=== PATIENT | female | born 1960 | race Caucasian/White ===

== ENCOUNTER → 2018-02-28 10:26 | Outpatient (CLI) | payer BC, SELFPAY ==
[2018-02-28 14:27] LABS: Microscopic, Urine URINE MICROSCOPIC (MICROSCOPIC)
[2018-02-28 15:33] LABS: Appearance,Urine CLEAR (Clear); Bilirubin,Urine Negative (Negative); Blood, Urine Negative (Negative); Color,Urine YELLOW (Yellow); Glucose,Urine (UA) Negative (Negative); Ketones,Urine Negative (Negative); Leukocyte Esterase,Urine Negative (Negative); Nitrate,Urine Negative (Negative); Protein,Urine Negative (Negative); Urobilinogen,Urine 0.2 EU/dl (0.2)
[2018-02-28 15:46] LABS: Basophils % 0.3 % (0.1-2.0); Eosinophils # 0.2 K/mm3 (0.0-0.4); Eosinophils % 1.6 % (0.1-12.0); Hematocrit 39.8 % (37.0-47.0); Hemoglobin 12.4 g/dL (12.2-16.2); Lymphocytes # 1.9 K/mm3 (0.7-4.5); Lymphocytes % 18.8 K/mm3 (10-50); Mean Corpuscular HGB Conc 31.2 g/dL (31.8-35.4); Mean Corpuscular Hemoglobin 25.7 pg (27.0-31.2); Mean Corpuscular Volume 82.4 fl (81-99); Mean Platelet Volume 9.5 fl (7.4-10.4); Monocytes # 0.4 K/mm3 (0.1-1.0); Monocytes % 4.2 % (1.7-9.3); Neutrophils # 7.6 K/mm3 (1.8-7.8); Neutrophils % 75.2 % (37.0-80.0); Platelet Count 263 K/mm3 (142-424); Red Blood Count 4.83 M/mm3 (4.20-5.40); Red Cell Distribution Width 15.2 % (11.5-17.5); White Blood Count 10.1 K/mm3 (4.8-10.8)
[2018-02-28 15:53] LABS: Bacteria,Urine 2+ /lpf; Squamous Epithelial Cell,Urine TNTC #/hpf (0-5); Yeast,Urine 1+ /lpf
[2018-02-28 15:56] LABS: Hemoglobin A1C 6.4 % (0.0-7.0)
[2018-02-28 16:05] LABS: Alanine Aminotransferase 25 U/L (12-78); Albumin Level 3.9 gm/dL (3.4-5.0); Albumin/Globulin Ratio 1.1 (1.1-1.8); Alkaline Phosphatase 193 U/L (46-116); Anion Gap 14.9 mEq/L (5-15); Aspartate Amino Transferase 12 U/L (15-37); Bilirubin,Total 0.2 mg/dL (0.2-1.0); Blood Urea Nitrogen 10 mg/dL (7-18); Calcium 9.1 mg/dL (8.5-10.1); Carbon Dioxide 28 mmol/L (21.0-32.0); Chloride 98 mmol/L (98-107); Chol/HDL Ratio 2.8 (1-3.5); Cholesterol 138 mg/dL (140-200); Estimated Glomerular Filt Rate 87 ml/min (>60); GFR (African American) 105 ML/MIN (>60); Globulin 3.4 gm/dl (1.3-3.2); Glucose 99 mg/dL (74-106); HDL Cholesterol 49 mg/dL (29-89); LDL Cholesterol 52 mg/dL (0-130); Potassium 3.9 mmoL/L (3.5-5.1); Sodium 137 mmol/L (136-145); Thyroid Stimulating Hormone 1.57 uIU/ml (0.358-3.740); Total Protein,Serum 7.3 gm/dL (6.4-8.2); Triglycerides 186 mg/dL (30-200); VLDL Cholesterol 37 mg/dL (0-40)
[2018-02-28 17:32] LABS: Erythrocyte Sedimentation Rate 30 mm/hr (0-30)
[2018-03-02 08:17] LABS: Creatinine, Urine 56.1 mg/dL (Not Estab.); Microalbumin, Urine <3.0 ug/mL (Not Estab.)
[2018-03-02 18:11] LABS: Hep A Ab, IgM Negative (Negative); Hepatitis B Core Antibody IgM Negative (Negative); Hepatitis B Surface Antigen Negative (Negative)
[2018-03-03 05:26] LABS: Hepatitis C Antibody <0.1 s/co ratio (0.0-0.9); Vitamin B12 607 pg/mL (232-1245)
[2018-03-05 07:46] LABS: Vitamin D 25 Hydroxy 32.2 ng/mL (30.0-100.0)
== END ==
PROVIDERS: Visit Provider Emergency Medicine
DX: I25.10 Atherosclerotic heart disease of native coronary artery without angina pectoris (principal); E11.9 Type 2 diabetes mellitus without complications
CPT/HCPCS: 80053; 80061; 80074; 81001; 82043; 82570; 82607; 82652; 83036; 84436; 84443; 85025; 85651; 87086

== ENCOUNTER → 2018-03-17 08:05 | Outpatient (CLI) | payer BC, SELFPAY ==
--- NOTE | 2018-03-17 08:10 | XR_ITS ---
XR DEXA axial skeleton HISTORY: ITS.REASON: Osteopenia ORDERING PHYSICIAN: Bipin Stahl MD PATIENT AGE: 57 years COMPARISON: None FINDINGS: The BMD measured at the left femoral neck is 0.865 g/cm squared with a T score of -1.2. This is considered Osteopenic according to the World Health Organization criteria. Fracture risk is Moderate. Treatment is advised. The L1 L4 density has a T score of 0.4 IMPRESSION: Osteopenia with moderate fracture risk. Treatment suggested. Suggest follow-up exam March 2020
== END ==
PROVIDERS: Family Provider Family Medicine; PCP Emergency Medicine; Visit Provider Emergency Medicine
DX: M85.80 Other specified disorders of bone density and structure, unspecified site (principal)
CPT/HCPCS: 77080

== ENCOUNTER → 2018-03-17 13:51 | Outpatient (REF) | payer BC, SELFPAY ==
[2018-03-17 18:28] LABS: Basophils % 0.6 % (0.1-2.0); Eosinophils # 0.2 K/mm3 (0.0-0.4); Hematocrit 36.2 % (37.0-47.0); Hemoglobin 11.2 g/dL (12.2-16.2); Lymphocytes # 1.6 K/mm3 (0.7-4.5); Lymphocytes % 20.3 K/mm3 (10-50); Mean Corpuscular HGB Conc 30.8 g/dL (31.8-35.4); Mean Corpuscular Hemoglobin 25.2 pg (27.0-31.2); Mean Corpuscular Volume 81.8 fl (81-99); Mean Platelet Volume 8.8 fl (7.4-10.4); Monocytes # 0.4 K/mm3 (0.1-1.0); Neutrophils # 5.6 K/mm3 (1.8-7.8); Neutrophils % 72.1 % (37.0-80.0); Platelet Count 234 K/mm3 (142-424); Red Blood Count 4.43 M/mm3 (4.20-5.40); Red Cell Distribution Width 15.2 % (11.5-17.5); White Blood Count 7.7 K/mm3 (4.8-10.8)
[2018-03-17 18:38] LABS: Alanine Aminotransferase 26 U/L (12-78); Albumin Level 3.6 gm/dL (3.4-5.0); Albumin/Globulin Ratio 1.1 (1.1-1.8); Alkaline Phosphatase 163 U/L (46-116); Anion Gap 13.9 mEq/L (5-15); Aspartate Amino Transferase 13 U/L (15-37); Bilirubin,Total 0.2 mg/dL (0.2-1.0); Blood Urea Nitrogen 11 mg/dL (7-18); C-Reactive Protein < 0.2 mg/L (0.0-0.9); Carbon Dioxide 30 mmol/L (21.0-32.0); Chloride 102 mmol/L (98-107); Creatinine,Serum 0.74 mg/dL (0.55-1.02); Estimated Glomerular Filt Rate 81 ml/min (>60); GFR (African American) 98 ML/MIN (>60); Globulin 3.2 gm/dl (1.3-3.2); Glucose 103 mg/dL (74-106); Potassium 3.9 mmoL/L (3.5-5.1); Sodium 142 mmol/L (136-145); Total Protein,Serum 6.8 gm/dL (6.4-8.2)
[2018-03-17 19:12] LABS: Erythrocyte Sedimentation Rate 34 mm/hr (0-30)
[2018-03-19 13:14] LABS: Anti-Centromere B Antibodies <0.2 AI (0.0-0.9); Anti-Jo-1 <0.2 AI (0.0-0.9); Anti-Smith Antibody <0.2 AI (0.0-0.9); Antichromatin Antibodies <0.2 AI (0.0-0.9); Antiscleroderma-70 Antibodies <0.2 AI (0.0-0.9); RNP Antibodies <0.2 AI (0.0-0.9); Sjogren's Anti-SS-A <0.2 AI (0.0-0.9); Sjogren's Anti-SS-B <0.2 AI (0.0-0.9)
[2018-03-19 17:08] LABS: Anti-DNA (DS) Ab Qn <1 IU/mL (0-9); RA Latex Turbid. <10.0 IU/mL (0.0-13.9)
[2018-03-21 17:25] LABS: Anti-Cyclic Citrullinated Pept 3 units (0-19)
== END ==
LOC: LAB 13:51
PROVIDERS: Visit Provider Emergency Medicine
DX: M19.90 Unspecified osteoarthritis, unspecified site (principal); M25.50 Pain in unspecified joint
CPT/HCPCS: 80053; 85025; 85651; 86140; 86200; 86225; 86235; 86431

== ENCOUNTER → 2018-03-21 10:58 | Outpatient (CLI) | payer BC, SELFPAY ==
--- NOTE | 2018-03-21 10:59 | CI_ITS ---
Cerebrovascular Exam Indications: 785.9 Bruit. IMPRESSIONS 1. The bilateral vertebral arteries are patent with normal antegrade flow. 2. Study suggests less than 20% stenosis involving the right internal carotid artery and the left internal carotid artery. 3. Tortuous carotid arteries seen bilaterally. History: Coronary artery disease. Carotid duplex study. Complete study and Doppler flow study including spectral analysis, color and mena scale imaging. Height: Height: 160cm. Height: 63in. Weight: Weight: 85.7kg. Weight: 188.6lb. Body mass index: BMI: 33.5kg/m^2. Body surface area: BSA: 1.99m^2. Location: Vascular laboratory. Patient status: Outpatient. Tables: Arterial flow: + +--------+--------+ Location V sys V ed + +--------+--------+ Right CCA - proximal 73.1cm/s 22cm/s + +--------+--------+ Right CCA - distal 60.5cm/s 18.9cm/s + +--------+--------+ Right ECA 58.9cm/s -------- + +--------+--------+ Right ICA - proximal 77cm/s 32.2cm/s + +--------+--------+ Right ICA - mid 74cm/s 30.6cm/s + +--------+--------+ Right ICA - distal 61.3cm/s 20.4cm/s + +--------+--------+ Right vertebral 29.1cm/s -------- + +--------+--------+ Left CCA - proximal 60.5cm/s 17.3cm/s + +--------+--------+ Left CCA - distal 60.5cm/s 20.4cm/s + +--------+--------+ Left ECA 54.2cm/s -------- + +--------+--------+ Left ICA - proximal 60.5cm/s 22.3cm/s + +--------+--------+ Left ICA - mid 69.9cm/s 28.8cm/s + +--------+--------+ Left ICA - distal 65.7cm/s 30.6cm/s + +--------+--------+ Left vertebral 35.4cm/s -------- + +--------+--------+ Velocity ratios: + + + + + + Right, V sys Right, V ed Left, V sys Left, V ed + + + + + + Max ICA/dist CCA 1.27 1.7 1.16 1.5 + + + + + + (Report amended ) Electronically signed by: Nate Sharma [id number]
== END ==
PROVIDERS: Family Provider Family Medicine; PCP Emergency Medicine; Visit Provider Emergency Medicine
DX: R09.89 Other specified symptoms and signs involving the circulatory and respiratory systems (principal)
CPT/HCPCS: 93880

== ENCOUNTER → 2018-03-26 06:43 | Outpatient (CLI) | payer BC, SELFPAY ==
--- NOTE | 2018-03-26 06:45 | NM_ITS ---
History and Indications: Coronary artery disease, hypertension, diabetes, hyperlipidemia, family history, chest pain, shortness of breath and palpitations Procedure: Patient received a 0.4 mg of intravenous Lexiscan, resting heart rate was 53 bpm resting blood pressure 107/61, with Lexiscan maximum heart achieved was 79 bpm which is less than 85% of the maximum predicted heart rate and a blood pressure was 88/52. With Lexiscan patient complained of shortness of breath. Electrocardiogram: Resting electrocardiogram showed sinus bradycardia nonspecific ST-T changes, with Lexiscan less than 1.[address] segment depression noted from the baseline EKG. The EKG portion of the Lexiscan Myoview is nondiagnostic. Cardiac stress and resting SPECT images: Cardiac stress and resting SPECT images were obtained using technetium 99 Myoview 30.5 mCi stress and 9.9 mCi at rest, gated SPECT further analysis of segmental wall motion and calculation of the ejection fraction also done. Cardiac stress and the suspect images show uniform myocardial activity without segmental perfusion abnormality, computer derived ejection fraction is over 65% with no regional wall motion abnormality, right ventricle is normal size and contractility. Conclusion: 1. The EKG portion of the Lexiscan Myoview is nondiagnostic. 2. No scintigraphic evidence of reversible ischemia seen, computer derived ejection fraction is over 65% with no regional wall motion abnormality, right ventricle is normal size and contractility.
--- NOTE | 2018-03-26 06:45 | CA_ITS ---
PROCEDURE: 2-D M-mode and color Doppler study INDICATIONS FOR THE TEST: Chest pain + COPD Heart Murmur Tobacco Smoking Palpitations+ Fatigue+ Syncope Edema Hypertension+Diabetes Mellitus+ Rheumatic Fever SOB+BALLARD+Obesity+Hyperlipidemia+ Family History HD Additional History CAD, STENT, ABN EKG, ASTHMA PATIENT INFORMATION HEIGHT: 63 WEIGHT:189 GENDER: Female B/P:102/62 2-D/M-MODE INTERPRETATION: 2-D MEASUREMENTS OBSERVED VALUES IN CMS Right Ventricular Dimension (RVDd) 1.6 Interventricular Septum (Thickness)(IVsd) 1.0 Left Ventricular Internal Dimensions(LVIDd) 5.0 Left Ventricular Posterior Wall (Thickness)(LVPWd) 0.8 Aortic Root 2.6 Aortic Cusp Separation 1.9 Left Atrial Dimensions (LAD) 3.6 2D 1. Left atrium is qualitatively mildly enlarged, left ventricle is normal size, left ventricle wall thickness is normal, there is preserved left ventricular systolic function, visually estimated ejection fraction of 55% with no regional wall motion abnormality. 2. The right atrium and the ventricular normal size and contractility. 3. The aortic valve is minimally thickened and fibrosed. 4. The mitral and tricuspid valvular grossly normal. 5. The pulmonic valve is poorly visualized. 6. No significant pericardial effusion noted. DOPPLER INTERROGATION: Doppler interrogation of the aortic, mitral and tricuspid valvular presence of mild mitral and tricuspid regurgitation, tricuspid regurgitation jet velocity is adequate for calculation of the right ventricular systolic pressure, grade 1 diastolic dysfunction seen without tissue Doppler evidence of raised left atrial pressure. CONCLUSION: 1. Mildly left atrium, normal left ventricular size, visually estimated ejection fraction 55% with no regional wall motion abnormality, grade 1 diastolic dysfunction seen without tissue Doppler evidence of raised left atrial pressure. 2. Mild mitral and tricuspid regurgitation 3. No significant pericardial effusion noted.
== END ==
PROVIDERS: Family Provider Family Medicine; PCP Emergency Medicine; Visit Provider Internal Medicine
DX: I25.10 Atherosclerotic heart disease of native coronary artery without angina pectoris (principal); R06.09 Other forms of dyspnea; I20.9 Angina pectoris, unspecified; R00.1 Bradycardia, unspecified; R94.31 Abnormal electrocardiogram [ECG] [EKG]; I10 Essential (primary) hypertension; K21.9 Gastro-esophageal reflux disease without esophagitis; E78.49 Other hyperlipidemia
CPT/HCPCS: 78452; 93017; 93306; A9502; J2785

== ENCOUNTER → 2018-03-28 15:13 | Outpatient (CLI) | payer BC, SELFPAY ==
--- NOTE | 2018-03-28 15:14 | MM_ITS ---
MM Dig screening mamm BI w/CAD ORDERING PHYSICIAN : Bipin Stahl MD PATIENT AGE: 57 years GENDER: Female COMPARISON: Baseline study no previous INDICATION: ITS.REASON: screening TECHNIQUE: Standard CC and MLO images were obtained. R2 CAD reviewed. FINDINGS: Low-density breast bilaterally with scattered benign calcifications. RIGHT BREAST:No areas of concern follow-up in one year LEFT BREAST: Scattered areas of density minimal asymmetric densities but these are unimpressive and most likely benign. But most notable is the area labeled X at the medial superior breast fairly low-density but it measures 11 mm x 7 mm on I believe follow-up in 6 months would be the most reasonable approach & course of action. However would suggest a left mammogram 6 months to better establish baseline, & better confirm stability of scattered minimal areas of most likely Benign-appearing nodularity IMPRESSION: Baseline mammogram-------- 1. LEFT BREAST suggest follow-up left mammogram 6 months to confirm stability of Scattered small benign-appearing fairly low density nodular densities seen at left breast.. (Most notable is of these is the low-density area labeled X at medial superior aspect retroareolar left breast.) 2. Right breast. No areas of concern Follow-up in one year the adequate on the right BI-RADS Category: 3 Probably Benign Finding Short Term Follow-up RECOMMENDED FOLLOW-UP: 6M 6 MONTH FOLLOW-UP (A letter has been sent to the patient regarding results of the study.)
== END ==
PROVIDERS: Family Provider Family Medicine; PCP Emergency Medicine; Visit Provider Emergency Medicine
DX: Z12.31 Encounter for screening mammogram for malignant neoplasm of breast (principal)
CPT/HCPCS: 77067

== ENCOUNTER → 2018-04-04 14:30 | Outpatient (CLI) | payer BC, SELFPAY ==
--- NOTE | 2018-04-04 14:31 | MR_ITS ---
MR lumbar spine wo con, MR 3-d myelogram/MRCP HISTORY: PT states low back pain . Bilateral knee and leg pain. After sitting or standing for long period PT will have numbness in legs. LT leg worse. ITS.REASON: chronic pain ORDERING PHYSICIAN: Bipin Stahl MD PATIENT AGE: 57 years Comparison: None TECHNIQUE: Standard multiplanar multiecho sequences are performed without contrast. 3-D MIP and myelographic images are also rendered and reviewed FINDINGS: There is normal alignment. The spinal cord ends at the L1-L2 level. T11-T12 and T12-L1 show slight disc desiccation. L1-L2: Unremarkable. L2-L3: Unremarkable disc space. There is slight decreased T1 and increased T2 signal involving the anterior inferior aspect of the L2 vertebral body which may reflect some endplate changes. L3-L4: Mild concentric bulging disc. L4-L5: Mild facet and ligamentum flavum hypertrophy. There is a small amount fluid within the facet joints. There is mild bilateral foraminal narrowing. L5-S1: Unremarkable. No disc herniation or canal stenosis is evident. IMPRESSION: 1. Mild facet arthritic change L4-L5 with mild bilateral foraminal narrowing. 2. Other mild degenerative changes of the disc spaces. 3. No canal stenosis or disc herniation
== END ==
PROVIDERS: Family Provider Family Medicine; PCP Emergency Medicine; Visit Provider Emergency Medicine
DX: M54.9 Dorsalgia, unspecified (principal); G89.29 Other chronic pain
CPT/HCPCS: 72148; 76376

== ENCOUNTER → 2018-04-14 14:49 | Outpatient (POV) | payer BC, SELFPAY ==
[2018-04-14 15:08] VITALS: BP 111/59; PULSE 61; RESP 18; O2SAT 97
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
== END ==
PROVIDERS: PCP Emergency Medicine; Visit Provider Clinical Nurse Specialist Family Health
DX: M51.16 Intervertebral disc disorders with radiculopathy, lumbar region (principal); M50.30 Other cervical disc degeneration, unspecified cervical region
CPT/HCPCS: 99202

== ENCOUNTER → 2018-04-16 13:55 | Outpatient (CLI) | payer BC, SELFPAY | PROVIDERS: PCP Emergency Medicine; Visit Provider Internal Medicine Cardiovascular Disease | DX: G47.9 Sleep disorder, unspecified (principal); R06.09 Other forms of dyspnea; R06.83 Snoring; R40.0 Somnolence; E78.4 Other hyperlipidemia; I10 Essential (primary) hypertension; I20.9 Angina pectoris, unspecified; I25.10 Atherosclerotic heart disease of native coronary artery without angina pectoris; K21.9 Gastro-esophageal reflux disease without esophagitis; R00.1 Bradycardia, unspecified; R94.31 Abnormal electrocardiogram [ECG] [EKG] | CPT/HCPCS: 95806 ==

== ENCOUNTER → 2018-07-30 13:35 | Outpatient (CLI) | payer BC, SELFPAY ==
[2018-07-30 14:36] LABS: Blood Urea Nitrogen 11 mg/dL (7-18); Calcium 8.9 mg/dL (8.5-10.1); Carbon Dioxide 30 mmol/L (21.0-32.0); Chloride 99 mmol/L (98-107); Creatinine,Serum 0.77 mg/dL (0.55-1.02); Estimated Glomerular Filt Rate 78 ml/min (>60); GFR (African American) 94 ML/MIN (>60); Glucose 97 mg/dL (74-106); Sodium 138 mmol/L (136-145)
== END ==
PROVIDERS: Visit Provider Emergency Medicine
DX: M54.10 Radiculopathy, site unspecified (principal)
CPT/HCPCS: 80048

== ENCOUNTER → 2018-08-18 13:44 | Outpatient (POV) | payer BC, SELFPAY ==
[2018-08-18 14:07] VITALS: BP 128/89; PULSE 63; RESP 18; O2SAT 99; BMI 33.6
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
== END ==
PROVIDERS: PCP Emergency Medicine; Visit Provider Clinical Nurse Specialist Family Health
DX: M50.30 Other cervical disc degeneration, unspecified cervical region (principal); M51.36 Other intervertebral disc degeneration, lumbar region
CPT/HCPCS: 99213

== ENCOUNTER → 2018-09-10 17:47 | Outpatient (CLI) | payer BC, SELFPAY ==
[2018-09-10 18:45] LABS: Alanine Aminotransferase 52 U/L (12-78); Albumin Level 3.8 gm/dL (3.4-5.0); Albumin/Globulin Ratio 1.1 (1.1-1.8); Alkaline Phosphatase 134 U/L (46-116); Anion Gap 11.7 mEq/L (5-15); Aspartate Amino Transferase 31 U/L (15-37); Bilirubin,Total 0.2 mg/dL (0.2-1.0); Blood Urea Nitrogen 14 mg/dL (7-18); Calcium 9.7 mg/dL (8.5-10.1); Carbon Dioxide 32 mmol/L (21.0-32.0); Chloride 100 mmol/L (98-107); Chol/HDL Ratio 2.8 (1-3.5); Cholesterol 187 mg/dL (140-200); Creatinine,Serum 0.78 mg/dL (0.55-1.02); Estimated Glomerular Filt Rate 76 ml/min (>60); Free T4 (Free Thyroxine) 0.85 ng/dl (0.76-1.46); GFR (African American) 92 ML/MIN (>60); Globulin 3.6 gm/dl (1.3-3.2); Glucose 95 mg/dL (74-106); HDL Cholesterol 66 mg/dL (29-89); LDL Cholesterol 89 mg/dL (0-130); Potassium 3.7 mmoL/L (3.5-5.1); Sodium 140 mmol/L (136-145); Thyroid Stimulating Hormone 3.24 uIU/ml (0.358-3.740); Total Protein,Serum 7.4 gm/dL (6.4-8.2); Triglycerides 160 mg/dL (30-200); VLDL Cholesterol 32 mg/dL (0-40)
[2018-09-10 18:59] LABS: Basophils % 0.5 % (0.1-2.0); Eosinophils # 0.2 K/mm3 (0.0-0.4); Eosinophils % 1.7 % (0.1-12.0); Hemoglobin 11.1 g/dL (12.2-16.2); Lymphocytes # 2.3 K/mm3 (0.7-4.5); Lymphocytes % 24.2 % (10-50); Mean Corpuscular Hemoglobin 23.7 pg (27.0-31.2); Mean Corpuscular Volume 79.2 fl (81-99); Mean Platelet Volume 7.8 fl (7.4-10.4); Monocytes # 0.4 K/mm3 (0.1-1.0); Monocytes % 4.3 % (1.7-9.3); Neutrophils # 6.5 K/mm3 (1.8-7.8); Neutrophils % 69.4 % (37.0-80.0); Platelet Count 255 K/mm3 (142-424); Red Blood Count 4.68 M/mm3 (4.20-5.40); Red Cell Distribution Width 17.4 % (11.5-17.5); White Blood Count 9.3 K/mm3 (4.8-10.8)
[2018-09-10 20:36] LABS: Hemoglobin A1C 6.4 % (0.0-7.0)
[2018-09-12 07:27] LABS: Vitamin D 25 Hydroxy 31.8 ng/mL (30.0-100.0)
[2018-09-12 09:29] LABS: Creatinine, Urine 136.4 mg/dL (Not Estab.); Microalbumin, Urine 3.1 ug/mL (Not Estab.)
== END ==
PROVIDERS: Visit Provider Emergency Medicine
DX: E11.9 Type 2 diabetes mellitus without complications (principal); Z79.84 Long term (current) use of oral hypoglycemic drugs
CPT/HCPCS: 80053; 80061; 82043; 82570; 82652; 83036; 84439; 84443; 85025

== ENCOUNTER → 2018-09-30 12:48 | Outpatient (CLI) | payer BC, SELFPAY ==
--- NOTE | 2018-09-30 12:52 | MM_ITS ---
MM Dig mamm DX unilat LT CAD INDICATION: Follow-up abnormal mammogram ORDERING PHYSICIAN: Bipin Stahl MD PATIENT AGE: 57 years COMPARISON: 03/28/2018 TECHNIQUE: Standard images performed of the left breast FINDINGS: Fatty replaced fibroglandular tissue. Previously noted density in the superior aspect of the left breast is not redemonstrated on today's exam and is felt to have been due to overlapping fibroglandular tissue. This could have also been due to a cyst which has resolved. A benign-appearing nodular densities present in the upper aspect of the left breast unchanged measuring 5 mm IMPRESSION: Negative left mammogram, no evidence of malignancy Recommend continue screening mammogram in April 05, 2019 BI-RADS Category: 2 Benign Finding(s) RECOMMENDED FOLLOW-UP: 6M - 6 MONTH FOLLOW-UP (A letter has been sent to the patient regarding results of the study.)
== END ==
PROVIDERS: PCP Emergency Medicine; Visit Provider Emergency Medicine
DX: R92.8 Other abnormal and inconclusive findings on diagnostic imaging of breast (principal)
CPT/HCPCS: 77065

== ENCOUNTER → 2018-10-13 08:45 | Outpatient (CLI) | payer BC, SELFPAY ==
--- NOTE | 2018-10-13 08:47 | XR_ITS ---
XR DEXA axial skeleton HISTORY: ITS.REASON: osteopenia ORDERING PHYSICIAN: Bipin Stahl MD PATIENT AGE: 57 years COMPARISON: 03/17/2018 FINDINGS: The BMD measured at the Left femoral neck is 0.934 g/cm squared with a T score of -0.7. This is considered Normal according to the World Health Organization criteria. Fracture risk is Low. L1 L4 density has T score of 0.4. The L-spine density has decreased by 0.6% and the hip density has decreased by 0.1%. IMPRESSION: Normal bone density. Recommend follow-up exam in September 2020
== END ==
PROVIDERS: PCP Emergency Medicine; Visit Provider Emergency Medicine
DX: M85.89 Other specified disorders of bone density and structure, multiple sites (principal)
CPT/HCPCS: 77080

== ENCOUNTER → 2019-04-14 08:15 | Outpatient (CLI) | payer OTHER, SELFPAY ==
--- NOTE | 2019-04-14 09:00 | MM_ITS ---
PROCEDURE: MM DIG SCREENING MAMM BI W/CAD CLINICAL INDICATION: screening There is a history of breast cancer in the patient's maternal grandmother and paternal aunt. COMPARISON: [facility] MM Dig screening mamm BI w/CAD from 03/28/2018 DXLT MM Dig mamm DX unilat LT CAD from 09/30/2018 TECHNIQUE: Standard CC and MLO images were obtained. R2 CAD reviewed. FINDINGS: The breasts are composed primarily of fat with mild diffuse scattered fibroglandular densities throughout each breast. There are few scattered benign-appearing microcalcifications in each breast. There is a stable benign-appearing nodular density upper-outer quadrant left breast. There is no suspicious lesion and no suspicious microcalcifications. IMPRESSION: Fatty type breast parenchyma with no suspicious lesions seen BI-RAD Category: 2 Benign Finding(s) FOLLOW-UP: 1YR 1 Year Follow-up (A letter has been sent to the patient regarding results of the study.) Dictated by: Dr. Junaid Marcelo MD 04/15/2019 19:[address] Junaid Marcelo MD in [place] 04/15/2019 19:39
== END ==
PROVIDERS: PCP Emergency Medicine; Visit Provider Emergency Medicine
DX: Z12.31 Encounter for screening mammogram for malignant neoplasm of breast (principal)
CPT/HCPCS: 77067

== ENCOUNTER → 2019-06-18 06:22 | Outpatient (CLI) | payer MEDICARE, SELFPAY ==
--- NOTE | 2019-06-18 06:25 | CA_ITS ---
APPROVED REPORT EXAM: Comprehensive 2D, Doppler, and color-flow Echocardiogram Grinder Machine Setter: Kerry Patel RDCS Ht: 5 ft 3 in Wt: 205lbs BSA: 1.95 BP: 99/40 mmHg Indications: CAD,SOA,PRE-OP CLEARANCE,HTN,HLP,DM,OBESITY 2D Dimensions LVOT 1.83 cm (M/F) 1.5-2.5 M-Mode Dimensions RVDd 2.77 cm (0.9-2.6) LVDd 5.44 cm (3.5-5.7) LVDs 3.23 cm (3.5-5.7) IVSd 0.80 cm (0.6-1.1) PWd 0.95 cm (0.6-1.1) EF (Teich) 70.80% FS 40.60% EDV (Teich) 143.70 mL ESV (Teich) 41.90 mL LV Diastology E/A Ratio 1.32 Mitral Valve MV A Velocity 73.00 (40-130 cm/s) Left Ventricle Left atrium is mildly enlarged, left ventricle is normal size, mild concentric left ventricular hypertrophy, visually estimated ejection fraction 55% with no regional wall motion abnormality, grade 2 diastolic dysfunction seen without tissue Doppler evidence of raise left atrial pressure. Right Ventricle Right atrium and right ventricle mildly enlarged with normal contractility. Aortic Valve Aortic valve is minimally thickened and fibrosed, there is no aortic stenosis. Mitral Valve Mitral valve is grossly normal, there is mild mitral regurgitation. Tricuspid Valve Tricuspid valve is grossly normal, there is mild tricuspid regurgitation, calculated right ventricular systolic pressure is 46 mmHg which is moderately elevated. Pulmonic Valve Pulmonic valve is poorly visualized. Great Vessels Aortic root is normal size. Pericardium No significant pericardial effusion noted. Conclusion 1. Biatrial alignment, normal left ventricular size, mild concentric left ventricular hypertrophy, visually estimated ejection fraction 55% with no regional wall motion abnormality, grade 2 diastolic dysfunction seen without tissue Doppler evidence of raise left atrial pressure. 2. Mildly enlarged right atrium and right ventricle with normal contractility. 3. Mild mitral and tricuspid regurgitation. 4. No significant pericardial effusion noted. Electronically signed by : Alfred Raman, 06/19/2019 13:41:26
--- NOTE | 2019-06-18 06:32 | CA_ITS ---
APPROVED REPORT Exam: Pharmacologic Technologist: shalonda aguirre, Ht: 5 ft 3 in Wt: 200 lbs BSA: 1.93 m2 HR: 55 bpm BP: 132/64 mmHg Indications: CAD Medical History Medications: Metformin,,,,, Trazadone,,,,, Lasix,,,,, SyMBICORT,,,,, Tramadol,,,,, Montelukast,,,,, Fluoxetin,,,,, DicyCLOMINE,,,,, PriMIDONE,,,,, Sumatriptan,,,,, KETOROLAC,,,,, Ranolazine,,,,, Allergies: No known drug allergies Cardiac Risk Factors: HTN, Diabetes (non-insulin) Stress Test Details Test: LEXISCAN HR Resting HR: 56 bpm Max Heart Rate (APMHR): 163 bpm Max HR Achieved: 78 bpm Target HR (85% APMHR): 138 bpm % of APMHR: 47 Recovery HR: 67 bpm BP Resting BP: 132/64 mmHg Max BP: 132/64 mmHg Recovery BP: 117.0/59.0 mmHg ECG Resting ECG: Sinus Rhythm Medications Administered Cardizem Injection ( mg at ) Clinical Exercise duration: 04:00 min Highest Stage Achieved: Exercise capacity: 1.0 METs Stress ECG Conclusion Lexiscan stress completed. No coomplaints during infusion. Occasional PVC. Less than 1.5mm ST depression. Images reported seperately. Test Summary REST 06:55 . . 56 . 132/ 64 . . Stage 1 01:00 . . 75 . . . . Stage 2 01:00 . . 75 . 113/ 61 . . Stage 3 01:00 . . 74 . 120/ 65 . . Stage 4 01:00 . . 71 . 114/ 66 . Stop exercise at 04:00 RECOVERY 01:00 . . 72 . 116/ 66 . . RECOVERY 02:00 . . 70 . 117/ 59 . . RECOVERY 03:00 . . 67 . 122/ 64 . . RECOVERY 04:00 . . 64 . 122/ 64 . . RECOVERY 04:03 . . 64 . 122/ 64 . . Electronically signed by : Alfred Raman, 06/19/2019 12:24:17
--- NOTE | 2019-06-18 06:32 | NM_ITS ---
APPROVED REPORT Exam: Nuclear Stress Test Indication: short of breath, pre-op Stress Tech: Xin Chavarria AR Tech:Myra Sherwood YENYHerber RT(R)(N) Ht: 5 ft 3 in Wt: 200 lbs Bra Size: 44ddd HR: 56 bpm BP: 132/64 mmHg BSA: 1.93 m2 BMI: 35.4 History: short of breath, pre-op Procedure: Patient received a 0.4 mg of intravenous Lexiscan, resting heart rate 56 bpm, resting blood pressure 132/64 mmHg, with Lexiscan maximum heart rate achived was 78 bpm which is Less than 85 % of the maximum predicted heart rate and blood pressure was 132/64 mmHg. With Lexiscan, patient denied any complaint of chest pain. Electrocardiogram Resting electrocardiogram showed sinus rhythm nonspecific ST-T changes, with Lexiscan there is less than 1.[address] segment depression noted from the baseline EKG. The EKG portion of the Lexiscan Myoview is nondiagnostic. Cardiac Stress and Resting SPECT Images: Cardiac Stress and Resting SPECT images were obtained using technetium 99m Myoview 32.5 mCi stress and 10.66 mCi at rest. Gated SPECT with analysis of segmental wall motion and calculation of the ejection fraction also done. Cardiac stress and resting SPECT images show decreases activity in the anterior and apical wall which improves on the resting images suggestive of reversible ischemia, computer derived ejection fraction is over 65% with no regional wall motion abnormality, right ventricle is normal size and contractility. Conclusion: 1. The EKG portion of the Lexiscan Myoview is nondiagnostic. 2. Scintigraphic evidence of reversible ischemia involving the anterior, apical and anteroseptal wall, computer derived ejection fraction is over 65% with no regional wall motion abnormality, right ventricle is normal size and contractility. 3. Abnormal Lexiscan Myoview study. Electronically signed by : Alfred Raman, 06/19/2019 12:29:59
--- NOTE | 2019-06-18 09:27 | HMH.ITSHM ---
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 [] metoprolol gabapentin clodogrel tramadol atrovastain
== END ==
PROVIDERS: PCP Emergency Medicine; Visit Provider Internal Medicine Cardiovascular Disease
DX: R06.09 Other forms of dyspnea (principal); E11.9 Type 2 diabetes mellitus without complications; E66.9 Obesity, unspecified; E78.5 Hyperlipidemia, unspecified; I11.9 Hypertensive heart disease without heart failure; I25.118 Atherosclerotic heart disease of native coronary artery with other forms of angina pectoris; R07.9 Chest pain, unspecified; Z01.818 Encounter for other preprocedural examination; Z79.84 Long term (current) use of oral hypoglycemic drugs
CPT/HCPCS: 78452; 93017; 93306; A9502; J2785

== ENCOUNTER → 2019-06-26 13:30 | Outpatient (CLI) | payer MEDICARE, SELFPAY ==
[2019-06-26 14:04] LABS: Alanine Aminotransferase 19 U/L (12-78); Albumin Level 3.6 gm/dL (3.4-5.0); Albumin/Globulin Ratio 1.2 (1.1-1.8); Alkaline Phosphatase 148 U/L (46-116); Aspartate Amino Transferase 6 U/L (15-37); Bilirubin,Total 0.2 mg/dL (0.2-1.0); Blood Urea Nitrogen 7 mg/dL (7-18); Calcium 8.5 mg/dL (8.5-10.1); Carbon Dioxide 30 mmol/L (21.0-32.0); Chloride 92 mmol/L (98-107); Chol/HDL Ratio 2.4 (1-3.5); Cholesterol 146 mg/dL (140-200); Estimated Glomerular Filt Rate 103 ml/min (>60); GFR (African American) 125 ML/MIN (>60); Globulin 3.1 gm/dl (1.3-3.2); Glucose 94 mg/dL (74-106); HDL Cholesterol 60 mg/dL (29-89); LDL Cholesterol 69 mg/dL (0-130); Sodium 132 mmol/L (136-145); T4 (Thyroxine) 9.2 ug/dl (4.7-13.3); Total Protein,Serum 6.7 gm/dL (6.4-8.2); Triglycerides 86 mg/dL (30-200); VLDL Cholesterol 17 mg/dL (0-40)
[2019-06-26 14:09] LABS: Basophils # 0.1 K/mm3 (0-0.2); Basophils % 0.6 % (0.1-2.0); Eosinophils # 0.2 K/mm3 (0.0-0.4); Eosinophils % 1.7 % (0.1-12.0); Hematocrit 31.5 % (37.0-47.0); Hemoglobin 9.6 g/dL (12.2-16.2); Lymphocytes # 1.6 K/mm3 (0.7-4.5); Lymphocytes % 18.5 % (10-50); Mean Corpuscular HGB Conc 30.6 g/dL (31.8-35.4); Mean Corpuscular Hemoglobin 22.1 pg (27.0-31.2); Mean Corpuscular Volume 72.4 fl (81-99); Mean Platelet Volume 7.8 fl (7.4-10.4); Monocytes # 0.4 K/mm3 (0.1-1.0); Monocytes % 4.5 % (1.7-9.3); Neutrophils # 6.6 K/mm3 (1.8-7.8); Neutrophils % 74.6 % (37.0-80.0); Platelet Count 317 K/mm3 (142-424); Red Blood Count 4.35 M/mm3 (4.20-5.40); Red Cell Distribution Width 16.8 % (11.5-17.5); White Blood Count 8.8 K/mm3 (4.8-10.8)
[2019-06-26 16:34] LABS: Hemoglobin A1C 6.5 % (0.0-7.0)
[2019-06-26 17:09] LABS: Ferritin 8 ng/mL (8-388)
[2019-06-27 10:39] LABS: Creatinine, Urine 38.2 mg/dL (Not Estab.); Microalbumin, Urine 3.3 ug/mL (Not Estab.)
[2019-06-28 08:46] LABS: Iron 23 ug/dL (27-159); UIBC 487 ug/dL (131-425)
[2019-06-28 10:35] LABS: Iron Saturation 5 % (15-55)
[2019-06-28 18:00] LABS: Vitamin D 25 Hydroxy 23.4 ng/mL (30.0-100.0)
== END ==
PROVIDERS: Physician Assistant; Visit Provider Emergency Medicine
DX: R07.9 Chest pain, unspecified (principal); R06.00 Dyspnea, unspecified; L03.90 Cellulitis, unspecified; D64.9 Anemia, unspecified; E11.9 Type 2 diabetes mellitus without complications; Z79.84 Long term (current) use of oral hypoglycemic drugs
CPT/HCPCS: 80053; 80061; 82043; 82570; 82652; 82728; 83036; 83540; 83550; 84436; 84443; 85025

== ENCOUNTER → 2019-07-27 11:17 | Outpatient (CLI) | payer MEDICARE, SELFPAY ==
[2019-07-27 12:17] LABS: Basophils % 0.5 % (0.1-2.0); Eosinophils # 0.2 K/mm3 (0.0-0.4); Eosinophils % 1.6 % (0.1-12.0); Hematocrit 30.8 % (37.0-47.0); Hemoglobin 9.3 g/dL (12.2-16.2); Lymphocytes # 1.4 K/mm3 (0.7-4.5); Mean Corpuscular HGB Conc 30.2 g/dL (31.8-35.4); Mean Corpuscular Hemoglobin 22.2 pg (27.0-31.2); Mean Corpuscular Volume 73.6 fl (81-99); Mean Platelet Volume 7.7 fl (7.4-10.4); Monocytes # 0.3 K/mm3 (0.1-1.0); Monocytes % 3.7 % (1.7-9.3); Neutrophils # 7.2 K/mm3 (1.8-7.8); Neutrophils % 79.1 % (37.0-80.0); Platelet Count 296 K/mm3 (142-424); Red Blood Count 4.18 M/mm3 (4.20-5.40); White Blood Count 9.1 K/mm3 (4.8-10.8)
[2019-07-27 12:44] LABS: Anion Gap 14.2 mEq/L (5-15); Blood Urea Nitrogen 9 mg/dL (7-18); Calcium 8.4 mg/dL (8.5-10.1); Carbon Dioxide 28 mmol/L (21.0-32.0); Chloride 96 mmol/L (98-107); Creatinine,Serum 0.79 mg/dL (0.55-1.02); Estimated Glomerular Filt Rate 75 ml/min (>60); GFR (African American) 91 ML/MIN (>60); Glucose 98 mg/dL (74-106); Potassium 4.2 mmoL/L (3.5-5.1); Sodium 134 mmol/L (136-145)
== END ==
PROVIDERS: Visit Provider Nurse Practitioner Family
DX: I51.89 Other ill-defined heart diseases; E78.5 Hyperlipidemia, unspecified; I25.10 Atherosclerotic heart disease of native coronary artery without angina pectoris; R06.00 Dyspnea, unspecified; R07.9 Chest pain, unspecified
CPT/HCPCS: 36415; 80048; 85025

== ENCOUNTER → 2019-08-04 11:35 | Outpatient (CLI) | payer MEDICARE, SELFPAY | PROVIDERS: PCP Emergency Medicine; Visit Provider Urology | DX: D64.9 Anemia, unspecified (principal); E78.5 Hyperlipidemia, unspecified; I11.9 Hypertensive heart disease without heart failure; I25.10 Atherosclerotic heart disease of native coronary artery without angina pectoris; R00.2 Palpitations | CPT/HCPCS: 93270 ==

== ENCOUNTER → 2019-08-07 06:00 | Outpatient (CLI) | payer MEDICARE, SELFPAY ==
[2019-08-10 12:13] LABS: Occult Blood,Stool Negative (Negative)
[2019-08-10 12:13] LABS: Occult Blood,Stool Negative (Negative)
[2019-08-10 12:13] LABS: Occult Blood,Stool Positive (Negative)
== END ==
PROVIDERS: Visit Provider Nurse Practitioner Family
DX: D64.9 Anemia, unspecified (principal)
CPT/HCPCS: 82272; G0328

== ENCOUNTER 2019-08-21 09:00 | Outpatient (RCR) | payer MEDICARE, SELFPAY | END 2019-08-21 09:05 | disposition home or self-care (01) | LOC: PT 09:00 | PROVIDERS: PCP Emergency Medicine; Visit Provider Nurse Practitioner Family | DX: M25.512 Pain in left shoulder (principal) | CPT/HCPCS: 97010; 97012; 97014; 97035; 97110; 97140; 97163; G0283 ==

== ENCOUNTER → 2019-10-09 11:43 | Outpatient (CLI) | payer MEDICARE, SELFPAY | PROVIDERS: PCP Emergency Medicine; Visit Provider Emergency Medicine | DX: G47.33 Obstructive sleep apnea (adult) (pediatric) (principal) | CPT/HCPCS: G0399 ==

== ENCOUNTER → 2020-01-12 10:12 | Outpatient (CLI) | payer MEDICARE, SELFPAY ==
--- NOTE | 2020-01-12 10:14 | CA_ITS ---
APPROVED REPORT Right Lower Extremity Venous Study for DVT. Jawbone Breaker: MARIKA HammondT Indications Lower Extremity Pain: Right Lower Extremity Edema: Right edema rt foot, rt knee surgery 10/2019 Risk Factors Obesity Medications Plavix Vein Imaging CFV (R): compressive, spontaneous, phasic, augmentation FEM (R): compressive, spontaneous, phasic, augmentation POP (R): compressive, spontaneous, phasic, augmentation PTV (R): Compressible GSV (R): Compressible Peroneals (R):Compressible GAS (R): Compressible Findings Study suggests no evidence of DVT of the right lower extremity. Study suggests no evidence of SVT of the right lower extremity. Conclusion Study suggests no evidence of DVT of the right lower extremity. Study suggests no evidence of SVT of the right lower extremity. Critical Notification Physician Notified Date: 01/12/2020 Time: 10:37 Physician Name: Jose R Atkinson office Electronically signed by : Bay Hernandez, 01/14/2020 08:50:59
[2020-01-12 11:30] LABS: Basophils % 0.8 % (0.1-2.0); Eosinophils # 0.2 K/mm3 (0.0-0.4); Eosinophils % 3.1 % (0.1-12.0); Hematocrit 33.5 % (37.0-47.0); Hemoglobin 10.5 g/dL (12.2-16.2); Lymphocytes # 1.3 K/mm3 (0.7-4.5); Lymphocytes % 26.6 % (10-50); Mean Corpuscular HGB Conc 31.3 g/dL (31.8-35.4); Mean Corpuscular Hemoglobin 25.3 pg (27.0-31.2); Mean Platelet Volume 8.6 fl (7.4-10.4); Monocytes # 0.3 K/mm3 (0.1-1.0); Monocytes % 6.5 % (1.7-9.3); Platelet Count 191 K/mm3 (142-424); Red Blood Count 4.14 M/mm3 (4.20-5.40); Red Cell Distribution Width 16.6 % (11.5-17.5); White Blood Count 4.8 K/mm3 (4.8-10.8)
[2020-01-12 11:32] LABS: Chloride 103 mmol/L (98-107); Potassium 4.9 mmoL/L (3.5-5.1); Sodium 138 mmol/L (136-145)
[2020-01-12 11:34] LABS: Blood Urea Nitrogen 9 mg/dl (7-17); Estimated Glomerular Filt Rate 103 ml/min (>60); GFR (African American) 124 ML/MIN (>60)
[2020-01-12 11:35] LABS: Alanine Aminotransferase 16 U/L (12-78); Albumin Level 3.4 g/dl (3.5-5.0); Albumin/Globulin Ratio 1.4 (1.1-1.8); Alkaline Phosphatase 78 U/L (38-126); Anion Gap 11.9 mEq/L (5-15); Aspartate Amino Transferase 17 U/L (14-36); Calcium 8.8 mg/dl (8.4-10.2); Carbon Dioxide 28 mmol/L (22.0-30.0); Cholesterol 118 mg/dl (140-200); Globulin 2.4 g/dL (1.3-3.2); Glucose 83 mg/dl (74-100); Total Protein,Serum 5.8 g/dl (6.3-8.2); Triglycerides 138 mg/dl (30-150); VLDL Cholesterol 28 mg/dL (0-40)
[2020-01-12 11:36] LABS: Bilirubin,Total 0.1 mg/dl (0.2-1.3); Chol/HDL Ratio 2.2 (1-3.5); HDL Cholesterol 53 mg/dl (40-60)
[2020-01-12 11:47] LABS: Direct LDL Cholesterol 51.52 mg/dL (100-129)
[2020-01-12 11:49] LABS: Hemoglobin A1C 6.1 % (4.0-6.0)
== END ==
PROVIDERS: PCP Emergency Medicine; Visit Provider Family Medicine
DX: M79.604 Pain in right leg (principal); R60.9 Edema, unspecified; E11.9 Type 2 diabetes mellitus without complications; I11.9 Hypertensive heart disease without heart failure
CPT/HCPCS: 36415; 80053; 80061; 83036; 85025; 93971

== ENCOUNTER 2020-03-09 13:23 | Emergency (ER) | payer MEDICARE, MEDICAID, SELFPAY ==
[2020-03-09 13:23] VITALS: BP 139/79; PULSE 73; RESP 19; TEMP 36.6; O2SAT 96; BMI 38.9
--- NOTE | 2020-03-09 13:38 | XR_ITS ---
PROCEDURE: XR FINGER RT MIN 2V CLINICAL INDICATION: wound Dog bite, pain COMPARISON: No exams were available for comparison FINDINGS: There has been amputation at the proximal aspect of the distal phalanx of the 5th finger. Overlying bandage artifact obscures fine detail. There is a small bony fragment noted at the amputation site anteriorly on the lateral view. IMPRESSION: Status post amputation at the proximal aspect of the distal phalanx of the 5th finger Dictated by: Nate Sharma MD 03/09/2020 16:09 Nate Sharma MD in [place] 03/09/2020 16:09
--- NOTE | 2020-03-09 13:39 | HMH.EDGENADL ---
ED Disposition Clinical Impression: Dog bite, hand Qualifiers: Encounter type: initial encounter Laterality: right Qualified Code(s): S61.451A - Open bite of right hand, initial encounter Partial traumatic amputation of finger through phalanx Qualifiers: Encounter type: initial encounter Qualified Code(s): S68.629A - Partial traumatic transphalangeal amputation of unspecified finger, initial encounter Disposition: Home, Self-Care Condition on Discharge: Good Additional Instructions: Augmentin as prescribed. Do not eat or drink anything after midnight tonight. See Dr. Howell in her office tomorrow at 9 AM. Keep bandage on until then. Keep hand elevated. Mcallister as needed for pain. Do not take tramadol while taking Mcallister. Additional instructions for CONTROLLED SUBSTANCES: You have been prescribed a medication that is a controlled substance. Controlled substances include pain medications known as opiates and sedative nerve medications known as benzodiazepines. Tramadol, fioricet, and gabapentin are also controlled substances. Some common opiates include: Codeine (such as Tylenol #3) Hydrocodone (Vicodin, Lortab, Lorcet, Mcallister) Oxycodone (Percocet, Percodan, Oxycodone, Oxy IR) Some common benzodiazepines include: Diazepam (Valium) Lorazepam (Ativan) Alprazolam (Xanax) Clonazepam (Klonopin) Oxazepam (Serax) All of these controlled substances are highly addictive and frequently abused. Misuse can and frequently does lead to addiction as well as overdose and . Medication should be stored in a locked cabinet or other secure storage unit. Do not store the medication in a motor vehicle. Short term supplies, 3 days or less, are prescribed because of the highly addictive nature of the medication. Any of the controlled substance medication NOT taken should be disposed of properly and NOT SAVED. The recommended method of disposing of unused medications is: Place the medicines in a sealable plastic bag. If the medicine is a solid, crush it or add water to dissolve it. Add something undesirable (cat litter, coffee grounds, etc.) Dispose of sealed bag in household trash Do not flush or pour unused medicines down a sink or drain. Controlled substances should not be shared, given away or sold. Because of the addictive nature and frequent abuse, these medications are sometimes stolen. These medications should be kept in a safe place where they cannot be stolen. Do not keep them in your car or purse. Lost or stolen prescriptions for controlled substances WILL NOT BE REFILLED in this emergency department, regardless of whether a police report was filed. Prescriptions: Hydrocod/Acet 5/325 mg [Mcallister 5/325mg tablet] 1 tab PO Q6HP PRN #10 tab PRN Reason: Pain Transmission Status: Sent to [facility] Amoxicillin/Potassium Clav [Augmentin 875-125 Tablet] 1 tab PO Q12H #20 tab Transmission Status: Pending to [facility] Referrals: Bipin Stahl MD [Primary Care Provider] - - Critical Care Critical Care Time: No Attestation: On 03/09/20, the high probability of a clinically significant, sudden or life threatening deterioration of the following system(s) required my full and direct attention, intervention and personal management. The time I documented below is in addition to time spent performing reported procedures but includes the following listed in this critical care notation. Medical Decision Making - Amador Inquiry Pt receiving controlled substance: Yes Amador was queried for this patient: Yes Reference #:: [id number] Risks and benefits of using a controlled substance: were discussed with pt by me Comment: 30 rxs. last rxs tramadol and gabapentin 02/26/20 Vital Signs: 03/09/20 13:23 03/09/20 13:58 Temperature 97.9 F Temperature Source Oral Pulse Rate [Left Radial] 73 93 H Respiratory Rate 19 14 Blood Pressure [Right Arm] 139/79 116/65 Blood Pressure Mean [Right Ar
[2020-03-09 13:58] VITALS: BP 116/65; PULSE 93; RESP 14; O2SAT 97
--- NOTE | 2020-03-09 14:41 | PC.NURSE ---
Addendum entered by Manda Vazquez RN 03/09/20 14:41: correction speaking to dr poole Original Note: speaking to dr haro
[2020-03-09 15:14] VITALS: BP 116/65; PULSE 77; RESP 16; TEMP 36.6; O2SAT 99
== END 2020-03-09 15:16 | disposition home or self-care (01) ==
PROVIDERS: Emergency Provider Emergency Medicine; PCP Emergency Medicine
DX: S68.616A Complete traumatic transphalangeal amputation of right little finger, initial encounter (principal); W54.0XXA Bitten by dog, initial encounter; Y92.017 Garden or yard in single-family (private) house as the place of occurrence of the external cause; E11.40 Type 2 diabetes mellitus with diabetic neuropathy, unspecified; Z79.84 Long term (current) use of oral hypoglycemic drugs; I25.10 Atherosclerotic heart disease of native coronary artery without angina pectoris; E78.5 Hyperlipidemia, unspecified; I10 Essential (primary) hypertension; K21.9 Gastro-esophageal reflux disease without esophagitis; Z23 Encounter for immunization; Z79.899 Other long term (current) drug therapy; G43.709 Chronic migraine without aura, not intractable, without status migrainosus
CPT/HCPCS: 73140; 90471; 90715; 99282

== ENCOUNTER 2020-03-09 20:45 | Emergency (ER) | payer MEDICARE, MEDICAID, SELFPAY ==
[2020-03-09 20:53] VITALS: BP 99/48; PULSE 70; RESP 16; TEMP 36.5; O2SAT 96; BMI 45.4
--- NOTE | 2020-03-09 21:29 | PC.NURSE ---
speaking with DR. Howell
--- NOTE | 2020-03-09 21:30 | PC.NURSE ---
speaking to dr bernard
--- NOTE | 2020-03-09 21:35 | HMH.EDRECH ---
ED Disposition Clinical Impression: Bite by animal Partial traumatic amputation of finger through phalanx Qualifiers: Encounter type: initial encounter Qualified Code(s): S68.629A - Partial traumatic transphalangeal amputation of unspecified finger, initial encounter Disposition: Home, Self-Care Condition on Discharge: Good Instructions: Animal Bites Additional Instructions: will redress and keep appt with ortho in am Referrals: Bipin Stahl MD [Primary Care Provider] - - Critical Care Critical Care Time: No Attestation: On 03/09/20, the high probability of a clinically significant, sudden or life threatening deterioration of the following system(s) required my full and direct attention, intervention and personal management. The time I documented below is in addition to time spent performing reported procedures but includes the following listed in this critical care notation. Medical Decision Making - Medical Records Medical records reviewed: Yes: I reviewed the patient's medical records. - Amador Inquiry Pt receiving controlled substance: No Vital Signs: 03/09/20 20:53 Temperature 97.7 F Temperature Source Oral Pulse Rate [Right Brachial] 70 Respiratory Rate 16 Blood Pressure [Right Arm] 99/48 L Blood Pressure Mean [Right Arm] 65 02 Sat by Pulse Oximetry 96 Oxygen Delivery Method Room Air - Physician Consults Physician Consulted: joana Reason -: Pt condition Recheck HPI - General Chief Complaint: Animal Bite Stated Complaint: AO 922 1300 bleeding Time Seen by Provider: 03/09/20 21:15 Mode of Arrival: Family Vehicle Source of Information: Patient, Medical Record Limitations: No Limitations Description of Symptoms (Recalled from ER Triage Doc. by RN): return for continued bleeding in right hand,5th digit; presented earlier for a dog bite, noted end of finger to be missing, copious amounts of bleeding noted in time with heartbeat. vss. emv 15. noted the digit to have cyanosis present. - History of Present Illness HPI narrative: persistent bleeding from injury site complaint: wound re-check Initial visit (ago): hour(s) Initial visit for: animal bite Returns today for: wound recheck Context: other (bleeding ) Associated symptoms: none - Related Data Home Medications Medication Instructions Recorded Confirmed Blood Sugar Diagnostic [Accu-Chek 0 1000units .ROUTE .MEDSUPPLY 07/14/18 02/25/20 Billie Plus test strp] Blood-Glucose Meter [Blood Glucose 0 1000units .ROUTE .MEDSUPPLY 07/14/18 02/25/20 Meter] Lancets 0 1000units .ROUTE .MEDSUPPLY 07/14/18 02/25/20 fexofenadine 180 mg tablet 180 mg PO DAILY tab 01/27/20 02/25/20 Previous Rx's Medication Instructions Recorded beclomethasone dipropionate 40 1 inh INHALATION BID #10.6 g 04/29/19 mcg/actuation HFA breath activated aerosol lisinopril 2.5 mg tablet 2.5 mg PO DAILY #90 tab 06/29/19 ferrous sulfate 142 mg (45 mg 142 mg PO DAILY #90 tab 06/30/19 iron) tablet,extended release cholecalciferol (vitamin D3) 25 1,000 unit PO DAILY 90 Days #90 cap 07/01/19 mcg (1,000 unit) capsule ketorolac 0.4 % eye drops 1 drp OPHTHALMIC BID #5 ml 07/29/19 fluoxetine 20 mg capsule See Rx Instructions .ROUTE 08/21/19 .COMPLEX #90 unspecified montelukast 10 mg tablet See Rx Instructions .ROUTE 08/24/19 .COMPLEX #90 unspecified fluoxetine 40 mg capsule 40 mg PO DAILY #90 cap 08/27/19 albuterol sulfate 90 mcg/actuation See Rx Instructions .ROUTE 09/17/19 aerosol inhaler .COMPLEX #8.5 unspecified fluticasone propionate 50 See Rx Instructions .ROUTE 11/11/19 mcg/actuation nasal .COMPLEX #9.9 unspecified spray,suspension ranolazine 500 mg tablet,extended 500 mg PO BID #180 tab 11/25/19 release,12 hr alendronate 70 mg tablet See Rx Instructions .ROUTE 12/04/19 .COMPLEX #12 unspecified sumatriptan succinate 100 mg tablet 100 mg PO Q2H PRN #9 tab 12/04/19 isosorbide mononitrate 30 mg See Rx Instructions .ROUTE
[2020-03-09 21:40] VITALS: BP 104/54; PULSE 74; RESP 18; TEMP 36.6; O2SAT 97
== END 2020-03-09 21:46 | disposition home or self-care (01) ==
PROVIDERS: Emergency Provider Emergency Medicine; PCP Emergency Medicine
DX: S61.451A Open bite of right hand, initial encounter (principal)
CPT/HCPCS: 73140; 90471; 90715; 99281; 99282

== ENCOUNTER → 2020-03-10 08:40 | Outpatient (CLI) | payer MEDICARE, MEDICAID, SELFPAY ==
[2020-03-10 08:43] LABS: MANUAL DIFFERENTIAL MANUAL DIFFERENTIAL (MANUAL DIFF)
[2020-03-10 08:56] LABS: Basophils # 0.1 K/mm3 (0-0.2); Basophils % 0.7 % (0.1-2.0); Eosinophils # 0.2 K/mm3 (0.0-0.4); Eosinophils % 2.5 % (0.1-12.0); Hematocrit 33.2 % (37.0-47.0); Hemoglobin 10.5 g/dL (12.2-16.2); Lymphocytes # 1.2 K/mm3 (0.7-4.5); Lymphocytes % 15.8 % (10-50); Mean Corpuscular HGB Conc 31.7 g/dL (31.8-35.4); Mean Corpuscular Hemoglobin 26.5 pg (27.0-31.2); Mean Corpuscular Volume 83.5 fl (81-99); Monocytes # 0.3 K/mm3 (0.1-1.0); Monocytes % 4.1 % (1.7-9.3); Neutrophils # 5.9 K/mm3 (1.8-7.8); Platelet Count 178 K/mm3 (142-424); Red Blood Count 3.98 M/mm3 (4.20-5.40); Red Cell Distribution Width 16.6 % (11.5-17.5); White Blood Count 7.6 K/mm3 (4.8-10.8)
[2020-03-10 09:04] LABS: Chloride 102 mmol/L (98-107); Potassium 4.6 mmoL/L (3.5-5.1); Sodium 138 mmol/L (136-145)
[2020-03-10 09:07] LABS: Alanine Aminotransferase 20 U/L (12-78); Albumin Level 3.4 g/dl (3.5-5.0); Albumin/Globulin Ratio 1.5 (1.1-1.8); Alkaline Phosphatase 111 U/L (38-126); Anion Gap 11.6 mEq/L (5-15); Aspartate Amino Transferase 20 U/L (14-36); Blood Urea Nitrogen 13 mg/dl (7-17); Carbon Dioxide 29 mmol/L (22.0-30.0); Estimated Glomerular Filt Rate 103 ml/min (>60); GFR (African American) 124 ML/MIN (>60); Globulin 2.3 g/dL (1.3-3.2); Glucose 131 mg/dl (74-100); Total Protein,Serum 5.7 g/dl (6.3-8.2)
[2020-03-10 09:08] LABS: Bilirubin,Total 0.1 mg/dl (0.2-1.3)
[2020-03-10 09:25] LABS: Coronavirus 19 IgG Antibody Negative (Negative); Coronavirus 19 IgM Antibody Negative (Negative); Eosinophils % 1 % (0-3); Lymphocytes % 17 % (10-50); Monocytes % 3 % (2-9); Neutrophils % 78 % (42-76); Platelet Estimate Normal; RBC Morphology Normal; Total Cells Counted 100
== END ==
PROVIDERS: Visit Provider Orthopaedic Surgery
DX: Z01.89 Encounter for other specified special examinations; S68.629A Partial traumatic transphalangeal amputation of unspecified finger, initial encounter; W54.0XXA Bitten by dog, initial encounter
CPT/HCPCS: 36415; 80053; 85007; 85014; 85018; 85048; 85049; 86328

== ENCOUNTER 2020-03-10 09:23 | Day surgery (SDC) | payer MEDICARE, MEDICAID, SELFPAY ==
[2020-03-10 11:21] VITALS: BP 105/59; PULSE 65; RESP 18; TEMP 36.2; O2SAT 96; BMI 38.9
[2020-03-10 11:43] LABS: POC Glucose,Bedside 101 (70-110)
--- NOTE | 2020-03-10 12:45 | XR_ITS ---
PROCEDURE: XR FINGER RT MIN 2V CLINICAL INDICATION: 5TH DIGIT AMPUTATION REVISION COMPARISON: No exams were available for comparison FINDINGS: Fluoroscopy time: 4 seconds. Images submitted during the revision of the distal phalangeal amputation available for review. IMPRESSION: Fluoro guided procedure Dictated by: Nate Sharma MD 03/10/2020 17:27 Nate Sharma MD in [place] 03/10/2020 17:27
--- NOTE | 2020-03-10 12:52 | P.PN_ITS ---
[facility] Anesthesia Checklist - Patient Identification Patient Identification: Arm Band, Verbal (Name & ) - Structural Data Admitted From: Direct Admit Planned Operative Procedure/s: Right 5th metacarpal revision of amputation Consent for Planned Operative Procedure(s) Verified: No Verified Documents: Surgical Consent, History and Physical - NPO Status Verified Time NPO: 00:00 - Chart Verification Results Verified: CBC, BMP, PT, PTT, INR - Additional verifications Fingerstick Blood Glucose: 101 Anesthesia Reactions: No Hx Blood Transfusions: No Blood Transfusion Reaction: No - Airway Assessment C-Spine Mobility Assessed: Yes (supple neck, TMD 3, MP 3) TMJ Mobility Assessed: Yes Dentition: Poor Dentition (chipped teeth) - Neurological Assessment Level of Consciousness: Awake, Alert, Appropriate, Follows Commands Hx Seizures: No Numbness or tingling in extremities: No - Anesthesia Plan Anesthesia Risk discussed: Yes Anesthesia Plan: Verified ASA Class: III Anesthesia Type: MAC [facility] History I have reviewed the patient's past medical history: Yes Medical History: Reports:: Anxiety, Asthma, Coronary Artery Disease, Depression, Diabetes Mellitus Type 2, Gastroesophageal Reflux Disease(GERD), Hyperlipidemia, Hypertension, Migraine Denies:: Cancer, Diabetes Mellitus Type 1, Internal Pacemaker, MRSA, Seizures *Have you ever received a pneumonia vaccine?: No *Have you received a flu vaccine this season?: No Other Medical History: Reports: Arthritis, Other. Denies: Blood Transfusion Reaction, Acquired Immunodeficiency Syndrome (AIDS) Comment:: Morbid obesity Anesthesia experience/problems:: No prior complications. Consented, plan discussed and verified. Laterality Cases: Bilateral: Arthroscopy Knee, Other Other Surgeries: Yes: Cardiac Catheterization, Cholecystectomy, Colonoscopy, Coronary Stent, Dilation and Curettage, EGD, Hysterectomy-Total, Hysterectomy-Partial, Tubal Ligation, Other. No: Pacemaker Amputation: No Fractures: Yes - *Social History Last grade of school completed: Advanced degree Smoking Status: Never smoker # Packs/Day (cigarettes): 1 Alcohol Intake: never Substance Use Type: denies use *Occupational Status:: disabled Housing: house Household Members: spouse *Travel in the last 8 weeks: None - Psychiatric History Pschychiatric History:: Reports:: Anxiety, Depression Family Hx:: Cancer, Diabetes, Heart Attack
[2020-03-10 13:01] VITALS: BP 124/69; PULSE 67; RESP 18; TEMP 36.2; O2SAT 93
[2020-03-10 13:11] VITALS: BP 95/55; PULSE 65; RESP 18; O2SAT 97
[2020-03-10 13:21] VITALS: BP 98/67; PULSE 86; RESP 18; O2SAT 94
[2020-03-10 13:33] VITALS: BP 104/50; PULSE 73; RESP 18; O2SAT 96
--- NOTE | 2020-03-10 13:40 | HMH.OPNOTE ---
Date of procedure: 03/10/20 Pre-op Diagnosis:: 1) dog bite 2) traumatic amputation, R small fingertip Post-op Diagnosis:: 1) dog bite 2) traumatic amputation, R small fingertip Procedure performed:: revision amputation R small finger Surgeon:: Jeannette Howell MD Catering Server(s):: Pippa Avery BONE GRINDER:: Rui Hannahferty Anesthesia: MAC, regional (digital nerve block) Estimated blood loss (mL): 5 Clinical Note:: 59yo F presents for initial orthopaedic evaluation of an injury to the R small finger sustained yesterday. She was trying to break up a fight between her dogs and one of them bit off the tip of her R small finger. The tip was not recovered and she does not know what happened to it. She presented to the ED, where exam/XR revealed a distal phalanx fracture and partial fingertip amputation with exposed bone. The finger was irrigated and clean dressings applied. She was discharged on oral Augmentin. Last tetanus immunization unknown; booster given in ED. She reports a history of diabetes, HTN, CAD, HL and asthma. She take aspirin and plavix at baseline but stopped them yesterday after the injuyr. She says she has chronic numbness of her right ring and small fingers, has a history of neuropathy, and therefore she is not currently in much pain. She is left hand dominant. She has been NPO after midnight last night. With exposed bone, I recommend surgical I&D with revision amputation. I suspect with little distal phalanx bone remaining, the DIP may need to be disarticulated. I discussed the procedure with the patient, and explained that I will try to keep as much bone as possible, but the goal is to close the fingertip so there is not exposed bone. Being diabetic, I would prefer not to let this heal secondarily with exposed bone. I discussed the risks of surgery with the patient, including bleeding, infection, wound healing complications, need for further revision amputation, and post-operative phantom pain and cold intolerance. The patient vocalized understanding and informed consent was obtained. Operative findings:: R small fingertip amputation with exposed soft tissue and bone; distal fingertip wound 1.5cm without gross contamination Operative note:: The patient was identified in preoperative holding and right small finger signed by myself. Surgical consent reviewed with the patient. She was then taken to the OR where she was placed supine on the operative table with the right upper extremity on a hand table. MAC was administered by anesthesia, and IV ancef started. After thoroughly cleansing the right hand and swabbing the base of the small finger with chlorhexidine swabs, a digital nerve block was performed using 10 cc of a 50:50 mix of 0.5% Marcaine and 1% lidocaine, both without epinephrine. While the digital block set up, the right hand was scrubbed with a gentle Hibiclens prep and the right upper extremity prepped and draped in the usual sterile fashion. Timeout was performed, identifying the correct patient, correct procedure, and correct site. I began the procedure by first applying a small finger tourniquet with a mars drain. Once the finger tourniquet was up, I tested the patient's sensation at the tip of her finger and determined that the digital nerve block was successful; the finger was completely anesthetized. The tip of the finger was dried with Ray-Sergio and wound inspection performed. The traumatic amputation was very clean but oblique and ragged in nature. The tissue was slightly crushed with a purple discoloration at the tip. It measured around 1.5cm in width. Distal phalanx bone was exposed; only a small proximal stump of the bone remained. I was unable to close the finger in its present state, so the DIP joint was disarticulated and the distal phalanx removed entirely. The distal wound margins were oblique, ragged and dusky and I did not feel like it would heal well, nor would the fingertip entirely close yet. Using a 15 blade, I debrided
--- NOTE | 2020-03-10 13:45 | SUR.PHASEII ---
PT WAS BEING TAKEN OUT TO CAR FOR DISCHARGE, PT NOTICED HER BANDAGE WAS COMPLETELY OFF OF HER SURGICAL FINGER. REURNED TO POST OP, REMOVED OLD DRESSING THAT WAS HANGING THERE. APPLIED STERILE 2X2'S AND WRAPPED WITH STERILE GAUZE THEN REWRAPPED WITH SMALL ОЛЕГ WRAP. PT TOLERATED WELL, WITH NO C/O PAIN.
[2020-03-10 14:12] VITALS: TEMP 43
== END 2020-03-10 13:37 | disposition home or self-care (01) ==
LOC: OR 09:26
PROVIDERS: PCP Emergency Medicine; Visit Provider Orthopaedic Surgery
DX: S68.126A Partial traumatic metacarpophalangeal amputation of right little finger, initial encounter (principal); W54.0XXA Bitten by dog, initial encounter; Y92.017 Garden or yard in single-family (private) house as the place of occurrence of the external cause; E11.9 Type 2 diabetes mellitus without complications; I10 Essential (primary) hypertension; I25.10 Atherosclerotic heart disease of native coronary artery without angina pectoris
CPT/HCPCS: 26235; 36415; 73140; 76000; 80053; 82962; 85007; 85014; 85018; 85048; 85049; 86328; 96374

== ENCOUNTER → 2020-03-28 09:39 | Outpatient (CLI) | payer MEDICARE, MEDICAID, SELFPAY ==
[2020-03-28 12:03] LABS: Coronavirus 19 IgG Antibody Negative (Negative); Coronavirus 19 IgM Antibody Negative (Negative)
== END ==
PROVIDERS: Visit Provider Specialist
DX: Z01.89 Encounter for other specified special examinations (principal); G47.36 Sleep related hypoventilation in conditions classified elsewhere; R40.0 Somnolence; R06.83 Snoring; E66.9 Obesity, unspecified
CPT/HCPCS: 36415; 86328

== ENCOUNTER → 2020-03-28 20:00 | Outpatient (CLI) | payer MEDICARE, MEDICAID, SELFPAY | PROVIDERS: PCP Emergency Medicine; Visit Provider Specialist | DX: G47.36 Sleep related hypoventilation in conditions classified elsewhere (principal); R06.83 Snoring; G47.10 Hypersomnia, unspecified; E66.9 Obesity, unspecified | CPT/HCPCS: 95810 ==

== ENCOUNTER → 2020-03-31 08:49 | Outpatient (CLI) | payer MEDICARE, MEDICAID, SELFPAY ==
--- NOTE | 2020-03-31 08:53 | MM_ITS ---
PROCEDURE: MM DIG SCREENING MAMM BI W/CAD Referring Doctor: Bipin Stahl Patient Age:59Y CLINICAL INDICATION: SCREENING no hormones no new complaints. Family history: Maternal grandmother and maternal aunt and paternal cousin with breast cancer COMPARISON: MG SCBI MM Dig screening mamm BI w/CAD from 03/28/2018 MG DXLT MM Dig mamm DX unilat LT CAD from 09/30/2018 MG MM DIG SCREENING MAMM BI W/CAD from 04/14/2019 TECHNIQUE: Standard CC and MLO images were obtained. R2 CAD reviewed. Bilateral digital breast tomosynthesis included. Additional CC and MLO nipple profile views included for the anterior breast FINDINGS: Large volume low-density breast with diffuse fatty replacement.. No no new dominant nor suspicious mass. No suspicious calcifications in either breast Right breast: No significant findings. A few tiny low-density oil cyst at the anterior right breast developing and can be followed Left breast: No new findings of significance Stable intramammary lymph node lateral left breast IMPRESSION: Basically stable bilateral mammogram; with no new areas of significant concern Generous volume low-density breast with diffuse fatty replacement/fatty change. Bilateral follow-up 1 year recommended BI-RAD Category: 2 Benign Finding(s) FOLLOW-UP: 1YR 1 Year Follow-up (A letter has been sent to the patient regarding results of the study.) Dictated by: Ancelmo Terrell MD 04/01/2020 12:48 Ancelmo Terrell MD in [place] 04/01/2020 12:48
== END ==
PROVIDERS: PCP Emergency Medicine; Visit Provider Emergency Medicine
DX: Z12.31 Encounter for screening mammogram for malignant neoplasm of breast (principal)
CPT/HCPCS: 77063; 77067

== ENCOUNTER 2020-04-06 08:58 | Outpatient (RCR) | payer MEDICARE, MEDICAID, SELFPAY ==
--- NOTE | 2020-04-06 10:38 | HMH.PTOPWND ---
Rehab Outpt Wound Evaluation Rehab OP Wound Evaluation Start: 04/06/20 10:31 Freq: Status: Active Protocol: Document 04/06/20 10:31 GREGG (Rec: 04/06/20 10:37 PHOBENTLEY [id number]) Electronically Signed By Jono Banuelos, PT 04/06/20 10:31 Subjective/History History History Pt is 59 yowf who presents with R 5th distal finger wound after dog bite ~ 3 wks ago. She reports, My dogs were fighting and when I broke them up I realized one of them had bitten the tip of my finger off. She is currently undergoing OT treatment for ROM and strengthening, but requires further wound care. She reports PMH of HTN, DM-II, Asthma, CAD with stents, and OA. Subjective Subjective Currently she reports no c/o pain, more numbness. She does report intermittent phantom limp pains. Wound Eval Wound Right Distal Finger - 5th Digit Wound Type Amputation Is This a Chronic Wound No Wound Length (cm) 0.5 Wound Width (cm) 0.7 Wound Bed Appearance Beefy Red,Yellow Percentage Granulated (%) 50 Percentage of Slough (%) 50 Wound Margins Description Well Defined Surrounding Tissue Appearance [place] Edema Type Non-Pitting Edema Degree 1+ Query Text:1+ Trace, Barely Detectable, Rebound 15-30 seconds 2+ Moderate, Slight Indentation, Rebound 10-20 seconds 3+ Deep, Deeper Indentation, Rebound > 30 seconds 4+ Very Deep, Rebound > 60 seconds Drainage Description Serous Drainage Amount Small Drainage Odor No Odor Primary Dressing Composite Comment optifoam gentle border lite Wound Secondary Dressing Type Adhering Gauze Roll Wound Debridement Method Sharps,Forceps,Gauze Wound Debridement Amount of Tissue Moderate Removed Wound Debridement Result Healthy Tissue Revealed Dressing Change Patient Tolerance Tolerated Well Wound Problems/Impairments Impairments Problems/Impairmments Increased Edema,Wound Care Needs,Subjective C/O Pain, Impaired Self Care/Self Management Prognosis Rehab Potential Go
== END 2020-04-06 08:59 | disposition home or self-care (01) ==
LOC: PT 08:58
PROVIDERS: PCP Emergency Medicine; Visit Provider Orthopaedic Surgery
DX: Z89.021 Acquired absence of right finger(s) (principal)
CPT/HCPCS: 97162

== ENCOUNTER → 2020-04-08 11:38 | Outpatient (CLI) | payer MEDICARE, MEDICAID, SELFPAY | PROVIDERS: PCP Emergency Medicine; Visit Provider Specialist | DX: G47.33 Obstructive sleep apnea (adult) (pediatric) (principal); G47.34 Idiopathic sleep related nonobstructive alveolar hypoventilation; G47.00 Insomnia, unspecified | CPT/HCPCS: 94060; 94618; 94726; 94729 ==

== ENCOUNTER 2020-04-11 09:00 | Outpatient (RCR) | payer MEDICARE, MEDICAID, SELFPAY ==
--- NOTE | 2020-03-22 08:51 | HMH.OTOPEV ---
OT Inpatient Evaluation Rehab OT Outpatient Eval Start: 03/22/20 08:29 Freq: Status: Active Protocol: Document 03/22/20 08:30 RMARSHALL (Rec: 03/22/20 08:50 RMARSHALL [id number]) Electronically Signed By Lamont Murillo OT 03/22/20 08:30 Outpatient Therapy Subjective History Subjective History Pt is a 59 year old female who presents to therapy for initial evaluation to right small finger. On 03/09/20 pt tried to break up her two dogs while they were fighting resulting in a bit to the right small finger. On pt had a revision amputation below DIP joint to right small finger. Pt demonstrates with slight decreased AROM at PIP joint as well as decreased strength ( finger) and apparel cutter strength. Pt had her stitches removed yesterday and her incision appears to be slightly red and crusty with yellow slough. Wound therapist observed finger and reports he feels she needs a wound therapy evaluation. OT notified doctor. Chief Complaint Pain,Weakness,Decreased Sales Consultant Strength Symptom Type Ache,Throb,Sharp,Dull Symptoms Relieved By Rest/Positioning Symptoms Aggravated By Physical Activity,Lifting Prior Functional Limitations None Current Functional Limitations Reaching,Lifting,Housework, Dressing Symptom Description Intermittent Level of pain today (0-10) 4 Pain scale - at its best (0-10) 0 Pain scale - at its worst (0-10) 10 Wrist/Hand Eval Finger Range of Motion Right Little Finger Finger Metacarpophalangeal Flexion 85 degrees Active Range of Motion (degrees) Finger Metacarpophalangeal Extension 0 degrees Active Range of Motion (degrees) Finger Proximal Interphalangeal Flexion 30 degrees Active Range (degrees) Finger Proximal Interphalangeal 0 degrees Extension Active Range (degrees) Hand/Finger Manual Muscle testing Finger Flexion Strength Grade 3- Fair- Finger Extension Strength Grade 3- Fair- Finger Abduction Strength Grade 3- Fair- Finger Adduction Strength Grade 3- Fair- Sales Consultant/Pinch Strength Right Sales Consultant Strength Measurement (lbs) 35 Left
== END 2020-04-11 09:05 | disposition home or self-care (01) ==
LOC: OT 09:00
PROVIDERS: PCP Emergency Medicine; Visit Provider Orthopaedic Surgery
DX: S68.626D Partial traumatic transphalangeal amputation of right little finger, subsequent encounter (principal)
CPT/HCPCS: 97010; 97110; 97140; 97165

== ENCOUNTER → 2020-05-20 10:34 | Outpatient (CLI) | payer MEDICARE, MEDICAID, SELFPAY ==
[2020-05-20 11:31] LABS: Chloride 96 mmol/L (98-107); Sodium 133 mmol/L (136-145)
[2020-05-20 11:32] LABS: Potassium 4.1 mmoL/L (3.5-5.1)
[2020-05-20 11:34] LABS: Blood Urea Nitrogen 11 mg/dl (7-17); Estimated Glomerular Filt Rate 86 ml/min (>60); GFR (African American) 104 ML/MIN (>60)
[2020-05-20 11:35] LABS: Anion Gap 11.1 mEq/L (5-15); Carbon Dioxide 30 mmol/L (22.0-30.0); Glucose 100 mg/dl (74-100)
[2020-05-20 11:44] LABS: NT Pro Brain Natriuretic Pep. 23.6 pg/mL (0-125)
== END ==
PROVIDERS: Visit Provider Urology
DX: E66.9 Obesity, unspecified (principal); E78.5 Hyperlipidemia, unspecified; I11.9 Hypertensive heart disease without heart failure; I25.10 Atherosclerotic heart disease of native coronary artery without angina pectoris; R06.00 Dyspnea, unspecified; R60.9 Edema, unspecified
CPT/HCPCS: 36415; 80048; 83880

== ENCOUNTER → 2020-06-01 11:40 | Outpatient (CLI) | payer MEDICARE, MEDICAID, SELFPAY ==
[2020-06-01 11:52] LABS: ABG Base Excess 0.7 mmol/L (-2.4-2.3); ABG HCO3 24.9 mmhg (22.0-26.0); ABG Oxygen Saturation 95 % (90-100); ABG PCO2 37.8 mmhg (35.0-45.0); ABG PH 7.44 mmol/L (7.35-7.45); ABG PO2 81.3 mmhg (80-100)
--- NOTE | 2020-06-01 11:54 | XR_ITS ---
PROCEDURE: XR CHEST 2V CLINICAL HISTORY: hypoxemia COMPARISON: No exams were available for comparison FINDINGS: The cardiomediastinal silhouette and pulmonary vascularity are within normal limits. The lungs are clear without infiltrates, suspicious nodules, or pleural effusions. There is minimal discoid atelectasis or postinflammatory scarring in both perihilar regions. There are calcified hilar nodes. There are old healed fractures of the left 4th, 5th, 6th and 7th ribs posteriorly No acute bony abnormalities. IMPRESSION: Minimal atelectasis versus scarring in both perihilar regions otherwise negative chest. Dictated by: Dr. Junaid Marcelo MD 06/01/2020 13:08 Dr. Junaid Marcelo MD in [place] 06/01/2020 13:08
[2020-06-01 21:39] LABS: Allen's Test Non Applicable; Oxygen room air %
== END ==
PROVIDERS: Visit Provider Internal Medicine Pulmonary Disease
DX: G47.34 Idiopathic sleep related nonobstructive alveolar hypoventilation (principal)
CPT/HCPCS: 71046; 82803

== ENCOUNTER → 2020-08-04 15:12 | Outpatient (CLI) | payer MEDICARE, OTHER, SELFPAY ==
[2020-08-09 01:30] LABS: D001-IgE D pteronyssinus <0.10 kU/L (Class 0); D002-IgE D farinae <0.10 kU/L (Class 0); E001-IgE Cat Dander <0.10 kU/L (Class 0); E005-IgE Dog Dander <0.10 kU/L (Class 0); G002-IgE Bermuda Grass <0.10 kU/L (Class 0); G006-IgE Timothy Grass <0.10 kU/L (Class 0); I006-IgE Cockroach, German <0.10 kU/L (Class 0); Immunoglobulin E, Total 17 IU/mL (6-495); M001-IgE Penicillium chrysogen <0.10 kU/L (Class 0); M002-IgE Cladosporium herbarum <0.10 kU/L (Class 0); M003-IgE Aspergillus fumigatus <0.10 kU/L (Class 0); M006-IgE Alternaria alternata <0.10 kU/L (Class 0); T001-IgE Maple/Box Elder <0.10 kU/L (Class 0); T006-IgE Cedar, Mountain <0.10 kU/L (Class 0); T007-IgE Oak, White <0.10 kU/L (Class 0); T008-IgE Elm, American <0.10 kU/L (Class 0); T010-IgE Walnut <0.10 kU/L (Class 0); T011-IgE Maple Leaf Sycamore <0.10 kU/L (Class 0); T014-IgE Cottonwood <0.10 kU/L (Class 0); T015-IgE Ash, White <0.10 kU/L (Class 0); T022-IgE Pecan, Hickory <0.10 kU/L (Class 0); T070-IgE White Mulberry <0.10 kU/L (Class 0); W001-IgE Ragweed, Short <0.10 kU/L (Class 0); W011-IgE Thistle, Russian <0.10 kU/L (Class 0); W014-IgE Pigweed, Common <0.10 kU/L (Class 0); W016-IgE Rough Marshelder <0.10 kU/L (Class 0)
[2020-08-09 13:33] LABS: E072-IgE Mouse Urine <0.10 kU/L (Class 0)
== END ==
PROVIDERS: Visit Provider Internal Medicine Pulmonary Disease
DX: J45.909 Unspecified asthma, uncomplicated (principal)
CPT/HCPCS: 36415; 82785; 86003

== ENCOUNTER → 2020-08-10 08:56 | Outpatient (CLI) | payer MEDICARE, OTHER, SELFPAY ==
--- NOTE | 2020-08-10 08:57 | MR_ITS ---
PROCEDURE: MR LUMBAR SPINE WO CON CLINICAL INDICATION: back pain Pt c/o with left numbness, tingling, and pain. COMPARISON: MR SPLUMBWO MR lumbar spine wo con from 04/04/2018 TECHNIQUE: Standard multiplanar multiecho sequences are performed without contrast. 3-D MIP and myelographic images are also rendered and reviewed FINDINGS: The spinal cord ends at the L1 level. L1-L2: Unremarkable. L2-L3: Unremarkable. L3-L4: Unremarkable. L4-5: There is mild facet and ligamentum hypertrophy with mild bilateral foraminal narrowing with a small amount fluid in the facet joints on both sides. This had a similar appearance on the previous exam. L5-S1: Unremarkable. No extruded herniated disc or canal stenosis. IMPRESSION: 1. No disc herniation or canal stenosis. 2. Mild facet ligamentum hypertrophy with minimal bilateral foraminal narrowing and a small amount of fluid in the facet joints at L4-5 similar to the previous exam Dictated by: Nate Sharma MD 08/11/2020 10:21 Nate Sahrma MD in [place] 08/11/2020 10:21
--- NOTE | 2020-08-10 09:50 | US_ITS ---
PROCEDURE: US SPINAL CANAL CONTENT CLINICAL INDICATION: lipoma on back palpable abnormality along the back COMPARISON: MR MR LUMBAR SPINE WO CON from 08/10/2020 FINDINGS: Ultrasound is performed of the palpable abnormality in the mid back region. There is a 4 x 1.7 by 3 cm area of homogeneous echogenicity isoechoic in nature consistent with a lipoma. No abnormal fluid collections or other significant anomalies. IMPRESSION: Palpable abnormality in the mid back region corresponds to a lipoma. Dictated by: Nate Sharma MD 08/10/2020 18:13 Nate Sharma MD in [place] 08/10/2020 18:13
== END ==
PROVIDERS: PCP Emergency Medicine; Visit Provider Emergency Medicine
DX: M54.9 Dorsalgia, unspecified (principal); D17.1 Benign lipomatous neoplasm of skin and subcutaneous tissue of trunk; M54.5 Low back pain
CPT/HCPCS: 72148; 76376; 76800

== ENCOUNTER → 2020-08-16 14:27 | Outpatient (CLI) | payer MEDICARE, OTHER, SELFPAY ==
--- NOTE | 2020-08-16 14:29 | MR_ITS ---
PROCEDURE: MR HEAD/BRAIN WO CON CLINICAL INDICATION: eval for ELECTROLESS PLATER abnormality Migraine headache xyrs, but has gotten worse x3ntnari. No injury. Dizziness and blurred vision during headaches. COMPARISON: No exams were available for comparison TECHNIQUE: Routine multiplanar multi echo sequences are performed without gadolinium enhancement. FINDINGS: No midline shift, mass effect, intracranial hemorrhage, or hydrocephalus. No evidence of acute infarction. The cerebellopontine angles, cerebellum and brainstem have an unremarkable appearance. The pituitary, optic chiasm, corpus callosum, and craniocervical junction have an unremarkable appearance. No mastoid effusion or sinus air-fluid level. There are scattered periventricular and subcortical T2 white matter hyperintensities nonspecific and may be due to ischemic gliotic foci from microvascular disease versus migraine headache. There is mild generalized atrophy. Craniocervical junction has an unremarkable appearance. IMPRESSION: 1. No acute intracranial findings. 2. Scattered periventricular and subcortical small T2 white matter hyperintensities. This may reflect changes from ischemic gliotic microvascular disease or migraine headache. Demyelinating process is felt to be less likely. Dictated by: Nate Sharma MD 08/17/2020 13:21 Nate Sharma MD in [place] 08/17/2020 13:21
== END ==
PROVIDERS: PCP Emergency Medicine; Visit Provider Specialist
DX: E11.9 Type 2 diabetes mellitus without complications (principal); G43.019 Migraine without aura, intractable, without status migrainosus; G47.19 Other hypersomnia; G47.34 Idiopathic sleep related nonobstructive alveolar hypoventilation; I25.118 Atherosclerotic heart disease of native coronary artery with other forms of angina pectoris; R20.0 Anesthesia of skin; R20.2 Paresthesia of skin; R25.1 Tremor, unspecified; Z68.41 Body mass index [BMI] 40.0-44.9, adult; Z95.5 Presence of coronary angioplasty implant and graft; Z79.84 Long term (current) use of oral hypoglycemic drugs
CPT/HCPCS: 70551

== ENCOUNTER → 2020-08-23 12:58 | Outpatient (CLI) | payer MEDICARE, OTHER, SELFPAY | PROVIDERS: PCP Emergency Medicine; Visit Provider Internal Medicine Pulmonary Disease | DX: R09.02 Hypoxemia (principal) | CPT/HCPCS: 94762 ==

== ENCOUNTER → 2020-08-27 10:37 | Outpatient (CLI) | payer MEDICARE, OTHER, SELFPAY ==
[2020-08-27 12:54] LABS: Alanine Aminotransferase 38 U/L (12-78); Albumin Level 4.5 g/dl (3.5-5.0); Albumin/Globulin Ratio 1.7 (1.1-1.8); Alkaline Phosphatase 145 U/L (38-126); Anion Gap 15.2 mEq/L (5-15); Aspartate Amino Transferase 34 U/L (14-36); Bilirubin,Total 0.3 mg/dl (0.2-1.3); Blood Urea Nitrogen 13 mg/dl (7-17); Calcium 9.5 mg/dl (8.4-10.2); Carbon Dioxide 24 mmol/L (22.0-30.0); Chloride 103 mmol/L (98-107); Estimated Glomerular Filt Rate 86 ml/min (>60); GFR (African American) 104 ML/MIN (>60); Globulin 2.7 g/dL (1.3-3.2); Glucose 96 mg/dl (74-100); Potassium 4.2 mmoL/L (3.5-5.1); Sodium 138 mmol/L (136-145); Total Protein,Serum 7.2 g/dl (6.3-8.2)
[2020-08-27 12:56] LABS: Basophils % 0.4 % (0.1-2.0); Eosinophils # 0.1 K/mm3 (0.0-0.4); Eosinophils % 1.2 % (0.1-12.0); Hematocrit 39.9 % (37.0-47.0); Hemoglobin 12.4 g/dL (12.2-16.2); Lymphocytes # 1.5 K/mm3 (0.7-4.5); Lymphocytes % 17.4 % (10-50); Mean Corpuscular Hemoglobin 25.9 pg (27.0-31.2); Mean Corpuscular Volume 83.6 fl (81-99); Mean Platelet Volume 8.8 fl (7.4-10.4); Monocytes # 0.5 K/mm3 (0.1-1.0); Monocytes % 5.7 % (1.7-9.3); Neutrophils # 6.3 K/mm3 (1.8-7.8); Neutrophils % 75.3 % (37.0-80.0); Platelet Count 209 K/mm3 (142-424); Red Blood Count 4.77 M/mm3 (4.20-5.40); White Blood Count 8.3 K/mm3 (4.8-10.8)
[2020-08-27 13:24] LABS: Thyroid Stimulating Hormone 0.18 uIU/mL (0.465-4.68)
[2020-08-27 13:37] LABS: Hemoglobin A1C 6.6 % (4.0-6.0)
[2020-08-27 14:01] LABS: Folate > 20.00 ng/mL
[2020-08-28 10:31] LABS: Ceruloplasmin 32.3 mg/dL (19.0-39.0)
== END ==
PROVIDERS: Visit Provider Specialist
DX: E11.9 Type 2 diabetes mellitus without complications (principal); G43.019 Migraine without aura, intractable, without status migrainosus; G47.19 Other hypersomnia; G47.34 Idiopathic sleep related nonobstructive alveolar hypoventilation; I25.118 Atherosclerotic heart disease of native coronary artery with other forms of angina pectoris; R20.0 Anesthesia of skin; R20.2 Paresthesia of skin; R25.1 Tremor, unspecified; R60.9 Edema, unspecified; Z68.41 Body mass index [BMI] 40.0-44.9, adult; Z95.5 Presence of coronary angioplasty implant and graft; Z96.659 Presence of unspecified artificial knee joint
CPT/HCPCS: 36415; 80053; 82390; 82746; 83036; 84443; 85025

== ENCOUNTER → 2020-08-31 17:05 | Outpatient (CLI) | payer MEDICARE, OTHER, SELFPAY ==
[2020-08-31 18:25] LABS: Phencyclidine Screen,Urine Negative ng/ml (<25)
[2020-08-31 18:26] LABS: Amphetamine/Metha Screen,Urine Negative ng/ml (<1000)
[2020-08-31 18:27] LABS: Barbiturates Screen,Urine Positive ng/ml (<200); Opiate Screen,Urine Positive ng/ml (<300)
[2020-08-31 18:28] LABS: Benzodiazepines Screen,Urine Negative ng/ml (<200)
[2020-08-31 18:29] LABS: Cannabinoid Screen,Urine Negative ng/ml (<50)
[2020-08-31 18:35] LABS: Cocaine Screen,Urine Negative ng/ml (<300)
[2020-08-31 18:36] LABS: Methadone Screen,Urine Negative ng/ml (<300)
[2020-08-31 18:37] LABS: Creatinine,Urine Random 67 mg/dL (Not Estab.); Microalbumin < 6.000 mg/L (0-16.7)
== END ==
PROVIDERS: Visit Provider Emergency Medicine
DX: E11.9 Type 2 diabetes mellitus without complications (principal); G89.4 Chronic pain syndrome; Z79.84 Long term (current) use of oral hypoglycemic drugs
CPT/HCPCS: 80305; 82043; 82570

== ENCOUNTER 2020-09-03 15:19 | Emergency (ER) | payer MEDICARE, OTHER, SELFPAY ==
[2020-09-03 15:30] VITALS: BP 130/73; PULSE 78; RESP 18; TEMP 36.6; O2SAT 96; BMI 41.6
--- NOTE | 2020-09-03 15:50 | HMH.EDUTC ---
[facility] [place] Disposition Clinical Impression: Sinusitis Qualifiers: Sinusitis location: unspecified location Chronicity: unspecified Qualified Code(s): J32.9 - Chronic sinusitis, unspecified Asthma Qualifiers: Asthma severity: unspecified severity Asthma persistence: unspecified Asthma complication type: unspecified Qualified Code(s): J45.909 - Unspecified asthma, uncomplicated Disposition: Home, Self-Care Condition on Discharge: Good Instructions: Sinusitis, Acute Bronchitis, Asthma -- Adult, DI for Sinusitis Additional Instructions: ? Start antibiotic today. Be sure to complete entire prescription even if feeling better ? Monitor temp. Tylenol every 4 hours as needed and / or ibuprofen every 6 hours as needed ( As long as your primary care physician has told you that it ok to take both. For fever/aches/pains ER if no less than 101 despite Tylenol or Motrin ? Humidifier/vaporizer or hot steamy shower ? Inhaler every 4-6 hours as needed like we discussed. If unsure how to use it, ask pharmacist to demonstrate how. Should help open airways and improve cough, wheezing, and shortness of breath ? Mucinex during the day for your cough and cough suppressant only at night. Be sure to drink lots of water. Insurance may not cover a prescriptions for mucinex. Might be cheaper to get 400mg tablets and take 2 tablet in the morning, mid-day and evening with lots of water. Follow up IMMEDIATELY for new or worsening of symptoms OR no noticeable improvement over the next 48-72 hours. 911 immediately for any life threatening symptoms such as chest pain or difficulty breathing Prescriptions: Azithromycin [Z-Parag 250mg Tab] 250 mg PO DIRECTED #6 tab Prescription Printed Referrals: Bipin Stahl MD [Primary Care Provider] - As needed Time of Disposition: 16:31 Medical Decision Making - [place] Inquiry Pt receiving controlled substance: No [place] was queried for this patient: No Vital Signs: 09/03/20 15:30 09/03/20 16:18 Temperature 97.8 F 97.8 F Temperature Source Oral Pulse Rate 78 Pulse Rate [Right Brachial] 78 Respiratory Rate 18 18 Blood Pressure 130/73 Blood Pressure [Right Arm] 130/73 Blood Pressure Mean [Right Arm] 92 Blood Pressure Source [Right Arm] Automatic Cuff Blood Pressure Position [Right Arm] Sitting 02 Sat by Pulse Oximetry 96 Oxygen Delivery Method Room Air Orders (Tests/Meds): ED MEDICATIONS Discontinued Medications Generic Name Dose Route Start Last Admin Trade Name Chris PRN Reason Stop Dose Admin Albuterol/Ipratropium 3 ml 09/03/20 15:59 09/03/20 16:15 Albuterol/Ipratropium 3 Ml Neb IH 09/03/20 16:00 3 ml ONCE ONE Administration Methylprednisolone Sodium Succinate 125 mg 09/03/20 16:00 09/03/20 16:15 Methylprednisolone Sod Succ 125mg Vial IM 09/03/20 16:01 125 mg ONCE ONE Administration Medical Decision Narrative: Medication discussed with pharmacy, patient reports that she has taken a DuoNeb, SoluMedrol and azithromycin in the past without complications or reactions After Duo Neb no wheezing noted [facility] [place] HPI - General Stated complaint: cough Time Seen by Provider: 09/03/20 15:50 Mode of Arrival: Ambulatory Source of Information: Patient Limitations: No Limitations Description of Symptoms (Recalled from Triage Doc. by RN): PATIENT C/O COUGH AND WHEEZING SINCE YESTERDAY HEENT Symptoms (Recalled from RN notes): No Resp Symptoms (Recalled from RN notes): Yes Skin Symptoms (Recalled from RN notes): No MS Symptoms (Recalled from RN notes): No Functional Status (Recalled from RN notes): WNL - History of Present Illness Provider Complaint: Patient state that she has a history of asthma States that she has been having some sinus pain and pressure along with cough for over a week and yesterday she started having some wheezing State that she feels like she has a sinus infection and it is making her asthma act up Denies SOA - Related Data Home Medications M
[2020-09-03 16:18] VITALS: BP 130/73; PULSE 78; RESP 18; TEMP 36.6; O2SAT 96
== END 2020-09-03 16:36 | disposition home or self-care (01) ==
PROVIDERS: Emergency Provider Nurse Practitioner; PCP Emergency Medicine
DX: J32.9 Chronic sinusitis, unspecified (principal); J45.909 Unspecified asthma, uncomplicated; I10 Essential (primary) hypertension; E78.5 Hyperlipidemia, unspecified; E11.9 Type 2 diabetes mellitus without complications; F41.8 Other specified anxiety disorders; I25.10 Atherosclerotic heart disease of native coronary artery without angina pectoris; K21.9 Gastro-esophageal reflux disease without esophagitis; Z79.899 Other long term (current) drug therapy
CPT/HCPCS: G0463; 96372; 99202

== ENCOUNTER → 2020-09-15 10:16 | Outpatient (CLI) | payer MEDICARE, OTHER, SELFPAY ==
--- NOTE | 2020-09-15 10:21 | XR_ITS ---
PROCEDURE: XR CHEST 2V CLINICAL HISTORY: PNM COMPARISON: CR XR CHEST 2V from 06/01/2020 FINDINGS: The cardiomediastinal silhouette and pulmonary vascularity are within normal limits. Minor bilateral mid zone atelectasis. No lobar consolidation, pleural effusions or pneumothorax. Old rib fractures on the left. IMPRESSION: No acute findings. Dictated by: Marla Pereyra 09/15/2020 16:02 Marla Pereyra in [place] 09/15/2020 16:02
== END ==
PROVIDERS: PCP Emergency Medicine; Visit Provider Internal Medicine Pulmonary Disease
DX: J44.9 Chronic obstructive pulmonary disease, unspecified (principal)
CPT/HCPCS: 71046

== ENCOUNTER → 2020-09-26 09:19 | Outpatient (POV) | payer MEDICARE, OTHER, SELFPAY ==
--- NOTE | 2020-09-26 10:03 | P.CONS_ITS ---
[facility] Pain Management SOAP Note Subjective:: Patient is a pleasant 59-year-old white female who presents today for follow-up. Patient was seen back in 2019 and worked up for a neurostimulator. Patient decided to hold off on the neurostimulator. She returns today to discuss injection therapy. She had epidural injections in the past with good relief. She would like to repeat these. Patient's pain is in her low back down her legs. She is on Plavix. We discussed having to have permission for her to come off prior to injective therapy she is agreeable. She is failed over 6 weeks of physical therapy, massage therapy, chiropractic therapy, medications. She is currently on Finger from her primary care physician. ROS General: no recent weight change, no fever, no sleep disturbances Respiratory: no cough, no shortness of air, no recurring pulmonary infections Cardiovascular/Peripheral Vascular: No chest pain, No palpitations, no edema, no shortness of breath. Gastrointestinal: no new onset incontinence, normal bowel movements reported Genitourinary: no new onset incontinence Musculoskeletal: Back pain, leg pain Psychiatric: normal mood/ affect Neurological: [denies new onset weakness in extremities], [denies new onset balance issues] Objective:: Physical Exam General: Alert and oriented x3, no acute distress, pleasant and cooperative, [on room air] Lungs: Resps E/U, Symmetrical chest expansion, Eyes: PERRL Musculoskeletal: Flexion and extension of lumbar spine somewhat guarded se condary to pain, deep tendon reflexes normal, strength in upper and lower extremities [5/5], [abnormal gait noted] Neurological: speech clear, medical records director equal, no gross sensory deficits Assessment:: Degenerative disc disease lumbar spine lumbar radiculopathy Plan:: we will Schedule the patient for an L4-L5 lumbar epidural steroid injection given the symptomology of the patient in the efficacy of this in the past I do believe it would benefit her. I will follow-up with her afterwards reassess her symptoms at that time. She is on Plavix will ensure that she has permission to be off of this prior to injection. Patient is agreeable. Dr. Schmitt has reviewed this note and agrees with this plan of care. This note was dictated using voice recognition software and may contain errors or omissions [facility] History I have reviewed the patient's past medical history: Yes Medical History: Reports:: Anxiety, Asthma, Coronary Artery Disease, Depression, Diabetes Mellitus Type 1, Diabetes Mellitus Type 2, Gastroesophageal Reflux Disease(GERD), Hyperlipidemia, Hypertension, Migraine, Seizures Denies:: Cancer, Internal Pacemaker, MRSA *Have you ever received a pneumonia vaccine?: Yes *Have you received a flu vaccine this season?: No Other Medical History: Reports: Arthritis, Acquired Immunodeficiency Syndrome (AIDS), Other. Denies: Blood Transfusion Reaction Laterality Cases: Bilateral: Arthroscopy Knee, Other Other Surgeries: Yes: Cardiac Catheterization, Cholecystectomy, Colonoscopy, Coronary Stent, Dilation and Curettage, EGD, Hysterectomy-Total, Hysterectomy- Partial, Tubal Ligation, Other. No: Pacemaker Amputation: No Fractures: Yes - *Social History Smoking Status: Never smoker # Packs/Day (cigarettes): 1 Alcohol Intake: never Substance Use Type: denies use *Occupational Status:: other Housing: house Household Members: family *Travel in the last 8 weeks: None - Psychiatric History Pschychiatric History:: Reports:: Anxiety, Depression Family Hx:: Cancer, Diabetes, Heart Attack
[2020-09-26 10:07] VITALS: BP 135/85; PULSE 71; RESP 18; O2SAT 98; BMI 39.8
--- NOTE | 2020-09-26 16:34 | PC.NURSE ---
PT NOTIFIED THAT APPROVAL WAS OBTAINED FROM DR FELDMAN TO DISCONTINUE PLAVIX 7 DAYS PRIOR TO HER SCHEDULED INJECTION. PT VERBALIZED UNDERSTANDING.
== END ==
PROVIDERS: PCP Emergency Medicine; Visit Provider Clinical Nurse Specialist Family Health
DX: M51.16 Intervertebral disc disorders with radiculopathy, lumbar region (principal)
CPT/HCPCS: 99212; G0463

== ENCOUNTER 2020-10-14 10:42 | Day surgery (SDC) | payer MEDICARE, OTHER, SELFPAY ==
[2020-10-14 10:52] VITALS: BP 115/54; PULSE 74; RESP 18; TEMP 36.6; O2SAT 98; BMI 38.7
[2020-10-14 11:20] VITALS: BP 130/78; PULSE 85; RESP 18; O2SAT 98
[2020-10-14 11:23] VITALS: BP 132/78; PULSE 85; RESP 18; O2SAT 98
--- NOTE | 2020-10-14 11:27 | HMH.PMPROC ---
- Procedure Date: 10/14/20 Time: 11:27 Anesthesiologist:: Gerson Schmitt MD Complications:: None Pre-procedure Diagnosis:: Interim disc disease of lumbar spine with lumbar radiculopathy symptoms Post-procedure Diagnosis:: Same Indications for Procedure:: This patient is a pleasant 59-year-old white female who we are treating for low back pain with lumbar radiculopathy symptoms. She has been off her Plavix for 1 week. She has increasing pain in her back rating down her legs. We will do a lumbar epidural steroid injection today to see if this helps with her pain symptoms. Procedure Details:: Informed consent was obtained and the risk and benefits of the procedure was explained to the patient. The patient was taken to the procedure room. The patient was placed prone on the procedure table. The patient was prepped and draped in sterile fashion. C-arm fluoroscopy was used to view the lumbar spine. Skin and subcutaneous tissues were anesthetized using lidocaine. I placed an 18-gauge epidural needle and advanced into the L4-L5 interspace using fluoroscopic guidance and [id number] to air. After confirmation of needle placement in the epidural space with dye I injected 2 mL of lidocaine 1.5% with Depo-Medrol 80 mg. Patient tolerated the procedure well with no complications. Plan and Disposition:: We will follow-up with her in 2 weeks. Will reevaluate her symptoms at that time.
[2020-10-14 11:33] VITALS: BP 105/69; PULSE 73; RESP 20; O2SAT 97
== END 2020-10-14 11:34 | disposition home or self-care (01) ==
LOC: SC.PAINP 10:44
PROVIDERS: PCP Emergency Medicine; Visit Provider Anesthesiology
DX: M51.16 Intervertebral disc disorders with radiculopathy, lumbar region (principal); K21.9 Gastro-esophageal reflux disease without esophagitis; E78.5 Hyperlipidemia, unspecified; I10 Essential (primary) hypertension; I25.10 Atherosclerotic heart disease of native coronary artery without angina pectoris; E11.9 Type 2 diabetes mellitus without complications; R56.9 Unspecified convulsions; J45.909 Unspecified asthma, uncomplicated; F41.9 Anxiety disorder, unspecified; F32.9 Major depressive disorder, single episode, unspecified; E03.9 Hypothyroidism, unspecified; M19.90 Unspecified osteoarthritis, unspecified site
CPT/HCPCS: 62323; J1040; Q9966

== ENCOUNTER → 2020-11-07 10:42 | Outpatient (POV) | payer MEDICARE, OTHER, SELFPAY ==
[2020-11-07 11:02] VITALS: BP 102/63; PULSE 75; RESP 18; O2SAT 97; BMI 51.3
--- NOTE | 2020-11-07 12:19 | P.CONS_ITS ---
[facility] Pain Management SOAP Note Subjective:: The pleasant 59-year-old white female who we are treating for low back pain with lumbar radiculopathy. Patient is done extremely well after her lumbar epidurals steroid injection. Patient currently rates her pain a 3 out of 10. Patient would like to repeat this in several weeks. Overall patient is doing quite well. She also wanted to discuss her cervical pain. Patient is having quite a bit of neck pain radiating down into her bilateral lower extremities. Patient denied also discussed cervical epidural steroid injections. She like to pursue this. She is on Plavix however she does have permission to come off prior to injective therapy. ROS General: no recent weight change, no fever, no sleep disturbances Respiratory: no cough, no shortness of air, no recurring pulmonary infections Cardiovascular/Peripheral Vascular: No chest pain, No palpitations, no edema, no shortness of breath. Gastrointestinal: no new onset incontinence, normal bowel movements reported Genitourinary: no new onset incontinence Musculoskeletal: Back pain, leg pain, neck pain, arm pain Psychiatric: normal mood/ affect Neurological: [denies new onset weakness in extremities], [denies new onset balance issues] Objective:: Physical Exam General: Alert and oriented x3, no acute distress, pleasant and cooperative, Lungs: Resps E/U, Symmetrical chest expansion Eyes: PERRL Musculoskeletal: Flexion and extension of cervical spine somewhat guarded secondary to pain, deep tendon reflexes normal, strength in upper and lower extremities [5/5], slightly antalgic gait noted Neurological: speech clear, sap business intelligence consultant equal, no gross sensory deficits Assessment:: Degenerative disc disease cervical spine cervical radiculopathy, Plan:: We will set the patient for C5-C6 cervical epidural steroid injection. I will follow-up with her after this reassess her symptoms at that time she is been instructed to call the office if she has any issues prior to her next appointment. She has permission to come off of her Plavix prior to this. The end Dr. Schmitt has reviewed this note and agrees with this plan of care. This note was dictated using voice recognition software and may contain errors or omissions [facility] History I have reviewed the patient's past medical history: Yes Medical History: Reports:: Anxiety, Asthma, Coronary Artery Disease, Depression, Diabetes Mellitus Type 2, Gastroesophageal Reflux Disease(GERD), Hyperlipidemia, Hypertension, Migraine Denies:: Cancer, Diabetes Mellitus Type 1, Internal Pacemaker, MRSA, Seizures *Have you ever received a pneumonia vaccine?: Yes *Have you received a flu vaccine this season?: Yes Other Medical History: Reports: Arthritis, Acquired Immunodeficiency Syndrome (AIDS), Hypothyroidism, Other. Denies: Blood Transfusion Reaction Laterality Cases: Bilateral: Arthroscopy Knee, Other Other Surgeries: Yes: Cardiac Catheterization, Cholecystectomy, Colonoscopy, Coronary Stent, Dilation and Curettage, EGD, Hysterectomy-Total, Hysterectomy- Partial, Tubal Ligation, Other (chest wall biopsy). No: Pacemaker Amputation: No Fractures: Yes - *Social History Smoking Status: Never smoker # Packs/Day (cigarettes): 1 Alcohol Intake: never Substance Use Type: denies use *Occupational Status:: retired Housing: house Household Members: other *Travel in the last 8 weeks: None - Psychiatric History Pschychiatric History:: Reports:: Anxiety, Depression Family Hx:: Cancer, Diabetes, Heart Attack
== END ==
PROVIDERS: PCP Emergency Medicine; Visit Provider Clinical Nurse Specialist Family Health
DX: M50.10 Cervical disc disorder with radiculopathy, unspecified cervical region (principal)
CPT/HCPCS: 99212; G0463

== ENCOUNTER → 2020-11-11 12:23 | Outpatient (CLI) | payer MEDICARE, OTHER, SELFPAY ==
[2020-11-11 13:14] LABS: Basophils # 0.1 K/mm3 (0-0.2); Basophils % 0.7 % (0.1-2.0); Eosinophils # 0.3 K/mm3 (0.0-0.4); Eosinophils % 3.4 % (0.1-12.0); Hematocrit 38.5 % (37.0-47.0); Hemoglobin 11.8 g/dL (12.2-16.2); Lymphocytes # 1.6 K/mm3 (0.7-4.5); Lymphocytes % 22.3 % (10-50); Mean Corpuscular HGB Conc 30.6 g/dL (31.8-35.4); Mean Corpuscular Hemoglobin 27.2 pg (27.0-31.2); Mean Platelet Volume 8.2 fl (7.4-10.4); Monocytes # 0.3 K/mm3 (0.1-1.0); Monocytes % 4.4 % (1.7-9.3); Neutrophils # 4.9 K/mm3 (1.8-7.8); Neutrophils % 69.2 % (37.0-80.0); Platelet Count 208 K/mm3 (142-424); Red Blood Count 4.33 M/mm3 (4.20-5.40); White Blood Count 7.1 K/mm3 (4.8-10.8)
[2020-11-11 14:11] LABS: Chloride 103 mmol/L (98-107); Sodium 137 mmol/L (136-145)
[2020-11-11 14:12] LABS: Potassium 3.9 mmoL/L (3.5-5.1)
[2020-11-11 14:14] LABS: Blood Urea Nitrogen 15 mg/dl (7-17); Estimated Glomerular Filt Rate 103 ml/min (>60); GFR (African American) 124 ML/MIN (>60)
[2020-11-11 14:15] LABS: Anion Gap 12.9 mEq/L (5-15); Calcium 8.5 mg/dl (8.4-10.2); Carbon Dioxide 25 mmol/L (22.0-30.0); Glucose 104 mg/dl (74-100)
[2020-11-11 14:32] LABS: Free T4 (Free Thyroxine) 0.98 ng/dl (0.78-2.19)
[2020-11-11 14:45] LABS: Thyroid Stimulating Hormone 2.31 uIU/mL (0.465-4.68)
[2020-11-13 09:54] LABS: Thyroid Peroxidase Antibodies <9 IU/mL (0-34)
== END ==
PROVIDERS: Emergency Medicine; Visit Provider Nurse Practitioner Family
DX: I10 Essential (primary) hypertension (principal); R60.9 Edema, unspecified
CPT/HCPCS: 36415; 80048; 84439; 84443; 85025; 86376

== ENCOUNTER → 2020-11-16 11:26 | Outpatient (CLI) | payer MEDICARE, OTHER, SELFPAY ==
--- NOTE | 2020-11-16 11:29 | CA_ITS ---
APPROVED REPORT Left Lower Extremity Venous Study for DVT. Corporate Statistical Financial Analyst: TAYLER Indications swelling in LLE s/p injury Risk Factors Obesity Vein Imaging CFV (L): compressive, spontaneous, phasic, augmentation FEM (L): compressive, spontaneous, phasic, augmentation POP (L): compressive, spontaneous, phasic, augmentation DFV (L): compressive, spontaneous, phasic, augmentation PTV (L): compressive, spontaneous, phasic, augmentation GSV (L): compressive, spontaneous, phasic, augmentation SSV (L): compressive, spontaneous, phasic, augmentation Peroneals (L):compressive, spontaneous, phasic, augmentation GAS (L): compressive, spontaneous, phasic, augmentation Findings Color flow duplex demonstrates no evidence of DVT of the following left lower extremity Veins:Common Femoral Vein, Femoral Vein, Popliteal Vein, Posterior Tibial Veins, Peroneal Veins, Deep Femoral Vein. Negative for DVT. Conclusion Color flow duplex demonstrates no evidence of DVT of the following left lower extremity Veins:Common Femoral Vein, Femoral Vein, Popliteal Vein, Posterior Tibial Veins, Peroneal Veins, Deep Femoral Vein. Negative for DVT. Electronically signed by : Nate Sharma MD 11/16/2020 16:43:17
== END ==
PROVIDERS: PCP Emergency Medicine; Visit Provider Physician Assistant
DX: M79.89 Other specified soft tissue disorders (principal); M79.662 Pain in left lower leg; R60.0 Localized edema
CPT/HCPCS: 93971

== ENCOUNTER → 2020-11-17 15:25 | Outpatient (CLI) | payer MEDICARE, OTHER, SELFPAY | PROVIDERS: Visit Provider Nurse Practitioner Family | DX: N39.0 Urinary tract infection, site not specified (principal) | CPT/HCPCS: 87086 ==

== ENCOUNTER → 2020-11-30 13:41 | Outpatient (CLI) | payer MEDICARE, OTHER, SELFPAY ==
[2020-12-02 15:26] LABS: Creatinine,Urine Random 9 mg/dL (Not Estab.); Microalbumin < 3.000 mg/L (0-16.7)
== END ==
PROVIDERS: Visit Provider Emergency Medicine
DX: E11.9 Type 2 diabetes mellitus without complications (principal); Z79.84 Long term (current) use of oral hypoglycemic drugs
CPT/HCPCS: 82043; 82570

== ENCOUNTER → 2020-12-12 12:58 | Outpatient (CLI) | payer MEDICARE, OTHER, SELFPAY ==
[2020-12-12 13:45] VITALS: PULSE 75; PULSE 76
== END ==
PROVIDERS: PCP Emergency Medicine; Visit Provider Internal Medicine Pulmonary Disease
DX: R06.00 Dyspnea, unspecified (principal)
CPT/HCPCS: 94060; 94618; 94640; 94726; 94729

== ENCOUNTER 2020-12-30 14:27 | Observation (INO) | payer MEDICARE, SELFPAY ==
[2020-12-30] VITALS (11 sets, daily range): BP systolic 77–104; BP diastolic 40–72; PULSE 65–72; RESP 16–20; TEMP 36.6–36.8; O2SAT 93–98; BMI 38.7; BMI 36.3
--- NOTE | 2020-12-30 15:43 | HMH.EDGENADL ---
ED Disposition Clinical Impression: Hypotension Qualifiers: Hypotension type: unspecified hypotension type Qualified Code(s): I95.9 - Hypotension, unspecified Disposition: Admitted as Observation Condition on Discharge: Good - Critical Care Critical Care Time: No Attestation: On 12/30/20, the high probability of a clinically significant, sudden or life threatening deterioration of the following system(s) required my full and direct attention, intervention and personal management. The time I documented below is in addition to time spent performing reported procedures but includes the following listed in this critical care notation. Medical Decision Making - Medical Records Medical records reviewed: Yes: I reviewed the patient's medical records. MR Comment: Diagnosis of hypotension noted on problem list. Entered on 07/27/2019 by Bobbi Salamanca. Office note from that date reviewed. Hypotension was felt to be due to medication. Blood pressure was 80 systolic in the office. - [place] Inquiry Pt receiving controlled substance: No Vital Signs: 12/30/20 14:28 12/30/20 16:05 Temperature 98.2 F Temperature Source Oral Pulse Rate 65 Pulse Rate [Right] 72 Respiratory Rate 16 19 Blood Pressure 104/56 L Blood Pressure [Right Arm] 82/45 L Blood Pressure Mean [Right Arm] 57 Blood Pressure Source [Right Arm] Automatic Cuff 02 Sat by Pulse Oximetry 96 93 L Oxygen Delivery Method Room Air - Lab Data Lab Results 12/30/20 14:58: WBC 8.7, RBC 4.36, Hgb 12.7, Hct 38.3, MCV 87.7, MCH 29.0, MCHC 33.1, RDW 14.1, Plt Count 184, MPV 8.4, Neut % (Auto) 73.0, Lymph % (Auto) 18.2, [place] % (Auto) 4.9, Eos % (Auto) 3.1, Baso % (Auto) 0.7, Neut # (Auto) 6.4, Lymph # (Auto) 1.6, [place] # (Auto) 0.4, Eos # (Auto) 0.3, Baso # (Auto) 0.1 12/30/20 14:58: Sodium 134 L, Potassium 5.3 H, Chloride 102, Carbon Dioxide 23, Anion Gap 14.3, BUN 22 H, Creatinine 1.00, Estimated Creat Clear 95, Estimated GFR 57 L, Est GFR ( Amer) 69, Glucose 95, Calcium 8.4, Total Bilirubin 0.2, AST 22, ALT 14, Alkaline Phosphatase 76, Total Protein 6.9, Albumin 4.4, Globulin 2.5, Albumin/Globulin Ratio 1.8 12/30/20 14:58: Troponin I < 0.01, C-Reactive Protein 2.1 12/30/20 14:58: ESR 46 H 12/30/20 15:50: Urine Color Yellow, Urine Appearance Cloudy, Urine pH 6.0, Ur Specific Turner 1.015, Urine Protein Negative, Urine Glucose (UA) Negative, Urine Ketones Negative, Urine Blood Negative, Urine Nitrate Negative, Urine Bilirubin Negative, Urine Urobilinogen 0.2, Ur Leukocyte Esterase 2+ A, Urine RBC None, Urine WBC 3-5, Ur Squamous Epith Cells 5-10, Urine Bacteria None 12/30/20 16:19: Lactate 1.4 Result diagrams: 12/30/20 14:58 12/30/20 14:58 Orders (Tests/Meds): ED MEDICATIONS Discontinued Medications Generic Name Dose Route Start Last Admin Trade Name Chris PRN Reason Stop Dose Admin Sodium Chloride 1,000 mls @ 999 mls/hr 12/30/20 16:00 12/30/20 17:00 Sod Chlor 0.9% 1000ml Bag IV 12/30/20 17:00 999 mls/hr .Q1H1M OLENA Administration Iopamidol 70 ml 12/30/20 16:27 12/30/20 16:28 Iopamidol-370 (76%);100ml Bottle IV 12/30/20 16:28 70 ml ONCE ONE Administration Sodium Chloride 40 ml 12/30/20 16:27 12/30/20 16:28 0.9 % Sodium Chloride 50 Ml Vial IV 12/30/20 16:28 40 ml ONCE ONE Administration Sodium Chloride 10 ml 12/30/20 16:27 12/30/20 16:28 Sodium Chloride 0.9% 10ml Syr (Rad Only) IV 12/30/20 16:28 10 ml ONCE ONE Administration ORDERS Category Date Time Status Rapid PCR Covid and Flu A/B Stat Lab 12/30/20 18:08 Received Troponin I Q3H Lab 12/30/20 19:00 Ordered Troponin I Q3H Lab 12/30/20 22:00 Ordered Blood Culture Stat Micro 12/30/20 16:19 Received Urine Culture Stat Micro 12/30/20 15:50 Received - Radiology Data #1 Image(s): Chest Image Reviewed: Yes I have reviewed radiologist's interpretation PROCEDURE: XR CHEST PORTABLE CLINICAL HISTORY: pain right side Congestion and
--- NOTE | 2020-12-30 15:56 | XR_ITS ---
PROCEDURE: XR CHEST PORTABLE CLINICAL HISTORY: pain right side Congestion and pain COMPARISON: CR XR CHEST 2V from 06/01/2020 CR XR CHEST 2V from 09/15/[address] ANGIO CHEST PE PROTOCOL from 12/30/2020 FINDINGS: The cardiomediastinal silhouette and pulmonary vascularity are within normal limits. The lungs are clear without infiltrates, suspicious nodules, or pleural effusions. There are multiple old left-sided rib fractures. Degenerative changes are present in the shoulders. IMPRESSION: No acute findings. Dictated by: Nate Sharma MD 12/30/2020 16:41 Nate Sharma MD in [place] 12/30/2020 16:41
--- NOTE | 2020-12-30 15:58 | CT_ITS ---
PROCEDURE: CT HEAD/BRAIN WO CON CLINICAL INDICATION: AMS Dizziness, hallucinations COMPARISON: MR MR HEAD/BRAIN WO CON from 08/16/2020 TECHNIQUE: Axial images obtained. All CT scans at the facility use one or more dose reduction, viz: automated exposure control, ma/kV adjustment per patient size (including targeted exams where dose is matched to indication, i.e. head), or iterative reconstruction technique. FINDINGS: No midline shift, mass effect, intracranial hemorrhage, hydrocephalus, or extra-axial fluid collection is evident. The calvarium has an unremarkable appearance. No mastoid effusion. No sinus air-fluid level. IMPRESSION: No acute intracranial finding Dictated by: Nate Sharma MD 12/30/2020 16:43 Nate Sharma MD in [facility] 12/30/2020 16:43
--- NOTE | 2020-12-30 15:59 | CT_ITS ---
PROCEDURE: CT ANGIO CHEST PE PROTOCOL CLINCIAL INDICATION: R chest pain COMPARISON: No exams were available for comparison TECHNIQUE: IV Contrast: 70ML Isovue 370 Axial images obtained with sagittal and coronal reformats. All CT scans at the facility use one or more dose reduction, viz: automated exposure control, ma/kV adjustment per patient size (including targeted exams where dose is matched to indication, i.e. head), or iterative reconstruction technique. FINDINGS: HEART AND MEDIASTINAL STRUCTURES: No evidence of pulmonary embolus, aortic aneurysm, or aortic dissection. LUNGS AND PLEURAL SPACES: There is minimal thickening of the right minor fissure anteriorly nonspecific. Mild atelectatic change right lower lobe. Minimal atelectasis left upper lobe BONY STRUCTURES: There are old fractures of the left 3rd, 4th, 5th, 6th, 7th ribs UPPER ABDOMEN: See abdomen CT report ADDITIONAL FINDINGS: No other significant abnormalities. IMPRESSION: No acute finding. No evidence of pulmonary embolus. Minor atelectatic changes in the right lower and left upper lobes Dictated by: Nate Sharma MD 12/30/2020 16:48 Nate Sharma MD in [place] 12/30/2020 16:48
[2020-12-30 16:00] LABS: Chloride 102 mmol/L (98-107); Sodium 134 mmol/L (136-145)
--- NOTE | 2020-12-30 16:00 | CT_ITS ---
PROCEDURE: CT ABDOMEN PELVIS WO CON CLINICAL INDICATION: R flank pain COMPARISON: No exams were available for comparison TECHNIQUE: Axial images obtained with sagittal and coronal reformats. All CT scans at the facility use one or more dose reduction, viz: automated exposure control, ma/kV adjustment per patient size (including targeted exams where dose is matched to indication, i.e. head), or iterative reconstruction technique. FINDINGS: Liver: Unremarkable. . Spleen: Unremarkable. Adrenal glands: Unremarkable. Gallbladder and bile ducts: Prior cholecystectomy. Mild biliary dilatation. May be due to reservoir effect from prior cholecystectomy Pancreas: Unremarkable. Kidneys: Unremarkable no renal or ureteral calculi. Appendix: Unremarkable Stomach and bowel: Status post gastric bypass. No intestinal obstruction or free air. There is a mild amount of retained colonic feces. No evidence of diverticulitis. 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 Mildly distended Peritoneum: Unremarkable. Abdominal wall: Small umbilical hernia containing fat Bony structures: No acute finding IMPRESSION: No acute finding Dictated by: Nate Sharma MD 12/30/2020 17:14 Nate Sharma MD in [place] 12/30/2020 17:14
[2020-12-30 16:01] LABS: Potassium 5.3 mmoL/L (3.5-5.1)
[2020-12-30 16:03] LABS: Alanine Aminotransferase 14 U/L (12-78); Albumin Level 4.4 g/dl (3.5-5.0); Albumin/Globulin Ratio 1.8 (1.1-1.8); Alkaline Phosphatase 76 U/L (38-126); Anion Gap 14.3 mEq/L (5-15); Aspartate Amino Transferase 22 U/L (14-36); Bilirubin,Total 0.2 mg/dl (0.2-1.3); Blood Urea Nitrogen 22 mg/dl (7-17); Carbon Dioxide 23 mmol/L (22.0-30.0); Creatinine Clearance Estimated 95 mL/min (50-200); Estimated Glomerular Filt Rate 57 ml/min (>60); GFR (African American) 69 ML/MIN (>60); Globulin 2.5 g/dL (1.3-3.2); Total Protein,Serum 6.9 g/dl (6.3-8.2)
[2020-12-30 16:04] LABS: Calcium 8.4 mg/dl (8.4-10.2); Glucose 95 mg/dl (74-100)
[2020-12-30 16:07] LABS: Basophils # 0.1 K/mm3 (0-0.2); Basophils % 0.7 % (0.1-2.0); Eosinophils # 0.3 K/mm3 (0.0-0.4); Eosinophils % 3.1 % (0.1-12.0); Hematocrit 38.3 % (37.0-47.0); Hemoglobin 12.7 g/dL (12.2-16.2); Lymphocytes # 1.6 K/mm3 (0.7-4.5); Lymphocytes % 18.2 % (10-50); Mean Corpuscular HGB Conc 33.1 g/dL (31.8-35.4); Mean Corpuscular Volume 87.7 fl (81-99); Mean Platelet Volume 8.4 fl (7.4-10.4); Monocytes # 0.4 K/mm3 (0.1-1.0); Monocytes % 4.9 % (1.7-9.3); Neutrophils # 6.4 K/mm3 (1.8-7.8); Platelet Count 184 K/mm3 (142-424); Red Blood Count 4.36 M/mm3 (4.20-5.40); Red Cell Distribution Width 14.1 % (11.5-17.5); White Blood Count 8.7 K/mm3 (4.8-10.8)
[2020-12-30 16:14] LABS: C-Reactive Protein 2.1 mg/L (0-4)
[2020-12-30 16:25] LABS: Troponin I < 0.01 ng/ml (0.00-0.034)
[2020-12-30 16:28] LABS: Microscopic, Urine URINE MICROSCOPIC (MICROSCOPIC)
[2020-12-30 16:31] LABS: Appearance,Urine CLOUDY (Clear); Bilirubin,Urine Negative (Negative); Blood, Urine Negative (Negative); Color,Urine YELLOW (Yellow); Glucose,Urine (UA) Negative (Negative); Ketones,Urine Negative (Negative); Leukocyte Esterase,Urine 2+ (Negative); Nitrate,Urine Negative (Negative); Protein,Urine Negative (Negative); Specific Gravity, Urine 1.015 (1.005-1.030); Urobilinogen,Urine 0.2 EU/dl (0.2)
[2020-12-30 16:36] LABS: Erythrocyte Sedimentation Rate 46 mm/hr (0-30)
[2020-12-30 16:39] LABS: Lactic Acid 1.4 mmol/L (0.7-2.1)
--- NOTE | 2020-12-30 16:47 | ECG_ITS ---
APPROVED REPORT Exam: Resting ECG HR:68 bpm ECG Measurements Heart Rate 68 AXES SC 144 P 50 QRSd 90 QRS 46 QT 438 T 55 QTc 465 Conclusion Normal sinus rhythm Normal ECG Electronically signed by : Rui Ortiz, 12/31/2020 17:28:27
[2020-12-30 18:13] LABS: Coronavirus 19, PCR Not Detected (NotDetected); Influenza A, PCR Not Detected (NotDetected); Influenza B, PCR Not Detected (NotDetected)
--- NOTE | 2020-12-30 18:30 | PC.NURSE ---
bed assignment requested, room 215. all staff notified
--- NOTE | 2020-12-30 19:22 | PC.NURSE ---
report called to MAGDALENO Justin
--- NOTE | 2020-12-30 20:04 | PC.NURSE ---
received notification from lab that blood has to be sent off due to an atb. for crossmatch in [place]. notified chen zhao rn
--- NOTE | 2020-12-30 20:07 | PC.NURSE ---
PT ARRIVED TO FLOOR VIA STRETCHER FROM ED W/STAFF AT 2006
[2020-12-31] VITALS: BP 93/50; PULSE 69; RESP 16; TEMP 36.3; O2SAT 95
[2020-12-31 01:34] LABS: POC Glucose,Bedside 102 (70-110)
--- NOTE | 2020-12-31 03:38 | PC.NURSE ---
Patient was a new admission from the ED. She has been pleasant since arriving to the floor. She is alert and oriented x4. Bowel sounds are all active. Lung sounds are clear. She is wearing TEDS on both lower extremities. Ambulates independently to the bathroom. She has had no complaints thus far. Vital signs are stable. Will continue to monitor. Call light within reach.
[2020-12-31 04:00] VITALS: BP 85/56; PULSE 70; RESP 21; TEMP 36.9; O2SAT 96
[2020-12-31 05:00] VITALS: BMI 36.3
[2020-12-31 05:40] LABS: POC Glucose,Bedside 151 (70-110)
[2020-12-31 07:55] VITALS: BP 100/46; PULSE 78; RESP 18; TEMP 37; O2SAT 95
--- NOTE | 2020-12-31 08:16 | P.CONPHA_ITS ---
[facility] Pharmacy VTE Monitoring - Patient Demographics Admission date: 12/30/20 Report Date: 12/31/20 Time: 08:16 Allergies/Adverse Reactions: Patient Allergies milk Adverse Reaction (Mild, Verified 12/30/20 21:44) Nausea Height: 1.6 m Weight: 93.157 kg Patient Problems: Current Active Problems (Last Updated 08/04/19 @ 11:19 by Yaa Bergman RN) Hypotension (Acute) - VTE Risk Labs: VTE Related Lab Results Hgb 12.7 g/dL (12.2-16.2) 12/30/20 14:58 Hct 38.3 % (37.0-47.0) 12/30/20 14:58 Plt Count 184 K/mm3 (142-424) 12/30/20 14:58 BUN 22 mg/dl (7-17) H 12/30/20 14:58 Creatinine 1.00 mg/dl (0.52-1.04) 12/30/20 14:58 Estimated Creat Clear 95 mL/min (50-200) 12/30/20 14:58 Was VTE Risk Assessment Performed: Yes VTE Score: 4 VTE Risk Level: Low Risk - Prophylaxis VTE Prophylaxis Ordered?: Yes Types of VTE Prophylaxis: TEDS Knee High Location of Applied Device: Bilateral Lower Extremeties
--- NOTE | 2020-12-31 09:04 | HMH.HP ---
*Admission Date: 12/30/20 *Chief complaint: dizzyness *History of present illness: this patient presented to the ed with issues of dizzyness-omplains of feeling dizzy. Says she has both a sensation of spinning as well as lightheadedness/presyncope. Symptoms have been resident for a month, worse over the past couple of weeks. Also complains of pain in her right posterior thorax in the region of the lower chest and upper lumbar area. Pain comes and goes over the past week to 2. No exacerbating or alleviating factors except seems to be worse when she gets up and gets around. pt was admitted with ivf and abx at this time [facility] History I have reviewed the patient's past medical history: Yes Medical History: Reports:: Anxiety, Arrhythmia, Asthma, Coronary Artery Disease, Depression, Diabetes Mellitus Type 1, Diabetes Mellitus Type 2, Gastroesophageal Reflux Disease(GERD), Heart Murmur, Hyperlipidemia, Hypertension, Migraine, Seizures Denies:: Cancer, Internal Pacemaker, MRSA *Have you ever received a pneumonia vaccine?: Yes *Have you received a flu vaccine this season?: No Other Medical History: Reports: Anemia, Arthritis, Fibromyalgia, Acquired Immunodeficiency Syndrome (AIDS), Hypothyroidism, Other. Denies: Blood Transfusion Reaction Laterality Cases: Bilateral: Arthroscopy Knee, Other Other Surgeries: Yes: Cardiac Catheterization, Cholecystectomy, Colonoscopy, Coronary Stent, Dilation and Curettage, EGD, Hysterectomy-Total, Hysterectomy-Partial, Tubal Ligation, Other (chest wall biopsy). No: Pacemaker Amputation: No Fractures: Yes - *Social History Smoking Status: Never smoker # Packs/Day (cigarettes): 1 Alcohol Intake: never Substance Use Type: denies use *Occupational Status:: disabled Housing: house Household Members: other *Travel in the last 8 weeks: None - Psychiatric History Pschychiatric History:: Reports:: Anxiety, Depression Family Hx:: Bleeding Disorder, Cancer, Coronary Artery Disease, Diabetes, Heart Attack, Hyperlipidemia, Hypertension Review of Systems - Review of Systems Review of systems:: pertinent systems reviewed and negative unless documented below - Constitutional Reports weakness, Denies fever(s) - Eyes Denies change in vision - ENT Denies sore throat - *Cardiovascular Denies chest pain at rest, Denies shortness of breath - *Respiratory Denies cough - *Gastrointestinal Denies abdominal pain - *Genitourinary Denies blood in urine - *Musculoskeletal Denies joint pain - Integumentary/Breasts Denies rash - *Neurologic Denies headache(s), Denies tingling/numbness/burning sensations, Denies seizure-like activity - Psychiatric Denies anxiety Meds Home Medications Medication Instructions Recorded Confirmed Type aspirin 81 mg tablet,delayed 81 mg PO DAILY 04/12/20 12/30/20 History release fluoxetine 40 mg capsule 80 mg PO DAILY #90 cap 08/03/20 12/30/20 Rx ketotifen fumarate 0.025 % (0.035 1 drp OPHTHALMIC BID PRN #5 ml 08/03/20 12/30/20 Rx %) eye drops ipratropium 0.5 mg-albuterol 3 mg 3 ml INHALATION QID PRN #90 ml 09/06/20 12/30/20 Rx (2.5 mg base)/3 mL nebulization soln potassium chloride 20 mEq 20 meq PO DAILY #90 tab 09/12/20 12/30/20 Rx tablet,extended release(part/cryst) hydroxyzine pamoate 25 mg capsule 25 mg PO HS #90 cap 10/09/20 12/30/20 Rx Albuterol Sulfate [Albuterol 2 puffs IH Q6HP PRN 10/14/20 12/31/20 History Sulfate Hfa] Alendronate Sodium [Fosamax 70mg 70 mg PO WEEKLY 10/14/20 12/30/20 History Tablet] Azelastine HCl [Azelastine Nasal 1 spray INTRANASAL BID 10/14/20 12/30/20 History [place] 30mL Bottle] Cetirizine HCl 10 mg PO DAILY 10/14/20 12/30/20 History Dicyclomine HCl [Bentyl 10mg 20 mg PO QID 10/14/20 12/31/20 History capsule] Fluticasone/Salmeterol [Advair 1 puff IH BID 10/14/20 12/31/20 History 100/50mcg diskus] Montelukast Sodium [Singulair] 10 mg PO HS 10/14/20 12/31/20 History Omeprazole 20 mg PO DAILY 10/14/20
[2020-12-31 10:45] LABS: Basophils % 0.4 % (0.1-2.0); Eosinophils # 0.2 K/mm3 (0.0-0.4); Eosinophils % 3.3 % (0.1-12.0); Hematocrit 37.8 % (37.0-47.0); Hemoglobin 12.4 g/dL (12.2-16.2); Lymphocytes # 1.1 K/mm3 (0.7-4.5); Lymphocytes % 17.9 % (10-50); Mean Corpuscular HGB Conc 32.8 g/dL (31.8-35.4); Mean Corpuscular Hemoglobin 28.7 pg (27.0-31.2); Mean Corpuscular Volume 87.3 fl (81-99); Mean Platelet Volume 8.4 fl (7.4-10.4); Monocytes # 0.2 K/mm3 (0.1-1.0); Monocytes % 3.7 % (1.7-9.3); Neutrophils # 4.8 K/mm3 (1.8-7.8); Neutrophils % 74.7 % (37.0-80.0); Platelet Count 176 K/mm3 (142-424); Red Blood Count 4.32 M/mm3 (4.20-5.40); White Blood Count 6.4 K/mm3 (4.8-10.8)
[2020-12-31 10:51] LABS: Anion Gap 10.6 mEq/L (5-15); Blood Urea Nitrogen 9 mg/dl (7-17); Carbon Dioxide 20 mmol/L (22.0-30.0); Chloride 112 mmol/L (98-107); Creatinine Clearance Estimated 148 mL/min (50-200); Estimated Glomerular Filt Rate 102 ml/min (>60); GFR (African American) 124 ML/MIN (>60); Glucose 139 mg/dl (74-100); Potassium 4.6 mmoL/L (3.5-5.1); Sodium 138 mmol/L (136-145)
[2020-12-31 11:47] LABS: POC Glucose,Bedside 146 (70-110)
--- NOTE | 2020-12-31 15:35 | PC.NURSE ---
received call from Cynhtia in lab stating that aerobic blood cx is growing Staphylococcus. Name and verified.
[2020-12-31 15:37] VITALS: BP 110/67; PULSE 73; RESP 19; TEMP 36.7; O2SAT 97
--- NOTE | 2020-12-31 15:59 | PC.NURSE ---
notified Dr. Marc of positive aerobic blood cultures growing Staphylococcus. Dr. Marc ordered Vanc dosing per pharmacy. Paged oncall pharmacist.
--- NOTE | 2020-12-31 16:06 | PC.NURSE ---
received call back from nightndtch pharmacist (Akin) with new order for Vancomycin 1g Q12hrs. He states that he will enter order.
[2020-12-31 17:30] LABS: POC Glucose,Bedside 136 (70-110)
--- NOTE | 2020-12-31 19:10 | PC.NURSE ---
received call from Raúl in the lab reporting that Aerobic blood cx is growing Staphylococcus and gram positive rods. Name and verified. Dr. Marc is aware.
[2020-12-31 20:00] VITALS: BP 102/67; PULSE 69; RESP 17; TEMP 36.6; O2SAT 98
[2020-12-31 20:13] VITALS: PULSE 70
[2020-12-31 20:59] LABS: POC Glucose,Bedside 140 (70-110)
[2021-01-01] VITALS: BP 109/69; PULSE 60; PULSE 67; RESP 18; TEMP 36.8; O2SAT 99
[2021-01-01 04:00] VITALS: BP 108/62; PULSE 60; PULSE 61; RESP 17; TEMP 36.5; O2SAT 99
--- NOTE | 2021-01-01 04:26 | PC.NURSE ---
Vancomycin dose verified with pharmacy, had to mix
[2021-01-01 05:00] VITALS: BMI 37.5
--- NOTE | 2021-01-01 05:00 | PC.NURSE ---
Patient has been pleasant this shift. She is alert and oriented x4. Lung sounds did have some expiratory wheezing in the upper lobes but other otero clear. She has not had any complaints this shift and has rested comfortably through the night. Vital signs are stable, will continue to monitor. Call light within reach.
[2021-01-01 06:04] LABS: POC Glucose,Bedside 117 (70-110)
[2021-01-01 07:52] VITALS: BP 114/68; PULSE 73; RESP 18; TEMP 36.5; O2SAT 100
--- NOTE | 2021-01-01 08:58 | HMH.DCSUM ---
General - General Admission date:: 12/30/20 Discharge date: 01/01/21 HPI HPI: this patient presented to the ed with issues of dizzyness-omplains of feeling dizzy. Says she has both a sensation of spinning as well as lightheadedness/presyncope. Symptoms have been resident for a month, worse over the past couple of weeks. Also complains of pain in her right posterior thorax in the region of the lower chest and upper lumbar area. Pain comes and goes over the past week to 2. No exacerbating or alleviating factors except seems to be worse when she gets up and gets around. pt was admitted with ivf and abx at this time Hospital Course Hospital Course: pt has slowly improved with ivf and has stable bp and tolerating diet and activity - urine culture not diagnostic and feel blood culture requires no treatment -will have pt monitor bp at home and will follow closely and review meds - Objective Vital signs: Temp Pulse Resp BP Pulse Ox 97.7 F 73 18 114/68 100 01/01/21 07:52 01/01/21 07:52 01/01/21 07:52 01/01/21 07:52 01/01/21 07:52 no acute distress, obese - *Routine HEENT Exam Head: Present: normocephalic Eye: Present: EOMI, PERRL. Absent: nystagmus ENT: Present: mucous membranes moist - *Routine Neck Exam Present: supple - *Routine Respiratory Exam Present: CTA bilaterally - *Routine Cardiovascular Exam Present: RRR - *Routine Abdominal Exam Present: soft - *Routine Extremities Exam Absent: Adam's sign - *Routine Skin Exam Present: intact - *Routine Neurological Exam Present: alert, oriented X3, CN II-XII intact. Absent: motor deficit - Routine Psychiatric Exam Present: normal affect Results Labs on day of discharge: Labs from last 24 hours 01/01/21 12/31/20 12/31/20 05:39 19:49 16:51 WBC RBC Hgb Hct MCV MCH MCHC RDW Plt Count MPV Neut % (Auto) Lymph % (Auto) [place] % (Auto) Eos % (Auto) Baso % (Auto) Neut # (Auto) Lymph # (Auto) [place] # (Auto) Eos # (Auto) Baso # (Auto) Sodium Potassium Chloride Carbon Dioxide Anion Gap BUN Creatinine Estimated Creat Clear Estimated GFR Est GFR ( Amer) Glucose POC Glucose 117 H 140 H 136 H Calcium 12/31/20 12/31/20 12/31/20 11:40 10:30 10:30 WBC 6.4 D RBC 4.32 Hgb 12.4 Hct 37.8 MCV 87.3 MCH 28.7 MCHC 32.8 RDW 14.0 Plt Count 176 MPV 8.4 Neut % (Auto) 74.7 Lymph % (Auto) 17.9 [place] % (Auto) 3.7 Eos % (Auto) 3.3 Baso % (Auto) 0.4 Neut # (Auto) 4.8 Lymph # (Auto) 1.1 [place] # (Auto) 0.2 Eos # (Auto) 0.2 Baso # (Auto) 0.0 Sodium 138 Potassium 4.6 Chloride 112 H Carbon Dioxide 20 L Anion Gap 10.6 BUN 9 D Creatinine 0.60 D Estimated Creat Clear 148 Estimated GFR 102 Est GFR ( Amer) 124 D Glucose 139 H D POC Glucose 146 H Calcium 8.0 L Preliminary micro results at discharge 12/30/20 16:19 Blood Culture - Preliminary Blood Gram Positive Cocci 12/30/20 16:19 Blood Culture - Preliminary Blood Gram Positive Cocci DS: Diagnosis - Discharge Diagnosis (1) Hypotension Status: Acute (2) Pyuria Status: Acute (3) Obesity (BMI 30-39.9) Status: Acute (4) CAD (coronary artery disease) Status: Chronic (5) Diabetes Status: Chronic Discharge Plan - Patient Discharge Instructions ACTIVITY: Continue current activity DIET: continue same diet Patient Instructions: DI for Hypotension - Follow up Plan Follow up with: Bipin Stahl MD [Primary Care Provider] - Disposition: Home, Self-Care Condition at discharge:: Improved Home Medications: Home Medications Medication Instructions Recorded Confirmed Type aspirin 81 mg tablet,delayed 81 mg PO DAILY 04/12/20 12/30/20 History release fluoxetine 40 mg capsule 80 mg PO DAILY
== END 2021-01-01 10:30 | disposition home or self-care (01) ==
LOC: ER 18:33 → 2ND 18:52
PROVIDERS: Admitting Provider Family Medicine; Emergency Provider Emergency Medicine; PCP Emergency Medicine; Visit Provider Emergency Medicine
DX: I95.9 Hypotension, unspecified (principal); I25.10 Atherosclerotic heart disease of native coronary artery without angina pectoris; E11.9 Type 2 diabetes mellitus without complications; I10 Essential (primary) hypertension; G43.909 Migraine, unspecified, not intractable, without status migrainosus; E78.5 Hyperlipidemia, unspecified; Z79.02 Long term (current) use of antithrombotics/antiplatelets; Z79.84 Long term (current) use of oral hypoglycemic drugs; Z20.822 Contact with and (suspected) exposure to COVID-19
CPT/HCPCS: 36415; 70450; 71045; 71275; 74176; 80048; 80053; 81001; 82962; 83605; 84484; 85025; 85651; 86140; 87040; 87077; 87086; 87186; 93005; 96365; 96367; 99285; G0378; J3370; Q9967; U0003

== ENCOUNTER → 2021-01-02 13:52 | Outpatient (CLI) | payer MEDICARE, SELFPAY ==
--- NOTE | 2021-01-02 13:53 | MR_ITS ---
PROCEDURE: MR CERVICAL SPINE WO CON CLINICAL INDICATION: NECK PAIN COMPARISON: No exams were available for comparison TECHNIQUE: Multiplanar, multisequence MRI cervical spine without contrast. FINDINGS: Images are degraded due to motion artifact. Alignment is normal.Multilevel disc desiccation with disc osteophyte complexes noted.Bone marrow is normal in signal without evidence of fracture or marrow replacing lesion.The imaged portion of the posterior fossa is unremarkable.There is minor T2 hyperintensity noted in the cervical spinal cord at C4-5, C5-6 and C6-7 levels, raises the concern for mild edema. There is no significant edema within the cervical spinal cord.No paraspinal soft tissue abnormalities are noted. C2-3: No canal stenosis or neural foraminal narrowing. C3-4: Small disc osteophyte complex without significant canal or foraminal narrowing. C4-5: Broad-based disc on 2 0 fight complex and minor uncovertebral hypertrophic change causes no significant canal or foraminal narrowing. C5-6: Broad-based disc osteophyte complex angle uncovertebral hypertrophic changes causes moderate canal narrowing. There is moderate left and mild right foraminal narrowing. There is minor thecal sac indentation noted. C6-7: Broad-based disc osteophyte complex and uncovertebral hypertrophic change, worse on the left causes moderate to severe left and mild right foraminal narrowing. Thecal sac and spinal cord indentation is noted at this level. C7-T1: No canal stenosis or neural foraminal narrowing. IMPRESSION: Multilevel degenerative changes of the cervical spine, worse at C4-5, and C6-7 levels. Possible mild cord edema, incompletely evaluated due to motion limited study. Dictated by: Marla Pereyra 01/02/2021 16:09 Marla Pereyra in [place] 01/02/2021 16:09
== END ==
PROVIDERS: PCP Emergency Medicine; Visit Provider Clinical Nurse Specialist Family Health
DX: M54.2 Cervicalgia (principal)
CPT/HCPCS: 72141; 76376

== ENCOUNTER 2021-01-06 08:50 | Day surgery (SDC) | payer MEDICARE, SELFPAY ==
[2021-01-06 09:36] VITALS: BP 103/52; PULSE 69; RESP 18; TEMP 36.7; O2SAT 97; BMI 37.5
[2021-01-06 10:54] VITALS: BP 105/66; PULSE 61; RESP 18; O2SAT 97
[2021-01-06 10:55] VITALS: BP 95/55; PULSE 59; RESP 18; O2SAT 97
[2021-01-06 11:10] VITALS: BP 104/50; PULSE 57; RESP 20; O2SAT 97
--- NOTE | 2021-01-06 11:16 | HMH.PMPROC ---
- Procedure Date: 01/06/21 Time: 11:16 Anesthesiologist:: Sunitha Alvarez MD Complications:: None Pre-procedure Diagnosis:: Degenerative disc disease of cervical spine, cervical radiculopathy Post-procedure Diagnosis:: Same Indications for Procedure:: Patient is a very pleasant 60-year-old white female who presents today with chronic neck pain radiating into bilateral lower extremities especially worse on the left side related to the above diagnosis. She has previously trialed and failed conservative treatment including oral pain medication and home stretching program. She has previously undergone lumbar epidural steroid injection past with significant pain relief. She states she has not undergone any cervical epidural steroid injections in the past but she is interested in pursuing this injection if it will help with her pain. Of note, she is on Plavix but has held it for the appropriate time. Plan for today is for the patient to undergo a cervical epidural steroid injection at C7-T1 #1 fluoroscopy today. Procedure Details:: Cervical epidural steroid injection under fluoroscopy Informed consent was obtained and the risks and benefits of the procedure was explained to the patient. The patient was taken to the procedure room placed prone on the procedure table. The neck was prepped using ChloraPrep. The skin and subcutaneous tissues were anesthetized using lidocaine. I placed a 18-gauge epidural needle into the C5-C6 interspace and advanced using [id number] to air and fluoroscopic guidance. After confirmation of needle placement in the epidural space with dye, I injected 1ml of PF normal saline and Depo-Medrol 80 mg. The patient tolerated the procedure well with no complications. Plan and Disposition:: We will follow-up with this patient in 2 weeks. Will reevaluate pain symptoms at that time.
== END 2021-01-06 11:10 | disposition home or self-care (01) ==
LOC: SC.PAINP 08:52
PROVIDERS: PCP Emergency Medicine; Visit Provider Anesthesiology Pain Medicine
DX: M50.10 Cervical disc disorder with radiculopathy, unspecified cervical region (principal); R82.90 Unspecified abnormal findings in urine
CPT/HCPCS: 62321; 76000; 87086; 87088; 87186; J1040; Q9966

== ENCOUNTER → 2021-01-06 17:50 | Outpatient (CLI) | payer MEDICARE, SELFPAY | PROVIDERS: Visit Provider Emergency Medicine | DX: R82.90 Unspecified abnormal findings in urine (principal) | CPT/HCPCS: 87086; 87088; 87186 ==

== ENCOUNTER 2021-01-10 10:00 | Outpatient (CLI) | payer MEDICARE, SELFPAY ==
[2021-01-10 10:43] VITALS: BMI 37.5
--- NOTE | 2021-01-10 10:44 | XR_ITS ---
PROCEDURE: XR CHEST PORTABLE PICC PLAC CLINICAL HISTORY: PICC line placement COMPARISON: CR XR CHEST 2V from 06/01/2020 CR XR CHEST 2V from 09/15/[address] ANGIO CHEST PE PROTOCOL from 12/30/2020 CR XR CHEST PORTABLE from 12/30/2020 FINDINGS: Right upper extremity PICC line has been placed. The tip is in good position in the region of the superior vena cava. The lungs are clear without infiltrates, suspicious nodules, or pleural effusions. There are old left-sided rib fractures. Subchondral lucency and sclerosis noted in the left humeral head and may be due to avascular necrosis. A subchondral rounded lucency noted on the right femoral head and may be due to a subchondral cyst. IMPRESSION: PICC line tip in the region of the superior vena cava Dictated by: Nate Sharma MD 01/10/2021 11:08 Nate Sharma MD in [place] 01/10/2021 11:08
[2021-01-10 11:50] VITALS: BP 90/44; PULSE 68; RESP 20; TEMP 36.9; O2SAT 95
[2021-01-10 12:20] VITALS: BP 86/49; PULSE 68; RESP 20; TEMP 36.9; O2SAT 95
== END 2021-01-10 12:30 | disposition home or self-care (01) ==
LOC: INF 10:43
PROVIDERS: Visit Provider Physician Assistant
DX: N39.0 Urinary tract infection, site not specified (principal); Z16.12 Extended spectrum beta lactamase (ESBL) resistance; B96.20 Unspecified Escherichia coli [E. coli] as the cause of diseases classified elsewhere
CPT/HCPCS: 36569; 71045; 96365; J1335

== ENCOUNTER 2021-01-11 08:53 | Outpatient (CLI) | payer MEDICARE, SELFPAY ==
[2021-01-11 09:18] VITALS: BP 96/56; PULSE 63; RESP 18; TEMP 36.6; O2SAT 96
[2021-01-11 10:05] VITALS: BP 96/56; PULSE 63; RESP 18; TEMP 36.6; O2SAT 96
== END 2021-01-11 10:05 | disposition home or self-care (01) ==
LOC: INF 08:53
PROVIDERS: Visit Provider Physician Assistant
DX: N39.0 Urinary tract infection, site not specified (principal); Z16.12 Extended spectrum beta lactamase (ESBL) resistance; B96.20 Unspecified Escherichia coli [E. coli] as the cause of diseases classified elsewhere
CPT/HCPCS: 96365; J1335

== ENCOUNTER → 2021-01-11 13:20 | Outpatient (POV) | payer MEDICARE, SELFPAY | DX: Z00.00 Encounter for general adult medical examination without abnormal findings (principal) ==

== ENCOUNTER 2021-01-12 08:53 | Outpatient (CLI) | payer MEDICARE, SELFPAY ==
[2021-01-12 09:04] VITALS: BP 98/48; PULSE 74; RESP 18; TEMP 36.7; O2SAT 95
[2021-01-12 09:34] VITALS: BP 97/51; PULSE 78; RESP 18; O2SAT 96
[2021-01-12 09:50] VITALS: BP 100/46; PULSE 78; RESP 18; O2SAT 96
== END 2021-01-12 09:50 | disposition home or self-care (01) ==
LOC: INF 08:53
PROVIDERS: Visit Provider Physician Assistant
DX: N39.0 Urinary tract infection, site not specified (principal); Z16.12 Extended spectrum beta lactamase (ESBL) resistance; B96.20 Unspecified Escherichia coli [E. coli] as the cause of diseases classified elsewhere
CPT/HCPCS: 96365; J1335

== ENCOUNTER 2021-01-13 08:50 | Outpatient (CLI) | payer MEDICARE, SELFPAY ==
[2021-01-13 08:55] VITALS: BMI 37.5
[2021-01-13 09:10] VITALS: BP 87/57; PULSE 77; RESP 18; O2SAT 95
[2021-01-13 09:29] LABS: Chloride 110 mmol/L (98-107); Sodium 141 mmol/L (136-145)
[2021-01-13 09:30] LABS: Potassium 4.2 mmoL/L (3.5-5.1)
[2021-01-13 09:32] LABS: Blood Urea Nitrogen 13 mg/dl (7-17); Creatinine Clearance Estimated 153 mL/min (50-200); Estimated Glomerular Filt Rate 102 ml/min (>60); GFR (African American) 124 ML/MIN (>60)
[2021-01-13 09:33] LABS: Anion Gap 13.2 mEq/L (5-15); Calcium 8.6 mg/dl (8.4-10.2); Carbon Dioxide 22 mmol/L (22.0-30.0); Glucose 74 mg/dl (74-100)
[2021-01-13 09:50] VITALS: BP 94/57; PULSE 78; RESP 16
== END 2021-01-13 10:05 | disposition home or self-care (01) ==
LOC: INF 08:53
PROVIDERS: Visit Provider Physician Assistant
DX: N39.0 Urinary tract infection, site not specified (principal); Z16.12 Extended spectrum beta lactamase (ESBL) resistance; B96.20 Unspecified Escherichia coli [E. coli] as the cause of diseases classified elsewhere
CPT/HCPCS: 80048; 96365; J1335

== ENCOUNTER 2021-01-14 08:59 | Outpatient (CLI) | payer MEDICARE, SELFPAY ==
[2021-01-14 09:42] VITALS: BP 92/55; PULSE 80; RESP 16; O2SAT 93
== END 2021-01-14 09:59 | disposition home or self-care (01) ==
LOC: INF 08:59
PROVIDERS: PCP Physician Assistant; Visit Provider Physician Assistant
DX: N39.0 Urinary tract infection, site not specified (principal); Z16.12 Extended spectrum beta lactamase (ESBL) resistance; B96.20 Unspecified Escherichia coli [E. coli] as the cause of diseases classified elsewhere
CPT/HCPCS: 96365; J1335

== ENCOUNTER 2021-01-15 09:01 | Outpatient (CLI) | payer MEDICARE, SELFPAY ==
[2021-01-15 09:30] VITALS: BP 79/48; PULSE 73; RESP 16; O2SAT 95; BMI 37.5
--- NOTE | 2021-01-15 10:05 | PC.NURSE ---
Pt's BP noted to be low. She is asymptomatic. Denies dizziness/lightheadedness and denies being tired. Skin is warm, dry and pink. She states her BP always runs that low and it is normal for her.
== END 2021-01-15 10:10 | disposition home or self-care (01) ==
LOC: INF 09:01
PROVIDERS: PCP Physician Assistant; Visit Provider Physician Assistant
DX: N39.0 Urinary tract infection, site not specified (principal); Z16.12 Extended spectrum beta lactamase (ESBL) resistance; B96.20 Unspecified Escherichia coli [E. coli] as the cause of diseases classified elsewhere
CPT/HCPCS: 96365; J1335

== ENCOUNTER 2021-01-16 09:10 | Outpatient (CLI) | payer MEDICARE, SELFPAY ==
[2021-01-16 09:16] VITALS: BP 92/48; PULSE 74; RESP 18; TEMP 36.6; O2SAT 98
[2021-01-16 10:05] VITALS: BP 95/50; PULSE 69; RESP 16; TEMP 36.6; O2SAT 98
== END 2021-01-16 10:10 | disposition home or self-care (01) ==
LOC: INF 09:10
PROVIDERS: Visit Provider Physician Assistant
DX: N39.0 Urinary tract infection, site not specified (principal); Z16.12 Extended spectrum beta lactamase (ESBL) resistance; B96.20 Unspecified Escherichia coli [E. coli] as the cause of diseases classified elsewhere
CPT/HCPCS: 96365; J1335

== ENCOUNTER 2021-01-17 09:32 | Outpatient (CLI) | payer MEDICARE, SELFPAY ==
[2021-01-17 09:55] VITALS: BP 83/51; PULSE 68; RESP 20; TEMP 35.7; O2SAT 95
[2021-01-17 10:25] VITALS: BP 82/49; PULSE 74; RESP 20; TEMP 36.9; O2SAT 95
== END 2021-01-17 10:25 | disposition home or self-care (01) ==
LOC: INF 09:32
PROVIDERS: Visit Provider Physician Assistant
DX: N39.0 Urinary tract infection, site not specified (principal); Z16.12 Extended spectrum beta lactamase (ESBL) resistance; B96.20 Unspecified Escherichia coli [E. coli] as the cause of diseases classified elsewhere
CPT/HCPCS: 96365; J1335

== ENCOUNTER 2021-01-18 09:05 | Outpatient (CLI) | payer MEDICARE, SELFPAY ==
[2021-01-18 09:19] VITALS: BP 90/46; PULSE 72; RESP 18; TEMP 36.4; O2SAT 96
[2021-01-18 10:00] VITALS: BP 88/50; PULSE 70; RESP 18; O2SAT 96
== END 2021-01-18 10:00 | disposition home or self-care (01) ==
LOC: INF 09:05
PROVIDERS: Visit Provider Physician Assistant
DX: N39.0 Urinary tract infection, site not specified (principal); Z16.12 Extended spectrum beta lactamase (ESBL) resistance; B96.20 Unspecified Escherichia coli [E. coli] as the cause of diseases classified elsewhere
CPT/HCPCS: 96365; J1335

== ENCOUNTER 2021-01-19 08:53 | Outpatient (CLI) | payer MEDICARE, SELFPAY ==
[2021-01-19 09:10] VITALS: BP 100/45; PULSE 75; RESP 18; TEMP 36.4; O2SAT 96
[2021-01-19 09:52] VITALS: BP 98/51; PULSE 72; RESP 16; TEMP 36.4; O2SAT 96
== END 2021-01-19 09:55 | disposition home or self-care (01) ==
LOC: INF 08:53
PROVIDERS: Visit Provider Physician Assistant
DX: N39.0 Urinary tract infection, site not specified (principal); Z16.12 Extended spectrum beta lactamase (ESBL) resistance; B96.20 Unspecified Escherichia coli [E. coli] as the cause of diseases classified elsewhere
CPT/HCPCS: 96365; J1335

== ENCOUNTER → 2021-01-20 10:47 | Outpatient (CLI) | payer MEDICARE, SELFPAY | PROVIDERS: Visit Provider Physician Assistant | DX: N39.0 Urinary tract infection, site not specified (principal) ==

== ENCOUNTER → 2021-01-21 09:35 | Outpatient (CLI) | payer MEDICARE, SELFPAY ==
[2021-01-21 09:39] LABS: Microscopic, Urine URINE MICROSCOPIC (MICROSCOPIC)
[2021-01-21 10:10] LABS: Appearance,Urine SL CLOUDY (Clear); Bilirubin,Urine Negative (Negative); Blood, Urine Negative (Negative); Color,Urine YELLOW (Yellow); Glucose,Urine (UA) Negative (Negative); Ketones,Urine Negative (Negative); Leukocyte Esterase,Urine TRACE (Negative); Nitrate,Urine Negative (Negative); PH,Urine 5.5 (5.0-8.5); Protein,Urine Negative (Negative); Urobilinogen,Urine 0.2 EU/dl (0.2)
[2021-01-21 11:20] LABS: Bacteria,Urine Trace /lpf; RBC,Urine Occasional #/hpf (0-3)
== END ==
PROVIDERS: Visit Provider Physician Assistant
DX: A49.8 Other bacterial infections of unspecified site (principal); Z16.12 Extended spectrum beta lactamase (ESBL) resistance; R82.81 Pyuria
CPT/HCPCS: 81001; 87086

== ENCOUNTER 2021-01-23 15:30 | Outpatient (CLI) | payer MEDICARE, SELFPAY | END 2021-01-23 15:53 | disposition home or self-care (01) | LOC: INF 15:49 | PROVIDERS: Visit Provider Physician Assistant | DX: A49.8 Other bacterial infections of unspecified site (principal); R82.81 Pyuria; Z16.12 Extended spectrum beta lactamase (ESBL) resistance; Z45.2 Encounter for adjustment and management of vascular access device | CPT/HCPCS: 87086; G0463 ==

== ENCOUNTER → 2021-01-27 09:48 | Outpatient (CLI) | payer MEDICARE, OTHER, SELFPAY | PROVIDERS: Visit Provider Internal Medicine Gastroenterology | DX: Z01.812 Encounter for preprocedural laboratory examination (principal); Z11.52 Encounter for screening for COVID-19; Z13.810 Encounter for screening for upper gastrointestinal disorder | CPT/HCPCS: U0003 ==

== ENCOUNTER 2021-01-30 07:34 | Day surgery (SDC) | payer MEDICARE, SELFPAY ==
[2021-01-26 14:02] VITALS: BMI 37.5
[2021-01-30 07:55] VITALS: BP 95/60; PULSE 81; RESP 20; TEMP 36.6; O2SAT 96
[2021-01-30 08:10] LABS: POC Glucose,Bedside 133 (70-110)
[2021-01-30 08:34] VITALS: O2SAT 98
--- NOTE | 2021-01-30 08:35 | P.PN_ITS ---
[facility] Anesthesia Checklist - Patient Identification Patient Identification: Arm Band - Structural Data Admitted From: Home Planned Operative Procedure/s: egd Consent for Planned Operative Procedure(s) Verified: Yes Verified Documents: Surgical Consent, History and Physical - NPO Status Verified Time NPO: 00:00 - Additional verifications Anesthesia Reactions: No Hx Blood Transfusions: No Blood Transfusion Reaction: No - Airway Assessment C-Spine Mobility Assessed: Yes (mp2) TMJ Mobility Assessed: Yes Dentition: Poor Dentition - Neurological Assessment Level of Consciousness: Awake, Alert - Anesthesia Plan Anesthesia Risk discussed: Yes Anesthesia Plan: Verified ASA Class: III Anesthesia Type: MAC [facility] History I have reviewed the patient's past medical history: Yes Medical History: Reports:: Anxiety, Arrhythmia, Asthma, Atherosclerotic Heart Disease, Coronary Artery Disease, Depression, Diabetes Mellitus Type 2, Gastroesophageal Reflux Disease(GERD), Heart Murmur, Hyperlipidemia, Hypertension, Migraine Denies:: Cancer, Diabetes Mellitus Type 1, Internal Pacemaker, MRSA, Seizures *Have you ever received a pneumonia vaccine?: Yes *Have you received a flu vaccine this season?: No Other Medical History: Reports: Anemia, Arthritis, Fibromyalgia, Acquired Immunodeficiency Syndrome (AIDS), Hypothyroidism, Other. Denies: Blood Transfusion Reaction Anesthesia experience/problems:: nac Laterality Cases: Bilateral: Arthroscopy Knee, Other Other Surgeries: Yes: Cardiac Catheterization, Cholecystectomy, Colonoscopy, Coronary Stent, Dilation and Curettage, EGD, Hysterectomy-Total, Hysterectomy- Partial, Tubal Ligation, Other (chest wall biopsy). No: Pacemaker Amputation: No Fractures: Yes - *Social History Last grade of school completed: Advanced degree Smoking Status: Never smoker # Packs/Day (cigarettes): 1 Alcohol Intake: never Substance Use Type: denies use *Occupational Status:: disabled Housing: house Household Members: spouse *Travel in the last 8 weeks: None - Psychiatric History Pschychiatric History:: Reports:: Anxiety, Depression Family Hx:: Cancer, Diabetes, Heart Attack
--- NOTE | 2021-01-30 08:39 | P.PCN_ITS ---
[facility] Procedure Note Procedure Note:: Upper Endoscopy Procedure Report: Esophagogastroduodenoscopy with cold biopsies and TTS balloon dilation Endoscopost: Rakesh Wade II, MD Referring Physician: KEVIN Lu Date of Procedure: January 30, 2021 Equipment: Olympus GIF 190 standard upper endoscope Sedation: MAC sedation Indications: Mrs. Leone is a 60-year-old female who has noted dental/tooth enamel erosion and decay which she feels is related to chronic GERD. The patient does have significant long-term reflux, indigestion and dyspepsia. She reports heartburn, belching and some retrosternal chest pain and pressure. She has had cardiac evaluation and reports normal cardiac stress test and echocardiogram. She does report epigastric abdominal pain with some nausea, early satiety and bloating. She reports some intermittent dysphagia and globus sensation. The patient has had chronic IBS with diarrhea predominant symptoms (sometimes alternating with constipation). Her last upper endoscopy was more than a decade ago. The patient has had former Bertha-en-Y gastric bypass. She does take omeprazole. The patient also has a history of iron deficiency anemia. She has been on Zofran. She also has had chronic pain and takes tramadol and hydrocodone (as needed). Procedure: Prior to the procedure, a history and physical exam was performed, and patient's medications and allergies were reviewed. The risks, benefits and alternatives of the sedation and procedure were discussed with the patient. All questions were answered and informed consent was obtained. The patient was brought to the procedure room. Patient identification and proposed procedure were verified by the physician and the nurse. The patient was placed in a left lateral decubitus position and the scope was passed under direct vision. Throughout the procedure, the patient's blood pressure, pulse, and oxygen saturations were monitored continuously. The upper GI endoscopy was accomplished without difficulty. The patient tolerated the procedure well. Findings: The scope was passed directly into the upper esophagus and advanced to the afferent and efferent limbs of jejunum. The afferent stump limb was normal. The remainder of the efferent jejunum was normal and biopsies were obtained to rule out celiac disease. The scope was withdrawn through a normal stomal anastomosis that was widely patent into the gastric pouch. There was gastritis (reactive gastropathy) of the gastric pouch with retained solid food content suggestive of some dysmotility. There was no hiatal hernia. Biopsies were obtained from the pouch. The scope was then withdrawn into the esophagus. There was a serrated Z-line but no evidence of Zacarias's esophagus, Schatzki's ring or reflux esophagitis. Biopsies were taken at the GE junction. The entire esophagus was dilated to 60 Vietnamese/20 mm with a TTS hydrostatic balloon. There were tertiary contractions consistent with esophageal dysmotility. There was some resistance at the cricopharyngeus. The remainder of the esophageal mucosa was normal. Impression: 1. Cricopharyngeal spasm 2. Nonerosive GERD with moderate esophageal dysmotility 3. Bertha-en-Y gastric bypass anatomy with normal gastrojejunal anastomosis (widely patent) 4. Reactive gastropathy of gastric pouch Plan: I will follow-up the biopsies. The patient does have functional GERD. We will discuss dietary measures and treatment options.
[2021-01-30 08:55] VITALS: BP 91/50; PULSE 79; RESP 18; TEMP 36.2; O2SAT 95
[2021-01-30 09:05] VITALS: BP 89/66; PULSE 76; RESP 18; O2SAT 96
[2021-01-30 09:10] VITALS: BP 93/50; PULSE 76; RESP 18; O2SAT 98
[2021-01-30 09:32] VITALS: BP 99/64; PULSE 77; RESP 18; O2SAT 96
== END 2021-01-30 09:40 | disposition home or self-care (01) ==
LOC: OUTP 07:37
PROVIDERS: PCP Emergency Medicine; Visit Provider Internal Medicine Gastroenterology
PROC: 0DJ08ZZ Inspection of Upper Intestinal Tract, Via Natural or Artificial Opening Endoscopic (ICD-10-PCS; CPT 43235; principal; 2021-01-30 08:30)
DX: J39.2 Other diseases of pharynx (principal); K21.9 Gastro-esophageal reflux disease without esophagitis; K22.4 Dyskinesia of esophagus; K31.9 Disease of stomach and duodenum, unspecified; Z98.84 Bariatric surgery status; D50.9 Iron deficiency anemia, unspecified; Z79.899 Other long term (current) drug therapy; F41.9 Anxiety disorder, unspecified; J45.909 Unspecified asthma, uncomplicated; I25.10 Atherosclerotic heart disease of native coronary artery without angina pectoris; I10 Essential (primary) hypertension; E11.9 Type 2 diabetes mellitus without complications; F32.9 Major depressive disorder, single episode, unspecified; E78.5 Hyperlipidemia, unspecified
CPT/HCPCS: 43239; 43249; 82962; 88305; C1726

== ENCOUNTER → 2021-02-02 10:14 | Outpatient (CLI) | payer MEDICARE, SELFPAY ==
--- NOTE | 2021-02-02 10:18 | CA_ITS ---
APPROVED REPORT Bilateral Lower Extremity Venous Study for DVT. Occupational Health Manager: TAYLER Indications swelling in LLE x 3 days, smoker Vein Imaging CFV (L): compressive, spontaneous, phasic, augmentation SFJ (L): compressive, spontaneous, phasic, augmentation FEM (L): compressive, spontaneous, phasic, augmentation POP (L): compressive, spontaneous, phasic, augmentation DFV (L): compressive, spontaneous, phasic, augmentation PTV (L): compressive, spontaneous, phasic, augmentation GSV (L): compressive, spontaneous, phasic, augmentation SSV (L): compressive, spontaneous, phasic, augmentation Peroneals (L):compressive, spontaneous, phasic, augmentation GAS (L): compressive, spontaneous, phasic, augmentation Findings Color flow duplex demonstrates no evidence of DVT of the following left lower extremity Veins:Common Femoral Vein, Femoral Vein, Popliteal Vein, Posterior Tibial Veins, Peroneal Veins, Deep Femoral Vein. Negative for DVT. Conclusion Negative for DVT. Electronically signed by : Nate Sharma MD 02/02/2021 15:05:55
[2021-02-02 10:29] LABS: Microscopic, Urine URINE MICROSCOPIC (MICROSCOPIC)
[2021-02-02 11:06] LABS: Appearance,Urine CLEAR (Clear); Bilirubin,Urine Negative (Negative); Blood, Urine Negative (Negative); Color,Urine YELLOW (Yellow); Glucose,Urine (UA) Negative (Negative); Ketones,Urine Negative (Negative); Leukocyte Esterase,Urine TRACE (Negative); Nitrate,Urine Negative (Negative); PH,Urine 6.5 (5.0-8.5); Protein,Urine Negative (Negative); Urobilinogen,Urine 0.2 EU/dl (0.2)
[2021-02-02 11:17] LABS: Anion Gap 15.5 mEq/L (5-15); Blood Urea Nitrogen 14 mg/dl (7-17); Calcium 8.9 mg/dl (8.4-10.2); Carbon Dioxide 25 mmol/L (22.0-30.0); Chloride 104 mmol/L (98-107); Estimated Glomerular Filt Rate 86 ml/min (>60); GFR (African American) 104 ML/MIN (>60); Glucose 110 mg/dl (74-100); Potassium 4.5 mmoL/L (3.5-5.1); Sodium 140 mmol/L (136-145)
[2021-02-02 19:26] LABS: Mucus,Urine Trace /lpf; Squamous Epithelial Cell,Urine Occasional #/hpf (0-5)
== END ==
PROVIDERS: PCP Emergency Medicine; Visit Provider Internal Medicine Cardiovascular Disease
DX: M79.89 Other specified soft tissue disorders (principal); R06.00 Dyspnea, unspecified; R07.89 Other chest pain
CPT/HCPCS: 36415; 80048; 81001; 93971

== ENCOUNTER → 2021-02-03 17:04 | Outpatient (CLI) | payer MEDICARE, SELFPAY | PROVIDERS: Visit Provider Nurse Practitioner Family | DX: E11.9 Type 2 diabetes mellitus without complications (principal); R44.3 Hallucinations, unspecified; R82.81 Pyuria; Z79.84 Long term (current) use of oral hypoglycemic drugs | CPT/HCPCS: 87086; 87088; 87186 ==

== ENCOUNTER 2021-02-04 09:56 | Emergency (ER) | payer MEDICARE, SELFPAY ==
[2021-02-04 10:00] VITALS: BP 93/57; PULSE 73; RESP 18; TEMP 36.8; O2SAT 95; BMI 37.5
[2021-02-04 10:05] VITALS: BP 93/57; PULSE 73; RESP 18; O2SAT 95; BMI 37.5
--- NOTE | 2021-02-04 10:52 | XR_ITS ---
PROCEDURE INFORMATION: Exam: XR Lumbosacral Spine Exam date and time: 02/04/2021 10:52 AM Age: 60 years old Clinical indication: Low back pain; Patient HX: Pain in lower spine , PT states that she frequently has back pain when she has had utis, no previous surgery, no recent injury TECHNIQUE: Imaging protocol: XR of the lumbosacral spine. Views: 2 or 3 views. COMPARISON: MR LUMBAR SPINE WO CON 08/10/2020 9:14 AM FINDINGS: Bones/joints: Normal. No acute fracture. Normal alignment. Soft tissues: Unremarkable. IMPRESSION: No acute findings.
--- NOTE | 2021-02-04 11:44 | HMH.EDUTC ---
[facility] Disposition Clinical Impression: Low back pain Qualifiers: Chronicity: unspecified Back pain laterality: right Sciatica presence: without sciatica Qualified Code(s): M54.5 - Low back pain Disposition: Home, Self-Care Condition on Discharge: Good Instructions: Low Back Pain, DI for Low Back Pain Additional Instructions: Continue taking antibiotics as prescribed Take your Muscle relaxers and pain medication as prescribe May try OTC patches to help with pain like [place] or Biofreeze Heating pad may help FOllow up with your Family Doctor on Saturday if no improvement or any any worsening of symptoms Straight to ER if any life threatening symptoms Referrals: Bipin Stahl MD [Primary Care Provider] - As needed Time of Disposition: 12:02 Medical Decision Making - [place] Inquiry Pt receiving controlled substance: No [place] was queried for this patient: No Vital Signs: 02/04/21 10:00 02/04/21 10:05 02/04/21 11:57 Temperature 98.3 F 98.3 F Temperature Source Oral Pulse Rate 73 Pulse Rate [Left Radial] 73 73 Respiratory Rate 18 18 18 Blood Pressure 93/57 L Blood Pressure [Right Arm] 93/57 L 93/57 L Blood Pressure Mean [Right Arm] 69 69 Blood Pressure Source [Right Arm] Automatic Cuff Automatic Cuff Blood Pressure Position [Right Arm] Sitting Sitting 02 Sat by Pulse Oximetry 95 95 Oxygen Delivery Method Room Air Room Air - Radiology Data #1 Image(s): L-Spine Image Reviewed: Yes I have reviewed radiologist's interpretation IMPRESSION: No acute findings. [facility] HPI - General Stated complaint: back pain Time Seen by Provider: 02/04/21 11:44 Mode of Arrival: Ambulatory Source of Information: Patient Limitations: No Limitations Description of Symptoms (Recalled from Triage Doc. by RN): c/o right back pain that hurts more when she stands for a while and when sitting - History of Present Illness Provider Complaint: Patient state that she has history of back pain and currently being treated for UTI State that for the last couple of days she has been having pain in her right lower back area that is worse when she sits or stands States that she didnt feel like it was coming from her UTI so she came in to get checked - Related Data Home Medications Medication Instructions Recorded Confirmed aspirin 81 mg tablet,delayed 81 mg PO DAILY 04/12/20 02/03/21 release Albuterol Sulfate [Albuterol 2 puffs IH Q6HP PRN 10/14/20 02/03/21 Sulfate Hfa] Azelastine HCl [Azelastine Nasal 1 spray INTRANASAL BID 10/14/20 02/03/21 [place] 30mL Bottle] Cetirizine HCl 10 mg PO DAILY 10/14/20 02/03/21 Fluticasone/Salmeterol [Advair 1 puff IH BID 10/14/20 02/03/21 100/50mcg diskus] Montelukast Sodium [Singulair] 10 mg PO HS 10/14/20 02/03/21 ARIPiprazole [Aripiprazole] 5 mg PO DAILY 12/30/20 02/03/21 Cholecalciferol (Vitamin D3) 25 mcg PO DAILY 12/30/20 02/03/21 [Vitamin D3 1,000 Unit Tab] Clopidogrel Bisulfate [Plavix] 75 mg PO DAILY 12/30/20 02/03/21 Ergocalciferol (Vitamin D2) 50,000 units PO WEEKLY 12/30/20 02/03/21 [Drisdol] Isosorbide Mononitrate [Isosorbide 30 mg PO DAILY 12/30/20 02/03/21 Mononitrate ER] Primidone 50 mg PO BID 12/30/20 02/03/21 Ranolazine [Ranolazine ER] 500 mg PO BID 12/30/20 02/03/21 Rimegepant Sulfate [Nurtec Odt] 75 mg PO NEEDED PRN 12/30/20 02/03/21 Spironolactone 50 mg PO DAILY 12/30/20 02/03/21 Topiramate 200 mg PO HS 12/30/20 02/03/21 Trazodone HCl 100 mg PO HS 12/30/20 02/03/21 lisinopriL [Lisinopril 2.5mg Tab] 2.5 mg PO DAILY 12/30/20 02/03/21 Alendronate Sodium [Fosamax 70mg 70 mg PO WEEKLY 01/11/21 02/03/21 Tablet] Fluticasone Propionate 1 spray .ROUTE DAILY 01/12/21 02/03/21 Cyclobenzaprine HCl 5 mg PO NEEDED PRN 01/18/21 02/03/21 [Cyclobenzaprine 5mg Tab*] Fluconazole [Diflucan 100mg tablet] 100 mg PO DAILY 01/18/21 02/03/21 Dicyclomine HCl [Bentyl 10mg 10 mg PO QID 01/26/21 02/03/21 capsule] Mirabegron [Myrbetriq] 50 mg PO DAILY
[2021-02-04 11:57] VITALS: BP 93/57; PULSE 73; RESP 18; TEMP 36.8; O2SAT 95
== END 2021-02-04 12:06 | disposition home or self-care (01) ==
PROVIDERS: Emergency Provider Nurse Practitioner; PCP Emergency Medicine
DX: M54.5 Low back pain (principal); F41.8 Other specified anxiety disorders; I25.10 Atherosclerotic heart disease of native coronary artery without angina pectoris; E11.9 Type 2 diabetes mellitus without complications; K21.9 Gastro-esophageal reflux disease without esophagitis; I10 Essential (primary) hypertension; E78.5 Hyperlipidemia, unspecified
CPT/HCPCS: G0463; 72100; 99202

== ENCOUNTER → 2021-02-08 08:55 | Outpatient (CLI) | payer MEDICARE, SELFPAY ==
[2021-02-08 08:58] LABS: Microscopic, Urine URINE MICROSCOPIC (MICROSCOPIC)
--- NOTE | 2021-02-08 09:11 | XR_ITS ---
PROCEDURE: XR KUB CLINICAL INDICATION: back pain COMPARISON: CT CT ABDOMEN PELVIS WO CON from 12/30/2020 FINDINGS: There is mild amount of retained colonic feces. Suture line is present in the left upper quadrant medially and there are surgical clips in the right upper quadrant. No evidence of bowel obstruction abnormal calcifications or acute bony anomalies. IMPRESSION: As above, no acute finding Dictated by: Nate Sharma MD 02/08/2021 12:20 Nate Sharma MD in OV 02/08/2021 12:20
[2021-02-08 09:44] LABS: Appearance,Urine SL CLOUDY (Clear); Bilirubin,Urine Negative (Negative); Blood, Urine Negative (Negative); Color,Urine YELLOW (Yellow); Glucose,Urine (UA) Negative (Negative); Ketones,Urine Negative (Negative); Leukocyte Esterase,Urine 2+ (Negative); Nitrate,Urine Negative (Negative); PH,Urine 7.5 (5.0-8.5); Protein,Urine Negative (Negative); Specific Gravity, Urine 1.015 (1.005-1.030); Urobilinogen,Urine 0.2 EU/dl (0.2)
[2021-02-08 09:55] LABS: Bacteria,Urine 1+ /lpf; RBC,Urine Occasional #/hpf (0-3); Squamous Epithelial Cell,Urine Occasional #/hpf (0-5)
== END ==
PROVIDERS: Visit Provider Specialist
DX: M54.5 Low back pain (principal); R82.90 Unspecified abnormal findings in urine
CPT/HCPCS: 74018; 81001; 87086; 87088; 87186

== ENCOUNTER → 2021-02-09 08:24 | Outpatient (POV) | payer MEDICARE, SELFPAY ==
[2021-02-09 09:08] VITALS: BP 109/61; PULSE 80; RESP 18; O2SAT 97; BMI 36.6
--- NOTE | 2021-02-09 09:42 | HMH.PAINSOAP ---
[facility] Pain Management SOAP Note Subjective:: Patient is a 60-year-old white female who presents today for follow-up. The patient is being treated for degenerative disc disease cervical spine with cervical radiculopathy symptoms. Patient recently had a cervical epidural steroid injection at C7-T1 number 1 injection. She got excellent relief. Her pain was primarily on the right side. Her pain is now on the left side. She says it is the left side of the neck and the left shoulder. The patient does say, however, her worst pain is mid back at this time. The pain is worse with any type of movement. The patient does have large breasts which may be contributing to her mid back pain. We did discuss this. The patient is on Plavix therapy. She has been applying heat to the area which gives her about 20 to 30% relief. She is also tried home stretching and physical therapy prescribed 6 weeks in the past. She cannot take anti-inflammatories due to Plavix. Her pain is a 7 out of 10 today. Review of Systems General: No recent weight changes, no fever, no sleep disturbances Respiratory: No cough, no shortness of air, no recurring pulmonary infections Cardiovascular/peripheral vascular: No chest pain, no palpitations, no edema, no shortness of breath Gastrointestinal: No new onset incontinence, normal bowel movements reported Genitourinary: No new onset incontinence Musculoskeletal: Left side neck pain, left shoulder pain, mid back pain Psychiatric: [Normal mood/affect] Neurological: [Denies weakness in extremities], [denies balance issues] Objective:: Physical exam General: Alert and oriented x3, no acute distress, pleasant and cooperative, [on room air] Lungs: Respirations even and unlabored, symmetrical chest expansion Eyes: PERRL Musculoskeletal: Flexion and extension of cervical and thoracic [spine] somewhat guarded secondary to pain, strength in upper and lower extremities [5/5], normal gait noted Neurological: Speech clear, [medical assistant internal 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 She is on Plavix and will need to hold the medication prior to the injection. Following this injection she may need to be scheduled for repeat cervical epidural steroid injection at C7-T1 area which would be her number 2 injection. She did get great relief on the right side, however, her pain has started to return on the left side. She will continue with home stretching and heat therapy to the area. Risks and benefits of the procedure have been explained to the patient. Patient would like to proceed with the procedure. Possible side effects of corticosteroids have been discussed with the patient. Patient has been instructed to contact the clinic with any concerns before the next appointment. Dr. Schmitt has reviewed this note and agrees with this plan of care. This note was dictated using voice recognition software and make contain errors or omissions. [facility] History I have reviewed the patient's past medical history: Yes Medical History: Reports:: Anxiety, Arrhythmia, Asthma, Atherosclerotic Heart Disease, Cancer, Coronary Artery Disease, Depression, Diabetes Mellitus Type 2, Gastroesophageal Reflux Disease(GERD), Heart Murmur, Hyperlipidemia, Hypertension, Migraine Denies:: Diabetes Mellitus Type 1, Internal Pacemaker, MRSA, Seizures *Have you ever received a pneumonia vaccine?: Yes *Have you received a flu vaccine this season?: No Other Medical History: Reports: Anemia, Arthritis, Fibromyalgia, Acquired Immunodeficiency Syndrome (AIDS), Hypothyroidism, Other. Denies: Blood Transfusion Reaction Laterality Cases: Bilateral: Arthroscopy Knee, Other Other Surgeries: Yes: Cardiac Catheterization, Cholecystectomy, Colonoscopy, Coronary Stent, Dilation and Curettage, EGD, Hysterectomy-Total, Hysterect
== END ==
PROVIDERS: PCP Emergency Medicine; Visit Provider Clinical Nurse Specialist Family Health
DX: M50.10 Cervical disc disorder with radiculopathy, unspecified cervical region (principal); M51.14 Intervertebral disc disorders with radiculopathy, thoracic region
CPT/HCPCS: 99212; G0463

== ENCOUNTER → 2021-02-13 19:14 | Outpatient (CLI) | payer MEDICARE, SELFPAY | PROVIDERS: PCP Emergency Medicine; Visit Provider Emergency Medicine | DX: R82.90 Unspecified abnormal findings in urine (principal) | CPT/HCPCS: 87086 ==

== ENCOUNTER → 2021-02-27 18:03 | Outpatient (CLI) | payer MEDICARE, SELFPAY | PROVIDERS: Visit Provider Emergency Medicine | DX: R82.90 Unspecified abnormal findings in urine (principal) | CPT/HCPCS: 87086; 87088; 87186 ==

== ENCOUNTER → 2021-03-04 10:08 | Outpatient (CLI) | payer MEDICARE, SELFPAY ==
[2021-03-04 11:01] LABS: Basophils # 0.1 K/mm3 (0-0.2); Basophils % 0.6 % (0.1-2.0); Eosinophils # 0.3 K/mm3 (0.0-0.4); Hematocrit 41.8 % (37.0-47.0); Lymphocytes # 2.1 K/mm3 (0.7-4.5); Lymphocytes % 24.6 % (10-50); Mean Corpuscular Hemoglobin 29.9 pg (27.0-31.2); Mean Corpuscular Volume 96.2 fl (81-99); Monocytes # 0.4 K/mm3 (0.1-1.0); Monocytes % 4.9 % (1.7-9.3); Neutrophils # 5.7 K/mm3 (1.8-7.8); Neutrophils % 66.9 % (37.0-80.0); Platelet Count 267 K/mm3 (142-424); Red Blood Count 4.35 M/mm3 (4.20-5.40); Red Cell Distribution Width 13.1 % (11.5-17.5); White Blood Count 8.6 K/mm3 (4.8-10.8)
[2021-03-04 12:10] LABS: Chloride 109 mmol/L (98-107); Potassium 4.5 mmoL/L (3.5-5.1)
[2021-03-04 12:11] LABS: Sodium 140 mmol/L (136-145)
[2021-03-04 12:13] LABS: Blood Urea Nitrogen 10 mg/dl (7-17); Estimated Glomerular Filt Rate 102 ml/min (>60); GFR (African American) 124 ML/MIN (>60)
[2021-03-04 12:14] LABS: Anion Gap 11.5 mEq/L (5-15); Calcium 8.8 mg/dl (8.4-10.2); Carbon Dioxide 24 mmol/L (22.0-30.0); Glucose 101 mg/dl (74-100)
== END ==
PROVIDERS: Visit Provider Surgery
DX: D17.1 Benign lipomatous neoplasm of skin and subcutaneous tissue of trunk (principal); J32.9 Chronic sinusitis, unspecified; Z01.812 Encounter for preprocedural laboratory examination; Z20.822 Contact with and (suspected) exposure to COVID-19
CPT/HCPCS: 36415; 80048; 85025; C9803; U0003; U0005

== ENCOUNTER 2021-03-07 06:00 | Day surgery (SDC) | payer MEDICARE, SELFPAY ==
[2021-03-03 13:39] VITALS: BMI 36.3
[2021-03-07] VITALS (9 sets, daily range): BP systolic 85–118; BP diastolic 47–79; PULSE 71–81; RESP 15–20; TEMP 36.4–36.6; O2SAT 92–97
[2021-03-07 06:32] LABS: POC Glucose,Bedside 118 (70-110)
--- NOTE | 2021-03-07 07:57 | P.OP_ITS ---
Date of procedure: 03/07/21 Pre-op Diagnosis:: Lipoma on back Post-op Diagnosis:: Same Procedure performed:: Excision of lipoma, superficial, from the mid back (excisional length approximately 4 cm) with intermediate complexity closure Surgeon:: Randy Rodgers MD SYSTEMATIC THEOLOGY PROFESSOR:: Other Anesthesia: LMA Estimated blood loss (mL): 5 Clinical Note:: Patient is a 60-year-old female who presents for excision of lipoma on her mid back. She states that this may have been present for up to about a year at this point. I had seen her initially and this appeared to be consistent with a benign lipoma. It seemed to be asymptomatic at that time. I had her undergo ultrasound which revealed findings consistent with lipoma. Plan was for 6-month follow-up. At this point she does state that she has some mid thoracic back pain in the general region of this lesion. Patient was with the understanding that excision of this may not help her back pain but she desired excision nonetheless. She was scheduled for surgical excision Operative findings:: Consistent with benign lobulated subcutaneous lipoma. Operative note:: Consent was obtained. Patient was taken to the operating room. General anesthesia was induced. She was positioned in lateral decubitus position. The area was prepped and draped in the standard surgical fashion. Skin was marked with a skin marker for planned transverse incision overlying palpable lipoma. Skin incision was made. Dissection was carried down through superficial subcutaneous tissues. Well-circumscribed fatty tissue was encountered consistent with lipoma. This was dissected free from surrounding tissues using some blunt dissection with limited use of electrocautery. It was excised in its entirety and sent off as a specimen. Hemostasis was achieved with electrocautery. Local anesthetic was infiltrated. Deep dermal tissues were closed with running 3-0 Vicryl. Skin was closed with 4-0 Monocryl in a running subcuticular fashion. Steri-Strips and dressing was applied. Condition: stable Disposition: PACU Specimens:: Lipoma Complications:: None immediately apparent
--- NOTE | 2021-03-07 08:09 | P.PN_ITS ---
[facility] Anesthesia Checklist - Patient Identification Patient Identification: Arm Band, Verbal (Name & ) - Structural Data Admitted From: Home Planned Operative Procedure/s: ex. lipoma Consent for Planned Operative Procedure(s) Verified: Yes Verified Documents: History and Physical - NPO Status Verified Time NPO: 00:00 - Additional verifications Patient : No Anesthesia Reactions: No Hx Blood Transfusions: No Blood Transfusion Reaction: No Cephalosporin Allergy: No Previous Colonoscopy: No - Cardiovascular Assessment Heart Sounds: S1 & S2 Pulse Strength: Baseline Pulse Rhythm: Regular Peripheral Edema: No - Airway Assessment C-Spine Mobility Assessed: Yes TMJ Mobility Assessed: Yes Dentition: Good Dentition - Neurological Assessment Level of Consciousness: Awake, Alert, Appropriate Hx Seizures: No Numbness or tingling in extremities: No - Anesthesia Plan Anesthesia Risk discussed: Yes Anesthesia Plan: Verified ASA Class: III Anesthesia Type: General [facility] History I have reviewed the patient's past medical history: Yes Medical History: Reports:: Anxiety, Arrhythmia, Asthma, Atherosclerotic Heart Disease, Cancer, Coronary Artery Disease, Depression, Diabetes Mellitus Type 2, Gastroesophageal Reflux Disease(GERD), Heart Murmur, Hyperlipidemia, Hypertension, Migraine, Urinary Tract Infection Denies:: Diabetes Mellitus Type 1, Internal Pacemaker, MRSA, Seizures *Have you ever received a pneumonia vaccine?: Yes *Have you received a flu vaccine this season?: No Other Medical History: Reports: Anemia, Arthritis, Fibromyalgia, Acquired Immunodeficiency Syndrome (AIDS), Hypothyroidism, Other. Denies: Blood Transfusion Reaction Anesthesia experience/problems:: none Laterality Cases: Bilateral: Arthroscopy Knee, Other Other Surgeries: Yes: No Previous Surgery, Cardiac Catheterization, Cholecystectomy, Colonoscopy, Coronary Stent, Dilation and Curettage, EGD, Hysterectomy-Total, Hysterectomy-Partial, Tubal Ligation, Other (chest wall biopsy). No: Pacemaker Amputation: No Fractures: Yes - *Social History Last grade of school completed: Advanced degree Smoking Status: Never smoker # Packs/Day (cigarettes): 1 Alcohol Intake: former Substance Use Type: denies use *Occupational Status:: disabled Housing: house Household Members: family *Travel in the last 8 weeks: None - Psychiatric History Pschychiatric History:: Reports:: Anxiety, Depression Family Hx:: Cancer, Coronary Artery Disease, Heart Attack, Hyperlipidemia, Hypertension
--- NOTE | 2021-03-07 08:10 | P.PN_ITS ---
[facility] Anesthesia Record Part I Intake, IV Amount: 450 Estimated blood loss (mL): 0 Urine output (mL): 0 Blood Products used (#): none Blood Pressure: 112/69 SaO2: 92 Pulse Rate: 71 Respiratory Rate: 16 Temperature: 97.8 F Patient is:: Drowsy, Stable Stable to PACU at:: 08:02
[2021-03-07 08:40] LABS: POC Glucose,Bedside 95 (70-110)
--- NOTE | 2021-03-07 09:27 | HMH.ANESII ---
[facility] Anesthesia Record Part II Discharge Time: 08:32 Destination: Surgical Day Care (OP Surgery) PACU nurse assessment reviewed?: Yes Patient Condition:: Good Anesthesia Complications:: None Swallowing reflex intact?: Yes Cyanosis?: No Blood Pressure: 94/61 Pulse Rate: 76 Temperature: 97.9 F Mental Status: Alert & Oriented Pain level:: 0 Nausea and/or vomitting:: None Intake, IV Amount: 50
== END 2021-03-07 09:03 | disposition home or self-care (01) ==
LOC: OR 06:02
PROVIDERS: PCP Emergency Medicine; Visit Provider Surgery
DX: D17.1 Benign lipomatous neoplasm of skin and subcutaneous tissue of trunk (principal); R52 Pain, unspecified; E11.9 Type 2 diabetes mellitus without complications; I25.10 Atherosclerotic heart disease of native coronary artery without angina pectoris; E78.5 Hyperlipidemia, unspecified; I10 Essential (primary) hypertension; K21.9 Gastro-esophageal reflux disease without esophagitis; J45.909 Unspecified asthma, uncomplicated; F41.9 Anxiety disorder, unspecified; F32.9 Major depressive disorder, single episode, unspecified; G43.909 Migraine, unspecified, not intractable, without status migrainosus; Z85.9 Personal history of malignant neoplasm, unspecified
CPT/HCPCS: 11404; 12031; 82962; 88304; 96374; J2405

== ENCOUNTER → 2021-04-03 13:08 | Outpatient (CLI) | payer MEDICARE, SELFPAY ==
--- NOTE | 2021-04-03 13:08 | MM_ITS ---
PROCEDURE INFORMATION: Exam: MG Bilateral Screening 3D Mammography Exam date and time: 04/03/2021 1:08 PM Age: 60 years old Clinical indication: Encounter for screening mammogram for malignant neoplasm of breast .Positive family history of breast cancer: Grandmother and aunt TECHNIQUE: Imaging protocol: Bilateral screening tomosynthesis and 2D mammography including computer-aided detection (CAD) when performed. COMPARISON: 1. MG MM DIG SCREENING MAMM BI W/CAD 03/31/2020 9:16 AM 2. MG MM DIG SCREENING MAMM BI W/CAD 04/14/2019 9:16 AM FINDINGS: MAMMOGRAPHY: Breast composition: The breast tissue is composed of scattered areas of fibroglandular density. Mass: Nonspecific somewhat nodular asymmetry measuring 3.3 cm in greatest dimension is identified in the posterior third of the left upper inner quadrant. Architectural distortion: None. Calcifications: Clustered calcifications are identified in the right immediate retroareolar region possibly reflecting benign fat necrosis Asymmetric density: None. Skin thickening: None. Axillary adenopathy: None. IMPRESSION: 1. Patient to be recalled for spot compression views of the left breast in the CC and MLO projections and left breast ultrasound for further evaluation of left breast asymmetry. 2. Patient to be recalled for spot magnification views of the right breast in the CC and MLO projections for further evaluation of right breast calcifications. ASSESSMENT: BI-RADS Category 0: Incomplete- Need Additional Imaging Evaluation and/or Prior Mammograms for Comparison
== END ==
PROVIDERS: PCP Emergency Medicine; Visit Provider Emergency Medicine
DX: Z12.31 Encounter for screening mammogram for malignant neoplasm of breast (principal)
CPT/HCPCS: 77063; 77067

== ENCOUNTER → 2021-04-17 11:03 | Outpatient (POV) | payer MEDICARE, SELFPAY ==
[2021-04-17 11:19] VITALS: BP 121/70; PULSE 86; RESP 18; O2SAT 97; BMI 33.3
--- NOTE | 2021-04-17 13:47 | HMH.PAINSOAP ---
[facility] Pain Management SOAP Note Subjective:: Patient is a 60-year-old white female who presents today for follow-up. The patient was scheduled to undergo an injection at T11-T12 area but was denied by her insurance. Patient says that she is having pain at this time in her neck which is much worse than her mid back pain. She does report her pain to be a 7 out of 10. She has had a cervical epidural steroid injection in the past at the C7-T1 area. She got excellent relief with that injection. She did have this injection early January 2021. The patient's pain has returned. The patient is having pain in the left side of her neck with radiation into the left shoulder. The patient does take Plavix therapy. She is also having left anterior chest soreness. She did contact her primary care provider who has advised her to call her excel expert. She does plan to call her excel expert today to rule out cardiac involvement of her pain. The patient does have a history of a cardiac stent and is on Plavix. She is having pain in her left arm with numbness and tingling. She also reports to be having some left side facial pain. The patient is diabetic. She does report with her last injection that her pain went from an 8 out of 10 to a 4 or 5 out of 10. She has tried and failed conservative therapies of physical therapy in the past along with continued home stretching. She currently takes Mckinnon, tramadol, and gabapentin prescribed by Dr. Stahl. This does give her significant relief as well. She is unable to take anti-inflammatories due to anticoagulation use. She has also tried ice and heat therapies with minimal relief. Review of Systems General: No recent weight changes, no fever, no sleep disturbances Respiratory: No cough, no shortness of air, no recurring pulmonary infections Cardiovascular/peripheral vascular: No chest pain, no palpitations, no edema, no shortness of breath Gastrointestinal: No new onset incontinence, normal bowel movements reported Genitourinary: No new onset incontinence Musculoskeletal: Neck pain left side with radiation into left shoulder and left arm, intermittent left side facial pain Psychiatric: [Normal mood/affect] Neurological: [Denies weakness in extremities], [denies balance issues] Objective:: Physical exam General: Alert and oriented x3, no acute distress, pleasant and cooperative Lungs: Respirations even and unlabored, symmetrical chest expansion Eyes: PERRL Musculoskeletal: Flexion and extension of cervical [spine] somewhat guarded secondary to pain, slightly antalgic gait noted Neurological: Speech clear, no gross sensory deficit Assessment:: Degenerative disc disease cervical spine with cervical radiculopathy symptoms Plan:: The patient is complaining of worsening pain into her left side neck left shoulder and left arm today. She has had injection in her cervical spine in January 2021 and got significant relief with that injection, up to 80% relief until recently. The pain has returned to the left side of her neck. Patient does have a history of a cardiac stent. The left side facial pain is new onset for the patient. I have advised the patient along with her primary care provider that a cardiac work-up is warranted, as she is having left-sided facial pain along with left anterior chest pain. We will schedule the patient for a cervical epidural steroid injection at the C6-C7 area. She has tried physical therapy for more than 6 weeks and continues with home stretching. She is unable to take anti-inflammatories due to anticoagulation use. We will not do the injection until she has had a thorough work-up, however with cardiology. We will tentatively schedule the patient for the injection and await cardiac clearance before proceeding with the injection. The patient does take Plavix. She understands she will need to hold her anticoagulation therapy if she does proceed with the injection. She i
== END ==
PROVIDERS: Visit Provider Clinical Nurse Specialist Family Health
DX: M50.10 Cervical disc disorder with radiculopathy, unspecified cervical region (principal)
CPT/HCPCS: 99212; G0463

== ENCOUNTER → 2021-05-01 06:26 | Outpatient (CLI) | payer MEDICARE, SELFPAY ==
--- NOTE | 2021-05-01 06:27 | NM_ITS ---
APPROVED REPORT Exam: Nuclear Stress Test Indication: Chest pain, SOB, HTN, CAD, DM, High cholesterol, Family history Patient Location: Outpatient Stress Tech: Hillary Cabral MD Tech:Bell Stanley, ARRT, RT (R)(N) Ht: 5 ft 3 in Wt: 203 lbs Bra Size: 42DDD HR: 103 bpm BP: 105/63 mmHg BSA: 1.95 m2 BMI: 35.9 History: Chest pain, SOB, HTN, CAD, DM, High cholesterol, Family history Procedure: Patient received a 0.4 mg of intravenous Lexiscan, resting heart rate 103 bpm, resting blood pressure 105/63 mmHg, with Lexiscan maximum heart rate achived was 138 bpm which is Less than 85 % of the maximum predicted heart rate and blood pressure was 121/58 mmHg. With Lexiscan, patient denied any complaint of chest pain. Electrocardiogram Resting electrocardiogram shows sinus rhythm, with Lexiscan there is less than 1.[address] segment depression noted from the baseline EKG. The EKG portion of the Lexiscan is nondiagnostic. Cardiac Stress and Resting SPECT Images: Cardiac Stress and Resting SPECT images were obtained using technetium 99m Myoview 29.0 mCi stress and 10.18 mCi at rest. Gated SPECT for analysis of segmental wall motion and calculation of the ejection fraction also done. Prone images were also obtained. Cardiac stress and resting SPECT images show reversible ischemia involving the anteroseptal wall, there is transient ischemic dilatation of the left ventricle seen, raising the concerns of presence of multivessel coronary artery disease. Compared right ejection fraction is 61% with no regional wall motion abnormality, right ventricle is normal size and contractility. Conclusion: 1. The EKG portion of the Lexiscan is nondiagnostic. 2. Scintigraphic evidence of reversible ischemia involving the anteroseptal wall, computer derived ejection fraction 61% with no regional wall motion abnormality, right ventricle is normal size and contractility. Transient ischemic dilatation of the left ventricle seen, raising the concerns for presence of multivessel coronary artery disease. 3. Abnormal Lexiscan Myoview study. Electronically signed by : Alfred Raman MD 05/01/2021 19:18:17
--- NOTE | 2021-05-01 06:27 | CA_ITS ---
APPROVED REPORT EXAM: Comprehensive 2D, Doppler, and color-flow Echocardiogram Project Management Analyst: Deb Corey CRT Ht: 5 ft 3 in Wt: 197lbs BSA: 1.92 BP: 110/72 mmHg Indications: CP, CAD, Abn EKG, murmur, BALLARD, DM, htn, Hld 2D Dimensions LVOT 1.90 cm (M/F) 1.5-2.5 LA Volume 25.00 mL LA Volume Index 500.00 mL/m2 (M/F) 16-34 M-Mode Dimensions RVDd 2.10 cm (0.9-2.6) LA Diam 3.10 cm (1.9-4.0) LVDd 5.10 cm (3.5-5.7) Ao Diam 3.40 cm (2.0-3.7) LVDs 3.80 cm (3.5-5.7) AV Cusp 1.80 cm (1.5-2.6) IVSd 1.10 cm (0.6-1.1) PWd 0.50 cm (0.6-1.1) EF (Teich) 50.00% FS 25.50% EDV (Teich) 124.00 mL ESV (Teich) 62.00 mL LV Diastology E/A Ratio 0.60 MED E' 5.85 (< 7 cm/sec) MED A' 7.21 cm/s E'/MED E' Ratio 10.20 (>14) LAT E' 8.02 (<10 cm/sec) LAT A' 6.92 cm/s E/LAT E' Ratio 7.40 (>14) Aortic Valve AoV Peak German. 158.00 (50-130 cm/s) AO Peak GR. 10.00 mmHg Mitral Valve MV E Max German. 59.70 (40-130 cm/s) MV A Velocity 92.80 (40-130 cm/s) E/A Ratio 0.60 Pulmonary Valve GA End VMAX 187.00 cm/s PA Accel Time 102.00 (>120 msec) Tricuspid Valve TR P. Velocity 257.00 cm/s RAP Estimate 10.00 mmHg RVSP 36.00 mmHg Left Ventricle Technically difficult study because of the patient factors and poor acoustic windows. Left atrium is mildly enlarged, left ventricle is normal size, mild concentric left ventricular hypertrophy, visually estimated ejection fraction 55% with no regional wall motion abnormality, grade 1 diastolic dysfunction seen without tissue Doppler evidence of raise left atrial pressure. Right Ventricle Right atrium and right ventricle are normal size and contractility. Aortic Valve Aortic valve is minimally thickened and fibrosed, there is no aortic stenosis or aortic insufficiency. Mitral Valve Mitral valve is grossly normal, there is trace mitral regurgitation. Tricuspid Valve Tricuspid grossly normal, there is trace tricuspid regurgitation, tricuspid regurgitation jet velocity is inadequate for calculation of the right ventricular systolic pressure. Pulmonic Valve Pulmonic valve is poorly visualized. Great Vessels Aortic root is normal size. Inferior vena cava is mildly dilated without significant inspiratory collapse. Pericardium No significant pericardial effusion noted. Conclusion 1. Technically difficult study because of the patient factors and poor acoustic windows. Left atrium is mildly enlarged, left ventricle is normal size, mild concentric left ventricular hypertrophy, visually estimated ejection fraction 55% with no regional wall motion abnormality, grade 1 diastolic dysfunction seen without tissue Doppler evidence of raise left atrial pressure. 2. Trace mitral and tricuspid regurgitation. 3. No significant pericardial effusion noted. 4. Inferior vena cava is mildly dilated without significant inspiratory collapse. Electronically signed by : Alfred Raman MD 05/01/2021 20:39:13
--- NOTE | 2021-05-01 06:27 | CA_ITS ---
APPROVED REPORT Exam: Pharmacologic Technologist: Hillary Cabral Ht: 5 ft 3 in Wt: 197 lbs BSA: 1.92 m2 HR: 104 bpm BP: 105/63 mmHg Medical History Medications: Lisinopril,,,,, Omeprazole,,,,, Aspirin,,,,, Metformin,,,,, Ferrous sulfate,,,,, Gabapentin,,,,, Atorvastatin,,,,, Duoneb,,,,, TopIRAMATE,,,,, Albuterol,,,,, Tramadol,,,,, Montelukast,,,,, Stress Test Details Test: LEXISCAN HR Resting HR: 103 bpm Max Heart Rate (APMHR): 161.620999 bpm Max HR Achieved: 138 bpm Target HR (85% APMHR): 136.393649 bpm % of APMHR: 85.71 Recovery HR: 110 bpm BP Resting BP: 105.0/63.0 mmHg Max BP: 121.0/58.0 mmHg Recovery BP: 112.0/58.0 mmHg ECG Resting ECG: Normal sinus rhythm Clinical Reason for Termination: Completed Protocol Exercise duration: 04:00 min Highest Stage Achieved: Exercise capacity: 1.0 METs Stress ECG Conclusion Non-diagnostic lexiscan stress test. Patient received the infusion per protocol without chest pain, ST segment changes or arrhythmias. See the nuclear report for further information. Electronically signed by : Alfred Raman MD 05/01/2021 18:53:13
--- NOTE | 2021-05-01 08:55 | HMH.ITSHM ---
Current Home Medications as stated by this patient Parul Leone or accounts payable representative. []ALENDRONATE ALBUTEROL MONTELUKAST MIRABEGRON ISOSORBIDE TRAZODONE TRAMADOL TOPIRAMATE CLOPIDOGREL VITAMIN D3 CETIRIZINE ATORVASTATIN ASA ARIPIPRAZOLE SPIRONOLACTONE RIMEGEPANT RANOLAZINE POTASSIUM OMEPRAZOLE NYSTATIN METOPROLOL METFORMIN LISINOPRIL HYDROXYZINE GABAPENTIN IRON VITAMIN D2 DICYCLOMINE CYCLOBEZAPRINE ADVAIR CIPROFLOXACIN
== END ==
PROVIDERS: PCP Emergency Medicine; Visit Provider Nurse Practitioner Family
DX: R07.9 Chest pain, unspecified; R06.00 Dyspnea, unspecified; I25.10 Atherosclerotic heart disease of native coronary artery without angina pectoris; I51.89 Other ill-defined heart diseases; I95.9 Hypotension, unspecified; E11.9 Type 2 diabetes mellitus without complications; E78.5 Hyperlipidemia, unspecified; E66.9 Obesity, unspecified; Z68.34 Body mass index [BMI] 34.0-34.9, adult; Z79.84 Long term (current) use of oral hypoglycemic drugs
CPT/HCPCS: 78452; 93017; 93306; A9502; J2785

== ENCOUNTER → 2021-05-03 09:58 | Outpatient (CLI) | payer MEDICARE, SELFPAY ==
[2021-05-03 10:46] LABS: Basophils # 0.1 K/mm3 (0-0.2); Basophils % 0.8 % (0.1-2.0); Eosinophils # 0.3 K/mm3 (0.0-0.4); Eosinophils % 3.7 % (0.1-12.0); Hematocrit 42.1 % (37.0-47.0); Hemoglobin 13.4 g/dL (12.2-16.2); Lymphocytes # 1.9 K/mm3 (0.7-4.5); Lymphocytes % 24.9 % (10-50); Mean Corpuscular HGB Conc 31.9 g/dL (31.8-35.4); Mean Corpuscular Hemoglobin 29.5 pg (27.0-31.2); Mean Corpuscular Volume 92.5 fl (81-99); Mean Platelet Volume 8.5 fl (7.4-10.4); Monocytes # 0.3 K/mm3 (0.1-1.0); Monocytes % 3.7 % (1.7-9.3); Platelet Count 255 K/mm3 (142-424); Red Blood Count 4.56 M/mm3 (4.20-5.40); Red Cell Distribution Width 13.3 % (11.5-17.5); White Blood Count 7.5 K/mm3 (4.8-10.8)
[2021-05-03 12:28] LABS: Chloride 105 mmol/L (98-107); Sodium 137 mmol/L (136-145)
[2021-05-03 12:29] LABS: Potassium 4.7 mmoL/L (3.5-5.1)
[2021-05-03 12:31] LABS: Blood Urea Nitrogen 16 mg/dl (7-17); Estimated Glomerular Filt Rate 86 ml/min (>60); GFR (African American) 104 ML/MIN (>60)
[2021-05-03 12:32] LABS: Anion Gap 12.7 mEq/L (5-15); Calcium 8.9 mg/dl (8.4-10.2); Carbon Dioxide 24 mmol/L (22.0-30.0); Glucose 90 mg/dl (74-100)
== END ==
PROVIDERS: Visit Provider Urology
DX: E11.9 Type 2 diabetes mellitus without complications (principal); E66.9 Obesity, unspecified; E78.5 Hyperlipidemia, unspecified; I11.9 Hypertensive heart disease without heart failure; I20.9 Angina pectoris, unspecified; R00.0 Tachycardia, unspecified; R06.00 Dyspnea, unspecified; R07.9 Chest pain, unspecified; R94.31 Abnormal electrocardiogram [ECG] [EKG]; Z01.810 Encounter for preprocedural cardiovascular examination; Z20.822 Contact with and (suspected) exposure to COVID-19; Z79.84 Long term (current) use of oral hypoglycemic drugs; Z68.34 Body mass index [BMI] 34.0-34.9, adult
CPT/HCPCS: 36415; 80048; 85025; C9803; U0003; U0005

== ENCOUNTER 2021-05-05 08:28 | Day surgery (SDC) | payer MEDICARE, SELFPAY ==
[2021-05-05] VITALS (13 sets, daily range): BP systolic 75–99; BP diastolic 46–78; PULSE 64–83; RESP 16–18; TEMP 36.7; O2SAT 91–96; BMI 33.6
--- NOTE | 2021-05-05 | IR_ITS ---
APPROVED REPORT Patient Location: Outpatient Heat Transfer Technician: AMITA Garcia RT (R) PROCEDURES Left heart catheterization Selective coronary angiogram Left ventriculogram INDICATION Known coronary artery disease, Angina pectoris class IV Informed consent was obtained prior to the procedure. COMPLICATIONS NONE Estimated Blood Loss: LESS THAN 10 ML TECHNIQUE One percent lidocaine used to anesthetize the right anterior aspect of the wrist. The right radial artery was accessed via the Seldinger technique. A 6 Maori sheath was placed in the right radial artery. 2.5 mg of verapamil, 800 mcg of nitroglycerin, 1mg Lidocaine and 5000 U Heparin were given through the arterial sheath. The Poppa 1 catheter was also used to perform left heart catheterization, left ventriculogram and selective coronary angiogram. At the end of the procedure the sheath was removed good hemostasis was achieved using Traclet band, patient was transferred to the postop holding area in stable condition. ANGIOGRAPHIC RESULTS The left main artery Normal The left anterior descending artery Has a stent in the proximal segment which is widely patent free of in-stent restenosis with excellent proximal distal transitioning. There is an additional mid vessel 20% stenosis The circumflex artery Nondominant and normal The right coronary artery Large dominant normal The L[place] ventriculogram reveals Normal 65% The left ventricular end-diastolic pressure Severely elevated at 30 mmHg IMPRESSION Widely patent proximal LAD stent as described above Normal ejection fraction with severely elevated LVEDP Angina pectoris related to diastolic dysfunction elevated LVEDP PLAN 1. Treatment of diastolic dysfunction 2. Avoidance of excessive carbonated drinks 3. Weight loss 4. Continue risk factor modification Electronically signed by : James Gonzales MD 05/05/2021 11:34:14
== END 2021-05-05 13:40 | disposition home or self-care (01) ==
LOC: CATHLAB 08:30
PROVIDERS: PCP Emergency Medicine; Visit Provider Internal Medicine
DX: R94.39 Abnormal result of other cardiovascular function study (principal); Z79.899 Other long term (current) drug therapy; I25.118 Atherosclerotic heart disease of native coronary artery with other forms of angina pectoris; Z95.5 Presence of coronary angioplasty implant and graft; E11.9 Type 2 diabetes mellitus without complications; I11.9 Hypertensive heart disease without heart failure; G43.909 Migraine, unspecified, not intractable, without status migrainosus
CPT/HCPCS: 93458; 99152; C1725; C1769; J1644; Q9967

== ENCOUNTER → 2021-05-17 10:36 | Outpatient (CLI) | payer MEDICARE, SELFPAY ==
--- NOTE | 2021-05-17 10:50 | XR_ITS ---
PROCEDURE: XR CERVICAL SPINE W FLEX/EXT CLINICAL INDICATION: neck pain COMPARISON: No exams were available for comparison FINDINGS: There is normal alignment. There is degenerative disc disease at C4-C5 C5-C6 and C6-C7. No fracture or dislocation. No lytic or blastic change. There is 3 mm anterolisthesis of C7 on T1. Mild facet hypertrophic change C4-C7 Flexion and extension views show no abnormal subluxation in flexion or extension. IMPRESSION: Degenerative disc disease C4-C7 with 3 mm anterolisthesis of C7 on T1. No abnormal subluxation in flexion or extension. Dictated by: Nate Sharma MD 05/17/2021 13:06 Nate Sharma MD in [place] 05/17/2021 13:06
[2021-05-17 12:21] LABS: Chloride 106 mmol/L (98-107)
[2021-05-17 12:22] LABS: Potassium 4.6 mmoL/L (3.5-5.1); Sodium 139 mmol/L (136-145)
[2021-05-17 12:24] LABS: Blood Urea Nitrogen 7 mg/dl (7-17); Estimated Glomerular Filt Rate 73 ml/min (>60); GFR (African American) 89 ML/MIN (>60)
[2021-05-17 12:25] LABS: Anion Gap 12.6 mEq/L (5-15); Calcium 9.4 mg/dl (8.4-10.2); Carbon Dioxide 25 mmol/L (22.0-30.0); Glucose 101 mg/dl (74-100); Magnesium 1.4 mg/dl (1.6-2.3)
== END ==
PROVIDERS: PCP Emergency Medicine; Visit Provider Physician Assistant
DX: E78.5 Hyperlipidemia, unspecified (principal); I11.9 Hypertensive heart disease without heart failure; R06.00 Dyspnea, unspecified; R25.2 Cramp and spasm; R60.0 Localized edema; I20.9 Angina pectoris, unspecified; R94.30 Abnormal result of cardiovascular function study, unspecified; G43.711 Chronic migraine without aura, intractable, with status migrainosus; M47.22 Other spondylosis with radiculopathy, cervical region; R93.7 Abnormal findings on diagnostic imaging of other parts of musculoskeletal system
CPT/HCPCS: 36415; 72052; 80048; 83735

== ENCOUNTER 2021-05-26 13:54 | Day surgery (SDC) | payer MEDICARE, SELFPAY ==
[2021-05-26 14:00] VITALS: BP 105/60; PULSE 96; RESP 18; TEMP 36.5; O2SAT 98; BMI 35.0
--- NOTE | 2021-05-26 14:12 | HMH.PMPROC ---
- Procedure Date: 05/26/21 Time: 14:12 Anesthesiologist:: Gerson Schmitt MD Complications:: None Pre-procedure Diagnosis:: Degenerative disc disease of the cervical spine with cervical radiculopathy symptoms Post-procedure Diagnosis:: Same Indications for Procedure:: Patient is a pleasant 60-year-old white female who we are treating for neck pain with cervical radicular symptoms. She did well with her previous cervical epidural steroid injection. She has been off her Plavix. She presents for repeat cervical epidural steroid injection today to help with her neck pain and cervical radicular symptoms. Most of her pain is in the neck and on the left side. Procedure Details:: Cervical epidural steroid injection under fluoroscopy Informed consent was obtained and the risks and benefits of the procedure was explained to the patient. The patient was taken to the procedure room placed prone on the procedure table. The neck was prepped using ChloraPrep. The skin and subcutaneous tissues were anesthetized using lidocaine. I placed a 18-gauge epidural needle into the C5-C6 interspace and advanced using [id number] to air and fluoroscopic guidance. After confirmation of needle placement in the epidural space with dye, I injected 3 mL's lidocaine 1.5% and Depo-Medrol 80 mg. The patient tolerated the procedure well with no complications. Plan and Disposition:: Follow-up with her in 2 weeks. Will reevaluate symptoms at that time.
[2021-05-26 14:14] VITALS: BP 105/62; PULSE 92; RESP 18; O2SAT 95
[2021-05-26 14:15] VITALS: BP 101/65; PULSE 91; RESP 18; O2SAT 95
[2021-05-26 14:33] VITALS: BP 110/59; PULSE 89; RESP 20; O2SAT 94
== END 2021-05-26 14:34 | disposition home or self-care (01) ==
LOC: SC.PAINP 13:54
PROVIDERS: PCP Emergency Medicine; Visit Provider Anesthesiology
DX: M50.10 Cervical disc disorder with radiculopathy, unspecified cervical region (principal); G43.909 Migraine, unspecified, not intractable, without status migrainosus; I25.10 Atherosclerotic heart disease of native coronary artery without angina pectoris; E78.5 Hyperlipidemia, unspecified; I10 Essential (primary) hypertension; J45.909 Unspecified asthma, uncomplicated; K21.9 Gastro-esophageal reflux disease without esophagitis; M79.18 Myalgia, other site; M19.90 Unspecified osteoarthritis, unspecified site; Z79.899 Other long term (current) drug therapy
CPT/HCPCS: 62321; J1040; Q9966

== ENCOUNTER → 2021-06-01 13:04 | Outpatient (CLI) | payer MEDICARE, SELFPAY ==
--- NOTE | 2021-06-01 13:04 | MM_ITS ---
PROCEDURE INFORMATION: Exam: MG Bilateral Diagnostic Breast Tomosynthesis Complete left breast ultrasound Exam date and time: 06/01/2021 1:04 PM Age: 60 years old Clinical indication: Patient recalled for further evaluation of tissue asymmetry in the left breast and right breast calcifications TECHNIQUE: Imaging protocol: Bilateral Diagnostic tomosynthesis and 2D mammography including computer-aided detection (CAD) when performed. Unilateral or bilateral exam. COMPARISON: 1. MG MM DIG SCREENING MAMM BI W/CAD 04/03/2021 1:26 PM 2. MG MM DIG SCREENING MAMM BI W/CAD 03/31/2020 9:16 AM FINDINGS: MAMMOGRAPHY: Digital diagnostic spot compression views of the posterior left 12 o'clock axis demonstrates slight persistent asymmetry without definitive discrete mass lesion seen. Digital diagnostic magnification views of anterior right breast demonstrates probably benign coarse calcifications some of which contain lucent centers consistent with benign fat necrosis. Sonographic images of the left breast including the retroareolar region, all 4 quadrants, and the axilla demonstrates subcutaneous mixed echotexture somewhat border forming mass. There is both increased echogenicity peripherally with accompanying subcentimeter hypoechoic regions internally in the posterior 12 o'clock axis . The area of interest measures approximately 2.1 x 0.6 cm in greatest dimension. It is adjacent to a subcentimeter fat containing benign-appearing intramammary lymph node. The area of interest correlates with the nonspecific asymmetry on mammography. The finding likely reflects benign fat necrosis. IMPRESSION: Probably benign fat necrosis in the posterior left 12 o'clock axis . Additional probably benign calcific fat necrosis is noted in the anterior right breast. A six-month follow-up diagnostic bilateral mammogram is recommended to ensure stability over time unless otherwise clinically indicated. ASSESSMENT: BI-RADS Category 3: Probably benign
--- NOTE | 2021-06-01 13:04 | US_ITS ---
Please see mammogram report 06/01/2021
== END ==
PROVIDERS: PCP Emergency Medicine; Visit Provider Emergency Medicine
DX: R92.8 Other abnormal and inconclusive findings on diagnostic imaging of breast (principal)
CPT/HCPCS: 76641; 77062; 77066; G0279

== ENCOUNTER → 2021-06-08 11:54 | Outpatient (POV) | payer MEDICARE, SELFPAY ==
[2021-06-08 12:08] VITALS: BP 122/67; PULSE 86; RESP 18; O2SAT 97; BMI 35.4
--- NOTE | 2021-06-08 12:13 | HMH.PAINSOAP ---
[facility] Pain Management SOAP Note Subjective:: Patient is a 60-year-old white female who presents today for follow-up after cervical epidural steroid injection. She got significant relief with 0 pain in her neck at this time. She is complaining, however, of left shoulder pain. She recently got a new dryer and says that the continuous pulling on the door has caused significant pain in her left shoulder. She is having difficulty lifting her left arm and is having limited range of motion. Today, she does rate her pain a 3 out of 10. She would like to proceed with a left intra-articular shoulder injection. The patient has tried home stretching with minimal relief and anti-inflammatories. Review of Systems General: No recent weight changes, no fever, no sleep disturbances Respiratory: No cough, no shortness of air, no recurring pulmonary infections Cardiovascular/peripheral vascular: No chest pain, no palpitations, no edema, no shortness of breath Gastrointestinal: No new onset incontinence, normal bowel movements reported Genitourinary: No new onset incontinence Musculoskeletal: Left shoulder pain Psychiatric: [Normal mood/affect] Neurological: [Denies weakness in extremities], [denies balance issues] Objective:: Physical exam General: Alert and oriented x3, no acute distress, pleasant and cooperative Lungs: Respirations even and unlabored, symmetrical chest expansion Eyes: PERRL Musculoskeletal: Range of motion left upper extremity somewhat guarded secondary to pain, normal gait noted Neurological: Speech clear, no gross sensory deficit Assessment:: Arthritis left shoulder, left shoulder pain Plan:: We will schedule the patient for left intra-articular shoulder injection. She is now on any anticoagulation therapy. We will see her back in the clinic after the injection for further evaluation of symptoms. She is deferred on imaging of the shoulder at this time. Possible side effects of corticosteroids have been discussed with the patient. Risks and benefits of the procedure have been explained to the patient. Patient would like to proceed with the procedure. Patient has been instructed to contact the clinic with any concerns before the next appointment. Dr. Schmitt has reviewed this note and agrees with this plan of care. This note was dictated using voice recognition software and make contain errors or omissions. [facility] History I have reviewed the patient's past medical history: Yes Medical History: Reports:: Anxiety, Arrhythmia, Asthma, Atherosclerotic Heart Disease, Coronary Artery Disease, Depression, Diabetes Mellitus Type 2, Gastroesophageal Reflux Disease(GERD), Heart Murmur, Hyperlipidemia, Hypertension, Migraine, Urinary Tract Infection Denies:: Cancer, Diabetes Mellitus Type 1, Internal Pacemaker, MRSA, Seizures *Have you ever received a pneumonia vaccine?: No *Have you received a flu vaccine this season?: No Other Medical History: Reports: Anemia, Arthritis, Fibromyalgia, Acquired Immunodeficiency Syndrome (AIDS), Hypothyroidism, Other. Denies: Blood Transfusion Reaction Laterality Cases: Bilateral: Arthroscopy Knee, Other Other Surgeries: Yes: No Previous Surgery, Cardiac Catheterization, Cholecystectomy, Colonoscopy, Coronary Stent, Dilation and Curettage, EGD, Hysterectomy-Total, Hysterectomy-Partial, Tubal Ligation, Other (chest wall biopsy). No: Pacemaker Amputation: No Fractures: Yes - *Social History Smoking Status: Never smoker # Packs/Day (cigarettes): 1 Alcohol Intake: never Substance Use Type: denies use *Occupational Status:: disabled Housing: house Household Members: family *Travel in the last 8 weeks: None - Psychiatric History Pschychiatric History:: Reports:: Anxiety, Depression Family Hx:: Cancer, Coronary Artery Disease, Heart Attack, Hyperlipidemia, Hypertension
== END ==
PROVIDERS: Visit Provider Clinical Nurse Specialist Family Health
DX: M19.012 Primary osteoarthritis, left shoulder (principal)
CPT/HCPCS: 99212; G0463

== ENCOUNTER → 2021-07-06 08:16 | Outpatient (CLI) | payer MEDICARE, SELFPAY ==
--- NOTE | 2021-07-06 08:16 | MR_ITS ---
FINAL REPORT CLINICAL HISTORY: Cervical spondylosis with radiculopathy, neck pain COMPARISON: January 02, 2021 FINDINGS: Multiplanar MR imaging of the cervical spine was performed without contrast. On the sagittal T2-weighted images, disc degeneration is seen throughout. There is no evidence of fracture. The vertebral alignment is normal. The cervical spinal cord has an unremarkable appearance without evidence of mass, edema or syrinx. No significant canal stenosis is identified. The cervicomedullary junction is normal. C2-3: There is no significant canal stenosis or neural foraminal narrowing. C3-4: An annular bulge is present. There is no significant canal stenosis or neural foraminal narrowing. C4-5: There is a disc osteophyte complex with mild bilateral neural foraminal narrowing. C5-6: There is a disc osteophyte complex with mild right neural foraminal narrowing. C6-7: There is a disc osteophyte complex with mild left neural foraminal narrowing. C7-T1: There is no significant canal stenosis or neural foraminal narrowing. IMPRESSION: Multilevel degenerative disc disease with areas of neural foraminal narrowing as described. No focal disc protrusion or significant central canal stenosis. Reviewed, Interpreted and Dictated by Randy Leach III, MD Transcribed by Ezequiel Friedman Authenticated by Randy Leach III, MD on 07/06/2021 09:33:42 AM [facility]
== END ==
PROVIDERS: PCP Emergency Medicine; Visit Provider Specialist
DX: M47.22 Other spondylosis with radiculopathy, cervical region (principal); R93.7 Abnormal findings on diagnostic imaging of other parts of musculoskeletal system
CPT/HCPCS: 72141; 76376

== ENCOUNTER → 2021-07-26 16:00 | Outpatient (CLI) | payer MEDICARE, SELFPAY | PROVIDERS: Visit Provider Emergency Medicine | DX: R05.9 Cough, unspecified (principal); U07.1 COVID-19 | CPT/HCPCS: C9803; U0003; U0005 ==

== ENCOUNTER 2021-08-11 09:48 | Day surgery (SDC) | payer MEDICARE, SELFPAY ==
[2021-08-11 09:59] VITALS: BP 108/52; PULSE 66; RESP 18; TEMP 36.7; O2SAT 93; BMI 34.5
[2021-08-11 10:59] VITALS: BP 97/65; PULSE 63; RESP 20; O2SAT 95
[2021-08-11 11:00] VITALS: BP 98/65; PULSE 63; RESP 20; O2SAT 98
--- NOTE | 2021-08-11 11:00 | P.PCN_ITS ---
- Procedure Date: 08/11/21 Time: 11:00 Anesthesiologist:: Sunitha Alvarez MD Complications:: None Pre-procedure Diagnosis:: Left shoulder pain secondary to primary osteoarthritis in the glenohumeral joint and subacromial bursitis Post-procedure Diagnosis:: Same Indications for Procedure:: This patient is a very pleasant 60-year-old white female who presents today with chronic left-sided shoulder pain related to the above diagnosis. She has tried and failed conservative treatment including oral pain medications and home stretching program for greater than 6 weeks. Of note, she has previously undergone cervical epidural steroid injections for her chronic neck and arm pain and notes resolution of the symptoms after undergoing the previous injection. Plan for today is for the patient to undergo left-sided shoulder injection to the glenohumeral joint and subacromial bursa. Procedure Details:: Informed consent was obtained. Risks and benefits of the procedure were explained to the patient. Patient was taken back to the procedure. The left shoulder was prepped using ChloraPrep. A 25-gauge needle was used first posteriorly in the medial to lateral trajectory the needle is advanced into the glenohumeral joint of the left shoulder was approached, at which point 3 mL of injectate solution of 5 mL of 1% lidocaine, 5 mL bupivacaine 0.25% and Depo- Medrol 40 mg was injected. Next the trajectory was adjusted so that the needle was advanced anteriorly and superiorly into the subacromial bursa of the shoulder, at which point 5 mL of the same injectate solution was injected. The needle was subsequently removed. Patient tolerated the procedure well without any complications. Plan and Disposition:: We will follow-up with this patient in 2 weeks. Will reevaluate pain symptoms at that time.
[2021-08-11 11:10] VITALS: BP 107/43; PULSE 65; RESP 20; O2SAT 97
== END 2021-08-11 11:11 | disposition home or self-care (01) ==
LOC: SC.PAINP 09:50
PROVIDERS: PCP Emergency Medicine; Visit Provider Anesthesiology Pain Medicine
DX: M19.012 Primary osteoarthritis, left shoulder (principal); M75.50 Bursitis of unspecified shoulder; G43.909 Migraine, unspecified, not intractable, without status migrainosus; I25.10 Atherosclerotic heart disease of native coronary artery without angina pectoris; E78.5 Hyperlipidemia, unspecified; I10 Essential (primary) hypertension; K21.9 Gastro-esophageal reflux disease without esophagitis; E11.9 Type 2 diabetes mellitus without complications; E03.9 Hypothyroidism, unspecified; M79.10 Myalgia, unspecified site
CPT/HCPCS: 20610; J1040

== ENCOUNTER → 2021-08-16 10:04 | Outpatient (CLI) | payer MEDICARE, SELFPAY ==
[2021-08-16 10:40] LABS: Basophils # 0.1 K/mm3 (0-0.2); Basophils % 1.2 % (0.1-2.0); Eosinophils # 0.2 K/mm3 (0.0-0.4); Eosinophils % 2.1 % (0.1-12.0); Hematocrit 43.2 % (37.0-47.0); Hemoglobin 13.5 g/dL (12.2-16.2); Lymphocytes # 1.6 K/mm3 (0.7-4.5); Lymphocytes % 19.3 % (10-50); Mean Corpuscular HGB Conc 31.3 g/dL (31.8-35.4); Mean Corpuscular Hemoglobin 29.2 pg (27.0-31.2); Mean Corpuscular Volume 93.5 fl (81-99); Mean Platelet Volume 7.8 fl (7.4-10.4); Monocytes # 0.5 K/mm3 (0.1-1.0); Monocytes % 5.6 % (1.7-9.3); Neutrophils # 5.9 K/mm3 (1.8-7.8); Platelet Count 278 K/mm3 (142-424); Red Blood Count 4.62 M/mm3 (4.20-5.40); Red Cell Distribution Width 13.3 % (11.5-17.5); White Blood Count 8.1 K/mm3 (4.8-10.8)
[2021-08-16 11:25] LABS: Chloride 101 mmol/L (98-107)
[2021-08-16 11:26] LABS: Potassium 3.9 mmoL/L (3.5-5.1); Sodium 133 mmol/L (136-145)
[2021-08-16 11:28] LABS: Alanine Aminotransferase 31 U/L (12-78); Alkaline Phosphatase 118 U/L (38-126); Anion Gap 10.9 mEq/L (5-15); Aspartate Amino Transferase 25 U/L (14-36); Bilirubin,Direct 0.3 mg/dl (0.0-0.4); Bilirubin,Total 0.3 mg/dl (0.2-1.3); Blood Urea Nitrogen 11 mg/dl (7-17); Carbon Dioxide 25 mmol/L (22.0-30.0); Cholesterol 176 mg/dl (140-200); Estimated Glomerular Filt Rate 86 ml/min (>60); GFR (African American) 104 ML/MIN (>60); Triglycerides 131 mg/dl (30-150); VLDL Cholesterol 26 mg/dL (0-40)
[2021-08-16 11:29] LABS: Albumin Level 4.3 g/dl (3.5-5.0); Calcium 8.5 mg/dl (8.4-10.2); Chol/HDL Ratio 3.1 (1-3.5); Glucose 83 mg/dl (74-100); HDL Cholesterol 57 mg/dl (40-60); Total Protein,Serum 6.6 g/dl (6.3-8.2)
[2021-08-16 11:40] LABS: Direct LDL Cholesterol 94.87 mg/dL (100-129)
[2021-08-16 11:59] LABS: Thyroid Stimulating Hormone 1.82 uIU/mL (0.465-4.68)
[2021-08-16 12:24] LABS: Hemoglobin A1C 6.1 % (4.0-6.0)
== END ==
PROVIDERS: Visit Provider Physician Assistant
DX: E11.9 Type 2 diabetes mellitus without complications (principal); E66.9 Obesity, unspecified; E78.2 Mixed hyperlipidemia; I11.9 Hypertensive heart disease without heart failure; I25.118 Atherosclerotic heart disease of native coronary artery with other forms of angina pectoris; R06.00 Dyspnea, unspecified; R07.89 Other chest pain; R94.31 Abnormal electrocardiogram [ECG] [EKG]; I63.9 Cerebral infarction, unspecified; Z79.84 Long term (current) use of oral hypoglycemic drugs; Z68.34 Body mass index [BMI] 34.0-34.9, adult
CPT/HCPCS: 36415; 80048; 80061; 80076; 83036; 84439; 84443; 85025

== ENCOUNTER → 2021-08-31 10:26 | Outpatient (POV) | payer MEDICARE, SELFPAY ==
[2021-08-31 10:36] VITALS: BP 95/55; PULSE 71; RESP 20; TEMP 36.7; O2SAT 98; BMI 33.6
--- NOTE | 2021-08-31 12:06 | HMH.PAINSOAP ---
[facility] Pain Management SOAP Note Subjective:: Patient is a pleasant 60-year-old female who presents today for follow-up after a left shoulder intra-articular injection to the glenohumeral joint and subacromial bursa on August 11, 2021. There are currently managing this patient for osteoarthritis of the left shoulder. After the procedure, patient had significant relief of about 90 to 100%. She rates her pain today as 6 out of 10. For pain management, she is taking tramadol 50 mg 3 times a day, gabapentin 600 mg 6 times a day and [place] 5mg that are not prescribed by this clinic. [facility] #[id number] with an active morphine equivalent of 15. ORT score is low risk Today, patient is complaining of bilateral rhomboid pain that is worse with any range of motion of her shoulders. The oral medications that she is taking is not helping with this pain. She says that she does raise her shoulders up frequently at work. General: No recent weight changes, no fever, no sleep disturbances Respiratory: No cough, no shortness of air, no recurring pulmonary infections Cardiovascular/peripheral vascular: No chest pain, no palpitations, no edema, no shortness of breath Gastrointestinal: No new onset incontinence, normal bowel movements reported Genitourinary: No new onset incontinence Musculoskeletal: Shoulder pain, bilateral rhomboid pain Psychiatric: [Normal mood/affect] Neurological: [Denies weakness in extremities], [denies balance issues] Objective:: General: Alert and oriented x3, no acute distress, pleasant and cooperative, [on room air] Lungs: Respirations even and unlabored, symmetrical chest expansion Eyes: PERRL Musculoskeletal: Limited range of motion of left shoulder secondary to pain. Bilateral rhomboids are tender to palpation Neurological: Speech clear, no gross sensory deficit Assessment:: Osteoarthritis of the left shoulder. Myofascial pain of bilateral rhomboids Plan:: Patient is still having significant relief after her left shoulder intra-articular injection in the glenohumeral joint and subacromial bursa. Today, patient is complaining of pain around her bilateral rhomboids. These are tender to palpation. These are consistent with myofascial pain. I will schedule the patient for trigger point injections into her bilateral rhomboids. Risks and benefits of the procedure have been explained to the patient. Patient would like to proceed with the procedure. Patient has been instructed to contact the clinic with any concerns before the next appointment. Dr. Schmitt has reviewed this note and agrees with this plan of care. This note was dictated using voice recognition software and make contain errors or omissions. [facility] History Medical History: Reports:: Anxiety, Arrhythmia, Asthma, Atherosclerotic Heart Disease, Coronary Artery Disease, Depression, Diabetes Mellitus Type 2, Gastroesophageal Reflux Disease(GERD), Heart Murmur, Hyperlipidemia, Hypertension, Migraine, Urinary Tract Infection Denies:: Cancer, Diabetes Mellitus Type 1, Internal Pacemaker, MRSA, Seizures *Have you ever received a pneumonia vaccine?: Yes *Have you received a flu vaccine this season?: Yes Other Medical History: Reports: Anemia, Arthritis, Fibromyalgia, Acquired Immunodeficiency Syndrome (AIDS), Hypothyroidism, Other. Denies: Blood Transfusion Reaction Laterality Cases: Bilateral: Arthroscopy Knee, Other Other Surgeries: Yes: No Previous Surgery, Cardiac Catheterization, Cholecystectomy, Colonoscopy, Coronary Stent, Dilation and Curettage, EGD, Hysterectomy-Total, Hysterectomy-Partial, Tubal Ligation, Other (chest wall biopsy). No: Pacemaker Amputation: No Fractures: Yes - *Social History Smoking Status: Never smoker # Packs/Day (cigarettes): 1 #Yrs smoked (if former smoker): 30 Alcohol Intake: never Substance Use Type: denies use *Occupational Status:: other Housing: house Household Members: family *Travel in the last 8 weeks: None
== END ==
PROVIDERS: Visit Provider Student in an Organized Health Care Education/Training Program
DX: M19.012 Primary osteoarthritis, left shoulder; M79.12 Myalgia of auxiliary muscles, head and neck
CPT/HCPCS: 99212; G0463

== ENCOUNTER 2021-09-15 10:16 | Day surgery (SDC) | payer MEDICARE, SELFPAY ==
[2021-09-15 10:53] VITALS: BP 102/61; BP 99/55; PULSE 58; PULSE 68; RESP 16; RESP 20; TEMP 36.3; O2SAT 92; O2SAT 95; BMI 32.8
[2021-09-15 11:38] VITALS: BP 106/64; PULSE 61; RESP 18; O2SAT 93
[2021-09-15 11:41] VITALS: BP 106/64; PULSE 60; RESP 18; O2SAT 93
--- NOTE | 2021-09-15 13:05 | HMH.PMPROC ---
- Procedure Date: 09/15/21 Time: 13:05 Anesthesiologist:: Gerson Schmitt MD Complications:: None Pre-procedure Diagnosis:: Myofascial pain over the scapular area and bilateral rhomboids Post-procedure Diagnosis:: Same Indications for Procedure:: Patient is a pleasant 60-year-old white female who we have been treating for left shoulder pain. She is doing well with her shoulder however now she has increasing pain over her scapular areas in particular over bilateral rhomboids. Trigger points are identified. She presents for trigger point injections today. Procedure Details:: Trigger point injections x8 to bilateral rhomboid muscles Informed consent was obtained risk and benefits of the procedure were explained to the patient. Patient was taken the procedure room. The mid back and scapular area were prepped using ChloraPrep. A 25-gauge needle was used and we injected each trigger point with bupivacaine 0.25% 3 mL and Depo-Medrol 10 mg. Total of 4 trigger points on each side were injected into the rhomboid muscles. We used a total of 80 mg Depo-Medrol for both sides. Patient tolerated procedure well with no complications. Plan and Disposition:: We will follow-up with her in 2 weeks. Will reevaluate symptoms at that time.
== END 2021-09-15 11:51 | disposition home or self-care (01) ==
LOC: SC.PAINP 10:17
PROVIDERS: PCP Emergency Medicine; Visit Provider Anesthesiology
DX: M79.18 Myalgia, other site (principal); F41.9 Anxiety disorder, unspecified; J45.909 Unspecified asthma, uncomplicated; I25.10 Atherosclerotic heart disease of native coronary artery without angina pectoris; F32.A Depression, unspecified; E11.9 Type 2 diabetes mellitus without complications; K21.9 Gastro-esophageal reflux disease without esophagitis; E78.5 Hyperlipidemia, unspecified; I10 Essential (primary) hypertension; G43.909 Migraine, unspecified, not intractable, without status migrainosus; M19.90 Unspecified osteoarthritis, unspecified site; D64.9 Anemia, unspecified
CPT/HCPCS: 20552; J1040

== ENCOUNTER → 2021-10-12 11:14 | Outpatient (POV) | payer MEDICARE, SELFPAY ==
[2021-10-12 11:26] VITALS: BP 105/63; PULSE 78; RESP 18; TEMP 36.7; O2SAT 95; BMI 35.0
--- NOTE | 2021-10-12 13:05 | HMH.PAINSOAP ---
[facility] Pain Management SOAP Note Subjective:: Patient is a pleasant 60-year-old female who presents today for follow-up after a bilateral trigger point injections of her rhomboids/lateral trapezius muscles on September 15, 2021. After procedure, patient states that she had significant relief of about 80 to 90%. Denies any issues after the procedure. She rates her pain today as 8 out of 10. Currently managing this patient for osteoarthritis of left shoulder, myofascial pain, mid back pain. She recently had a left glenohumeral joint injection and subacromial bursa injections on August 11, 2021 that provided 90 to 100% relief. Patient is also being managed with gabapentin 600 mg 6 times a day, [place] 5 mg 3 times a day, tramadol 50 mg 3 times a day by an outside provider. Denies any side effects from these medications. Today, patient states that she is still having pain around her mid back that is worse whenever she stands for long periods of time specially when she is washing dishes. She has never had any imaging in this area. Denies any recent falls or traumas. Review of Systems: General: No recent weight changes, no fever, no sleep disturbances Respiratory: No cough, no shortness of air, no recurring pulmonary infections Cardiovascular/peripheral vascular: No chest pain, no palpitations, no edema, no shortness of breath Gastrointestinal: No new onset incontinence, normal bowel movements reported Genitourinary: No new onset incontinence Musculoskeletal: Mid back pain Psychiatric: [Normal mood/affect] Neurological: [Denies weakness in extremities], [denies balance issues] Objective:: Physical Exam: General: Alert and oriented x3, no acute distress, pleasant and cooperative, [on room air] Lungs: Respirations even and unlabored, symmetrical chest expansion Eyes: PERRL Musculoskeletal: Flexion and extension of thoracic [spine] somewhat guarded secondary to pain, [antalgic gait noted]; limited range of motion of the left shoulder secondary to pain Neurological: Speech clear, no gross sensory deficit Assessment:: Osteoarthritis of the left shoulder, myofascial pain of bilateral rhomboid/lateral trapezius, mid back pain Plan:: Patient had significant relief after trigger point injections of bilateral rhomboid/lateral trapezius muscles. Is any issues with this procedure. She is still complaining of mid back pain that radiates north and south of her spine. She is tender to palpation around this mid back. She has never had any imaging of her mid back. We will order an MRI of her thoracic spine. I will start the patient on a compounding cream that she can apply in these tender areas. Follow-up after the MRI Patient is due for another left shoulder intra-articular injection in late October or early November 2021. Patient has been instructed to contact the clinic with any concerns before the next appointment. Dr. Schmitt has reviewed this note and agrees with this plan of care. This note was dictated using voice recognition software and make contain errors or omissions. [facility] History Medical History: Reports:: Anxiety, Arrhythmia, Asthma, Atherosclerotic Heart Disease, Coronary Artery Disease, Depression, Diabetes Mellitus Type 2, Gastroesophageal Reflux Disease(GERD), Heart Murmur, Hyperlipidemia, Hypertension, Migraine, Urinary Tract Infection Denies:: Cancer, Diabetes Mellitus Type 1, Internal Pacemaker, MRSA, Seizures *Have you ever received a pneumonia vaccine?: Yes *Have you received a flu vaccine this season?: Yes Other Medical History: Reports: Anemia, Arthritis, Fibromyalgia, Acquired Immunodeficiency Syndrome (AIDS), Hypothyroidism, Other. Denies: Blood Transfusion Reaction Laterality Cases: Bilateral: Arthroscopy Knee, Other Other Surgeries: Yes: No Previous Surgery, Cardiac Catheterization, Cholecystectomy, Colonoscopy, Coronary Stent, Dilation and Curettage, EGD, Hysterectomy-Total, Hysterectomy-Partial, Tubal Ligation, Other (chest wall bi
== END ==
PROVIDERS: Visit Provider Student in an Organized Health Care Education/Training Program
DX: M54.6 Pain in thoracic spine (principal); M19.012 Primary osteoarthritis, left shoulder; M79.18 Myalgia, other site
CPT/HCPCS: 99212; G0463

== ENCOUNTER → 2021-10-19 15:54 | Outpatient (CLI) | payer MEDICARE, SELFPAY ==
--- NOTE | 2021-10-19 15:58 | MR_ITS ---
PROCEDURE INFORMATION: Exam: MR Thoracic Spine Without Contrast Exam date and time: 10/19/2021 4:04 PM Age: 60 years old Clinical indication: Pain in thoracic spine; With radiculopathy; Left; Additional info: Thoracic pain. Thoracic pain x years. Left arm pain with numbness TECHNIQUE: Imaging protocol: Multiplanar magnetic resonance images of the thoracic spine without contrast. COMPARISON: US SPINAL CANAL CONTENT 08/10/2020 10:03 AM FINDINGS: Vertebrae: An incidental 11 mm hemangioma is present in the T6 vertebral body. Additional small hemangiomas are present in the T4 and L1 vertebral bodies. There are small high T2 signal lesions in the T8, T9, and T12 vertebral bodies. These are difficult to visualize on the T1 weighted sequence but most likely represent lipid poor hemangiomas. There is no acute fracture. Alignment is anatomic. Spinal cord: Normal signal. No cord compression. Discs/Spinal canal/Neural foramina: Minor degenerative changes of the thoracic spine are present. There is no significant spinal canal stenosis. Other bones/joints: Multiple chronic left-sided rib fractures are noted. Soft tissues: Unremarkable. IMPRESSION: 1. No acute abnormality. 2. Chronic findings as discussed above.
== END ==
PROVIDERS: PCP Emergency Medicine; Visit Provider Student in an Organized Health Care Education/Training Program
DX: M54.6 Pain in thoracic spine (principal)
CPT/HCPCS: 72146

== ENCOUNTER → 2021-11-02 10:52 | Outpatient (POV) | payer MEDICARE, SELFPAY ==
[2021-11-02 10:59] VITALS: BP 122/76; PULSE 83; RESP 18; TEMP 36.5; O2SAT 97; BMI 32.2
--- NOTE | 2021-11-02 13:49 | HMH.PAINSOAP ---
[facility] Pain Management SOAP Note Subjective:: Patient is a pleasant 60-year-old female who presents today for follow-up. Patient is currently being treated for myofascial pain, osteoarthritis of the left shoulder, mid back pain. We have been managing this patient's pain with injective therapy. We recently did a trigger point injections of the bilateral rhomboids and trapezius muscles. Each injection provides about 80 to 90% relief. She also had a left glenohumeral joint injection and subacromial bursa injections on August 11, 2021 that provided 9200% relief. When I last saw this patient, she was still complaining of mid back pain so I ordered a thoracic MRI to evaluate pathology. Her thoracic MRI shows no acute abnormalities. There is an incidental 11 mm hemangioma present in the T6 vertebral body. There are some minor degenerative changes of the thoracic spine. No significant spinal canal stenosis. No acute fracture. Today patient is still complaining of pain around the mid back and around the bilateral shoulder blades. This is not radiating anywhere. This is worse whenever she stands for long periods of time specially when she is washing dishes. She is also prescribed gabapentin, [place], tramadol by an outside provider. Rates pain today as 5 out of 10. Review of Systems: General: No recent weight changes, no fever, no sleep disturbances Respiratory: No cough, no shortness of air, no recurring pulmonary infections Cardiovascular/peripheral vascular: No chest pain, no palpitations, no edema, no shortness of breath Gastrointestinal: No new onset incontinence, normal bowel movements reported Genitourinary: No new onset incontinence Musculoskeletal: Mid back pain Psychiatric: [Normal mood/affect] Neurological: [Denies weakness in extremities], [denies balance issues] Objective:: Physical Exam: General: Alert and oriented x3, no acute distress, pleasant and cooperative Lungs: Respirations even and unlabored, symmetrical chest expansion Eyes: PERRL Musculoskeletal: Flexion and extension of thoracic [spine] somewhat guarded secondary to pain, [antalgic gait noted]; tender to palpation around the bilateral shoulder blades. Neurological: Speech clear, no gross sensory deficit Assessment:: Myofascial pain, osteoarthritis of the left shoulder, mid back pain Plan:: Ordering Physician: Amado Saleem Date of Service: 10/19/21 Procedure(s): MR thoracic spine wo [facility] Accession Number(s): [id number] cc: Bipin Stahl MD; Emerson Vera MD~ PROCEDURE INFORMATION: Exam: MR Thoracic Spine Without Contrast Exam date and time: 10/19/2021 4:04 PM Age: 60 years old Clinical indication: Pain in thoracic spine; With radiculopathy; Left; Additional info: Thoracic pain. Thoracic pain x years. Left arm pain with numbness TECHNIQUE: Imaging protocol: Multiplanar magnetic resonance images of the thoracic spine without contrast. COMPARISON: US SPINAL CANAL CONTENT 08/10/2020 10:03 AM FINDINGS: Vertebrae: An incidental 11 mm hemangioma is present in the T6 vertebral body. Additional small hemangiomas are present in the T4 and L1 vertebral bodies. There are small high T2 signal lesions in the T8, T9, and T12 vertebral bodies. These are difficult to visualize on the T1 weighted sequence but most likely represent lipid poor hemangiomas. There is no acute fracture. Alignment is anatomic. Spinal cord: Normal signal. No cord compression. Discs/Spinal canal/Neural foramina: Minor degenerative changes of the thoracic spine are present. There is no significant spinal canal stenosis. Other bones/joints: Multiple chronic left-sided rib fractures are noted. Soft tissues: Unremarkable. IMPRESSION: 1. No acute abnormality. 2. Chronic findings as discussed above. : There are no acute abnormalities per the thoracic MRI. Patient is tende
== END ==
PROVIDERS: Visit Provider Student in an Organized Health Care Education/Training Program
DX: M54.6 Pain in thoracic spine (principal); M79.18 Myalgia, other site; M19.012 Primary osteoarthritis, left shoulder
CPT/HCPCS: 99212; G0463

== ENCOUNTER → 2021-12-01 13:48 | Outpatient (CLI) | payer MEDICARE, SELFPAY ==
--- NOTE | 2021-12-01 13:48 | MM_ITS ---
PROCEDURE INFORMATION: Exam: MG Bilateral Diagnostic Breast Tomosynthesis Exam date and time: 12/01/2021 1:52 PM Age: 60 years old Clinical indication: Six-month follow-up for probably benign fat necrosis in the left breast at 12 o'clock and in the anterior right breast, from 04/03/2021 and 06/01/2021. TECHNIQUE: Imaging protocol: Bilateral Diagnostic tomosynthesis and 2D mammography including computer-aided detection (CAD) when performed. Unilateral or bilateral exam. COMPARISON: 1. MG MM DIG MAMM BI DX W/CAD 06/01/2021 1:01 PM 2. MG MM DIG SCREENING MAMM BI W/CAD 04/03/2021 1:26 PM 3. MG MM DIG SCREENING MAMM BI W/CAD 03/31/2020 9:16 AM 4. MG MM DIG SCREENING MAMM BI W/CAD 04/14/2019 9:16 AM FINDINGS: MAMMOGRAPHY: Breast composition: There are scattered areas of fibroglandular density. Mass: None. Architectural distortion: None. Calcifications: New broad areas of punctate densities, more likely artifacts, in the left central and inner lower breast, over approximately 6.0 and 8.5 cm respectively. The findings in the inner lower breast are seen related to the skin in the MLO view. The findings in the central breast are not well seen in the oblique view. Stable right retroareolar punctate calcifications as well as adjacent calcifications with lucent centers. Asymmetric density: Resolved nodular asymmetry in the left upper inner quadrant, posterior 3rd. Skin thickening: None. Axillary adenopathy: None. IMPRESSION: New densities in the left breast, mostly related to the skin (which can be correlated clinically) - in the lower breast, less well seen in the central breast - suggest six-month follow-up left mammogram (for central densities), unless otherwise clinically indicated. Stable right retroareolar calcifications and resolved left upper inner asymmetry. ASSESSMENT: BI-RADS Category 3: Probably benign
== END ==
PROVIDERS: PCP Emergency Medicine; Visit Provider Emergency Medicine
DX: R92.8 Other abnormal and inconclusive findings on diagnostic imaging of breast (principal)
CPT/HCPCS: 77062; 77066; G0279

== ENCOUNTER → 2022-02-20 07:21 | Outpatient (CLI) | payer MEDICARE, SELFPAY ==
--- NOTE | 2022-02-20 07:21 | NM_ITS ---
APPROVED REPORT Exam: Nuclear Stress Test Indication: Chest pain, SOB, CAD, HTN, DM, High cholesterol, Family history Patient Location: Outpatient Stress Tech: Hillary Cabral [place] Tech:[employer], ARRT, RT (R)(N) Ht: 5 ft 3 in Wt: 200 lbs Bra Size: 44DDD HR: 76 bpm BP: 91/53 mmHg BSA: 1.93 m2 TID: 1.48 BMI: 35.4 History: Chest pain, SOB, CAD, HTN, DM, High cholesterol, Family history Procedure: Patient received a 0.4 mg of intravenous Lexiscan, resting heart rate 76 bpm, resting blood pressure 91/53 mmHg, with Lexiscan maximum heart rate achived was 88 bpm which is Less than 85 % of the maximum predicted heart rate and blood pressure was 100/58 mmHg. With Lexiscan, patient denied any complaint of chest pain. Electrocardiogram No significant vertigo shows sinus rhythm, with Lexiscan there is less than 1.[address] segment depression noted from the baseline EKG. The EKG portion of the Lexiscan is nondiagnostic. Cardiac Stress and Resting SPECT Images: Cardiac Stress and Resting SPECT images were obtained using technetium 99m Myoview 30.9 mCi stress and 10.43 mCi at rest. Gated SPECT analysis of segmental wall motion and calculation of the ejection fraction was present. Prone images were also obtained. This study is technically very limited due to patient's body habitus, there appears to be reversible defect involving the anterior apical wall, raising the concern for presence of reversible ischemia, computer derived ejection fraction is over 65% with no regional wall motion abnormality, there is transient ischemic dilatation of the left ventricle seen. Conclusion: 1. The EKG portion of the Lexiscan is nondiagnostic. 2. Technically difficult and limited perfusion imaging due to patient's body habitus, likely due to his anterior wall reversible ischemia with transient ischemic dilatation of the left ventricle, computer derived ejection fraction is over 65% with no regional wall motion abnormality, right ventricle is normal size and contractility. 3. Likely abnormal Lexiscan Myoview study. Electronically signed by : Alfred Raman MD 02/20/2022 20:03:17
--- NOTE | 2022-02-20 08:53 | HMH.ITSHM ---
Current Home Medications as stated by this patient Parul Leone or outside sales representative insurance. []ATOGEPANT ARIOPIPRAZOLE ALENDRONATE ALBUTEROL VITAMIN D3 CETIRIZINE BENZONATATE AZELASTINE ATORVASTATIN FUROSEMIDE FLUTICASONE IRON FLUOXETINE VITAMIN D2 DICYCLOMINE CYCLOBENZAPRINE TRAZODONE TRAMADOL SPIRONOLACTONE RIMEGEPANT POTASSIUM PHENTERAMINE LISINOPRIL OMEPRAZOLE NYSTATIN MONTELUKAST METOPROLOL METFORMIN MAGNESIUM KETOTIFEN IPRATROPIUM HYDROXYZINE HYDROCODONE GABEPENTIN
--- NOTE | 2022-02-20 09:33 | CA_ITS ---
APPROVED REPORT Exam: Pharmacologic Technologist: Hillary Mcgee, Ht: 5 ft 3 in Wt: 204 lbs BSA: 1.95 m2 HR: 75 bpm BP: 91/53 mmHg Medical History Medications: Lisinopril,,,,, Omeprazole,,,,, Metoprolol,,,,, Metformin,,,,, Gabapentin,,,,, Iron,,,,, Lasix,,,,, Lipitor,,,,, Albuterol,,,,, Tramadol,,,,, ZYRTEC,,,,, ADVAIR,,,,, Stress Test Details Test: LEXISCAN Reason for pharmacologic stress test: physical limitation. HR Resting HR: 76 bpm Max Heart Rate (APMHR): 160.507112 bpm Max HR Achieved: 88 bpm Target HR (85% APMHR): 136.381997 bpm % of APMHR: 55.00 Recovery HR: 82 bpm BP Resting BP: 91/53 mmHg Max BP: 100/58 mmHg Recovery BP: 100.0/58.0 mmHg ECG Resting ECG: NSR, cannot R/O old inferior NH Clinical Exercise duration: 04:00 min Highest Stage Achieved: Stress ECG Conclusion Symptoms: SOA, very brief chest tightness, mild head discomfort. Arrhythmias/Ectopy: None ST-T Changes: No significant changes. Conclusion: Unremarkable Lexiscan stress. Myoview images reported separately. Electronically signed by : Alfred Raman MD 02/20/2022 19:59:23
== END ==
PROVIDERS: PCP Emergency Medicine; Visit Provider Nurse Practitioner Family
DX: I20.9 Angina pectoris, unspecified (principal); I51.89 Other ill-defined heart diseases; R06.00 Dyspnea, unspecified
CPT/HCPCS: 78452; 93017; A9502; J2785

== ENCOUNTER → 2022-02-23 21:33 | Outpatient (CLI) | payer MEDICARE, SELFPAY ==
[2022-02-23 15:32] LABS: Amphetamine/Metha Screen,Urine Negative ng/ml (<1000); Barbiturates Screen,Urine Negative ng/ml (<200)
[2022-02-23 15:34] LABS: Benzodiazepines Screen,Urine Negative ng/ml (<200)
[2022-02-23 15:35] LABS: Cannabinoid Screen,Urine Negative ng/ml (<50); Cocaine Screen,Urine Negative ng/ml (<300)
[2022-02-23 15:37] LABS: Methadone Screen,Urine Negative ng/ml (<300)
[2022-02-23 15:38] LABS: Opiate Screen,Urine Negative ng/ml (<300); Phencyclidine Screen,Urine Negative ng/ml (<25)
== END ==
PROVIDERS: PCP Emergency Medicine; Visit Provider Emergency Medicine
DX: M51.36 Other intervertebral disc degeneration, lumbar region (principal)
CPT/HCPCS: 80305

== ENCOUNTER → 2022-03-03 12:20 | Outpatient (CLI) | payer MEDICARE, SELFPAY ==
[2022-03-03 12:39] LABS: Basophils % 0.7 % (0.1-2.0); Eosinophils # 0.1 K/mm3 (0.0-0.4); Eosinophils % 2.1 % (0.1-12.0); Hematocrit 37.5 % (37.0-47.0); Hemoglobin 12.2 g/dL (12.2-16.2); Lymphocytes # 1.4 K/mm3 (0.7-4.5); Mean Corpuscular HGB Conc 32.4 g/dL (31.8-35.4); Mean Corpuscular Volume 89.5 fl (81-99); Mean Platelet Volume 8.8 fl (7.4-10.4); Monocytes # 0.3 K/mm3 (0.1-1.0); Monocytes % 4.9 % (1.7-9.3); Neutrophils # 4.6 K/mm3 (1.8-7.8); Neutrophils % 71.2 % (37.0-80.0); Platelet Count 438 K/mm3 (142-424); Red Blood Count 4.19 M/mm3 (4.20-5.40); Red Cell Distribution Width 13.2 % (11.5-17.5); White Blood Count 6.5 K/mm3 (4.8-10.8)
[2022-03-03 13:12] LABS: Chloride 106 mmol/L (98-107); Sodium 140 mmol/L (136-145)
[2022-03-03 13:15] LABS: Anion Gap 15.5 mEq/L (5-15); Blood Urea Nitrogen 14 mg/dl (7-17); Calcium 8.3 mg/dl (8.4-10.2); Carbon Dioxide 25 mmol/L (22.0-30.0); Estimated Glomerular Filt Rate 85 ml/min (>60); GFR (African American) 103 ML/MIN (>60); Glucose 112 mg/dl (74-100)
[2022-03-03 13:25] LABS: Potassium 6.5 mmoL/L (3.5-5.1)
== END ==
PROVIDERS: PCP Emergency Medicine; Visit Provider Nurse Practitioner
DX: E78.2 Mixed hyperlipidemia (principal); I11.9 Hypertensive heart disease without heart failure; I25.118 Atherosclerotic heart disease of native coronary artery with other forms of angina pectoris; R07.89 Other chest pain; R94.30 Abnormal result of cardiovascular function study, unspecified
CPT/HCPCS: 36415; 80048; 85025; C9803; U0003; U0005

== ENCOUNTER 2022-03-03 13:48 | Inpatient (IN) | payer MEDICARE, SELFPAY ==
[2022-03-03] VITALS (9 sets, daily range): BP systolic 94–110; BP diastolic 42–70; PULSE 65–75; RESP 16–18; TEMP 36.6–36.7; O2SAT 93–98; BMI 35.4; BMI 35.6
--- NOTE | 2022-03-03 14:02 | ECG_ITS ---
APPROVED REPORT Exam: Resting ECG HR:81 bpm ECG Measurements Heart Rate 81 AXES HI 155 P 36 QRSd 106 QRS 13 QT 376 T 20 QTc 414 Conclusion SINUS RHYTHM WITH OCCASIONAL SUPRAVENTRICULAR PREMATURE COMPLEXES Isolated Q in III - old finding ABNORMAL ECG UNCONFIRMED REPORT Electronically signed by : Rui Ortiz MD 03/05/2022 15:15:10
--- NOTE | 2022-03-03 14:44 | HMH.EDGENADL ---
Discharge Plan Disposition Patient Disposition: Admitted As Inpatient Condition: Fair Prescriptions Prescriptions: No Action lisinopril 2.5 mg tablet 2.5 mg PO DAILY Qty: 90 3RF atorvastatin 80 mg tablet 40 mg PO DAILY fluticasone propion-salmeterol [Advair Diskus] 500-50 mcg/dose blister with device 1 inh IH BID Qty: 180 3RF azelastine 137 mcg (0.1 %) aerosol,spray 1 spray NS BID 90 Days Qty: 30 3RF Rx Instructions: administer into each nostril ipratropium-albuterol 0.5 mg-3 mg(2.5 mg base)/3 mL solution for nebulization 3 ml IH QID PRN (Reason: shortness of breath or wheezing) Qty: 90 6RF fluticasone propion-salmeterol [Wixela Inhub] 250-50 mcg/dose blister with device 1 inh inhalation BID furosemide 40 mg tablet 40 mg PO BID Qty: 180 3RF spironolactone 50 mg tablet 50 mg PO BID Qty: 180 3RF tramadol 50 mg tablet 50 mg PO TID Qty: 90 1RF gabapentin 600 mg tablet 1,200 mg PO TID 30 Days Qty: 180 1RF hydrocodone-acetaminophen 5-325 mg tablet 1 tab PO TID PRN (Reason: pain) Qty: 90 0RF cetirizine 10 mg tablet 10 mg PO DAILY Qty: 60 0RF ferrous sulfate 142 mg (45 mg iron) tablet extended release 142 mg PO DAILY Qty: 90 0RF cholecalciferol (vitamin D3) 25 mcg (1,000 unit) tablet 25 mcg PO DAILY Qty: 90 3RF colestipol 1 gram tablet 1 g PO DAILY Qty: 90 3RF Qulipta 60 mg tablet 60 mg PO DAILY Qty: 30 5RF metformin 1,000 mg tablet See Rx Instructions .Route .COMPLEX Qty: 180 2RF Rx Instructions: TAKE ONE TABLET BY MOUTH TWICE A DAY trazodone 50 mg tablet See Rx Instructions .Route .COMPLEX Qty: 180 2RF Rx Instructions: TAKE 2 TABLETS BY MOUTH EVERY NIGHT AT BEDTIME FOR SLEEP (DME) blood-glucose meter Kit See Rx Instructions .ROUTE .MEDSUPPLY Qty: 1 0RF Rx Instructions: As directed hydroxyzine pamoate 25 mg capsule See Rx Instructions .Route .COMPLEX Qty: 90 3RF Rx Instructions: TAKE 1 CAPSULE EVERY DAY FOR SLEEP ergocalciferol (vitamin D2) 1,250 mcg (50,000 unit) capsule See Rx Instructions .Route .COMPLEX Qty: 12 3RF Rx Instructions: TAKE 1 CAPSULE ONCE WEEKLY FOR SUPPLEMENT albuterol sulfate 90 mcg/actuation HFA aerosol inhaler 2 inh IH Q6HP PRN (Reason: Shortness Of Breath) Qty: 8.5 6RF Rx Instructions: --SHAKE WELL-- AND INHALE 2 PUFFS EVERY 6 HOURS WITH SPACER magnesium oxide 400 mg (241.3 mg magnesium) tablet See Rx Instructions .ROUTE .COMPLEX Qty: 90 3RF Dose Instruction: TAKE 1 TABLET EVERY DAY FOR SUPPLEMENT Rx Instructions: TAKE 1 TABLET EVERY DAY FOR SUPPLEMENT alendronate 70 mg tablet See Rx Instructions .ROUTE .COMPLEX Qty: 12 0RF Dose Instruction: TAKE 1 TABLET EVERY WEEK FOR OSTEOPOROSIS Rx Instructions: TAKE 1 TABLET EVERY WEEK FOR OSTEOPOROSIS dicyclomine 10 mg capsule See Rx Instructions .ROUTE .COMPLEX Qty: 480 0RF Dose Instruction: TAKE 2 CAPSULES FOUR TIMES DAILY FOR STOMACH (MAY CAUSE DROWSINESS) Rx Instructions: TAKE 2 CAPSULES FOUR TIMES DAILY FOR STOMACH (MAY CAUSE DROWSINESS) nystatin 100,000 unit/gram powder See Rx Instructions .ROUTE .COMPLEX Qty: 60 0RF Dose Instruction: APPLY TO AFFECTED AREA TWICE A DAY NEEDED FOR YEAST Rx Instructions: APPLY TO AFFECTED AREA TWICE A DAY NEEDED FOR YEAST fluoxetine 40 mg capsule See Rx Instructions .ROUTE .COMPLEX Qty: 180 0RF Dose Instruction: TAKE 2 CAPSULES EVERY DAY FOR MOOD Rx Instructions: TAKE 2 CAPSULES EVERY DAY FOR MOOD clopidogrel 75 mg tablet See Rx Instructions .ROUTE .COMPLEX Qty: 90 0RF Dose Instruction: TAKE 1 TABLET EVERY DAY Rx Instructions: TAKE 1 TABLET EVERY DAY phentermine [Adipex-P] 37.5 mg tablet 37.5 mg PO DAILY Qty: 30 0RF Rx Instructions: must administer 30 minutes before or 1-2 hours after breakfast ketotifen fumarate 0.02
[2022-03-03 14:48] LABS: Alanine Aminotransferase 27 U/L (12-78); Albumin Level 3.7 g/dl (3.5-5.0); Albumin/Globulin Ratio 1.4 (1.1-1.8); Alkaline Phosphatase 149 U/L (38-126); Anion Gap 13.7 mEq/L (5-15); Aspartate Amino Transferase 30 U/L (14-36); Blood Urea Nitrogen 14 mg/dl (7-17); Calcium 8.5 mg/dl (8.4-10.2); Carbon Dioxide 29 mmol/L (22.0-30.0); Chloride 105 mmol/L (98-107); Creatinine Clearance Estimated 122 mL/min (50-200); Estimated Glomerular Filt Rate 85 ml/min (>60); GFR (African American) 103 ML/MIN (>60); Globulin 2.6 g/dL (1.3-3.2); Glucose 64 mg/dl (74-100); Sodium 140 mmol/L (136-145); Total Protein,Serum 6.3 g/dl (6.3-8.2)
[2022-03-03 14:56] LABS: Bilirubin,Total < 0.1 mg/dl (0.2-1.3)
[2022-03-03 14:57] LABS: Potassium 7.7 mmoL/L (3.5-5.1)
--- NOTE | 2022-03-03 15:31 | PC.NURSE ---
Paged Dr. Stahl for Dr. Coe.
--- NOTE | 2022-03-03 15:31 | PC.NURSE ---
Dr. Coe is speaking with Dr. Stahl at this time about pt.
--- NOTE | 2022-03-03 15:32 | PC.NURSE ---
pt up to bathroom
--- NOTE | 2022-03-03 15:35 | PC.NURSE ---
Dr Coe spoke with Dr Stahl pt to be admitted with hyperkalemia
--- NOTE | 2022-03-03 16:08 | PC.NURSE ---
med list verified with pt and family. plan of care discussed. questions encouraged and answered. pt v/u
[2022-03-03 16:22] LABS: Influenza A, PCR Not Detected (NotDetected); Influenza B, PCR Not Detected (NotDetected)
--- NOTE | 2022-03-03 16:36 | PC.NURSE ---
ROUNDED ON PT. UPDATED ON POC. NO NEEDS AT THIS TIME. FAMILY AT BEDSIDE
[2022-03-03 16:49] LABS: Coronavirus 19, PCR Detected (NotDetected)
--- NOTE | 2022-03-03 17:30 | PC.NURSE ---
1730 REPORT TO César AGRAWAL RN
[2022-03-03 17:44] LABS: Basophils # 0.1 K/mm3 (0-0.2); Eosinophils # 0.1 K/mm3 (0.0-0.4); Eosinophils % 2.1 % (0.1-12.0); Hematocrit 39.2 % (37.0-47.0); Hemoglobin 12.9 g/dL (12.2-16.2); Lymphocytes # 1.5 K/mm3 (0.7-4.5); Lymphocytes % 23.3 % (10-50); Mean Corpuscular Hemoglobin 30.1 pg (27.0-31.2); Mean Corpuscular Volume 91.2 fl (81-99); Monocytes # 0.4 K/mm3 (0.1-1.0); Monocytes % 5.8 % (1.7-9.3); Neutrophils # 4.4 K/mm3 (1.8-7.8); Neutrophils % 67.8 % (37.0-80.0); Platelet Count 435 K/mm3 (142-424); Red Blood Count 4.29 M/mm3 (4.20-5.40); Red Cell Distribution Width 13.2 % (11.5-17.5); White Blood Count 6.5 K/mm3 (4.8-10.8)
[2022-03-03 17:48] LABS: Anion Gap 14.8 mEq/L (5-15); Blood Urea Nitrogen 14 mg/dl (7-17); Calcium 8.6 mg/dl (8.4-10.2); Carbon Dioxide 27 mmol/L (22.0-30.0); Chloride 105 mmol/L (98-107); Creatinine Clearance Estimated 122 mL/min (50-200); Estimated Glomerular Filt Rate 85 ml/min (>60); GFR (African American) 103 ML/MIN (>60); Glucose 61 mg/dl (74-100); Sodium 139 mmol/L (136-145)
[2022-03-03 17:51] LABS: Potassium 7.8 mmoL/L (3.5-5.1)
--- NOTE | 2022-03-03 17:52 | PC.NURSE ---
patient arrived by wheelchair to floor from ED
--- NOTE | 2022-03-03 18:49 | PC.NURSE ---
Patient arrived to floor VSS. Patient is asymptomatic with critical level K+ 7.8 - provider aware. No s/s of acute distress noted, call light within reach, bed at lowest level; will continue to monitor.
--- NOTE | 2022-03-03 19:26 | PC.NURSE ---
cardiac diet put in at this time from report given from OIL HEATER INSTALLERMyra to [facility]
[2022-03-03 22:22] LABS: POC Glucose,Bedside 194 (70-110)
[2022-03-04] VITALS (10 sets, daily range): BP systolic 102–141; BP diastolic 56–91; PULSE 60–95; RESP 16–20; TEMP 36.6–37.1; O2SAT 90–98; BMI 35.6; BMI 78.7
[2022-03-04 01:32] LABS: POC Glucose,Bedside 147 (70-110)
[2022-03-04 05:20] LABS: POC Glucose,Bedside 146 (70-110)
--- NOTE | 2022-03-04 05:20 | PC.NURSE ---
pt has been awake t/o shift, remains on room air, no complaints of SOA or pain, FSBS Q4, 194, 147, and 146 so far this shift, has ambulated to BR with SB assist, 1900 mL out so far this shift
[2022-03-04 07:27] LABS: Anion Gap 14.6 mEq/L (5-15); Blood Urea Nitrogen 11 mg/dl (7-17); Calcium 8.9 mg/dl (8.4-10.2); Carbon Dioxide 30 mmol/L (22.0-30.0); Chloride 88 mmol/L (98-107); Creatinine Clearance Estimated 68 mL/min (50-200); Estimated Glomerular Filt Rate 85 ml/min (>60); GFR (African American) 103 ML/MIN (>60); Glucose 131 mg/dl (74-100); Potassium 4.6 mmoL/L (3.5-5.1); Sodium 128 mmol/L (136-145)
--- NOTE | 2022-03-04 09:54 | EXP.HP ---
History of Present Illness *Admission Date: 03/03/22 *Reason for visit:: abn labs - cad *History of present illness: this patient presented to the ed - a 61-year-old female with history of CAD status post stenting not currently on anticoagulation presenting with lab abnormality.? Patient states that she is supposed to have heart catheterization and was having routine labs drawn today.? Potassium was elevated, so sent to ED for further evaluation.? Patient denies chest pain, shortness of breath, nausea, vomiting, weakness, confusion, neurologic deficits, palpitations, or any other concerning symptoms.pt was admitted for eval and treatment [facility] Medical History Abnormal electrocardiography Chest pain Chest pain Dyspnea Dyspnea Encounter for pre-operative cardiovascular clearance HHD (hypertensive heart disease) Preoperative clearance Sinus tachycardia Swelling of left lower extremity Social History Smoking Status: Never smoker second hand exposure: No alcohol intake: never substance use type: denies use current occupational status: unemployed Travel in the last 8 weeks: None household members: family housing: house current occupational exposures/hazards: No caffeine: Yes Review of Systems Review of Systems Review of systems:: pertinent systems reviewed and negative unless documented below Constitutional Constitutional: Reports fatigue, Denies fever(s) and Denies headache(s) Eyes Eyes: Denies diplopia ENT Ears, Nose, Mouth, and Throat: Denies headache(s) *Cardiovascular Cardiovascular: Denies dyspnea and Denies edema *Respiratory Respiratory: Denies dyspnea *Gastrointestinal Gastrointestinal: Denies change in bowel habits *Genitourinary Genitourinary: Denies pelvic pain *Musculoskeletal Musculoskeletal: Denies back pain Integumentary/Breasts Skin/Breast: Denies rash *Neurologic Neurologic: Denies behavioral changes, Denies convulsions and Denies headache(s) Psychiatric Psychiatric: Denies behavioral changes Endocrine Endocrine: Reports fatigue Meds Home Medications and Allergies Home Medications Medication Instructions Recorded Confirmed Type cetirizine 10 mg tablet 10 mg PO DAILY Allergy symptoms 04/14/21 03/03/22 Rx #60 tabs ferrous sulfate 142 mg (45 mg 142 mg PO DAILY Supplement #90 tabs 05/26/21 03/03/22 Rx iron) tablet,extended release cholecalciferol (vitamin D3) 25 25 mcg PO DAILY SUPPLIMENT #90 tabs 07/03/21 03/03/22 Rx mcg (1,000 unit) tablet potassium chloride 20 mEq 20 meq PO DAILY Supplement 08/11/21 03/03/22 History tablet,extended release(part/cryst) vits no.126-ferrous fum 1 tab PO DAILY pain 08/11/21 03/03/22 History 28 mg iron-folic acid 800 mcg tablet rimegepant 75 mg disintegrating 75 mg PO DAILYP PRN Migraine 08/11/21 03/04/22 History tablet Headache lisinopril 2.5 mg tablet 2.5 mg PO DAILY BLOOD PRESSURE #90 08/16/21 03/03/22 Rx tabs colestipol 1 gram tablet 1 g PO DAILY Cholesterol #90 tabs 08/21/21 03/03/22 Rx atorvastatin 80 mg tablet 40 mg PO DAILY Cholesterol 09/11/21 03/03/22 History atogepant 60 mg tablet (Qulipta) 60 mg PO DAILY chronic intractable 09/21/21 03/03/22 Rx migraine #30 tabs blood-glucose meter #1 ea 09/27/21 03/03/22 Rx aripiprazole 5 mg tablet 5 mg PO DAILY MOOD 11/02/21 03/04/22 History fluticasone propionate 50 2 spray intranasal DAILY ALLERGIES 11/02/21 03/04/22 History mcg/actuation nasal spray,suspension metoprolol succinate 50 mg 50 mg PO DAILY BLOOD PRESSURE 11/02/21 03/04/22 History tablet,extended release 24 hr montelukast 10 mg tablet 10 mg PO HS ALLERGIES 11/02/21 03/04/22 History omeprazole 20 mg capsule,delayed 20 mg PO DAILY STOMACH 11/02/21 03/03/22 History release albuterol sulfate 90 mcg/actuation 2 inh inhalation Q6HP PRN 11/24/21 03/03/22 Rx aerosol inhaler Shortness O
[2022-03-04 10:15] LABS: POC Glucose,Bedside 178 (70-110)
[2022-03-04 10:42] LABS: Thyroid Stimulating Hormone 3.36 uIU/mL (0.465-4.68)
--- NOTE | 2022-03-04 10:52 | P.CONPHA_ITS ---
[facility] Pharmacy VTE Monitoring Patient Demographics Admission date: 03/04/22 Report Date: 03/04/22 Time: 10:52 Patient Allergies milk Adverse Reaction (Mild, Verified 02/28/22 09:26) Nausea Height: 1.6 m Weight: 201.4 kg Current Active Problems (Updated 03/04/22 @ 10:14 by Bipin Stahl MD) Hyponatremia (Acute) Obesity (Acute) Acute hyperkalemia (Acute) CAD (coronary artery disease) (Chronic) VTE Risk Labs: VTE Related Lab Results Hgb 12.9 g/dL (12.2-16.2) 03/03/22 14:00 Hct 39.2 % (37.0-47.0) 03/03/22 14:00 Plt Count 435 K/mm3 (142-424) H 03/03/22 14:00 BUN 11 mg/dl (7-17) 03/04/22 07:16 Creatinine 0.70 mg/dl (0.52-1.04) 03/04/22 07:16 Estimated Creat Clear 68 mL/min (50-200) 03/04/22 07:16 VTE Risk Level: Very Low Risk Prophylaxis VTE Prophylaxis Ordered?: Yes Types of VTE Prophylaxis: TEDS Knee High Location of Applied Device: Bilateral Lower Extremeties
[2022-03-04 12:30] LABS: POC Glucose,Bedside 168 (70-110)
[2022-03-04 16:45] LABS: POC Glucose,Bedside 135 (70-110)
--- NOTE | 2022-03-04 17:58 | PC.NURSE ---
pt has done well this shift.alert x4, lungs clear/diminished, 02 has been 92-98% on RA, tolerating well. no c/o n/v/p or cough. NPO after midnight for cathlab in the AM, pt aware. morning labs showed K is now 4.6.
[2022-03-04 21:30] LABS: POC Glucose,Bedside 125 (70-110)
[2022-03-05] VITALS (20 sets, daily range): BP systolic 87–148; BP diastolic 52–79; PULSE 57–82; RESP 16–19; TEMP 36.6–37.3; O2SAT 91–96; BMI 34.9
--- NOTE | 2022-03-05 | IR_ITS ---
APPROVED REPORT Patient Location: Inpatient PROCEDURES Left heart catheterization Left ventriculogram Selective coronary angiogram INDICATION Known coronary artery disease with unstable angina Informed consent was obtained prior to the procedure. COMPLICATIONS none Estimated Blood Loss: less than 10 ml TECHNIQUE One percent lidocaine used to anesthetize the right anterior aspect of the wrist. The right radial artery was accessed via the Seldinger technique. A 6 Malagasy sheath was placed in the right radial artery. 2.5 mg of verapamil, 800 mcg of nitroglycerin, 1mg Lidocaine and 5000 U Heparin were given through the arterial sheath. The papa catheter was also used to perform left heart catheterization, left ventriculogram and selective coronary angiogram. At the end of the procedure the sheath was removed good hemostasis was achieved using Traclet band, patient was transferred to the postop holding area in stable condition. ANGIOGRAPHIC RESULTS The left main artery Normal The left anterior descending artery Has a stent in the proximal segment which is widely patent free of in-stent restenosis. Just proximal to the stent is an eccentric 10 to 20% nonflow limiting stenosis. The mid LAD then has 10 to 20% luminal irregularities The circumflex artery Nondominant normal The right coronary artery Large dominant with diffuse 10% luminal irregularities The LANDERS ventriculogram reveals Normal 65% The left ventricular end-diastolic pressure 15 mmHg IMPRESSION Widely patent proximal LAD stent Normal ejection fraction Borderline elevated LVEDP PLAN 1. Continue medical management 2. Consider noncardiac evaluation Electronically signed by : James Gonzales MD 03/05/2022 14:51:56
--- NOTE | 2022-03-05 03:59 | PC.NURSE ---
Addendum entered by Margaret Mendoza, RNA 03/05/22 04:03: Tele shows NSR. HR 70-73. Original Note: Pt is alert and oriented x4, pt has had no complaints this shift. Pt has been up to the bathroom with standby assist. Lung sounds are clear, bowel sounds active, abdomen soft and nontender. O2 sat >90% on room air. Call light in reach and working.
--- NOTE | 2022-03-05 05:12 | PC.NURSE ---
pt weight from yesterday was accidentally entered as kg instead lbs.
[2022-03-05 05:47] LABS: POC Glucose,Bedside 142 (70-110)
--- NOTE | 2022-03-05 10:00 | EXP.CARD.CON ---
History of Present Illness History of Present Illness Consult date: 03/05/22 Requesting physician: Bipin Stahl Chief complaint: abnormal lab Additional Medical History:: Past medical hx CAD Diastolic dysfunction HTN HLD History of present illness: 61 year old white female presented to ED on 03/03 with complaint of abnormal labs. Patient was getting outpatient labs completed for scheduled LHC today. Potassium was elevated so patient was sent to ER. Inital potassium in ER was 7.7. Of note, patient does take aldactone 50mg QD. Patient scheduled for LHC today due to abnormal stress test and unstable angina. potassium yesterday was 4.6, patient did test positive for screening covid but is asymptomatic. Patient denies any complaint this morning. PFSH PFS Medical History Abnormal electrocardiography Chest pain Chest pain Dyspnea Dyspnea Encounter for pre-operative cardiovascular clearance HHD (hypertensive heart disease) Preoperative clearance Sinus tachycardia Swelling of left lower extremity Social History Smoking Status: Never smoker second hand exposure: No alcohol intake: never substance use type: denies use current occupational status: unemployed Travel in the last 8 weeks: None household members: family housing: house current occupational exposures/hazards: No caffeine: Yes Review of Systems Review of Systems Review of systems:: pertinent systems reviewed and negative unless documented below Constitutional Constitutional: Denies headache(s) ENT Ears, Nose, Mouth, and Throat: Denies headache(s) *Cardiovascular Cardiovascular: Reports chest pain *Respiratory Respiratory: Reports system reviewed and no additional complaints, except as documented *Gastrointestinal Gastrointestinal: Reports system reviewed and no additional complaints, except as documented *Neurologic Neurologic: Denies behavioral changes, Denies convulsions and Denies headache(s) Psychiatric Psychiatric: Denies behavioral changes Exam Data for Last 24 hours Vital signs and Labs for Last 24 Hours: Temp Pulse Resp BP Pulse Ox 98.5 F 75 18 118/70 95 03/05/22 08:00 03/05/22 08:00 03/05/22 08:00 03/05/22 08:00 03/05/22 08:00 Laboratory Results - last 24 hr 03/04/22 07:16: TSH 3.36, Thyroxine (T4) 10.0 03/04/22 10:07: POC Glucose 178 H 03/04/22 12:23: POC Glucose 168 H 03/04/22 16:32: POC Glucose 135 H 03/04/22 21:21: POC Glucose 125 H 03/05/22 05:36: POC Glucose 142 H I & O for Last 24 hours: Intake & Output 03/02/22 03/03/22 03/04/22 03/05/22 23:59 23:59 23:59 23:59 Intake Total 2678 / 2678 924 / 924 Output Total 400 / 1900 6300 / 6300 900 / 900 Balance -400 / -1900 -3622 / -3622 Weight 201 lb 4 oz 444 lb 0.176 oz 197 lb 4 oz Constitutional Constitutional: no acute distress *Routine Respiratory Exam Respiratory: Present CTA bilaterally and symmetric chest movement *Routine Cardiovascular Exam Cardiovascular: Present RRR, Normal S1 and Normal S2 *Routine Abdominal Exam Abdominal: Present soft and normoactive bowel sounds; Absent tenderness *Routine Extremities Exam Extremities: Present full ROM and normal capillary refill; Absent edema *Routine Skin Exam Skin: Present intact, dry and warm Detailed Neck Exam: Thyroids Thyroid: Absent bruit Meds Home Medications and Allergies Home Medications Medication Instructions Recorded Confirmed Type cetirizine 10 mg tablet 10 mg PO DAILY Allergy symptoms 04/14/21 03/03/22 Rx #60 tabs ferrous sulfate 142 mg (45 mg 142 mg PO DAILY Supplement #90 tabs 05/26/21 03/03/22 Rx iron) tablet,extended release cholecalciferol (vitamin D3) 25 25 mcg PO DAILY SUPPLIMENT #90 tabs 07/03/21 03/03/22 Rx mcg (1,000 unit) tablet potassium chloride 20 mEq 20 meq PO DAILY Supplement 08/11/21 03/03/22 History tablet,extended release(part/c
[2022-03-05 12:25] LABS: Basophils % 0.4 % (0.1-2.0); Eosinophils # 0.1 K/mm3 (0.0-0.4); Eosinophils % 1.4 % (0.1-12.0); Hemoglobin 12.9 g/dL (12.2-16.2); Lymphocytes # 1.3 K/mm3 (0.7-4.5); Lymphocytes % 17.1 % (10-50); Mean Corpuscular HGB Conc 33.9 g/dL (31.8-35.4); Mean Corpuscular Hemoglobin 29.5 pg (27.0-31.2); Mean Platelet Volume 7.1 fl (7.4-10.4); Monocytes # 0.3 K/mm3 (0.1-1.0); Monocytes % 4.2 % (1.7-9.3); Neutrophils # 5.9 K/mm3 (1.8-7.8); Platelet Count 443 K/mm3 (142-424); Red Blood Count 4.37 M/mm3 (4.20-5.40); Red Cell Distribution Width 13.3 % (11.5-17.5); White Blood Count 7.6 K/mm3 (4.8-10.8)
[2022-03-05 12:39] LABS: Anion Gap 12.1 mEq/L (5-15); Blood Urea Nitrogen 9 mg/dl (7-17); Calcium 8.5 mg/dl (8.4-10.2); Carbon Dioxide 26 mmol/L (22.0-30.0); Chloride 96 mmol/L (98-107); Creatinine Clearance Estimated 141 mL/min (50-200); Estimated Glomerular Filt Rate 102 ml/min (>60); GFR (African American) 123 ML/MIN (>60); Glucose 135 mg/dl (74-100); Potassium 4.1 mmoL/L (3.5-5.1); Sodium 130 mmol/L (136-145)
[2022-03-05 17:14] LABS: POC Glucose,Bedside 143 (70-110)
[2022-03-05 17:14] LABS: POC Glucose,Bedside 193 (70-110)
--- NOTE | 2022-03-05 17:46 | PC.NURSE ---
Pt is alert and oriented x4. Lungs are clear, she remains on RA and tolerating well. She is s/p heart cath with no stents placed. Radialband is in place at this time. She's been NSR on telemetry. She has ambulated to the restroom with assist x1. She has denied any complaints thus far. Bed is locked and in the lowest position, call light is within reach.
--- NOTE | 2022-03-05 18:49 | PC.NURSE ---
RADIALBAND REMOVED FOLLOWS: 1700 - 2MLS OUT 1715 - 2 MLS OUT 1730 - 2MLS OUT 1745 - 2MLS OUT 1800 - 2MLS OUT 1815 - 2MLS OUT 1830 - 2MLS OUT 1840 - RADIAL BAND REMOVED; TELFA AND TEGADERM IN PLACE; NO S/S OF HEMATOMA
--- NOTE | 2022-03-05 20:18 | EXP.DC.SUM ---
General Admission date:: 03/03/22 Discharge date: 03/05/22 HPI HPI HPI: this patient presented to the ed - a 61-year-old female with history of CAD status post stenting not currently on anticoagulation presenting with lab abnormality.? Patient states that she is supposed to have heart catheterization and was having routine labs drawn today.? Potassium was elevated, so sent to ED for further evaluation.? Patient denies chest pain, shortness of breath, nausea, vomiting, weakness, confusion, neurologic deficits, palpitations, or any other concerning symptoms.pt was admitted for eval and treatment Hospital Course Hospital Course Hospital Course: pt responded well to treatment for hyperkalemia -pt was seen by card-Assessment and plan (1) Unstable angina: ?Status:?Acute ?Category:?Medical ?Code(s): I20.0 - Unstable angina (2) Acute hyperkalemia: ?Status:?Acute ?Category:?Medical ?Code(s): E87.5 - Hyperkalemia (3) Abnormal stress test: ?Status:?Acute ?Category:?Medical ?Code(s): R94.39 - Abnormal result of other cardiovascular function study (4) HLD (hyperlipidemia): ?Status:?Acute ?Category:?Medical ?Code(s): E78.5 - Hyperlipidemia, unspecified (5) HTN (hypertension): ?Status:?Acute ?Category:?Medical ?Code(s): I10 - Essential (primary) hypertension (6) COVID-19: ?Status:?Acute ?Category:?Medical ?Code(s): U07.1 - COVID-19 Assessment and plan all Dx Assessment and Plan All Dx:: Unstable angina CCS 3 with abnormal outpatient stress test -Proceed with scheduled LHC today. Discussed risks vs. benefits, patient is agreeable. ? Hyperkelemia -Resolved -Can continue to hold aldactone for now. Diastolic dysfunction -Echo lVEDP @ 30 -Holding aldactone due to acute hyperkalemia -Continue lasix 40mg BID HLD -Goal is less then 55, continue atorvastatin 40mg QD HTN -Well controlled -Continue lisinopril 2.5mg QD -Continue Metoprolol ER 50mg QD pt had heart cath aNGIOGRAPHIC RESULTS The left main artery Normal The left anterior descending artery Has a stent in the proximal segment which is widely patent free of in-stent restenosis.? Just proximal to the stent is an eccentric 10 to 20% nonflow limiting stenosis.? The mid LAD then has 10 to 20% luminal irregularities The circumflex artery Nondominant normal The right coronary artery Large dominant with diffuse 10% luminal irregularities The LANDERS ventriculogram reveals Normal 65% The left ventricular end-diastolic pressure 15 mmHg IMPRESSION Widely patent proximal LAD stent Normal ejection fraction Borderline elevated LVEDP PLAN 1. Continue medical management 2. Consider noncardiac evaluation pt was d/c to see pcp and card as op-pt was stable with activity and diet ? Exam Data for Last 24 hours Vital signs and Labs for Last 24 Hours: Temp Pulse Resp BP Pulse Ox 98 F 79 18 94/57 L 91 L 03/05/22 12:00 03/05/22 18:35 03/05/22 18:35 03/05/22 18:35 03/05/22 18:35 Laboratory Results - last 24 hr 03/04/22 21:21: POC Glucose 125 H 03/05/22 05:36: POC Glucose 142 H 03/05/22 11:28: POC Glucose 143 H 03/05/22 12:20: WBC 7.6, RBC 4.37, Hgb 12.9, Hct 38.0, MCV 87.0, MCH 29.5, MCHC 33.9, RDW 13.3, Plt Count 443 H, MPV 7.1 L, Neut % (Auto) 77.0, Lymph % (Auto) 17.1, Wayne % (Auto) 4.2, Eos % (Auto) 1.4, Baso % (Auto) 0.4, Neut # (Auto) 5.9, Lymph # (Auto) 1.3, Wayne # (Auto) 0.3, Eos # (Auto) 0.1, Baso # (Auto) 0.0 03/05/22 12:20: Sodium 130 L, Potassium 4.1, Chloride 96 L, Carbon Dioxide 26, Anion Gap 12.1, BUN 9, Creatinine 0.60, Estimated Creat Clear 141, Estimated GFR 102, Est GFR ( Amer) 123, Glucose 135 H, Calcium 8.5 03/05/22 17:05: POC Glucose 193 H I & O for Last 24 hours: Intake & Output 03/03/22 03/04/22 03/05/22 03/06/22 11:59 11:59 11:59 11:59 Intake Total 1206 / 1206 2396 / 2396 580 / 580 Output Total 3
--- NOTE | 2022-03-05 21:16 | PC.NURSE ---
Addendum entered by Shonda Deleon RN 03/06/22 02:18: prior to discharge, dr castillo made aware of pt temp 99.2 orally, no acute distress Original Note: 2115 pt left via wheelchair with personal belongings to private car in satisfactory condition accompanied by staff, all home medications returned to patient, discharge instructions given with return verbalized understanding, pt alert and oriented x4 and in satisfactory condition upon discharge.
--- NOTE | 2022-03-05 21:16 | PC.NURSE ---
PT LEFT FLOOR VIA WHEELCHAIR AT THIS TIME
[2022-03-06 00:50] LABS: POC Glucose,Bedside 117 (70-110)
--- NOTE | 2022-03-06 13:21 | CARE MANAGER ---
Left message for post-discharge phone interview.
== END 2022-03-05 21:16 | disposition home or self-care (01) | DRG 640 ==
LOC: ER 15:48 → 2ND 16:34
PROVIDERS: Internal Medicine; Admitting Provider Emergency Medicine; Emergency Provider Emergency Medicine; PCP Emergency Medicine; Visit Provider Emergency Medicine
PROC: 4A023N7 Measurement of Cardiac Sampling and Pressure, Left Heart, Percutaneous Approach (ICD-10-PCS; principal; 2022-03-05 12:00)
DX: E87.5 Hyperkalemia (principal); U07.1 COVID-19; I25.110 Atherosclerotic heart disease of native coronary artery with unstable angina pectoris; Z95.5 Presence of coronary angioplasty implant and graft; E66.9 Obesity, unspecified; E87.1 Hypo-osmolality and hyponatremia; Z68.34 Body mass index [BMI] 34.0-34.9, adult
CPT/HCPCS: 36415; 80048; 80053; 82962; 84436; 84443; 85025; 93005; 93458; 94640; 99152; 99285; C1725; C1769; C9803; J1644; Q9967; U0003; U0005

== ENCOUNTER → 2022-03-14 14:20 | Outpatient (CLI) | payer MEDICARE, SELFPAY ==
[2022-03-14 17:19] LABS: Blood Urea Nitrogen 12 mg/dl (7-17); Calcium 8.6 mg/dl (8.4-10.2); Carbon Dioxide 33 mmol/L (22.0-30.0); Chloride 96 mmol/L (98-107); Estimated Glomerular Filt Rate 85 ml/min (>60); GFR (African American) 103 ML/MIN (>60); Glucose 93 mg/dl (74-100); Sodium 136 mmol/L (136-145)
== END ==
PROVIDERS: PCP Nurse Practitioner Family; Visit Provider Nurse Practitioner Family
DX: E87.5 Hyperkalemia (principal)
CPT/HCPCS: 36415; 80048

== ENCOUNTER → 2022-06-04 13:56 | Outpatient (CLI) | payer MEDICARE, SELFPAY ==
--- NOTE | 2022-06-04 13:56 | MM_ITS ---
PROCEDURE INFORMATION: Exam: MG Left Diagnostic Breast Tomosynthesis Exam date and time: 06/04/2022 2:03 PM Age: 61 years old Clinical indication: Six-month follow-up for probably benign densities in the left breast likely related to the skin, from December 01, 2021. TECHNIQUE: Imaging protocol: Left Diagnostic tomosynthesis and 2D mammography including computer-aided detection (CAD) when performed. Unilateral or bilateral exam. COMPARISON: 1. MG MM DIG MAMM BI DX W/CAD 12/01/2021 1:52 PM 2. MG MM DIG MAMM BI DX W/CAD 06/01/2021 1:01 PM 3. MG MM DIG SCREENING MAMM BI W/CAD 04/03/2021 1:26 PM 4. MG MM DIG SCREENING MAMM BI W/CAD 03/31/2020 9:16 AM FINDINGS: MAMMOGRAPHY: Breast composition: There are scattered areas of fibroglandular density. Mass: No suspicious mass. Architectural distortion: None. Calcifications: No suspicious calcifications. Asymmetric density: None. Skin thickening: None. Axillary adenopathy: None. Other: Interval resolved densities which were probably related to powder or cream on the skin for example. IMPRESSION: No mammographic evidence of malignancy. Patient due for bilateral screening mammogram in November 2022, unless otherwise clinically. ASSESSMENT: BI-RADS Category 1: Negative
== END ==
LOC: RAD 13:56
PROVIDERS: PCP Emergency Medicine; Visit Provider Emergency Medicine
DX: R92.8 Other abnormal and inconclusive findings on diagnostic imaging of breast (principal); M79.89 Other specified soft tissue disorders
CPT/HCPCS: 77061; 77065; G0279

== ENCOUNTER 2022-06-30 10:30 | Emergency (ER) | payer MEDICARE, SELFPAY ==
[2022-06-30 10:44] VITALS: BP 111/56; PULSE 78; RESP 15; TEMP 36.9; O2SAT 96; BMI 38.9
--- NOTE | 2022-06-30 11:46 | HMH.EDGENADL ---
Discharge Plan Disposition Patient Disposition: Home, Self-Care Condition: Good Prescriptions Prescriptions: New sulfamethoxazole-trimethoprim [Bactrim DS] 800-160 mg tablet 1 tab PO BID Qty: 20 0RF No Action lisinopril 2.5 mg tablet 2.5 mg PO DAILY Qty: 90 3RF albuterol sulfate 90 mcg/actuation HFA aerosol inhaler 2 inh IH Q6HP PRN (Reason: Shortness Of Breath) Qty: 8.5 6RF Rx Instructions: --SHAKE WELL-- AND INHALE 2 PUFFS EVERY 6 HOURS WITH SPACER ipratropium-albuterol 0.5 mg-3 mg(2.5 mg base)/3 mL solution for nebulization 3 ml IH QID PRN (Reason: shortness of breath or wheezing) Qty: 90 6RF fluticasone propion-salmeterol [Wixela Inhub] 250-50 mcg/dose blister with device 1 inh inhalation BID metoprolol succinate 50 mg tablet extended release 24 hr 50 mg PO DAILY sulfamethoxazole-trimethoprim [Bactrim DS] 800-160 mg tablet 1 tab PO BID Qty: 20 0RF cephalexin 500 mg capsule 500 mg PO QID 10 Days Qty: 40 0RF fluconazole [Diflucan] 150 mg tablet See Rx Instructions PO Q3D Qty: 2 0RF Rx Instructions: one today, then one at end of antibiotic course Emgality Pen 120 mg/mL pen injector 120 mg SQ QMONTH Qty: 1 4RF Rx Instructions: first injection in office, discontinue Qulipta with started Emgality gabapentin 600 mg tablet 1,200 mg PO TID 30 Days Qty: 180 1RF tramadol 50 mg tablet 50 mg PO Q8H PRN (Reason: MILD TO MODERATE PAIN) Qty: 90 1RF hydrocodone-acetaminophen 5-325 mg tablet 1 tab PO TID PRN (Reason: pain) Qty: 90 0RF cetirizine 10 mg tablet 10 mg PO DAILY Qty: 60 0RF ferrous sulfate 142 mg (45 mg iron) tablet extended release 142 mg PO DAILY Qty: 90 0RF cholecalciferol (vitamin D3) 25 mcg (1,000 unit) tablet 25 mcg PO DAILY Qty: 90 3RF colestipol 1 gram tablet 1 g PO DAILY Qty: 90 3RF Qulipta 60 mg tablet 60 mg PO DAILY Qty: 30 5RF fluticasone propionate 50 mcg/actuation spray,suspension See Rx Instructions .ROUTE .COMPLEX Qty: 48 0RF Dose Instruction: USE 2 SPRAYS IN EACH NOSTRIL EVERY DAY DIRECTED FOR ALLERGIES. SHAKE GENTLY Rx Instructions: USE 2 SPRAYS IN EACH NOSTRIL EVERY DAY DIRECTED FOR ALLERGIES. SHAKE GENTLY dicyclomine 10 mg capsule See Rx Instructions .ROUTE .COMPLEX Qty: 720 0RF Dose Instruction: TAKE 2 CAPSULES FOUR TIMES DAILY FOR STOMACH (MAY CAUSE DROWSINESS) Rx Instructions: TAKE 2 CAPSULES FOUR TIMES DAILY FOR STOMACH (MAY CAUSE DROWSINESS) trazodone 50 mg tablet See Rx Instructions .ROUTE .COMPLEX Qty: 180 0RF Dose Instruction: TAKE 2 TABLETS BY MOUTH EVERY NIGHT AT BEDTIME FOR SLEEP / PAIN Rx Instructions: TAKE 2 TABLETS BY MOUTH EVERY NIGHT AT BEDTIME FOR SLEEP / PAIN alendronate 70 mg tablet See Rx Instructions .ROUTE .COMPLEX Qty: 12 0RF Dose Instruction: TAKE 1 TABLET EVERY WEEK FOR OSTEOPOROSIS Rx Instructions: TAKE 1 TABLET EVERY WEEK FOR OSTEOPOROSIS aripiprazole 5 mg tablet See Rx Instructions .ROUTE .COMPLEX Qty: 90 0RF Dose Instruction: TAKE 1 TABLET EVERY DAY Rx Instructions: TAKE 1 TABLET EVERY DAY montelukast 10 mg tablet See Rx Instructions .ROUTE .COMPLEX Qty: 90 0RF Dose Instruction: TAKE 1 TABLET BY MOUTH AT BEDTIME FOR ALLERGY SYMPTOMS Rx Instructions: TAKE 1 TABLET BY MOUTH AT BEDTIME FOR ALLERGY SYMPTOMS dextromethorphan HBr 15 mg capsule 30 mg PO Q8H PRN (Reason: cough) Qty: 30 1RF metformin 1,000 mg tablet See Rx Instructions .ROUTE .COMPLEX Qty: 180 0RF Dose Instruction: TAKE ONE TABLET BY MOUTH TWICE A DAY FOR DIABETES Rx Instructions: TAKE ONE TABLET BY MOUTH TWICE A DAY FOR DIABETES omeprazole 20 mg capsule,delayed release(DR/EC) See Rx Instructions .ROUTE .COMPLEX Qty: 90 0RF Dose Instruction: TAKE 1 CAPSULE EVERY DAY FOR GERD Rx Instructions: TAKE 1 CAPSULE EVERY DAY FOR GERD (D
[2022-06-30 11:52] LABS: Basophils # 0.1 K/mm3 (0-0.2); Basophils % 0.7 % (0.1-2.0); Eosinophils # 0.1 K/mm3 (0.0-0.4); Eosinophils % 1.2 % (0.1-12.0); Hematocrit 33.5 % (37.0-47.0); Hemoglobin 10.7 g/dL (12.2-16.2); Lymphocytes % 24.2 % (10-50); Mean Corpuscular HGB Conc 31.9 g/dL (31.8-35.4); Mean Corpuscular Hemoglobin 26.5 pg (27.0-31.2); Mean Corpuscular Volume 83.1 fl (81-99); Mean Platelet Volume 7.8 fl (7.4-10.4); Monocytes # 0.4 K/mm3 (0.1-1.0); Monocytes % 5.2 % (1.7-9.3); Neutrophils # 5.8 K/mm3 (1.8-7.8); Neutrophils % 68.6 % (37.0-80.0); Platelet Count 501 K/mm3 (142-424); Red Blood Count 4.04 M/mm3 (4.20-5.40); Red Cell Distribution Width 15.5 % (11.5-17.5); White Blood Count 8.4 K/mm3 (4.8-10.8)
[2022-06-30 11:59] LABS: Chloride 99 mmol/L (98-107); Potassium 3.6 mmoL/L (3.5-5.1); Sodium 139 mmol/L (136-145)
[2022-06-30 12:02] LABS: Alanine Aminotransferase 32 U/L (12-78); Albumin Level 4.1 g/dl (3.5-5.0); Albumin/Globulin Ratio 1.4 (1.1-1.8); Alkaline Phosphatase 139 U/L (38-126); Anion Gap 10.6 mEq/L (5-15); Aspartate Amino Transferase 24 U/L (14-36); Bilirubin,Total 0.3 mg/dl (0.2-1.3); Blood Urea Nitrogen 11 mg/dl (7-17); Carbon Dioxide 33 mmol/L (22.0-30.0); Creatinine Clearance Estimated 135 mL/min (50-200); Estimated Glomerular Filt Rate 85 ml/min (>60); GFR (African American) 103 ML/MIN (>60); Total Protein,Serum 7.1 g/dl (6.3-8.2)
[2022-06-30 12:03] LABS: Calcium 8.6 mg/dl (8.4-10.2); Glucose 229 mg/dl (74-100); Lactic Acid 0.9 mmol/L (0.7-2.1)
[2022-06-30 12:08] LABS: C-Reactive Protein 1.4 mg/L (0-4)
[2022-06-30 12:16] LABS: NT Pro Brain Natriuretic Pep. < 11.1 pg/mL (0-125)
[2022-06-30 12:41] LABS: Erythrocyte Sedimentation Rate 55 mm/hr (0-30)
[2022-06-30 13:03] VITALS: BP 101/68; PULSE 72; RESP 14; TEMP 36.6; O2SAT 96
== END 2022-06-30 13:11 | disposition home or self-care (01) ==
PROVIDERS: Emergency Provider Emergency Medicine; PCP Emergency Medicine
DX: L03.116 Cellulitis of left lower limb (principal); L03.115 Cellulitis of right lower limb; S80.812A Abrasion, left lower leg, initial encounter; W55.03XA Scratched by cat, initial encounter; L03.114 Cellulitis of left upper limb; E11.9 Type 2 diabetes mellitus without complications; I11.9 Hypertensive heart disease without heart failure; J45.909 Unspecified asthma, uncomplicated; Z87.891 Personal history of nicotine dependence
CPT/HCPCS: 80053; 83605; 83880; 85025; 85651; 86140; 87040; 99285

== ENCOUNTER → 2022-07-18 14:49 | Outpatient (CLI) | payer MEDICARE, SELFPAY ==
--- NOTE | 2022-07-18 14:51 | CA_ITS ---
FINAL REPORT TECHNIQUE: Color Doppler, duplex Doppler and compression sonography of the left lower extremity deep venous systems was performed. CLINICAL HISTORY: swelling, PT states 50lb weight gain in 2 wks, edema in lower extremities L>R, redness, 3 wks ago pt had cat scratch LLE, cellulitis received antibiotics FINDINGS: There is no evidence of deep venous thrombosis from the level of the groin to the calf. The veins are patent and compressible. IMPRESSION: No evidence of deep venous thrombosis left lower extremity. Reviewed, Interpreted and Dictated by Randy Leach III, MD Transcribed by Addie Jules Authenticated and [facility]
== END ==
PROVIDERS: PCP Emergency Medicine; Visit Provider Nurse Practitioner
DX: L03.116 Cellulitis of left lower limb (principal)
CPT/HCPCS: 93971

== ENCOUNTER → 2022-07-23 09:40 | Outpatient (CLI) | payer MEDICARE, SELFPAY ==
[2022-07-23 15:49] LABS: Cocaine Screen,Urine Negative ng/ml (<300); Methadone Screen,Urine Negative ng/ml (<300)
[2022-07-23 15:50] LABS: Opiate Screen,Urine Negative ng/ml (<300)
[2022-07-23 15:51] LABS: Phencyclidine Screen,Urine Negative ng/ml (<25)
[2022-07-23 15:59] LABS: Barbiturates Screen,Urine Negative ng/ml (<200)
[2022-07-23 16:02] LABS: Benzodiazepines Screen,Urine Negative ng/ml (<200)
[2022-07-23 16:03] LABS: Cannabinoid Screen,Urine Negative ng/ml (<50)
[2022-07-25 18:46] LABS: Amphetamine/Metha Screen,Urine Negative ng/ml (<1000)
== END ==
PROVIDERS: PCP Emergency Medicine; Visit Provider Emergency Medicine
DX: M51.36 Other intervertebral disc degeneration, lumbar region (principal)
CPT/HCPCS: 80305

== ENCOUNTER → 2022-07-31 10:03 | Outpatient (CLI) | payer MEDICARE, SELFPAY ==
--- NOTE | 2022-07-31 10:08 | CA_ITS ---
APPROVED REPORT EXAM: Comprehensive 2D, Doppler, and color-flow Echocardiogram Torch Solderer: Sophy Jasmine, RCS, RVS Ht: 5 ft 3 in Wt: 348lbs BSA: 2.45 BP: 127/72 mmHg Indications: Edema, SOA, OBESITY 2D Dimensions Aortic Root 2.58 cm F: 2.7 - 3.3 LA Volume 83.40 mL Left Atrium 3.99 cm F: 2.7 - 3.8 LA Volume Index 34.04 mL/m2 (M/F) 16-34 LVOT 1.94 cm (M/F) 1.5-2.5 M-Mode Dimensions RVDd 1.75 cm (0.9-2.6) LA Diam 4.05 cm (1.9-4.0) LVDd 5.22 cm (3.5-5.7) Ao Diam 2.82 cm (2.0-3.7) LVDs 3.47 cm (3.5-5.7) IVSd 1.07 cm (0.6-1.1) PWd 0.97 cm (0.6-1.1) EF (Teich) 61.90% EPSs 0.50 cm FS 33.50% EDV (Teich) 130.70 mL TAPSE 2.78 (<1.7) ESV (Teich) 49.80 mL LV Diastology E Decel Time 163.00 (160-240 msec) E/A Ratio 1.11 MED E' 9.00 (< 7 cm/sec) MED A' 11.60 cm/s E'/MED E' Ratio 12.32 (>14) LAT E' 10.90 (<10 cm/sec) LAT A' 12.20 cm/s E/LAT E' Ratio 10.17 (>14) Aortic Valve LVOT Max 111.00 (70-110 cm/s) LVOT VTI 24.06 cm AoV Peak German. 177.00 (50-130 cm/s) AO Peak GR. 12.50 mmHg AO Mean GR. 6.40 (<5 mmHg) AO VTI 35.61 (18-25 cm) JUDE (VTI) 2.00 (2.5-4.5 cm2) Mitral Valve MV A Velocity 100.00 (40-130 cm/s) E/A Ratio 1.11 MV Decel. Time 163.00 (160-240 ms) MV PHT 50.00 ms Pulmonary Valve PV Peak Velocity 92.00 (50-150 cm/s) NJ End VMAX 221.00 cm/s Tricuspid Valve TR P. Velocity 273.00 cm/s RAP Estimate 10.00 mmHg RVSP 39.80 mmHg Left Ventricle Left atrium is normal size left ventricle is normal size, estimated ejection fraction 55% with no regional wall motion abnormality, diastolic parameters are within normal range. Right Ventricle Right atrium and right ventricle are mildly enlarged with normal contractility. Aortic Valve Aortic valve is grossly normal there is no aortic stenosis or aortic insufficiency. Mitral Valve Mitral valve is grossly normal, there is trace mitral regurgitation. Tricuspid Valve Tricuspid valve grossly normal, there is mild tricuspid regurgitation, calculated right ventricular systolic pressure is 40 mmHg. Pulmonic Valve Pulmonic valve is poorly visualized. Great Vessels Aortic root is normal size. Inferior vena cava is poorly visualized. Pericardium No significant pericardial effusion noted. Conclusion 1. Normal left ventricular size, estimated ejection fraction of 55% with no regional wall motion abnormality, diastolic parameters are within normal range. 2. Trace mitral and mild tricuspid regurgitation, calculated right ventricular systolic pressure is 40 mmHg. 3. No significant pericardial effusion noted. 4. Inferior vena cava is poorly visualized. Electronically signed by : Alfred Raman MD 08/01/2022 05:55:43
== END ==
LOC: RT 10:03
PROVIDERS: PCP Emergency Medicine; Visit Provider Nurse Practitioner
DX: I35.0 Nonrheumatic aortic (valve) stenosis (principal)
CPT/HCPCS: 93306

== ENCOUNTER → 2022-08-15 08:14 | Outpatient (CLI) | payer MEDICARE, SELFPAY ==
--- NOTE | 2022-08-15 08:18 | CT_ITS ---
FINAL REPORT TECHNIQUE: Axial imaging of the chest is obtained after the administration of contrast. 3-D MIP reformatted images were also obtained and reviewed per PE protocol. CLINICAL HISTORY: Shortness of breath COMPARISON: 12/30/2020 FINDINGS: The pulmonary arteries are well filled. There is no evidence of pulmonary embolus. There is no aortic dissection or intimal flap. There is no mediastinal, hilar, or axillary lymphadenopathy. Stable bilateral areas of atelectasis or scar. The lungs are otherwise clear. There is no pleural or pericardial effusion. Limited evaluation of the upper abdomen is without acute abnormality. There is no acute osseous abnormality. There are old posterior left rib fractures. IMPRESSION: No evidence of pulmonary embolism or aortic dissection. Reviewed, Interpreted and Dictated by Sheree Ramirez MD Transcribed by Margoth Reyes Authenticated and [facility]
[2022-08-15 09:03] LABS: Anion Gap 12.3 mEq/L (5-15); Blood Urea Nitrogen 12 mg/dl (7-17); Calcium 8.5 mg/dl (8.4-10.2); Carbon Dioxide 33 mmol/L (22.0-30.0); Chloride 96 mmol/L (98-107); Estimated Glomerular Filt Rate 85 ml/min (>60); GFR (African American) 103 ML/MIN (>60); Glucose 145 mg/dl (74-100); Potassium 3.3 mmoL/L (3.5-5.1); Sodium 138 mmol/L (136-145)
[2022-08-15 10:23] LABS: Magnesium 1.4 mg/dl (1.6-2.3)
== END ==
LOC: RAD 08:15
PROVIDERS: PCP Emergency Medicine; Visit Provider Physician Assistant
DX: R06.00 Dyspnea, unspecified; I25.118 Atherosclerotic heart disease of native coronary artery with other forms of angina pectoris; E78.2 Mixed hyperlipidemia; I11.9 Hypertensive heart disease without heart failure; R60.0 Localized edema; E78.5 Hyperlipidemia, unspecified; I10 Essential (primary) hypertension; E87.6 Hypokalemia; E66.9 Obesity, unspecified; Z68.41 Body mass index [BMI] 40.0-44.9, adult; Z79.84 Long term (current) use of oral hypoglycemic drugs
CPT/HCPCS: 36415; 71275; 80048; 82565; 83735; Q9967

== ENCOUNTER → 2022-09-17 11:20 | Outpatient (CLI) | payer MEDICARE, SELFPAY ==
[2022-09-17 19:21] LABS: Amphetamine/Metha Screen,Urine Negative ng/ml (<1000)
[2022-09-17 19:23] LABS: Benzodiazepines Screen,Urine Negative ng/ml (<200); Cannabinoid Screen,Urine Negative ng/ml (<50)
[2022-09-17 19:24] LABS: Barbiturates Screen,Urine Negative ng/ml (<200); Cocaine Screen,Urine Negative ng/ml (<300)
[2022-09-17 19:25] LABS: Methadone Screen,Urine Negative ng/ml (<300)
[2022-09-17 19:26] LABS: Opiate Screen,Urine Positive ng/ml (<300); Phencyclidine Screen,Urine Negative ng/ml (<25)
== END ==
PROVIDERS: PCP Emergency Medicine; Visit Provider Emergency Medicine
DX: M51.36 Other intervertebral disc degeneration, lumbar region (principal)
CPT/HCPCS: 80305

== ENCOUNTER → 2022-10-29 11:29 | Outpatient (CLI) | payer MEDICARE, SELFPAY | PROVIDERS: PCP Emergency Medicine; Visit Provider Specialist | DX: R06.09 Other forms of dyspnea (principal) | CPT/HCPCS: 94762 ==

== ENCOUNTER → 2022-11-23 13:45 | Outpatient (CLI) | payer MEDICARE, SELFPAY ==
[2022-11-23 13:51] LABS: Microalbumin < 6.000 mg/L (0-16.7)
[2022-11-23 13:54] LABS: Amphetamine/Metha Screen,Urine Negative ng/ml (<1000)
[2022-11-23 13:55] LABS: Barbiturates Screen,Urine Negative ng/ml (<200)
[2022-11-23 13:56] LABS: Benzodiazepines Screen,Urine Negative ng/ml (<200)
[2022-11-23 13:57] LABS: Cocaine Screen,Urine Negative ng/ml (<300)
[2022-11-23 13:58] LABS: Methadone Screen,Urine Negative ng/ml (<300); Opiate Screen,Urine Negative ng/ml (<300)
[2022-11-23 14:01] LABS: Phencyclidine Screen,Urine Negative ng/ml (<25)
[2022-11-23 14:22] LABS: Cannabinoid Screen,Urine Negative ng/ml (<50)
[2022-11-23 14:44] LABS: Creatinine,Urine Random 19 mg/dL (Not Estab.)
== END ==
PROVIDERS: PCP Emergency Medicine; Visit Provider Emergency Medicine
DX: M51.36 Other intervertebral disc degeneration, lumbar region (principal)
CPT/HCPCS: 80305; 82043; 82570

== ENCOUNTER → 2022-12-04 14:41 | Outpatient (CLI) | payer MEDICARE, SELFPAY | PROVIDERS: PCP Emergency Medicine; Visit Provider Specialist | DX: R06.09 Other forms of dyspnea (principal) | CPT/HCPCS: 94762 ==

== ENCOUNTER → 2022-12-07 13:44 | Outpatient (CLI) | payer MEDICARE, SELFPAY ==
--- NOTE | 2022-12-07 13:44 | MM_ITS ---
PROCEDURE INFORMATION: Exam: MG Bilateral Screening 3D Mammography Exam date and time: 12/07/2022 1:33 PM Age: 62 years old Clinical indication: Screening. Her maternal grandmother, maternal aunt, and paternal cousin had breast cancer. TECHNIQUE: Imaging protocol: Bilateral Screening tomosynthesis and 2D mammography including computer-aided detection (CAD) when performed. COMPARISON: 1. MG MM DIG MAMM DX UNILAT LT CAD 06/04/2022 2:03 PM 2. MG MM DIG MAMM BI DX W/CAD 12/01/2021 1:52 PM 3. MG MM DIG MAMM BI DX W/CAD 06/01/2021 1:01 PM 4. MG MM DIG SCREENING MAMM BI W/CAD 04/03/2021 1:26 PM FINDINGS: MAMMOGRAPHY: Breast composition: There are scattered areas of fibroglandular density. Mass: No suspicious mass. Architectural distortion: None. Calcifications: No suspicious calcifications. Asymmetric density: None. Skin thickening: None. Axillary adenopathy: None. IMPRESSION: No mammographic evidence of malignancy. Annual screening is recommended unless otherwise clinically indicated. ASSESSMENT: BI-RADS Category 1: Negative
== END ==
PROVIDERS: PCP Emergency Medicine; Visit Provider Emergency Medicine
DX: Z12.31 Encounter for screening mammogram for malignant neoplasm of breast (principal)
CPT/HCPCS: 77063; 77067

== ENCOUNTER → 2023-01-02 16:39 | Outpatient (CLI) | payer MEDICARE, SELFPAY ==
[2023-01-02 13:51] LABS: Amphetamine/Metha Screen,Urine Negative ng/ml (<1000)
[2023-01-02 13:52] LABS: Barbiturates Screen,Urine Negative ng/ml (<200); Benzodiazepines Screen,Urine Negative ng/ml (<200)
[2023-01-02 13:53] LABS: Cannabinoid Screen,Urine Negative ng/ml (<50)
[2023-01-02 13:54] LABS: Cocaine Screen,Urine Negative ng/ml (<300); Methadone Screen,Urine Negative ng/ml (<300)
[2023-01-02 13:55] LABS: Opiate Screen,Urine Positive ng/ml (<300)
[2023-01-02 13:56] LABS: Phencyclidine Screen,Urine Negative ng/ml (<25)
== END ==
PROVIDERS: PCP Emergency Medicine; Visit Provider Emergency Medicine
DX: M51.36 Other intervertebral disc degeneration, lumbar region (principal)
CPT/HCPCS: 80305

== ENCOUNTER → 2023-01-16 09:11 | Outpatient (CLI) | payer MEDICARE, SELFPAY ==
--- NOTE | 2023-01-16 09:17 | XR_ITS ---
FINAL REPORT TECHNIQUE: Bone mineral density was calculated of the lumbar spine and hip. CLINICAL HISTORY: post menopausal FINDINGS: Using L1-4, the bone mineral density of the spine is 0.986 g/cm2, corresponding to T-score of -0.6 this is likely falsely elevated secondary to hypertrophic changes. Using the left hip, the bone mineral density of the femoral neck is 0.654 g/cm2, corresponding to a T-score of -1.8. Using the right hip, the bone mineral density of the femoral neck is 0.733 g/cm2, corresponding to a T-score of -1.0. NOTE: T-score: Standard deviation compared with peak bone mass of young adult mean. *Following the recommendations of the International Society of Bone densitometry, classification of hip BMD is based on the lower of two T-scores; total hip or femoral neck. IMPRESSION: Diminished bone mineral density consistent with low bone density. Reviewed, Interpreted and Dictated by Randy Leach III, MD Transcribed by Addie Jules Authenticated and [facility]
== END ==
PROVIDERS: PCP Emergency Medicine; Visit Provider Emergency Medicine
DX: Z78.0 Asymptomatic menopausal state (principal)
CPT/HCPCS: 77080

== ENCOUNTER → 2023-02-07 15:47 | Outpatient (CLI) | payer MEDICARE, SELFPAY ==
[2023-02-07 14:27] LABS: Barbiturates Screen,Urine Negative ng/ml (<200)
[2023-02-07 14:28] LABS: Amphetamine/Metha Screen,Urine Negative ng/ml (<1000); Cannabinoid Screen,Urine Negative ng/ml (<50)
[2023-02-07 14:29] LABS: Benzodiazepines Screen,Urine Negative ng/ml (<200)
[2023-02-07 14:30] LABS: Cocaine Screen,Urine Negative ng/ml (<300); Methadone Screen,Urine Negative ng/ml (<300)
[2023-02-07 14:31] LABS: Opiate Screen,Urine Positive ng/ml (<300); Phencyclidine Screen,Urine Negative ng/ml (<25)
== END ==
PROVIDERS: PCP Emergency Medicine; Visit Provider Emergency Medicine
DX: M51.36 Other intervertebral disc degeneration, lumbar region (principal); Z79.899 Other long term (current) drug therapy
CPT/HCPCS: 80305

== ENCOUNTER 2023-03-16 13:10 | Emergency (ER) | payer MEDICARE, SELFPAY ==
[2023-03-16 13:20] VITALS: BP 97/52; PULSE 87; RESP 20; TEMP 36.4; O2SAT 93; BMI 31.5
[2023-03-16 13:27] VITALS: BP 97/52; PULSE 87; RESP 20; TEMP 36.4; O2SAT 93
--- NOTE | 2023-03-16 13:29 | EXP.UTC ---
Discharge Plan Disposition Patient Disposition: Home, Self-Care Condition: Good Prescriptions Prescriptions: New cephalexin [cephalexin] 500 mg tablet 500 mg PO BID 7 Days Qty: 14 0RF cephalexin [cephalexin] 500 mg tablet 500 mg PO BID 10 Days Qty: 20 0RF No Action ipratropium-albuterol 0.5 mg-3 mg(2.5 mg base)/3 mL solution for nebulization 3 ml IH QID PRN (Reason: shortness of breath or wheezing) Qty: 90 6RF gabapentin 600 mg tablet 1,200 mg PO TID 30 Days Qty: 180 1RF tramadol 50 mg tablet 50 mg PO Q8H PRN (Reason: MILD TO MODERATE PAIN) Qty: 90 1RF hydrocodone-acetaminophen 5-325 mg tablet 1 tab PO TID PRN (Reason: pain) Qty: 90 0RF hydroxyzine pamoate 25 mg capsule 25 mg PO HS rimegepant 75 mg tablet,disintegrating 75 mg PO DAILYP MDD 75 mg PRN (Reason: Migraine Headache) Qty: 10 5RF Rx Instructions: TAKE ONE TABLET BY MOUTH NEEDED FOR MIGRAINE cetirizine 10 mg tablet 10 mg PO DAILY Qty: 60 0RF ferrous sulfate 142 mg (45 mg iron) tablet extended release 142 mg PO DAILY Qty: 90 0RF ranolazine [Ranexa] 500 mg tablet extended release 12 hr 500 mg PO BID Qty: 180 3RF potassium chloride 20 mEq tablet,ER particles/crystals See Rx Instructions .ROUTE .COMPLEX Qty: 90 0RF Dose Instruction: TAKE 1 TABLET BY MOUTH ONCE DAILY Rx Instructions: TAKE 1 TABLET BY MOUTH ONCE DAILY magnesium oxide 400 mg magnesium tablet 400 mg PO BID Qty: 60 3RF (DME) True Metrix Glucose Test Strip Strip See Rx Instructions .ROUTE .COMPLEX Qty: 200 0RF Dose Instruction: TEST BLOOD SUGAR TWO TIMES DAILY Rx Instructions: TEST BLOOD SUGAR TWO TIMES DAILY nystatin [Nyamyc] 100,000 unit/gram powder See Rx Instructions .ROUTE .COMPLEX Qty: 60 0RF Dose Instruction: APPLY TO AFFECTED AREA TWICE A DAY NEEDED FOR YEAST Rx Instructions: APPLY TO AFFECTED AREA TWICE A DAY NEEDED FOR YEAST albuterol sulfate 90 mcg/actuation HFA aerosol inhaler 2 inh IH Q6HP PRN (Reason: Shortness Of Breath) Qty: 8.5 6RF Rx Instructions: --SHAKE WELL-- AND INHALE 2 PUFFS EVERY 6 HOURS WITH SPACER cholecalciferol (vitamin D3) 25 mcg (1,000 unit) tablet See Rx Instructions .ROUTE .COMPLEX Qty: 90 2RF Dose Instruction: TAKE 1 TABLET BY MOUTH ONCE DAILY Rx Instructions: TAKE 1 TABLET BY MOUTH ONCE DAILY alcohol swabs [DropSafe Alcohol Prep Pads] Pads, Medicated See Rx Instructions .ROUTE .COMPLEX Qty: 200 0RF Dose Instruction: USE DIRECTED Rx Instructions: USE DIRECTED fluticasone propion-salmeterol [Wixela Inhub] 250-50 mcg/dose blister with device 1 inh inhalation BID Qty: 60 3RF ketotifen fumarate 0.025 % (0.035 %) drops See Rx Instructions .ROUTE .COMPLEX Qty: 5 2RF Dose Instruction: USE 1 DROP IN EACH EYE TWICE A DAY NEEDED FOR ALLERGY SYMPTOMS Rx Instructions: USE 1 DROP IN EACH EYE TWICE A DAY NEEDED FOR ALLERGY SYMPTOMS fluticasone propionate 50 mcg/actuation spray,suspension See Rx Instructions .ROUTE .COMPLEX Qty: 16 4RF Dose Instruction: USE 1 SPRAY IN EACH NOSTRIL ONCE A DAY Rx Instructions: USE 1 SPRAY IN EACH NOSTRIL ONCE A DAY colestipol 1 gram tablet 1 g PO DAILY Qty: 90 3RF metoprolol succinate 50 mg tablet extended release 24 hr See Rx Instructions .ROUTE .COMPLEX Qty: 45 1RF Dose Instruction: TAKE 1/2 TABLET EVERY DAY FOR BLOOD PRESSURE Rx Instructions: TAKE 1/2 TABLET EVERY DAY FOR BLOOD PRESSURE metformin 1,000 mg tablet See Rx Instructions .ROUTE .COMPLEX Qty: 180 0RF Dose Instruction: TAKE 1 TABLET TWICE DAILY FOR DIABETES Rx Instructions: TAKE 1 TABLET TWICE DAILY FOR DIABETES ergocalciferol (vitamin D2) 1,250 mcg (50,000 unit) capsule 1,250 mcg PO WEEKLY Qty: 14 0RF cyclobenzaprine 5 mg tablet See Rx Instructions .ROUTE .COMPLEX Qty: 90 0RF Dose Instru
== END 2023-03-16 13:42 | disposition home or self-care (01) ==
PROVIDERS: Emergency Provider Nurse Practitioner Family; PCP Emergency Medicine
DX: L03.113 Cellulitis of right upper limb (principal); I11.9 Hypertensive heart disease without heart failure; J45.909 Unspecified asthma, uncomplicated; Z87.891 Personal history of nicotine dependence
CPT/HCPCS: 99212; 99214; G0463

== ENCOUNTER → 2023-03-22 21:23 | Outpatient (CLI) | payer MEDICARE, SELFPAY ==
[2023-03-22 16:36] LABS: Amphetamine/Metha Screen,Urine Negative ng/ml (<1000)
[2023-03-22 16:37] LABS: Barbiturates Screen,Urine Negative ng/ml (<200)
[2023-03-22 16:38] LABS: Benzodiazepines Screen,Urine Negative ng/ml (<200)
[2023-03-22 16:39] LABS: Cannabinoid Screen,Urine Negative ng/ml (<50); Cocaine Screen,Urine Negative ng/ml (<300)
[2023-03-22 16:40] LABS: Methadone Screen,Urine Negative ng/ml (<300)
[2023-03-22 16:41] LABS: Opiate Screen,Urine Positive ng/ml (<300); Phencyclidine Screen,Urine Negative ng/ml (<25)
== END ==
PROVIDERS: PCP Emergency Medicine; Visit Provider Emergency Medicine
DX: M51.36 Other intervertebral disc degeneration, lumbar region (principal)
CPT/HCPCS: 80305

== ENCOUNTER → 2023-03-26 10:58 | Outpatient (CLI) | payer MEDICARE, SELFPAY ==
--- NOTE | 2023-03-26 11:05 | MM_ITS ---
PROCEDURE INFORMATION: Exam: MG Bilateral Screening 3D Mammography Exam date and time: 03/26/2023 11:00 AM Age: 62 years old Clinical indication: Screening examination; Family history of breast cancer in grandmother and in aunt and other: Cousin TECHNIQUE: Imaging protocol: Bilateral Screening tomosynthesis and 2D mammography including computer-aided detection (CAD) when performed. COMPARISON: 1. MG MM DIG SCREENING MAMM BI W/CAD 12/07/2022 1:33 PM 2. MG MM DIG MAMM DX UNILAT LT CAD 06/04/2022 2:03 PM FINDINGS: MAMMOGRAPHY: Breast composition: The breasts are almost entirely fatty. Mass: None. Architectural distortion: None. Calcifications: No suspicious calcifications. Asymmetric density: None. Skin thickening: None. Axillary adenopathy: None. IMPRESSION: No mammographic evidence of malignancy. Annual screening is recommended unless otherwise clinically indicated. ASSESSMENT: BI-RADS Category 1: Negative
== END ==
PROVIDERS: PCP Emergency Medicine; Visit Provider Emergency Medicine
DX: Z12.31 Encounter for screening mammogram for malignant neoplasm of breast (principal)
CPT/HCPCS: 77063; 77067

== ENCOUNTER → 2023-04-05 10:00 | Outpatient (CLI) | payer MEDICARE, SELFPAY ==
[2023-04-05 13:30] LABS: Barbiturates Screen,Urine Negative ng/ml (<200)
[2023-04-05 13:32] LABS: Amphetamine/Metha Screen,Urine Negative ng/ml (<1000); Benzodiazepines Screen,Urine Negative ng/ml (<200)
[2023-04-05 13:33] LABS: Cocaine Screen,Urine Negative ng/ml (<300)
[2023-04-05 13:34] LABS: Cannabinoid Screen,Urine Negative ng/ml (<50); Opiate Screen,Urine Negative ng/ml (<300)
[2023-04-05 13:35] LABS: Methadone Screen,Urine Negative ng/ml (<300)
[2023-04-05 13:36] LABS: Phencyclidine Screen,Urine Negative ng/ml (<25)
== END ==
PROVIDERS: PCP Emergency Medicine; Visit Provider Emergency Medicine
DX: Z79.899 Other long term (current) drug therapy (principal)
CPT/HCPCS: 80305

== ENCOUNTER → 2023-04-10 12:21 | Outpatient (CLI) | payer MEDICARE, SELFPAY ==
[2023-04-10 13:11] LABS: Blood Urea Nitrogen 16 mg/dl (7-17); Estimated Glomerular Filt Rate 85 ml/min (>60); GFR (African American) 103 ML/MIN (>60)
== END ==
PROVIDERS: PCP Emergency Medicine; Visit Provider Emergency Medicine
DX: I10 Essential (primary) hypertension (principal); Z87.891 Personal history of nicotine dependence
CPT/HCPCS: 36415; 82565; 84520

== ENCOUNTER → 2023-04-18 14:57 | Outpatient (CLI) | payer MEDICARE, SELFPAY ==
--- NOTE | 2023-04-18 14:58 | CT_ITS ---
PROCEDURE INFORMATION: Exam: CT Right Upper Extremity With Contrast, Forearm Exam date and time: 04/18/2023 3:40 PM Age: 62 years old Clinical indication: Mass or lump; Arm, lower; Patient HX: Area of swelling over proximal posterior right forearm after having cellulitis per patient. ; Additional info: Abcess TECHNIQUE: Imaging protocol: Computed tomography of the right upper extremity with contrast. Exam focused on the forearm. 3D rendering (Not supervised by radiologist): MIP and/or 3D reconstructed images were created by the technologist. Radiation optimization: All CT scans at this facility use at least one of these dose optimization techniques: automated exposure control; mA and/or kV adjustment per patient size (includes targeted exams where dose is matched to clinical indication); or iterative reconstruction. Contrast material: ISOVUE; Contrast volume: 75 ml; Contrast route: IV; REPORTING DATA: Count of CT and Cardiac NM exams in prior 12 months: This patient has received [address] and 0 known cardiac nuclear medicine studies in the 12 months prior to the current study. COMPARISON: No relevant prior studies available. FINDINGS: Bones/joints: Normal. No acute fracture or dislocation. Soft tissues: Mild regions of subcutaneous edema superficial to the ulna. Other findings: Subtle approximate 6 mm hypodense region with peripheral enhancement. Findings suspicious for small abscess. This is demonstrated on series 2, image number 87, series 602, image number 7. IMPRESSION: 1. Subtle approximate 6 mm hypodense region with peripheral enhancement superficial to the ulna. Findings suspicious for small abscess. 2. Consider follow-up if appropriate with magnetic resonance imaging for further evaluation.
== END ==
LOC: RAD 14:58
PROVIDERS: PCP Emergency Medicine; Visit Provider Emergency Medicine
DX: L02.91 Cutaneous abscess, unspecified (principal)
CPT/HCPCS: 73201; Q9967

== ENCOUNTER → 2023-06-05 12:34 | Outpatient (CLI) | payer MEDICARE, SELFPAY ==
[2023-06-05 13:27] LABS: Chloride 98 mmol/L (98-107)
[2023-06-05 13:28] LABS: Potassium 3.5 mmoL/L (3.5-5.1); Sodium 139 mmol/L (136-145)
[2023-06-05 13:31] LABS: Anion Gap 14.5 mEq/L (5-15); Blood Urea Nitrogen 13 mg/dl (7-17); Calcium 9.1 mg/dl (8.4-10.2); Carbon Dioxide 30 mmol/L (22.0-30.0); Estimated Glomerular Filt Rate 85 ml/min (>60); GFR (African American) 103 ML/MIN (>60); Glucose 88 mg/dl (74-100); Magnesium 1.1 mg/dl (1.6-2.3)
== END ==
PROVIDERS: PCP Nurse Practitioner Family; Visit Provider Physician Assistant
DX: E83.42 Hypomagnesemia (principal); E11.9 Type 2 diabetes mellitus without complications; E78.2 Mixed hyperlipidemia; I25.118 Atherosclerotic heart disease of native coronary artery with other forms of angina pectoris; E66.9 Obesity, unspecified; Z68.27 Body mass index [BMI] 27.0-27.9, adult; Z79.84 Long term (current) use of oral hypoglycemic drugs; Z79.85 Long-term (current) use of injectable non-insulin antidiabetic drugs; Z87.891 Personal history of nicotine dependence
CPT/HCPCS: 36415; 80048; 83735

== ENCOUNTER → 2023-06-06 07:39 | Outpatient (CLI) | payer MEDICARE, SELFPAY ==
[2023-06-06 18:44] LABS: Basophils % 0.4 % (0.1-2.0); Eosinophils # 0.1 K/mm3 (0.0-0.4); Eosinophils % 0.9 % (0.1-12.0); Hematocrit 38.7 % (37.0-47.0); Hemoglobin 12.7 g/dL (12.2-16.2); Lymphocytes # 1.4 K/mm3 (0.7-4.5); Mean Corpuscular HGB Conc 32.7 g/dL (31.8-35.4); Mean Corpuscular Hemoglobin 29.4 pg (27.0-31.2); Mean Corpuscular Volume 89.9 fl (81-99); Mean Platelet Volume 9.5 fl (7.4-10.4); Monocytes # 0.4 K/mm3 (0.1-1.0); Monocytes % 4.8 % (1.7-9.3); Neutrophils # 5.7 K/mm3 (1.8-7.8); Platelet Count 252 K/mm3 (142-424); Red Blood Count 4.31 M/mm3 (4.20-5.40); Red Cell Distribution Width 14.7 % (11.5-17.5); White Blood Count 7.6 K/mm3 (4.8-10.8)
[2023-06-06 19:43] LABS: Hemoglobin A1C 4.9 % (4.0-6.0)
[2023-06-06 20:20] LABS: Alanine Aminotransferase 23 U/L (12-78); Alkaline Phosphatase 78 U/L (38-126); Aspartate Amino Transferase 24 U/L (14-36); Bilirubin,Total 0.3 mg/dl (0.2-1.3); Blood Urea Nitrogen 11 mg/dl (7-17); Calcium 8.9 mg/dl (8.4-10.2); Carbon Dioxide 29 mmol/L (22.0-30.0); Chloride 101 mmol/L (98-107); Cholesterol 102 mg/dl (140-200); Estimated Glomerular Filt Rate 102 ml/min (>60); GFR (African American) 123 ML/MIN (>60); Glucose 99 mg/dl (74-100); Magnesium 1.1 mg/dl (1.6-2.3); Triglycerides 67 mg/dl (30-150); VLDL Cholesterol 13 mg/dL (0-40)
[2023-06-06 20:31] LABS: Direct LDL Cholesterol 41.02 mg/dL (100-129)
[2023-06-06 20:36] LABS: 25-OH Vitamin D, Total 45.9 ng/mL (30-100); Amphetamine/Metha Screen,Urine Negative ng/ml (<1000)
[2023-06-06 20:37] LABS: Barbiturates Screen,Urine Negative ng/ml (<200)
[2023-06-06 20:38] LABS: Benzodiazepines Screen,Urine Negative ng/ml (<200); Cannabinoid Screen,Urine Negative ng/ml (<50)
[2023-06-06 20:39] LABS: Cocaine Screen,Urine Negative ng/ml (<300)
[2023-06-06 20:40] LABS: Methadone Screen,Urine Negative ng/ml (<300); Opiate Screen,Urine Negative ng/ml (<300)
[2023-06-06 20:43] LABS: Phencyclidine Screen,Urine Negative ng/ml (<25)
[2023-06-06 20:52] LABS: Thyroid Stimulating Hormone 1.52 uIU/mL (0.465-4.68)
[2023-06-06 21:13] LABS: Albumin Level 4.1 g/dl (3.5-5.0); Albumin/Globulin Ratio 1.9 (1.1-1.8); Anion Gap 8.7 mEq/L (5-15); Chol/HDL Ratio 1.8 (1-3.5); Globulin 2.2 g/dL (1.3-3.2); HDL Cholesterol 56 mg/dl (40-60); Potassium 3.7 mmoL/L (3.5-5.1); Sodium 135 mmol/L (136-145); Total Protein,Serum 6.3 g/dl (6.3-8.2)
[2023-06-16 16:14] LABS: Opiates Negative ng/mL (Cutoff=100)
== END ==
LOC: LAB.DROPOF 06-07 07:40
PROVIDERS: Nurse Practitioner Family; PCP Nurse Practitioner Family; Visit Provider Nurse Practitioner Family
DX: Z79.899 Other long term (current) drug therapy; E55.9 Vitamin D deficiency, unspecified; E87.5 Hyperkalemia; M51.36 Other intervertebral disc degeneration, lumbar region; Z68.27 Body mass index [BMI] 27.0-27.9, adult; E66.3 Overweight
CPT/HCPCS: 80053; 80061; 80307; 80361; 82306; 83036; 83735; 84443; 85025; G0480

== ENCOUNTER → 2023-06-11 13:13 | Outpatient (CLI) | payer MEDICARE, SELFPAY | LOC: RT 13:13 | PROVIDERS: PCP Nurse Practitioner Family; Visit Provider Internal Medicine Pulmonary Disease | DX: R06.09 Other forms of dyspnea | CPT/HCPCS: 94060; 94618 ==

== ENCOUNTER 2023-07-01 13:34 | Outpatient (POV) | payer MEDICARE, SELFPAY | END 2023-07-01 23:59 | disposition home or self-care (01) | LOC: SC 13:34 | PROVIDERS: Visit Provider Specialist/Technologist | DX: Z00.00 Encounter for general adult medical examination without abnormal findings (principal) ==

== ENCOUNTER 2023-07-09 09:15 | Outpatient (CLI) | payer MEDICARE, SELFPAY ==
--- NOTE | 2023-07-09 09:16 | MR_ITS ---
FINAL REPORT CLINICAL HISTORY: DDD. low back pain. left leg pain, numbness and tingling FINDINGS: Multiplanar MR imaging of the lumbar spine was performed without contrast. On the sagittal T2-weighted images, there is abnormal decreased signal throughout the lumbar discs. The vertebrae are of normal height. The vertebral alignment is normal. L1-2: There is no significant canal stenosis or neural foraminal narrowing. L2-3: There is a mild diffuse disc bulge with mild bilateral neural foraminal narrowing. L3-4: There is a mild diffuse disc bulge with mild bilateral neural foraminal narrowing. L4-5: There is a mild diffuse disc bulge with mild bilateral neural foraminal narrowing. L5-S1: There is no significant canal stenosis or neural foraminal narrowing. IMPRESSION: Mild diffuse disc bulges at L2-L3, L3-L4 and L4-L5 with associated mild neuroforaminal narrowing Reviewed, Interpreted and Dictated by Tyrone Russell MD Transcribed by Ezequiel Friedman Authenticated and [facility]
== END 2023-07-09 23:59 ==
LOC: RAD 09:16
PROVIDERS: PCP Nurse Practitioner Family; Visit Provider Nurse Practitioner Family
DX: M19.90 Unspecified osteoarthritis, unspecified site (principal); M54.50 Low back pain, unspecified; M46.96 Unspecified inflammatory spondylopathy, lumbar region; M99.83 Other biomechanical lesions of lumbar region
CPT/HCPCS: 72148; 76376

== ENCOUNTER 2023-07-23 09:00 | Outpatient (RCR) | payer MEDICARE, SELFPAY ==
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
== END 2023-07-23 10:00 | disposition home or self-care (01) ==
LOC: PT 09:00
PROVIDERS: PCP Nurse Practitioner Family; Visit Provider Nurse Practitioner Family
DX: M54.50 Low back pain, unspecified (principal); M19.90 Unspecified osteoarthritis, unspecified site; M46.96 Unspecified inflammatory spondylopathy, lumbar region
CPT/HCPCS: 97163

== ENCOUNTER → 2023-08-02 08:58 | Outpatient (POV) | payer MEDICARE, SELFPAY ==
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
[2023-08-02 10:33] VITALS: BP 109/56; PULSE 82; RESP 18; O2SAT 97; BMI 27.1
== END ==
LOC: SC.PAIN 08:59
PROVIDERS: PCP Nurse Practitioner Family; Visit Provider Nurse Practitioner Family
DX: M51.36 Other intervertebral disc degeneration, lumbar region (principal); M54.2 Cervicalgia; M47.816 Spondylosis without myelopathy or radiculopathy, lumbar region
CPT/HCPCS: 99202; G0463

== ENCOUNTER 2023-08-28 09:23 | Outpatient (POV) | payer MEDICARE, SELFPAY ==
--- NOTE | 2023-08-28 10:17 | A.OFFVIS_ITS ---
[facility] Pain Management SOAP Note Subjective:: Patient is a pleasant 62-year-old female who presents today for insurance denial. Today she rates her pain an 8 out of 10. Patient denies any new trauma injury. She states she continues to have chronic pain in her low back that does not radiate to her legs. Patient had said at our last visit that she would have a random left leg pain from time to time however she states this is very random and is not an issue currently. Patient was just merely going through her overall health history. She states the pain does start in the right thyroid her back and is a chronic aching, throbbing sensation with some numbness and tingling. She states that the pain is worse with certain movements such as bending or twisting. Patient states when she does do these motions she feels it all at her low back and does interfere with her ability perform activities of daily living such as cooking and cleaning. Patient is still interested in scheduling for the lumbar medial branch block. Patient is on Plavix. Her Amador has been reviewed and is appropriate. Review of Systems: General: No recent weight changes, no fever, no sleep disturbances Respiratory: No cough, no shortness of air, no recurring pulmonary infections Cardiovascular/peripheral vascular: No chest pain, no palpitations, no edema, no shortness of breath Gastrointestinal: No new onset incontinence, normal bowel movements reported Genitourinary: No new onset incontinence Musculoskeletal: Low back pain Psychiatric: [Normal mood/affect] Neurological: [Denies weakness in extremities], [denies balance issues] Objective:: Physical Exam: General: Alert and oriented x3, no acute distress, pleasant and cooperative Lungs: Respirations even and unlabored, symmetrical chest expansion Eyes: PERRL Musculoskeletal: Flexion and extension of lumbar [spine] somewhat guarded secondary to pain, [antalgic gait noted] positive Kemps test Neurological: Speech clear, no gross sensory deficit Assessment:: Degenerative disc disease of lumbar spine with lumbar facet arthropathy, neck pain Plan:: Patient continues to have chronic pain in her low back with a positive Kemps test and limited range of motion of her lumbar spine. I have discussed again the risk and benefits of the lumbar medial branch block and that she may be a beneficial candidate. Patient would like to proceed forward with this plan of care. Patient has tried and failed conservative therapy such as oral medication, heat and ice, topicals, physical therapy and chiropractor therapy with minimal improvement and continued at home stretching exercise program within 6 weeks. We will resubmit for the lumbar medial branch block L3-L4 and L4-L5 under fluoroscopy. We will reach out to Dr. Gonzales's office regarding stopping her blood thinner prior to her injection. Patient has been instructed to contact the clinic with any concerns before the next appointment. Dr. Schmitt has reviewed this note and agrees with this plan of care. This note was dictated using voice recognition software and make contain errors or omissions. [facility] Disclaimer: The information contained in this section may have been updated after the patient was seen, as this information can be updated by other users. Medical History Abnormal electrocardiography Abnormal stress test Allergic rhinitis Asthma Asthma exacerbation Bilateral hearing loss Bilateral tinnitus Chest pain Chest pain Chronic cough Chronic pain Dyspnea Dyspnea Dyspnea Encounter for pre-operative cardiovascular clearance Hearing loss HHD (hypertensive heart disease) Migraine headache Mild persistent asthma Noise-induced hearing loss of both ears Obesity 29 pound weight loss since October, taking Ozempic Preoperative clearance Seasonal allergies Sinus tachycardia Sleep disorder breathing Swelling of left lower extremity Tinnitus of left ear Tinnitus of right ear Surgical History History of arthroscopic knee surgery History of cardiac cath History of heart artery stent Family History Other Coronary artery disease Diabetes Hyperlipidemia Hypertension No significant family history Thyroid disorder Social History (Updated 08/02/23 @ 10:35 by Alyssa Murrell RN) Smoking Status: Former smoker second hand exposure: No alcohol intake: never substance use type: denies use current occupational status: unemployed Travel in the last 8 weeks: None household members: family housing: house current occupational exposures/hazards: No caffeine: Yes
[2023-08-28 12:30] VITALS: BP 113/79; PULSE 83; RESP 18; O2SAT 98; BMI 27.1
== END 2023-08-28 23:59 ==
LOC: SC.PAIN 09:23
PROVIDERS: PCP Nurse Practitioner Family; Visit Provider Nurse Practitioner Family
DX: M51.36 Other intervertebral disc degeneration, lumbar region (principal); M47.896 Other spondylosis, lumbar region; M54.2 Cervicalgia
CPT/HCPCS: 99212; G0463

== ENCOUNTER 2023-11-19 08:51 | Day surgery (SDC) | payer MEDICARE, SELFPAY ==
[2023-11-19 09:15] VITALS: BP 103/56; PULSE 85; RESP 18; O2SAT 96; BMI 26.5
[2023-11-19] MEDS: BUPIVACAINE 0.25% 10ML INJ 25 MG IJ (09:25)
[2023-11-19] MEDS: LIDOCAINE 1% 5ML PF VIAL 5 ML (09:26)
[2023-11-19] MEDS: methylPREDNISolone ACETATE 80MG/ML VIAL 80 MG (09:26)
[2023-11-19 09:27] VITALS: BP 95/53; PULSE 79; RESP 18; O2SAT 97
[2023-11-19 09:28] VITALS: BP 95/53; PULSE 78; RESP 18; O2SAT 97
--- NOTE | 2023-11-19 09:37 | P.PCN_ITS ---
Procedure Date: 11/19/23 Time: 09:35 Anesthesiologist:: Cecil Montemayor CRNA Complications:: None Pre-procedure Diagnosis:: Generative disc lumbar spine multilevels. Lumbar radiculopathy. Lumbar spondylosis. Multilevel lumbar facet arthropathy. Post-procedure Diagnosis:: Same. Indications for Procedure:: Patient is a very pleasant 62-year-old female comes to clinic today for her initial round of medial branch blocks/facet injections at the L3-4, L4-5 level bilaterally. Patient describes low back pain as constant, dull, aching. Patient reports having difficulty with flexion, extension, left and right rotation. Standing intensifies lumbar back pain significantly. She rates her pain today 7/10. Procedure Details:: Informed consent was obtained and the risk and benefits of the procedure was explained to the patient. Patient was taken to the procedure room where noninvasive monitors were placed, including noninvasive blood pressure cuff as well as pulse oximeter. The area over the lumbar spine was cleansed using chlorhexidine as a cleansing solution. I anesthetized the skin and subcutaneous tissues with 1% Lidocaine. I placed 22-gauge spinal needles into the facet joint/ medial branches of [L3-L4, L4-L5 bilaterally. Needle placement was confirmed with fluoroscopy. After confirmation of needle placement, each site was injected with 1 mL of 1% lidocaine and 0.25 % Marcaine and 10 mg of Depo- Medrol. A total of 80 mg of depo medrol was used for bilateral medial branch blocks of [L3-L4, L4-L5 bilaterally. Patient tolerated the procedure without difficulty. There were no complications. Plan and Disposition:: Patient was discharged without incident.
[2023-11-19 10:15] VITALS: BP 105/60; PULSE 76; RESP 18; O2SAT 96
== END 2023-11-19 09:28 | disposition home or self-care (01) ==
PROVIDERS: PCP Nurse Practitioner Family; Visit Provider Nurse Anesthetist, Certified Registered
DX: M47.896 Other spondylosis, lumbar region (principal); M51.16 Intervertebral disc disorders with radiculopathy, lumbar region
CPT/HCPCS: 64493; 64494; J1010

== ENCOUNTER 2023-12-04 10:34 | Outpatient (POV) | payer MEDICARE, SELFPAY ==
[2023-12-04 11:18] VITALS: BP 111/60; PULSE 72; RESP 18; O2SAT 98; BMI 26.2
--- NOTE | 2023-12-04 11:18 | EXP.PAIN.SOA ---
[facility] Pain Management SOAP Note Subjective:: Patient is a pleasant 63-year-old female who presents today for follow-up of her first lumbar medial branch block bilaterally L4-L5 and L5-S1 on 11/19/2023. Today she rates her pain a 7 out of 10. Patient states that she did have approximately 85% relief following this injection and feels like overall that it is still providing some improvement however she is going back towards her baseline. Patient states that while this injection was working the best she had improved function and was able to move around easier with overall decreased pain. Patient is starting to have more increased pain in her low back and still denies any radiating symptoms to her legs. Patient states the pain is worse with certain movements such as bending, twisting or lifting. She states the pain does interfere with her ability to perform activities of daily living such as cooking and cleaning. Patient has tried and failed conservative therapies including continued at home exercising and stretching between injections. Patient has also started water aerobics and feels like this is helping some however she does also states she also is experiencing more neck pain with limited range of motion. her Amador has been reviewed and is appropriate. Review of Systems: General: No recent weight changes, no fever, no sleep disturbances Respiratory: No cough, no shortness of air, no recurring pulmonary infections Cardiovascular/peripheral vascular: No chest pain, no palpitations, no edema, no shortness of breath Gastrointestinal: No new onset incontinence, normal bowel movements reported Genitourinary: No new onset incontinence Musculoskeletal: Low back pain Psychiatric: [Normal mood/affect] Neurological: [Denies weakness in extremities], [denies balance issues] Objective:: physical Exam: General: Alert and oriented x3, no acute distress, pleasant and cooperative Lungs: Respirations even and unlabored, symmetrical chest expansion Eyes: PERRL Musculoskeletal: Flexion and extension of lumbar [spine] somewhat guarded secondary to pain, [antalgic gait noted] positive Kemps test Neurological: Speech clear, no gross sensory deficit Assessment:: Degenerative disc disease of lumbar spine with lumbar radiculopathy symptoms, lumbar facet arthropathy, lumbar spondylosis Plan:: Patient did have denial approximately 85% relief with her last lumbar medial branch block. Patient is starting to experience worsening pain throughout her low back with a positive Kemps test. I did discuss that she may benefit from a repeat medial branch block. Patient had significant improved function with decreased pain with her last 1. Patient was reviewed with the risk and benefits and she would like to proceed forward with this plan of care. Patient has tried and failed conservative therapy including continued exercise and stretching at home between injections. We will schedule her for her second lumbar medial branch block bilaterally L4-L5 and L5-S1 under fluoroscopy. I did discuss with the patient if she gets significant relief with this block that we will plan on doing a lumbar RFA at a future date. Patient has been instructed to contact the clinic with any concerns before the next appointment. Dr. Schmitt has reviewed this note and agrees with this plan of care. This note was dictated using voice recognition software and make contain errors or omissions. [facility] Disclaimer: The information contained in this section may have been updated after the patient was seen, as this information can be updated by other users. Medical History Major depressive disorder Migraine headache Chronic pain Dyspnea Bilateral hearing loss Bilateral tinnitus Hearing loss Asthma Allergic rhinitis Sleep disorder breathing Seasonal allergies Chronic cough Asthma exacerbation Mild persistent asthma Noise-induced hearing loss of both ears Tinnitus of right ear Tinnitus of left ear Abnormal stress test Obesity 29 pound weight loss since October, taking Ozempic Encounter for pre-operative cardiovascular clearance Chest pain Dyspnea Sinus tachycardia Abnormal electrocardiography Swelling of left lower extremity Preoperative clearance Dyspnea Chest pain HHD (hypertensive heart disease) Surgical History History of tubal ligation X2 -had this done; and 3 years later got -and had this done again History of cholecystectomy History of hysterectomy History of heart artery stent History of cardiac cath History of arthroscopic knee surgery Family History Other Coronary artery disease Diabetes Hyperlipidemia Hypertension No significant family history Thyroid disorder Social History Smoking Status: Former smoker second hand exposure: No alcohol intake: current alcohol intake frequency: holidays/special occasions only counseling given: No substance use type: denies use counseling given: No current occupational status: disabled Travel in the last 8 weeks: None adopted: No caregiver/support person: No foster care: No household members: family housing: house lives independently: No marital status: number of children: 2 number of grandchildren: 4 education level: college current occupational exposures/hazards: No Hx Recent Travel: No sexually active: No caffeine: Yes physical activity: none abelardo/roman catholic: None special abelardo needs: No working smoke detector in home: Yes fire extinguisher in home: No carbon monox detector in home: No firearms in home: No do you feel safe at home: Yes victim of physical abuse: No victim of emotional abuse: No victim of sexual abuse: No would you like helpful sources: No
== END 2023-12-04 23:59 | disposition home or self-care (01) ==
LOC: SC.PAIN 10:36
PROVIDERS: PCP Nurse Practitioner Family; Visit Provider Nurse Practitioner Family
DX: M47.896 Other spondylosis, lumbar region (principal); M51.16 Intervertebral disc disorders with radiculopathy, lumbar region
CPT/HCPCS: 99212; G0463

== ENCOUNTER 2023-12-05 13:46 | Outpatient (CLI) | payer MEDICARE, SELFPAY ==
[2023-12-05 14:07] LABS: Basophils # 0.1 K/mm3 (0-0.2); Basophils % 0.7 % (0.1-2.0); Eosinophils # 0.1 K/mm3 (0.0-0.4); Eosinophils % 1.3 % (0.1-12.0); Hematocrit 37.4 % (37.0-47.0); Hemoglobin 12.2 g/dL (12.2-16.2); Lymphocytes # 2.1 K/mm3 (0.7-4.5); Lymphocytes % 21.9 % (10-50); Mean Corpuscular HGB Conc 32.6 g/dL (31.8-35.4); Mean Corpuscular Hemoglobin 29.7 pg (27.0-31.2); Mean Corpuscular Volume 91.1 fl (81-99); Mean Platelet Volume 8.6 fl (7.4-10.4); Monocytes # 0.4 K/mm3 (0.1-1.0); Monocytes % 4.2 % (1.7-9.3); Neutrophils # 6.8 K/mm3 (1.8-7.8); Neutrophils % 71.8 % (37.0-80.0); Platelet Count 264 K/mm3 (142-424); White Blood Count 9.5 K/mm3 (4.8-10.8)
[2023-12-05 14:43] LABS: Alanine Aminotransferase 38 U/L (12-78); Alkaline Phosphatase 108 U/L (38-126); Anion Gap 11.7 mEq/L (5-15); Aspartate Amino Transferase 33 U/L (14-36); Bilirubin,Indirect 0.2 mg/dL (0.0-0.9); Bilirubin,Total 0.2 mg/dl (0.2-1.3); Bilirubin,Unconjugated 0.4 mg/dL (0.0-1.1); Blood Urea Nitrogen 19 mg/dl (7-17); Calcium 8.7 mg/dl (8.4-10.2); Carbon Dioxide 32 mmol/L (22.0-30.0); Chloride 100 mmol/L (98-107); Chol/HDL Ratio 2.1 (1-3.5); Cholesterol 169 mg/dl (140-200); Estimated Glomerular Filt Rate 63 ml/min (>60); GFR (African American) 77 ML/MIN (>60); Glucose 115 mg/dl (74-100); HDL Cholesterol 80 mg/dl (40-60); Potassium 3.7 mmoL/L (3.5-5.1); Sodium 140 mmol/L (136-145); Total Protein,Serum 6.3 g/dl (6.3-8.2); Triglycerides 79 mg/dl (30-150); VLDL Cholesterol 16 mg/dL (0-40)
[2023-12-05 14:54] LABS: Direct LDL Cholesterol 59.03 mg/dL (100-129)
[2023-12-05 15:00] LABS: Free T4 (Free Thyroxine) 1.12 ng/dl (0.78-2.19)
[2023-12-05 15:14] LABS: Thyroid Stimulating Hormone 1.04 uIU/mL (0.465-4.68)
== END 2023-12-05 23:59 | disposition home or self-care (01) ==
LOC: LAB 13:47
PROVIDERS: PCP Nurse Practitioner Family; Visit Provider Internal Medicine
DX: E78.2 Mixed hyperlipidemia (principal); I11.9 Hypertensive heart disease without heart failure; E11.9 Type 2 diabetes mellitus without complications; Z79.84 Long term (current) use of oral hypoglycemic drugs; Z87.891 Personal history of nicotine dependence
CPT/HCPCS: 36415; 80048; 80061; 80076; 84439; 84443; 85025

== ENCOUNTER 2023-12-24 09:14 | Day surgery (SDC) | payer MEDICARE, SELFPAY ==
[2023-12-24 09:21] VITALS: BP 116/68; PULSE 89; RESP 18; TEMP 36.7; O2SAT 97; BMI 26.5
[2023-12-24] MEDS: LIDOCAINE 1% 5ML PF VIAL 5 ML (09:36)
[2023-12-24] MEDS: BUPIVACAINE 0.25% 10ML INJ 25 MG IJ (09:36)
[2023-12-24 09:37] VITALS: BP 102/63; PULSE 83; RESP 18; O2SAT 96
[2023-12-24] MEDS: methylPREDNISolone ACETATE 80MG/ML VIAL 80 MG (09:37)
[2023-12-24 09:38] VITALS: BP 102/63; PULSE 83; RESP 18; O2SAT 96
[2023-12-24 09:40] VITALS: BP 109/69; PULSE 87; RESP 18; O2SAT 95
--- NOTE | 2023-12-24 09:49 | P.PCN_ITS ---
Procedure Date: 12/24/23 Time: 09:40 Anesthesiologist:: Cecil Montemayor CRNA Complications:: None Pre-procedure Diagnosis:: Degenerative disc lumbar spine multilevels. Lumbar radiculopathy. Lumbar spondylosis. Multilevel lumbar facet arthropathy. Post-procedure Diagnosis:: Same. Indications for Procedure:: Patient is a pleasant 63-year-old female comes our clinic today for round 2 of lumbar medial branch block/facet injections at the L4-5 and L5-S1 level. Patient describes low lumbar back pain as constant, dull, aching. She reports pain intensifies with flexion, extension, left or right rotation of the lumbar spine. Patient reports having difficulty standing for any length of time. She sitting for any length of time. She rates her pain 7/10. She reports 85% improvement terms of her overall low back pain symptoms lasting 2 to 3 weeks with prior injections at the same level. Procedure Details:: Informed consent was obtained and the risk and benefits of the procedure was explained to the patient. Patient was taken to the procedure room where noninvasive monitors were placed, including noninvasive blood pressure cuff as well as pulse oximeter. The area over the lumbar spine was cleansed using chlorhexidine as a cleansing solution. I anesthetized the skin and subcutaneous tissues with 1% Lidocaine. I placed 22-gauge spinal needles into the facet joint/ medial branches of L4-L5, and L5-S1] bilaterally. Needle placement was confirmed with fluoroscopy. After confirmation of needle placement, each site was injected with 1 mL of 1% lidocaine and 0.25 % Marcaine and 10 mg of Depo- Medrol. A total of 80 mg of depo medrol was used for bilateral medial branch blocks of L4-L5, and L5-S1] bilaterally. Patient tolerated the procedure without difficulty. There were no complications. Plan and Disposition:: Patient was discharged without incident.
== END 2023-12-24 09:40 | disposition home or self-care (01) ==
LOC: SC.PAINP 09:16
PROVIDERS: PCP Nurse Practitioner Family; Visit Provider Nurse Anesthetist, Certified Registered
DX: M47.816 Spondylosis without myelopathy or radiculopathy, lumbar region (principal)
CPT/HCPCS: 64493; 64494; J1010

== ENCOUNTER 2024-01-08 18:55 | Outpatient (CLI) | payer MEDICARE, SELFPAY | END 2024-01-08 23:59 | disposition home or self-care (01) | LOC: LAB.DROPOF 18:56 | PROVIDERS: PCP Nurse Practitioner Family; Visit Provider Nurse Practitioner Family | DX: N39.0 Urinary tract infection, site not specified (principal) | CPT/HCPCS: 87086; 87088; 87186 ==

== ENCOUNTER 2024-01-13 11:17 | Outpatient (POV) | payer MEDICARE, SELFPAY ==
[2024-01-13 11:43] VITALS: BP 107/70; PULSE 87; RESP 18; O2SAT 96; BMI 26.5
--- NOTE | 2024-01-13 14:50 | EXP.PAIN.SOA ---
[facility] Disclaimer: The information contained in this section may have been updated after the patient was seen, as this information can be updated by other users. Medical History Major depressive disorder Migraine headache Chronic pain Dyspnea Bilateral hearing loss Bilateral tinnitus Hearing loss Asthma Allergic rhinitis Sleep disorder breathing Seasonal allergies Chronic cough Asthma exacerbation Mild persistent asthma Noise-induced hearing loss of both ears Tinnitus of right ear Tinnitus of left ear Abnormal stress test Obesity 29 pound weight loss since October, taking Ozempic Encounter for pre-operative cardiovascular clearance Chest pain Dyspnea Sinus tachycardia Abnormal electrocardiography Swelling of left lower extremity Preoperative clearance Dyspnea Chest pain HHD (hypertensive heart disease) Surgical History History of tubal ligation X2 -had this done; and 3 years later got -and had this done again History of cholecystectomy History of hysterectomy History of heart artery stent History of cardiac cath History of arthroscopic knee surgery Family History Other Coronary artery disease Diabetes Hyperlipidemia Hypertension No significant family history Thyroid disorder Social History Smoking Status: Former smoker second hand exposure: No alcohol intake: current alcohol intake frequency: holidays/special occasions only counseling given: No substance use type: denies use counseling given: No current occupational status: disabled Travel in the last 8 weeks: None adopted: No caregiver/support person: No foster care: No household members: family housing: house lives independently: No marital status: number of children: 2 number of grandchildren: 4 education level: college current occupational exposures/hazards: No Hx Recent Travel: No sexually active: No caffeine: Yes physical activity: none abelardo/scientologist: None special abelardo needs: No working smoke detector in home: Yes fire extinguisher in home: No carbon monox detector in home: No firearms in home: No do you feel safe at home: Yes victim of physical abuse: No victim of emotional abuse: No victim of sexual abuse: No would you like helpful sources: No PM Subjective & Objective Subjective Subjective:: Patient is a pleasant 63-year-old female who presents today for follow-up of her second lumbar medial branch block bilaterally L4-L5 and L5-S1 on 12/24/2023. Patient does rate her pain today a 5 out of 10. Patient states that she did have approximately 75 to 80% improvement over the last 2 weeks however the first week is when it worked really well. She does state that the pain is not as severe and that she is still doing water aerobics with some improvement. She does state however with activities of daily living such as cooking and cleaning the pain does jump back up in severity. She states it is a chronic aching, throbbing all across her low back and denies any radiating symptoms down. Patient did have approximately 85% relief with her first 1 and does state that she would like to proceed forward with a lumbar ablation. Patient has tried and failed conservative therapy including oral medications, heat and ice, topicals, continued at home stretching and exercise for longer than 12 weeks. She is prescribed compounded cream. Her Amador has been reviewed and is appropriate. Review of Systems: General: No recent weight changes, no fever, no sleep disturbances Respiratory: No cough, no shortness of air, no recurring pulmonary infections Cardiovascular/peripheral vascular: No chest pain, no palpitations, no edema, no shortness of breath Gastrointestinal: No new onset incontinence, normal bowel movements reported Genitourinary: No new onset incontinence Musculoskeletal: Low back pain Psychiatric: [Normal mood/affect] Neurological: [Denies weakness in extremities], [denies balance issues] Pain at rest (0-10 scale): 5 Objective Objective:: Physical Exam: General: Alert and oriented x3, no acute distress, pleasant and cooperative Lungs: Respirations even and unlabored, symmetrical chest expansion Eyes: PERRL Musculoskeletal: Flexion and extension of lumbar [spine] somewhat guarded secondary to pain, [antalgic gait noted] positive Kemps test Neurological: Speech clear, no gross sensory deficit Has patient had previous pain injection?: Yes Percent improvement in pain since last injection: 75 to 80% Conservative treatment options previously tried: Home exercise plan Length of treatment: Longer than 12 weeks Meds Home Medications and Allergies Home Medications ?Medication ?Instructions ?Recorded ?Confirmed ?Type cetirizine 10 mg tablet 10 mg PO DAILY Allergy symptoms 04/14/21 01/13/24 Rx #60 tabs blood sugar diagnostic (True #200 strips 10/03/22 01/13/24 Rx Metrix Glucose Test Strip) alcohol swabs (DropSafe Alcohol See Rx Instructions .Route 11/09/22 01/13/24 Rx Prep Pads) .COMPLEX #200 swabs ketotifen fumarate 0.025 % (0.035 See Rx Instructions .Route 01/14/23 01/13/24 Rx %) eye drops .COMPLEX #5 mL colestipol 1 gram tablet 1 g PO DAILY Cholesterol #90 tabs 02/11/23 01/13/24 Rx dicyclomine 10 mg capsule See Rx Instructions .Route 05/28/23 01/13/24 Rx .COMPLEX #720 caps ferrous sulfate 142 mg (45 mg 142 mg PO DAILY Supplement #90 tabs 05/28/23 01/13/24 Rx iron) tablet,extended release ipratropium 0.5 mg-albuterol 3 mg 3 ml inhalation QID PRN shortness 05/28/23 01/13/24 Rx (2.5 mg base)/3 mL nebulization of breath or wheezing #90 mL soln rimegepant 75 mg disintegrating 75 mg PO DAILYP PRN Migraine 05/28/23 01/13/24 Rx tablet Headache #10 tabs ranolazine 500 mg tablet,extended 500 mg PO BID #180 tabs 06/05/23 01/13/24 Rx release,12 hr (Ranexa) multivitamin (Daily Multi-Vitamin 1 tab PO DAILY #30 tabs 06/14/23 01/13/24 Rx tablet) atorvastatin 40 mg tablet See Rx Instructions .Route 09/16/23 01/13/24 Rx .COMPLEX #90 tabs blood sugar diagnostic (True #100 ea 09/19/23 01/13/24 Rx Metrix Glucose Test Strip) blood-glucose meter (True Metrix #1 ea 09/19/23 01/13/24 Rx Air Glucose Meter kit) lancets 33 gauge (TRUEplus Lancets) #100 ea 09/19/23 01/13/24 Rx albuterol sulfate 90 mcg/actuation 2 inh inhalation Q6HP PRN 10/01/23 01/13/24 Rx aerosol inhaler Shortness Of Breath #8.5 grams alendronate 70 mg tablet See Rx Instructions .Route 10/07/23 01/13/24 Rx .COMPLEX #14 tabs aripiprazole 5 mg tablet 5 mg PO DIRECTED MOOD 10/15/23 01/13/24 History metformin 1,000 mg tablet 1,000 mg PO DAILY 10/15/23 01/13/24 History furosemide 80 mg tablet See Rx Instructions .Route 10/20/23 01/13/24 Rx .COMPLEX #60 tabs ergocalciferol (vitamin D2) 1,250 See Rx Instructions .Route 10/25/23 01/13/24 Rx mcg (50,000 unit) capsule (Vitamin .COMPLEX #14 caps D2) fluoxetine 40 mg capsule See Rx Instructions .Route 10/30/23 01/13/24 Rx .COMPLEX #180 caps magnesium oxide 400 mg PO BID #60 tabs 11/01/23 01/13/24 Rx metoprolol succinate 50 mg See Rx Instructions .Route 11/18/23 01/13/24 Rx tablet,extended release 24 hr .COMPLEX #45 tabs trazodone 150 mg tablet 150 mg PO DAILY #90 tabs 11/18/23 01/13/24 Rx lisinopril 2.5 mg tablet See Rx Instructions .Route 11/26/23 01/13/24 Rx .COMPLEX #90 tabs cariprazine 1.5 mg capsule 1.5 mg PO DAILY #30 caps 12/02/23 01/13/24 Rx (Vraylar) hydroxyzine pamoate 25 mg capsule 25 mg PO HS SLEEP #90 caps 12/09/23 01/13/24 Rx montelukast 10 mg tablet See Rx Instructions .Route 12/09/23 01/13/24 Rx .COMPLEX #90 tabs clopidogrel 75 mg tablet 75 mg PO DAILY Blood thinner #90 12/12/23 01/13/24 Rx tabs cholecalciferol (vitamin D3) 25 See Rx Instructions .Route 12/16/23 01/13/24 Rx mcg (1,000 unit) tablet (Vitamin .COMPLEX #90 tabs D3) omeprazole 20 mg capsule,delayed See Rx Instructions .Route 12/16/23 01/13/24 Rx release .COMPLEX #90 caps potassium chloride 20 mEq See Rx Instructions .Route 12/30/23 01/13/24 Rx tablet,extended release(part/cryst) .COMPLEX #90 tabs galcanezumab-gnlm 120 mg/mL 120 mg SQ QMONTH Migraine #1 mL 01/02/24 01/13/24 Rx subcutaneous pen injector (Emgality Pen) nystatin 100,000 unit/gram topical See Rx Instructions .Route 01/02/24 01/13/24 Rx powder ([facility]) .COMPLEX #60 grams semaglutide 2 mg/dose (8 mg/3 mL) 2 mg (0.75 mL) SQ WEEKLY #3 mL 01/02/24 01/13/24 Rx subcutaneous pen injector (Ozempic) cyclobenzaprine 10 mg tablet See Rx Instructions .Route 01/03/24 01/13/24 Rx .COMPLEX #90 tabs azelastine 137 mcg (0.1 %) nasal See Rx Instructions .Route 01/07/24 01/13/24 Rx spray .COMPLEX #60 mL fluticasone 250 mcg-salmeterol 50 1 inh inhalation BID #60 ea 01/07/24 01/13/24 Rx mcg/dose blistr powdr for inhalation ([employer] Inhub) fluticasone propionate 50 See Rx Instructions .Route 01/07/24 01/13/24 Rx mcg/actuation nasal .COMPLEX #16 caps spray,suspension nitrofurantoin 100 mg PO Q12H 10 days #20 caps 01/08/24 01/13/24 Rx monohydrate/macrocrystals 100 mg capsule (Macrobid) New Prescriptions to Start Prescriptions: Allergies Allergy/AdvReac Type Severity Reaction Status Date / Time milk AdvReac Mild Nausea Verified 01/08/24 13:41 Assessment and Plan *Assessment and plan (1) Degenerative disc disease, lumbar: Status: Acute Category: Medical Code(s): M51.36 - Other intervertebral disc degeneration, lumbar region (2) Lumbar facet arthropathy: Status: Acute Category: Medical Code(s): M47.816 - Spondylosis without myelopathy or radiculopathy, lumbar region Plan Patient has had 2 successful lumbar medial branch blocks with her first 1 providing 85% relief for longer than 2 weeks in her second block providing 75 to 80% relief over the last 2 weeks. Patient does have limited range of motion of her lumbar spine and a positive Kemps test. I did discuss with the patient the risk and benefits of the lumbar RFA. Patient would like to proceed forward with this plan of care. Patient has tried and failed conservative therapy including continued at home stretching exercise for longer than 12 weeks between injections. Patient is currently on Flexeril however feels like this does nothing for her pain and did discuss if we could order her something different. I will send in a 2-week supply of baclofen 5 mg 3 times daily as needed. Patient will be submitted for lumbar RFA bilaterally L4-L5 and L5-S1 under fluoroscopy. Patient has been instructed to contact the clinic with any concerns before the next appointment. Dr. Schmitt has reviewed this note and agrees with this plan of care. This note was dictated using voice recognition software and make contain errors or omissions. All injections are used with Lidocaine or Bupivacaine and Depo Medrol.
== END 2024-01-13 23:59 | disposition home or self-care (01) ==
PROVIDERS: PCP Nurse Practitioner Family; Visit Provider Nurse Practitioner Family
DX: M51.36 Other intervertebral disc degeneration, lumbar region (principal); M47.816 Spondylosis without myelopathy or radiculopathy, lumbar region
CPT/HCPCS: 99212; G0463

== ENCOUNTER 2024-01-23 08:00 | Outpatient (RCR) | payer MEDICARE, SELFPAY ==
--- NOTE | 2024-01-15 10:03 | HMH.PTOPEV ---
PT Outpatient Evaluation Rehab PT Outpatient Evaluation Start: 01/15/24 08:06 Freq: Status: Active Protocol: Document 01/15/24 08:54 AFUA (Rec: 01/15/24 10:03 AFUA [id number]) E-signed By Clay Howell, PT Outpatient Therapy Subjective History Subjective History Patient is a 63 year old female presenting to outpatient PT with reports of chronic mid/lower thoracic spine pain starting approx 3 years ago of insidious onset. No recent thoracic spine imaging to report. Patient reports intermittent NT to LUE C7-8. Comorbidities include hx of CAD, HTN, HL, T TKA ( both approx 4-5 years ago). New diagnosis of cancer in past 12 No months? Chief Complaint Pain,Stiff Symptom Type Ache,Throb Symptoms Relieved By Heat,OTC Meds Symptoms Aggravated By Lifting Prior Functional Limitations None Current Functional Limitations Reaching,Lifting,Housework, Driving Symptom Description Constant but Variable Level of pain today (0-10) 5 Pain scale - at its best (0-10) 4 Pain scale - at its worst (0-10) 8 Lumbopelvic Eval Posture Thoracic Spine Posture Standing Position Increased Kyphosis Lumbar Spine Posture Standing Position Increased Lordosis Assistive device Assistive Devices None / NA Palapation tenderness bilateral thoracic spinal tenderness Yes: T8-12 3/4 Accessory Movement T-spine Vertebrae Accessory Movements Central P/A Howard that Elicit Symptoms T10 bilateral T11 bilateral T12 bilateral Range of Motion Lumbar Spine ROM Reason Not Measured Within Functional Limits Manual Muscle Test Bilateral Knee Extension Strength Grade 5 Normal Knee Flexion Strength Grade 5 Normal Hip Flexion Strength Grade 5 Normal Extensor Hallucis Longus Strength Grade 5 Normal Ankle Dorsiflexion Strength Grade 5 Normal Gastronemius/Soleus Strength Grade 5 Normal Altered Sensation Left Comment Intermittent NT to C 7/8 dermatomes LUE Special Tests Hip Cecil (MUSA) Test Positive Left,Positive Right Hip Cheo Test Positive Left,Positive Right Hip Piriformis Test Positive Left,Positive Right Sciatic Nerve Tension Test Negative Left,Negative Right Sacroiliac Joint Compression Test Negative Left,Negative Right Sacroiliac Joint Distraction Test Negative Left,Negative Right Oswestry Index Section 1 Pain Intensity The pain is moderate and does not vary much Section 2 Personal Care (Washing,Dresing) change my way of washing or dressing in order to avoid pain Section 3 Lifting Pain prevents me from lifting weights off the floor Section 4 Walking I have no pain when walking Section 5 Sitting Pain prevents me from sitting for more than one hour Section 6 Standing I cannot stand more than 1 hour without increasing pain Section 7 Sleeping I get no pain in bed Section 8 Social Life Pain has no significant effect on my social life apart from limiting Section 9 Traveling I get no pain when traveling Section 10 Changing Degreee of Pain My pain is gradually getting worse Score and Risk Level Oswestry Sc 15 Oswestry Risk Level Moderate Disability Outpatient Therapy Assessment Impairments Problems/Impairmments Palpation Tenderness,Impaired Driving,Impaired Lifting, Impaired Household Care, Impaired Recreational Activities,Impaired Work Activities,Subjective C/O Pain Prognosis Rehab Potential Good Clinical Impression Consistent with Diagnosis Yes Short Term Goals Number of Weeks 2 Decrease Subjective C/O Pain Yes: 10/24 at worst Patient to be Ind w/ HEP Yes Jail Goals Number of Weeks 4-6 Decreased Palpation Tenderness Yes: 1/4 Increase Ability to Walk Yes: 30 min witout difficulty Restore Ability to Lift Objects to Yes: 10 lb without difficulty Shoulder Level Restore Ability to Lift Objects Overhead Yes: Improve Oswestry Score Yes: mild disability Decrease Subjective C/O Pain Yes: 2/10 at worst Outpatient Therapy Plan of Care Treatment Plan May Include Therapeutic Exercise Including Home Yes Exercise Program Manual Therapy Techniques Yes Neuromuscular Re-education Yes Therapeutic Activities to Return to Yes Previous Functional/Work Level Mechanical Traction Yes Dry Needling Yes Thermal Modalities Yes Electrical Stimulation Yes Ultrasound/Phonophoresis Yes Iontophoresis Yes Orthotics/Bracing/Splinting Yes Vasopneumatic Compression Pump Yes Massage Yes Eval/Re-Eval Yes Frequency Times per week 2 Duration Number of Weeks 4-6 Addendums This patient is a candidate for social No or vocational rehab? Patient/Guardian verbally acknowledges Yes understanding of treatment program and consents to further treatment? Patient/Guardian verbally acknowledges Yes understanding of diagnosis, prognosis and goals for treatment? Shoulder/Elbow Eval Shoulder Objective Measurements Elbow Objective Measurements PHYSICIAN CERTIFICATION: I certify the specified therapy services for Parul Leone are required, authorized, and reviewed every 30 days.
== END 2024-01-23 08:05 | disposition home or self-care (01) ==
LOC: PT 08:00
PROVIDERS: Visit Provider Nurse Practitioner Family
DX: M54.9 Dorsalgia, unspecified (principal); G89.29 Other chronic pain
CPT/HCPCS: 97014; 97035; 97110; 97163; 97530; G0283

== ENCOUNTER 2024-01-28 09:17 | Day surgery (SDC) | payer MEDICARE, SELFPAY ==
[2024-01-28 09:50] VITALS: BP 98/55; PULSE 70; RESP 16; TEMP 36.2; O2SAT 93; BMI 26.5
[2024-01-28] MEDS: methylPREDNISolone ACETATE 80MG/ML VIAL 80 MG (09:55)
[2024-01-28] MEDS: BUPIVACAINE 0.25% 10ML INJ 25 MG IJ (09:56)
[2024-01-28] MEDS: LIDOCAINE 1% 5ML PF VIAL 15 ML (09:56)
[2024-01-28 09:59] VITALS: BP 92/55; PULSE 75; RESP 18; O2SAT 97
[2024-01-28 10:01] VITALS: BP 92/55; PULSE 75; RESP 18; O2SAT 97
[2024-01-28 10:07] VITALS: BP 91/62; PULSE 74; RESP 18; O2SAT 94
--- NOTE | 2024-01-28 10:07 | P.PCN_ITS ---
Procedure Date: 01/28/24 Time: 09:50 Anesthesiologist:: Cecil Montemayor CRNA Complications:: None Pre-procedure Diagnosis:: Degenerative disc lumbar spine multilevels. Lumbar radiculopathy. Lumbar spondylosis. Multilevel lumbar facet arthropathy. Post-procedure Diagnosis:: Same. Indications for Procedure:: Patient is a very pleasant 63-year-old female comes our clinic today for bilateral lumbar radiofrequency ablation at the L4-5 and L5-S1 level. Patient describes low back pain increases with flexion, extension, left and right rotation. She rates her pain 7/10. Patient had significant improvement terms of her overall low back pain as well as bilateral hip pain with 2 rounds of m edial branch block at same level. Procedure Details:: Procedure Details: Bilateral lumbar RFA L4-5, L5-S1 Informed consent was obtained and the risk and benefits of the procedure was explained to the patient. Patient was placed prone on the procedure table. The patient was prepped and draped in sterile fashion. C-arm fluoroscopy was used to view the lumbar spine. The skin and subcutaneous tissues were anesthetized using lidocaine. I placed 20-gauge RF needles into the facet joints of L3-L4, L4-L5 and L5-S1 on the left side. We underwent sensory stimulation. There is good sensory stimulation at 0.8 V. We underwent motor stimulation. There is no motor stimulation at 2 V. We then anesthetized these levels with lidocaine and Depo- Medrol. I used a total of 40 mg Depo-Medrol for all 3 levels. I then burned all 3 levels of L3-L4, L4-5 and L5-S1 on the left side for 4 minutes at 80 ?C. The right side was done in a similar fashion at the L4-5 and L5-S1 level. Patient tolerated the procedure well with no complication. Plan and Disposition:: We will follow-up with this patient in 2 weeks. We will reevaluate her symptoms at that time. Plan and Disposition:: Patient was discharged without incident.
== END 2024-01-28 10:07 | disposition home or self-care (01) ==
PROVIDERS: PCP Nurse Practitioner Family; Visit Provider Nurse Anesthetist, Certified Registered
DX: M51.16 Intervertebral disc disorders with radiculopathy, lumbar region (principal); M47.816 Spondylosis without myelopathy or radiculopathy, lumbar region
CPT/HCPCS: 64635; 64636; J1010

== ENCOUNTER 2024-01-30 07:50 | Outpatient (CLI) | payer MEDICARE, SELFPAY ==
--- NOTE | 2024-01-30 07:51 | MR_ITS ---
FINAL REPORT CLINICAL HISTORY: Mid-Back pain COMPARISON: 10/19/2021 FINDINGS: Multiplanar MR imaging of the thoracic spine was performed without contrast. On the sagittal T2-weighted images, disc degeneration is seen throughout. Again identified are masses at multiple levels consistent with hemangiomas. There is no evidence of fracture. The vertebral alignment is normal. The thoracic spinal cord has an unremarkable appearance without evidence of mass, edema or syrinx. There is no evidence of significant canal stenosis or cord compression. On the axial images, mild disc bulges and small osteophytes are seen at multiple levels. There is a small right paracentral T9-10 disc protrusion which is stable. There is no evidence of significant canal stenosis or cord compression. No paraspinous soft tissue abnormality is identified. IMPRESSION: Multilevel mild degenerative disc disease and spondylosis. Stable right paracentral T9-10 disc protrusion. Reviewed, Interpreted and Dictated by Randy Leach III, MD Transcribed by Addie Jules Authenticated and [facility] [place] [place]
== END 2024-01-30 23:59 | disposition home or self-care (01) ==
LOC: RAD 07:51
PROVIDERS: PCP Nurse Practitioner Family; Visit Provider Nurse Practitioner Family
DX: G89.29 Other chronic pain; M51.34 Other intervertebral disc degeneration, thoracic region
CPT/HCPCS: 72146

== ENCOUNTER 2024-02-03 15:59 | Outpatient (CLI) | payer MEDICARE, SELFPAY ==
[2024-02-03 15:40] LABS: Microscopic, Urine URINE MICROSCOPIC (MICROSCOPIC)
[2024-02-03 16:52] LABS: Appearance,Urine CLEAR (Clear); Bilirubin,Urine Negative (Negative); Blood, Urine Negative (Negative); Color,Urine YELLOW (Yellow); Glucose,Urine (UA) Negative (Negative); Ketones,Urine Negative (Negative); Leukocyte Esterase,Urine 1+ (Negative); Nitrate,Urine POSITIVE (Negative); Protein,Urine Negative (Negative); Urobilinogen,Urine 0.2 EU/dl (0.2)
[2024-02-03 17:18] LABS: Bacteria,Urine 3+ /lpf
[2024-02-07 21:08] LABS: Atopobium vaginae Low - 0 Score (.); BVAB2 Low - 0 Score (.); Candida albicans NAA Negative (Negative); Candida glabrata Negative (Negative); Chlamydia Trachomatis NAA Negative (Negative); HSV 1 NAA Negative (Negative); HSV 2 NAA Negative (Negative); Megasphaera 1 Low - 0 Score (.); Neisseria gonorrhoeae NAA Negative (Negative); Trich vag NAA Negative (Negative)
== END 2024-02-03 23:59 | disposition home or self-care (01) ==
LOC: LAB.DROPOF 15:59
PROVIDERS: PCP Urology; Visit Provider Urology
DX: N95.2 Postmenopausal atrophic vaginitis (principal); N39.41 Urge incontinence; N39.0 Urinary tract infection, site not specified; B96.89 Other specified bacterial agents as the cause of diseases classified elsewhere
CPT/HCPCS: 81001; 87086; 87088; 87186; 87491; 87529; 87591; 87661; 87798; 87801

== ENCOUNTER 2024-02-05 10:31 | Outpatient (CLI) | payer MEDICARE, SELFPAY ==
--- NOTE | 2024-02-05 10:32 | US_ITS ---
FINAL REPORT CLINICAL HISTORY: PVR -- UTI COMPARISON: None FINDINGS: ULTRASOUND BLADDER WITH POST VOID RESIDUAL Bladder volumes were estimated based on 3 dimensional measurements, pre- and postvoid. Prevoid bladder volume: 300 mls Postvoid bladder volume: 14 mls IMPRESSION: Estimated bladder volumes as above with minimal postvoid residual . Reviewed, Interpreted and Dictated by Tyrone Russell MD Transcribed by Margoth Reyes Authenticated and [facility]
--- NOTE | 2024-02-05 10:32 | US_ITS ---
FINAL REPORT CLINICAL HISTORY: PVR COMPARISON: None FINDINGS: RENAL ULTRASOUND Ultrasound images of the kidneys were obtained. The right kidney measures 10.7 cm in length. It is normal echogenicity. There is no hydronephrosis. The left kidney measures 9.8 cm in length. It is normal echogenicity. There is no hydronephrosis. IMPRESSION: Normal renal ultrasound. Reviewed, Interpreted and Dictated by Tyrone Russell MD Transcribed by Margoth Reyes Authenticated and [facility]
== END 2024-02-05 23:59 | disposition home or self-care (01) ==
LOC: RAD 10:32
PROVIDERS: PCP Nurse Practitioner Family; Visit Provider Urology
DX: N39.0 Urinary tract infection, site not specified (principal)
CPT/HCPCS: 76770; 76857

== ENCOUNTER 2024-02-28 11:45 | Day surgery (SDC) | payer MEDICARE, SELFPAY ==
[2024-02-28 12:08] VITALS: BMI 26.9
[2024-02-28 12:09] VITALS: BP 96/53; PULSE 72; RESP 18; TEMP 36.7; O2SAT 94
[2024-02-28 12:22] LABS: POC Glucose,Bedside 122 (70-110)
[2024-02-28] MEDS: 0.9 % SODIUM CHLORIDE 1000ML 1,000 ML 25 ML IV (12:23)
[2024-02-28 12:28] VITALS: BP 86/46; PULSE 71; RESP 18; TEMP 36.2; O2SAT 96
[2024-02-28 15:14] LABS: Microscopic,Cath URINE MICROSCOPIC (MICROSCOPIC)
[2024-02-28 15:22] LABS: Appearance,Urine/Cath CLEAR (Clear); Bilirubin,Cath Negative (Negative); Blood, Urine/Cath Negative (Negative); Color,Urine/Cath YELLOW (Yellow); Glucose,Urine/Cath (UA) Negative (Negative); Ketones,Urine/Cath Negative (Negative); Leukocyte Esterase,Cath Negative (Negative); Nitrate,Cath Negative (Negative); Protein,Urine/Cath Negative (Negative); Urobilinogen,Cath 0.2 EU/dl (0.2)
[2024-02-28 16:13] LABS: Bacteria,Urine/Cath TRACE /lpf; Squamous Epithelial Ur./Cath Occasional #/hpf (0-5)
--- NOTE | 2024-03-30 09:15 | HMH.PROCNOTE ---
[facility] Procedure Note Date: 02/28/24 Time: 09:15 Procedure Note:: Preop diagnosis: UTI Postop diagnosis: UTI/atrophic vaginitis Operative note. Patient was brought to the cystoscopy suite she was prepped and draped in the usual fashion she underwent cystoscopy. She has mild urethritis noted. She has some atrophic vaginitis being postmenopausal. The patient's bladder itself is free of stone tumor hemorrhage or infection. The ureteral orifice ease are normal bilaterally with clear E flux of urine. The patient tolerated the procedure well.
== END 2024-02-28 12:38 | disposition home or self-care (01) ==
PROVIDERS: PCP Nurse Practitioner Family; Visit Provider Urology
PROC: 0TJB8ZZ Inspection of Bladder, Via Natural or Artificial Opening Endoscopic (ICD-10-PCS; CPT 52000; principal; 2024-02-28 12:45)
DX: N39.0 Urinary tract infection, site not specified (principal); N95.2 Postmenopausal atrophic vaginitis; E11.8 Type 2 diabetes mellitus with unspecified complications; Z79.84 Long term (current) use of oral hypoglycemic drugs
CPT/HCPCS: 52000; 81001; 82962; J7030

== ENCOUNTER 2024-03-03 21:46 | Outpatient (CLI) | payer MEDICARE, SELFPAY | END 2024-03-03 23:59 | disposition home or self-care (01) | LOC: LAB.DROPOF 21:48 | PROVIDERS: PCP Nurse Practitioner Family; Visit Provider Nurse Practitioner Family | DX: E11.9 Type 2 diabetes mellitus without complications (principal) | CPT/HCPCS: 82043; 82570 ==

== ENCOUNTER 2024-03-03 21:50 | Outpatient (CLI) | payer MEDICARE, SELFPAY ==
[2024-03-03 22:26] LABS: Basophils % 0.4 % (0.1-2.0); Eosinophils # 0.1 K/mm3 (0.0-0.4); Eosinophils % 1.5 % (0.1-12.0); Hemoglobin 11.9 g/dL (12.2-16.2); Lymphocytes % 22.8 % (10-50); Mean Corpuscular HGB Conc 30.5 g/dL (31.8-35.4); Mean Corpuscular Hemoglobin 29.5 pg (27.0-31.2); Mean Corpuscular Volume 96.8 fl (81-99); Mean Platelet Volume 7.6 fl (7.4-10.4); Monocytes # 0.4 K/mm3 (0.1-1.0); Monocytes % 4.5 % (1.7-9.3); Neutrophils # 6.1 K/mm3 (1.8-7.8); Neutrophils % 70.6 % (37.0-80.0); Platelet Count 360 K/mm3 (142-424); Red Blood Count 4.02 M/mm3 (4.20-5.40); Red Cell Distribution Width 14.6 % (11.5-17.5); White Blood Count 8.7 K/mm3 (4.8-10.8)
[2024-03-03 22:42] LABS: Creatinine,Urine Random 58 mg/dL (Not Estab.)
[2024-03-03 22:52] LABS: Microalbumin < 6.000 mg/L (0-16.7)
== END 2024-03-03 23:59 | disposition home or self-care (01) ==
LOC: LAB.DROPOF 21:51
PROVIDERS: PCP Nurse Practitioner Family; Visit Provider Nurse Practitioner Family
DX: K74.60 Unspecified cirrhosis of liver (principal); E11.9 Type 2 diabetes mellitus without complications
CPT/HCPCS: 82043; 82570; 85025

== ENCOUNTER 2024-03-31 07:50 | Outpatient (CLI) | payer MEDICARE, SELFPAY ==
--- NOTE | 2024-03-31 07:50 | MM_ITS ---
PROCEDURE INFORMATION: Exam: MG Bilateral Screening 3D Mammography Exam date and time: 03/31/2024 7:52 AM Age: 63 years old Clinical indication: Screening examination. TECHNIQUE: Imaging protocol: Bilateral Screening tomosynthesis and 2D mammography including computer-aided detection (CAD) when performed. COMPARISON: 1. MG MM DIG SCREENING MAMM BI W/CAD 03/26/2023 11:00 AM 2. MG MM DIG SCREENING MAMM BI W/CAD 12/07/2022 1:33 PM FINDINGS: MAMMOGRAPHY: Breast composition: There are scattered areas of fibroglandular density. Mass: None. Architectural distortion: None. Calcifications: No suspicious calcifications. Asymmetric density: None. Skin thickening: None. Axillary adenopathy: None. IMPRESSION: No mammographic evidence of malignancy. Annual screening is recommended unless otherwise clinically indicated. ASSESSMENT: BI-RADS Category 1: Negative.
== END 2024-03-31 23:59 | disposition home or self-care (01) ==
LOC: RAD 07:50
PROVIDERS: PCP Nurse Practitioner Family; Visit Provider Nurse Practitioner Family
DX: Z12.31 Encounter for screening mammogram for malignant neoplasm of breast (principal)
CPT/HCPCS: 77063; 77067

== ENCOUNTER 2024-05-06 10:04 | Outpatient (CLI) | payer MEDICARE, SELFPAY ==
[2024-05-07 10:01] LABS: Albumin Level 3.9 g/dl (3.5-5.0); Chloride 104 mmol/L (98-107); Potassium 3.4 mmoL/L (3.5-5.1); Sodium 139 mmol/L (136-145)
[2024-05-07 10:04] LABS: Alanine Aminotransferase 22 U/L (12-78); Alkaline Phosphatase 104 U/L (38-126); Anion Gap 11.4 mEq/L (5-15); Aspartate Amino Transferase 35 U/L (14-36); Bilirubin,Total 0.5 mg/dl (0.2-1.3); Blood Urea Nitrogen 13 mg/dl (7-17); Carbon Dioxide 27 mmol/L (22.0-30.0); Estimated Glomerular Filt Rate 73 ml/min (>60); GFR (African American) 88 ML/MIN (>60); Total Protein,Serum 5.9 g/dl (6.3-8.2)
[2024-05-07 10:05] LABS: Calcium 8.5 mg/dl (8.4-10.2); Glucose 85 mg/dl (74-100)
[2024-05-07 10:28] LABS: Creatinine,Urine Random 97 mg/dL (Not Estab.)
[2024-05-07 10:32] LABS: Microalbumin < 6.000 mg/L (0-16.7)
== END 2024-05-06 23:59 | disposition home or self-care (01) ==
LOC: LAB.DROPOF 05-07 10:04
PROVIDERS: PCP Nurse Practitioner Family; Visit Provider Nurse Practitioner Family
DX: M51.34 Other intervertebral disc degeneration, thoracic region (principal); Z79.899 Other long term (current) drug therapy
CPT/HCPCS: 80053; 82043; 82570

== ENCOUNTER 2024-05-08 09:15 | Outpatient (POV) | payer MEDICARE, SELFPAY ==
[2024-05-08 09:27] VITALS: BP 110/61; PULSE 84; RESP 16; O2SAT 93; BMI 25.7
--- NOTE | 2024-05-08 09:30 | EXP.PAIN.SOA ---
[facility] Disclaimer: The information contained in this section may have been updated after the patient was seen, as this information can be updated by other users. Medical History Major depressive disorder Migraine headache Chronic pain Dyspnea Bilateral hearing loss Bilateral tinnitus Hearing loss Asthma Allergic rhinitis Sleep disorder breathing Seasonal allergies Chronic cough Asthma exacerbation Mild persistent asthma Noise-induced hearing loss of both ears Tinnitus of right ear Tinnitus of left ear Abnormal stress test Obesity 29 pound weight loss since October, taking Ozempic Encounter for pre-operative cardiovascular clearance Chest pain Dyspnea Sinus tachycardia Abnormal electrocardiography Swelling of left lower extremity Preoperative clearance Dyspnea Chest pain HHD (hypertensive heart disease) Surgical History History of tubal ligation X2 -had this done; and 3 years later got -and had this done again History of cholecystectomy History of hysterectomy History of heart artery stent History of cardiac cath History of arthroscopic knee surgery Family History Other Coronary artery disease Diabetes Hyperlipidemia Hypertension No significant family history Thyroid disorder Social History Smoking Status: Former smoker second hand exposure: No alcohol intake: current alcohol intake frequency: holidays/special occasions only counseling given: No substance use type: denies use counseling given: No current occupational status: disabled adopted: No caregiver/support person: No foster care: No household members: family housing: house lives independently: No marital status: number of children: 2 number of grandchildren: 4 education level: college current occupational exposures/hazards: No Hx Recent Travel: No sexually active: No caffeine: Yes physical activity: none abelardo/yazidism: None special abelardo needs: No working smoke detector in home: Yes fire extinguisher in home: No carbon monox detector in home: No firearms in home: No do you feel safe at home: Yes victim of physical abuse: No victim of emotional abuse: No victim of sexual abuse: No would you like helpful sources: No PM Subjective & Objective Subjective Subjective:: Patient is a pleasant 63-year-old female who presents today for worsening pain. Today she rates her pain a 7 out of 10. Patient denies any new trauma or injury from our last visit. She does state that the lumbar ablation did provide at least 80% and feels like that still helping her low back. Today her complaint is all in her mid back around her ribs. She describes this as an aching, throbbing sensation with numbness and tingling that radiates downward and does interfere with her ability to perform activities of daily living such as cooking and cleaning. She states that mornings are not as bad however by the end of the day she is in. I have continued due to the worsening mid back pain. Patient has continued to use a heating pad along with oral medications, topicals and at home stretching exercise for longer than 12 weeks. At her last visit we did prescribe her baclofen 5 mg 3 times daily however she states that she really did not notice significant relief with this. Her Amador has been reviewed and is appropriate. Review of Systems: General: No recent weight changes, no fever, no sleep disturbances Respiratory: No cough, no shortness of air, no recurring pulmonary infections Cardiovascular/peripheral vascular: No chest pain, no palpitations, no edema, no shortness of breath Gastrointestinal: No new onset incontinence, normal bowel movements reported Genitourinary: No new onset incontinence Musculoskeletal: Mid back pain, rib pain/numbness Psychiatric: [Normal mood/affect] Neurological: [Denies weakness in extremities], [denies balance issues] Pain at rest (0-10 scale): 7 Objective Objective:: Physical Exam: General: Alert and oriented x3, no acute distress, pleasant and cooperative Lungs: Respirations even and unlabored, symmetrical chest expansion Eyes: PERRL Musculoskeletal: Flexion and extension of thoracic [spine] somewhat guarded secondary to pain, extreme point tenderness along lower thoracic Neurological: Speech clear, no gross sensory deficit Has patient had previous pain injection?: Yes Percent improvement in pain since last injection: 80% lumbar RFA Conservative treatment options previously tried: Home exercise plan Length of treatment: Longer than 12 weeks Meds Home Medications and Allergies Home Medications ?Medication ?Instructions ?Recorded ?Confirmed ?Type cetirizine 10 mg tablet 10 mg PO DAILY Allergy symptoms 04/14/21 05/06/24 Rx #60 tabs alcohol swabs (DropSafe Alcohol See Rx Instructions .Route 11/09/22 05/06/24 Rx Prep Pads) .COMPLEX #200 swabs ketotifen fumarate 0.025 % (0.035 See Rx Instructions .Route 01/14/23 05/06/24 Rx %) eye drops .COMPLEX #5 mL ipratropium 0.5 mg-albuterol 3 mg 3 ml inhalation QID PRN shortness 05/28/23 05/06/24 Rx (2.5 mg base)/3 mL nebulization of breath or wheezing #90 mL soln multivitamin (Daily Multi-Vitamin 1 tab PO DAILY #30 tabs 06/14/23 05/06/24 Rx tablet) blood sugar diagnostic (True #100 ea 09/19/23 05/06/24 Rx Metrix Glucose Test Strip) blood-glucose meter (True Metrix #1 ea 09/19/23 05/06/24 Rx Air Glucose Meter kit) albuterol sulfate 90 mcg/actuation 2 inh inhalation Q6HP PRN 10/01/23 05/06/24 Rx aerosol inhaler Shortness Of Breath #8.5 grams trazodone 150 mg tablet 150 mg PO DAILY #90 tabs 11/18/23 05/06/24 Rx ergocalciferol (vitamin D2) 1,250 See Rx Instructions .Route 02/07/24 05/06/24 Rx mcg (50,000 unit) capsule (Vitamin .COMPLEX #14 caps D2) colestipol 1 gram tablet See Rx Instructions .Route 02/10/24 05/06/24 Rx .COMPLEX #90 tabs lisinopril 2.5 mg tablet See Rx Instructions .Route 02/14/24 05/06/24 Rx .COMPLEX #90 tabs metoprolol succinate 50 mg See Rx Instructions .Route 02/18/24 05/06/24 Rx tablet,extended release 24 hr .COMPLEX #45 tabs nystatin 100,000 unit/gram topical See Rx Instructions .Route 02/21/24 05/06/24 Rx powder ([facility]) .COMPLEX #60 grams semaglutide 2 mg/dose (8 mg/3 mL) 2 mg (0.75 mL) SQ WEEKLY #3 mL 02/21/24 05/06/24 Rx subcutaneous pen injector (Ozempic) furosemide 80 mg tablet See Rx Instructions .Route 02/23/24 05/06/24 Rx .COMPLEX #180 tabs estradiol 0.01% (0.1 mg/gram) See Rx Instructions vaginal 02/24/24 05/06/24 Rx vaginal cream .COMPLEX #42.5 grams oxybutynin chloride 10 mg 10 mg PO DAILY #90 tabs 02/24/24 05/06/24 Rx tablet,extended release 24 hr trimethoprim 100 mg tablet 100 mg PO HS #30 tabs 02/24/24 05/06/24 Rx clopidogrel 75 mg tablet 75 mg PO DAILY Blood thinner #90 03/12/24 05/06/24 Rx tabs magnesium oxide 400 mg PO BID #60 tabs 03/12/24 05/06/24 Rx hydroxyzine pamoate 25 mg capsule 25 mg PO HS SLEEP #90 caps 03/15/24 05/06/24 Rx montelukast 10 mg tablet See Rx Instructions .Route 03/18/24 05/06/24 Rx .COMPLEX #90 tabs cholecalciferol (vitamin D3) 25 See Rx Instructions .Route 03/19/24 05/06/24 Rx mcg (1,000 unit) tablet (Vitamin .COMPLEX #90 tabs D3) metformin 1,000 mg tablet See Rx Instructions .Route 03/19/24 05/06/24 Rx .COMPLEX #180 tabs omeprazole 20 mg capsule,delayed See Rx Instructions .Route 03/19/24 05/06/24 Rx release .COMPLEX #90 caps potassium chloride 20 mEq See Rx Instructions .Route 03/19/24 05/06/24 Rx tablet,extended release(part/cryst) .COMPLEX #90 tabs alendronate 70 mg tablet See Rx Instructions .Route 03/27/24 05/06/24 Rx .COMPLEX #14 tabs cariprazine 1.5 mg capsule See Rx Instructions .Route 04/06/24 05/06/24 Rx (Vraylar) .COMPLEX #30 caps azithromycin 250 mg tablet See Rx Instructions PO .COMPLEX #6 04/08/24 05/06/24 Rx (Zithromax Z-Parag) tabs rimegepant 75 mg disintegrating 75 mg PO DAILYP PRN Migraine 04/08/24 05/06/24 Rx tablet Headache #10 tabs atorvastatin 80 mg tablet (Lipitor) 80 mg PO DAILY #30 tabs 04/30/24 05/06/24 Rx fluoxetine 40 mg capsule See Rx Instructions .Route 04/30/24 05/06/24 Rx .COMPLEX #180 caps fluticasone 250 mcg-salmeterol 50 1 inh inhalation BID #60 ea 04/30/24 05/06/24 Rx mcg/dose blistr powdr for inhalation (Wixela Inhub) fluticasone propionate 50 See Rx Instructions .Route 04/30/24 05/06/24 Rx mcg/actuation nasal .COMPLEX #16 caps spray,suspension galcanezumab-gnlm 120 mg/mL 120 mg SQ QMONTH Migraine #1 mL 04/30/24 05/06/24 Rx subcutaneous pen injector (Emgality Pen) hydrocodone 5 mg-acetaminophen 325 1 tab PO BID PRN pain #60 tabs 05/06/24 05/06/24 Rx mg tablet New Prescriptions to Start Prescriptions: Allergies Allergy/AdvReac Type Severity Reaction Status Date / Time milk AdvReac Mild Nausea Verified 05/06/24 10:51 Assessment and Plan *Assessment and plan (1) DDD (degenerative disc disease), thoracic: Status: Acute Category: Medical Code(s): M51.34 - Other intervertebral disc degeneration, thoracic region (2) Thoracic radiculopathy: Status: Acute Category: Medical Code(s): M54.14 - Radiculopathy, thoracic region (3) Thoracic spondylitis: Status: Acute Category: Medical Code(s): M46.94 - Unspecified inflammatory spondylopathy, thoracic region Plan Patient is experiencing worsening pain in her mid back that does radiate outward to her ribs with numbness and tingling and going down towards her low back. Patient did have limited range of motion of her thoracic spine with extreme point tenderness along her lower thoracic. I did discuss with the patient that she may benefit from thoracic epidural steroid injection. Risk and benefits were discussed with the patient and she would like to proceed forward with this plan of care. Patient has tried and failed conservative therapy including continued at home stretching exercise for longer than 12 weeks. Patient has been experiencing mid back pain for longer than 3 months and it has remained unchanged. We will schedule the patient for a tentative T11-T12 thoracic epidural. Patient is currently on blood thinners written by Dr. Gonzales's office and we will reach out to this provider to confirm she can stop this medication prior to this injection. This injection will be done under guidance. I will also send in a prescription of baclofen 10 mg 3 times daily and provide a 1 month supply of this medication. Patient has been instructed to contact the clinic with any concerns before the next appointment. Dr. Schmitt has reviewed this note and agrees with this plan of care. This note was dictated using voice recognition software and make contain errors or omissions. All injections are used with Lidocaine or Bupivacaine and Depo Medrol.
== END 2024-05-08 23:59 | disposition home or self-care (01) ==
PROVIDERS: PCP Nurse Practitioner Family; Visit Provider Nurse Practitioner Family
DX: M51.14 Intervertebral disc disorders with radiculopathy, thoracic region (principal); M46.94 Unspecified inflammatory spondylopathy, thoracic region; Z73.89 Other problems related to life management difficulty; Z79.899 Other long term (current) drug therapy
CPT/HCPCS: 99212; G0463

== ENCOUNTER 2024-06-02 09:25 | Day surgery (SDC) | payer MEDICARE, SELFPAY ==
[2024-06-02 09:34] VITALS: BP 114/52; PULSE 73; RESP 16; TEMP 36.6; O2SAT 96; BMI 25.3
[2024-06-02] MEDS: methylPREDNISolone ACETATE 80MG/ML VIAL 80 MG (10:03)
[2024-06-02 10:04] VITALS: BP 104/50; PULSE 68; PULSE 69; RESP 18; O2SAT 95
[2024-06-02 10:12] VITALS: BP 111/54; PULSE 73; RESP 16; O2SAT 97
--- NOTE | 2024-06-02 12:34 | EXP.PAIN.PRO ---
Procedure Date: 06/02/24 Time: 11:00 Anesthesiologist:: Cecil Montemayor CRNA Complications:: None Pre-procedure Diagnosis:: Degenerative disc lumbar spine multilevels. Lumbar radiculopathy. Degenerative disc thoracic spine multilevels. Thoracic radiculopathy. Disc bulge T11-12. Post-procedure Diagnosis:: Same. Indications for Procedure:: Patient is a very pleasant 63-year-old female who comes our clinic today for thoracic epidural steroid injection at the T11-12 level. She describes high lumbar back pain as constant, dull, aching. She rates the pain 7/10. Patient describes some radicular symptoms around the either side. Procedure Details:: Procedure:Thoracic epidural steroid injection under fluoroscopy Informed consent was obtained and the risks and benefits of the procedure were explained to the patient. The patient was taken to the procedure room and noninvasive monitors placed, including noninvasive blood pressure cuff and pulse oximeter. The back was viewed using C-Arm fluoroscopy and prepped using Betadine as a cleansing solution and the T11-12 interspace was palpated. Skin and subcutaneous tissues were anesthetized using lidocaine 1.5% and a 25-gauge needle. After this, an 18-gauge Touhy epidural needle was placed into the T11-12 interspace and advanced using fluoroscopic guidance and loss of resistance to air until the epidural space was encountered. After confirmation of needle placement in the epidural space, with dye, a solution containing lidocaine 1.5%, 4 mL and Depo-Medrol 80 mg were incrementally injected into the thoracic epidural space. The patient tolerated the procedure well with no complications. The patient was observed in the Pain Clinic and then discharged home neurologically intact. Plan and Disposition:: Patient was discharged without incident.
== END 2024-06-02 10:12 | disposition home or self-care (01) ==
LOC: SC.PAINP 09:26
PROVIDERS: PCP Nurse Practitioner Family; Visit Provider Nurse Anesthetist, Certified Registered
DX: M51.14 Intervertebral disc disorders with radiculopathy, thoracic region (principal); M51.16 Intervertebral disc disorders with radiculopathy, lumbar region
CPT/HCPCS: 62321; J1010

== ENCOUNTER 2024-06-24 09:23 | Outpatient (POV) | payer MEDICARE, SELFPAY ==
[2024-06-24 09:38] VITALS: BP 112/54; PULSE 79; RESP 18; O2SAT 96; BMI 25.1
--- NOTE | 2024-06-24 09:48 | EXP.PAIN.SOA ---
[facility] Disclaimer: The information contained in this section may have been updated after the patient was seen, as this information can be updated by other users. Medical History Major depressive disorder Migraine headache Chronic pain Dyspnea Bilateral hearing loss Bilateral tinnitus Hearing loss Asthma Allergic rhinitis Sleep disorder breathing Seasonal allergies Chronic cough Asthma exacerbation Mild persistent asthma Noise-induced hearing loss of both ears Tinnitus of right ear Tinnitus of left ear Abnormal stress test Obesity 29 pound weight loss since October, taking Ozempic Encounter for pre-operative cardiovascular clearance Chest pain Dyspnea Sinus tachycardia Abnormal electrocardiography Swelling of left lower extremity Preoperative clearance Dyspnea Chest pain HHD (hypertensive heart disease) Surgical History History of tubal ligation X2 -had this done; and 3 years later got -and had this done again History of cholecystectomy History of hysterectomy History of heart artery stent History of cardiac cath History of arthroscopic knee surgery Family History Other Coronary artery disease Diabetes Hyperlipidemia Hypertension No significant family history Thyroid disorder Social History Smoking Status: Former smoker second hand exposure: No alcohol intake: current alcohol intake frequency: holidays/special occasions only counseling given: No substance use type: denies use counseling given: No current occupational status: other Travel in the last 8 weeks: None adopted: No caregiver/support person: No foster care: No household members: family housing: house lives independently: No marital status: number of children: 2 number of grandchildren: 4 education level: college current occupational exposures/hazards: No Hx Recent Travel: No sexually active: No caffeine: Yes physical activity: none abelardo/judaism: None special abelardo needs: No working smoke detector in home: Yes fire extinguisher in home: No carbon monox detector in home: No firearms in home: No do you feel safe at home: Yes victim of physical abuse: No victim of emotional abuse: No victim of sexual abuse: No would you like helpful sources: No PM Subjective & Objective Subjective Subjective:: Patient is a pleasant 63-year-old female who presents today for follow-up of thoracic epidural steroid injection T11-T12 on 06/02/2024. Today she rates her pain a 7 out of 10. She denies any new trauma or injury. She does state that she has had at least 75% improvement following this procedure and feels like it is still helping. Patient was able to move around easier with overall decreased pain and improved function. Patient does state that the baclofen 10 mg 3 times a day from our office did seem much more effective than the 5 mg and is requesting refills. She denies any side effects. Her Amador has been reviewed and is appropriate. Review of Systems: General: No recent weight changes, no fever, no sleep disturbances Respiratory: No cough, no shortness of air, no recurring pulmonary infections Cardiovascular/peripheral vascular: No chest pain, no palpitations, no edema, no shortness of breath Gastrointestinal: No new onset incontinence, normal bowel movements reported Genitourinary: No new onset incontinence Musculoskeletal: Mid back pain Psychiatric: [Normal mood/affect] Neurological: [Denies weakness in extremities], [denies balance issues] Pain at rest (0-10 scale): 7 Objective Objective:: Physical Exam: General: Alert and oriented x3, no acute distress, pleasant and cooperative Lungs: Respirations even and unlabored, symmetrical chest expansion Eyes: PERRL Musculoskeletal: Flexion and extension of thoracic [spine] somewhat guarded secondary to pain, [antalgic gait noted] Neurological: Speech clear, no gross sensory deficit Has patient had previous pain injection?: Yes Percent improvement in pain since last injection: 75% Conservative treatment options previously tried: Home exercise plan Length of treatment: Longer than 12 weeks Meds Home Medications and Allergies Home Medications ?Medication ?Instructions ?Recorded ?Confirmed ?Type cetirizine 10 mg tablet 10 mg PO DAILY Allergy symptoms 04/14/21 06/24/24 Rx #60 tabs alcohol swabs (DropSafe Alcohol See Rx Instructions .Route 11/09/22 06/24/24 Rx Prep Pads) .COMPLEX #200 swabs ketotifen fumarate 0.025 % (0.035 See Rx Instructions .Route 01/14/23 06/24/24 Rx %) eye drops .COMPLEX #5 mL ipratropium 0.5 mg-albuterol 3 mg 3 ml inhalation QID PRN shortness 05/28/23 06/24/24 Rx (2.5 mg base)/3 mL nebulization of breath or wheezing #90 mL soln multivitamin (Daily Multi-Vitamin 1 tab PO DAILY #30 tabs 06/14/23 06/24/24 Rx tablet) blood sugar diagnostic (True #100 ea 09/19/23 06/24/24 Rx Metrix Glucose Test Strip) blood-glucose meter (True Metrix #1 ea 09/19/23 06/24/24 Rx Air Glucose Meter kit) albuterol sulfate 90 mcg/actuation 2 inh inhalation Q6HP PRN 10/01/23 06/24/24 Rx aerosol inhaler Shortness Of Breath #8.5 grams semaglutide 2 mg/dose (8 mg/3 mL) 2 mg (0.75 mL) SQ WEEKLY #3 mL 02/21/24 06/24/24 Rx subcutaneous pen injector (Ozempic) estradiol 0.01% (0.1 mg/gram) See Rx Instructions vaginal 02/24/24 06/24/24 Rx vaginal cream .COMPLEX #42.5 grams oxybutynin chloride 10 mg 10 mg PO DAILY #90 tabs 02/24/24 06/24/24 Rx tablet,extended release 24 hr trimethoprim 100 mg tablet 100 mg PO HS #30 tabs 02/24/24 06/24/24 Rx magnesium oxide 400 mg PO BID #60 tabs 03/12/24 06/24/24 Rx metformin 1,000 mg tablet See Rx Instructions .Route 03/19/24 06/24/24 Rx .COMPLEX #180 tabs azithromycin 250 mg tablet See Rx Instructions PO .COMPLEX #6 04/08/24 06/24/24 Rx (Zithromax Z-Parag) tabs rimegepant 75 mg disintegrating 75 mg PO DAILYP PRN Migraine 04/08/24 06/24/24 Rx tablet Headache #10 tabs atorvastatin 80 mg tablet (Lipitor) 80 mg PO DAILY #30 tabs 04/30/24 06/24/24 Rx fluoxetine 40 mg capsule See Rx Instructions .Route 04/30/24 06/24/24 Rx .COMPLEX #180 caps colestipol 1 gram tablet See Rx Instructions .Route 05/11/24 06/24/24 Rx .COMPLEX #90 tabs metoprolol succinate 50 mg See Rx Instructions .Route 05/11/24 06/24/24 Rx tablet,extended release 24 hr .COMPLEX #45 tabs fluticasone propionate 50 See Rx Instructions .Route 05/18/24 06/24/24 Rx mcg/actuation nasal .COMPLEX #16 caps spray,suspension lisinopril 2.5 mg tablet See Rx Instructions .Route 05/18/24 06/24/24 Rx .COMPLEX #90 tabs ergocalciferol (vitamin D2) 1,250 See Rx Instructions .Route 05/19/24 06/24/24 Rx mcg (50,000 unit) capsule (Vitamin .COMPLEX #14 caps D2) trazodone 150 mg tablet 150 mg PO DAILY #90 tabs 05/25/24 06/24/24 Rx furosemide 80 mg tablet See Rx Instructions .Route 05/26/24 06/24/24 Rx .COMPLEX #180 tabs omeprazole 20 mg capsule,delayed See Rx Instructions .Route 06/03/24 06/24/24 Rx release .COMPLEX #90 caps potassium chloride 20 mEq See Rx Instructions .Route 06/04/24 06/24/24 Rx tablet,extended release(part/cryst) .COMPLEX #90 tabs baclofen 10 mg tablet 10 mg PO TID #90 tabs 06/05/24 06/24/24 Rx hydrocodone 5 mg-acetaminophen 325 1 tab PO BID PRN pain #60 tabs 06/07/24 06/24/24 Rx mg tablet fluticasone 250 mcg-salmeterol 50 1 inh inhalation BID #60 ea 06/08/24 06/24/24 Rx mcg/dose blistr powdr for inhalation (Wixela Inhub) galcanezumab-gnlm 120 mg/mL 120 mg SQ QMONTH Migraine #1 mL 06/08/24 06/24/24 Rx subcutaneous pen injector (Emgality Pen) nystatin 100,000 unit/gram topical See Rx Instructions .Route 06/08/24 06/24/24 Rx powder (Nyamyc) .COMPLEX #60 grams cariprazine 1.5 mg capsule See Rx Instructions .Route 06/11/24 06/24/24 Rx (Vraylar) .COMPLEX #30 caps cholecalciferol (vitamin D3) 25 See Rx Instructions .Route 06/11/24 06/24/24 Rx mcg (1,000 unit) tablet (Vitamin .COMPLEX #90 tabs D3) alendronate 70 mg tablet See Rx Instructions .Route 06/13/24 06/24/24 Rx .COMPLEX #14 tabs clopidogrel 75 mg tablet 75 mg PO DAILY Blood thinner #90 06/16/24 06/24/24 Rx tabs hydroxyzine pamoate 25 mg capsule 25 mg PO HS SLEEP #90 caps 06/23/24 06/24/24 Rx montelukast 10 mg tablet See Rx Instructions .Route 06/23/24 06/24/24 Rx .COMPLEX #90 tabs New Prescriptions to Start Prescriptions: Allergies Allergy/AdvReac Type Severity Reaction Status Date / Time milk AdvReac Mild Nausea Verified 05/06/24 10:51 Assessment and Plan *Assessment and plan (1) Thoracic radiculopathy: Status: Acute Category: Medical Code(s): M54.14 - Radiculopathy, thoracic region Plan Patient has had significant improvement following her thoracic epidural and does not require any additional interventions at this time. Patient will be followed up in clinic in 6 weeks for reevaluation of symptoms and plan of care. I will send in a 90-day supply of the baclofen. Patient has been instructed to contact the clinic with any concerns before the next appointment. Dr. Schmitt has reviewed this note and agrees with this plan of care. This note was dictated using voice recognition software and make contain errors or omissions. All injections are used with Lidocaine, Bupivacaine and Depo Medrol. Occasionally urine drug screen is needed to verify patient's compliance with our office pain contract. This is ordered based off specific treatments related to chronic pain with the potential to abuse certain medications.
== END 2024-06-24 23:59 | disposition home or self-care (01) ==
PROVIDERS: PCP Nurse Practitioner Family; Visit Provider Nurse Practitioner Family
DX: M54.14 Radiculopathy, thoracic region (principal); Z87.891 Personal history of nicotine dependence; Z79.899 Other long term (current) drug therapy
CPT/HCPCS: 99212; G0463

== ENCOUNTER 2024-07-01 13:57 | Outpatient (CLI) | payer MEDICARE, SELFPAY ==
[2024-07-01 15:05] LABS: White Blood Count 6.9 K/mm3 (4.8-10.8)
[2024-07-01 15:06] LABS: Hematocrit 34.6 % (37.0-47.0); Hemoglobin 11.2 g/dL (12.2-16.2); Mean Corpuscular HGB Conc 32.4 g/dL (31.8-35.4); Mean Corpuscular Hemoglobin 28.9 pg (27.0-31.2); Mean Corpuscular Volume 89.4 fl (81-99); Mean Platelet Volume 9.5 fl (7.4-10.4); Platelet Count 300 K/mm3 (142-424); Red Blood Count 3.87 M/mm3 (4.20-5.40); Red Cell Distribution Width 13.7 % (11.5-17.5)
[2024-07-01 15:07] LABS: Basophils % 0.6 % (0.1-2.0); Eosinophils # 0.2 K/mm3 (0.0-0.4); Eosinophils % 2.6 % (0.1-12.0); Lymphocytes # 1.9 K/mm3 (0.7-4.5); Lymphocytes % 27.4 % (10-50); Monocytes # 0.5 K/mm3 (0.1-1.0); Monocytes % 7.5 % (1.7-9.3); Neutrophils # 4.2 K/mm3 (1.8-7.8); Neutrophils % 61.3 % (37.0-80.0)
[2024-07-01 15:18] LABS: Alanine Aminotransferase 34 U/L (12-78); Albumin Level 3.8 g/dl (3.5-5.0); Alkaline Phosphatase 108 U/L (38-126); Anion Gap 8.8 mEq/L (5-15); Aspartate Amino Transferase 38 U/L (14-36); Bilirubin,Direct 0.1 mg/dl (0.0-0.4); Bilirubin,Unconjugated 0.1 mg/dL (0.0-1.1); Blood Urea Nitrogen 17 mg/dl (7-17); Calcium 8.9 mg/dl (8.4-10.2); Carbon Dioxide 32 mmol/L (22.0-30.0); Chloride 102 mmol/L (98-107); Cholesterol 106 mg/dl (140-200); Estimated Glomerular Filt Rate 73 ml/min (>60); GFR (African American) 88 ML/MIN (>60); Glucose 68 mg/dl (74-100); HDL Cholesterol 52 mg/dl (40-60); Magnesium 1.5 mg/dl (1.6-2.3); Potassium 3.8 mmoL/L (3.5-5.1); Sodium 139 mmol/L (136-145); Total Protein,Serum 5.8 g/dl (6.3-8.2); Triglycerides 80 mg/dl (30-150); VLDL Cholesterol 16 mg/dL (0-40)
[2024-07-01 15:23] LABS: Bilirubin,Total 0.1 mg/dl (0.2-1.3)
[2024-07-01 15:28] LABS: Direct LDL Cholesterol 35.88 mg/dL (100-129)
[2024-07-01 15:35] LABS: Free T4 (Free Thyroxine) 1.15 ng/dl (0.78-2.19)
[2024-07-01 15:50] LABS: Thyroid Stimulating Hormone 2.22 uIU/mL (0.465-4.68)
== END 2024-07-01 23:59 | disposition home or self-care (01) ==
LOC: LAB 13:57
PROVIDERS: PCP Nurse Practitioner Family; Visit Provider Physician Assistant
DX: I51.89 Other ill-defined heart diseases (principal); I25.118 Atherosclerotic heart disease of native coronary artery with other forms of angina pectoris; R07.89 Other chest pain; E78.5 Hyperlipidemia, unspecified
CPT/HCPCS: 36415; 80048; 80061; 80076; 83735; 84439; 84443; 85025

== ENCOUNTER 2024-07-10 08:01 | Outpatient (CLI) | payer MEDICARE, SELFPAY ==
[2024-07-10 07:30] VITALS: BMI 26.2
--- NOTE | 2024-07-10 08:07 | CA_ITS ---
APPROVED REPORT EXAM: Comprehensive 2D, Doppler, and color-flow Echocardiogram Section 8 Property Manager: Deb Corey CRT Ht: 5 ft 3 in Wt: 148lbs BSA: 1.70 BP: 104/49 mmHg Indications: Shortness of Breath, Diabetes, CAD, Hyperlipidemia, Hypertension/HDD, ex smoker 2D Dimensions LA Volume 55.60 mL LA Volume Index 32.00 mL/m2 (M/F) 16-34 M-Mode Dimensions RVDd 3.53 cm (0.9-2.6) LA Diam 4.23 cm (1.9-4.0) LVDd 4.43 cm (3.5-5.7) LVDs 2.68 cm (3.5-5.7) IVSd 1.11 cm (0.6-1.1) PWd 0.71 cm (0.6-1.1) EF (Teich) 70.30% FS 39.50% EDV (Teich) 89.10 mL TAPSE 2.38 (<1.7) ESV (Teich) 26.50 mL LV Diastology E Decel Time 153 (160-240 msec) E/A Ratio 0.96 MED A' 12.70 cm/s LAT A' 12.90 cm/s Aortic Valve AO Peak GR. 7.70 mmHg Mitral Valve MV A Velocity 85.0 (40-130 cm/s) E/A Ratio 0.96 Pulmonary Valve PV Peak Velocity 67.0 (50-150 cm/s) Tricuspid Valve TR P. Velocity 278.00 cm/s RAP Estimate 10.00 mmHg RVSP 40.90 mmHg Left Ventricle The left ventricle is normal size. The left ventricular systolic function is normal. The left ventricular ejection fraction is within the normal range. There is normal left ventricular wall thickness. There is normal LV segmental wall motion. The left ventricular diastolic function is normal. LVEF is 55%. Right Ventricle The right ventricle is mildly dilated. The right ventricular systolic function is normal. Atria The left atrium is mildly dilated. The right atrium is mildly dilated. There is no Doppler evidence of interatrial shunt. Aortic Valve The aortic valve is mildly thickened. There is no aortic valvular stenosis. No aortic regurgitation is present. Mitral Valve The mitral valve is normal in structure. No evidence of mitral valve stenosis. Trace mitral regurgitation. Tricuspid Valve Tricuspid valve is grossly normal in structure and function. Trace tricuspid regurgitation. There is insufficient TR jet to estimate RVSP. Pulmonic Valve The pulmonary valve is normal in structure. Trace pulmonic regurgitation. Great Vessels The aortic root is normal in size. The ascending aorta is not well-visualized. IVC is normal in size and collapses >50% with inspiration. Pericardium There is no pericardial effusion. Other Information Study Quality: Fair Conclusion Normal biventricular systolic function. Mild RV dilation. Mild biatrial dilation. No significant valvular stenosis or regurgitation. Electronically signed by : Jessica Dorado MD 07/18/2024 21:42:17
--- NOTE | 2024-07-10 08:13 | CT_ITS ---
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 A noncontrast coronary calcium scan was performed. A CT attenuation threshold of 130 Hounsfield units (HU) was used for the detection of calcium in contiguous voxels of 1 sq mm in area to be counted as individual lesions. Bolus tracking in the ascending aorta with a threshold of 180 HU was performed. Immediately afterwards, ECG synchronized cardiac CT was then performed from the cardiac base to apex using retrospective gating with ECG tube current modulation. A total of 85 mL of Isovue 370 mg/mL contrast medium was administered at 5 mL/sec followed by a saline flush using a biphasic injection protocol. A tube voltage of 120 KVp was used. The patient received the following medications prior to the cardiac CT. 25 mg of oral metoprolol 0.4 mg of sublingual nitroglycerin The average heart rate at the time of acquisition was 63 bpm and regular. Image Reconstruction Transaxial images were reconstructed at 0.67 mm slide thickness. Data was reviewed interactively on an advanced workstation capable of 2 and 3-dimensional displays in all conventional reconstruction formats, including multiplanar reformations, maximum intensity projections, curved multiplanar reformations, and volume rendered reconstructions. When applicable, selected routine images describing the relevant coronary anatomy and pathology were saved and sent to PACS. Complications None Technical Quality Overall image quality was suboptimal due to significant motion, stable artifact, and blurring artifact. Coronary artery opacification was suboptimal. Total DLP (Dose-Length Product) is 1350.7 mGy-cm. The reported value represents the total of one or more individual components during the CT acquisition of this date and at this time, and as such, the same value may appear in more than one CT report depending on the interpreting/reporting physicians. COMPARISON None FINDINGS CT Coronary Calcium Scoring is not performed in the study due to prior history of stenting. Coronary CT Angiography The coronary arterial system is right dominant. Quantitative Stenosis Grading: Left Main (LM): The left main originates normally from the left sinus of Valsalva. The LM bifurcates into the left anterior descending artery and left circumflex artery. There is mild noncalcified in the mid to distal LM segment, with < 25% luminal stenosis. Left Anterior Descending (LAD) and Diagonal Branches: The LAD gives off 3 diagonal branch(es). A stent is present in the proximal LAD segment. Proximal to the stent, there is mixed calcified/noncalcified plaque in the proximal LAD segment with < 25% luminal stenosis. The stented region grossly appears patent, but in-stent restenosis cannot be fully ruled out. Distal to the stent, there is noncalcified plaque present, with up to 50-70% luminal stenosis. There is no evidence of LAD-myocardial bridge. Left Circumflex (LCX) and Obtuse Marginals (OM): The LCX gives off 1 Obtuse Marginal (OM) branch(es). The RCA proximal segment is difficult to visualize due to step artifact. There is mixed calcified plaque in the proximal LCx segment with < 25% luminal stenosis. Right Coronary Artery (RCA): The RCA originates normally from the right sinus of Valsalva. The RCA gives off a posterior descending artery (PDA) and posterolateral (PL) branches. There is mixed calcified/noncalcified plaque in the proximal and mid RCA segments, with up to 30-50% luminal stenosis. Non-Coronary Cardiac Findings: Analysis of the left ventricular (LV) structure and function was performed after 3-D reconstruction of the LV from axial images, with user-corrected automatic contouring for assessment of LV volumes and user-defined reconstruction from oblique planes for measurement of 3-D cardiac structure and function. -The left ventricle systolic function is normal. -There is no left atrial appendage filling defect. Two right pulmonary veins and two left pulmonary veins drain normally into the left atrium. -No pericardial thickening or calcification. -Central and branch pulmonary arteries in the [id number] are unremarkable. -Thoracic aorta within the visualized thoracic aortic-branches in the [id number] is unremarkable. Extracardiac Structures No significant extra-cardiac findings. Note, however, that this study is focused on the cardiac findings. IMPRESSION -Suboptimal imaging quality due to significant blurring, stable artifact, and motion artifact. This may affect the diagnostic interpretation of the study findings. -Coronary calcium scoring is not performed in the study due to prior history of stenting. -Prior history of stenting in the proximal LAD, with grossly patent stented region (in-stent restenosis cannot be entirely ruled out). There is moderate noncalcified plaque in the LAD segment distal to the stent, with up to 50 to 70% luminal stenosis, and therefore possible vidence of significant flow-limiting atherosclerosis in the corresponding region. -The proximal segment of the RCA is not well-visualized due to significant blurring in motion artifact. -CAD-RADS 3. In the setting of difficult CCTA imaging and prior stenting, further evaluation with alternative imaging modalities or invasive coronary angiography, if indicated and feasible, it is suggested due to the nondiagnostic nature of this CCTA. *Recommendations: CAD RADS 0: Reassurance. Consider non-atherosclerotic causes of chest pain. CAD RADS 1: Consider non-atherosclerotic causes of chest pain. Consider preventive therapy and risk factor modification. CAD RADS 2: Consider non-atherosclerotic causes of chest pain. Consider preventive therapy and risk factor modification, particularly for patients with nonobstructive plaque in multiple segments. CAD RADS 3: Consider further functional testing. Consider symptom-guided anti-ischemic and preventive pharmacotherapy as well as risk factor modification per published guideline statements. CAD RADS 4A: Consider further functional testing or invasive coronary angiography with revascularization per published guideline statements. Consider symptom-guided anti-ischemic and preventive pharmacotherapy as well as risk factor modification per published guideline statements. CAD RADS 4B: Invasive coronary angiography recommended with revascularization per published guideline statements. Consider symptom-guided anti-ischemic and preventive pharmacotherapy as well as risk factor modification per published guideline statements. CAD RADS 5: Consider invasive angiography and/or viability assessment with revascularization per published guideline statements. Consider symptom-guided anti-ischemic and preventive pharmacotherapy as well as risk factor modification per published guideline statements. CRITICAL RESULT None COMMUNICATION Per this written report The coronary and cardiac findings of this CCTA were reviewed, reported, and signed by Javier Dorado MD (Felt Machine Mechanic) Conclusion Electronically signed by : Jessica Dorado MD 07/13/2024 12:18:12
[2024-07-10 08:52] VITALS: BP 94/55; PULSE 66; RESP 17; TEMP 36.5; O2SAT 97
[2024-07-10] MEDS: METOPROLOL TARTRATE 50MG TABLET PO (09:05)
[2024-07-10 09:32] LABS: POC Glucose,Bedside 99 (70-110)
[2024-07-10 10:00] VITALS: BP 101/67; PULSE 69; O2SAT 95
[2024-07-10] MEDS: NITROGLYCERIN 0.4MG SL TABLET SL (10:02)
[2024-07-10 10:03] VITALS: BP 93/62; PULSE 62; O2SAT 96
[2024-07-10] MEDS: IOPAMIDOL-370 (76%);100ML BOTTLE 85 ML IV (10:08)
[2024-07-10] MEDS: 0.9 % SODIUM CHLORIDE 50 ML VIAL IV (10:08)
== END 2024-07-10 10:28 | disposition home or self-care (01) ==
PROVIDERS: PCP Nurse Practitioner Family; Visit Provider Physician Assistant
DX: I51.89 Other ill-defined heart diseases (principal); I25.118 Atherosclerotic heart disease of native coronary artery with other forms of angina pectoris; R07.89 Other chest pain
CPT/HCPCS: 75574; 82962; 93306; Q9967

== ENCOUNTER 2024-07-28 07:58 | Day surgery (SDC) | payer MEDICARE, SELFPAY ==
[2024-07-28] VITALS (13 sets, daily range): BP systolic 84–107; BP diastolic 52–67; PULSE 60–72; RESP 16–20; TEMP 36.9; O2SAT 92–99; BMI 26.2
--- NOTE | 2024-07-28 07:23 | IR_ITS ---
APPROVED REPORT Patient Location: Outpatient PROCEDURES Left heart catheterization Left ventriculogram Selective coronary angiogram INDICATION Abnormal Myoview, Known coronary artery disease, Angina pectoris Informed consent was obtained prior to the procedure. COMPLICATIONS NONE Estimated Blood Loss: LESS THAN 10 ML TECHNIQUE One percent lidocaine used to anesthetize the right anterior aspect of the wrist. The right radial artery was accessed via the Seldinger technique. A 6 Ukrainian sheath was placed in the right radial artery. 2.5 mg of Verapamil, 800 mcg of nitroglycerin, 1mg Lidocaine and 5000 U Heparin were given through the arterial sheath. The 6 Ukrainian JL 3 guide catheter was also used to perform left heart catheterization, left ventriculogram and selective coronary angiogram. At the end of the procedure the sheath was removed good hemostasis was achieved using Traclet band, patient was transferred to the postop holding area in stable condition. ANGIOGRAPHIC RESULTS The left main artery Normal The left anterior descending artery Has a stent in the proximal segment which is widely patent free of in-stent restenosis with excellent proximal distal transitioning The circumflex artery Nondominant normal The right coronary artery Dominant normal The LANDERS ventriculogram reveals Normal 65% The left ventricular end-diastolic pressure Elevated at 20 mmHg IMPRESSION Widely patent proximal LAD stent Normal ejection fraction Elevated LVEDP PLAN 1. Risk factor modification and medical management 2. Patient's angina pectoris may be coming from the elevated LVEDP Electronically signed by : James Gonzales MD 07/28/2024 11:45:12
[2024-07-28 08:32] LABS: Basophils % 0.8 % (0.1-2.0); Eosinophils # 0.2 K/mm3 (0.0-0.4); Hematocrit 34.6 % (37.0-47.0); Hemoglobin 11.1 g/dL (12.2-16.2); Lymphocytes # 1.6 K/mm3 (0.7-4.5); Lymphocytes % 31.5 % (10-50); Mean Corpuscular HGB Conc 32.1 g/dL (31.8-35.4); Mean Corpuscular Hemoglobin 28.5 pg (27.0-31.2); Mean Corpuscular Volume 88.7 fl (81-99); Mean Platelet Volume 9.3 fl (7.4-10.4); Monocytes # 0.3 K/mm3 (0.1-1.0); Monocytes % 6.9 % (1.7-9.3); Neutrophils # 2.8 K/mm3 (1.8-7.8); Neutrophils % 56.6 % (37.0-80.0); Platelet Count 260 K/mm3 (142-424); Red Cell Distribution Width 13.7 % (11.5-17.5)
[2024-07-28 08:39] LABS: Chloride 104 mmol/L (98-107); Potassium 3.8 mmoL/L (3.5-5.1); Sodium 138 mmol/L (136-145)
[2024-07-28 08:42] LABS: Anion Gap 7.8 mEq/L (5-15); Blood Urea Nitrogen 14 mg/dl (7-17); Calcium 8.4 mg/dl (8.4-10.2); Carbon Dioxide 30 mmol/L (22.0-30.0); Creatinine Clearance Estimated 62 mL/min (50-200); Estimated Glomerular Filt Rate 101 ml/min (>60); GFR (African American) 123 ML/MIN (>60); Glucose 90 mg/dl (74-100)
[2024-07-28] MEDS: LIDOCAINE 1% 10ML MDV 20 ML IJ (11:26)
[2024-07-28] MEDS: MIDAZOLAM HCL 1MG/ML 5ML VIAL 1 MG IV (11:26)
[2024-07-28] MEDS: FENTANYL 100MCG/2ML VIAL 50 MCG IV (11:26)
[2024-07-28] MEDS: HEPARIN 1,000 UNITS/ML 10ML VIAL (CATH LAB) 10000 UNIT IV (11:27)
[2024-07-28] MEDS: diphenhydrAMINE 50MG/ML VIAL 50 MG IV (11:27)
[2024-07-28] MEDS: HEPARIN 1,000 UNITS/500ML NS (CATH LAB) 3000 UNIT IV (11:27)
[2024-07-28] MEDS: VERAPAMIL 2.5MG/ML 2ML VIAL 2.5 MG IV (11:27)
[2024-07-28] MEDS: NITROGLYCERIN 800MCG/8ML SYR (CATH LAB) 800 MCG IA (11:28)
[2024-07-28] MEDS: IOPAMIDOL-370 (76%);100ML BOTTLE 50 ML IV ×2 (11:57)
== END 2024-07-28 15:02 | disposition home or self-care (01) ==
PROVIDERS: PCP Nurse Practitioner Family; Visit Provider Internal Medicine
DX: I25.118 Atherosclerotic heart disease of native coronary artery with other forms of angina pectoris (principal); I11.9 Hypertensive heart disease without heart failure; E11.9 Type 2 diabetes mellitus without complications; E78.5 Hyperlipidemia, unspecified; R93.1 Abnormal findings on diagnostic imaging of heart and coronary circulation; R06.00 Dyspnea, unspecified; Z79.85 Long-term (current) use of injectable non-insulin antidiabetic drugs; Z79.84 Long term (current) use of oral hypoglycemic drugs; Z79.899 Other long term (current) drug therapy
CPT/HCPCS: 80048; 85025; 93458; 99152; C1725; C1769; J1200; J1644; J2250; J3010; Q9967

== ENCOUNTER 2024-08-05 08:58 | Outpatient (POV) | payer MEDICARE, SELFPAY ==
--- NOTE | 2024-08-05 09:17 | A.OFFVIS_ITS ---
[facility] Disclaimer: The information contained in this section may have been updated after the patient was seen, as this information can be updated by other users. Medical History Abnormal findings on diagnostic imaging of heart and coronary circulation Major depressive disorder Migraine headache Chronic pain Dyspnea Bilateral hearing loss Bilateral tinnitus Hearing loss Asthma Allergic rhinitis Sleep disorder breathing Seasonal allergies Chronic cough Asthma exacerbation Mild persistent asthma Noise-induced hearing loss of both ears Tinnitus of right ear Tinnitus of left ear Abnormal stress test Obesity 29 pound weight loss since October, taking Ozempic Encounter for pre-operative cardiovascular clearance Chest pain Dyspnea Sinus tachycardia Abnormal electrocardiography Swelling of left lower extremity Preoperative clearance Dyspnea Chest pain HHD (hypertensive heart disease) Surgical History History of tubal ligation X2 -had this done; and 3 years later got -and had this done again History of cholecystectomy History of hysterectomy History of heart artery stent History of cardiac cath History of arthroscopic knee surgery Family History Other Coronary artery disease Diabetes Hyperlipidemia Hypertension No significant family history Thyroid disorder Social History Smoking Status: Former smoker second hand exposure: No alcohol intake: never counseling given: No substance use type: denies use counseling given: No current occupational status: other Travel in the last 8 weeks: None adopted: No caregiver/support person: No foster care: No household members: family housing: house lives independently: No marital status: number of children: 2 number of grandchildren: 4 education level: college current occupational exposures/hazards: No Hx Recent Travel: No sexually active: No caffeine: Yes physical activity: none abelardo/roman catholic: None special abelardo needs: No working smoke detector in home: Yes fire extinguisher in home: No carbon monox detector in home: No firearms in home: No do you feel safe at home: Yes victim of physical abuse: No victim of emotional abuse: No victim of sexual abuse: No would you like helpful sources: No PM Subjective & Objective Subjective Subjective:: Patient is a pleasant 63-year-old female who presents today for worsening pain. Today she rates her pain an 8 out of 10. Patient states she is still having chronic pain there at her mid back and her neck. She does state that the mid back is worse and describes it as an aching, throbbing sensation with numbness and tingling that does radiate. Patient has been getting epidurals that have provided significant improvement and she does state today that she would like to see about repeating this. Patient has continued conservative therapy including at home stretching exercise for longer than 12 weeks in between injections. Patient is currently managed with baclofen 10 mg 3 times a day from our office. She denies any side effects. Her Amador has been reviewed and is appropriate. Injections: 06/02/2024-TESI T11-T12 01/28/2024 lumbar RFA bilaterally L4-L5 and L5-S1 12/24/2023 lumbar medial branch block 11/19/2023 lumbar medial branch block 09/15/2021 trigger point injections 08/11/2021 left shoulder intra-articular injection 05/26/2021 cervical epidural steroid injection 01/06/2021 cervical epidural steroid injection 10/14/2020 lumbar epidural steroid injection Review of Systems: General: No recent weight changes, no fever, no sleep disturbances Respiratory: No cough, no shortness of air, no recurring pulmonary infections Cardiovascular/peripheral vascular: No chest pain, no palpitations, no edema, no shortness of breath Gastrointestinal: No new onset incontinence, normal bowel movements reported Genitourinary: No new onset incontinence Musculoskeletal: Mid back pain Psychiatric: [Normal mood/affect] Neurological: [Denies weakness in extremities], [denies balance issues] Pain at rest (0-10 scale): 8 Objective Objective:: Physical Exam: General: Alert and oriented x3, no acute distress, pleasant and cooperative Lungs: Respirations even and unlabored, symmetrical chest expansion Eyes: PERRL Musculoskeletal: Flexion and extension of thoracic [spine] somewhat guarded secondary to pain, [antalgic gait noted] Neurological: Speech clear, no gross sensory deficit Has patient had previous pain injection?: No Conservative treatment options previously tried: Home exercise plan Length of treatment: Longer than 12 weeks Meds Home Medications and Allergies Home Medications ?Medication ?Instructions ?Recorded ?Confirmed ?Type cetirizine 10 mg tablet 10 mg PO DAILY Allergy symptoms 04/14/21 08/04/24 Rx #60 tabs ketotifen fumarate 0.025 % (0.035 See Rx Instructions .Route 01/14/23 08/04/24 Rx %) eye drops .COMPLEX #5 mL multivitamin (Daily Multi-Vitamin 1 tab PO DAILY #30 tabs 06/14/23 08/04/24 Rx tablet) estradiol 0.01% (0.1 mg/gram) See Rx Instructions vaginal 02/24/24 08/04/24 Rx vaginal cream .COMPLEX #42.5 grams oxybutynin chloride 10 mg 10 mg PO DAILY #90 tabs 02/24/24 08/04/24 Rx tablet,extended release 24 hr trimethoprim 100 mg tablet 100 mg PO HS #30 tabs 02/24/24 08/04/24 Rx metformin 1,000 mg tablet See Rx Instructions .Route 03/19/24 08/04/24 Rx .COMPLEX #180 tabs lisinopril 2.5 mg tablet See Rx Instructions .Route 05/18/24 08/04/24 Rx .COMPLEX #90 tabs ergocalciferol (vitamin D2) 1,250 See Rx Instructions .Route 05/19/24 08/04/24 Rx mcg (50,000 unit) capsule (Vitamin .COMPLEX #14 caps D2) omeprazole 20 mg capsule,delayed See Rx Instructions .Route 06/03/24 08/04/24 Rx release .COMPLEX #90 caps potassium chloride 20 mEq See Rx Instructions .Route 06/04/24 08/04/24 Rx tablet,extended release(part/cryst) .COMPLEX #90 tabs nystatin 100,000 unit/gram topical See Rx Instructions .Route 06/08/24 08/04/24 Rx powder ([facility]) .COMPLEX #60 grams alendronate 70 mg tablet See Rx Instructions .Route 06/13/24 08/04/24 Rx .COMPLEX #14 tabs clopidogrel 75 mg tablet 75 mg PO DAILY Blood thinner #90 06/16/24 08/04/24 Rx tabs hydroxyzine pamoate 25 mg capsule 25 mg PO HS SLEEP #90 caps 06/23/24 08/04/24 Rx montelukast 10 mg tablet See Rx Instructions .Route 06/23/24 08/04/24 Rx .COMPLEX #90 tabs baclofen 10 mg tablet 10 mg PO TID #270 tabs 06/24/24 08/04/24 Rx albuterol sulfate 90 mcg/actuation 2 inh inhalation Q6HP PRN 06/29/24 08/04/24 Rx aerosol inhaler Shortness Of Breath #8.5 grams hydrocodone 5 mg-acetaminophen 325 1 tab PO BID PRN pain #60 tabs 06/30/24 08/04/24 Rx mg tablet nitroglycerin 0.4 mg sublingual 0.4 mg sublingual Q5M PRN chest 07/01/24 08/04/24 Rx tablet pain #20 tabs ranolazine 500 mg tablet,extended 500 mg PO BID #60 tabs 07/01/24 08/04/24 Rx release,12 hr fluticasone 250 mcg-salmeterol 50 1 inh inhalation BID #60 ea 07/02/24 08/04/24 Rx mcg/dose blistr powdr for inhalation (Wixela Inhub) ipratropium 0.5 mg-albuterol 3 mg 3 ml inhalation QID PRN shortness 07/06/24 08/04/24 Rx (2.5 mg base)/3 mL nebulization of breath or wheezing #90 mL soln fluticasone propionate 50 See Rx Instructions .Route 07/09/24 08/04/24 Rx mcg/actuation nasal .COMPLEX #16 caps spray,suspension rimegepant 75 mg disintegrating 75 mg PO DAILYP PRN Migraine 07/09/24 08/04/24 Rx tablet Headache #10 tabs cariprazine 1.5 mg capsule See Rx Instructions .Route 07/13/24 08/04/24 Rx (Vraylar) .COMPLEX #30 caps cholecalciferol (vitamin D3) 25 See Rx Instructions .Route 07/13/24 08/04/24 Rx mcg (1,000 unit) tablet (Vitamin .COMPLEX #90 tabs D3) magnesium oxide 400 mg PO BID #60 tabs 07/20/24 08/04/24 Rx furosemide 80 mg tablet 80 mg PO DAILY #90 tabs 07/22/24 08/04/24 Rx fluoxetine 40 mg capsule See Rx Instructions .Route 07/24/24 08/04/24 Rx .COMPLEX #180 caps atorvastatin 80 mg tablet (Lipitor) 80 mg PO DAILY #30 tabs 07/27/24 08/04/24 Rx colestipol 1 gram tablet See Rx Instructions .Route 08/04/24 08/04/24 Rx .COMPLEX #90 tabs galcanezumab-gnlm 120 mg/mL 120 mg SQ QMONTH Migraine #1 mL 08/04/24 08/04/24 Rx subcutaneous pen injector (Emgality Pen) metoprolol succinate 25 mg 12.5 mg (1/2 x 25 mg) PO DAILY #90 08/04/24 08/04/24 Rx tablet,extended release 24 hr tabs semaglutide 2 mg/dose (8 mg/3 mL) 2 mg (0.75 mL) SQ WEEKLY #3 mL 08/04/24 08/04/24 Rx subcutaneous pen injector (Ozempic) trazodone 150 mg tablet 150 mg PO DAILY #90 tabs 08/04/24 08/04/24 Rx New Prescriptions to Start Prescriptions: Allergies Allergy/AdvReac Type Severity Reaction Status Date / Time milk AdvReac Mild Nausea Verified 08/04/24 13:07 Assessment and Plan *Assessment and plan (1) Thoracic radiculopathy: Status: Acute Category: Medical Code(s): M54.14 - Radiculopathy, thoracic region (2) Thoracic spondylitis: Status: Acute Category: Medical Code(s): M46.94 - Unspecified inflammatory spondylopathy, thoracic region (3) DDD (degenerative disc disease), thoracic: Status: Acute Category: Medical Code(s): M51.34 - Other intervertebral disc degeneration, thoracic region Plan Patient is experiencing worsening pain in her mid back with numbness and tingling radiating down. Patient did have limited range of motion of her thoracic spine. I did discuss with patient that I do believe they would benefit from a thoracic epidural steroid injection. Risk and benefits were discussed with patient and the patient would like to proceed forward with this plan of care. Patient is on Plavix written by Dr. Gonzales's office. We will reach out to this provider and confirm that she can stop this medication prior to the injection. Patient has tried and failed conservative therapy including continued at home stretching exercise for longer than 12 weeks between injections. Patient did previously have a thoracic epidural back in May that provided 75% relief and lasted longer than 2 months. We will schedule the patient for an TESI T11-T12 under fluoroscopy. Patient has been instructed to contact the clinic with any concerns before the next appointment. Dr. Schmitt has reviewed this note and agrees with this plan of care. This note was dictated using voice recognition software and make contain errors or omissions. All injections are used with Lidocaine, Bupivacaine and Depo Medrol. Occasionally urine drug screen is needed to verify patient's compliance with our office pain contract. This is ordered based off specific treatments related to chronic pain with the potential to abuse certain medications.
[2024-08-05 09:42] VITALS: BP 108/68; PULSE 70; RESP 14; O2SAT 97; BMI 24.7
== END 2024-08-05 23:59 | disposition home or self-care (01) ==
LOC: SC.PAIN 09:00
PROVIDERS: PCP Nurse Practitioner Family; Visit Provider Nurse Practitioner Family
DX: M46.94 Unspecified inflammatory spondylopathy, thoracic region (principal); M51.14 Intervertebral disc disorders with radiculopathy, thoracic region; Z87.891 Personal history of nicotine dependence; Z79.899 Other long term (current) drug therapy
CPT/HCPCS: 99212; G0463

== ENCOUNTER 2024-09-01 08:47 | Day surgery (SDC) | payer MEDICARE, SELFPAY ==
[2024-09-01 08:56] VITALS: BP 117/67; PULSE 75; RESP 16; TEMP 36.6; O2SAT 96; BMI 24.7
[2024-09-01 09:19] VITALS: BP 118/7; O2SAT 97
[2024-09-01] MEDS: methylPREDNISolone ACETATE 80MG/ML VIAL 80 MG (09:19)
[2024-09-01 09:25] VITALS: BP 118/72; PULSE 71; RESP 18; O2SAT 94
[2024-09-01 09:29] VITALS: BP 112/70; PULSE 73; RESP 16; O2SAT 96
--- NOTE | 2024-09-01 10:07 | EXP.PAIN.PRO ---
Procedure Date: 09/01/24 Time: 09:00 Anesthesiologist:: Cecil Montemayor CRNA Complications:: None Pre-procedure Diagnosis:: Degenerative disc thoracic spine. Thoracic radiculopathy. Thoracic facet arthropathy. Post-procedure Diagnosis:: Same. Indications for Procedure:: Patient pleasant 63-year-old female who comes our clinic today for T11-12 thoracic epidural steroid injection. Patient describes T-spine pain as constant, dull, aching. Patient also reports bilateral rib cage radicular symptoms. She reports responding very well to a previous thoracic epidural steroid injection same level. She rates her pain 7/10. Procedure Details:: Procedure:Thoracic epidural steroid injection under fluoroscopy Informed consent was obtained and the risks and benefits of the procedure were explained to the patient. The patient was taken to the procedure room and noninvasive monitors placed, including noninvasive blood pressure cuff and pulse oximeter. The back was viewed using C-Arm fluoroscopy and prepped using Betadine as a cleansing solution and the T11-12 interspace was palpated. Skin and subcutaneous tissues were anesthetized using lidocaine 1.5% and a 25-gauge needle. After this, an 18-gauge Touhy epidural needle was placed into the T11-12 interspace and advanced using fluoroscopic guidance and loss of resistance to air until the epidural space was encountered. After confirmation of needle placement in the epidural space, with dye, a solution containing lidocaine 1.5%, 4 mL and Depo-Medrol 80 mg were incrementally injected into the thoracic epidural space. The patient tolerated the procedure well with no complications. The patient was observed in the Pain Clinic and then discharged home neurologically intact. Plan and Disposition:: Patient was discharged without incident.
[2024-09-01 18:56] LABS: Basophils % 0.6 % (0.1-2.0); Eosinophils # 0.1 K/mm3 (0.0-0.4); Eosinophils % 0.7 % (0.1-12.0); Hematocrit 37.5 % (37.0-47.0); Lymphocytes # 1.2 K/mm3 (0.7-4.5); Lymphocytes % 16.7 % (10-50); Mean Corpuscular Hemoglobin 28.3 pg (27.0-31.2); Mean Corpuscular Volume 88.4 fl (81-99); Mean Platelet Volume 9.8 fl (7.4-10.4); Monocytes # 0.3 K/mm3 (0.1-1.0); Monocytes % 4.1 % (1.7-9.3); Neutrophils # 5.6 K/mm3 (1.8-7.8); Neutrophils % 77.6 % (37.0-80.0); Platelet Count 301 K/mm3 (142-424); Red Blood Count 4.24 M/mm3 (4.20-5.40); Red Cell Distribution Width 13.8 % (11.5-17.5); White Blood Count 7.1 K/mm3 (4.8-10.8)
[2024-09-01 20:15] LABS: Hemoglobin A1C 5.1 % (4.0-6.0); Microalbumin < 6.000 mg/L (0-16.7)
[2024-09-01 20:16] LABS: Creatinine,Urine Random 19 mg/dL (Not Estab.)
[2024-09-01 21:31] LABS: Alanine Aminotransferase 30 U/L (12-78); Albumin Level 4.1 g/dl (3.5-5.0); Alkaline Phosphatase 89 U/L (38-126); Amylase 50 U/L (30-110); Anion Gap 9.5 mEq/L (5-15); Aspartate Amino Transferase 32 U/L (14-36); Bilirubin,Total 0.7 mg/dl (0.2-1.3); Blood Urea Nitrogen 13 mg/dl (7-17); Calcium 9.1 mg/dl (8.4-10.2); Carbon Dioxide 25 mmol/L (22.0-30.0); Chloride 102 mmol/L (98-107); Chol/HDL Ratio 1.9 (1-3.5); Cholesterol 117 mg/dl (140-200); Creatinine Clearance Estimated 58 mL/min (50-200); Estimated Glomerular Filt Rate 101 ml/min (>60); GFR (African American) 123 ML/MIN (>60); Globulin 2.1 g/dL (1.3-3.2); Glucose 83 mg/dl (74-100); HDL Cholesterol 63 mg/dl (40-60); Lipase 75 U/L (23-300); Potassium 4.5 mmoL/L (3.5-5.1); Sodium 132 mmol/L (136-145); Total Protein,Serum 6.2 g/dl (6.3-8.2); Triglycerides 62 mg/dl (30-150); VLDL Cholesterol 12 mg/dL (0-40)
[2024-09-01 21:41] LABS: Direct LDL Cholesterol 33.32 mg/dL (100-129)
[2024-09-01 21:50] LABS: 25-OH Vitamin D, Total 59.2 ng/mL (30-100)
[2024-09-01 22:01] LABS: Thyroid Stimulating Hormone 1.04 uIU/mL (0.465-4.68)
[2024-09-01 23:08] LABS: Total Iron Binding Capacity 519 ug/dL (265-497)
[2024-09-01 23:15] LABS: Iron 54 ug/dL (37-170)
[2024-09-01 23:36] LABS: Ferritin 8.26 ng/ml (11.1-264)
[2024-09-01 23:48] LABS: Vitamin B12 646 pg/mL (239-931)
[2024-09-02 01:02] LABS: Folate > 20.00 ng/mL
== END 2024-09-01 09:29 | disposition home or self-care (01) ==
LOC: SC.PAINP 08:48
PROVIDERS: PCP Nurse Practitioner Family; Visit Provider Nurse Anesthetist, Certified Registered
DX: E11.9 Type 2 diabetes mellitus without complications (principal); E78.2 Mixed hyperlipidemia; M19.90 Unspecified osteoarthritis, unspecified site; E55.9 Vitamin D deficiency, unspecified; D64.9 Anemia, unspecified; M51.14 Intervertebral disc disorders with radiculopathy, thoracic region; M47.24 Other spondylosis with radiculopathy, thoracic region
CPT/HCPCS: 62321; 80053; 80061; 82043; 82150; 82306; 82570; 82607; 82728; 82746; 83036; 83540; 83550; 83690; 84443; 85025; J1010

== ENCOUNTER 2024-09-14 11:20 | Outpatient (POV) | payer MEDICARE, SELFPAY ==
[2024-09-14 11:40] VITALS: BP 106/68; PULSE 71; RESP 14; O2SAT 98; BMI 24.7
--- NOTE | 2024-09-14 12:19 | EXP.PAIN.SOA ---
[facility] Disclaimer: The information contained in this section may have been updated after the patient was seen, as this information can be updated by other users. Medical History Abnormal findings on diagnostic imaging of heart and coronary circulation Major depressive disorder Migraine headache Chronic pain Dyspnea Bilateral hearing loss Bilateral tinnitus Hearing loss Asthma Allergic rhinitis Sleep disorder breathing Seasonal allergies Chronic cough Asthma exacerbation Mild persistent asthma Noise-induced hearing loss of both ears Tinnitus of right ear Tinnitus of left ear Abnormal stress test Obesity 29 pound weight loss since October, taking Ozempic Encounter for pre-operative cardiovascular clearance Chest pain Dyspnea Sinus tachycardia Abnormal electrocardiography Swelling of left lower extremity Preoperative clearance Dyspnea Chest pain HHD (hypertensive heart disease) Surgical History History of tubal ligation X2 -had this done; and 3 years later got -and had this done again History of cholecystectomy History of hysterectomy History of heart artery stent History of cardiac cath History of arthroscopic knee surgery Family History Other Coronary artery disease Diabetes Hyperlipidemia Hypertension No significant family history Thyroid disorder Social History Smoking Status: Former smoker second hand exposure: No alcohol intake: never counseling given: No substance use type: denies use counseling given: No current occupational status: other Travel in the last 8 weeks: None adopted: No caregiver/support person: No foster care: No household members: family housing: house lives independently: No marital status: number of children: 2 number of grandchildren: 4 education level: college current occupational exposures/hazards: No Hx Recent Travel: No sexually active: No caffeine: Yes physical activity: none abelardo/lutheran: None special abelardo needs: No working smoke detector in home: Yes fire extinguisher in home: No carbon monox detector in home: No firearms in home: No do you feel safe at home: Yes victim of physical abuse: No victim of emotional abuse: No victim of sexual abuse: No would you like helpful sources: No PM Subjective & Objective Subjective Subjective:: Patient is a pleasant 63-year-old female who presents today for follow-up of thoracic epidural steroid injection T11-T12 on 09/01/2024. Today she rates her pain a 5 out of 10. She denies any new trauma or injury. She does state that she had at least 80% improvement following this injection and feels like it is still working well. Patient is also managed with baclofen 10 mg 3 times a day from our office. Her Amador has been reviewed and is appropriate. Review of Systems: General: No recent weight changes, no fever, no sleep disturbances Respiratory: No cough, no shortness of air, no recurring pulmonary infections Cardiovascular/peripheral vascular: No chest pain, no palpitations, no edema, no shortness of breath Gastrointestinal: No new onset incontinence, normal bowel movements reported Genitourinary: No new onset incontinence Musculoskeletal: Mid back pain Psychiatric: [Normal mood/affect] Neurological: [Denies weakness in extremities], [denies balance issues] Pain at rest (0-10 scale): 5 Objective Objective:: Physical Exam: General: Alert and oriented x3, no acute distress, pleasant and cooperative Lungs: Respirations even and unlabored, symmetrical chest expansion Eyes: PERRL Musculoskeletal: Flexion and extension of thoracic [spine] somewhat guarded secondary to pain, [antalgic gait noted] Neurological: Speech clear, no gross sensory deficit Has patient had previous pain injection?: Yes Percent improvement in pain since last injection: 80% Conservative treatment options previously tried: Home exercise plan Length of treatment: Longer than 12 weeks Meds Home Medications and Allergies Home Medications ?Medication ?Instructions ?Recorded ?Confirmed ?Type cetirizine 10 mg tablet 10 mg PO DAILY Allergy symptoms 04/14/21 09/14/24 Rx #60 tabs ketotifen fumarate 0.025 % (0.035 See Rx Instructions .Route 01/14/23 09/14/24 Rx %) eye drops .COMPLEX #5 mL multivitamin (Daily Multi-Vitamin 1 tab PO DAILY #30 tabs 06/14/23 09/14/24 Rx tablet) estradiol 0.01% (0.1 mg/gram) See Rx Instructions vaginal 02/24/24 09/14/24 Rx vaginal cream .COMPLEX #42.5 grams oxybutynin chloride 10 mg 10 mg PO DAILY #90 tabs 02/24/24 09/14/24 Rx tablet,extended release 24 hr trimethoprim 100 mg tablet 100 mg PO HS #30 tabs 02/24/24 09/14/24 Rx lisinopril 2.5 mg tablet See Rx Instructions .Route 12/02/24 03/31/25 Rx .COMPLEX #90 tabs nystatin 100,000 unit/gram topical See Rx Instructions .Route 06/08/24 09/14/24 Rx powder ([facility]) .COMPLEX #60 grams montelukast 10 mg tablet See Rx Instructions .Route 06/23/24 09/14/24 Rx .COMPLEX #90 tabs baclofen 10 mg tablet 10 mg PO TID #270 tabs 06/24/24 09/14/24 Rx albuterol sulfate 90 mcg/actuation 2 inh inhalation Q6HP PRN 06/29/24 09/14/24 Rx aerosol inhaler Shortness Of Breath #8.5 grams nitroglycerin 0.4 mg sublingual 0.4 mg sublingual Q5M PRN chest 07/01/24 09/14/24 Rx tablet pain #20 tabs ranolazine 500 mg tablet,extended 500 mg PO BID #60 tabs 07/01/24 09/14/24 Rx release,12 hr ipratropium 0.5 mg-albuterol 3 mg 3 ml inhalation QID PRN shortness 07/06/24 09/14/24 Rx (2.5 mg base)/3 mL nebulization of breath or wheezing #90 mL soln fluoxetine 40 mg capsule See Rx Instructions .Route 07/24/24 09/14/24 Rx .COMPLEX #180 caps atorvastatin 80 mg tablet (Lipitor) 80 mg PO DAILY #30 tabs 07/27/24 09/14/24 Rx colestipol 1 gram tablet See Rx Instructions .Route 08/04/24 09/14/24 Rx .COMPLEX #90 tabs metoprolol succinate 25 mg 12.5 mg (1/2 x 25 mg) PO DAILY #90 08/04/24 09/14/24 Rx tablet,extended release 24 hr tabs trazodone 150 mg tablet 150 mg PO DAILY #90 tabs 08/04/24 09/14/24 Rx cariprazine 1.5 mg capsule See Rx Instructions .Route 08/10/24 09/14/24 Rx (Vraylar) .COMPLEX #30 caps fluticasone propionate 50 See Rx Instructions .Route 08/10/24 09/14/24 Rx mcg/actuation nasal .COMPLEX #16 caps spray,suspension rimegepant 75 mg disintegrating 75 mg PO DAILYP PRN Migraine 08/13/24 09/14/24 Rx tablet Headache #10 tabs metformin 1,000 mg tablet See Rx Instructions .Route 08/16/24 09/14/24 Rx .COMPLEX #180 tabs potassium chloride 20 mEq See Rx Instructions .Route 08/16/24 09/14/24 Rx tablet,extended release(part/cryst) .COMPLEX #90 tabs magnesium oxide 400 mg PO BID #60 tabs 08/20/24 09/14/24 Rx omeprazole 20 mg capsule,delayed See Rx Instructions .Route 08/26/24 09/14/24 Rx release .COMPLEX #90 caps ergocalciferol (vitamin D2) 1,250 See Rx Instructions .Route 08/27/24 09/14/24 Rx mcg (50,000 unit) capsule (Vitamin .COMPLEX #14 caps D2) semaglutide 2 mg/dose (8 mg/3 mL) 2 mg (0.75 mL) SQ WEEKLY #3 mL 08/31/24 09/14/24 Rx subcutaneous pen injector (Ozempic) alendronate 70 mg tablet See Rx Instructions .Route 09/04/24 09/14/24 Rx .COMPLEX #14 tabs hydrocodone 5 mg-acetaminophen 325 1 tab PO BID PRN pain #60 tabs 09/04/24 09/14/24 Rx mg tablet furosemide 80 mg tablet 80 mg PO DAILY #90 tabs 09/08/24 09/14/24 Rx fluticasone 250 mcg-salmeterol 50 1 inh inhalation BID #60 ea 09/09/24 09/14/24 Rx mcg/dose blistr powdr for inhalation (Wixela Inhub) clopidogrel 75 mg tablet 75 mg PO DAILY Blood thinner #90 09/10/24 09/14/24 Rx tabs hydroxyzine pamoate 25 mg capsule 25 mg PO HS SLEEP #90 caps 09/10/24 09/14/24 Rx galcanezumab-gnlm 120 mg/mL 120 mg SQ QMONTH Migraine #1 mL 09/14/24 09/14/24 Rx subcutaneous pen injector (Emgality Pen) New Prescriptions to Start Prescriptions: Allergies Allergy/AdvReac Type Severity Reaction Status Date / Time milk AdvReac Mild Nausea Verified 09/01/24 14:59 Assessment and Plan *Assessment and plan (1) Thoracic radiculopathy: Status: Acute Category: Medical Code(s): M54.14 - Radiculopathy, thoracic region (2) Thoracic spondylitis: Status: Acute Category: Medical Code(s): M46.94 - Unspecified inflammatory spondylopathy, thoracic region Plan Patient has had significant improvement following her thoracic epidural and does not require any additional injection therapy interventions at this time. I will make sure she has refills on her baclofen. Her Amador has been reviewed and is appropriate. Patient has been instructed to contact the clinic with any concerns before the next appointment. Dr. Schmitt has reviewed this note and agrees with this plan of care. This note was dictated using voice recognition software and make contain errors or omissions. All injections are used with Lidocaine, Bupivacaine and Depo Medrol. Occasionally urine drug screen is needed to verify patient's compliance with our office pain contract. This is ordered based off specific treatments related to chronic pain with the potential to abuse certain medications.
== END 2024-09-14 23:59 | disposition home or self-care (01) ==
PROVIDERS: PCP Nurse Practitioner Family; Visit Provider Nurse Practitioner Family
DX: M54.14 Radiculopathy, thoracic region (principal); M46.94 Unspecified inflammatory spondylopathy, thoracic region; Z79.899 Other long term (current) drug therapy
CPT/HCPCS: 99212; G0463

== ENCOUNTER 2024-10-26 11:15 | Outpatient (POV) | payer MEDICARE, SELFPAY ==
--- OUTSIDE RECORDS SUMMARY | 2024-10-26 11:17 | XMS_ITS | Data Portability ---
Author Organization [facility] SELMA Martinez [place] CLOSED Address [address] [place] [address] Assessment No assessment recorded. Plan of Treatment Reminders Order Date Submit Date Provider Last Modified By Organization Details Last Modified Time Details Appointments None record ed. Lab None record ed. Referral None record ed. Procedures None record ed. Surgeries None record ed. Imaging None record ed. Medication Orders None record ed. Patient TargetsNo targets recorded. Patient InstructionsNo instructions recorded. Reason for Referral None Reported. Results Created Date Observation Date Name Description Value Unit Range Abnormal Flag Note LastModifiedBy Organization Detail LastModifiedTime 04/16/20 22 04/16/2022 audio gram No observ ation record ed. [facility] Not Available 2021 12:08:44 Result Notes None recorded. Procedures Surgical History Date Name Laterality Status Provider Name and Address Organization Details Recorded Time 04/16/2022 Audiogram completed GONZALO ASTUDILLO [address] [place], [address], [facility] 04/16/2022 10:34:33 Imaging Results Imaging Date Name Status LastModified by Organiz ation Details LastModified Time 04/16/2022 audiogram completed [facility] Information no t available 04/16/2022 12:08:44 Procedure Notes None recorded. Medical Equipment None Reported. Vitals None Recorded Social History None recorded. Functional Status None recorded. Mental Status None recorded. Family History Nothing Reported. Medical History No medical history recorded. Gynecological HistoryNo gynecological history recorded. Obstetrics History GPAL:G 0 P 0 0 0 0 Past Encounters Encounter ID Performer Location Encounter Start Date Encounter Closed Date Diagnosis/Indication Diagnosis SNOMED-CT Code Diagnosis ICD10 Code Diagnosis Note [id number] GONZALO ASTUDILLO [place] [facility] [address] [id number] 04/16/2022 09:56:34 04/16/2022 10:55:04 Sensorineural hearing loss of bilateral ears [id number] H90.3 Bilateral tinnitus [id number] [id number] H93.13 Health Concerns Section Related Observation LastModified by Organization Detai ls LastModified Time None Recorded Concern Status LastModified by Organization Details LastModified Time None Recorded Advance Directives Directive None Recorded Payers Insurance Date Sequence Insurance Name Policy Number Policy Fitzgerald Covered Member ID Fitzgerald Member ID Guarantor Name 04/16/2022 1 [employer] (MEDICARE REPLACEMENT/A DVANTAGE - PPO) Parul Leone [id number] Parul Leone OBGyn Episode No OBEpisode recorded.
--- OUTSIDE RECORDS SUMMARY | 2024-10-26 11:17 | XMS_ITS ---
Author Organization Unknown TREATMENT PLAN [facility] Start Date Provider Encounter for Check-up [id number] [facility]
[2024-10-26 11:39] VITALS: BP 107/63; PULSE 74; RESP 18; O2SAT 95; BMI 23.9
--- NOTE | 2024-10-26 11:41 | EXP.PAIN.SOA ---
[facility] Disclaimer: The information contained in this section may have been updated after the patient was seen, as this information can be updated by other users. Medical History Dyspnea on exertion Abnormal findings on diagnostic imaging of heart and coronary circulation Major depressive disorder Migraine headache Chronic pain Dyspnea Bilateral hearing loss Bilateral tinnitus Hearing loss Asthma Allergic rhinitis Sleep disorder breathing Seasonal allergies Chronic cough Asthma exacerbation Mild persistent asthma Noise-induced hearing loss of both ears Tinnitus of right ear Tinnitus of left ear Abnormal stress test Obesity 29 pound weight loss since October, taking Ozempic Encounter for pre-operative cardiovascular clearance Chest pain Dyspnea Sinus tachycardia Abnormal electrocardiography Swelling of left lower extremity Preoperative clearance Dyspnea Chest pain HHD (hypertensive heart disease) Surgical History History of tubal ligation X2 -had this done; and 3 years later got -and had this done again History of cholecystectomy History of hysterectomy History of heart artery stent History of cardiac cath History of arthroscopic knee surgery Family History Other Coronary artery disease Diabetes Hyperlipidemia Hypertension No significant family history Thyroid disorder Social History Smoking Status: Former smoker second hand exposure: No alcohol intake: never counseling given: No substance use type: denies use counseling given: No current occupational status: other Travel in the last 8 weeks?: None adopted: No caregiver/support person: No foster care: No household members: family housing: house lives independently: No marital status: number of children: 2 number of grandchildren: 4 education level: college current occupational exposures/hazards: No Hx Recent Travel: No sexually active: No caffeine: Yes physical activity: none abelardo/holiness: None special abelardo needs: No working smoke detector in home: Yes fire extinguisher in home: No carbon monox detector in home: No firearms in home: No do you feel safe at home: Yes victim of physical abuse: No victim of emotional abuse: No victim of sexual abuse: No would you like helpful sources: No PM Subjective & Objective Subjective Subjective:: Patient is a pleasant 63-year-old female who presents today for worsening neck pain. Today she rates her pain an 8 out of 10. She denies any new falls or injuries. Patient just feels like her neck is gotten much more aggravated more so over the last month. Patient states it is constant and is interfering with her ability perform activities of daily living such as cooking and cleaning. Patient does state that she has very limited movements looking [id number] or up and down. Patient denies any radiating numbness or tingling into her arms or hands. Patient does also make mention that she feels like she has had a lot more headaches or migraines since having the increased neck pain. Patient is interested in additional injection therapy. Patient is prescribed baclofen 10 mg 3 times a day from our office and compounded cream. Patient does state that she does not have any more of the topical. Her Amador has been reviewed and is appropriate. Review of Systems: General: No recent weight changes, no fever, no sleep disturbances Respiratory: No cough, no shortness of air, no recurring pulmonary infections Cardiovascular/peripheral vascular: No chest pain, no palpitations, no edema, no shortness of breath Gastrointestinal: No new onset incontinence, normal bowel movements reported Genitourinary: No new onset incontinence Musculoskeletal: Neck pain Psychiatric: [Normal mood/affect] Neurological: [Denies weakness in extremities], [denies balance issues] Pain at rest (0-10 scale): 8 Objective Objective:: Physical Exam: General: Alert and oriented x3, no acute distress, pleasant and cooperative Lungs: Respirations even and unlabored, symmetrical chest expansion Eyes: PERRL Musculoskeletal: Flexion and extension of cervical [spine] somewhat guarded secondary to pain, [antalgic gait noted] positive Kemps test Neurological: Speech clear, no gross sensory deficit Has patient had previous pain injection?: No Conservative treatment options previously tried: Home exercise plan Length of treatment: Longer than 12 weeks Meds Home Medications and Allergies Home Medications ?Medication ?Instructions ?Recorded ?Confirmed ?Type cetirizine 10 mg tablet 10 mg PO DAILY Allergy symptoms 04/14/21 10/13/24 Rx #60 tabs ketotifen fumarate 0.025 % (0.035 See Rx Instructions .Route 01/14/23 10/13/24 Rx %) eye drops .COMPLEX #5 mL estradiol 0.01% (0.1 mg/gram) See Rx Instructions vaginal 02/24/24 10/13/24 Rx vaginal cream .COMPLEX #42.5 grams oxybutynin chloride 10 mg 10 mg PO DAILY #90 tabs 02/24/24 10/13/24 Rx tablet,extended release 24 hr lisinopril 2.5 mg tablet See Rx Instructions .Route 05/18/24 10/13/24 Rx .COMPLEX #90 tabs nystatin 100,000 unit/gram topical See Rx Instructions .Route 06/08/24 10/13/24 Rx powder (Nyamyc) .COMPLEX #60 grams nitroglycerin 0.4 mg sublingual 0.4 mg sublingual Q5M PRN chest 07/01/24 10/13/24 Rx tablet pain #20 tabs ipratropium 0.5 mg-albuterol 3 mg 3 ml inhalation QID PRN shortness 07/06/24 10/13/24 Rx (2.5 mg base)/3 mL nebulization of breath or wheezing #90 mL soln atorvastatin 80 mg tablet (Lipitor) 80 mg PO DAILY #30 tabs 07/27/24 10/13/24 Rx colestipol 1 gram tablet See Rx Instructions .Route 08/04/24 10/13/24 Rx .COMPLEX #90 tabs cariprazine 1.5 mg capsule See Rx Instructions .Route 08/10/24 10/13/24 Rx (Vraylar) .COMPLEX #30 caps metformin 1,000 mg tablet See Rx Instructions .Route 08/16/24 10/13/24 Rx .COMPLEX #180 tabs potassium chloride 20 mEq See Rx Instructions .Route 08/16/24 10/13/24 Rx tablet,extended release(part/cryst) .COMPLEX #90 tabs ergocalciferol (vitamin D2) 1,250 See Rx Instructions .Route 08/27/24 10/13/24 Rx mcg (50,000 unit) capsule (Vitamin .COMPLEX #14 caps D2) alendronate 70 mg tablet See Rx Instructions .Route 09/04/24 10/13/24 Rx .COMPLEX #14 tabs furosemide 80 mg tablet 80 mg PO DAILY #90 tabs 09/08/24 10/13/24 Rx clopidogrel 75 mg tablet 75 mg PO DAILY Blood thinner #90 09/10/24 10/13/24 Rx tabs hydroxyzine pamoate 25 mg capsule 25 mg PO HS SLEEP #90 caps 09/10/24 10/13/24 Rx baclofen 10 mg tablet 10 mg PO TID #270 tabs 09/14/24 10/13/24 Rx ferrous sulfate 325 mg (65 mg 325 mg PO DAILY #30 tabs 09/15/24 10/13/24 Rx iron) tablet fluticasone propionate 50 See Rx Instructions .Route 09/23/24 10/13/24 Rx mcg/actuation nasal .COMPLEX #16 caps spray,suspension semaglutide 2 mg/dose (8 mg/3 mL) 2 mg (0.75 mL) SQ WEEKLY #3 mL 09/29/24 10/13/24 Rx subcutaneous pen injector (Ozempic) hydrocodone 5 mg-acetaminophen 325 1 tab PO BID PRN pain #60 tabs 10/05/24 10/13/24 Rx mg tablet ranolazine 500 mg tablet,extended 500 mg PO BID #60 tabs 10/05/24 10/13/24 Rx release,12 hr omeprazole 40 mg capsule,delayed 40 mg PO DAILY #30 caps 10/16/24 Rx release trazodone 150 mg tablet 150 mg PO DAILY #90 tabs 10/16/24 Rx albuterol sulfate 90 mcg/actuation 2 inh inhalation Q6HP PRN 10/19/24 Rx aerosol inhaler Shortness Of Breath #8.5 grams magnesium oxide 400 mg PO BID #60 tabs 10/19/24 Rx metoprolol succinate 25 mg 12.5 mg (1/2 x 25 mg) PO DAILY #90 10/19/24 Rx tablet,extended release 24 hr tabs rimegepant 75 mg disintegrating 75 mg PO DAILYP PRN Migraine 10/19/24 Rx tablet Headache #10 tabs fluticasone 500 mcg-salmeterol 50 1 inh inhalation BID 90 days #180 10/20/24 Rx mcg/dose blistr powdr for ea inhalation montelukast 10 mg tablet See Rx Instructions .Route 10/20/24 Rx .COMPLEX #90 tabs ropinirole 1 mg tablet 1 mg PO DAILY #60 tabs 10/20/24 Rx fluoxetine 40 mg capsule See Rx Instructions .Route 10/26/24 Rx .COMPLEX #180 caps galcanezumab-gnlm 120 mg/mL 120 mg SQ QMONTH Migraine #1 mL 10/26/24 Rx subcutaneous pen injector (Emgality Pen) New Prescriptions to Start Prescriptions: Allergies Allergy/AdvReac Type Severity Reaction Status Date / Time milk AdvReac Mild Nausea Verified 10/13/24 16:06 Assessment and Plan *Assessment and plan (1) Neck pain: Status: Acute Category: Medical Code(s): M54.2 - Cervicalgia (2) Cervical spondylosis: Status: Acute Category: Medical Code(s): M47.812 - Spondylosis without myelopathy or radiculopathy, cervical region Plan Patient is experiencing significant pain in her neck that is worse with bending, twisting or lifting. Patient does state that it does interfere with her ability perform activities of daily living such as cooking and cleaning. Patient did have limited range of motion of her cervical spine with a positive Kemps test during today's visit. I did discuss with the patient that I do believe she would benefit from a cervical medial branch block. Risk and benefits were discussed with the patient and she would like to proceed forward with this plan of care. Patient has tried and failed conservative therapy including oral medications, heat and ice, topicals, at home stretching exercise for longer than 12 weeks. Patient has been experiencing chronic neck pain for years. And did have imaging in 2021 that did show multilevel cervical spondylosis. Patient was counseled that if she does get significant relief with her first cervical medial branch block that we will plan on repeating it with the plan to progress forward to a cervical RFA at a later date. Patient agrees with this plan of care. Patient will be scheduled for her first diagnostic cervical medial branch block bilaterally C4-C5 and C5-C6 under fluoroscopy. I will make sure that she does have refills on her compounded cream. Patient has been instructed to contact the clinic with any concerns before the next appointment. Dr. Schmitt has reviewed this note and agrees with this plan of care. This note was dictated using voice recognition software and make contain errors or omissions. All injections are used with Lidocaine, Bupivacaine and Depo Medrol. Occasionally urine drug screen is needed to verify patient's compliance with our office pain contract. This is ordered based off specific treatments related to chronic pain with the potential to abuse certain medications.
== END 2024-10-26 23:59 | disposition home or self-care (01) ==
PROVIDERS: PCP Nurse Practitioner Family; Visit Provider Nurse Practitioner Family
DX: M54.2 Cervicalgia (principal); M47.812 Spondylosis without myelopathy or radiculopathy, cervical region; Z73.89 Other problems related to life management difficulty; Z79.899 Other long term (current) drug therapy
CPT/HCPCS: 99212; G0463

== ENCOUNTER 2024-11-24 11:01 | Day surgery (SDC) | payer MEDICARE, SELFPAY ==
[2024-11-24 11:13] VITALS: BP 103/71; PULSE 77; RESP 16; TEMP 36.7; O2SAT 94; BMI 22.3
[2024-11-24] MEDS: LIDOCAINE 1% 5ML PF VIAL 5 ML (11:35)
[2024-11-24] MEDS: IOPAMIDOL-200 (41%);10ML VIAL 10 ML IV (11:35)
[2024-11-24] MEDS: BUPIVACAINE 0.25% 10ML INJ 25 MG IJ (11:35)
[2024-11-24 11:36] VITALS: BP 113/79; PULSE 80; RESP 18; O2SAT 95
[2024-11-24] MEDS: DEXAMETHASONE 10MG/ML 1ML VIAL 10 MG (11:36)
[2024-11-24 11:37] VITALS: BP 113/79; PULSE 80; RESP 18; O2SAT 95
--- NOTE | 2024-11-24 11:38 | P.PCN_ITS ---
Procedure Date: 11/24/24 Time: 11:30 Anesthesiologist:: Cecil Montemayor CRNA Complications:: None Pre-procedure Diagnosis:: Degenerative disc cervical spine multilevels. Cervical radiculopathy. Cervical spondylosis. Multilevel cervical facet arthropathy. Post-procedure Diagnosis:: Same. Indications for Procedure:: Patient is a very pleasant 63-year-old female who comes our clinic today for ROUND TWO of cervical medial branch blocks/facet injections at the bilateral cervical C5-6, C6-7 level. She describes posterior cervical neck pain as constant, dull, aching. She reports responding very well to previous medial branch blocks/facet injections at the same level. She rates her pain today /10. Procedure Details:: Informed consent was obtained and the risk and benefits of the procedure was explained to the patient. Patient was taken to the procedure room where noninvasive monitors were placed, including noninvasive blood pressure cuff as well as pulse oximeter. The area over the posterior cervical spine was cleansed using chlorhexidine as a cleansing solution. I anesthetized the skin and subcutaneous tissues with 1% Lidocaine. I placed 25 -gauge spinal needles into the facet joint/ medial branches of C5-6, C6-7 bilaterally. Needle placement was confirmed with fluoroscopy. After confirmation of needle placement, each site was injected with 1 mL of 1% lidocaine and 0.25 % Marcaine and 10 mg of Depo- Medrol. A total of 20 mg of depo medrol was used for bilateral medial branch blocks of C5-6, C6-7 bilaterally. Patient tolerated the procedure without difficulty. There were no complications. Plan and Disposition:: Patient was discharged without incident.
[2024-11-24 11:39] VITALS: BP 124/76; PULSE 83; RESP 16; O2SAT 95
== END 2024-11-24 11:39 | disposition home or self-care (01) ==
PROVIDERS: PCP Nurse Practitioner Family; Visit Provider Nurse Anesthetist, Certified Registered
DX: M50.122 Cervical disc disorder at C5-C6 level with radiculopathy (principal); M47.22 Other spondylosis with radiculopathy, cervical region; J45.909 Unspecified asthma, uncomplicated; J45.30 Mild persistent asthma, uncomplicated; E66.9 Obesity, unspecified; I11.9 Hypertensive heart disease without heart failure; R00.0 Tachycardia, unspecified; Z82.41 Family history of sudden cardiac death; Z87.891 Personal history of nicotine dependence; Z79.899 Other long term (current) drug therapy; Z79.84 Long term (current) use of oral hypoglycemic drugs; Z79.85 Long-term (current) use of injectable non-insulin antidiabetic drugs; Z91.011 Allergy to milk products
CPT/HCPCS: 64479; 64480; J0665; J1100; J2003; Q9966

== ENCOUNTER 2024-12-15 11:31 | Outpatient (POV) | payer MEDICARE, SELFPAY ==
--- OUTSIDE RECORDS SUMMARY | 2024-12-15 11:33 | XMS_ITS | Data Portability ---
Author Organization [facility] SELMA Martinez [facility] Address [address] [place] [address] Assessment No assessment recorded. Plan of Treatment [...] Time 04/16/2022 Audiogram completed GONZALO ASTUDILLO [address] [place], [address], [facility] 04/16/2022 10:34:33 Imaging Results None recorded. Procedure Notes None recorded. Medical Equipment None [...] SNOMED-CT Code Diagnosis ICD10 Code Diagnosis Note [id number] GONZALO ASTUDILLO [place] [facility] [address] [address] 04/16/2022 09:56:34 04/16/2022 10:55:04 Sensorineural hearing loss of bilateral ears [id number] H90.3 Bilateral tinnitus [id number] H93.13 Health Concerns Section Related Observation LastModified by Organization Detai ls LastModified Time None Recorded Concern Status LastModified by Organization Details LastModified Time None Recorded Advance Directives Directive None Recorded Payers Insurance Date Sequence Insurance Name Policy Number Policy Fitzgerald Covered Member ID Fitzgerald Member ID Guarantor Name 04/16/2022 1 [employer] (MEDICARE REPLACEMENT/A DVANTAGE - PPO) Parul Leone [id number] Parul Leone OBGyn Episode No OBEpisode recorded.
--- OUTSIDE RECORDS SUMMARY | 2024-12-15 11:33 | XMS_ITS | Data Portability ---
Author Organization [facility] Address [address] [facility] [address] [place] [address] Assessment Encounter Date Assessment Date Assessment LastModified by Organization Details LastModified Time 11/21/2022 11/21/2022 Ms. Leone is an morbidly obese 61-year-old female we see with improvement in radicular symptoms and some extent her neck pain after cervical epidural steroid injection. This was completed on 09/26/2021 not quite 2 months ago. She initially report about 80% improvement but now is reporting about 50% improvement at this time. She continues to have some mechanical neck pain and decreased range of motion. She reports subjective popping and cracking in the neck. She reports right neck is worse than the left. Imaging has demonstrated facet arthropathy in the past. We have discussed medial branch block with progression RFA for which she is agreeable. She is on a regimen of tramadol, hydrocodone and gabapentin I believe 1200 mg 3 times daily by other providers. This office does not provide any medication for this patient. Anticoagulants: Plavix for stent PMHx: CAD status post stent, hypertension, hyperlipidemia, diabetes on metformin INJ Hx: 09/26/2022 (Thera) RICHI C7/T1; 80% pain relief for 1 month; 50% pain relief ongoing 05/25/2022 (Thera) RICHI C7/T1; 100% pain relief 02/16/2022 #2 RICHI C7/T1; 100% pain 01/19/2022 #1 RICHI C7/T1; 95% pain relief Trigger point injections with Dr. Schmitt, not beneficial, lumbar epidural steroid injection in the past that was not beneficial PSHx/Surgical Evaluation: None IMAGING: MRI cervical spine personally reviewed by myself today, images uploaded in chart, 06/2021 C3-C4 disc bulge with mild CCS C4-C5 disc bulge with moderate CCS C5-C6 disc bulge with mild to moderate CCS C6-C7 disc bulge with mild to moderate CCS C7-T1 patent canal There is mild facet arthropathy at all levels. The above image findings were discussed with the patient. Current medications include hydrocodone, tramadol, gabapentin. The patient feels that they receive adequate analgesia and activity improvement with the medication. The patient denies side effects from the medications. UDS on 12/13/2021 was appropriate and was not sent for confirmation testing to verify compliance and establish a baseline. The patient was advised that the purpose of this urine drug screen is to monitor for compliance and to assist in risk stratification. The results of this preliminary screening test was discussed with the patient. ORT score is 1 and PHQ-9 demonstrates mod depression. NARDA was reviewed and is 50 today. TERELL report was reviewed today. Based upon the above I would consider the patient to be Low risk. NARDA= already 2% PT Not beneficial in the past for neck pain Plan: Ms. Leone is a morbidly obese 61-year-old female with improvement in her neck pain and radicular symptoms after a therapeutic C7-T1 cervical epidural steroid injection. She continues to have mechanical neck pain more so right than left. We have discussed a right C3-5 medial branch block with progression RFA if beneficial for which she is in agreement. All the risk and benefits of been discussed at length. All of her questions been answered. We will make arrangements for this in near future without sedation. No medications were provided today. Much of this encounter is an electronic photo engraver/tr anslation of spoken language to printed text. The electronic translation of spoken language may permit erroneous or at times nonsensical words of phrases to be inadvertently transcribed; Although I have reviewed the note for such errors, some may still exist. [email or web address] Not available 11/21/2022 14:08:04 04/17/2023 04/17/2023 Care management services and General Behavioral Health Integration (CPT 81207) was provided for at least 20 minutes of clinical time, directed by a physician or other qualified healthcare provider in accordance with state regulation. Services included systematic assessment and monitoring, using applicable validated clinical rating scales, facilitation and coordination of behavioral health treatment, and continuous relationship with the care team. Patient has been provided a HIPAA-compliant software platform which the care team can access to monitor and care for the patient. This platform provides mindfulness activities, patient education materials pertaining to the patient s psychosocial status and diagnosis, along with crisis resource information. Validated clinical rating scales will be repeated monthly to reassess presence or absence of daily dysfunction and emotional stress that may be related to physical health conditions, social or environmental factors. These assessments will guide us to provide a better pain management treatment. Care plans will continue to be updated monthly in accordance to changes in behavioral and physical health status. Medications will be closely monitored and adjusted according to validated rating scales and subjective data provided by patient (mood and sleep). Complete subjective and objective patient data is available in the patient records. Patient completed FAMILIA-7 with scoring below threshold for clinically necessary intervention (score less than 6). Patient completed PHQ-9 on 04/17/2023 with scoring of 7 , indicating mild depression. No suicidal ideation was endorsed. Patient answered no to all questions related to self-harm. Through the [employer] platform, the patient was assigned the Reoccurring Assessment activity template, which includes informational videos, journals, and FAMILIA-2 / FAMILIA-7, PHQ-9*, PDUQp, Oswestry - Lower Back, ORT-OUD. . Patient was not contacted by our clinical support team but provided resources through the [employer] platform. The patient s next visit is on 05/02/2023 . [email or web address] Not available 04/17/2023 19:08:04 Plan of Treatment Reminders Order Date Submit Date Provider Last Modified By Organization Details Last Modified Time Details Appointments None recorded. Lab None recorded. Referral None recorded. Procedures cervical radiofreque ncy ablation (PROC) - RFA Cervical Right C3-C5 W/sed rené jono 2022 023 [email or web address] Not available 3 09:29:25 medial branch block, cervical (PROC) 2022 023 [email or web address] Not available 3 08:56:10 Surgeries None recorded. Imaging None recorded. Medication Orders None recorded. Patient TargetsNo targets recorded. Patient InstructionsNo instructions recorded. Reason for Referral None Reported. Problems Name Problem SNOMED Code Status Onset Date Resolution Date Notes Provider Name and Address Organization Details Recorded Time Cervical radiculiti s 92216883 Active 2021 LEYDI SALEH MD [address] [place] [address], [phone] , [facility] - [facility] 2 15:36:26 Cervical spondylosi s without myelopathy 734727949 Active 2021 LEYDI SALEH MD [address] [place] [address], [phone] , [place] - [facility] 2 15:36:27 Cervical radiculopa thy 68157878 Active 2021 Michelle Kenny null, [place] - [facility] 2 13:22:00 Overweight 447092736 Active 2022 nikia jacksno null, [place] - [facility] 3 07:44:35 Pain disorder with psychologi bruna factor 260803848328 Active 2022 Judah Canada null, [place] - [facility] 3 19:07:36 Problem Notes None recorded. Procedures Surgical History Date Name Laterality Status Provider Name and Address Organization Details Recorded Time 03/14/20 23 Cervical RFA: Posterior (2 Level Unilateral) completed Michelle Provo [place] [facility] 03/14/2023 15:39:04 02/01/20 23 Diagnostic Cervical MBB: Posterior (2 Level Unilateral) completed Michelle Kenny [place] - [facility] 01/31/2023 14:43:49 12/11/19 23 Diagnostic Cervical MBB: Posterior (2 Level Unilateral) completed LEYDI SALEH MD [address] [place] [address], [phone], [facility] - [facility] 12/10/2022 16:56:34 09/27/19 23 Cervical Epidural Steroid Injection: Interlaminar completed LEYDI SALEH MD [address] [place] [address], [phone], [facility] 09/26/2022 15:59:39 05/25/20 22 Cervical Epidural Steroid Injection: Interlaminar completed LEYDI SALEH MD [address] [place] [address], [phone], [facility] 05/25/2022 16:23:04 02/17/20 22 Cervical Epidural Steroid Injection: Interlaminar completed LEYDI SALEH MD [address] [place] [address], [phone], [facility] 02/19/2022 17:19:48 01/20/20 22 Cervical Epidural Steroid Injection: Interlaminar completed LEYDI SALEH MD [address] [place] [address], [phone], [facility] 01/19/2022 16:07:55 Imaging Results None recorded. Procedure Notes None recorded. Medical Equipment None Reported. Allergies No known drug allergies Medications Name Sig Start Date Stop Date Status Note LastModified by Organization Details LastModified Time fluoxetine 40 mg capsule active Not Available Not Available Not Available amoxicillin 500 mg capsule 02/02 completed Not Available Not Available Not Available furosemide 40 mg tablet 03/12 completed Not Available Not Available Not Available atorvastatin 40 mg tablet active Not Available Not Available No t Available fluticasone 250 mcg-salmeterol 50 mcg/dose blistr powdr for inhalation active Not Available Not Available N ot Available gabapentin 600 mg tablet active Not Available Not Available No t Available ipratropium 0.5 mg-albuterol 3 mg (2.5 mg base)/3 mL nebulization soln active Not Available Not Available Not Available clindamycin HCl 300 mg capsule 03/12 completed Not Available Not Available Not Available trazodone 50 mg tablet active Not Available Not Available Not Available fluconazole 150 mg tablet active Not Available Not Available No t Available metoprolol succinate ER 50 mg tablet,extended release 24 hr active Not Available Not Availabl e Not Available ketotifen 0.025 % (0.035 %) eye drops active Not Available Not Available Not Available hydrocodone 5 mg-acetaminophen 325 mg tablet active Not Available Not Availabl e Not Available minocycline 100 mg capsule active Not Available Not Available N ot Available alendronate 70 mg tablet active Not Available Not Available No t Available clopidogrel 75 mg tablet active Not Available Not Available No t Available sulfamethoxazole 800 mg-trimethoprim 160 mg tablet 03/14 completed Not Available Not Available Not Available tramadol 50 mg tablet active Not Available Not Available Not Available terbinafine HCl 250 mg tablet active Not Available Not Availabl e Not Available potassium chloride ER 20 mEq tablet,extended release(part/ st) active Not Available Not Available Not Available furosemide 80 mg tablet active Not Available Not Available Not Available cephalexin 500 mg capsule active Not Available Not Available N ot Available metformin 1,000 mg tablet active Not Available Not Available No t Available nystatin 100,000 unit/gram topical cream active Not Available Not Availabl e Not Available fluticasone 500 mcg-salmeterol 50 mcg/dose blistr powdr for inhalation active Not Available Not Available N ot Available lidocaine HCl 2 % mucosal solution active Not Available Not Available Not Available omeprazole 20 mg capsule,delayed release active Not Available Not Available Not Available montelukast 10 mg tablet active Not Available Not Available No t Available ergocalciferol (vitamin D2) 1,250 mcg (50,000 unit) capsule active Not Available Not Available Not Available clobetasol 0.05 % topical ointment active Not Available Not Available Not Available nystatin 100,000 unit/gram topical powder active Not Available Not Availab le Not Available azelastine 137 mcg (0.1 %) nasal spray active Not Available Not Available Not Available albuterol sulfate HFA 90 mcg/actuation aerosol inhaler active Not Available Not Availa ble Not Available fluticasone propionate 50 mcg/actuation nasal spray,suspension active Not Available Not Avail able Not Available lisinopril 2.5 mg tablet active Not Available Not Available No t Available colestipol 1 gram tablet active Not Available Not Available Not Available dicyclomine 10 mg capsule active Not Available Not Available N ot Available spironolactone 50 mg tablet active Not Available Not Available Not Available hydroxyzine pamoate 25 mg capsule active Not Available Not Available Not Available cyclobenzaprine 5 mg tablet active Not Available Not Available Not Available aripiprazole 5 mg tablet active Not Available Not Available No t Available chlorhexidine gluconate 0.12 % mouthwash 07/16 completed Not Available Not Available Not Available Plavix 07/16 completed Not Available Not Available Not Available ranolazine ER 500 mg tablet,extended release,12 hr active Not Available Not Availabl e Not Available TRUEplus Lancets 33 gauge active Not Available Not Available Not Available True Metrix Glucose Test Strip active Not Available Not Available Not Available True Metrix Level 2 solution active Not Available Not Avail able Not Available True Metrix Air Glucose Meter kit active Not Available Not Available Not Available Ozempic 0.25 mg or 0.5 mg (2 mg/1.5 mL) subcutaneous pen injector active Not Available Not Available Not Available Emgality Pen 120 mg/mL subcutaneous pen injector active Not Available Not Available Not Available Nurtec ODT 75 mg disintegrating tablet active Not Available Not Available Not Available Ozempic 1 mg/dose (4 mg/3 mL) subcutaneous pen injector active Not Available Not Available Not Available Qulipta 60 mg tablet active Not Available Not Available Not Available DropSafe Alcohol Prep Pads active Not Available Not Available No t Available Ozempic 0.25 mg or 0.5 mg (2 mg/3 mL) subcutaneous pen injector active Not Available Not Available Not Available Vitals Date Recorded Body height Body mass index (BMI) Body weight Provider Name and Address Organization Details Last Updated DateTime 11/21/2022 160.02 cm 35.4 kg/m2 27144.47 g Kiara Ambrocio [facility] 11/21/2022 13:54:25 Social History Question Answer Notes LastModified by Organizat ion Details LastModified Time Tobacco Smoking Status Former Smoker Olivia Pulido [facility] 12/13/2021 14:21:42 Do You Have An Advance Directive? No [email or web address] Information n ot available 07/19/2022 In The 14 Days Before Symptom Onset, Have You Had Close Contact With A Laboratory-confirm ed COVID-19 While That Case Was Ill? No [email or web address] Information n ot available 07/16/2022 In The 14 Days Before Symptom Onset, Have You Had Close Contact With A Person Who Is Under Investigation For COVID-19 While That Person Was Ill? No [email or web address] Information not available 07/16/2022 What Type Of Diet Are You Following? REGULAR Information n ot available 07/16/2022 What Is The Highest Grade Or Level Of School You Have Completed Or The Highest Degree You Have Received? [id number] Information not available 07/16/2022 What Was The Date Of Your Most Recent Tobacco Screening? 07/19/2022 [email or web address] Information not available 07/16/2022 What Is Your Relationship Status? Unknown [email or web address] Information not available 07/16/2022 Sex: Unknown Functional Status Question Answer Note LastModified by Organizat ion Details LastModified Time Do you use any illicit or recreational drugs? No [email or web address] Information not available 12/13/2021 What is your level of alcohol consumption? None [email or web address] Information not available 12/13/2021 Are you currently employed? No [email or web address] Information not available 07/16/2022 Are you able to walk? YESWOREST [email or web address] Information not available 07/16/2022 What is your exercise level? None [email or web address] Information not available 07/16/2022 Mental Status None recorded. Family History Nothing Reported. Medical History Condition Response Bipolar Disease N Coronary Artery Disease Y Seizure Disorder N Gout N Thyroid Disease N Atrial Fibrillation N Hernia N Head Trauma/Injury N COPD Y Depression Y Anxiety Disorder Y Acid Reflux (GERD) Y Cancer N Skin Disorder N Stroke N High Cholesterol N Liver Disease N Rheumatoid Arthritis N Fibromyalgia N Headaches Y Autoimmune Disease N Kidney Disease N Osteoarthritis N Neurosurgery N DVT N Peptic Ulcer Disease N Anemia N Heart Attack ([place]) N Diabetes N Cardiomyopathy N Bleeding Disorder N CHF N AIDS/HIV N Inflammatory Bowel Disease N Dementia N Asthma N Substance Abuse N Sleep Apnea N Hepatitis N Heart Disease N Pulmonary Embolism N Chronic Low Back Pain Y Hypertension Y Osteoporosis N Gynecological HistoryNo gynecological history recorded. Obstetrics History GPAL:G 0 P 0 0 0 0 Past Encounters Encounter ID Performer Location Encounter Start Date Encounter Closed Date Diagnosis/Indication Diagnosis SNOMED-CT Code Diagnosis ICD10 Code Diagnosis Note [id number] LEYDI SALEH MD [place] [address] [place] [address] 12/13/2021 13:45:58 12/13/2021 16:20:49 Cervical spondylosis without myelopathy 025179930 M47.812 Cervical radiculitis 110 98732 M54.12 Long-term drug therapy 839364534 Z79.899 The preliminar y [place] urine drug screen is appropriat e for the class of medication (s) that the patient is being prescribed and based on their risk stratifica tion I will not send this sample for further quantitati ve LCMS testing. [id number] LEYDI SALEH MD [place] [address] [place] [address] 01/19/2022 13:24:27 01/19/2022 14:01:33 Cervical radiculitis 47945320 M54.12 [id number] MD Susannah HENNESSY [address] [place] [address] 02/02/2022 09:03:00 02/02/2022 10:20:24 Cervical spondylosis without myelopathy 859248148 M47.812 Adult heal th examination 210325438 Z00.01 Cervical radiculitis 110 23300 M54.12 [id number] MD Susannah HENNESSY [address] [place] [address] 02/16/2022 12:38:21 02/16/2022 13:20:13 Cervical radiculopathy 26030104 M54.12 [id number] MD Susannah HENNESSY [address] [place] [address] 05/25/2022 12:40:39 05/25/2022 14:05:13 Cervical radiculopathy 46052060 M54.12 [id number] MD Jono HENNESSYington [address] [place] [address] 07/19/2022 08:37:45 07/19/2022 09:12:25 Long-term drug therapy 927934541 Z79.899 Hypertensi on screening 865401645 Z13.6 Cervical s pondylosis without myelopathy 174201605 M47.812 Adult heal th examination 387810715 Z00.01 Cervical radiculitis 110 42405 M54.12 [id number] MD Susannah HENNESSY [address] [place] [address] 09/26/2022 14:04:22 09/26/2022 14:33:01 Cervical radiculopathy 35279440 M54.12 [id number] MD Susannah HENNESSY [address] [place] [address] 11/21/2022 13:50:02 11/22/2022 08:52:21 Cervical spondylosis without myelopathy 947871614 M47.812 Adult heal th examination 705785518 Z00.01 Cervical radiculitis 110 70968 M54.12 Long-term drug therapy 277329331 Z79.899 NO MEDS FROM CP&S [id number] LEYDI SALEH MD [place] [address] [place] [address] 12/10/2022 14:47:50 12/11/2022 10:32:22 Cervical spondylosis without myelopathy 051179972 M47.674 [id number] LEYDI SALEH MD [place] [address] [place] [address] 01/31/2023 14:08:03 01/31/2023 14:38:13 Cervical spondylosis without myelopathy 775661830 M47.042 [id number] LEYDI SALEH MD [place] [address] [place] [address] 03/14/2023 14:22:03 03/14/2023 15:27:17 Cervical spondylosis without myelopathy 608502560 M47.974 [id number] LEYDI SALEH MD [place] [address] [place] [address] 04/17/2023 19:06:40 04/18/2023 09:14:27 Pain disorder with psychological factor 1443715219 07 F45.42 Health Concerns Section Related Observation LastModified by Organization Detai ls LastModified Time None Recorded Concern Status LastModified by Organization Details LastModified Time None Recorded Advance Directives Directive N: Payers Insurance Date Sequence Insurance Name Policy Number Policy Fitzgerald Covered Member ID Fitzgerald Member ID Guarantor Name 07/22/2023 1 [place] [employer] (MEDICARE REPLACEMENT HMO) [id number] Parul Leone [id number] Parul Leone 02/11/2023 2 [employer] (MEDICARE REPLACEMENT/AD VANTAGE - HMO) Parul Leone [id number] Parul Leone Notes Date Note Type Note Provider Name and Address Organization Details Recorded Time 11/21/2022 text/html Follow-up (meds & injections)Reported bypatient.Improvement :Pain is getting worse. 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 Physical Therapy:denies Neuroflow:Not UtilizingNeck painReported bypatient.Onset:10+ years Location:bilateral paraspinal; radiating to the bilateral upper extremities to the hand Duration:constant Context:started without cause Quality:throbbing;tig htness;numbess;burnin g;aching;stabbing Alleviating Factors:nothing helps Aggravating Factors:lying down; lifting; looking down; looking up; turning head to the left; turning head to the right Timing:constant Prior Imaging:MRI Associated Symptoms:no popping/clicking; no bowel incontinence;weakness ;numbness;dizziness;t ingling;pain in upper extremities Previous Cervical Surgery:none Previous Injections:TPI (Dr. 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 Working:no Prior Pain Management:yes (Dr. Schmitt) Functional Scores:Neck Disability Index (NDI) Completed: 50Pain Management InitialReported bypatient.Hand Dominance:left Location:bilateral Quality:aching; burning; stabbing; throbbing; sharp; dull Duration:10+ years Timing:cannot identify Context:cannot identify Alleviating Factors:nothing helps Aggravating Factors:twisting; ROM Associated Symptoms:no weakness; no numbness; no tingling; no swelling; no redness; no warmth; no ecchymosis; no catching/locking; no popping/clicking; no buckling; no grinding; no instability; no radiation down arm; no drainage; no fever; no chills; no weight loss; no change in bowel/bladder habits Previous Surgery:none Prior Imaging:MRI Previous Injections:did not help (Dr. Schmitt) Previous PT:did not help Work Related:no Working:no Patient is present with CP & S for a follow up on neck pain. Patient states their pain has been overall getting a little worse since last visit and rates it a 01/24 today 09/26/2022 (Thera) RICHI C7/T1; 80% pain relief for 1 month; 50% pain relief [id number]/21/2022 NARDA 42% TYRONE HOWARD[facility] [address] [place], [address], [facility] 11/21/2022 16:21:23 OBGyn Episode No OBEpisode recorded.
[2024-12-15 11:38] VITALS: BP 98/56; PULSE 82; RESP 12; O2SAT 96; BMI 22.3
--- NOTE | 2024-12-15 12:08 | A.OFFVIS_ITS ---
[facility] Disclaimer: The information contained in this section may have been updated after the patient was seen, as this information can be updated by other users. Medical History Pre-op evaluation Dyspnea on exertion Abnormal findings on diagnostic imaging of heart and coronary circulation Major depressive disorder Migraine headache Stable on Emgality, Nurtec ODT Chronic pain Dyspnea Bilateral hearing loss Bilateral tinnitus Hearing loss Asthma Allergic rhinitis Sleep disorder breathing Seasonal allergies Chronic cough Asthma exacerbation Mild persistent asthma Noise-induced hearing loss of both ears Tinnitus of right ear Tinnitus of left ear Abnormal stress test Obesity 29 pound weight loss since October, taking Ozempic Encounter for pre-operative cardiovascular clearance Chest pain Dyspnea Sinus tachycardia Abnormal electrocardiography Swelling of left lower extremity Preoperative clearance Dyspnea Chest pain HHD (hypertensive heart disease) Surgical History History of tubal ligation X2 -had this done; and 3 years later got -and had this done again History of cholecystectomy History of hysterectomy History of heart artery stent History of cardiac cath History of arthroscopic knee surgery Family History Other Coronary artery disease Diabetes Hyperlipidemia Hypertension No significant family history Thyroid disorder Social History Smoking Status: Former smoker second hand exposure: No alcohol intake: never counseling given: No substance use type: denies use counseling given: No current occupational status: other Travel in the last 8 weeks?: None adopted: No caregiver/support person: No foster care: No household members: family housing: house lives independently: No marital status: number of children: 2 number of grandchildren: 4 education level: college current occupational exposures/hazards: No Hx Recent Travel: No sexually active: No caffeine: Yes physical activity: none abelardo/jain: None special abelardo needs: No working smoke detector in home: Yes fire extinguisher in home: No carbon monox detector in home: No firearms in home: No do you feel safe at home: Yes victim of physical abuse: No victim of emotional abuse: No victim of sexual abuse: No would you like helpful sources: No PM Subjective & Objective Subjective Subjective:: Patient is a pleasant 54-year-old female who presents today for follow-up regarding her first cervical medial branch block on 11/24/2024. Today she rates her pain a 6 out of 10. She states that she did have 75 to 80% relief following this injection and had very minimal pain when it was really working. She does however state that it is starting to wear back off and she is back to having limited range of motion of her neck. Patient does state that she would like to proceed forward with the next step. Patient has had improved function through these injections and has really noticed a difference. Patient is currently managed with baclofen 10 mg 3 times a day and compounded cream from our office. She denies any side effects. Her Amador has been reviewed and is appropriate. Review of Systems: General: No recent weight changes, no fever, no sleep disturbances Respiratory: No cough, no shortness of air, no recurring pulmonary infections Cardiovascular/peripheral vascular: No chest pain, no palpitations, no edema, no shortness of breath Gastrointestinal: No new onset incontinence, normal bowel movements reported Genitourinary: No new onset incontinence Musculoskeletal: Neck pain Psychiatric: [Normal mood/affect] Neurological: [Denies weakness in extremities], [denies balance issues] Pain at rest (0-10 scale): 6 Objective Objective:: Physical Exam: General: Alert and oriented x3, no acute distress, pleasant and cooperative Lungs: Respirations even and unlabored, symmetrical chest expansion Eyes: PERRL Musculoskeletal: Flexion and extension of cervical [spine] somewhat guarded secondary to pain, [antalgic gait noted] positive Kemps test Neurological: Speech clear, no gross sensory deficit Has patient had previous pain injection?: Yes Percent improvement in pain since last injection: 75 to 80% Conservative treatment options previously tried: Home exercise plan Length of treatment: Longer than 12 weeks Meds Home Medications and Allergies Home Medications ?Medication ?Instructions ?Recorded ?Confirmed ?Type cetirizine 10 mg tablet 10 mg PO DAILY Allergy sympt oms 04/14/21 12/15/24 Rx #60 tabs ketotifen fumarate 0.025 % (0.035 See Rx Instructions .Route 01/14/23 12/15/24 Rx %) eye drops .COMPLEX #5 mL estradiol 0.01% (0.1 mg/gram) See Rx Instructions vagi nal 02/24/24 12/15/24 Rx vaginal cream .COMPLEX #42.5 grams oxybutynin chloride 10 mg 10 mg PO DAILY #90 tabs 09/03/1012/15/24 Rx tablet,extended release 24 hr lisinopril 2.5 mg tablet See Rx Instructions .Route 1 07/19/23 12/15/24 Rx .COMPLEX #90 tabs nystatin 100,000 unit/gram topical See Rx Instructions .Route 06/08/24 12/15/24 Rx powder ([facility]) .COMPLEX #60 grams nitroglycerin 0.4 mg sublingual 0.4 mg sublingual Q5M PRN chest 07/01/24 12/15/24 Rx tablet pain #20 tabs ipratropium 0.5 mg-albuterol 3 mg 3 ml inhalation QID PRN shortness 07/06/24 12/15/24 Rx (2.5 mg base)/3 mL nebulization of breath or wheezing #90 mL soln metformin 1,000 mg tablet See Rx Instructions .Route 0 08/16/24 12/15/24 Rx .COMPLEX #180 tabs potassium chloride 20 mEq See Rx Instructions .Route 0 08/16/24 12/15/24 Rx tablet,extended release(part/cryst) .COMPLEX #90 tabs ergocalciferol (vitamin D2) 1,250 See Rx Instructions .Route 08/27/24 12/15/24 Rx mcg (50,000 unit) capsule (Vitamin .COMPLEX #14 caps D2) alendronate 70 mg tablet See Rx Instructions .Route 0 09/04/24 12/15/24 Rx .COMPLEX #14 tabs furosemide 80 mg tablet 80 mg PO DAILY #90 tabs 03/11/0812/15/24 Rx clopidogrel 75 mg tablet 75 mg PO DAILY Blood thinner #90 09/10/24 12/15/24 Rx tabs hydroxyzine pamoate 25 mg capsule 25 mg PO HS SLEEP #9 0 caps 09/10/24 12/15/24 Rx ferrous sulfate 325 mg (65 mg 325 mg PO DAILY #30 tabs 09/15/24 12/15/24 Rx iron) tablet fluticasone propionate 50 See Rx Instructions .Route 0 09/23/24 12/15/24 Rx mcg/actuation nasal .COMPLEX #16 caps spray,suspension ranolazine 500 mg tablet,extended 500 mg PO BID #60 ta bs 10/05/24 12/15/24 Rx release,12 hr omeprazole 40 mg capsule,delayed 40 mg PO DAILY #30 ca ps 10/16/24 12/15/24 Rx release albuterol sulfate 90 mcg/actuation 2 inh inhalation Q6 HP PRN 10/19/24 12/15/24 Rx aerosol inhaler Shortness Of Breath #8.5 gra ms magnesium oxide 400 mg PO BID #60 tabs 10/1912/15/24 Rx metoprolol succinate 25 mg 12.5 mg (1/2 x 25 mg) PO DA LEWIS #90 10/19/24 12/15/24 Rx tablet,extended release 24 hr tabs rimegepant 75 mg disintegrating 75 mg PO DAILYP PRN Mi graine 10/19/24 12/15/24 Rx tablet Headache #10 tabs fluticasone 500 mcg-salmeterol 50 1 inh inhalation BID 90 days #180 10/20/24 12/15/24 Rx mcg/dose blistr powdr for ea inhalation montelukast 10 mg tablet See Rx Instructions .Route 0 10/20/24 12/15/24 Rx .COMPLEX #90 tabs ropinirole 1 mg tablet 1 mg PO DAILY #60 tabs 10/2012/15/24 Rx baclofen 10 mg tablet 10 mg PO TID #270 tabs 10/2612/15/24 Rx galcanezumab-gnlm 120 mg/mL 120 mg SQ QMONTH Migraine #1 mL 10/26/24 12/15/24 Rx subcutaneous pen injector (Emgality Pen) colestipol 1 gram tablet See Rx Instructions .Route 0 10/28/24 12/15/24 Rx .COMPLEX #90 tabs atorvastatin 80 mg tablet (Lipitor) 80 mg PO DAILY #30 tabs 10/29/24 12/15/24 Rx topiramate 50 mg tablet (Topamax) 50 mg PO HS #30 tabs 10/29/24 12/15/24 Rx semaglutide 2 mg/dose (8 mg/3 mL) 2 mg (0.75 mL) SQ WE EKLY #3 mL 11/02/24 12/15/24 Rx subcutaneous pen injector (Ozempic) amoxicillin 875 mg-potassium 1 tab PO BID 10 days #20 tabs 11/03/24 12/15/24 Rx clavulanate 125 mg tablet benzonatate 100 mg capsule 100 mg PO TID PRN cough #30 caps 11/03/24 12/15/24 Rx cariprazine 1.5 mg capsule See Rx Instructions .Route 11/19/24 12/15/24 Rx (Vraylar) .COMPLEX #30 caps quetiapine 25 mg tablet (Seroquel) 25 mg PO HS #30 tab s 11/19/24 12/15/24 Rx venlafaxine 37.5 mg 37.5 mg PO DAILY #30 caps 12/15/24 Rx capsule,extended release 24 hr (Effexor XR) hydrocodone 5 mg-acetaminophen 325 1 tab PO BID PRN pa in #60 tabs 12/05/24 12/15/24 Rx mg tablet peg 3350-electrolytes 236 240 ml PO Q10M colonscopy #4 ,000 mL 12/07/24 12/15/24 Rx gram-22.74 gram-6.74 gram-5.86 gram solution (Golytely) New Prescriptions to Start Prescriptions: Allergies Allergy/AdvReac Type Severity Reaction Status Date / Time milk AdvReac Mild Nausea Verified 11/19/24 13:57 Assessment and Plan *Assessment and plan (1) Cervical spondylosis: Status: Acute Category: Medical Code(s): M47.812 - Spondylosis without myelopathy or radiculopathy, cervical region (2) Degenerative disc disease, cervical: Status: Chronic Category: Medical Code(s): M50.30 - Other cervical disc degeneration, unspecified cervical region Plan Patient has had her first successful cervical medial branch block providing 80% relief and giving additional improved function overall. Patient had 75 to 80% relief with her most recent block that did last nearly 2 weeks. Patient states that her pain level was very minimal following that procedure when it was working really well of around 1 out of 10. Patient denies any radiating symptoms into her neck. She did have limited range of motion and a positive Kemps test. I did discuss with the patient that she may benefit from a second cervical medial branch block. Risk and benefits were discussed with the patient and she would like to proceed forward with this plan of care. Patient has tried and failed conservative therapy including oral medication, heat and ice, topicals, at home stretching exercise for longer than 12 weeks. Patient has had chronic neck pain for years and does have symptoms appropriate for these injections of cervical spondylosis. Patient has had very good success in the past with the lumbar RFA's. We will submit to insurance for her second cervical medial branch block bilaterally C5-C6 and C6-C7 under fluoroscopy. Patient is currently on blood thinners that is written by Dr. Gonzales's office. We will reach out to this provider and confirm that she can stop this medication prior to this procedure. Patient agrees with this plan of care. Patient has been instructed to contact the clinic with any concerns before the next appointment. Dr. Schmitt has reviewed this note and agrees with this plan of care. This note was dictated using voice recognition software and make contain errors or omissions. All injections are used with Lidocaine, Bupivacaine and dexamethasone. Occasionally urine drug screen is needed to verify patient's compliance with our office pain contract. This is ordered based off specific treatments related to chronic pain with the potential to abuse certain medications.
== END 2024-12-15 23:59 | disposition home or self-care (01) ==
LOC: SC.PAIN 11:31
PROVIDERS: PCP Nurse Practitioner Family; Visit Provider Nurse Practitioner Family
DX: M47.812 Spondylosis without myelopathy or radiculopathy, cervical region (principal); M50.30 Other cervical disc degeneration, unspecified cervical region; Z79.899 Other long term (current) drug therapy
CPT/HCPCS: 99212; G0463

== ENCOUNTER 2024-12-21 10:11 | Day surgery (SDC) | payer MEDICARE, SELFPAY ==
[2024-12-21 13:57] VITALS: BMI 22.3
[2024-12-21 14:06] VITALS: BP 121/69; PULSE 75; RESP 18; TEMP 36.1; O2SAT 98
--- NOTE | 2024-12-21 15:36 | EXP.ANES.CKL ---
[facility] Disclaimer: The information contained in this section may have been updated after the patient was seen, as this information can be updated by other users. Medical History Pre-op evaluation Dyspnea on exertion Abnormal findings on diagnostic imaging of heart and coronary circulation Major depressive disorder Migraine headache Stable on Emgality, Nurtec ODT Chronic pain Dyspnea Bilateral hearing loss Bilateral tinnitus Hearing loss Asthma Allergic rhinitis Sleep disorder breathing Seasonal allergies Chronic cough Asthma exacerbation Mild persistent asthma Noise-induced hearing loss of both ears Tinnitus of right ear Tinnitus of left ear Abnormal stress test Obesity 29 pound weight loss since October, taking Ozempic Encounter for pre-operative cardiovascular clearance Chest pain Dyspnea Sinus tachycardia Abnormal electrocardiography Swelling of left lower extremity Preoperative clearance Dyspnea Chest pain HHD (hypertensive heart disease) Surgical History History of tubal ligation X2 -had this done; and 3 years later got -and had this done again History of cholecystectomy History of hysterectomy History of heart artery stent History of cardiac cath History of arthroscopic knee surgery Family History Other Coronary artery disease Diabetes Hyperlipidemia Hypertension No significant family history Thyroid disorder Social History Smoking Status: Former smoker second hand exposure: No alcohol intake: never counseling given: No substance use type: denies use counseling given: No current occupational status: other Travel in the last 8 weeks?: None adopted: No caregiver/support person: No foster care: No household members: family housing: house lives independently: No marital status: number of children: 2 number of grandchildren: 4 education level: college current occupational exposures/hazards: No Hx Recent Travel: No sexually active: No caffeine: Yes physical activity: none abelardo/spiritism: None special abelardo needs: No working smoke detector in home: Yes fire extinguisher in home: No carbon monox detector in home: No firearms in home: No do you feel safe at home: Yes victim of physical abuse: No victim of emotional abuse: No victim of sexual abuse: No would you like helpful sources: No Have you lived/traveled outside [place] in past 30 days?: No Contact w/someone who lives/traveled outside [place] past 30 days?: No Exposure to someone with infectious disease in past 14 days?: No Do you have a fever (greater than 100.4 F or 38 C)?: No Have you tested positive for COVID-19?: No Exposed to someone with COVID-19 in past 14 days?: No Do you have a sore throat?: No Do you have a cough?: No Do you have any weakness?: No Do you have any diarrhea?: No Are you experiencing any unusual bleeding?: No Do you have any muscle aches/pain?: No Do you have any abdominal pain?: No Are you experiencing loss of taste or smell?: No [facility] Anesthesia Checklist Patient Identification Patient Identification: Arm Band Structural Data Admitted From: Home Planned Operative Procedure/s: Colonoscopy Consent for Planned Operative Procedure(s) Verified: Yes Verified Documents: Surgical Consent and History and Physical NPO Status Verified Time NPO: 00:00 Additional verifications Anesthesia Reactions: No Hx Blood Transfusions: No Blood Transfusion Reaction: No Airway Assessment Mallampati Score:: Class II C-Spine Mobility Assessed: Yes TMJ Mobility Assessed: Yes Dentition: Edentulous Neurological Assessment Level of Consciousness: Awake, Alert and Appropriate Anesthesia Plan Anesthesia Risk discussed: Yes Anesthesia Plan: Verified ASA Class: III Anesthesia Type: MAC
--- NOTE | 2024-12-21 15:42 | EXP.HP ---
History of Present Illness *Admission Date: 12/21/24 *Reason for visit:: Screening for colon cancer *History of present illness: Mrs. Leone is a 64-year-old female who is here for screening colonoscopy. Her last colonoscopy was at age 51. She does state that her maternal grandmother had colon cancer. She has a long history of diarrhea predominant IBS. The examination is deemed medically necessary for screening colonoscopy. The patient has been seen, interviewed and examined prior to the procedure by both myself and the anesthesia provider. [facility] Disclaimer: The information contained in this section may have been updated after the patient was seen, as this information can be updated by other users. Medical History Pre-op evaluation Dyspnea on exertion Abnormal findings on diagnostic imaging of heart and coronary circulation Major depressive disorder Migraine headache Stable on Emgality, Nurtec ODT Chronic pain Dyspnea Bilateral hearing loss Bilateral tinnitus Hearing loss Asthma Allergic rhinitis Sleep disorder breathing Seasonal allergies Chronic cough Asthma exacerbation Mild persistent asthma Noise-induced hearing loss of both ears Tinnitus of right ear Tinnitus of left ear Abnormal stress test Obesity 29 pound weight loss since October, taking Ozempic Encounter for pre-operative cardiovascular clearance Chest pain Dyspnea Sinus tachycardia Abnormal electrocardiography Swelling of left lower extremity Preoperative clearance Dyspnea Chest pain HHD (hypertensive heart disease) Surgical History History of tubal ligation X2 -had this done; and 3 years later got -and had this done again History of cholecystectomy History of hysterectomy History of heart artery stent History of cardiac cath History of arthroscopic knee surgery Family History Other Coronary artery disease Diabetes Hyperlipidemia Hypertension No significant family history Thyroid disorder Social History Smoking Status: Former smoker second hand exposure: No alcohol intake: never counseling given: No substance use type: denies use counseling given: No current occupational status: other Travel in the last 8 weeks?: None adopted: No caregiver/support person: No foster care: No household members: family housing: house lives independently: No marital status: number of children: 2 number of grandchildren: 4 education level: college current occupational exposures/hazards: No Hx Recent Travel: No sexually active: No caffeine: Yes physical activity: none abelardo/yarsani: None special abelardo needs: No working smoke detector in home: Yes fire extinguisher in home: No carbon monox detector in home: No firearms in home: No do you feel safe at home: Yes victim of physical abuse: No victim of emotional abuse: No victim of sexual abuse: No would you like helpful sources: No Have you lived/traveled outside US in past 30 days?: No Contact w/someone who lives/traveled outside [place] past 30 days?: No Exposure to someone with infectious disease in past 14 days?: No Do you have a fever (greater than 100.4 F or 38 C)?: No Have you tested positive for COVID-19?: No Exposed to someone with COVID-19 in past 14 days?: No Do you have a sore throat?: No Do you have a cough?: No Do you have any weakness?: No Do you have any diarrhea?: No Are you experiencing any unusual bleeding?: No Do you have any muscle aches/pain?: No Do you have any abdominal pain?: No Are you experiencing loss of taste or smell?: No Other Medical History Have you received the Flu Vaccine for this season: Yes Have you received the Pneumonia Vaccine: Yes Review of Systems Review of Systems Review of systems (narrative): Negative *Cardiovascular Comments: Negative *Gastrointestinal Comments: Negative *Genitourinary Comments: Negative *Musculoskeletal Comments: Negative *Neurologic Comments: Negative Meds Home Medications and Allergies Home Medications ?Medication ?Instructions ?Recorded ?Confirmed ?Type cetirizine 10 mg tablet 10 mg PO DAILY Allergy symptoms 04/14/21 12/21/24 Rx #60 tabs ketotifen fumarate 0.025 % (0.035 See Rx Instructions .Route 01/14/23 12/21/24 Rx %) eye drops .COMPLEX #5 mL estradiol 0.01% (0.1 mg/gram) See Rx Instructions vaginal 02/24/24 12/21/24 Rx vaginal cream .COMPLEX #42.5 grams oxybutynin chloride 10 mg 10 mg PO DAILY #90 tabs 02/24/24 12/21/24 Rx tablet,extended release 24 hr lisinopril 2.5 mg tablet See Rx Instructions .Route 05/18/24 12/21/24 Rx .COMPLEX #90 tabs nystatin 100,000 unit/gram topical See Rx Instructions .Route 06/08/24 12/21/24 Rx powder ([facility]) .COMPLEX #60 grams nitroglycerin 0.4 mg sublingual 0.4 mg sublingual Q5M PRN chest 07/01/24 12/21/24 Rx tablet pain #20 tabs ipratropium 0.5 mg-albuterol 3 mg 3 ml inhalation QID PRN shortness 07/06/24 12/21/24 Rx (2.5 mg base)/3 mL nebulization of breath or wheezing #90 mL soln metformin 1,000 mg tablet See Rx Instructions .Route 08/16/24 12/21/24 Rx .COMPLEX #180 tabs potassium chloride 20 mEq See Rx Instructions .Route 08/16/24 12/21/24 Rx tablet,extended release(part/cryst) .COMPLEX #90 tabs ergocalciferol (vitamin D2) 1,250 See Rx Instructions .Route 08/27/24 12/21/24 Rx mcg (50,000 unit) capsule (Vitamin .COMPLEX #14 caps D2) alendronate 70 mg tablet See Rx Instructions .Route 09/04/24 12/21/24 Rx .COMPLEX #14 tabs furosemide 80 mg tablet 80 mg PO DAILY #90 tabs 09/08/24 12/21/24 Rx clopidogrel 75 mg tablet 75 mg PO DAILY Blood thinner #90 09/10/24 12/21/24 Rx tabs hydroxyzine pamoate 25 mg capsule 25 mg PO HS SLEEP #90 caps 09/10/24 12/21/24 Rx ferrous sulfate 325 mg (65 mg 325 mg PO DAILY #30 tabs 09/15/24 12/21/24 Rx iron) tablet fluticasone propionate 50 See Rx Instructions .Route 09/23/24 12/21/24 Rx mcg/actuation nasal .COMPLEX #16 caps spray,suspension ranolazine 500 mg tablet,extended 500 mg PO BID #60 tabs 10/05/24 12/21/24 Rx release,12 hr omeprazole 40 mg capsule,delayed 40 mg PO DAILY #30 caps 10/16/24 12/21/24 Rx release albuterol sulfate 90 mcg/actuation 2 inh inhalation Q6HP PRN 10/19/24 12/21/24 Rx aerosol inhaler Shortness Of Breath #8.5 grams metoprolol succinate 25 mg 12.5 mg (1/2 x 25 mg) PO DAILY #90 10/19/24 12/21/24 Rx tablet,extended release 24 hr tabs rimegepant 75 mg disintegrating 75 mg PO DAILYP PRN Migraine 10/19/24 12/21/24 Rx tablet Headache #10 tabs fluticasone 500 mcg-salmeterol 50 1 inh inhalation BID 90 days #180 10/20/24 12/21/24 Rx mcg/dose blistr powdr for ea inhalation montelukast 10 mg tablet See Rx Instructions .Route 10/20/24 12/21/24 Rx .COMPLEX #90 tabs ropinirole 1 mg tablet 1 mg PO DAILY #60 tabs 10/20/24 12/21/24 Rx baclofen 10 mg tablet 10 mg PO TID #270 tabs 10/26/24 12/21/24 Rx galcanezumab-gnlm 120 mg/mL 120 mg SQ QMONTH Migraine #1 mL 10/26/24 12/21/24 Rx subcutaneous pen injector (Emgality Pen) colestipol 1 gram tablet See Rx Instructions .Route 10/28/24 12/21/24 Rx .COMPLEX #90 tabs atorvastatin 80 mg tablet (Lipitor) 80 mg PO DAILY #30 tabs 10/29/24 12/21/24 Rx topiramate 50 mg tablet (Topamax) 50 mg PO HS #30 tabs 10/29/24 12/21/24 Rx semaglutide 2 mg/dose (8 mg/3 mL) 2 mg (0.75 mL) SQ WEEKLY #3 mL 11/02/24 12/21/24 Rx subcutaneous pen injector (Ozempic) benzonatate 100 mg capsule 100 mg PO TID PRN cough #30 caps 11/03/24 12/21/24 Rx cariprazine 1.5 mg capsule See Rx Instructions .Route 11/19/24 12/21/24 Rx (Vraylar) .COMPLEX #30 caps quetiapine 25 mg tablet (Seroquel) 25 mg PO HS #30 tabs 11/19/24 12/21/24 Rx hydrocodone 5 mg-acetaminophen 325 1 tab PO BID PRN pain #60 tabs 12/05/24 12/21/24 Rx mg tablet magnesium oxide 400 mg PO BID #60 tabs 12/17/24 12/21/24 Rx venlafaxine 37.5 mg 37.5 mg PO DAILY #30 caps 12/17/24 12/21/24 Rx capsule,extended release 24 hr (Effexor XR) New Prescriptions to Start Prescriptions: Allergies Allergy/AdvReac Type Severity Reaction Status Date / Time milk AdvReac Mild Nausea Verified 11/19/24 13:57 Exam Data for Last 24 hours Vital signs and Labs for Last 24 Hours: Temp Pulse Resp BP Pulse Ox O2 Del Method 97.0 F L 75 18 121/69 98 Room Air 12/21/24 14:06 12/21/24 14:06 12/21/24 14:06 12/21/24 14:06 12/21/24 14:06 12/21/24 14:06 I & O for Last 24 hours: Intake & Output 12/18/24 12/19/24 12/20/24 12/21/24 23:59 23:59 23:59 23:59 Weight 126 lb *Routine HEENT Exam Head: Present normocephalic Eye: Present EOMI and PERRL ENT: Present mucous membranes moist *Routine Neck Exam Neck: Present supple *Routine Respiratory Exam Respiratory: Present CTA bilaterally *Routine Cardiovascular Exam Cardiovascular: Present RRR *Routine Abdominal Exam Abdominal: Present soft and normoactive bowel sounds; Absent tenderness *Routine Rectal Exam Rectal:: deferred *Routine Genitalia Exam Genitalia:: deferred *Routine Extremities Exam Extremities: Absent cyanosis, clubbing or edema *Routine Skin Exam Skin: Present warm; Absent rash *Routine Neurological Exam Neurological: Present alert and oriented X3 Assessment and Plan *Assessment and plan (1) Screening for colon cancer: Status: Acute Category: Medical Code(s): Z12.11 - Encounter for screening for malignant neoplasm of colon Plan A/P: 1. Screening for colon cancer is the preprocedural diagnosis. Her last colonoscopy was 13 years ago. The patient will be anesthetized/sedated using MAC sedation. The patient has been seen and examined. Cardiac and lung assessment prior to the examination is stable. Proceed with planned screening colonoscopy.
--- NOTE | 2024-12-21 15:44 | P.PCN_ITS ---
[facility] Procedure Note Date: 12/21/24 Time: 15:58 Procedure Note:: Colonoscopy Procedure Report: Colonoscopy with cold biopsies Endoscopist: Rakesh Wade II, MD Referring physician: KEVIN Lu Date of Procedure: December 21, 2024 Equipment: Olympus 190 variable stiffness pediatric colonoscope Sedation: MAC sedation Indication: Mrs. Leone is a 64-year-old female who is here for follow-up screening/surveillance colonoscopy. Her last colonoscopy was 13 years ago (age 51). She does have a history of longstanding IBS?D. She does state that her sister had colon polyps and her maternal grandmother had colon cancer. She reports no abdominal pain, rectal bleeding or weight loss. Procedure: Prior to the procedure, a history and physical exam was performed, and patient's medications and allergies were reviewed. The risks, benefits and alternatives of the sedation and procedure were discussed with the patient. All questions were answered and informed consent was obtained. The patient was brought to the procedure room. Patient identification and proposed procedure were verified by the physician and the nurse. The patient was placed in a left lateral decubitus position and the scope was passed under direct vision. Throughout the procedure, the patient's blood pressure, pulse, and oxygen saturations were monitored continuously. The colonoscopy was accomplished without difficulty. The patient tolerated the procedure well. Findings: On digital rectal examination there was normal rectal tone. There were no external hemorrhoids. The colonoscope was introduced through the anal canal to the rectum and advanced to the cecum. The ileocecal valve and appendiceal o rifice were identified. The scope was advanced a short distance into the ileum which appeared grossly normal. The scope was then withdrawn into the colon. The cecum, ascending, transverse, descending, sigmoid and rectum were grossly normal. Random cold biopsies were taken from the right colon to rule out microscopic colitis. There were no mucosal abnormalities identified. Upon retroflexion within the rectum there were grade 1-2 internal hemorrhoids. The preparation was fair throughout with [place] Preparation Score of 7 out of 9. The cecal time was 12 minutes. Impression: 1. Normal colonoscopy with intubation of the terminal ileum Plan: The patient will not require surveillance colonoscopy again for 10 years by ACS guidelines. I would encourage bulking fiber supplementation on a maintenance basis. I will check the biopsies to rule out microscopic colitis.
[2024-12-21 15:59] VITALS: BP 106/63; PULSE 87; RESP 16; TEMP 36.5; O2SAT 96
[2024-12-21 16:09] VITALS: BP 105/60; PULSE 79; RESP 16; O2SAT 100
[2024-12-21 16:18] VITALS: BP 109/68; PULSE 78; RESP 16; O2SAT 100
[2024-12-21 16:19] VITALS: BP 113/61; PULSE 76; RESP 16; O2SAT 100
[2024-12-23 19:07] LABS: POC Glucose,Bedside 60 (70-110)
== END 2024-12-21 16:22 | disposition home or self-care (01) ==
PROVIDERS: PCP Nurse Practitioner Family; Visit Provider Internal Medicine Gastroenterology
PROC: 0DJD8ZZ Inspection of Lower Intestinal Tract, Via Natural or Artificial Opening Endoscopic (ICD-10-PCS; CPT 45378; principal; 2024-12-21 16:00)
DX: Z12.11 Encounter for screening for malignant neoplasm of colon (principal); Z80.0 Family history of malignant neoplasm of digestive organs; Z83.719 Family history of colon polyps, unspecified; K64.1 Second degree hemorrhoids; K58.0 Irritable bowel syndrome with diarrhea; F32.9 Major depressive disorder, single episode, unspecified; G43.909 Migraine, unspecified, not intractable, without status migrainosus; G89.29 Other chronic pain; J45.30 Mild persistent asthma, uncomplicated; H83.3X3 Noise effects on inner ear, bilateral; I11.9 Hypertensive heart disease without heart failure; Z91.09 Other allergy status, other than to drugs and biological substances; Z91.011 Allergy to milk products; Z79.85 Long-term (current) use of injectable non-insulin antidiabetic drugs; Z90.49 Acquired absence of other specified parts of digestive tract; Z87.891 Personal history of nicotine dependence; Z79.899 Other long term (current) drug therapy; Z79.890 Hormone replacement therapy; Z79.84 Long term (current) use of oral hypoglycemic drugs; Z79.83 Long term (current) use of bisphosphonates; Z79.02 Long term (current) use of antithrombotics/antiplatelets; Z79.51 Long term (current) use of inhaled steroids; Z79.620 Long term (current) use of immunosuppressive biologic
CPT/HCPCS: 45380; 82962; 88305; J2003; J2704

== ENCOUNTER 2025-01-05 08:06 | Day surgery (SDC) | payer MEDICARE, SELFPAY ==
[2025-01-05 08:15] VITALS: BP 101/60; PULSE 75; RESP 18; O2SAT 96; BMI 22.1
[2025-01-05 08:29] VITALS: BP 101/58; PULSE 75; PULSE 77; RESP 18; O2SAT 99
[2025-01-05] MEDS: LIDOCAINE 1% 5ML PF VIAL 5 ML (08:32)
[2025-01-05] MEDS: BUPIVACAINE 0.25% 10ML INJ 25 MG IJ (08:32)
--- NOTE | 2025-01-05 08:36 | EXP.PAIN.PRO ---
Procedure Date: 01/05/25 Time: 08:30 Anesthesiologist:: Cecil Montemayor CRNA Complications:: None Pre-procedure Diagnosis:: Cervical spine multilevels. Cervical spondylosis. Cervical facet arthropathy. Cervical radiculopathy. Post-procedure Diagnosis:: Same. Indications for Procedure:: Patient is a very pleasant 64-year-old female that comes her going today for round 2 of diagnostic cervical medial branch block/facet injections at the bilateral C5-6, C6-7 level. Patient describes cervical neck pain is constant, dull, aching. She also reports difficulty with cervical flexion, extension, left and right rotation. She reports significant improvement terms of her overall cervical neck pain 90% with round 1 of previous injections same level. Procedure Details:: Informed consent was obtained and the risk and benefits of the procedure was explained to the patient. Patient was taken to the procedure room where noninvasive monitors were placed, including noninvasive blood pressure cuff as well as pulse oximeter. The area over the posterior cervical spine was cleansed using chlorhexidine as a cleansing solution. I anesthetized the skin and subcutaneous tissues with 1% Lidocaine. I placed 25 -gauge spinal needles into the facet joint/ medial branches of C5-6, C6-7 bilaterally. Needle placement was confirmed with fluoroscopy. After confirmation of needle placement, each site was injected with 1 mL of 1% lidocaine. Patient tolerated the procedure without difficulty. There were no complications. Plan and Disposition:: Patient was discharged without incident.
[2025-01-05 08:42] VITALS: BP 112/63; PULSE 76; RESP 18; O2SAT 98
[2025-01-05] MEDS: IOPAMIDOL-200 (41%);10ML VIAL 3 ML IV (08:54)
== END 2025-01-05 08:42 | disposition home or self-care (01) ==
PROVIDERS: PCP Nurse Practitioner Family; Visit Provider Nurse Anesthetist, Certified Registered
DX: M47.812 Spondylosis without myelopathy or radiculopathy, cervical region (principal); M50.10 Cervical disc disorder with radiculopathy, unspecified cervical region; E66.9 Obesity, unspecified; J45.30 Mild persistent asthma, uncomplicated; G43.909 Migraine, unspecified, not intractable, without status migrainosus; F32.9 Major depressive disorder, single episode, unspecified; I11.9 Hypertensive heart disease without heart failure; Z87.891 Personal history of nicotine dependence; Z79.899 Other long term (current) drug therapy; Z79.02 Long term (current) use of antithrombotics/antiplatelets; Z79.85 Long-term (current) use of injectable non-insulin antidiabetic drugs; Z91.011 Allergy to milk products
CPT/HCPCS: 64490; 64491; J0665; J2003; Q9966

== ENCOUNTER 2025-01-19 13:45 | Outpatient (POV) | payer MEDICARE, SELFPAY ==
[2025-01-19 13:51] VITALS: BP 108/61; PULSE 83; RESP 14; O2SAT 98; BMI 21.7
--- NOTE | 2025-01-19 13:56 | A.OFFVIS_ITS ---
[facility] Disclaimer: The information contained in this section may have been updated after the patient was seen, as this information can be updated by other users. Medical History Pre-op evaluation Dyspnea on exertion Abnormal findings on diagnostic imaging of heart and coronary circulation Major depressive disorder Migraine headache Stable on Emgality, Nurtec ODT Chronic pain Dyspnea Bilateral hearing loss Bilateral tinnitus Hearing loss Asthma Allergic rhinitis Sleep disorder breathing Seasonal allergies Chronic cough Asthma exacerbation Mild persistent asthma Noise-induced hearing loss of both ears Tinnitus of right ear Tinnitus of left ear Abnormal stress test Obesity 29 pound weight loss since October, taking Ozempic Encounter for pre-operative cardiovascular clearance Chest pain Dyspnea Sinus tachycardia Abnormal electrocardiography Swelling of left lower extremity Preoperative clearance Dyspnea Chest pain HHD (hypertensive heart disease) Surgical History History of tubal ligation X2 -had this done; and 3 years later got -and had this done again History of cholecystectomy History of hysterectomy History of heart artery stent History of cardiac cath History of arthroscopic knee surgery Family History Other Coronary artery disease Diabetes Hyperlipidemia Hypertension No significant family history Thyroid disorder Social History Smoking Status: Former smoker second hand exposure: No alcohol intake: never counseling given: No substance use type: denies use counseling given: No current occupational status: other Travel in the last 8 weeks?: None adopted: No caregiver/support person: No foster care: No household members: family housing: house lives independently: No marital status: number of children: 2 number of grandchildren: 4 education level: college current occupational exposures/hazards: No Hx Recent Travel: No sexually active: No caffeine: Yes physical activity: none abelardo/episcopalian: None special abelardo needs: No working smoke detector in home: Yes fire extinguisher in home: No carbon monox detector in home: No firearms in home: No do you feel safe at home: Yes victim of physical abuse: No victim of emotional abuse: No victim of sexual abuse: No would you like helpful sources: No PM Subjective & Objective Subjective Subjective:: Patient is a pleasant 64-year-old female who presents today for follow-up of her second cervical medial branch block bilaterally C5-C6 and C6-C7 on 01/05/2025. Today she does state that in the initial hours after this injection she had at least 75 to 80% improvement and then it did decrease down once that had worn off. Patient does state that it was very beneficial during those few hours and made the pain much more manageable and not as severe. Patient does rate her pain going back up today of at least a 6 or more and states it is still the same pain that is worse with turning her head [id number] or looking up and down. Patient does state the pain interferes with her ability perform activities of daily living such as cooking and cleaning and she does want to proceed forward with the ablation. Patient is prescribed compounded cream and baclofen 10 mg 3 times a day from our office. She denies any side effects and does not need refills at this time. Her [place] has been reviewed and is appropriate. Review of Systems: General: No recent weight changes, no fever, no sleep disturbances Respiratory: No cough, no shortness of air, no recurring pulmonary infections Cardiovascular/peripheral vascular: No chest pain, no palpitations, no edema, no shortness of breath Gastrointestinal: No new onset incontinence, normal bowel movements reported Genitourinary: No new onset incontinence Musculoskeletal: Neck pain Psychiatric: [Normal mood/affect] Neurological: [Denies weakness in extremities], [denies balance issues] Pain at rest (0-10 scale): 6 Objective Objective:: Physical Exam: General: Alert and oriented x3, no acute distress, pleasant and cooperative Lungs: Respirations even and unlabored, symmetrical chest expansion Eyes: PERRL Musculoskeletal: Flexion and extension of cervical [spine] somewhat guarded secondary to pain, [antalgic gait noted] positive Kemps test Neurological: Speech clear, no gross sensory deficit Has patient had previous pain injection?: Yes Percent improvement in pain since last injection: 75 to 80% Conservative treatment options previously tried: Home exercise plan Length of treatment: Longer than 12 weeks Meds Home Medications and Allergies Home Medications ?Medication ?Instructions ?Recorded ?Confirmed ?Type cetirizine 10 mg tablet 10 mg PO DAILY Allergy sympt oms 04/14/21 01/19/25 Rx #60 tabs ketotifen fumarate 0.025 % (0.035 See Rx Instructions .Route 01/14/23 01/19/25 Rx %) eye drops .COMPLEX #5 mL estradiol 0.01% (0.1 mg/gram) See Rx Instructions vagi nal 02/24/24 01/19/25 Rx vaginal cream .COMPLEX #42.5 grams oxybutynin chloride 10 mg 10 mg PO DAILY #90 tabs 03/1001/19/25 Rx tablet,extended release 24 hr lisinopril 2.5 mg tablet See Rx Instructions .Route 1 07/19/23 01/19/25 Rx .COMPLEX #90 tabs nystatin 100,000 unit/gram topical See Rx Instructions .Route 06/08/24 01/19/25 Rx powder ([facility]) .COMPLEX #60 grams nitroglycerin 0.4 mg sublingual 0.4 mg sublingual Q5M PRN chest 07/01/24 01/19/25 Rx tablet pain #20 tabs ipratropium 0.5 mg-albuterol 3 mg 3 ml inhalation QID PRN shortness 07/06/24 01/19/25 Rx (2.5 mg base)/3 mL nebulization of breath or wheezing #90 mL soln metformin 1,000 mg tablet See Rx Instructions .Route 0 08/16/24 01/19/25 Rx .COMPLEX #180 tabs potassium chloride 20 mEq See Rx Instructions .Route 0 08/16/24 01/19/25 Rx tablet,extended release(part/cryst) .COMPLEX #90 tabs alendronate 70 mg tablet See Rx Instructions .Route 0 09/04/24 01/19/25 Rx .COMPLEX #14 tabs furosemide 80 mg tablet 80 mg PO DAILY #90 tabs 08/1601/19/25 Rx clopidogrel 75 mg tablet 75 mg PO DAILY Blood thinner #90 09/10/24 01/19/25 Rx tabs hydroxyzine pamoate 25 mg capsule 25 mg PO HS SLEEP #9 0 caps 09/10/24 01/19/25 Rx ferrous sulfate 325 mg (65 mg 325 mg PO DAILY #30 tabs 09/15/24 01/19/25 Rx iron) tablet fluticasone propionate 50 See Rx Instructions .Route 0 09/23/24 01/19/25 Rx mcg/actuation nasal .COMPLEX #16 caps spray,suspension ranolazine 500 mg tablet,extended 500 mg PO BID #60 ta bs 10/05/24 01/19/25 Rx release,12 hr omeprazole 40 mg capsule,delayed 40 mg PO DAILY #30 ca ps 10/16/24 01/19/25 Rx release albuterol sulfate 90 mcg/actuation 2 inh inhalation Q6 HP PRN 10/19/24 01/19/25 Rx aerosol inhaler Shortness Of Breath #8.5 gra ms metoprolol succinate 25 mg 12.5 mg (1/2 x 25 mg) PO DA [place] #90 10/19/24 01/19/25 Rx tablet,extended release 24 hr tabs rimegepant 75 mg disintegrating 75 mg PO DAILYP PRN Mi graine 10/19/24 01/19/25 Rx tablet Headache #10 tabs fluticasone 500 mcg-salmeterol 50 1 inh inhalation BID 90 days #180 10/20/24 01/19/25 Rx mcg/dose blistr powdr for ea inhalation montelukast 10 mg tablet See Rx Instructions .Route 0 10/20/24 01/19/25 Rx .COMPLEX #90 tabs ropinirole 1 mg tablet 1 mg PO DAILY #60 tabs 10/2001/19/25 Rx baclofen 10 mg tablet 10 mg PO TID #270 tabs 10/2601/19/25 Rx galcanezumab-gnlm 120 mg/mL 120 mg SQ QMONTH Migraine #1 mL 10/26/24 01/19/25 Rx subcutaneous pen injector (Emgality Pen) colestipol 1 gram tablet See Rx Instructions .Route 0 10/28/24 01/19/25 Rx .COMPLEX #90 tabs atorvastatin 80 mg tablet (Lipitor) 80 mg PO DAILY #30 tabs 10/29/24 01/19/25 Rx topiramate 50 mg tablet (Topamax) 50 mg PO HS #30 tabs 10/29/24 01/19/25 Rx semaglutide 2 mg/dose (8 mg/3 mL) 2 mg (0.75 mL) SQ WE EKLY #3 mL 11/02/24 01/19/25 Rx subcutaneous pen injector (Ozempic) cariprazine 1.5 mg capsule See Rx Instructions .Route 11/19/24 01/19/25 Rx (Vraylar) .COMPLEX #30 caps magnesium oxide 400 mg PO BID #60 tabs 12/1701/19/25 Rx quetiapine 50 mg tablet 50 mg PO HS #30 tabs 12/24/ 5 01/19/25 Rx venlafaxine 37.5 mg 75 mg (2 x 37.5 mg) PO DAILY #30 12/24/24 01/19/25 Rx capsule,extended release 24 hr caps (Effexor XR) hydrocodone 5 mg-acetaminophen 325 1 tab PO BID PRN pa in #60 tabs 01/06/25 01/19/25 Rx mg tablet New Prescriptions to Start Prescriptions: Allergies Allergy/AdvReac Type Severity Reaction Status Date / Time milk AdvReac Mild Nausea Verified 01/19/25 09:51 Assessment and Plan *Assessment and plan (1) Cervical spondylosis: Status: Acute Category: Medical Code(s): M47.812 - Spondylosis without myelopathy or radiculopathy, cervical region (2) Degenerative disc disease, cervical: Status: Chronic Category: Medical Code(s): M50.30 - Other cervical disc degeneration, unspecified cervical region Plan Patient did have a successful second cervical medial branch block and I did review with her regarding the cervical RFA. She did have 75 to 80% improvement lasting at least a few hours following this injection with improved function and decreased pain. Risk and benefits were discussed with patient and she would like to proceed forward with this plan of care. Patient did have limited range of motion of her lumbar spine during today's visit with a positive Kemps test. She would like to proceed forward with the cervical RFA. Patient is currently on blood thinners written by Dr. Gonzales's office. We will reach out to them to confirm she can stop this medication prior to this procedure. We will plan on submitting for the right side first and she was counseled that we do break it apart between the right and left due to the increased pain of the cervical RFA. Patient acknowledges understanding agrees with plan of care. Patient has continued at home stretching and exercise for longer than 12 weeks with no additional changes.Patient has failed oral medications, heat and ice, topicals. We will schedule her for her cervical RFA right sided C5-C6 and C6-C7 under fluoroscopy. We will plan on submitting for the left-sided RFA following this procedure. Patient did have very minimal pain while this prior injection was still working for the few hours. Patient has been instructed to contact the clinic with any concerns before the next appointment. Dr. Schmitt has reviewed this note and agrees with this plan of care. This note was dictated using voice recognition software and make contain errors or omissions. All injections are used with Lidocaine, Bupivacaine and dexamethasone unless diagnostic in which no steroids are used. Occasionally urine drug screen is needed to verify patient's compliance with our office pain contract. This is ordered based off specific treatments related to chronic pain with the potential to abuse certain medications.
--- OUTSIDE RECORDS SUMMARY | 2025-01-19 13:59 | XMS_ITS | Clinical Summary ---
[facility] Address [address] [place] [address] Care Team Providers Care Quantitative Equity Head Name Role Phone Provider, No Known Primary Care Provider Unavail able Medications * This document contains information received from the source organization and may not represent a complete record from that organization. No known medications Active Problems No known active problems Social History Tobacco Use Types Packs/Day Years Used Date Smoking Tobacco: Never Assessed Abuse Screen Answer Date Recorded Unsafe at Home or Work/School Not on file Feels Threatened by Someone? Not on file 05/2023 Does Anyone Keep You from Co ntacting Others or Doint Things Outside the Home? Not on file 03/28/2023 Physical Sign of Abuse Present Not on file 1 Housing Stability Answer Date Recorded Current Living Arrangements Not on file 03/17 Potentially Unsafe Housing Conditions Not on savi e 03/28/2023 Family and Community Support Answer Shahbaz e Recorded Help with Day-to-Day Activities Not on file 03/28/2023 Lonely or Isolated Not on file 03/28/2023 Employment Answer Date Recorded Do you want help finding or keeping work or a frank b? Not on file 03/28/2023 Disabilities Answer Date Recorded Concentrating, Remembering, or Making Decisions Difficulty Not on file 03/28/2023 Doing Errands Independently Difficulty Not on fi le 03/28/2023 Education Answer Date Recorded Help with school or training? Not on file Preferred Language Not on file 03/28/2023 Comments Unknown Sex and Gender Information Value Date Recorded Sex Assigned at Not on file Legal Sex Female 2:42 PM EDT Gender Identity Not on file Sexual Orientation Not on file Plan of Treatment Health Maintenance Due Date Last Done Comments Annual Gynecologic Pelvic and Breast Exam 1961 TDAP/TD VACCINES (1 - Tdap) 1980 MAMMOGRAM 2001 COLOGUARD 2006 COLON CANCER SCREENING 5 YEAR SIGMOIDOSCOPY 2006 COLONOSCOPY [address] CANCER SCREENING 2006 CT COLONOGRAPHY 2006 FECAL OCCULT BLOOD TEST 2006 FIT Testing (1 year) 2006 Pneumococcal Vaccine 50+ (1 of 1 - PCV) 12/03/2011 ZOSTER VACCINE (1 of 2) 12/03/2011 ANNUAL PHYSICAL 06/23/2018 HEPATITIS C SCREENING 06/23/2018 COVID-19 Vaccine ( - 2023- season) 2024 INFLUENZA VACCINE 03/17/2025 Care Teams Quantitative Equity Head Relationship Specialty Start Date End Date Provider, No Known [facility] [place] [address] PCP - General 06/23/18
== END 2025-01-19 23:59 | disposition home or self-care (01) ==
LOC: SC.PAIN 13:46
PROVIDERS: PCP Nurse Practitioner Family; Visit Provider Nurse Practitioner Family
DX: M47.812 Spondylosis without myelopathy or radiculopathy, cervical region (principal); M50.30 Other cervical disc degeneration, unspecified cervical region; Z79.899 Other long term (current) drug therapy
CPT/HCPCS: 99212; G0463

== ENCOUNTER 2025-02-23 08:34 | Day surgery (SDC) | payer MEDICARE, SELFPAY ==
[2025-02-23 08:45] VITALS: BP 102/60; PULSE 83; RESP 18; O2SAT 97; BMI 22.1
[2025-02-23] MEDS: DEXAMETHASONE 10MG/ML 1ML VIAL 10 MG (09:07)
[2025-02-23] MEDS: IOPAMIDOL-200 (41%);10ML VIAL 2 ML IV (09:09)
--- NOTE | 2025-02-23 09:09 | EXP.PAIN.PRO ---
Procedure Date: 02/23/25 Time: 08:50 Anesthesiologist:: Dennis Montemayor CRNA Complications:: None Pre-procedure Diagnosis:: Cervical spine multilevels. Cervical radiculopathy. Cervical spondylosis. Multilevel cervical facet arthropathy. Post-procedure Diagnosis:: Same Indications for Procedure:: Patient is a very pleasant 64-year-old female who comes our clinic today for right C5-6, C6-7 cervical radiofrequency ablation. Patient describes posterior neck pain as constant, dull, aching. She is having difficulty with flexion, extension, left and right rotation of the cervical spine. She responded well to cervical medial branch blocks at same level. Procedure Details:: Informed consent was obtained and the risk and benefits of the procedure was explained to the patient. Patient was placed prone on the procedure table. The patient was prepped and draped in sterile fashion. C-arm fluoroscopy was used to view the lumbar spine. The skin and subcutaneous tissues were anesthetized using lidocaine. I placed 20-gauge RF needles into the facet joints of C5- C6 and C6-C7 levels on the right side. We underwent sensory stimulation. There is good sensory stimulation at 0.8 V. We underwent motor stimulation. There is no motor stimulation at 2.5 V. We then anesthetized these levels with lidocaine and dexamethasone. I used a total of 5 mg of dexamethasone for both levels. I then burned both levels of C5-C6 and C6-C7 facet joint/medial branches on the right side for 4 minutes at 80 ?C. Patient tolerated the procedure well with no complication. Plan and Disposition:: Patient was discharged without incident.
[2025-02-23 09:13] VITALS: BP 128/76; PULSE 80; RESP 18; O2SAT 99
[2025-02-23 09:15] VITALS: BP 94/62; PULSE 78; RESP 18; O2SAT 100
[2025-02-23] MEDS: LIDOCAINE 1% 5ML PF VIAL 5 ML (09:15)
[2025-02-23] MEDS: BUPIVACAINE 0.25% 10ML INJ 25 MG IJ (09:15)
[2025-02-23 09:17] VITALS: BP 94/62; PULSE 78; RESP 18; O2SAT 100
== END 2025-02-23 09:13 | disposition home or self-care (01) ==
PROVIDERS: PCP Nurse Practitioner Family; Visit Provider Nurse Anesthetist, Certified Registered
DX: I11.9 Hypertensive heart disease without heart failure; F32.9 Major depressive disorder, single episode, unspecified; J45.30 Mild persistent asthma, uncomplicated; G43.909 Migraine, unspecified, not intractable, without status migrainosus; Z95.5 Presence of coronary angioplasty implant and graft; Z87.891 Personal history of nicotine dependence; Z79.51 Long term (current) use of inhaled steroids; Z79.899 Other long term (current) drug therapy; M47.812 Spondylosis without myelopathy or radiculopathy, cervical region
CPT/HCPCS: 64633; 64634; J0665; J1100; J2003; Q9966

== ENCOUNTER 2025-03-17 09:49 | Outpatient (CLI) | payer MEDICARE, SELFPAY ==
--- OUTSIDE RECORDS SUMMARY | 2025-03-17 10:11 | XMS_ITS | Clinical Summary ---
[facility] Address [address] [place] [id number] Care Team Providers Care Preschool Substitute Teacher Name Role Phone Provider, No Known Primary [...] ANNUAL PHYSICAL 06/23/2018 HEPATITIS C SCREENING 06/23/2018 INFLUENZA VACCINE 01/15/2025 Care Teams Preschool Substitute Teacher Relationship Specialty Start Date End Date Provider, No Known [facility] [place] [address] PCP - General 06/23/18
[2025-03-17] MEDS: ALBUTEROL 0.083% 2.5 MG/3 ML NEB IH (10:26)
--- NOTE | 2025-03-17 10:28 | PC.NURSE ---
Pre and Post Spirometry completed without incident, Albuterol 0.083% given via HHN, per written protocol, Pt tolerated tx well. 6 Minute Walk Test completed on room air.
== END 2025-03-17 23:59 | disposition home or self-care (01) ==
LOC: RT 09:49
PROVIDERS: PCP Nurse Practitioner Family; Visit Provider Internal Medicine Pulmonary Disease
DX: J45.909 Unspecified asthma, uncomplicated (principal); R94.2 Abnormal results of pulmonary function studies
CPT/HCPCS: 94010; 94618

== ENCOUNTER 2025-04-18 18:18 | Emergency (ER) | payer MEDICARE, SELFPAY ==
--- NOTE | 2025-04-18 18:19 | CT_ITS ---
PROCEDURE INFORMATION: Exam: CTA Chest With Contrast Exam date and time: 04/18/2025 7:35 PM Age: 64 years old Clinical indication: Pain; Chest pressure; Additional info: AMS TECHNIQUE: Imaging protocol: Computed tomographic angiography of the chest with contrast. Exam focused on the arteries. 3D rendering (Not supervised by radiologist): MIP and/or 3D reconstructed images were created by the technologist. Radiation optimization: All CT scans at this facility use at least one of these dose optimization techniques: automated exposure control; mA and/or kV adjustment per patient size (includes targeted exams where dose is matched to clinical indication); or iterative reconstruction. Contrast material: ISOVUE; Contrast volume: 70 ml; Contrast route: INTRAVENOUS (IV); COMPARISON: CT ANGIO CHEST PE PROTOCOL 08/15/2022 9:21 AM FINDINGS: Pulmonary arteries: Normal. No pulmonary emboli. Aorta: Unremarkable. No aortic aneurysm. No aortic dissection. Lungs: Unremarkable. No consolidation. No masses. Pleural spaces: Unremarkable. No pneumothorax. No pleural effusion. Heart: Unremarkable. No cardiomegaly. No pericardial effusion. Lymph nodes: Unremarkable. No enlarged lymph nodes. Gallbladder and biliary ducts: Cholecystectomy. Bones/joints: Unremarkable. No acute fracture. Soft tissues: Unremarkable. IMPRESSION: 1. No acute findings. 2. No CTA evidence of pulmonary embolus.
--- NOTE | 2025-04-18 18:19 | CT_ITS ---
PROCEDURE INFORMATION: Exam: CTA Neck With Contrast Exam date and time: 04/18/2025 7:30 PM Age: 64 years old Clinical indication: Stroke-like symptoms; Altered mental status/memory loss; Additional info: Possible stroke TECHNIQUE: Imaging protocol: Computed tomographic angiography of the neck with contrast. Exam focused on the cervical segments of the vasculature. 3D rendering (Not supervised by radiologist): MIP and/or 3D reconstructed images were created by the technologist. Radiation optimization: All CT scans at this facility use at least one of these dose optimization techniques: automated exposure control; mA and/or kV adjustment per patient size (includes targeted exams where dose is matched to clinical indication); or iterative reconstruction. Contrast material: ISOVUE; Contrast volume: 80 ml; Contrast route: INTRAVENOUS (IV); COMPARISON: MR CERVICAL SPINE WO CON 07/06/2021 8:33 AM FINDINGS: Right common carotid artery: No stenosis. No dissection or occlusion. Right internal carotid artery: Mild calcific atherosclerotic disease of the right carotid bulb without stenosis. Right external carotid artery: No occlusion or stenosis of the origin. Left common carotid artery: No stenosis. No dissection or occlusion. Left internal carotid artery: No stenosis of the extracranial segment. No dissection or occlusion. Left external carotid artery: No occlusion or stenosis of the origin. Right vertebral artery: No stenosis. No dissection or occlusion. Left vertebral artery: No stenosis. No dissection or occlusion. Soft tissues: Normal. No significant soft tissue swelling. Bones/joints: Moderate loss of intervertebral disc space with degenerative changes involving C4 through C7. IMPRESSION: No stenosis or occlusion. REFERENCES: NASCET CRITERIA. The degree of stenosis in the cervical segment of the internal carotid artery is based on NASCET criteria. Normal is no stenosis. Mild is less than 50% stenosis. Moderate is 50-69% stenosis. Severe is 70% to 99% stenosis. Total occlusion is no detectable patent lumen.
--- NOTE | 2025-04-18 18:19 | CT_ITS ---
PROCEDURE INFORMATION: Exam: CT Abdomen And Pelvis With Contrast Exam date and time: 04/18/2025 7:36 PM Age: 64 years old Clinical indication: Abdominal pain; Additional info: AMS TECHNIQUE: Imaging protocol: Computed tomography of the abdomen and pelvis with contrast. 3D rendering (Not supervised by radiologist): MIP and/or 3D reconstructed images were created by the technologist. Radiation optimization: All CT scans at this facility use at least one of these dose optimization techniques: automated exposure control; mA and/or kV adjustment per patient size (includes targeted exams where dose is matched to clinical indication); or iterative reconstruction. Contrast material: ISOVUE; Contrast volume: 70 ml; Contrast route: IV; COMPARISON: CT ABDOMEN PELVIS WO CON 12/30/2020 4:24 PM FINDINGS: Tubes, catheters and devices: None noted. Lungs: Lung bases appear clear. Heart: Severe proximal coronary calcifications. No cardiomegaly. No significant pericardial effusion. Liver: Normal. No mass. Gallbladder and biliary ducts: Cholecystectomy. No ductal dilation. Pancreas: Normal. No ductal dilation. Spleen: Normal. No splenomegaly. Adrenal glands: Normal. No mass. Kidneys and ureters: Normal. No hydronephrosis. Stomach and bowel: Gastric bypass. No obstruction. No mucosal thickening. Appendix: No evidence of appendicitis. Intraperitoneal space: Unremarkable. No free air. No significant fluid collection. Retroperitoneal space: No significant retroperitoneal inflammatory changes are noted. Vasculature: Unremarkable. No abdominal aortic aneurysm. Lymph nodes: Unremarkable. No enlarged lymph nodes. Urinary bladder: Unremarkable as visualized. Reproductive: Hysterectomy. Bones/joints: Unremarkable. No acute fracture. Soft tissues: Unremarkable. IMPRESSION: 1. Cholecystectomy. 2. Hysterectomy. 3. Gastric bypass. 4. No acute findings.
--- NOTE | 2025-04-18 18:19 | CT_ITS ---
PROCEDURE INFORMATION: Exam: CT Head Without Contrast Exam date and time: 04/18/2025 7:28 PM Age: 64 years old Clinical indication: Stroke-like symptoms; Altered mental status/memory loss; Additional info: Possible stroke TECHNIQUE: Imaging protocol: Computed tomography of the head without contrast. Radiation optimization: All CT scans at this facility use at least one of these dose optimization techniques: automated exposure control; mA and/or kV adjustment per patient size (includes targeted exams where dose is matched to clinical indication); or iterative reconstruction. Other technique: STROKE PROTOCOL was implemented. COMPARISON: CT HEAD/BRAIN WO CON 12/30/2020 4:20 PM FINDINGS: Brain: There is moderate diffuse cerebral volume loss present. Multiple subcortical and deep hypoattenuating white matter foci are present, likely related to small vessel senescent changes and can also be seen with prior infectious / inflammatory insult, or prior traumatic events. No hyperattenuating foci are identified to suggest acute intracranial hemorrhage. Cerebral ventricles: No ventriculomegaly. Paranasal sinuses: Visualized sinuses are unremarkable. No fluid levels. Mastoid air cells: Visualized mastoid air cells are well aerated. Bones: Unremarkable. No acute fracture. Soft tissues: Unremarkable. IMPRESSION: 1. Multiple subcortical and deep hypoattenuating white matter foci are present, likely related to small vessel senescent changes and can also be seen with prior infectious / inflammatory insult, or prior traumatic events. 2. No hyperattenuating foci are identified to suggest acute intracranial hemorrhage. ASSESSMENT: ASPECTS ([place] Stroke Program Early CT Score) is 10.
--- NOTE | 2025-04-18 18:19 | CT_ITS ---
PROCEDURE INFORMATION: Exam: CTA Head With Contrast, Arteriography Exam date and time: 04/18/2025 7:30 PM Age: 64 years old Clinical indication: Stroke-like symptoms; Altered mental status/memory loss; Additional info: Possible stroke TECHNIQUE: Imaging protocol: Computed tomographic angiography of the head with contrast. Exam focused on the arteries. 3D rendering (Not supervised by radiologist): MIP and/or 3D reconstructed images were created by the technologist. Radiation optimization: All CT scans at this facility use at least one of these dose optimization techniques: automated exposure control; mA and/or kV adjustment per patient size (includes targeted exams where dose is matched to clinical indication); or iterative reconstruction. Contrast material: ISOVUE; Contrast volume: 80 ml; Contrast route: INTRAVENOUS (IV); COMPARISON: CT HEAD/BRAIN WO CON 04/18/2025 7:28 PM FINDINGS: ANTERIOR CIRCULATION: Right internal carotid artery: Mild calcific atherosclerotic disease of the right intracranial ICA without stenosis. Right middle cerebral artery: No occlusion or significant stenosis. No aneurysm. Right anterior cerebral artery: No occlusion or significant stenosis. No aneurysm. Left internal carotid artery: Intracranial segment is patent with no significant stenosis. No aneurysm. Left middle cerebral artery: No occlusion or significant stenosis. No aneurysm. Left anterior cerebral artery: No occlusion or significant stenosis. No aneurysm. POSTERIOR CIRCULATION: Right vertebral artery: No occlusion or significant stenosis. No aneurysm. Left vertebral artery: No occlusion or significant stenosis. No aneurysm. Basilar artery: No occlusion or significant stenosis. No aneurysm. Right posterior cerebral artery: No occlusion or significant stenosis. No aneurysm. Left posterior cerebral artery: Diminutive left P1 segment with enlarged left posterior communicating. Brain: No definite mass, mass effect, or midline shift. Cerebral ventricles: No ventriculomegaly. Bones/joints: Unremarkable. No acute fracture. Soft tissues: Unremarkable. IMPRESSION: No large vessel stenosis or occlusion.
[2025-04-18 18:20] VITALS: BP 127/85; PULSE 86; RESP 18; TEMP 36.6; O2SAT 96; BMI 24.7
--- NOTE | 2025-04-18 18:20 | PC.NURSE ---
Patients FSBS is 130.
--- NOTE | 2025-04-18 18:22 | [facility]H.EDGENADL ---
Discharge Plan Disposition Patient Disposition: Xfer Other Prescriptions Prescriptions: No Action nitroglycerin 0.4 mg tablet, sublingual 0.4 mg sublingual Q5M PRN (Reason: chest pain) Qty: 20 0RF Rx Instructions: do not exceed 3 doses per episode ropinirole 2 mg tablet 2 mg PO HS Qty: 90 3RF Rx Instructions: administer 1-3 hours before bedtime dicyclomine 20 mg tablet 20 mg PO BID Qty: 60 3RF Vraylar 1.5 mg capsule See Rx Instructions .ROUTE .COMPLEX Qty: 30 3RF Dose Instruction: TAKE 1 CAPSULE BY MOUTH ONCE DAILY Rx Instructions: TAKE 1 CAPSULE BY MOUTH ONCE DAILY quetiapine 50 mg tablet 50 mg PO HS Qty: 30 2RF hydroxyzine pamoate 25 mg capsule 25 mg PO TID Qty: 90 2RF Emgality Pen 120 mg/mL pen injector 120 mg SQ QMONTH Qty: 1 6RF rimegepant 75 mg tablet,disintegrating 75 mg PO DAILYP MDD 75 mg PRN (Reason: Migraine Headache) Qty: 10 5RF Rx Instructions: TAKE ONE TABLET BY MOUTH NEEDED FOR MIGRAINE clobetasol 0.05 % ointment topical famotidine 40 mg tablet 40 mg PO HS Qty: 30 3RF cetirizine 10 mg tablet 10 mg PO DAILY Qty: 60 0RF ketotifen fumarate 0.025 % (0.035 %) drops See Rx Instructions .ROUTE .COMPLEX Qty: 5 2RF Dose Instruction: USE 1 DROP IN EACH EYE TWICE A DAY NEEDED FOR ALLERGY SYMPTOMS Rx Instructions: USE 1 DROP IN EACH EYE TWICE A DAY NEEDED FOR ALLERGY SYMPTOMS lisinopril 2.5 mg tablet See Rx Instructions .ROUTE .COMPLEX Qty: 90 0RF Dose Instruction: TAKE 1 TABLET BY MOUTH ONCE DAILY Rx Instructions: TAKE 1 TABLET BY MOUTH ONCE DAILY nystatin [Nyamyc] 100,000 unit/gram powder See Rx Instructions .ROUTE .COMPLEX Qty: 60 0RF Dose Instruction: APPLY TO AFFECTED AREA TWICE A DAY NEEDED FOR YEAST Rx Instructions: APPLY TO AFFECTED AREA TWICE A DAY NEEDED FOR YEAST ipratropium-albuterol 0.5 mg-3 mg(2.5 mg base)/3 mL solution for nebulization 3 ml IH QID PRN (Reason: shortness of breath or wheezing) Qty: 90 6RF potassium chloride 20 mEq tablet,ER particles/crystals See Rx Instructions .ROUTE .COMPLEX Qty: 90 3RF Dose Instruction: TAKE 1 TABLET BY MOUTH ONCE DAILY Rx Instructions: TAKE 1 TABLET BY MOUTH ONCE DAILY metformin 1,000 mg tablet See Rx Instructions .ROUTE .COMPLEX Qty: 180 3RF Dose Instruction: TAKE 1 TABLET BY MOUTH TWICE DAILY FOR DIABETES Rx Instructions: TAKE 1 TABLET BY MOUTH TWICE DAILY FOR DIABETES furosemide 80 mg tablet 80 mg PO DAILY Qty: 90 2RF clopidogrel 75 mg tablet 75 mg PO DAILY Qty: 90 3RF Rx Instructions: TAKE 1 TABLET EVERY DAY ferrous sulfate 325 mg (65 mg iron) tablet 325 mg PO DAILY Qty: 30 0RF fluticasone propionate 50 mcg/actuation spray,suspension See Rx Instructions .ROUTE .COMPLEX Qty: 16 4RF Dose Instruction: USE 1 SPRAY IN EACH NOSTRIL ONCE A DAY Rx Instructions: USE 1 SPRAY IN EACH NOSTRIL ONCE A DAY ranolazine 500 mg tablet extended release 12 hr 500 mg PO BID Qty: 60 5RF albuterol sulfate 90 mcg/actuation HFA aerosol inhaler 2 inh IH Q6HP PRN (Reason: Shortness Of Breath) Qty: 8.5 6RF Rx Instructions: --SHAKE WELL-- AND INHALE 2 PUFFS EVERY 6 HOURS WITH SPACER metoprolol succinate 25 mg tablet extended release 24 hr 12.5 mg PO DAILY Qty: 90 1RF montelukast 10 mg tablet See Rx Instructions .ROUTE .COMPLEX Qty: 90 3RF Dose Instruction: TAKE 1 TABLET AT BEDTIME FOR ALLERGIES SYMPTOMS Rx Instructions: TAKE 1 TABLET AT BEDTIME FOR ALLERGIES SYMPTOMS fluticasone propion-salmeterol 500-50 mcg/dose blister with device 1 inh inhalation BID 90 Days Qty: 180 2RF colestipol 1 gram tablet See Rx Instructions .ROUTE .COMPLEX Qty: 90 2RF Dose Instruction: TAKE 1 TABLET BY MOUTH ONCE DAILY FOR CHOLESTEROL Rx Instructions: TAKE 1 TABLET BY MOUTH ONCE DAILY FOR CHOLESTEROL atorvastatin [Lipitor] 80 mg tablet 80 mg PO DAILY Qty: 30 11RF magnesium oxide 400 mg magnesium tablet 400 mg PO BID Qty: 60 3RF omeprazole 40 mg capsule,delayed release(DR/EC) See Rx Instructions .ROUTE .COMPLEX Qty: 90 3RF Dose Instruction: TAKE ONE CAPSULE BY MOUTH EVERY DAY Rx Instructions: TAKE ONE CAPSULE BY MOUTH EVERY DAY oxybutynin chloride 10 mg tablet extended release 24hr 10 mg PO DAILY Qty: 90 3RF Ozempic 2 mg/dose (8 mg/3 mL) pen injector See Rx Instructions .ROUTE .COMPLEX Qty: 3 5RF Dose Instruction: INJECT 2 MG SUBCUTANEOUSLY ONCE A WEEK Rx Instructions: INJECT 2 MG SUBCUTANEOUSLY ONCE A WEEK venlafaxine [Effexor XR] 37.5 mg capsule,extended release 24hr 75 mg PO DAILY Qty: 30 2RF hydrocodone-acetaminophen 5-325 mg tablet 1 tab PO BID PRN (Reason: pain) Qty: 60 0RF Rx Instructions: Chronic alendronate 70 mg tablet See Rx Instructions .ROUTE .COMPLEX Qty: 14 3RF Dose Instruction: TAKE ONE (1) TABLET BY MOUTH EVERY WEEK FOR OSTEOPOROSIS Rx Instructions: TAKE ONE (1) TABLET BY MOUTH EVERY WEEK FOR OSTEOPOROSIS baclofen 10 mg tablet 10 mg PO TID Qty: 270 0RF Referrals Follow up/Referrals: Tim Lucas APRN [Primary Care Provider, [facility]] - See instructions Clinical Impressions Clinical Impression: Closed fracture of distal end of left femur, AMS (altered mental status) Stand Alone Forms Stand Alone Forms: Transfer Record - ED Instructions Patient Instructions: DI for Altered Mental Status Print Language Print Language: Portuguese Discharge ED Provider: Sanju Mai General Adult HPI General Chief complaint: Altered Mental Status Stated complaint: Stroke alert Time Seen by Provider: 04/18/25 18:19 Mode of Arrival: EMS Source of Information: EMS Limitations: No Limitations History of Present Illness HPI narrative: Parul Leone is a 64-year-old female with a history of diabetes, migraines, irritable syndrome, coronary artery disease, neuropathy, essential tremor, total knee replacement, dysphagia, globus sensation, generalized anxiety disorder, major depressive disorder, restless leg syndrome who presents to the emergency department with EMS for altered mental status and arrives as a stroke alert. Per EMS, patient was at a libertarian last night and reportedly fell but did not hit her head. Family states that she has been normal since then and up to 11 this morning when they last checked on her. They state that since then, she has been confused and altered. EMS states that she was saying that they are touching the left side of her body when they are actually touching the right side of her body. They note that she has been confused and will intermittently answer questions appropriately. They report slurring of her speech. Per EMS, last known normal was at 11 this morning as discussed above. Patient takes Plavix per medications sent with her. Related Data Home Medications ?Medication ?Instructions ?Recorded ?Confirmed clobetasol 0.05 % topical ointment topical 03/30/25 04/12/25 Previous Rx's ?Medication ?Instructions ?Recorded cetirizine 10 mg tablet 10 mg PO DAILY Allergy symptoms 04/14/21 #60 tabs ketotifen fumarate 0.025 % (0.035 See Rx Instructions .Route 01/14/23 %) eye drops .COMPLEX #5 mL lisinopril 2.5 mg tablet See Rx Instructions .Route 05/18/24 .COMPLEX #90 tabs nystatin 100,000 unit/gram topical See Rx Instructions .Route 06/08/24 powder ([facility]) .COMPLEX #60 grams nitroglycerin 0.4 mg sublingual 0.4 mg sublingual Q5M PRN chest 07/01/24 tablet pain #20 tabs ipratropium 0.5 mg-albuterol 3 mg 3 ml inhalation QID PRN shortness 07/06/24 (2.5 mg base)/3 mL nebulization of breath or wheezing #90 mL soln metformin 1,000 mg tablet See Rx Instructions .Route 08/16/24 .COMPLEX #180 tabs potassium chloride 20 mEq See Rx Instructions .Route 08/16/24 tablet,extended release(part/cryst) .COMPLEX #90 tabs furosemide 80 mg tablet 80 mg PO DAILY #90 tabs 09/08/24 clopidogrel 75 mg tablet 75 mg PO DAILY Blood thinner #90 09/10/24 tabs ferrous sulfate 325 mg (65 mg 325 mg PO DAILY #30 tabs 09/15/24 iron) tablet fluticasone propionate 50 See Rx Instructions .Route 09/23/24 mcg/actuation nasal .COMPLEX #16 caps spray,suspension ranolazine 500 mg tablet,extended 500 mg PO BID #60 tabs 10/05/24 release,12 hr albuterol sulfate 90 mcg/actuation 2 inh inhalation Q6HP PRN 10/19/24 aerosol inhaler Shortness Of Breath #8.5 grams metoprolol succinate 25 mg 12.5 mg (1/2 x 25 mg) PO DAILY #90 10/19/24 tablet,extended release 24 hr tabs fluticasone 500 mcg-salmeterol 50 1 inh inhalation BID 90 days #180 10/20/24 mcg/dose blistr powdr for ea inhalation montelukast 10 mg tablet See Rx Instructions .Route 10/20/24 .COMPLEX #90 tabs colestipol 1 gram tablet See Rx Instructions .Route 10/28/24 .COMPLEX #90 tabs atorvastatin 80 mg tablet (Lipitor) 80 mg PO DAILY #30 tabs 10/29/24 magnesium oxide 400 mg PO BID #60 tabs 12/17/24 omeprazole 40 mg capsule,delayed See Rx Instructions .Route 01/29/25 release .COMPLEX #90 caps oxybutynin chloride 10 mg 10 mg PO DAILY #90 tabs 03/01/25 tablet,extended release 24 hr galcanezumab-gnlm 120 mg/mL 120 mg SQ QMONTH Migraine #1 mL 03/02/25 subcutaneous pen injector (Emgality Pen) rimegepant 75 mg disintegrating 75 mg PO DAILYP PRN Migraine 03/02/25 tablet Headache #10 tabs dicyclomine 20 mg tablet 20 mg PO BID #60 tabs 03/10/25 ropinirole 2 mg tablet 2 mg PO HS #90 tabs 03/10/25 semaglutide 2 mg/dose (8 mg/3 mL) See Rx Instructions .Route 03/15/25 subcutaneous pen injector (Ozempic) .COMPLEX #3 mL cariprazine 1.5 mg capsule See Rx Instructions .Route 03/16/25 (Vraylar) .COMPLEX #30 caps hydroxyzine pamoate 25 mg capsule 25 mg PO TID anxiety #90 caps 03/16/25 quetiapine 50 mg tablet 50 mg PO HS #30 tabs 03/16/25 venlafaxine 37.5 mg 75 mg (2 x 37.5 mg) PO DAILY #30 03/22/25 capsule,extended release 24 hr caps (Effexor XR) famotidine 40 mg tablet 40 mg PO HS #30 tabs 03/30/25 hydrocodone 5 mg-acetaminophen 325 1 tab PO BID PRN pain #60 tabs 04/06/25 mg tablet alendronate 70 mg tablet See Rx Instructions .Route 04/16/25 .COMPLEX #14 tabs baclofen 10 mg tablet 10 mg PO TID #270 tabs 04/16/25 Allergies Allergy/AdvReac Type Severity Reaction Status Date / Time milk AdvReac Mild Nausea Verified 04/12/25 10:37 [facility] Disclaimer: The information contained in this section may have been updated after the patient was seen, as this information can be updated by other users. Medical History Vocal cord dysfunction Dysphagia Globus sensation Hoarseness of voice Pre-op evaluation Dyspnea on exertion Abnormal findings on diagnostic imaging of heart and coronary circulation Major depressive disorder Migraine headache Chronic pain Dyspnea Bilateral hearing loss Bilateral tinnitus Hearing loss Asthma Allergic rhinitis Sleep disorder breathing Seasonal allergies Chronic cough Asthma exacerbation Mild persistent asthma Noise-induced hearing loss of both ears Tinnitus of right ear Tinnitus of left ear Abnormal stress test Obesity 29 pound weight loss since October, taking Ozempic Encounter for pre-operative cardiovascular clearance Chest pain Dyspnea Sinus tachycardia Abnormal electrocardiography Swelling of left lower extremity Preoperative clearance Dyspnea Chest pain HHD (hypertensive heart disease) Surgical History History of tubal ligation X2 -had this done; and 3 years later got -and had this done again History of cholecystectomy History of hysterectomy History of heart artery stent History of cardiac cath History of arthroscopic knee surgery Family History Other Coronary artery disease Diabetes Hyperlipidemia Hypertension No significant family history Thyroid disorder Social History Smoking Status: Unknown if ever smoked second hand exposure: No alcohol intake: never counseling given: No substance use type: denies use counseling given: No current occupational status: other Travel in the last 8 weeks?: None adopted: No caregiver/support person: No foster care: No household members: family housing: house lives independently: No marital status: number of children: 2 number of grandchildren: 4 education level: college current occupational exposures/hazards: No Hx Recent Travel: No sexually active: No caffeine: Yes physical activity: none abelardo/mormonism: None special abelardo needs: No working smoke detector in home: Yes fire extinguisher in home: No carbon monox detector in home: No firearms in home: No do you feel safe at home: Yes victim of physical abuse: No victim of emotional abuse: No victim of sexual abuse: No would you like helpful sources: No Have you lived/traveled outside [place] in past 30 days?: No Contact w/someone who lives/traveled outside [place] past 30 days?: No Exposure to someone with infectious disease in past 14 days?: No Do you have a fever (greater than 100.4 F or 38 C)?: No Have you tested positive for COVID-19?: No Exposed to someone with COVID-19 in past 14 days?: No Do you have a sore throat?: No Do you have a cough?: No Do you have any weakness?: No Do you have any diarrhea?: No Are you experiencing any unusual bleeding?: No Do you have any muscle aches/pain?: No Do you have any abdominal pain?: No Are you experiencing loss of taste or smell?: No Other Medical History Have you received the Flu Vaccine for this season: No Have you received the Pneumonia Vaccine: Yes ROS Obtained: Yes Systems reviewed as appropriate & no additional complaints except as documented Physical Exam General General appearance: alert and in no apparent distress Comment: Somnolent but will arouse with verbal stimuli Head Head exam: atraumatic Eye Eye exam: Present normal appearance and PERRL (2 mm and reactive bilaterally) ENT ENT exam: Present normal external ear exam Neck Neck exam: Present normal inspection Chest Chest inspection: Present symmetric chest wall rise Respiratory Respiratory exam: Present normal lung sounds bilaterally; Absent respiratory distress, wheezes or stridor Cardiovascular Cardiovascular exam: Present regular rate and normal rhythm Abdominal Exam Abdominal exam: Present soft and tenderness (Generalized); Absent guarding Extremities Exam Extremities exam: Present normal inspection and other (Status post bilateral knee replacements with well-healed surgical scars. Tenderness in both knees without swelling) Back Exam Back exam: Present normal inspection Neurological Exam Neurological exam: Present other (See MDM for complete neuroassessment) Skin Skin exam: Present warm and dry Medical Decision Making Medical Records Screening: Per USPSTF and CDC recommendations, given the prevalence of disease in our region, it is our hospital?s policy to screen for HIV and viral Hepatitis for all patients aged 18 and over and those with ongoing risk factors. [place] Inquiry Pt receiving controlled substance: No Vital Signs: 04/18/25 18:20 04/18/25 19:00 04/18/25 19:12 Temperature 97.9 F Temperature Source Oral Pulse Rate 89 89 Pulse Rate [Radial] 86 Respiratory Rate 18 22 22 Blood Pressure 136/83 142/82 H Blood Pressure [Right Arm] 127/85 Blood Pressure Mean [Right Arm] 99 Blood Pressure Source [Right Arm] Automatic Cuff Blood Pressure Position [Right Arm] Supine 02 Sat by Pulse Oximetry 96 97 97 Oxygen Delivery Method Room Air 04/18/25 19:30 04/18/25 20:00 Temperature Temperature Source Pulse Rate 87 Pulse Rate [Radial] Respiratory Rate 24 18 Blood Pressure 141/82 H 131/76 Blood Pressure [Right Arm] Blood Pressure Mean [Right Arm] Blood Pressure Source [Right Arm] Blood Pressure Position [Right Arm] 02 Sat by Pulse Oximetry 97 97 Oxygen Delivery Method Lab Data Lab Results 04/18/25 18:20: WBC 12.1 H, RBC 4.49, Hgb 13.6, Hct 40.3, MCV 89.8, MCH 30.3, MCHC 33.7, RDW 12.0, Plt Count 276, MPV 9.6, Neut % (Auto) 79.2, Lymph % (Auto) 11.9, [place] % (Auto) 8.0, Eos % (Auto) 0.5, Baso % (Auto) 0.2, Neut # (Auto) 9.6 H, Lymph # (Auto) 1.4, [place] # (Auto) 1.0, Eos # (Auto) 0.1, Baso # (Auto) 0.0, PT 10.4, INR 0.93, APTT 27.3, Sodium 138, Potassium 4.3, Chloride 100, Carbon Dioxide 28, Anion Gap 14.3, BUN 12, Creatinine 0.70, Estimated Creat Clear 58, Estimated GFR 85, Est GFR ( Amer) 102, Glucose 127 H, Calcium 9.3, Total Bilirubin 1.1, AST 43 H, ALT 38, Alkaline Phosphatase 123, Total Creatine Kinase 226 H, Troponin I < 0.01, C-Reactive Protein 26.5 H, Total Protein 7.5, Albumin 5.2 H, Globulin 2.3, Albumin/Globulin Ratio 2.3 H, Triglycerides 61, Cholesterol 151, LDL Cholesterol Direct 30.62 L, VLDL Cholesterol 12, HDL Cholesterol 91 H, Cholesterol/HDL Ratio 1.7, Lipase 32, Plasma/Serum Alcohol < 10, HCV Ab NORRIS w/Rflx PCR Qn Negative, HIV Ag/Ab Combo Qual Negative 04/18/25 18:44: Urine Color Yellow, Urine Appearance Clear, Urine pH 6.0, Ur Specific [place] 1.010, Urine Protein Negative, Urine Glucose (UA) Negative, Urine Ketones Negative, Urine Blood Negative, Urine Nitrate Negative, Urine Bilirubin Negative, Urine Urobilinogen 0.2, Ur Leukocyte Esterase Trace, Urine RBC None, Urine WBC Occasional, Ur Squamous Epith Cells None, Urine Bacteria Trace, Urine Opiates Screen Positive H, Urine Methadone Screen Negative, Ur Barbituates Screen Negative, Ur Phencyclidine Scrn Negative, Ur Amphetamines Screen Negative, U Benzodiazepines Scrn Negative, Urine Cocaine Screen Negative, U Marijuana (THC) Screen Negative 04/18/25 19:15: VBG pH 7.33, VBG pCO2 44.4, VBG pO2 51.0 H, VBG HCO3 22.8 L, VBG Total CO2 24.2, VBG O2 Saturation 86.5 H, VBG Base Excess -3.1 L, VBG Lactic Acid 1.5 04/18/25 18:20 04/18/25 18:20 Orders (Tests/Meds): ED MEDICATIONS Generic Name Dose Route Start Last Admin Trade Name Freq PRN Reason Stop Dose Admin Sodium Chloride 10 ml 04/18/25 18:19 Sodium Chloride 0.9% 10ml Flush Syringe IV 05/18/25 18:18 NEEDED PRN Maintain IV Site Sodium Chloride 10 ml 04/18/25 18:28 04/18/25 18:29 Sodium Chloride 0.9% 10ml Syr (Rad Only) IV 05/18/25 18:27 10 ml NEEDED PRN Administration Maintain IV Site Discontinued Medications Generic Name Dose Route Start Last Admin Trade Name Freq PRN Reason Stop Dose Admin Iopamidol 150 ml 04/18/25 18:28 04/18/25 18:29 Iopamidol-370 (76%);100ml Bottle IV 04/18/25 18:29 150 ml ONCE ONE Administration Naloxone HCl 1 mg 04/18/25 18:22 04/18/25 18:57 Naloxone 2mg/2ml Syringe IV 04/18/25 18:23 1 mg ONCE ONE Administration Naloxone HCl 1 mg 04/18/25 18:59 04/18/25 19:04 Naloxone 2mg/2ml Syringe IV 04/18/25 19:00 1 mg ONCE ONE Administration Sodium Chloride 100 ml 04/18/25 18:28 04/18/25 18:29 0.9 % Sodium Chloride 50 Ml Vial IV 04/18/25 18:29 100 ml ONCE ONE Administration ORDERS Category Date Time Status CT abdomen pelvis w con Stat Cat Scan 04/18/25 18:[address] angio chest PE protocol Stat Cat Scan 04/18/25 18:[address] angio head Stat Cat Scan 04/18/25 18:[address] angio neck Stat Cat Scan 04/18/25 18:[address] head/brain wo con Stat Cat Scan 04/18/25 18:19 Completed Knee XR left 2 views [XR knee LT 2V] Stat Exams 04/18/25 18:24 Completed Knee XR right 2 views [XR knee RT 2V] Stat Exams 04/18/25 18:24 Completed Activated Partial Thrombo Time Stat Lab 04/18/25 18:20 Completed Ammonia Stat Lab 04/18/25 18:19 Ordered CK [Creatine Kinase] Stat Lab 04/18/25 18:20 Completed CRP [C-Reactive Protein] Stat Lab 04/18/25 18:20 Completed Complete Blood Count Auto Diff Stat Lab 04/18/25 18:20 Completed Comprehensive Metabolic Panel Stat Lab 04/18/25 18:20 Completed Drug Screen,Urine Stat Lab 04/18/25 18:44 Completed Ethyl Alcohol Stat Lab 04/18/25 18:20 Completed HIV Combo Stat Lab 04/18/25 18:20 Completed Hepatitis C Ab Qual. W/ RFX Stat Lab 04/18/25 18:20 Completed Lipase Stat Lab 04/18/25 18:20 Completed Lipid Panel Stat Lab 04/18/25 18:20 Completed Prothrombin Time INR Stat Lab 04/18/25 18:20 Completed Troponin I Q3H Lab 04/18/25 21:30 Ordered Troponin I Q3H Lab 04/19/25 00:30 Ordered Troponin I Stat Lab 04/18/25 18:20 Completed Urinalysis and Microscopic Stat Lab 04/18/25 18:44 Completed Blood Culture Stat Micro 04/18/25 19:08 Received VBG [Venous Blood Gas] Stat RT 04/18/25 19:15 Completed ECG Data Tracing #1: I reviewed this ECG and interpreted as documented below: NSR. No ST elevation or depression. QTc normal at 395 Medical Decision Narrative: Parul Leone is a 64-year-old female with a history of diabetes, migraines, irritable syndrome, coronary artery disease, neuropathy, essential tremor, total knee replacement, dysphagia, globus sensation, generalized anxiety disorder, major depressive disorder, restless leg syndrome who presents to the emergency department with EMS for altered mental status and arrives as a stroke alert. Per EMS, patient was at a libertarian last night and reportedly fell but did not hit her head. Family states that she has been normal since then and up to 11 this morning when they last checked on her. They state that since then, she has been confused and altered. EMS states that she was saying that they are touching the left side of her body when they are actually touching the right side of her body. They note that she has been confused and will intermittently answer questions appropriately. They report slurring of her speech. Per EMS, last known normal was at 11 this morning as discussed above. Patient takes Plavix per medications sent with her. On arrival, patient is normotensive, heart rate within normal limits, breathing comfortably on room air with appropriate oxygen saturation, afebrile. Physical exam, as stated above, revealed somnolent female who will wake with verbal stimulation. When asked her name, she responds with hi . She does state that both of her knees hurt but is otherwise disoriented. She will intermittently follow commands and is moving all extremities. Beverage Specialist strength is intact and equal bilaterally. Cranial nerves II through XII intact. She was unable to complete cerebellar testing at this time. Pupils are 2 mm and reactive bilaterally. Cardiopulmonary exam is unremarkable without wheezing, rales or rhonchi. It is noted that patient is on various different medications, including [place]. Patient was taken immediately to CT scanner upon arrival after fingerstick blood glucose was within normal range at 127 Differential diagnosis includes, but is not limited to: Stroke, intracranial hemorrhage, polypharmacy, hypoglycemia, sepsis, urinary tract infection, pneumonia, pulmonary embolism, intra-abdominal infection, hyperammonemia, hypercarbia, among others. The most morbid conditions were considered and workup was based on these. Workup in the emergency department is broad and included: CTA of the head and neck, CT head without contrast, CT PE protocol, CT abdomen pelvis with IV contrast, CBC with differential, CMP, EKG, ammonia level, troponin, PTT, CK, CRP, alcohol level, lipase, PT/INR, lipid panel, alcohol level, bilateral knee x-rays, UDS, blood culture x 2, urinalysis, VBG with lactate. Patient was administered 1 mg of naloxone and had some improvement in her mentation and was able to answer questions more appropriately but was still confused. She did state that she took more of her pain medication today than she normally does. Will administer additional [address] imaging of the head and neck were interpreted by me personally. No intracranial hemorrhage, mass or midline shift. There are chronic changes. No large vessel occlusion or significant stenosis. See radiology report for details. No pulmonary embolism or aortic dissection. No acute findings within the abdomen or pelvis. See radiology report for details. Lab work shows a mild leukocytosis 12.1 but no anemia, platelets within normal limits. INR normal at 0.93. VBG unremarkable with pH of 7.33, lactate normal at 1.5. Electrolytes within normal limits. No BEAN. Glucose of 127. AST mildly elevated at 43 but liver enzymes unremarkable nonactionable otherwise. Bilirubin normal at 1.1. CK mildly elevated at 226 but not elevated to the point of rhabdomyolysis. Initial troponin less than 0.01. CRP elevated at 26.5. Lipase normal at 32. Urinalysis without blood or evidence of infection. UDS positive for opiates but otherwise negative. Patient is on [place]. Alcohol level less than 10. On reassessment, patient is alert and complaining of pain to her left knee. She does appear mildly confused at this time and refuses to answer most questions. Patient's nephew and son are at the bedside at this time. They provide additional history. They said that yesterday throughout the night she was out partying and wearing high-heeled boots and ended up falling in a pothole. nephew states that she has been unable to bear weight on her leg since then. She has been laying in bed for most of the day today and will only stand to go to the bedside commode. They did say that she got her morning medications around 10 to 11 AM and last saw her normal at approximately 11 AM. X-ray imaging was interpreted by me personally. Patient does have a comminuted incomplete transverse fracture of the distal left femoral metaphysis. See radiology report for details. No acute right knee fractures or dislocations. Given these findings, I discussed patient's case with our orthopedic surgeon, Dr. Collier who stated the patient will need transfer for higher level of care as she will need revision surgery. Will discuss patient's case with [facility] for transfer. I did discuss patient's case with Dr. Funez at the [facility] transfer center who accepted the patient for transfer to the emergency [facility] emergency department. I discussed this with family and they were in agreement with this plan. Will arrange for ground transport for patient at this time. Critical Care Critical Care Time Critical Care Time: Yes Attestation: On 04/18/25, the high probability of a clinically significant, sudden or life threatening deterioration of the following system(s) required my full and direct attention, intervention and personal management. The time I documented below is in addition to time spent performing reported procedures but includes the following listed in this critical care notation. Total Time Total Critical Care Time: 35
--- NOTE | 2025-04-18 18:24 | XR_ITS ---
PROCEDURE INFORMATION: Exam: XR Left Knee Exam date and time: 04/18/2025 6:38 PM Age: 64 years old Clinical indication: Pain; Knee; Left; Additional info: AMS, pain in knees TECHNIQUE: Imaging protocol: Radiologic exam of the left knee. Views: 1 or 2 views. COMPARISON: US - CA VENOUS DOPPLER LE 07/18/2022 3:04 PM FINDINGS: Bones/joints: Comminuted complete transverse fracture of the distal left femoral metaphysis. Total knee arthroplasty in place. Soft tissues: Normal. IMPRESSION: Comminuted complete transverse fracture of the distal left femoral metaphysis.
--- NOTE | 2025-04-18 18:24 | XR_ITS ---
PROCEDURE INFORMATION: Exam: XR Right Knee Exam date and time: 04/18/2025 6:38 PM Age: 64 years old Clinical indication: Pain; Knee; Right; Additional info: AMS, right knee pain TECHNIQUE: Imaging protocol: Radiologic exam of the right knee. Views: 1 or 2 views. COMPARISON: US - CA VENOUS DOPPLER LE RT 01/12/2020 10:21 AM FINDINGS: Bones/joints: Right total knee arthroplasty. Soft tissues: Normal. IMPRESSION: Right total knee arthroplasty.
[2025-04-18 18:29] LABS: Hematocrit 40.3 % (37.0-47.0); Hemoglobin 13.6 g/dL (12.2-16.2); Immature Granulocytes % 0.2 %; Mean Corpuscular HGB Conc 33.7 g/dL (31.8-35.4); Mean Corpuscular Hemoglobin 30.3 pg (27.0-31.2); Mean Corpuscular Volume 89.8 fl (81-99); Nucleated Red Blood Cells % 0 %; Platelet Count 276 K/mm3 (142-424); Red Blood Count 4.49 M/mm3 (4.20-5.40); Red Cell Distribution Width-SD 38.7 fL; White Blood Count 12.1 K/mm3 (4.8-10.8)
[2025-04-18] MEDS: IOPAMIDOL-370 (76%);100ML BOTTLE 150 ML IV (18:29)
[2025-04-18] MEDS: 0.9 % SODIUM CHLORIDE 50 ML VIAL 100 ML IV (18:29)
[2025-04-18] MEDS: SODIUM CHLORIDE 0.9% 10ML SYR (RAD ONLY) 10 ML IV (18:29)
--- OUTSIDE RECORDS SUMMARY | 2025-04-18 18:31 | XMS_ITS | Data Portability ---
Author Organization [facility] SELMA [facility] [facility] Address [address] [place] [address] Assessment No assessment recorded. Plan of Treatment [...] Time 04/16/2022 Audiogram completed GONZALO ASTUDILLO [address] [place], [address], [facility] 04/16/2022 10:34:33 Imaging Results [...] Diagnosis SNOMED-CT Code Diagnosis ICD10 Code Diagnosis IMO Codes Diagnosis Note [id number] GONZALO ASTUDILLO [place] [facility] [address] NANI,MISTY E LETICIA FERRARI [address] 04/16/2022 09:56:34 04/16/2022 10:55:04 Sensorineural hearing loss of bilateral ears 493834331 H90.3 Bilateral tinnitus 08740 57323 102 H93.13 Health Concerns Section Related Observation LastModified by Organization Detai ls LastModified Time None Recorded Concern Status LastModified by Organization Details LastModified Time None Recorded Advance Directives Directive None Recorded Payers Insurance Date Sequence Insurance Name Policy Number Policy Fitzgerald Covered Member ID Fitzgerald Member ID Guarantor Name 04/16/2022 1 [employer] (MEDICARE REPLACEMENT/A DVANTAGE - PPO) Parul Leone [id number] Parul Leone OBGyn Episode No OBEpisode recorded.
--- OUTSIDE RECORDS SUMMARY | 2025-04-18 18:31 | XMS_ITS | Data Portability ---
Author Organization [facility] Address 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 The electronic translation of spoken language may permit erroneous or at times nonsensical words of phrases to be inadvertently transcribed; Although I have reviewed the note for such errors, some may still exist. [email or web address] Not available 11/21/2022 14:08:04 04/17/2023 04/17/2023 Care management services and General Behavioral Health Integration (CPT 57414) was provided for at least 20 minutes [...] No suicidal ideation was endorsed. Patient answered n o to all questions related to self-harm. Through the babberly platform, the patient was assigned the Reoccurring Assessment activity template, which includes informational videos, journals, and FAMILIA-2 / FAMILIA-7, PHQ-9*, PDUQp, Oswestry - Lower Back, ORT-OUD. . Patient was not contacted by our clinical support team but provided resources through the babberly platform. The patient s next visit is on 05/02/2023 . [email or web address] Not available 04/17/2023 19:08:04 Plan of Treatment Reminders Order Date Submit Date Provider Last Modified By Organization Details Last Modified Time Details Appointments None recorded. Lab None recorded. Referral None recorded. Procedures cervical radiofreque ncy ablation (PROC) - RFA Cervical Right C3-C5 W/sed rené carlyn 2022 023 [email or web address] Not available 3 09:29:25 medial branch block, cervical (PROC) 2022 023 [email or web address] Not available 3 08:56:10 Surgeries None recorded. Imaging None recorded. Medication Orders None recorded. Patient TargetsNo targets recorded. Patient InstructionsNo instructions recorded. Reason for Referral None Reported. Problems Name Problem SNOMED Code Status Onset Date Resolution Date Notes Provider Name and Address Organization Details Recorded Time Cervical radiculiti s 96018316 Active 2021 LEYDI SALEH MD [address] [place] [address], [phone] , [facility] 2 15:36:26 Cervical spondylosi s without myelopathy 643149140 Active 2021 LEYDI SALEH MD [address] [place] [address], [phone] , [place] [facility] 2 15:36:27 Cervical radiculopa thy 91472229 Active 2021 Michelle Cox null, [place] [facility] 2 13:22:00 Overweight 441053072 Active 2022 nikia jackson null, [place] [facility] 3 07:44:35 Pain disorder with psychologi bruna factor 737356374060 Active 2022 Judah [place] null, [place] [facility] 3 19:07:36 Problem Notes None recorded. Procedures Surgical History Date Name Laterality Status Provider Name and Address Organization Details Recorded Time 03/14/20 Cervical RFA: Posterior (2 Level Unilateral) completed [facility]el [place] [facility] 03/14/2023 15:39:04 02/01/20 23 Diagnostic Cervical MBB: Posterior (2 Level Unilateral) completed Michelle Kenny [place] [facility] 01/31/2023 14:43:49 12/11/19 23 Diagnostic Cervical MBB: Posterior (2 Level Unilateral) completed LEYDI SALEH MD [address] [place] [address], [phone], [place] [facility] 12/10/2022 16:56:34 09/27/19 23 Cervical Epidural Steroid Injection: Interlaminar completed LEYDI SALEH MD [address] [place] [address], [phone], [facility] 09/26/2022 15:59:39 05/25/20 22 Cervical Epidural Steroid Injection: Interlaminar completed LEYDI SALEH MD [address] [place] [address], [phone], [facility] 05/25/2022 16:23:04 02/17/20 22 Cervical Epidural Steroid Injection: Interlaminar completed LEYDI SALEH MD [address] [place] [address], [phone], [facility] 02/19/2022 17:19:48 01/20/20 22 Cervical Epidural Steroid Injection: Interlaminar completed LEYDI SALEH MD [address] [place] [address], [phone], [facility] 01/19/2022 16:07:55 Imaging Results None recorded. Procedure [...] height Body mass index (BMI) Body weight Pain severity - 0-10 verbal numeric rating [Score] - Reported Provider Name and Address Organization Details Last Updated DateTime 11/21/2022 160.02 cm 35.4 kg/m2 85626.47 g 8 Kiara Ambrocio [facility] 11/21/2022 13:54:47 Social History Question Answer Notes LastModified by Organizat ion Details LastModified Time Tobacco Smoking Status Former Smoker Olivia amezcua [facility] 12/13/2021 14:21:42 Do You Have An Advance Directive? No [email or web address] Information n ot available 07/19/2022 In The 14 Days Before Symptom Onset, Have You Had Close Contact With A Laboratory-confirm ed COVID-19 While That Case Was Ill? No [email or web address] Information n ot available 07/16/2022 In The 14 Days Before Symptom Onset, Have You Had Close Contact With A Person Who Is Under Investigation For COVID-19 While That Person Was Ill? No [email or web address] Information not available 07/16/2022 What Type Of Diet Are You Following? REGULAR [email or web address] Information n ot available 07/16/2022 What Is The Highest Grade Or Level Of School You Have Completed Or The Highest Degree You Have Received? HS07276-8 [email or web address] Information not available 07/16/2022 What Was The Date Of Your Most Recent Tobacco Screening? 07/19/2022 [email or web address] Information not available 07/16/2022 What Is Your Relationship Status? Unknown [email or web address] Information not available 07/16/2022 Sex: Unknown Functional Status Question Answer Note LastModified by Organizat ion Details LastModified Time Do you use any illicit or recreational drugs? No Information not available 12/13/2021 What is your level of alcohol consumption? None [email or web address] Information not available 12/13/2021 Are you currently employed? No [email or web address] Information not available 07/16/2022 Are you able to walk independently without assistance or assistive devices? YESWOREST [email or web address] Information not available 07/16/2022 What is your exercise level? None [email or web address] Information not available 07/16/2022 Mental Status None [...] Ulcer Disease N Anemia N Heart Attack (GA) N Diabetes N Cardiomyopathy N Bleeding Disorder [...] ICD10 Code Diagnosis IMO Codes Diagnosis Note [id number] LEYDI SALEH MD [address] ,[facility] [address] [place] [address] 12/13/2021 13:45:58 12/13/2021 16:20:49 Cervical spondylosis without myelopathy 054736890 M47.812 Cervical radiculitis 110 93235 M54.12 Long-term drug therapy 856140458 Z79.899 The preliminar y [place] urine drug screen is appropriat e for the class of medication (s) that the patient is being prescribed and based on their risk stratifica tion I will not send this sample for further quantitati ve LCMS testing. [id number] MD Susannah HENNESSY [address] [place] [address] 01/19/2022 13:24:27 01/19/2022 14:01:33 Cervical radiculitis 07227614 M54.12 [id number] MD Susannah HENNESSY [address] [place] [address] 02/02/2022 09:03:00 02/02/2022 10:20:24 Cervical spondylosis without myelopathy 221438840 M47.812 Adult heal th examination 075627448 Z00.01 Cervical radiculitis 110 76725 M54.12 [id number] MD Susannah HENNESSY [address] [place] [address] 02/16/2022 12:38:21 02/16/2022 13:20:13 Cervical radiculopathy 24645716 M54.12 [id number] MD Susannah HENNESSY [address] [place] [address] 05/25/2022 12:40:39 05/25/2022 14:05:13 Cervical radiculopathy 92347901 M54.12 [id number] MD Susannah HENNESSY [address] [place] [address] 07/19/2022 08:37:45 07/19/2022 09:12:25 Long-term drug therapy 561181495 Z79.899 Hypertensi on screening 155215493 Z13.6 Cervical s pondylosis without myelopathy 706092895 M47.812 Adult heal th examination 101445682 Z00.01 Cervical radiculitis 110 79427 M54.12 [id number] MD Susannah HENNESSY [address] [place] [address] 09/26/2022 14:04:22 09/26/2022 14:33:01 Cervical radiculopathy 35872517 M54.12 [id number] MD Susannah HENNESSY [address] [place] [address] 11/21/2022 13:50:02 11/22/2022 08:52:21 Cervical spondylosis without myelopathy 935382137 M47.812 Adult heal th examination 782149683 Z00.01 Cervical radiculitis 110 61754 M54.12 Long-term drug therapy 722615477 Z79.899 NO MEDS FROM CP&S [id number] LEYDI SALEH MD [place] [address] [place] [address] 12/10/2022 14:47:50 12/11/2022 10:32:22 Cervical spondylosis without myelopathy 934927023 M47.728 [id number] LEYDI SALEH MD [place] [address] [place] [address] 01/31/2023 14:08:03 01/31/2023 14:38:13 Cervical spondylosis without myelopathy 492676921 M47.678 [id number] LEYDI SALEH MD [place] [address] [place] [address] 03/14/2023 14:22:03 03/14/2023 15:27:17 Cervical spondylosis without myelopathy 763228799 M47.844 [id number] LEYDI SALEH MD [place] [address] [place] [address] 04/17/2023 19:06:40 04/18/2023 09:14:27 Pain disorder with psychological factor 9475334458 07 F45.42 Health Concerns Section Related Observation LastModified by Organization Detai ls LastModified Time None Recorded Concern Status LastModified by Organization Details LastModified Time None Recorded Advance Directives Directive N: Payers Insurance Date Sequence Insurance Name Policy Number Policy Fitzgerald Covered Member ID Fitzgerald Member ID Guarantor Name 07/22/2023 1 SUPRIYA: ARIES MILLER OF [place] - [employer] (MEDICARE REPLACEMENT HMO) [id number] Parul Leone [id number] Parul Leone 02/11/2023 2 [employer] (MEDICARE REPLACEMENT/AD VANTAGE - HMO) Parul Leone [id number] Parul Leone Notes Date Note Type Note Provider Name and Address Organization Details Recorded Time 3 text/html Pain Management InitialReported by PatientPain Management InitialFor hand dominance, patient reportsleft. For location, patient reportsbilateral. For quality, patient reportsaching,burning,stab anthony,throbbing,sharp, anddull. For duration, patient + years. For timing, patient reportscannot identify. For context, patient reportscannot identify. For alleviating factors, patient reportsnothing helps. For aggravating factors, patient reportstwistingandrom. For associated symptoms, patient reportsno weakness,no numbness,no tingling,no swelling,no redness,no warmth,no ecchymosis,no catching/locking,no popping/clicking,no buckling,no grinding,no instability,no radiation down arm,no drainage,no fever,no chills,no weight loss, andno change in bowel/bladder habits. For previous surgery, patient reportsnone. For prior imaging, patient reportsmri. For previous injections, patient reportsdid not help (dr. schmitt). For previous pt, patient reportsdid not help. For work related, patient reportsno. For working, patient reportsno. Follow-up (meds & injections)Reported by PatientHPIFor improvement, patient reportspain is getting worse.. For neuroflow, patient reportsnot utilizing. For pain scores, patient reportsaverage pain- 6/10,current pain- 8/10, andworst pain- 8/10. 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 For recent injections, (09/26/2022 (thera) michelle c7/t1; 80% pain relief for 1 month; 50% pain relief [id number]/25/2022 (thera) michelle c7/t1; 100% pain relief for 1 month02/16/2022 #2 michelle c7/t1; 100% pain relief for 2 [id number]/19/2022 #1 michelle c7/t1; 95% pain relief for 1 week). For current analgesics, (no medication from [facility]ps). For physical therapy, (denies). Neck painReported by PatientHPIFor quality, patient reportsthrobbing,tightness ,numbess,burning,aching, andstabbing. For associated symptoms, patient reportsweakness,numbness,d izziness,tingling, andpain in upper extremitiesbut reportsno popping/clickingandno bowel incontinence. For location, patient reportsbilateral paraspinalandradiating to the bilateral upper extremities to the hand. For duration, patient reportsconstant. For context, patient reportsstarted without cause. For alleviating factors, patient reportsnothing helps. For aggravating factors, patient reportslying down,lifting,looking down,looking up,turning head to the left, andturning head to the right. For timing, patient reportsconstant. 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 For prior imaging, patient reportsmri. For previous cervical surgery, patient reportsnone. For interventional treatment history, patient reportstpi: __ (dr. schmitt 09/2021). For previous pt, patient reportscompleted all recommended pt visits,more than 6weeks of pt completed:, andresponse to therapy: no pain improvement ([facility]). For other conservative treatment, patient reportschiropractic treatments: __. For working, patient reportsno. For functional scores, patient reportsneck disability index (ndi) completed: 50. For prior pain management, patient reportsyes (dr. schmitt).ROS as noted in the HPI Patient is present with CP & S for a follow up on neck pain. 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
--- OUTSIDE RECORDS SUMMARY | 2025-04-18 18:31 | XMS_ITS | Clinical Summary ---
[facility] Address [address] [place] [id number] Care Team Providers Care Guest Relations Representative Name Role Phone Provider, No Known Primary [...] SCREENING 06/23/2018 INFLUENZA VACCINE 01/15/2025 Care Teams Guest Relations Representative Relationship Specialty Start Date End Date Provider, No Known [facility] [place] [address] PCP - General 06/23/18
[2025-04-18 18:36] LABS: Chloride 100 mmol/L (98-107)
[2025-04-18 18:37] LABS: Potassium 4.3 mmoL/L (3.5-5.1); Sodium 138 mmol/L (136-145)
[2025-04-18 18:39] LABS: Anion Gap 14.3 mEq/L (5-15); Blood Urea Nitrogen 12 mg/dl (7-17); Carbon Dioxide 28 mmol/L (22.0-30.0); Creatinine Clearance Estimated 58 mL/min (50-200); Creatinine,Serum 0.70 mg/dl (0.52-1.04); Estimated Glomerular Filt Rate 85 ml/min (>60); GFR (African American) 102 ML/MIN (>60); Glucose 127 mg/dl (74-100); Total Protein,Serum 7.5 g/dl (6.3-8.2)
[2025-04-18 18:40] LABS: Activated Partial Thrombo Time 27.3 seconds (22.8-30.6); Calcium 9.3 mg/dl (8.4-10.2); Cholesterol 151 mg/dl (140-200); HDL Cholesterol 91 mg/dl (40-60); INR 0.93 (0.9-1.1); Lipase 32 U/L (23-300); Prothrombin Time 10.4 seconds (10.1-12.5); Triglycerides 61 mg/dl (30-150)
[2025-04-18 18:42] LABS: Albumin Level 5.2 g/dl (3.5-5.0); Albumin/Globulin Ratio 2.3 (1.1-1.8); Globulin 2.3 g/dL (1.3-3.2)
[2025-04-18 18:44] LABS: Alanine Aminotransferase 38 U/L (12-78); Aspartate Amino Transferase 43 U/L (14-36)
[2025-04-18 18:45] LABS: Alkaline Phosphatase 123 U/L (38-126); Bilirubin,Total 1.1 mg/dl (0.2-1.3); Creatine Kinase 226 U/L (30-135)
[2025-04-18 18:52] LABS: Microscopic, Urine URINE MICROSCOPIC (MICROSCOPIC)
--- NOTE | 2025-04-18 18:53 | ECG_ITS ---
APPROVED REPORT Exam: Resting ECG HR:88 bpm ECG Measurements Heart Rate [address] 166 P 50 QRSd 86 QRS 8 QT 350 T 35 QTc 395 Conclusion SINUS RHYTHM WITH OCCASIONAL VENTRICULAR PREMATURE COMPLEXES PROBABLE INFERIOR MYOCARDIAL INFARCTION , OF INDETERMINATE AGE [35 ms Q WAVE IN II/aVF] ABNORMAL ECG UNCONFIRMED REPORT Normal sinus rhythm. No ST elevation or depression. QTc normal at 395 Electronically signed by : ADRIEL SEGURA, 04/18/2025 21:14:46
[2025-04-18] MEDS: NALOXONE 2MG/2ML SYRINGE 1 MG IV ×2 (18:57→19:04)
[2025-04-18 19:00] VITALS: BP 136/83; PULSE 89; RESP 22; O2SAT 97
[2025-04-18 19:01] LABS: Bilirubin,Urine Negative (Negative); Color,Urine YELLOW (Yellow); Glucose,Urine (UA) Negative (Negative); Ketones,Urine Negative (Negative); Leukocyte Esterase,Urine TRACE (Negative); PH,Urine 6.0 (5.0-8.5); Protein,Urine Negative (Negative); Specific Gravity, Urine 1.010 (1.005-1.030); Urobilinogen,Urine 0.2 EU/dl (0.2)
[2025-04-18 19:04] LABS: Troponin I < 0.01 ng/ml (0.00-0.034)
[2025-04-18 19:12] VITALS: BP 142/82; PULSE 89; RESP 22; O2SAT 97
[2025-04-18 19:13] LABS: Amphetamine/Metha Screen,Urine Negative ng/ml (<1000); Barbiturates Screen,Urine Negative ng/ml (<200)
[2025-04-18 19:14] LABS: Benzodiazepines Screen,Urine Negative ng/ml (<200)
[2025-04-18 19:16] LABS: Methadone Screen,Urine Negative ng/ml (<300); Opiate Screen,Urine Positive ng/ml (<300)
[2025-04-18 19:17] LABS: Phencyclidine Screen,Urine Negative ng/ml (<25)
[2025-04-18 19:25] LABS: Bacteria,Urine Trace /lpf; WBC,Urine Occasional #/hpf (0-3)
[2025-04-18 19:30] VITALS: BP 141/82; PULSE 87; RESP 24; O2SAT 97
[2025-04-18 19:39] LABS: Lactate Venous 1.5 mmol/L (0.4-2.0); VBG HCO3 22.8 mmol/L (23-30); VBG PCO2 44.4 mmol/L (35-51); VBG PH 7.33 mmol/L (7.31-7.41); VBG PO2 51.0 mmol/L (28-40)
[2025-04-18 19:52] LABS: Hepatitis C Ab Qual. W/ RFX NEGATIVE (Negative)
[2025-04-18 19:53] LABS: C-Reactive Protein 26.5 mg/L (0-4)
[2025-04-18 20:00] VITALS: BP 131/76; RESP 18; O2SAT 97
--- NOTE | 2025-04-18 20:28 | PC.NURSE ---
Spoke with transfer center about pt. speaking with at this time
--- NOTE | 2025-04-18 20:56 | PC.NURSE ---
Report given to MAGDALENO Garcia at ED. EMS contacted and made aware of need for transportation.
[2025-04-18 21:12] VITALS: BP 131/79; PULSE 87; RESP 20; TEMP 36.6; O2SAT 98
== END 2025-04-18 21:13 | disposition other institution (70) ==
PROVIDERS: Emergency Provider Student in an Organized Health Care Education/Training Program; PCP Nurse Practitioner Family
DX: S72.352A Displaced comminuted fracture of shaft of left femur, initial encounter for closed fracture (principal); R47.81 Slurred speech; R41.82 Altered mental status, unspecified; I10 Essential (primary) hypertension; E11.40 Type 2 diabetes mellitus with diabetic neuropathy, unspecified; Z86.79 Personal history of other diseases of the circulatory system; Z95.5 Presence of coronary angioplasty implant and graft; W19.XXXA Unspecified fall, initial encounter; Z79.84 Long term (current) use of oral hypoglycemic drugs
CPT/HCPCS: 70450; 70496; 70498; 71275; 73560; 74177; 80053; 80061; 80307; 80320; 81001; 82550; 82803; 83690; 84484; 85025; 85610; 85730; 86140; 86803; 87040; 87389; 93005; 96374; 96376; 99285; J2312; Q9967

== ENCOUNTER 2025-05-17 10:03 | Outpatient (CLI) | payer MEDICARE, SELFPAY ==
--- OUTSIDE RECORDS SUMMARY | 2025-04-18 22:23 | XMS_ITS | Encounter Summary ---
Author Organization Healthcare Address [address] [place] [address] Care Team Providers Care Band Builder Name Role Phone Tho Bowden MD Primary Care Provider [phone] Reason for Referral * Consultation (Routine) - Authorized Specialty Diagnoses / Procedures Referred By Prabha dougherty Referred To Contact Occupational Therapy Diagnoses 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, initial encounter Sandy Wilks PA [address] [address] Phone: tel: fax: Referral ID Status Reason Start Date Expiration Date Visits Requested Visits Authorized [id number] Authorized Consult and Treat 04/26/2025 10/26/2026 1 1 * Consultation (Routine) - Authorized Specialty Diagnoses / Procedures Referred By Prabha dougherty Referred To Contact Physical Therapy Diagnoses 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, initial encounter Sandy Wilks PA [id number] [place] [address] Phone: tel: fax: Referral ID Status Reason Start Date Expiration Date Visits Requested Visits Authorized [id number] Authorized Consult and Treat 04/26/2025 10/26/2026 1 1 * Home Health (Routine) - Authorized Specialty Diagnoses / Procedures Referred By Prabha dougherty Referred To Contact Home Health Services / Case Management Diagnoses Altered mental status, unspecified altered mental status type Fall, initial encounter Jackelyn Bautista MD [address] [address] Phone: tel: fax: CASE MANAGEMENT [address] [place] [address] Phone: tel: Referral ID Status Reason Start Date Expiration Date Visits Requested Visits Authorized [id number] Authorized Specialty Services Required 04/24/2025 10/24/2026 999 999 Reason for Visit * Reason Comments Fall Leg Pain Altered Mental Status * Auth/Cert (Routine) Specialty Diagnoses / Procedures Referred By Prabha dougherty Referred To Contact Diagnoses Polypharmacy Fall, initial encounter 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, initial encounter Fall at home, initial encounter Altered mental status, unspecified altered mental status type fall, periprosthetic left distal femur fracture Yaneli Trimble MD [address] [address] Phone: tel: fax: [facility] [address] [place] [address] Phone: tel: Referral ID Status Reason Start Date Expiration Date Visits Re quested Visits Authorized [id number] 1 1 Encounter Details Date Type Department Care Team (Latest Contact Info) Description 04/18/2025 10:23 PM EST - 04/26/2025 1:14 PM EST Hospital Encounter [facility] [address] [place] [address] Yousif Anderson, DO [address] [place] [address] Yaneli Trimble MD [address] [address] Vikki Lucia MD [address] [facility] [place] [address] Keiko Valverde MD [address] [facility] [place] [address] Hang Nettles MD [address] [facility] [place] [address] Jackelyn Bautista MD [id number] [place] [address] Bell Tang MD [address] [address] Altered mental status, unspecified altered mental status type (Primary Dx); 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, initial encounter; Fall, initial encounter; Polypharmacy Discharge Disposition: Home-Health Care [facility] [place] Social History Tobacco Use Types Packs/Day Years Used Date Smoking Tobacco: Never Smokeless Tobacco: Never Tobacco Cessation:Counseling Given: Not Answered Alcohol Use Standard Drinks/Week Comments Never 0 (1 standard drink = 0.6 oz pur e alcohol) Humiliation, Afraid, Rape, and Kick questionnair e Answer Date Recorded Within the last year, have y ou been afraid of your partner or ex-partner? No 04/19/2025 Within the last year, have y ou been humiliated or emotionally abused in other ways by your partner or ex-partner? No Within the last year, have y ou been kicked, hit, slapped, or otherwise physically hurt by your partner or ex-partner? No 04/19/2025 Within the last year, have y ou been raped or forced to have any kind of sexual activity by your partner or ex-partner? No 04/19/2025 AUDIT-C Answer Date Recorded Q1: How often do you have a drink containing alcohol? Never 04/19/2025 Q2: How many drinks containi ng alcohol do you have on a typical day when you are drinking? Patient does not drink Q3: How often do you have si x or more drinks on one occasion? Never 04/19/2025 Hunger Vital Sign Answer Date Recorded Within the past 12 months, y ou worried that your food would run out before you got the money to buy more. Never true 04/19/20 25 Within the past 12 months, t he food you bought just didn't last and you didn't have money to get more. Never true 04/19/2025 PRAPARE - Transportation Answer Date Re corded In the past 12 months, has l ack of transportation kept you from medical appointments or from getting medications? No 08/2024 In the past 12 months, has l ack of transportation kept you from meetings, work, or from getting things needed for daily living? No 04/19/2025 Housing Stability Vital Sign Answer Shahbaz e Recorded In the last 12 months, was t here a time when you were not able to pay the mortgage or rent on time? No 04/19/2025 In the past 12 months, how m any times have you moved where you were living? 0 04/19/2025 At any time in the past 12 m [facility], were you homeless or living in a senior care (including now)? No 04/19/2025 [facility] Utilities Answer Date Recorded In the past 12 months has th e electric, gas, oil, or water company threatened to shut off services in your home? No 04/19/2025 Comments No Sex and Gender Information Value Date Recorded Sex Assigned at Not on file Legal Sex Female 6:39 PM EDT Gender Identity Not on file Sexual Orientation Not on file documented as of this encounter Last Filed Vital Signs Vital Sign Reading Time Taken Comments Blood Pressure 116/73 04/26/2025 9:03 AM EST Pulse 88 04/26/2025 9:03 AM EST Temperature 36.8 C (98.3 F) 04/26/2025 9:03 AM EST Respiratory Rate 16 04/26/2025 9:03 AM EST Oxygen Saturation 97% 04/26/2025 9:03 AM EST Inhaled Oxygen Concentration - - Weight 63.4 kg (139 lb 12.4 oz) 04/26/2025 3:24 AM EST Height 160 cm (5' 3 ) 04/21/2025 1:47 PM EST Body Mass Index 24.76 04/21/2025 1:47 PM EST documented in this encounter Functional Status * AUDIT-C Score Answer Date of Assessment Author 0 04/19/2025 12:59 PM Audrey Hernández RN * Question Answer Date of Assessment Author Q1: How often do you have a drink containing alcohol? Never 04/19/2025 12:59 PM Audrey Hernández RN Q2: How many drinks containing alcohol do you have on a typical day when you are drinking? Patient does not drink 04/19/2025 12:59 PM Audrey Hernández RN Q3: How often do you have six or more drinks on one occasion? Never 04/19/2025 12:59 PM Audrey Hernández RN * Calculated C-SSRS Risk Score (Lifetime/Recent) Answer Date of Assessment Author No Risk Indicated 04/26/2025 8:00 AM Shonda Coleman RN * Question Answer Date of Assessment Author 1. Wish to be (Past 1 Month) No 04/26/2025 8:00 AM Shonda Gates RN 2. Non-Specific Active Suici sangita Thoughts (Past 1 Month) No 04/26/2025 8:00 AM Nestor Gates RN 6. Suicidal Behavior (Lifetime) No 8:00 AM Shonda Gates RN documented as of this encounter Discharge Instructions * Discharge Instructions* Sandy Wilks PA - 04/25/2025 3:55 PM EST DVT prophylaxis: Enoxaparin 30 BID through 05/15 Medication Changes: Decrease Metoprolol to 12.5 daily Decrease Trazodone to 50 mg nightly Start taking Folci acid 1mg daily Start taking Trinatal one tablet daily Procedures: 04/21: ORIF periprosthetic DF fx Mobility Restrictions: LLE: WBAT Wound Care: LLE: If bandage becomes wet, soiled, or falls off it may be replaced with a clean dry gauze dressing as needed. ОЛЕГ wrap should be removed 72 hours following surgery, and then re-applied daily for swelling as needed taking care not to remove the sterile OR dressing underneath. Incidental Findings: None Follow up: Primary care provider 1-2 weeks following discharge for post-hospitalization evaluation, review of incidental findings and management of chronic medical issues. This was discussed with patient, who states they do have a primary care provider that they are established with and they are understandingof follow up instructions. ORT: 05/04/28 @ 0830 with Robina James @ [facility]; [facility], [address] [place] [address], First Floor, Wing C, [address], [place] [address], # [phone]. Neurology: Follow up with Neurology [address] [place] [address] [address], First Floor, [place] [address]. The clinic will call you with an appointment. [facility] (Saturday clinic) as needed; [address] [place] [address] 1[address] [place] [address] Questions or Concerns and Appointments If there are questions or concerns after discharge from the hospital, please call [phone] and ask for [facility] Nurse. Working hours are Saturday - Saturday 8:00 AM to 4:00 PM. After hours, weekends and holidays please call [phone] and ask for the resident director hr communications for [facility]. For appointments please call [phone]. Medication requests should be made between the hours of 9:00 AM to 3:00 PM Saturday thru Saturday. Please note that based upon recent changes to [place] law related to prescribing opioid pain medications, our providers will not provide refills on controlled medications after your hospital discharge following a major surgery or trauma. [place] 218[place], [place]205 [place] 201 KAR9:260. documented in this encounter Medications at Time of Discharge acetaminophen (Tylenol) 500 MG tablet Take 2 tablets by mouth every 6 hours. 240 tablet 04/26/2025 alendronate (Fosamax) 70 MG tablet Take 1 tablet by mouth every 7 days. Take in the morning with a full glass of water, on an empty stomach, and do not take anything else by mouth or lie down for the next 30 min. atorvastatin (Lipitor) 80 MG tablet Take 1 tablet by mouth daily. baclofen (Lioresal) 10 MG tablet Take 1 tablet by mouth 3 times a day. cariprazine (Vraylar) 1.5 MG capsule Take 1 capsule by mouth daily. clopidogrel (Plavix) 75 MG tablet Take 1 tablet by mouth daily. colestipol (Colestid) 1 g tablet Take 1 tablet by mouth daily. Take at least 1 hour after or 4 hours before other medications. dicyclomine (Bentyl) 20 MG tablet Take 1 tablet by mouth 2 times a day. famotidine (Pepcid) 20 MG tablet Take 1 tablet by mouth 2 times a day. 60 tablet 04/26/2025 FLUoxetine (PROzac) 40 MG capsule Take 1 capsule by mouth 2 times a day. fluticasone (Flonase) 50 MCG/ACT nasal spray Administer 1 spray into each nostril daily. Shake gently. Before first use, prime pump. After use, clean tip and replace cap. fluticasone-salmete rol (Advair Diskus) 500-50 MCG/ACT diskus inhaler Inhale 1 puff 2 times a day. Rinse mouth with water after use to reduce aftertaste and incidence of candidiasis. Do not swallow. folic acid (Folvite) 1 MG tablet Take 1 tablet by mouth daily. 30 tablet 04/27/2025 furosemide (Lasix) 80 MG tablet Take 1 tablet by mouth daily. galcanezumab-gnlm (Emgality) 120 MG/ML injection Inject 1 Syringe under the skin every 30 days. HYDROcodone-acetami nophen ([place]) 5-325 MG tablet Take 1 tablet by mouth 2 times a day as needed. hydrOXYzine pamoate (Vistaril) 25 MG capsule Take 1 capsule by mouth 3 times a day. metFORMIN (Glucophage) 1000 MG tablet Take 1 tablet by mouth 2 times a day with meals. metoprolol succinate XL (Toprol-XL) 25 MG 24 hr tablet Take 0.5 tablets by mouth daily. Do not crush or chew. 15 tablet 04/27/2025 montelukast (Singulair) 10 MG tablet Take 1 tablet by mouth nightly. naloxone (Narcan) 4 mg/0.1 mL nasal spray 1. Give 1 spray in nostril for no/slow breathing or cannot wake after opioid use 2. Call 911 3. Repeat in other nostril if symptoms continue 1 each 04/26/2025 omeprazole (PriLOSEC) [address] capsule Take 1 capsule by mouth daily. Do not crush or chew. oxybutynin XL (Ditropan-XL) 10 MG 24 hr tablet Take 1 tablet by mouth daily. Do not crush, chew, or split. polyethylene glycol (Miralax) 17 g packet Take 17 g by mouth 2 times a day. 10 each 04/26/2025 potassium chloride CR (Klor-Con M20) 20 MEQ ER tablet Take 1 tablet by mouth daily. Do not crush or chew. multivitamin (Trinatal Rx 1) 60-1 MG tablet tablet Take 1 tablet by mouth daily. 30 tablet 04/26/2025 QUEtiapine (SEROquel) 50 MG tablet Take 1 tablet by mouth nightly. ranolazine (Ranexa) 500 MG 12 hr tablet Take 1 tablet by mouth 2 times a day. Do not crush, chew, or split. Rimegepant Sulfate (Nurtec) 75 MG orally disintegrating tablet Dissolve 1 tablet on the tongue as needed. rOPINIRole (Requip) 2 MG tablet Take 1 tablet by mouth nightly. semaglutide (Ozempic, 2 MG/DOSE,) 8 MG/3ML solution pen-injector Inject 2 mg under the skin every 7 days. senna-docusate (Anna-Colace) 8.6-50 MG tablet Take 1 tablet by mouth 2 times a day. 10 tablet 04/26/2025 topiramate 50 MG tablet Take 1 tablet by mouth nightly. traZODone (Desyrel) 50 MG tablet Take 1 tablet by mouth nightly. 30 tablet 04/26/2025 venlafaxine XR (Effexor-XR) 75 MG 24 hr capsule Take 1 capsule by mouth daily. Do not crush or chew. 30 capsule 04/27/2025 enoxaparin (Lovenox) 30 MG/0.3ML solution prefilled syringe Inject 0.3 mL under the skin 2 times a day for 40 doses. 12 mL 04/26/2025 5 oxyCODONE (Roxicodone) 5 MG immediate release tablet Take 1 tablet by mouth every 6 hours as needed for severe pain for up to 3 days. 10 tablet 04/26/2025 5 documented as of this encounter Miscellaneous Notes * Shonda Redman RN - 04/26/2025 11:26 AM EST Images from the original note were not included. 204 Incision Care After Orthopaedic Surgery Will there be a dressing on the incision? After surgery, we will cover your incision with a sterile dressing that is waterproof. It is important to keep this dressing clean, dry, and intact as long as possible after surgery. This will reduceyour risk of infection. If possible, leave it in place until you return to the clinic for your first follow-up appointment. It is normal to have a small amount of drainage on the dressing. How do I care for the incision at home? Once the dressing is removed, it is important to talk good care of the incision. Please follow these instructions until your doctor tells you otherwise. ? Once the dressing is removed, you may shower. You can allow warm soapy water to run over the incision. Do not scrub the incision and always pat dry. ? Do not soak your incision in water. This means no tub baths or swimming. Your doctor will tell you when you can to do these things. ? Do not clean your incision with any solution, ointment, or salve unless directed to do so by yourdoctor. ? Always wear clean clothes over your incision. When should I call my doctor? If you have any of the following warning signs, call your doctor right away: ? Pain or swelling gets worse ? Numbness or tingling in the hand or foot ? A burning or stinging feeling ? Fever or chills ? Bleeding or drainage from the dressing ? Dressing rubs the heel or elbow ? Damage or wetness to the dressing ? Dressing feels too loose * Krames OnFHShonda Rasmussen RN - 04/26/2025 11:26 AM EST Images from the original note were not included. [id number] Discharge Instructions: Internal Fixation of a Fractured Femur You had a procedure called internal fixation of a fractured femur (thighbone). A max, plates and screws, or several pins were inserted inside the bone. These will hold the broken ends of bone in place while they heal. After the bone has healed, the max, plate and screws, or pins may need to be removed with surgery. A broken femur is a serious injury that takes about 3 to 6 months to heal. Here are instructions to help you care for your leg when you are at home. Activity ? Arrange your household to keep the items you need within reach. ? Remove electrical cords, throw rugs, and anything else that may cause you to fall. ? Use nonslip bathmats, grab bars, a raised toilet seat, and a shower chair in your bathroom. ? Follow the weight-bearing instructions given by your doctor. They will tell you how much weight you can or can't put on your leg. ? Use a cane, crutches, a walker, or handrails. Use these until your balance, flexibility, and strength improve. Ask for help from others when you need it. ? Don't carry things in your hands. You will need to use your hands to keep your balance. Use a gentry pack, apron, or pockets to carry things. ? Don?t sit or lie in the same position for long periods. Don't cross your legs when you sit or liedown. Carefully reposition yourself every 30 to 60 minutes. ? Don?t drive until your doctor says it?s okay. And never drive while taking opioid pain medicine. Home care ? Take your pain medicine exactly as directed. ? Take extra care when showering. Follow your doctor?s instructions closely. Do the following: o If you wear a leg brace or immobilizer, cover it with plastic to keep it dry while you shower. o If you don't wear a leg brace or immobilizer, carefully wash your incision with soap and water. Gently pat it dry. Don?t rub the incision or apply creams or lotions to it. To prevent falling while showering, sit on a shower chair. ? Tell all your health care providers--including your dentist--that you have a max, plate and screws, or pins in your leg. You may need to take antibiotics before dental procedures and other medical procedures. This is to reduce the risk of infection. Follow-up care Follow up with your doctor as advised. Call 911 Call 911 right away if you have: ? Chest pain. ? Shortness of breath. When to contact your doctor Contact your doctor right away if you have: ? Numbness or tingling in your leg or toes. ? Cool, pale, red- or blue-colored leg or toes. ? A fever of 100.4?? F ( 38?? C) or higher, or as directed by your doctor. ? Shaking chills. ? Pain that gets worse. ? Swelling of the fracture site or calf. ? Fluid with foul odor coming from the dressing. ? A rash. Last Reviewed Date: 2024 00:00:00 ?? [id number] [employer]. All rights reserved. This information is not intended as a substitute for professional medical care. Always follow your healthcare professional's instructions. H * Ashley Almodovar - Shonda Pearson RN - 04/26/2025 11:26 AM EST Images from the original note were not included. [id number] Enoxaparin Injection IMPORTANT WARNING: If you have epidural or spinal anesthesia or a spinal puncture while taking a 'blood thinner' such as enoxaparin, you are at risk for having a blood clot form in or around your spine that could causeyou to become paralyzed. Tell your doctor if you are taking other anticoagulants ('blood thinners')such as warfarin (Coumadin), anagrelide (Agrylin), aspirin or nonsteroidal anti-inflammatory drugs (ibuprofen, naproxen), cilostazol (Pletal), clopidogrel (Plavix), dipyridamole (Persantine), eptifibatide (Integrilin), prasugrel (Effient), sulfinpyrazone (Anturane), ticlopidine (Ticlid), and tirofiban (Aggrastat). If you experience any of the following symptoms, call your doctor immediately: numbness, tingling, leg weakness or paralysis, and loss of control over your bladder or bowels. Talk to your doctor about the risk of taking enoxaparin. Keep all appointments with your doctor. WHY is this medicine prescribed? Enoxaparin is used to prevent blood clots in the leg in patients who are on bedrest or who are having hip replacement, knee replacement, or stomach surgery. It is used in combination with aspirin to prevent complications from angina (chest pain) and heart attacks. It is also used in combination with warfarin to treat blood clots in the leg. Enoxaparin is in a class of medications called low molecular weight heparins. It works by stopping the formation of substances that cause clots. HOW should this medicine be used? Enoxaparin comes as an injection in a syringe to be injected just under the skin (subcutaneously) but not into your muscle. It is usually given twice a day. You will probably begin using the drug while you are in the hospital and then use it for a total of 10 to 14 days. Follow the directions on your prescription label carefully, and ask your doctor or pharmacist to explain any part you do not und erstand. Use enoxaparin exactly as directed. Do not inject more or less of it or inject it more often than prescribed by your doctor. Continue to use enoxaparin even if you feel well. Do not stop taking enoxaparin without talking to your doctor. Your healthcare provider will teach you how to give yourself the shot or arrangements will be made for someone else to give you the shot. Enoxaparin is usually injected in the stomach area. You must use a different area of the stomach each time you give the shot. If you have questions about where to give the shot, ask your healthcare provider. Each syringe has enough drug in it for one shot. Do not use the syringe and needle more than one time. Your doctor, pharmacist, or health care provider will tell you how to dispose of used needles and syringes to avoid accidental injury. Keep syringes and needles out of reach of children. To inject enoxaparin, follow these instructions: ? Wash your hands and the area of skin where you will give the shot. ? Look at the syringe to be sure the drug is clear and colorless or pale yellow. ? Take the cap off the needle. Do not push any air or drug out of the syringe before giving the shot unless your healthcare provider tells you to. ? Lie down and pinch a fold of skin between your finger and thumb. Push the entire needle into the skin and then press down on the syringe plunger to inject the drug. Hold onto the skin the entire time you give the shot. Do not rub the site after you give the shot. Are there OTHER USES for this medicine? This medication may be prescribed for other uses; ask your doctor or pharmacist for more information. What SPECIAL PRECAUTIONS should I follow? Before taking enoxaparin, ? tell your doctor and pharmacist if you are allergic to enoxaparin, heparin, any other drugs, or pork products. ? tell your doctor and pharmacist what prescription and nonprescription medications, vitamins, nutritional supplements, and herbal products you are taking or plan to take while receiving enoxaparin. Your doctor may need to change the doses of your medications or monitor you carefully for side effects. ? the following nonprescription products may interact with enoxaparin: aspirin and nonsteroidal anti-inflammatory drugs (NSAIDs) such as ibuprofen (Advil, Motrin, others) and naproxen (Aleve, Naprosyn, others). Be sure to let your doctor and pharmacist know that you are taking these medications before you start receiving enoxaparin. Do not start any of these medications while receiving enoxaparinwithout discussing with your healthcare provider. ? tell your doctor if you have an artificial heart valve and if you have or have ever had kidney disease, an infection in your heart, a stroke, a bleeding disorder, ulcers, or a low platelet count. ? tell your doctor if you are , plan to become , or are breast- feeding. If you become while taking enoxaparin, call your doctor. ? if you are having surgery, including dental surgery, tell the doctor or dentist that you are taking enoxaparin. What should I do IF I FORGET to take a dose? Inject the missed dose as soon as you remember it. However, if it is almost time for the next dose,skip the missed dose and continue your regular dosing schedule. Do not inject a double dose to makeup for a missed one. What SIDE EFFECTS can this medicine cause? If you experience any of the following symptoms or those listed in the IMPORTANT WARNING section, call your doctor immediately: ? unusual bleeding or bruising ? black or bloody stools ? blood in urine ? swollen ankles and/or feet If you experience a serious side effect, you or your doctor may send a report to the Food and Drug Administration's (FDA) MedWatch Adverse Event Reporting program online (https://www.fda.gov/Safety/MedWatch) or by phone ( ). What should I know about STORAGE and DISPOSAL of this medication? Keep this medication out of reach of children. Store the syringes at room temperature and away fromexcess heat and moisture (not in the bathroom). Do not use the syringe if it leaks or if the fluid is dark or contains particles. Dispose of unneeded medications in a way so that pets, children, and other people cannot take them.Do not flush this medication down the toilet. Use a medicine take-back program. Talk to your pharmacist about take-back programs in your community. Visit the FDA's Safe Disposal of Medicines website h ttps://goo.gl/c4Rm4p for more information. Keep all medication out of sight and reach of children as many containers are not child-resistant. Always lock safety caps. Place the medication in a safe location - one that is up and away and out of their sight and reach. https://www.upandaway.org What should I do in case of OVERDOSE? In case of overdose, call the poison control helpline at . Information is also available online at https://www.poisonhelp.org/help. If the victim has collapsed, had a seizure, has trouble breathing, or can't be awakened, immediately call emergency services at 911. What OTHER INFORMATION should I know? Keep all appointments with your doctor and the laboratory. Your doctor will order certain lab teststo monitor your enoxaparin therapy. Enoxaparin prevents blood from clotting so it may take longer than usual for you to stop bleeding if you are cut or injured. Avoid activities that have a high risk of causing injury. Call your doctorif bleeding is unusual. Do not let anyone else use your medication. Your prescription is probably not refillable. Keep a written list of all of the prescription and nonprescription ([id number]) medicines, vitamins, minerals, and dietary supplements you are taking. Bring this list with you each time you visit a doctor or if you are admitted to the hospital. You should carry the list with you in case of maye rgencies. Brand Name(s): ? Lovenox?? also available generically This report on medications is for your information only, and is not considered individual patient advice. Because of the changing nature of drug information, please consult your physician or pharmacist about specific clinical use. The [place] [employer] represents that the information provided hereunder was formulated with a reasonable standard of care, and in conformity with professional standards in the field. The [place] [employer] makes no representations or warranties, express or implied, including, but not limited to, any implied warranty of merchantability and/or fitness for a particular purpose, with respect to such information and specifically disclaims all such warranties. Users are advised that decisions regarding drug therapy are complex medical decisions requiring the independent, informed decision of an appropriate health healthcare or medical, and the information is provided for informational purposes only. The entire monograph for a drug should be reviewed for a thorough understanding of the drug's actions, uses and side effects. The [place] [employer] does not endorse or recommend the use of any drug.The information is not a substitute for medical care. AHFS?? Patient Medication Information?. ?? Copyright, 2023. The [place] [employer]??, [address], [address], [place], [place]. All Rights Reserved. Duplication for commercial use must be authorized by [facility]. Selected Revisions: January 04, 2024. AHFS?? Patient Medication Information?. ?? Copyright, 2024 * Aslhey Almodovar - Shonda Pearson RN - 04/26/2025 11:26 AM EST Images from the original note were not included. 54177 Femur Fracture What is a femur fracture? Your thighbone is known as the femur bone. The femur spans from the hip to the knee. The femur is the longest and strongest bone in your body. Since femur bones are so strong, it usually takes a lot of force to break them. One of the most common causes of femur fractures (breaks) are car crashes. A fracture is a break in the bone in 2 or more pieces. There are different types of femur fractures. ? Femur fractures can be nondisplaced (bone is broken but the parts still line up correctly) or displaced (out of alignment). ? Femur fractures can be closed (skin intact) or open (the bone has gone through the skin). Open femur fractures (also known as compound fractures) can happen when either pieces of the bone are sticking through the skin or a wound penetrates down to the broken bone. These types of fractures cause more damage to the nearby tissues (muscles, tendons, and ligaments), have a higher risk of complications (such as infections), and take a longer time to heal. What parts of the femur can break? Distal femur fracture ? Description: This type of femur fracture is just above the knee joint where the bone flares out like an upside-down funnel. The distal femur makes up part of the knee joint. These fractures can sometimes extend into the knee joint and can separate the surface of the bone into multiple parts. These types of distal femur fractures are known as intra-articular and can be more difficult to treat. Distal femur fractures happen most often in younger people and the elderly. ? Treatment: These types of fractures may require surgery, depending on how bad they are. o Nonsurgical treatment involves either skeletal traction (yohannes system with weights) or casting and bracing (hold bones in place until they heal). o Open fractures require surgery sooner than closed (bone not exposed to the outside) fractures. ? Your final surgery may be delayed until the skin and muscles around the fracture have time to heal. This helps reduce your risk of complications. In these cases, the fracture is placed in external fixation (metal pins are placed into the bone and held together by an outer metal fixator). It is usually raised until the skin and muscles are healed enough for surgery. ? Final surgery for these types of fractures usually includes intramedullary nailing or open reduction and internal fixation (ORIF) with plates and screws. ? With intramedullary nailing, a metal max is placed into the marrow canal (center) of the femoral shaft. The max passes across the fracture to keep it in position. Then it is screwed to the bone at both ends. ? With open reduction and internal fixation (ORIF) with plates and screws, the bone fragments are reduced (repositioned) into their normal alignment. Then screws and metal plates are attached to the outer part of the bone to hold them in place. Femoral shaft fracture ? Description: This type of femur fracture occurs on the long, straight part of the femur. In youngerpeople, these fractures often happen in car crashes. In older people, they often happen by falling from standing, if they have weaker bones. ? Treatment: In some cases, these types of fractures do not require surgery. But in most cases, they do. o If the fracture is open, it will require surgery sooner than if the fracture is closed (bone not exposed to the outside). The fractured leg may be placed in temporary skeletal traction (yohannes system with weights) or external fixation (metal pins are placed into the bone and held together by an outer metal fixator) until a final surgery can happen. Both of these treatments stabilize the fracture for a short time. o Common surgeries for femoral shaft fractures are intramedullary nailing and open reduction and internal fixation (ORIF) with plates and screws. ? With intramedullary nailing, a metal max is placed into the marrow canal (center) of the femoral shaft. This holds the fracture in place. Then screws are placed through the nail at both ends. ? With open reduction and internal fixation (ORIF) with plates and screws, the bone fragments are put into their normal position. They are then held together with screws and metal plates attached to the outer area of the bone. Proximal femur fracture This type of femur fracture occurs close to the ball (femur head) of the femur that makes up part of the hip joint. These types of fractures happen most often in falls by older people with weakened bones. There are 4 types of proximal femur fractures. These are based on the location of the fracture. 1. Femoral neck fracture ? Description: This is the area of the femur below the ball of the hip (femoral head). This type offracture can also be called a subcapital or intracapsular fracture. ? Treatment: o If the fracture is not displaced (it is aligned): The most common surgery to fix these fractures is in-situ pinning. This is where surgical pins/screws are placed through the part of the bone that is broken. This holds the ball of the femur in place while the fracture heals. o If the fracture is displaced (it is not aligned): These fractures are often treated with a ryan-arthroplasty (partial hip replacement) or a total hip replacement. Ryan-arthroplasties are often used in older patients. Total hip replacements are often used in very active and younger patients. 2. Intertrochanteric area fracture ? Description: This is the area below the neck of the femur and above the long part or the shaft. These fractures happen below the femoral neck. It is a bigger area between the greater and lesser trochanters. ? Treatment: These fractures are often treated with a sliding compression hip screw and side plate or with an intramedullary nail (max). o The compression hip screw is attached to the outer part of the bone with screws. Then a larger screw is placed through the plate and into the femoral head and neck. o The intramedullary nail is placed into the marrow canal (center) of the bone through an opening made at the greater trochanter. Then 1 or more screws are placed through the nail and into the femoral head. 3. Subtrochanteric area fracture ? Description: This is the upper part of the shaft of the femur below the greater and lesser trochanters. ? Treatment: These fractures are often treated with an intramedullary nail (max). It is placed intothe marrow canal (center) of the femur shaft. Then a screw is placed through the nail into the femoral head. Multiple screws may be placed at the lower end of the nail at the knee. 4. Femoral head fracture ? Description: This is the ball of the femur that sits in the socket. These fractures are very rare. ? Treatment: These fractures may be able to be treated without surgery. When treated with surgery, it is often by open reduction and internal fixation (ORIF) with screws. Which image studies help diagnose femur fractures? X-rays. This study provides images of dense structures like bones. X-rays are often the first scansdone to find bone fractures. Magnetic Resonance Imaging (MRI) scans. This study provides images of soft tissue structures and bone. MRIs are very sensitive and can sometimes detect a small or incomplete fracture that cannot be seen on an X-ray. Computerized Tomography (CT) scans. This study provides a detailed cross- sectional image of the bone. CT scans are often ordered for surgeons to get more detailed imaging of a specific fracture. * Ashley MartinezIR - Shonda Pearson RN - 04/26/2025 11:26 AM EST Images from the original note were not included. 1087 Oxycodone Oral Tablet, Immediate Release Brand Names: Oxaydo, Roxicodone What is this medicine? Oxycodone (ub-j-JBG-done) is an opioid pain reliever. It is used to treat moderate to severe pain. What should I tell my health care provider before I take this medicine? They need to know if you have any of these conditions: ? Waverly's disease ? Brain tumor or head injury ? Personal or family history of drug abuse or addiction ? Heart disease ? Frequent alcohol use ? Kidney disease ? Liver disease ? Lung disease, asthma, or breathing problems ? Depression, anxiety, or other psychiatric disease ? Allergy or unusual reaction to oxycodone, acetaminophen or other pain relievers ? , trying to get , or How should I use this medicine? Take this medicine as prescribed by your doctor, and follow the directions on the prescription label. ? Take this medicine as prescribed by your doctor. Follow the directions on the prescription label. ? Do not take this medicine more often than directed. ? This medicine should be taken with a full glass of water. ? If it upsets your stomach, you may take it with food. You do not have to take this medicine with food. ? Do not crush, cut, chew, lick, wet, soak, or otherwise manipulate a tablet before taking. ? Do not share this medicine with others. This medicine is only for you. ? The pharmacy will give you a special medication guide each time you pick up driver this medicine. ? Overdosage: Taking too much of this medicine can be deadly. Your doctor may prescribe another medicine with this medicine to treat an accidental overdose. If you think you have taken too much of this medicine, call 911 immediately. What if I miss a dose? If you miss a dose, you may take it as soon as you remember. If it is almost time for your next dose, take only that dose. Do not take double or extra doses. What may interact with this medicine? ? Alcohol ? Medicines for sleep, depression, anxiety, or psychiatric diseases ? Seizure medicines like gabapentin, pregabalin, phenytoin, or phenobarbital ? Other pain medicines like tramadol, hydrocodone, fentanyl, or morphine ? Muscle relaxers ? Certain nausea medicines like chlorpromazine or promethazine ? Cannabinoids like droperidol ? Certain antibiotics like erythromycin, clarithromycin, rifampin, ritonavir, voriconazole, or ketoconazole ? Allergy medicines like diphenhydramine This list may not describe all possible interactions. Give your health care provider a list of all the medicines, herbs, non-prescription drugs, or dietary supplements you use. Also tell them if you smoke, drink alcohol, or use illegal drugs. Some items may interact with your medicine. What should I watch for while using this medicine? ? Before you start taking this medicine, talk with your doctor about how long you should be on thismedicine. You should also talk to your doctor about other things you can do to treat pain, including other medicines or non-drug treatments like meditation or acupuncture. While taking this medicine,tell your doctor if your pain does not go away or gets worse or if you have a new or different typeof pain. ? It is possible you could become dependent on this medicine. The risk of dependence increases the longer you are on the medicine. Dependence is not addiction; however, if you have a personal or family history of addiction, you are at higher risk for becoming addicted to this medicine. Talk to yourdoctor if you are worried about dependence or addiction. ? If you take this medicine for a long time and suddenly stop taking this medicine, you may withdraw from this medicine. Withdrawal from this medicine may cause sweating, pain, diarrhea, anxiety, tremor, and other symptoms. Stopping the medicine slowly can reduce withdrawal symptoms. ? This medicine may cause dizziness or drowsiness, especially when you change doses or first start the medicine. Do not drive, use machinery, or do anything dangerous until you know how your body reacts to this medicine. ? This medicine causes constipation. Unless your doctor tells you not to, you should take a stool softener while on this medicine. Tell your doctor if you have not had a bowel movement in 3 or more days while on this medicine. ? This medicine can also cause dry mouth. Drinking water, chewing gum, or sucking on hard candy canhelp. It is important to keep regular dentist appointments. What side effects may I notice from receiving this medicine? Side effects that you should report to your doctor or health healthcare or medical as soon as possible: ? allergic reactions like skin rash, itching or hives, swelling of the face, lips, or tongue ? breathing problems ? confusion ? craving for the medicine or withdrawal symptoms with a missed dose ? feeling faint or lightheaded, falls ? trouble passing urine or change in the amount of urine ? unusually weak or tired Side effects that usually do not require medical attention (report to your doctor or health healthcare or medical if they continue or are bothersome): ? constipation ? dry mouth ? itching ? nausea, vomiting ? upset stomach This list may not describe all possible side effects. Call your doctor for medical advice about side effects. You may report side effects to FDA at 6-942-WQB-2760. Where should I keep my medicine? This medicine should be kept in a locked cabinet away from children and protected from theft. This medicine can be abused. Do not share this medicine with anyone. Selling or giving away this medicineis against the law. Store at room temperature (60-80??F) in a dry place that is protected from light. Do not save unused medicine that is no longer needed. Unused medicine should be taken to a proper disposal location. To find a disposal location, visit [employer]. If you cannot take unused medicine to a proper location, you can mix the medicine with coffee grounds or margo litter and dispose of in the normal trash. Your doctor may also give you a special disposal pouch for this medicine. You can also flush the medicine down the toilet. * [facility] - Shonda Pearson RN - 04/26/2025 11:26 AM EST Images from the original note were not included. 217 Giving a Subcutaneous (Sub-Q) Enoxaparin (Lovenox) Injection (UK) Giving yourself a subcutaneous injection (also called a sub-Q injection) means inserting medicine into the fat just under your skin. The needle used for a sub- Q injection is very small and doesn?t cause much pain. Many medicines are given in this way. Enoxaparin (Lovenox) is a blood thinner used to prevent or treat blood clots. Why you take enoxaparin (Lovenox): Keep taking this medicine for this time period: Injections can be given once or twice a day. Your doctor has prescribed the amount and times to inject. The prescription will also say how long you need to take it. Amount per injection: Times each day: Preparing a Work Area ? Put any pets in another room. ? Wash your hands for 1 to 2 minutes with liquid soap. ? Clean your area with soap and water. ? Collect the following items: o Your medication o Alcohol wipes or swabs o A puncture-proof plastic container to dispose of your used needles and syringes. Use a sharps container or an empty laundry detergent bottle. ? Wash your hands again. Selecting Your Injection Site ? Inject this medicine in your abdomen at least 2 inches from the belly button. ? Avoid areas that are red, swollen, or bruised. ? Rotate your injection sites. Choose a site that is at least 2 inches away from your last injection site. ? Sit or lie in a comfortable position. Preparing the Medicine ? Check the medicine in the syringe for changes in color, debris, or cloudiness. ? Don?t use the medicine if you notice anything different about the contents of the syringe. ? Call your doctor or pharmacist if you question whether the medicine is safe to use. ? Remove the syringe from its package. Don?t use the syringe if the package is already open or has holes in it. Giving the Injection ? Using an alcohol swab, clean the injection site. Make sure the cleaned area is about 2 inches in diameter. ? Let the injection site dry. ? Take the cap off the needle. ? There is an air bubble in the syringe. If the air bubble is not at the top of the syringe near the plunger, flick the syringe with your other fingers. The air bubble should be injected last to helpprevent skin irritation and make sure you receive all of the medicine. ? Hold the syringe like a pencil. ? With your other hand, place your thumb and forefinger on either side of the clean injection site.Pinch up about an inch of skin. ? Insert the needle at a 90?? angle into the pinched-up skin. Do this quickly; it will hurt less. ? Be sure to insert the needle with the bevel up and insert all the way to the end of the needle. This will help you inject the medicine correctly. ? Keep the skin pinched up. ? To inject the medicine , slowly push the plunger all the way down with your finger. After the Injection ? Pull the needle from the skin and release the pinched-up skin. ? Hold the alcohol swab on the injection site for a few seconds. Don?t rub the injection site. ? If you see blood or clear fluid, press on the injection site with the gauze or cotton ball for 5 to 8 minutes. Don?t rub while pressing. Apply a bandage if you wish. ? Don?t recap the needle. ? Put the empty syringe in the disposal container. Never put loose needles in the trash. ? Call your local waste company or public health department to find out the proper way to dispose of used syringes. * [facility] - Shonda Pearson RN - 04/26/2025 11:25 AM EST Images from the original note were not included. 450 Safe Use of Controlled Substances Taking a medicine may be an important part of your treatment. Your body should heal faster if you take medicine safely. Some medicines are called Controlled Substances. This means their use is controlled by law. Some of these can harm you if you do not take them safely. What can I do to make sure I take my medicine safely? ? Follow the instructions we give you for how to take your medicine. ? We will give you an instruction sheet for each of your medicines. Ask your doctor or nurse if youdo not get these instructions. ? Some medicines make you sleepy or cloud your thinking. Do not drive, use heavy machines or do dangerous activities while taking these medicines. ? Read the label on the bottle each time you take your medicine. ? Do not take your medicine with alcohol or other sedatives. ? Do not take medicine after the expiration date. ? It is against the law to sell your medicine or share it with others. ? Do not drive while using your medicine. How should I store my medicine? Store it in a safe place. This will keep others from taking your medicine and help you keep track of it. ? Store controlled substances in a cabinet or container that you can lock. ? Keep it in a place that is cool, dry and out of direct sunlight. ? Do not leave it in the car. ? Do not store in a refrigerator or freezer, unless your doctor tells you to. ? Call your doctor right away if your medicine is lost or stolen. How should I dispose of medicine that is or no longer needed? You may have medicine left over that you do not need or should not take. You must dispose of it theright way to protect yourself and others. You can ask your local pharmacist how to dispose of them.You can also visit these Web sites to learn more about disposal of controlled substances: ? Drug Enforcement Agency (KATHY): http://www.deadiversion.usdoj.gov/drug_disposal/takeback/index.htm ? National Association of Drug Diversion Investigators (NADDI): http://rxdrugdropbox.org/ ? [place] Office of Drug Control Policy: http://odcp.sd.gov/Prescription+Drug+Drop+Box+Sites.htm Are there concerns about or ? ? Before you take a medicine, tell your doctor if you are or plan to get . This could harm your baby. ? Tell your doctor if you breastfeed. Medicine in breast milk may be bad for your child. What if I have low or impaired vision? If you have vision problems, take extra care with your medicine. ? Wear your glasses when you take your medicine. ? Do not take medicine in the dark. What are the signs of overdose? Some controlled substances may cause breathing problems if you take more than your doctor recommends. This may lead to serious health problems or even . You and your caregivers should watch for the following signs of overdose. ? Slurred speech, confusion or stumbling ? Feeling dizzy or faint ? Acting drowsy or groggy ? Unusual snoring, gasping or snorting during sleep ? Hard to wake up or keep awake What should I or my caregiver do if I overdose? You or your caregiver should call 911 if you have any of these problems: ? Cannot wake up ? Cannot talk after waking up ? Shortness of breath, slow or light breathing, or breathing has stopped ? Heartbeat is slow or stopped ? Gurgling noise comes from the mouth or throat ? Body is limp or seems lifeless ? Face is pale or clammy ? Fingernails or lips look blue or purple What is a TERELL report? TERELL is a system that tracks prescriptions of controlled substances in [place]. The TERELL report tells your doctor if you have been prescribed controlled substances in the past. Doctors must get a TERELL report before prescribing controlled substances. What can I do if the information in my TERELL report is wrong? You or your doctor may contact the dispenser who reported the information to [facility]. If the dispenser agrees that the information should be changed, he or she can fix the TERELL report. However, the dispenser may certify that the report is correct. If that is the case, you or your doctor may then call the [place] Drug Enforcement and Professional Practices Branch at .This will start an investigation of the error. * Assessment & Plan Note - Sandy Wilks PA - 04/26/2025 10:51 AM EST Associated Problem(s): Fall at home, initial encounter Admit to SGT5 * Assessment & Plan Note - Sandy Wilks PA - 04/26/2025 10:51 AM EST Associated Problem(s): Closed fracture of left femur L periprosthetic femur fx thru distal diaphysis 04/21: ORIF periprosthetic DF fx * Assessment & Plan Note - Sandy Wilks PA - 04/26/2025 10:51 AM EST Associated Problem(s): Acute encephalopathy Medicine and neurology consulted Echo with bubble study negative on 04/21 Neurology state low concern for stroke, no further testing recommended Attempt to resume home medications as able and appropriate * Assessment & Plan Note - Sandy Wilks PA - 04/26/2025 10:51 AM EST Associated Problem(s): FAMILIA (generalized anxiety disorder) Resume home meds as appropriate; Effexor and Trazodone * Assessment & Plan Note - Sandy Wilks PA - 04/26/2025 10:51 AM EST Associated Problem(s): Migraines Topiramate initially held per medicine, resumed on 04/21 with improved mental status * Assessment & Plan Note - Sandy Wilks PA - 04/26/2025 10:51 AM EST Associated Problem(s): CAD (coronary artery disease) Resume home meds as appropriate; Lipitor Hold Plavix * Assessment & Plan Note - Sandy Wilks PA - 04/26/2025 10:51 AM EST Associated Problem(s): Heart failure 04/21: ECHO: EF 64%. Normal diastolic function. Resume home meds as appropriate: Metoprolol, Lasix * Assessment & Plan Note - Sandy Wilks PA - 04/26/2025 10:51 AM EST Associated Problem(s): COPD (chronic obstructive pulmonary disease) Resume home meds as appropriate PEP/PAP Pulmonary toileting * Assessment & Plan Note - Sandy Wilks PA - 04/26/2025 10:51 AM EST Associated Problem(s): HTN (hypertension) Resume home meds as appropriate * Assessment & Plan Note - Sandy Wilks PA - 04/26/2025 10:51 AM EST Associated Problem(s): GERD (gastroesophageal reflux disease) Resume home meds as appropriate: Famotidine Hold off on PPI given osteoporosis/fragility fx * Assessment & Plan Note - Sandy Wilks PA - 04/26/2025 10:51 AM EST Associated Problem(s): Age-related osteoporosis with current pathological fracture Fragility consulted; recs pending Reportedly on Alendronate, restart as able * Assessment & Plan Note - Sandy Wilks PA - 04/26/2025 10:51 AM EST Associated Problem(s): Chronic back pain Resume home Baclofen Hold home [place] in light of acute fx and additional in-patient narcotics * Assessment & Plan Note - Sandy Wilks PA - 04/26/2025 10:51 AM EST Associated Problem(s): IBS (irritable bowel syndrome) Resuming home medications as able Bowel regimen as appropriate * Assessment & Plan Note - Sandy Wilks PA - 04/26/2025 10:51 AM EST Associated Problem(s): Urge incontinence In the setting of concern for polypharmacy, hold oxybutynin * Assessment & Plan Note - Sandy Wilks PA - 04/26/2025 10:51 AM EST Associated Problem(s): T2DM (type 2 diabetes mellitus) Take Metformin at home, unclear diagnosis A1c 5.3, SSI, CC2 in-patient * Assessment & Plan Note - Sandy Wilks PA - 04/26/2025 10:51 AM EST Associated Problem(s): Mood disorder (CMS/HCC) Known history continue home Seroquel @ 75 mg nightly * Assessment & Plan Note - Sandy Wilks PA - 04/26/2025 10:51 AM EST Associated Problem(s): Hypomagnesemia -Continue to monitor -Replete as needed * Assessment & Plan Note - Sandy Wilks PA - 04/26/2025 10:51 AM EST Associated Problem(s): Acute blood loss anemia (ABLA) -Continue to monitor -Transfuse for hgb < 7 -Add vitamin daily -04/25: HGB: 6.8 --> 1 unit PRBCs. * Discharge Summary - Sandy Wilks PA - 04/26/2025 10:46 AM EST Hospitalization Admit Date/Time: 04/18/2025 10:23 PM Admitting Attending: Vikki Lucia Discharge Date: 04/26/2025 Discharge Attending Physician: Jackelyn Bautista MD PCP name and Address: Tho Bowden MD [address] [address] Referring provider name and address: Emerson Mai MD [address] [place] [address] Chief Concern, Brief History of Present Illness, and Hospital Course Parul Leone is a 64 y/o F w/ PMHx of HTN, MDD/Anxiety, Osteopenia, Arthritis, chronic pain CAD s/pPCI w/ CHF on Plavix, GERD, HLD, Migraines, asthma, COPD, Vitamin D deficiency, gastric bypass and IBS, admitted from OSH on 04/18 s/p fall on 04/17. Patient tripped in a hole in the yard and suffered a L periprosthetic femur fx. Concern at OSH for stroke d/t AMS, work up negative. ORT, Medicine and Neuro consulted. Interval: Patient sitting up in bed A&O. VSS. NAD. NAEON. On RA, no SOA. H/H this AM stable. Patient to follow up with her PCP on 05/04 to follow up her labs. Tolerating PO diet, no N/V, abd pain. Last BM yesterday. Mobilizing as able with assistance. Pain well controlled. Discussed return precautions. Discussed plan of care with patient/family, who is in understanding. No further concerns per patient or nursing. Physical therapy and occupational therapy evaluated the patient during hospitalization and recommend acute rehab. At the time of discharge the patient was hemodynamically stable, tolerating PO, voiding spontaneously, normal bowel function, mobilizing appropriately, with their pain controlled with PO medication. At this time, the patient has obtained the maximum benefit from the present hospital stay, and so will be discharged home with home PT/OT as patient declines acute rehab. DVT prophylaxis: Enoxaparin 30 BID through 05/15 Medication Changes: Decrease Metoprolol to 12.5 daily Decrease Trazodone to 50 mg nightly Start taking Folci acid 1mg daily Start taking Trinatal one tablet daily Procedures: 04/21: ORIF periprosthetic DF fx Mobility Restrictions: LLE: WBAT Wound Care: LLE: If bandage becomes wet, soiled, or falls off it may be replaced with a clean dry gauze dressing as needed. ОЛЕГ wrap should be removed 72 hours following surgery, and then re-applied daily for swelling as needed taking care not to remove the sterile OR dressing underneath. Incidental Findings: None Follow up: Primary care provider 1-2 weeks following discharge for post-hospitalization evaluation, review of incidental findings and management of chronic medical issues. This was discussed with patient, who states they do have a primary care provider that they are established with and they are understandingof follow up instructions. ORT: 05/04/28 @ [facility] with Robina James @ Orthopaedic Surgery & Sports Medicine; [facility], [address] [place] [address], First Floor, Wing C, Room [address], [place] [address], # [phone]. Neurology: Follow up with Neurology [address] [place] [address] [address], [facility], [place] [address]. The clinic will call you with an appointment. [facility] (Saturday clinic) as needed; [address] [place] [address] 1[address] [place] [address] Questions or Concerns and Appointments If there are questions or concerns after discharge from the hospital, please call [phone] and ask for [facility] Nurse. Working hours are Saturday - Saturday 8:00 AM to 4:00 PM. After hours, weekends and holidays please call [phone] and ask for the resident director hr communications for [facility]. For appointments please call [phone]. Medication requests should be made between the hours of 9:00 AM to 3:00 PM Saturday thru Saturday. Please note that based upon recent changes to [place] law related to prescribing opioid pain medications, our providers will not provide refills on controlled medications after your hospital discharge following a major surgery or trauma. [place] 201 [id number]. Surgeries and Procedures Procedures performed in this encounter Procedures Case Request Operating Room: ORIF, FRACTURE, FEMUR, DISTAL ORIF, FRACTURE, FEMUR, DISTAL (Left) Medication List PAUSE taking these medications HYDROcodone-acetaminophen 5-325 MG tablet Wait to take this until your doctor or other care provider tells you to start again. Commonly known as: [place] Take 1 tablet by mouth 2 times a day as needed. .. acetaminophen 500 MG tablet Commonly known as: Tylenol Take 2 tablets by mouth every 6 hours. alendronate 70 MG tablet Commonly known as: Fosamax Take 1 tablet by mouth every 7 days. Take in the morning with a full glass of water, on an empty stomach, and do not take anything else by mouth or lie down for the next 30 min. atorvastatin 80 MG tablet Commonly known as: Lipitor Take 1 tablet by mouth daily. baclofen 10 MG tablet Commonly known as: Lioresal Take 1 tablet by mouth 3 times a day. clopidogrel 75 MG tablet Commonly known as: Plavix Take 1 tablet by mouth daily. colestipol 1 g tablet Commonly known as: Colestid Take 1 tablet by mouth daily. Take at least 1 hour after or 4 hours before other medications. dicyclomine 20 MG tablet Commonly known as: Bentyl Take 1 tablet by mouth 2 times a day. Emgality 120 MG/ML injection Generic drug: galcanezumab-gnlm Inject 1 Syringe under the skin every 30 days. enoxaparin 30 MG/0.3ML solution prefilled syringe Commonly known as: Lovenox Inject 0.3 mL under the skin 2 times a day for 40 doses. famotidine 20 MG tablet Commonly known as: Pepcid Take 1 tablet by mouth 2 times a day. FLUoxetine 40 MG capsule Commonly known as: PROzac Take 1 capsule by mouth 2 times a day. fluticasone 50 MCG/ACT nasal spray Commonly known as: Flonase Administer 1 spray into each nostril daily. Shake gently. Before first use, prime pump. After use, clean tip and replace cap. fluticasone-salmeterol 500-50 MCG/ACT diskus inhaler Commonly known as: Advair Diskus Inhale 1 puff 2 times a day. Rinse mouth with water after use to reduce aftertaste and incidence ofcandidiasis. Do not swallow. folic acid 1 MG tablet Commonly known as: Folvite Take 1 tablet by mouth daily. Start taking on: April 27, 2025 furosemide 80 MG tablet Commonly known as: Lasix Take 1 tablet by mouth daily. hydrOXYzine pamoate 25 MG capsule Commonly known as: Vistaril Take 1 capsule by mouth 3 times a day. metFORMIN 1000 MG tablet Commonly known as: Glucophage Take 1 tablet by mouth 2 times a day with meals. metoprolol succinate XL 25 MG 24 hr tablet Commonly known as: Toprol-XL Take 0.5 tablets by mouth daily. Do not crush or chew. Start taking on: April 27, 2025 montelukast 10 MG tablet Commonly known as: Singulair Take 1 tablet by mouth nightly. naloxone 4 mg/0.1 mL nasal spray Commonly known as: Narcan 1. Give 1 spray in nostril for no/slow breathing or cannot wake after opioid use 2. Call 911 3. Repeat in other nostril if symptoms continue Nurtec 75 MG orally disintegrating tablet Generic drug: Rimegepant Sulfate Dissolve 1 tablet on the tongue as needed. omeprazole [address] capsule Commonly known as: PriLOSEC Take 1 capsule by mouth daily. Do not crush or chew. oxybutynin XL 10 MG 24 hr tablet Commonly known as: Ditropan-XL Take 1 tablet by mouth daily. Do not crush, chew, or split. oxyCODONE 5 MG immediate release tablet Commonly known as: Roxicodone Take 1 tablet by mouth every 6 hours as needed for severe pain for up to 3 days. Ozempic (2 MG/DOSE) 8 MG/3ML solution pen-injector Generic drug: semaglutide Inject 2 mg under the skin every 7 days. polyethylene glycol 17 g packet Commonly known as: Miralax Take 17 g by mouth 2 times a day. potassium chloride CR 20 MEQ ER tablet Commonly known as: Klor-Con M20 Take 1 tablet by mouth daily. Do not crush or chew. multivitamin 60-1 MG tablet tablet Take 1 tablet by mouth daily. QUEtiapine 50 MG tablet Commonly known as: SEROquel Take 1 tablet by mouth nightly. ranolazine 500 MG 12 hr tablet Commonly known as: Ranexa Take 1 tablet by mouth 2 times a day. Do not crush, chew, or split. rOPINIRole 2 MG tablet Commonly known as: Requip Take 1 tablet by mouth nightly. senna-docusate 8.6-50 MG tablet Commonly known as: Anna-Colace Take 1 tablet by mouth 2 times a day. topiramate 50 MG tablet Take 1 tablet by mouth nightly. traZODone 50 MG tablet Commonly known as: Desyrel Take 1 tablet by mouth nightly. venlafaxine XR 75 MG 24 hr capsule Commonly known as: Effexor-XR Take 1 capsule by mouth daily. Do not crush or chew. Start taking on: April 27, 2025 Vraylar 1.5 MG capsule Generic drug: cariprazine Take 1 capsule by mouth daily. Where to Get Your Medications These medications were sent to [facility] - [place], [place] - [address] [facility] [place] [address] [facility] [address] acetaminophen 500 MG tablet enoxaparin 30 MG/0.3ML solution prefilled syringe famotidine 20 MG tablet folic acid 1 MG tablet metoprolol succinate XL 25 MG 24 hr tablet naloxone 4 mg/0.1 mL nasal spray oxyCODONE 5 MG immediate release tablet polyethylene glycol 17 g packet multivitamin 60-1 MG tablet tablet senna-docusate 8.6-50 MG tablet traZODone 50 MG tablet venlafaxine XR 75 MG 24 hr capsule Discharge Diagnosis Assessment & Plan Fall at home, initial encounter Present on Admission: Not Applicable Admit to [facility] Closed fracture of left femur Present on Admission: Yes L periprosthetic femur fx thru distal diaphysis 04/21: ORIF periprosthetic DF fx Acute encephalopathy Present on Admission: Yes Medicine and neurology consulted Echo with bubble study negative on 04/21 Neurology state low concern for stroke, no further testing recommended Attempt to resume home medications as able and appropriate FAMILIA (generalized anxiety disorder) Present on Admission: Yes Resume home meds as appropriate; Effexor and Trazodone Migraines Present on Admission: Yes Topiramate initially held per medicine, resumed on 04/21 with improved mental status CAD (coronary artery disease) Present on Admission: Yes Resume home meds as appropriate; Lipitor Hold Plavix Heart failure Present on Admission: Yes 04/21: ECHO: EF 64%. Normal diastolic function. Resume home meds as appropriate: Metoprolol, Lasix COPD (chronic obstructive pulmonary disease) Present on Admission: Yes Resume home meds as appropriate PEP/PAP Pulmonary toileting HTN (hypertension) Present on Admission: Yes Resume home meds as appropriate GERD (gastroesophageal reflux disease) Present on Admission: Yes Resume home meds as appropriate: Famotidine Hold off on PPI given osteoporosis/fragility fx Age-related osteoporosis with current pathological fracture Present on Admission: Yes Fragility consulted; recs pending Reportedly on Alendronate, restart as able Chronic back pain Present on Admission: Yes Resume home Baclofen Hold home [place] in light of acute fx and additional in-patient narcotics IBS (irritable bowel syndrome) Present on Admission: Yes Resuming home medications as able Bowel regimen as appropriate Urge incontinence Present on Admission: Yes In the setting of concern for polypharmacy, hold oxybutynin T2DM (type 2 diabetes mellitus) Present on Admission: Yes Take Metformin at home, unclear diagnosis A1c 5.3, SSI, CC2 in-patient Mood disorder (CMS/HCC) Present on Admission: Yes Known history continue home Seroquel @ 75 mg nightly Hypomagnesemia Present on Admission: Unknown -Continue to monitor -Replete as needed Acute blood loss anemia (ABLA) Present on Admission: Unknown -Continue to monitor -Transfuse for hgb < 7 -Add vitamin daily -04/25: HGB: 6.8 --> 1 unit PRBCs. Outpatient Follow-Up Future Appointments Date Time Provider Department Center 05/04/2025 8:30 AM Robina James APRN [facility] Pertinent Physical Exam At Time of Discharge Physical Exam Constitutional: General: She is not in acute distress. Appearance: Normal appearance. She is normal weight. She is not ill-appearing. HENT: Head: Normocephalic and atraumatic. Eyes: Pupils: Pupils are equal, round, and reactive to light. Cardiovascular: Rate and Rhythm: Normal rate. Pulmonary: Effort: Pulmonary effort is normal. No respiratory distress. Abdominal: General: Abdomen is flat. Bowel sounds are normal. Palpations: Abdomen is soft. Musculoskeletal: General: Swelling (LLE) and tenderness (LLE) present. Normal range of motion. Right lower leg: No edema. Left lower leg: Edema present. Comments: LLE with some thigh swelling, surgical dressings noted, ОЛЕГ CDI Skin: General: Skin is warm and dry. Capillary Refill: Capillary refill takes less than 2 seconds. Neurological: General: No focal deficit present. Mental Status: Mental status is at baseline. GCS: GCS eye subscore is 4. GCS verbal subscore is 5. GCS motor subscore is 6. Sensory: Sensation is intact. Motor: No weakness. Psychiatric: Mood and Affect: Mood normal. Judgment: Judgment normal. Discharge Disposition/Condition Disposition: Home Condition: Stable (s/sx potential problems absent or manageable) I spent >30 minutes of patient care and instruction time in preparation for this discharge. Cosigned by Jackelyn Bautista MD at 04/26/2025 1:35 PM EST Associated attestation - Jackelyn Bautista MD - 04/26/2025 1:35 PM EST The patient was seen only by Advanced Practice Provider ([facility]), and care was reviewed with me. * Care Plan - Robyn Clark RN - 04/26/2025 6:37 AM EST Problem: Adult Inpatient Plan of Care Goal: Plan of Care Review Outcome: Ongoing, Progressing Flowsheets (Taken 04/25/2025 1218 by Doreen Villalobos, RN) Progress: improving Plan of Care Reviewed With: patient Goal: Absence of Hospital-Acquired Illness or Injury Outcome: Ongoing, Progressing Goal: Optimal Comfort and Wellbeing Outcome: Ongoing, Progressing Problem: Skin Injury Risk Increased Goal: Skin Health and Integrity Outcome: Ongoing, Progressing Problem: Infection Goal: Absence of Infection Signs and Symptoms Outcome: Ongoing, Progressing Problem: Fall Injury Risk Goal: Absence of Fall and Fall-Related Injury Outcome: Ongoing, Progressing * Assessment & Plan Note - Etta Jimenez APRN - 04/25/2025 1:35 PM EST Associated Problem(s): Acute blood loss anemia (ABLA) -Continue to monitor -Transfuse for hgb < 7 -Add vitamin daily -04/25: HGB: 6.8 --> 1 unit PRBCs. * Assessment & Plan Note - Etta Jimenez APRN - 04/25/2025 1:35 PM EST Associated Problem(s): Fall at home, initial encounter Admit to SGT5 * Assessment & Plan Note - Etta Jimenez APRN - 04/25/2025 1:35 PM EST Associated Problem(s): Closed fracture of left femur L periprosthetic femur fx thru distal diaphysis 04/21: ORIF periprosthetic DF fx * Assessment & Plan Note - Etta Jimenez APRN - 04/25/2025 1:35 PM EST Associated Problem(s): Acute encephalopathy Medicine and neurology consulted Echo with bubble study negative on 04/21 Neurology state low concern for stroke, no further testing recommended Attempt to resume home medications as able and appropriate * Assessment & Plan Note - Etta Jimenez APRN - 04/25/2025 1:35 PM EST Associated Problem(s): FAMILIA (generalized anxiety disorder) Resume home meds as appropriate; Effexor and Trazodone * Assessment & Plan Note - Etta Jimenez APRN - 04/25/2025 1:35 PM EST Associated Problem(s): Migraines Topiramate initially held per medicine, resumed on 04/21 with improved mental status * Assessment & Plan Note - tEta Jimenez APRN - 04/25/2025 1:35 PM EST Associated Problem(s): CAD (coronary artery disease) Resume home meds as appropriate; Lipitor Hold Plavix * Assessment & Plan Note - Etta Jimenez APRN - 04/25/2025 1:35 PM EST Associated Problem(s): Heart failure 04/21: ECHO: EF 64%. Normal diastolic function. Resume home meds as appropriate: Metoprolol, Lasix * Assessment & Plan Note - Etta Jimenez APRN - 04/25/2025 1:35 PM EST Associated Problem(s): COPD (chronic obstructive pulmonary disease) Resume home meds as appropriate PEP/PAP Pulmonary toileting * Assessment & Plan Note - Etta Jimenez APRN - 04/25/2025 1:35 PM EST Associated Problem(s): HTN (hypertension) Resume home meds as appropriate * Assessment & Plan Note - Etta Jimenez APRN - 04/25/2025 1:35 PM EST Associated Problem(s): GERD (gastroesophageal reflux disease) Resume home meds as appropriate: Famotidine Hold off on PPI given osteoporosis/fragility fx * Assessment & Plan Note - Etta Jimenez APRN - 04/25/2025 1:35 PM EST Associated Problem(s): Age-related osteoporosis with current pathological fracture Fragility consulted; recs pending Reportedly on Alendronate, restart as able * Assessment & Plan Note - Etta Jimenez APRN - 04/25/2025 1:35 PM EST Associated Problem(s): Chronic back pain Resume home Baclofen Hold home [place] in light of acute fx and additional in-patient narcotics * Assessment & Plan Note - Etta Jimenez APRN - 04/25/2025 1:35 PM EST Associated Problem(s): IBS (irritable bowel syndrome) Resuming home medications as able Bowel regimen as appropriate * Assessment & Plan Note - Etta Jimenez APRN - 04/25/2025 1:35 PM EST Associated Problem(s): Urge incontinence In the setting of concern for polypharmacy, hold oxybutynin * Assessment & Plan Note - Etta Jimenez APRN - 04/25/2025 1:35 PM EST Associated Problem(s): T2DM (type 2 diabetes mellitus) Take Metformin at home, unclear diagnosis A1c 5.3, SSI, CC2 in-patient * Assessment & Plan Note - Etta Jimenez APRN - 04/25/2025 1:35 PM EST Associated Problem(s): Mood disorder (CMS/HCC) Known history continue home Seroquel @ 75 mg nightly * Assessment & Plan Note - Etta Jimenez APRN - 04/25/2025 1:35 PM EST Associated Problem(s): Hypomagnesemia -Continue to monitor -Replete as needed * Progress Notes - Etta Jimenez APRN - 04/25/2025 1:31 PM EST 04/25/25 Parul Leone HPI Parul Leone is a 64 y/o F w/ PMHx of HTN, MDD/Anxiety, Osteopenia, Arthritis, chronic pain CAD s/pPCI w/ CHF on Plavix, GERD, HLD, COPD, Migraines, asthma, Vitamin D deficiency, gastric bypass and IBS, admitted from OSH on 04/18 s/p fall on 04/17. Patient tripped in a hole in the yard and suffered a L periprosthetic femur fx. Concern at OSH for stroke d/t AMS, work up negative. ORT, Medicine and Neuro consulted. 04/21: ORIF periprosthetic DF fx Interval: Patient examined at the bedside. Patient sitting up in bed, family at the bedside. Vital signs stable, she is alert and oriented to person place time and situation. She states that her pain is well controlled. She denies any complaints on rounds this morning. Discussed plan of care including a dropin her HGB, will transfuse 1 unit and continue vitamin and recheck in AM. Edited by: Etta Jimenez APRN at 04/25/2025 1335 Relevant review of systems was obtained as able and is negative unless stated above in HPI. Vital signs: Vitals: 04/25/25 1100 BP: 109/72 Pulse: 84 Resp: 16 Temp: 36.9 ??C (98.4 ??F) SpO2: 100% Physical Exam Constitutional: General: She is not in acute distress. Appearance: Normal appearance. She is normal weight. She is not ill-appearing. HENT: Head: Normocephalic and atraumatic. Eyes: Pupils: Pupils are equal, round, and reactive to light. Cardiovascular: Rate and Rhythm: Normal rate. Pulmonary: Effort: Pulmonary effort is normal. No respiratory distress. Abdominal: General: Abdomen is flat. Bowel sounds are normal. Palpations: Abdomen is soft. Musculoskeletal: General: Swelling (LLE) and tenderness (LLE) present. Normal range of motion. Right lower leg: No edema. Left lower leg: Edema present. Comments: LLE with some thigh swelling, surgical dressings noted Skin: General: Skin is warm and dry. Capillary Refill: Capillary refill takes less than 2 seconds. Neurological: General: No focal deficit present. Mental Status: Mental status is at baseline. GCS: GCS eye subscore is 4. GCS verbal subscore is 5. GCS motor subscore is 6. Sensory: Sensation is intact. Motor: No weakness. Psychiatric: Mood and Affect: Mood normal. Judgment: Judgment normal. Intake/Output Summary (Last 24 hours) at 04/25/2025 1335 Last data filed at 04/25/2025 1200 Gross per 24 hour Intake 780 ml Output 1550 ml Net -770 ml Lines/Drains/Tubes: Patient Lines/Drains/Airways Status Active Airway None Output by Drain (mL) 04/23/25 0700 - 04/23/25 1859 04/23/25 1900 - 04/24/25 0659 04/24/25 0700 - 04/24/25 1859 04/24/25 1900 - 04/25/25 0659 04/25/25 0700 - 04/25/25 1335 Patient has no LDAs of requested type attached. Labs in last 18 hours: CBC WBC ?? Hb 6.8 (L) Plt ?? Hct 20.1 (L) ANC ?? INR ??, PTT ??, Anti-Xa ?? MCV ?? BMP Na ?? Cl ?? BUN ?? Glu ?? K ?? Co2 ?? Cr ?? Ca ?? iCa ?? Mg ??, Phos ?? Lactate ?? LFT AST ?? AlkPhos ?? T Prot ?? ALK ?? Bili ?? Alb ?? D.Bili ?? Lab Trends: H/H Results from last 7 days Lab Units 04/25/25 0535 04/24/25 0520 04/22/25324 HEMOGLOBIN g/dL 6.8* 7.3* 10.4* HEMATOCRIT % 20.1* 21.4* 31.2* INR Results from last 7 days Lab Units 04/20/25 0148 04/19/25 0141 INR 1.0 1.0 Cr Results from last 7 days Lab Units 04/24/25 0520 04/22/255 04/20/25147 CREATININE mg/dL 0.51* 0.48* 0.55* Medications reviewed. Vital signs reviewed. Labs reviewed. Radiography reviewed. Assessment & Plan Fall at home, initial encounter Present on Admission: Not Applicable Admit to [facility] Closed fracture of left femur Present on Admission: Yes L periprosthetic femur fx thru distal diaphysis 04/21: ORIF periprosthetic DF fx Acute encephalopathy Present on Admission: Yes Medicine and neurology consulted Echo with bubble study negative on 04/21 Neurology state low concern for stroke, no further testing recommended Attempt to resume home medications as able and appropriate FAMILIA (generalized anxiety disorder) Present on Admission: Yes Resume home meds as appropriate; Effexor and Trazodone Migraines Present on Admission: Yes Topiramate initially held per medicine, resumed on 04/21 with improved mental status CAD (coronary artery disease) Present on Admission: Yes Resume home meds as appropriate; Lipitor Hold Plavix Heart failure Present on Admission: Yes 04/21: ECHO: EF 64%. Normal diastolic function. Resume home meds as appropriate: Metoprolol, Lasix COPD (chronic obstructive pulmonary disease) Present on Admission: Yes Resume home meds as appropriate PEP/PAP Pulmonary toileting HTN (hypertension) Present on Admission: Yes Resume home meds as appropriate GERD (gastroesophageal reflux disease) Present on Admission: Yes Resume home meds as appropriate: Famotidine Hold off on PPI given osteoporosis/fragility fx Age-related osteoporosis with current pathological fracture Present on Admission: Yes Fragility consulted; recs pending Reportedly on Alendronate, restart as able Chronic back pain Present on Admission: Yes Resume home Baclofen Hold home [place] in light of acute fx and additional in-patient narcotics IBS (irritable bowel syndrome) Present on Admission: Yes Resuming home medications as able Bowel regimen as appropriate Urge incontinence Present on Admission: Yes In the setting of concern for polypharmacy, hold oxybutynin T2DM (type 2 diabetes mellitus) Present on Admission: Yes Take Metformin at home, unclear diagnosis A1c 5.3, SSI, CC2 in-patient Mood disorder (CMS/HCC) Present on Admission: Yes Known history continue home Seroquel @ 75 mg nightly Hypomagnesemia Present on Admission: Unknown -Continue to monitor -Replete as needed Acute blood loss anemia (ABLA) Present on Admission: Unknown -Continue to monitor -Transfuse for hgb < 7 -Add vitamin daily -04/25: HGB: 6.8 --> 1 unit PRBCs. Plan: - ORT: 04/21: ORIF periprosthetic DF fx. LLE WBAT - Continue to monitor mental status - Neurology consulted: low concern for stroke, no further testing recommended - Bowel regimen - DVT ppx - PT/OT - Encourage PO intake - HGB dropped to 6.8 --> 1 unit PRBCs - H/H in the AM Dispo: home with home PT/OT Etta Jimenez APRN Department of Surgery Division of Trauma/ Acute Care Surgery Secure chat preferred * Care Plan - Doreen Villalobos RN - 04/25/2025 12:18 PM EST Problem: Adult Inpatient Plan of Care Goal: Plan of Care Review Outcome: Ongoing, Progressing Flowsheets (Taken 04/25/2025 1218) Progress: improving Plan of Care Reviewed With: patient Problem: Skin Injury Risk Increased Goal: Skin Health and Integrity Outcome: Ongoing, Progressing Problem: Adult Inpatient Plan of Care Goal: Patient-Specific Goal (Individualized) Outcome: Met Flowsheets (Taken 04/25/2025 0704) Patient/Family-Specific Goals (Include Timeframe): Pt will verbalize adequate pain control by end of shift Individualized Care Needs: pain control/mbility Anxieties, Fears or Concerns: denies * Care Plan - Robyn Clark RN - 04/25/2025 6:44 AM EST Problem: Adult Inpatient Plan of Care Goal: Plan of Care Review Outcome: Ongoing, Progressing Flowsheets (Taken 04/25/2025 0644) Plan of Care Reviewed With: patient Goal: Absence of Hospital-Acquired Illness or Injury Outcome: Ongoing, Progressing Goal: Optimal Comfort and Wellbeing Outcome: Ongoing, Progressing Problem: Skin Injury Risk Increased Goal: Skin Health and Integrity Outcome: Ongoing, Progressing Problem: Infection Goal: Absence of Infection Signs and Symptoms Outcome: Ongoing, Progressing Problem: Fall Injury Risk Goal: Absence of Fall and Fall-Related Injury Outcome: Ongoing, Progressing * Care Plan - Doreen Villalobos RN - 04/24/2025 4:43 PM EST Problem: Adult Inpatient Plan of Care Goal: Plan of Care Review Outcome: Ongoing, Progressing Flowsheets (Taken 04/24/2025 1643) Progress: improving Plan of Care Reviewed With: patient Problem: Skin Injury Risk Increased Goal: Skin Health and Integrity Outcome: Ongoing, Progressing Problem: Adult Inpatient Plan of Care Goal: Patient-Specific Goal (Individualized) Outcome: Met Flowsheets (Taken 04/24/2025 0800) Patient/Family-Specific Goals (Include Timeframe): Pt will sit up in chair for at least 2 hours during shift Individualized Care Needs: pain control/mobility Anxieties, Fears or Concerns: discharge plans/pain * Assessment & Plan Note - Etta Jimenez APRN - 04/24/2025 12:59 PM EST Associated Problem(s): Fall at home, initial encounter Admit to T[facility] * Assessment & Plan Note - Etta Jimenez APRN - 04/24/2025 12:59 PM EST Associated Problem(s): Closed fracture of left femur L periprosthetic femur fx thru distal diaphysis 04/21: ORIF periprosthetic DF fx * Assessment & Plan Note - Etta Jimenez APRN - 04/24/2025 12:59 PM EST Associated Problem(s): Acute encephalopathy Medicine and neurology consulted Echo with bubble study negative on 04/21 Neurology state low concern for stroke, no further testing recommended Attempt to resume home medications as able and appropriate * Assessment & Plan Note - Etta Jimenez APRN - 04/24/2025 12:59 PM EST Associated Problem(s): FAMILIA (generalized anxiety disorder) Resume home meds as appropriate; Effexor and Trazodone * Assessment & Plan Note - Etta Jimenez APRN - 04/24/2025 12:59 PM EST Associated Problem(s): Migraines Topiramate initially held per medicine, resumed on 04/21 with improved mental status * Assessment & Plan Note - Etta Jimenez APRN - 04/24/2025 12:59 PM EST Associated Problem(s): CAD (coronary artery disease) Resume home meds as appropriate; Lipitor Hold Plavix * Assessment & Plan Note - Etta Jimenez APRN - 04/24/2025 12:59 PM EST Associated Problem(s): Heart failure 04/21: ECHO: EF 64%. Normal diastolic function. Resume home meds as appropriate: Metoprolol, Lasix * Assessment & Plan Note - Etta Jimenez APRN - 04/24/2025 12:59 PM EST Associated Problem(s): COPD (chronic obstructive pulmonary disease) Resume home meds as appropriate PEP/PAP Pulmonary toileting * Assessment & Plan Note - Etta Jimenez APRN - 04/24/2025 12:59 PM EST Associated Problem(s): HTN (hypertension) Resume home meds as appropriate * Assessment & Plan Note - Etta Jimenez APRN - 04/24/2025 12:59 PM EST Associated Problem(s): GERD (gastroesophageal reflux disease) Resume home meds as appropriate: Famotidine Hold off on PPI given osteoporosis/fragility fx * Assessment & Plan Note - Etta Jimenez APRN - 04/24/2025 12:59 PM EST Associated Problem(s): Age-related osteoporosis with current pathological fracture Fragility consulted; recs pending Reportedly on Alendronate, restart as able * Assessment & Plan Note - Etta Jimenez APRN - 04/24/2025 12:59 PM EST Associated Problem(s): Chronic back pain Resume home Baclofen Hold home [place] in light of acute fx and additional in-patient narcotics * Assessment & Plan Note - Etta Jimenez APRN - 04/24/2025 12:59 PM EST Associated Problem(s): IBS (irritable bowel syndrome) Resuming home medications as able Bowel regimen as appropriate * Assessment & Plan Note - Etta Jimenez APRN - 04/24/2025 12:59 PM EST Associated Problem(s): Urge incontinence In the setting of concern for polypharmacy, hold oxybutynin * Assessment & Plan Note - Etta Jimenez APRN - 04/24/2025 12:59 PM EST Associated Problem(s): T2DM (type 2 diabetes mellitus) Take Metformin at home, unclear diagnosis A1c 5.3, SSI, CC2 in-patient * Assessment & Plan Note - Etta Jimenez APRN - 04/24/2025 12:59 PM EST Associated Problem(s): Mood disorder (CMS/[facility] [place]) Known history continue home Seroquel @ 75 mg nightly * Assessment & Plan Note - Etta Jimenez APRN - 04/24/2025 12:59 PM EST Associated Problem(s): Hypomagnesemia -Continue to monitor -Replete as needed * Assessment & Plan Note - Etta Jimenez APRN - 04/24/2025 12:59 PM EST Associated Problem(s): Acute blood loss anemia (ABLA) -Continue to monitor -Transfuse for hgb < 7 -Add vitamin daily * Progress Notes - Etta Jimenez APRN - 04/24/2025 12:48 PM EST 04/24/25 Parul Leone HPI Parul Leone is a 64 y/o F w/ PMHx of HTN, MDD/Anxiety, Osteopenia, Arthritis, chronic pain CAD s/pPCI w/ CHF on Plavix, GERD, HLD, COPD, Migraines, asthma, Vitamin D deficiency, gastric bypass and IBS, admitted from OSH on 04/18 s/p fall on 04/17. Patient tripped in a hole in the yard and suffered a L periprosthetic femur fx. Concern at OSH for stroke d/t AMS, work up negative. ORT, Medicine and Neuro consulted. 04/21: ORIF periprosthetic DF fx Interval: Patient examined at the bedside. Patient sitting up in bed, no family at the bedside. Vital signs stable, she is alert and oriented to person place time and situation. She states that her pain is well controlled. She denies any complaints on rounds this morning. Discussed plan of care including a drop in her HGB, will add a vitamin and recheck in AM. Patient has acute rehab recommendation, but continues to decline rehab. Edited by: Etta Jimenez APRN at 04/24/2025 1036 Relevant review of systems was obtained as able and is negative unless stated above in HPI. Vital signs: Vitals: 04/24/25 1218 BP: 97/62 Pulse: 86 Resp: 14 Temp: 37 ??C (98.6 ??F) SpO2: 96% Physical Exam Constitutional: General: She is not in acute distress. Appearance: Normal appearance. She is normal weight. She is not ill-appearing. HENT: Head: Normocephalic and atraumatic. Eyes: Pupils: Pupils are equal, round, and reactive to light. Cardiovascular: Rate and Rhythm: Normal rate. Pulmonary: Effort: Pulmonary effort is normal. No respiratory distress. Abdominal: General: Abdomen is flat. Bowel sounds are normal. Palpations: Abdomen is soft. Musculoskeletal: General: Swelling (LLE) and tenderness (LLE) present. Normal range of motion. Right lower leg: No edema. Left lower leg: Edema present. Comments: LLE with some thigh swelling, surgical dressings noted Skin: General: Skin is warm and dry. Capillary Refill: Capillary refill takes less than 2 seconds. Neurological: General: No focal deficit present. Mental Status: Mental status is at baseline. GCS: GCS eye subscore is 4. GCS verbal subscore is 5. GCS motor subscore is 6. Sensory: Sensation is intact. Motor: No weakness. Psychiatric: Mood and Affect: Mood normal. Judgment: Judgment normal. Intake/Output Summary (Last 24 hours) at 04/24/2025 1248 Last data filed at 04/24/2025 1200 Gross per 24 hour Intake 840 ml Output 700 ml Net 140 ml Lines/Drains/Tubes: Patient Lines/Drains/Airways Status Active Airway None Output by Drain (mL) 04/22/25 0700 - 04/22/25 1859 04/22/25 1900 - 04/23/25 0659 04/23/25 0700 - 04/23/25 1859 04/23/25 1900 - 04/24/25 0659 04/24/25 0700 - 04/24/25 1248 Patient has no LDAs of requested type attached. Labs in last 18 hours: CBC WBC ?? Hb 7.3 (L) Plt ?? Hct 21.4 (L) ANC ?? INR ??, PTT ??, Anti-Xa ?? MCV ?? BMP Na 136 Cl 103 BUN 20 Glu 120 (H) K 3.6 Co2 25 Cr 0.51 (L) Ca 8.2 (L) iCa ?? Mg 1.7 (L), Phos ?? Lactate ?? LFT AST ?? AlkPhos ?? T Prot ?? ALK ?? Bili ?? Alb ?? D.Bili ?? Lab Trends: H/H Results from last 7 days Lab Units 04/24/25 0520 04/22/25 0325 04/20/25 0148 HEMOGLOBIN g/dL 7.3* 10.4* 11.9 HEMATOCRIT % 21.4* 31.2* 33.8* INR Results from last 7 days Lab Units 04/20/25 0148 04/19/25 0141 INR 1.0 1.0 Cr Results from last 7 days Lab Units 04/24/25 0520 04/22/25 0325 04/20/25 0148 CREATININE mg/dL 0.51* 0.48* 0.55* Medications reviewed. Vital signs reviewed. Labs reviewed. Radiography reviewed. Assessment & Plan Fall at home, initial encounter Present on Admission: Not Applicable Admit to [facility] Closed fracture of left femur Present on Admission: Yes L periprosthetic femur fx thru distal diaphysis 04/21: ORIF periprosthetic DF fx Acute encephalopathy Present on Admission: Yes Medicine and neurology consulted Echo with bubble study negative on 04/21 Neurology state low concern for stroke, no further testing recommended Attempt to resume home medications as able and appropriate FAMILIA (generalized anxiety disorder) Present on Admission: Yes Resume home meds as appropriate; Effexor and Trazodone Migraines Present on Admission: Yes Topiramate initially held per medicine, resumed on 04/21 with improved mental status CAD (coronary artery disease) Present on Admission: Yes Resume home meds as appropriate; Lipitor Hold Plavix Heart failure Present on Admission: Yes 04/21: ECHO: EF 64%. Normal diastolic function. Resume home meds as appropriate: Metoprolol, Lasix COPD (chronic obstructive pulmonary disease) Present on Admission: Yes Resume home meds as appropriate PEP/PAP Pulmonary toileting HTN (hypertension) Present on Admission: Yes Resume home meds as appropriate GERD (gastroesophageal reflux disease) Present on Admission: Yes Resume home meds as appropriate: Famotidine Hold off on PPI given osteoporosis/fragility fx Age-related osteoporosis with current pathological fracture Present on Admission: Yes Fragility consulted; recs pending Reportedly on Alendronate, restart as able Chronic back pain Present on Admission: Yes Resume home Baclofen Hold home [place] in light of acute fx and additional in-patient narcotics IBS (irritable bowel syndrome) Present on Admission: Yes Resuming home medications as able Bowel regimen as appropriate Urge incontinence Present on Admission: Yes In the setting of concern for polypharmacy, hold oxybutynin T2DM (type 2 diabetes mellitus) Present on Admission: Yes Take Metformin at home, unclear diagnosis A1c 5.3, SSI, CC2 in-patient Mood disorder (CMS/HCC) Present on Admission: Yes Known history continue home Seroquel @ 75 mg nightly Hypomagnesemia Present on Admission: Unknown -Continue to monitor -Replete as needed Acute blood loss anemia (ABLA) Present on Admission: Unknown -Continue to monitor -Transfuse for hgb < 7 -Add vitamin daily Plan: - ORT: 04/21: ORIF periprosthetic DF fx. LLE WBAT - Continue to monitor mental status - Neurology consulted: low concern for stroke, no further testing recommended - Bowel regimen - DVT ppx - PT/OT - Encourage PO intake - AM labs: H/H - Start daily vitamin Dispo: home with home PT/OT Etta Jimenez APRN Department of Surgery Division of Trauma/ Acute Care Surgery Secure chat preferred * Progress Notes - Dana Maher RN - 04/24/2025 11:37 AM EST Case Management Adult Progress Note Parul Leone 64 y.o. female CSN: [id number] Admission: 04/18/2025 10:23 PM Primary Problem: Fall at home, initial encounter Anticipated Discharge Date: tbd Medically Ready for Discharge: Anticipated Today Additional Comments CM contacted to assist with discharge HHPT/OT and DME. Referral sent to [facility] for RW to be delivered to the bedside before discharge. [facility] accepted and will call patient to start services. Dana Maher RN * Care Plan - David Reyes RN - 04/24/2025 12:46 AM EST Problem: Adult Inpatient Plan of Care Goal: Plan of Care Review Outcome: Ongoing, Progressing Goal: Patient-Specific Goal (Individualized) Outcome: Ongoing, Progressing Goal: Absence of Hospital-Acquired Illness or Injury Outcome: Ongoing, Progressing Goal: Optimal Comfort and Wellbeing Outcome: Ongoing, Progressing Problem: Skin Injury Risk Increased Goal: Skin Health and Integrity Outcome: Ongoing, Progressing Problem: Infection Goal: Absence of Infection Signs and Symptoms Outcome: Ongoing, Progressing Problem: Fall Injury Risk Goal: Absence of Fall and Fall-Related Injury Outcome: Ongoing, Progressing * Assessment & Plan Note - Etta Jimenez APRN - 04/23/2025 4:02 PM EST Associated Problem(s): Fall at home, initial encounter Admit to S[facility] * Assessment & Plan Note - Etta Jimenez APRN - 04/23/2025 4:02 PM EST Associated Problem(s): Closed fracture of left femur L periprosthetic femur fx thru distal diaphysis 04/21: ORIF periprosthetic DF fx * Assessment & Plan Note - Etta Jimenez APRN - 04/23/2025 4:02 PM EST Associated Problem(s): Acute encephalopathy Medicine and neurology consulted Echo with bubble study negative on 04/21 Neurology state low concern for stroke, no further testing recommended Attempt to resume home medications as able and appropriate * Assessment & Plan Note - Etta Jimenez APRN - 04/23/2025 4:02 PM EST Associated Problem(s): FAMILIA (generalized anxiety disorder) Resume home meds as appropriate; Effexor Hold Trazodone * Assessment & Plan Note - Etta Jimenez APRN - 04/23/2025 4:02 PM EST Associated Problem(s): Migraines Topiramate initially held per medicine, resumed on 04/21 with improved mental status * Assessment & Plan Note - Etta Jimenez APRN - 04/23/2025 4:02 PM EST Associated Problem(s): CAD (coronary artery disease) Resume home meds as appropriate; Lipitor Hold Plavix * Assessment & Plan Note - Etta Jimenez APRN - 04/23/2025 4:02 PM EST Associated Problem(s): Heart failure ECHO ordered Resume home meds as appropriate: Metoprolol, Lasix * Assessment & Plan Note - Etta Jimenez APRN - 04/23/2025 4:02 PM EST Associated Problem(s): COPD (chronic obstructive pulmonary disease) Resume home meds as appropriate PEP/PAP Pulmonary toileting * Assessment & Plan Note - Etta Jimenez APRN - 04/23/2025 4:02 PM EST Associated Problem(s): HTN (hypertension) Resume home meds as appropriate * Assessment & Plan Note - Etta Jimenez APRN - 04/23/2025 4:02 PM EST Associated Problem(s): GERD (gastroesophageal reflux disease) Resume home meds as appropriate: Famotidine Hold off on PPI given osteoporosis/fragility fx * Assessment & Plan Note - Etta Jimenez APRN - 04/23/2025 4:02 PM EST Associated Problem(s): Age-related osteoporosis with current pathological fracture Fragility consulted; recs pending Reportedly on Alendronate, restart as able * Assessment & Plan Note - Etta Jimenez APRN - 04/23/2025 4:02 PM EST Associated Problem(s): Chronic back pain Resume home Baclofen Hold home [place] in light of acute fx and additional in-patient narcotics * Assessment & Plan Note - Etta Jimenez APRN - 04/23/2025 4:02 PM EST Associated Problem(s): IBS (irritable bowel syndrome) Resuming home medications as able Bowel regimen as appropriate * Assessment & Plan Note - Etta Jimenez APRN - 04/23/2025 4:02 PM EST Associated Problem(s): Urge incontinence In the setting of concern for polypharmacy, hold oxybutynin * Assessment & Plan Note - Etta Jimenez APRN - 04/23/2025 4:02 PM EST Associated Problem(s): T2DM (type 2 diabetes mellitus) Take Metformin at home, unclear diagnosis A1c 5.3, SSI, CC2 in-patient * Assessment & Plan Note - Etta Jimenez APRN - 04/23/2025 4:02 PM EST Associated Problem(s): Mood disorder (CMS/HCC) Known history 04/23: re-start home Seroquel @ 75 mg nightly * Assessment & Plan Note - Etta Jimenez APRN - 04/23/2025 4:02 PM EST Associated Problem(s): Hypomagnesemia -Continue to monitor -Replete as needed * Progress Notes - Etta Jimenez APRN - 04/23/2025 3:59 PM EST 04/23/25 Parul Leone HPI Parul Leone is a 64 y/o F w/ PMHx of HTN, MDD/Anxiety, Osteopenia, Arthritis, chronic pain CAD s/pPCI w/ CHF on Plavix, GERD, HLD, COPD, Migraines, asthma, Vitamin D deficiency, gastric bypass and IBS, admitted from OSH on 04/18 s/p fall on 04/17. Patient tripped in a hole in the yard and suffered a L periprosthetic femur fx. Concern at OSH for stroke d/t AMS, work up negative. ORT, Medicine and Neuro consulted. 04/21: ORIF periprosthetic DF fx Interval: Patient examined at the bedside. Patient sitting up in bed, family at the bedside. Vital signs stable, she is alert and oriented to person place time and situation. She states that her pain is well controlled. She has been working with PT/OT. Discussed plan of care including restarting home Seroquel, multimodal pain control, PT/OT. Patient has acute rehab recommendation, but states that she prefers to go home and complete outpatient PT/OT. Edited by: Etta Jimenez APRN at 04/23/2025 5805 Relevant review of systems was obtained as able and is negative unless stated above in HPI. Vital signs: Vitals: 04/23/25 1151 BP: (!) 109/48 Pulse: 107 Resp: Temp: 37.1 ??C (98.8 ??F) SpO2: 97% Physical Exam Constitutional: General: She is not in acute distress. Appearance: Normal appearance. She is normal weight. She is not ill-appearing. HENT: Head: Normocephalic and atraumatic. Eyes: Pupils: Pupils are equal, round, and reactive to light. Cardiovascular: Rate and Rhythm: Normal rate. Pulmonary: Effort: Pulmonary effort is normal. No respiratory distress. Abdominal: General: Abdomen is flat. Bowel sounds are normal. Palpations: Abdomen is soft. Musculoskeletal: General: Swelling (LLE) and tenderness (LLE) present. Normal range of motion. Right lower leg: No edema. Left lower leg: Edema present. Comments: LLE with some thigh swelling, surgical dressings noted Skin: General: Skin is warm and dry. Capillary Refill: Capillary refill takes less than 2 seconds. Neurological: General: No focal deficit present. Mental Status: Mental status is at baseline. GCS: GCS eye subscore is 4. GCS verbal subscore is 5. GCS motor subscore is 6. Sensory: Sensation is intact. Motor: No weakness. Psychiatric: Mood and Affect: Mood normal. Judgment: Judgment normal. Intake/Output Summary (Last 24 hours) at 04/23/2025 1559 Last data filed at 04/22/20251999 Gross per 24 hour Intake 240 ml Output -- Net 240 ml Lines/Drains/Tubes: Patient Lines/Drains/Airways Status Active Airway None Output by Drain (mL) 04/21/25 0700 - 04/21/25 1859 04/21/25 1900 - 04/22/25 0659 04/22/25 0700 - 04/22/25 1859 04/22/25 1900 - 04/23/25 0659 04/23/25 0700 - 04/23/25 1559 Patient has no LDAs of requested type attached. Labs in last 18 hours: CBC WBC ?? Hb ?? Plt ?? Hct ?? ANC ?? INR ??, PTT ??, Anti-Xa ?? MCV ?? BMP Na ?? Cl ?? BUN ?? Glu ?? K ?? Co2 ?? Cr ?? Ca ?? iCa ?? Mg ??, Phos ?? Lactate ?? LFT AST ?? AlkPhos ?? T Prot ?? ALK ?? Bili ?? Alb ?? D.Bili ?? Lab Trends: H/H Results from last 7 days Lab Units 04/22/25 0325 04/20/25 0148 04/19/25 0051 HEMOGLOBIN g/dL 10.4* 11.9 13.0 HEMATOCRIT % 31.2* 33.8* 38.4 INR Results from last 7 days Lab Units 04/20/25 0148 04/19/25 0141 INR 1.0 1.0 Cr Results from last 7 days Lab Units 04/22/25 0325 04/20/25 0148 04/19/25 1438 CREATININE mg/dL 0.48* 0.55* 0.66 Medications reviewed. Vital signs reviewed. Labs reviewed. Radiography reviewed. Assessment & Plan Fall at home, initial encounter Present on Admission: Not Applicable Admit to [facility] Closed fracture of left femur Present on Admission: Yes L periprosthetic femur fx thru distal diaphysis 04/21: ORIF periprosthetic DF fx Acute encephalopathy Present on Admission: Yes Medicine and neurology consulted Echo with bubble study negative on 04/21 Neurology state low concern for stroke, no further testing recommended Attempt to resume home medications as able and appropriate FAMILIA (generalized anxiety disorder) Present on Admission: Yes Resume home meds as appropriate; Effexor Hold Trazodone Migraines Present on Admission: Yes Topiramate initially held per medicine, resumed on 04/21 with improved mental status CAD (coronary artery disease) Present on Admission: Yes Resume home meds as appropriate; Lipitor Hold Plavix Heart failure Present on Admission: Yes ECHO ordered Resume home meds as appropriate: Metoprolol, Lasix COPD (chronic obstructive pulmonary disease) Present on Admission: Yes Resume home meds as appropriate PEP/PAP Pulmonary toileting HTN (hypertension) Present on Admission: Yes Resume home meds as appropriate GERD (gastroesophageal reflux disease) Present on Admission: Yes Resume home meds as appropriate: Famotidine Hold off on PPI given osteoporosis/fragility fx Age-related osteoporosis with current pathological fracture Present on Admission: Yes Fragility consulted; recs pending Reportedly on Alendronate, restart as able Chronic back pain Present on Admission: Yes Resume home Baclofen Hold home [place] in light of acute fx and additional in-patient narcotics IBS (irritable bowel syndrome) Present on Admission: Yes Resuming home medications as able Bowel regimen as appropriate Urge incontinence Present on Admission: Yes In the setting of concern for polypharmacy, hold oxybutynin T2DM (type 2 diabetes mellitus) Present on Admission: Yes Take Metformin at home, unclear diagnosis A1c 5.3, SSI, CC2 in-patient Mood disorder (CMS/HCC) Present on Admission: Yes Known history 04/23: re-start home Seroquel @ 75 mg nightly Hypomagnesemia Present on Admission: Unknown -Continue to monitor -Replete as needed Plan: - ORT: 04/21: ORIF periprosthetic DF fx. LLE WBAT - Resume home Vraylar today 04/22. Will continue to monitor mental status - Neurology consulted: low concern for stroke, no further testing recommended - Bowel regimen - DVT ppx - PT/OT - Encourage PO intake - AM labs: H/H, Mg, BMP - Restart home seroqel 75 mg at bedtime. Dispo: acute rehab Etta Jimenez APRN Department of Surgery Division of Trauma/ Acute Care Surgery Secure chat preferred * Progress Notes - Sean Hay MD - 04/23/2025 8:19 AM EST ORTHOPAEDIC SURGERY PROGRESS NOTE SUBJECTIVE POD#2 from ORIF periprosthetic DF fx. No acute events overnight reported by patient. Doing well. Pain controlled. Tolerating diet. No nausea, vomiting, fevers or chills. No stated concerns. OBJECTIVE Visit Vitals BP 110/70 (BP Location: Right arm, Patient Position: Lying) Pulse 95 Temp 36.7 ??C (98.1 ??F) (Oral) Ht 1.6 m (5' 3 ) Wt 58.5 kg (129 lb) SpO2 95% BMI 22.85 kg/m?? Labs in last 18 hours CBC WBC ?? Hb ?? Plt ?? Hct ?? ANC ?? INR ??, PTT ??, Anti-Xa ?? BMP Na ?? Cl ?? BUN ?? Glu ?? K ?? Co2 ?? Cr ?? Ca ?? iCa ?? Mg ??, Phos ?? Lactate ?? LFT AST ?? AlkPhos ?? T Prot ?? ALK ?? Bili ?? Alb ?? D.Bili ?? PHYSICAL EXAMINATION No acute distress Non labored breathing Peripheral perfusion intact FOCUSED MUSCULOSKELETAL EXAM Left lower extremity Inspection: surgical dressings in place, minimal strikethrough Motor: Motor intact TA, GSC, FHL, EHL Sensory exam: SILT in Sural, Saphenous, Deep peroneal, Superficial peroneal, Tibial nerve distributions Vascular: Palpable DP and PT pulse, toes WWP with CR <2 sec ASSESSMENT AND PLAN Parul Leone is a 64 y.o. female patient with L periprosthetic DF fx s/p ORIF (04/21) Edited by: Toribio Hernadez MD at 04/21/2025 1716 Mobility Orders Mobility Protocol: General - Mobility Guidelines Extremity Precautions: Extremity Precautions Extremity: LLE Mobility Restrictions (LLE): Weight bear as tolerated (WBAT) Type of Brace (LLE): None Other mobility precautions: No other precautions required Awaiting placement DVT prophylaxis Pain control per primary Nutritional optimization Bowel regimen PT/OT Follow up: With Robina James in [facility] on 05/04 Disposition: Admitted to T -- Sean Hay MD Orthopedic Surgery PGY-1 [facility] Personal Pager: [phone] Orthopaedic Trauma Service Pager: [phone] Orthopaedic Recon/Spine/Foot and Ankle Service Pager: [phone] Cosigned by Wai Motley MD at 04/24/2025 7:32 AM EST * Care Plan - David Reyes RN - 04/23/2025 4:04 AM EST Problem: Adult Inpatient Plan of Care Goal: Plan of Care Review Outcome: Ongoing, Progressing Goal: Patient-Specific Goal (Individualized) Outcome: Ongoing, Progressing Goal: Absence of Hospital-Acquired Illness or Injury Outcome: Ongoing, Progressing Goal: Optimal Comfort and Wellbeing Outcome: Ongoing, Progressing Problem: Skin Injury Risk Increased Goal: Skin Health and Integrity Outcome: Ongoing, Progressing Problem: Infection Goal: Absence of Infection Signs and Symptoms Outcome: Ongoing, Progressing Problem: Fall Injury Risk Goal: Absence of Fall and Fall-Related Injury Outcome: Ongoing, Progressing * Query Clarification Note - Keiko Valverde MD - 04/22/2025 6:19 PM EST Physician Clarification A review of the medical record indicates additional documentation may be indicated. Please review below and update the documentation accordingly. Please provide further specificity for the type of encephalopathy such as: [x]Due to drugs (polypharmacy) []Toxic []Due to (please specify) []Other explanation (please specify) This documentation will become part of the patient's medical record. * Progress Notes - Desiree Prince - 04/22/2025 2:41 PM EST Case Management Adult Progress Note Parul Leone 64 y.o. female CSN: [id number] Admission: 04/18/2025 10:23 PM Primary Problem: Fall at home, initial encounter Anticipated Discharge Date: 04/24/25 Has Discharge Plans Changed? No Medicare Second Notice: Housing Circumstances: Not Applicable Housing Circumstances Action Taken: Other N/A Medically Ready for Discharge: Anticipated in 2-4 Days Additional Comments SW spoke with MDs this date re: pt's plan of care. According to MDs, this pt is not medically stable for DC this date but is anticipated to be stable within 72 hrs. The pt has PT/OT recs for acute rehab, and has been referred to [facility]. SILVIO spoke with liaison Jing this date, who will assess the pt. Pt pending post- op PT/OT updates. No further SW concerns identified at this time. SW will continue to remain available and will follow up with DC planning and needs as appropriate. Desiree Prince * Assessment & Plan Note - María Toledo APRN - 04/22/2025 1:00 PM EST Associated Problem(s): Closed fracture of left femur L periprosthetic femur fx thru distal diaphysis 04/21: ORIF periprosthetic DF fx * Assessment & Plan Note - María Toledo APRN - 04/22/2025 1:00 PM EST Associated Problem(s): IBS (irritable bowel syndrome) Resuming home medications as able Bowel regimen as appropriate * Assessment & Plan Note - María Toledo APRN - 04/22/2025 1:00 PM EST Associated Problem(s): Mood disorder (CMS/HCC) Known history Resume home medications as able * Assessment & Plan Note - María Toledo APRN - 04/22/2025 1:00 PM EST Associated Problem(s): Migraines Topiramate initially held per medicine, resumed on 04/21 with improved mental status * Assessment & Plan Note - María Toledo APRN - 04/22/2025 1:00 PM EST Associated Problem(s): Fall at home, initial encounter Admit to [facility] * Assessment & Plan Note - María Toledo APRN - 04/22/2025 1:00 PM EST Associated Problem(s): Acute encephalopathy Medicine and neurology consulted Echo with bubble study negative on 04/21 Neurology state low concern for stroke, no further testing recommended Attempt to resume home medications as able and appropriate * Assessment & Plan Note - María Toledo APRN - 04/22/2025 1:00 PM EST Associated Problem(s): FAMILIA (generalized anxiety disorder) Resume home meds as appropriate; Effexor Hold Trazodone * Assessment & Plan Note - María Toledo APRN - 04/22/2025 1:00 PM EST Associated Problem(s): CAD (coronary artery disease) Resume home meds as appropriate; Lipitor Hold Plavix * Assessment & Plan Note - María Toledo APRN - 04/22/2025 1:00 PM EST Associated Problem(s): Heart failure ECHO ordered Resume home meds as appropriate: Metoprolol, Lasix * Assessment & Plan Note - María Toledo APRN - 04/22/2025 1:00 PM EST Associated Problem(s): COPD (chronic obstructive pulmonary disease) Resume home meds as appropriate PEP/PAP Pulmonary toileting * Assessment & Plan Note - María Toledo APRN - 04/22/2025 1:00 PM EST Associated Problem(s): HTN (hypertension) Resume home meds as appropriate * Assessment & Plan Note - María Toledo APRN - 04/22/2025 1:00 PM EST Associated Problem(s): GERD (gastroesophageal reflux disease) Resume home meds as appropriate: Famotidine Hold off on PPI given osteoporosis/fragility fx * Assessment & Plan Note - María Toledo APRN - 04/22/2025 1:00 PM EST Associated Problem(s): Age-related osteoporosis with current pathological fracture Fragility consulted; recs pending Reportedly on Alendronate, restart as able * Assessment & Plan Note - María Toledo APRN - 04/22/2025 1:00 PM EST Associated Problem(s): Chronic back pain Resume home Baclofen Hold home [place] in light of acute fx and additional in-patient narcotics * Assessment & Plan Note - María Toledo APRN - 04/22/2025 1:00 PM EST Associated Problem(s): Urge incontinence In the setting of concern for polypharmacy, hold oxybutynin * Assessment & Plan Note - María Toledo APRN - 04/22/2025 1:00 PM EST Associated Problem(s): T2DM (type 2 diabetes mellitus) Take Metformin at home, unclear diagnosis A1c 5.3, SSI, CC2 in-patient * Progress Notes - María Toledo APRN - 04/22/2025 12:57 PM EST 04/22/25 Parul Leone HPI Parul Leone is a 64 y/o F w/ PMHx of HTN, MDD/Anxiety, Osteopenia, Arthritis, chronic pain CAD s/pPCI w/ CHF on Plavix, GERD, HLD, COPD, Migraines, asthma, Vitamin D deficiency, gastric bypass and IBS, admitted from OSH on 04/18 s/p fall on 04/17. Patient tripped in a hole in the yard and suffered a L periprosthetic femur fx. Concern at OSH for stroke d/t AMS, work up negative. ORT, Medicine and Neuro consulted. 04/21: ORIF periprosthetic DF fx Interval: Ms Leone was seen this morning while resting in bed. She is awake and alert on RA. NAD with VSS, with mild tachycardia noted. Continues to answer orientation questions appropriately. Does endorse some pain, which improves with use of pain medications. She is tolerating PO diet without N/V during morning exam, but later in the afternoon complained of nausea to RN. Last BM 04/21. Discussed with patient plan for the day including evaluation with PT/OT. All questions addressed during AM assessment. Edited by: María Toledo APRN at 04/22/2025 1257 Relevant review of systems was obtained as able and is negative unless stated above in HPI. Vital signs: Vitals: 04/22/25 1212 BP: 103/68 Pulse: 98 Resp: Temp: 36.5 ??C (97.7 ??F) SpO2: 96% Physical Exam Constitutional: General: She is not in acute distress. Appearance: Normal appearance. She is normal weight. She is not ill-appearing. HENT: Head: Normocephalic and atraumatic. Eyes: Pupils: Pupils are equal, round, and reactive to light. Cardiovascular: Rate and Rhythm: Normal rate. Pulmonary: Effort: Pulmonary effort is normal. No respiratory distress. Abdominal: General: Abdomen is flat. Bowel sounds are normal. Palpations: Abdomen is soft. Musculoskeletal: General: Swelling (LLE) and tenderness (LLE) present. Normal range of motion. Comments: LLE with some thigh swelling, surgical dressings noted Skin: General: Skin is warm and dry. Capillary Refill: Capillary refill takes less than 2 seconds. Neurological: General: No focal deficit present. Mental Status: Mental status is at baseline. GCS: GCS eye subscore is 4. GCS verbal subscore is 5. GCS motor subscore is 6. Sensory: Sensation is intact. Motor: No weakness. Psychiatric: Mood and Affect: Mood normal. Judgment: Judgment normal. Intake/Output Summary (Last 24 hours) at 04/22/2025 1300 Last data filed at 04/21/2025 2020 Gross per 24 hour Intake 1290 ml Output -- Net 1290 ml Lines/Drains/Tubes: Patient Lines/Drains/Airways Status Active Airway None Output by Drain (mL) 04/20/25 0700 - 04/20/25 1859 04/20/25 1900 - 04/21/25 0659 04/21/25 0700 - 04/21/25 1859 04/21/25 1900 - 04/22/25 0659 04/22/25 0700 - 04/22/25 1300 Patient has no LDAs of requested type attached. Labs in last 18 hours: CBC WBC 8.07 Hb 10.4 (L) Plt 224 Hct 31.2 (L) ANC ?? INR ??, PTT ??, Anti-Xa ?? MCV 90 BMP Na 135 (L) Cl 101 BUN 19 Glu 136 (H) K 4.2 Co2 22 Cr 0.48 (L) Ca 8.2 (L) iCa ?? Mg 1.4 (L), Phos 3.6 Lactate ?? LFT AST ?? AlkPhos ?? T Prot ?? ALK ?? Bili ?? Alb ?? D.Bili ?? Lab Trends: H/H Results from last 7 days Lab Units 04/22/25 0325 04/20/25 0148 04/19/25 0051 HEMOGLOBIN g/dL 10.4* 11.9 13.0 HEMATOCRIT % 31.2* 33.8* 38.4 INR Results from last 7 days Lab Units 04/20/25 0148 04/19/25 0141 INR 1.0 1.0 Cr Results from last 7 days Lab Units 04/22/25 0325 04/20/25 0148 04/19/25 1438 CREATININE mg/dL 0.48* 0.55* 0.66 Medications reviewed. Vital signs reviewed. Labs reviewed. Radiography reviewed. Assessment and Plan: Assessment & Plan Fall at home, initial encounter Present on Admission: Not Applicable Admit to [facility] Closed fracture of left femur Present on Admission: Yes L periprosthetic femur fx thru distal diaphysis 04/21: ORIF periprosthetic DF fx Acute encephalopathy Present on Admission: Yes Medicine and neurology consulted Echo with bubble study negative on 04/21 Neurology state low concern for stroke, no further testing recommended Attempt to resume home medications as able and appropriate FAMILIA (generalized anxiety disorder) Present on Admission: Yes Resume home meds as appropriate; Effexor Hold Trazodone Migraines Present on Admission: Yes Topiramate initially held per medicine, resumed on 04/21 with improved mental status CAD (coronary artery disease) Present on Admission: Yes Resume home meds as appropriate; Lipitor Hold Plavix Heart failure Present on Admission: Yes ECHO ordered Resume home meds as appropriate: Metoprolol, Lasix COPD (chronic obstructive pulmonary disease) Present on Admission: Yes Resume home meds as appropriate PEP/PAP Pulmonary toileting HTN (hypertension) Present on Admission: Yes Resume home meds as appropriate GERD (gastroesophageal reflux disease) Present on Admission: Yes Resume home meds as appropriate: Famotidine Hold off on PPI given osteoporosis/fragility fx Age-related osteoporosis with current pathological fracture Present on Admission: Yes Fragility consulted; recs pending Reportedly on Alendronate, restart as able Chronic back pain Present on Admission: Yes Resume home Baclofen Hold home [place] in light of acute fx and additional in-patient narcotics IBS (irritable bowel syndrome) Present on Admission: Yes Resuming home medications as able Bowel regimen as appropriate Urge incontinence Present on Admission: Yes In the setting of concern for polypharmacy, hold oxybutynin T2DM (type 2 diabetes mellitus) Present on Admission: Yes Take Metformin at home, unclear diagnosis A1c 5.3, SSI, CC2 in-patient Mood disorder (CMS/HCC) Present on Admission: Yes Known history Resume home medications as able Plan: - ORT: 04/21: ORIF periprosthetic DF fx. LLE WBAT - Resume home Vraylar today 04/22. Will continue to monitor mental status - Neurology consulted: low concern for stroke, no further testing recommended - Bowel regimen - DVT ppx - PT/OT - Encourage PO intake - Lab holiday Dispo: [place] Edited by: María Toledo APRN at 04/22/2025 1300 María Toledo APRN * Progress Notes - Robyn Bowman - 04/22/2025 11:54 AM EST Physical Therapy Treatment Patient Name: Parul Leone Today's Date: 04/22/2025 PT Discharge Recommendations: Acute rehab Equipment Recommended: Defer to facility Treatment Time: 27 minutes Subjective Patient was more alert and oriented compared to her initial evaluation. Patient did not remember that therapy team had seen her in ED. Participants in Care Family/Caregiver Present: No Varnish Filterer: Not Applicable Presentation Oxygen Therapy: None (Room air) Lines and Tubes: Intravenous access Pre-Session: Supine, Head of bed elevated, Lines intact Pre-Session Comments: RN and pt agreeable to session. Post-Session: Sitting in chair, RN notified, Call light in reach, Chair alarm, Lines intact Post-Session Comments: All needs within immediate reach. Left with construction analyst. Precautions Left Lower Extremity Weight Bearing Status: Weight Bearing as Tolerated ROM Precautions: LLE NWB Medical Precautions: Fall precautions Objective Pain Patient rated pain an 8.5-9/10 on entry to room. While sitting EOB patient mentioned pain had increased but gave a lower number to rate. Notified RN of patient's pain levels. RN stated that patient would be ready for more pain medication 30 minutes post-transfer to chair. Patient stated leg was throbbing after moving into chair. Delirium Screening RASS: Alert and calm Confusion Assessment Method-ICU (CAM-ICU/PCAM-ICU) Feature 3: Altered Level of Consciousness: Negative A&O x 4. Therapeutic Activity (27 minutes) Patient participated in PT interventions targeting functional strength and endurance to improve mobility. See bed mobility, transfers, and balance sections for details. Additional time required for monitoring of patient tolerance and room set-up for safe mobility. Bed Mobility Bed Mobility Exam: Scooting/Bridging Level of Ford: Contact guard Physical/Nonphysical Assist: Set-up required, Verbal Cues Assistive Device: Bed rails Bed Mobility Exam: Supine to Sit Level of Ford: Contact guard (Patient denied adamently when asked if she needed support forLLE. Patient required extra time due to pain and wanting to move herself. Used RLE to move LLE.) Physical/Nonphysical Assist: Set-up required, Verbal Cues, HOB elevated Transfers Transfer Exam: Sit to stand Level of [place]: Maximum assist (25% patient's effort) (Patient mentioned being nauseous after sit to stand.) Physical/Nonphysical Assist: Set-up required, Nonverbal cues (demo/gestures), Verbal Cues Assistive Device: Hand held assist Transfer Exam: Stand to Sit Level of [place]: Maximum assist (25% patient's effort) Physical/Nonphysical Assist: Set-up required, Nonverbal cues (demo/gestures), Verbal Cues, Additional assist utilized for safety Assistive Device: Hand held assist Transfer Exam: Bed to Chair/Chair to Bed Level of Ford: Maximum assist (25% patient's effort) (Patient needed assistance w/ LLE to get to chair from bed. Chair arm dropped.) Physical/Nonphysical Assist: Set-up required, Verbal Cues, Nonverbal cues (demo/gestures), Additional assist utilized for safety (Moved chair to EOB to increase ease of transfer due to patient pain.) Type of Transfer: Stand-pivot Assistive Device: Hand held assist Balance Postural Appearance Posture: Stooped posture, Rounded shoulders Static Sitting Balance Static Sitting-Balance Support: Feet supported, Left upper extremity support, Right upper extremitysupport Static Sitting-Level of Assistance: Standby assist (SBA due to patient complaint of nausea.) Static Standing Balance Static Standing-Balance Support: Right upper extremity support, Left upper extremity support (SUPERVISOR RECEIVING AND PROCESSING) Static Standing-Level of Assistance: Maximum assistance (due to pain and fatigue) Static Standing - Interventions: Patient unable to stand >10secs due to pain. Dynamic Standing Balance Dynamic Standing-Balance Support: Right upper extremity support, Left upper extremity support (SUPERVISOR RECEIVING AND PROCESSING X2) Dynamic Standing-Balance: Lateral weight shifts Dynamic Standing Level of Assistance: Maximum assistance Assessment Patient now s/p ORIF LLE (04/21) with updated WBAT LLE precautions. Patient seemed to have a high amount of pain causing patient to move more gingerly. Patient did not want assistance when moving unless absolutely necessary due to her pain. Patient was able to meet one of her initial goals for the transition from supine to sit. Patient needed encouragement and cues on importance of movement following surgery. Patient would benefit from continued therapy to help obtain her functional baseline again. Patient is not safe to return home at this time due to level of assistance needed for mobility. PT Recommendations Discharge Destination: Acute rehab Discharge Equipment: Defer to facility Plan Continue to plan of care as indicated, per patient tolerance. PT Goals PT GOAL DETAILS Goal Established Date Time Frame Goal Status PT Goal 1: Patient will be able to scoot to the EOB with SBA in order to decrease caregiver burden.04/19/25 2 weeks PT Goal 2: Patient will be able to transition supine <> sit with minimal assistance to increase functional capacity. 04/19/25 2 weeks Goal met PT Goal 3: Patient will transition sit <> stand with minimal assistance to increase functional mobility. 04/19/25 2 weeks PT Goal 4: Patient will be able to transition bed <> chair with minimal assistance to increase functional participation. 04/19/25 2 weeks PT Goal 5: Patient will be able to propel a wheelchair 100 feet, with rest breaks as needed, to increase functional independence. 04/19/25 2 weeks Written by Robyn Bowman on 04/22/25 at 3:29 PM. Cosigned by Bobbi Alves, PT at 04/22/2025 4:13 PM EST Associated attestation - Bobbi Alves PT - 04/22/2025 4:13 PM EST I agree with the below PT treatment note and assessment. Janae Alves, PT * Progress Notes - Chel Pearson - 04/22/2025 11:53 AM EST OCCUPATIONAL THERAPY TREATMENT PATIENT DATA Patient Name Parul Leone Session Date 04/22/2025 OT Discharge Recommendations Acute rehab Equipment Recommendations Defer to facility MOBILITY GUIDELINES Mobility Protocol: General - Mobility Guidelines Extremity Precautions: Extremity Precautions Extremity: LLE Mobility Restrictions (LLE): Weight bear as tolerated (WBAT) Type of Brace (LLE): None Other mobility precautions: No other precautions required PRECAUTIONS Medical Precautions Medical Precautions: Fall precautions HOME LIVING/SET-UP Lives With Family (sister) Home Type House Home Equipment None Home Layout One level Bathroom Layout (unable to obtain due to altered cognition.) Additional Comments Pt mentating appropriately on this date, confirms lives with sister. CM documentation sister has verified this information. Further home information required. Pt limited by pain on this date. PRIOR LEVEL OF FUNCTION Receives help from No assist required prior to admission Level of Mobility Ambulatory- community Mobility [place] Independent gait without device History of Falls Unable to to obtain due to altered cognition ADL Performance Independent PRESENTATION Oxygen None (Room air) Telemetry No Lines and Tubes Peripheral IV 04/19/25 Anterior;Left;Proximal Forearm (Active) Peripheral IV 04/21/25 Right Arm (Active) Pre-Session Supine, Head of bed elevated, Lines intact RN and pt agreeable to session. Post-Session Sitting in chair, RN notified, Call light in reach, Chair alarm, Lines intact All needs within immediate reach. Left with construction analyst. Bracing (if applicable) N/a SUBJECTIVE PARTICIPANTS IN CARE Patient/Caregiver Comments Pt participates throughout session. Visitors Present No Varnish Filterer (if applicable) N/a OBJECTIVE PAIN Pt initially rates pain in LLE as 8.5-9/10, with transition from supine to EOB, pt endorses increase in pain level, however, gives lower rating (8/10). When prompted, pt reports pain was 6-7/10 priorto mobility and increased to 8/10. Pain consistently in LLE throughout. Pt requests pain medicationat end of session. RN notified. COGNITION SCREENING Overall Cognitive Status Within Functional Limits Arousal/Alertness Appropriate responses to stimuli Mood/Behavior Alert, Anxious Orientation Oriented X4 Command Following Single Step Commands: Consistently Multi-Step Commands: Consistently Method of Communication Verbal Additional Observations Safety Judgment: Good awareness of safety precautions Awareness of Errors: Good awareness of errors made Deficit Awareness: Fully aware of deficits Attention Span: Appears intact OT INTERVENTIONS SELF-CARE Treatment Minutes (if applicable) 26 Comments Skilled services provided via: Environmental preparation for safe access to treatment area, to reduce risk for falls and adverse reactions. Pacing and grading of tasks to promote functional independence and just right challenge. Pt requires increased time throughout session due to LLE pain and global weakness. Pt educated on LLE WBAT precautions, demonstrates 100% adherence Pt sits EOB ~5-7 minutes with SBA for unsupported dynamic and static sitting balance. Pt presents with stooped posture, rounded shoulder, and frequently bilateral eye closing. Pt endorses LLE pain and nausea upon transfer to EOB. RN made aware and pt provided with drink and emesis bin. RN notified.Olfactory cue of alcohol prep pad utilized to reduce symptoms Pt transfers from EOB to chair with stand pivot transfer towards right side to lead with unaffectedlower extremity, requiring MAX A SUPERVISOR RECEIVING AND PROCESSING x2 due to LLE pain, fatigue and impaired balance. Pt requires step by step verbal, tactile sequencing for body positioning for functional transfers to promote independence, safety Pt educated on role of skilled occupational therapy services including frequency of session and discharge planning to promote carryover of care. Pt receptive of information and verbalizes understanding Level of [place] Adaptive Equipment Utilized Interventions Feeding Independent Edge of bed Pt independently participates in drinking from cup with straw. Pt has adequate BUE for upper body self-care tasks. Grooming Setup Edge of bed Pt provided with wet washcloth to complete face washing and promote alertness and attention. Lower Body Dressing Sock Level of Assistance: Dependent RLE sock donned due to pain, decreased ROM and impaired balance. Sock aid and hydrometeorologist brought with intention to educate pt and utilize this session, but deferred due to pain and nausea. Health Management Pt educated on the importance of remaining upright in chair for 1-2 hours 3x per day to reduce risk for deconditioning, pressure sores, and pneumonia. Pt receptive to information and verbalizes understanding. BED MOBILITY Level of [place] Physical/Non- physical Assist Adaptive Equipment Utilized Scooting/ Bridging Contact guard Set-up required, Verbal Cues Supine to Sit Contact guard (Patient denied adamently when asked if she needed support for LLE. Patient required extra time due to pain and wanting to move herself. Used RLE to move LLE.) Set-up required, Verbal Cues, HOB elevated TRANSFERS Level of [place] Physical/Non- physical Assist Adaptive Equipment Utilized Sit to Stand Maximum assist (25% patient's effort) (Patient mentioned being nauseous after sit to stand.) Set-up required, Nonverbal cues (demo/gestures), Verbal Cues Hand held assist Stand to sit Maximum assist (25% patient's effort) Set-up required, Nonverbal cues (demo/gestures),Verbal Cues, Additional assist utilized for safety Hand held assist Bed to Chair Maximum assist (25% patient's effort) (Patient needed assistance w/ LLE to get to chair from bed. Chair arm dropped.) Stand-pivot Set-up required, Verbal Cues, Nonverbal cues (demo/gestures), Additional assist utilized for safety (Moved chair to EOB to increase ease of transfer due to patient pain.) Hand held assist ASSESSMENT Pt tolerates session with stable vital signs and no adverse reactions. Pt participates with improved performance on this date, including increased functional mobility, decreased levels of assist, andimproved cognitive status. Pt continues to be severely limited by pain and rapid fatigue. Prior to admission, pt was independent in self-care and navigated the community without AD. Currently, pt is DEP for lower body self-care tasks and cannot navigate household distances or emergency egress with AD, placing pt at a significant risk for falls and readmission. Pt continues to be most appropriate for acute rehab upon discharge from current setting, as she requires access to frequent medical supervision, 24/7 nursing access, and daily intensive OT/PT/VICTIM ADVOCATE services. It is expected that with this support pt will make significant functional gains. OT RECOMMENDATIONS Discharge Destination Acute rehab Discharge Equipment Defer to facility PLAN Continue OT plan of care, including functional mobility and ADL training. OT GOALS OT GOAL DETAILS Goal Established Date Time Frame Goal Status OT Goal 1: Pt will complete BSC transfer with MIN A and LRAD. 04/19/25 2 weeks OT Goal 2: Pt will be oriented x4 in 3/3 sessions. 04/19/25 2 weeks OT Goal 3: Pt will complete lower body dressing with MIN A, LRAD and AE prn. 04/19/25 2 weeks OT Goal 4: Pt will be IND with BUE HEP. 04/19/25 2 weeks Written by Chel Pearson on 04/22/25 at 4:02 PM. Cosigned by Jennifer Sanders at 04/22/2025 4:18 PM EST Associated attestation - Jennifer Sanders - 04/22/2025 4:18 PM EST As the supervising therapist, I have reviewed and agree with this document written by the student therapist for this patient on this date/time. I was present for the intervention and was immediately available for assistance had it been needed. Jennifer Sanders OTR/[facility] * Nursing Note - Samina Gaytan, RN - 04/22/2025 11:40 AM EST Orthopedic Transition Nurse Note General: Spoke with: Patient, Bedside RN, and Primary Team Assessment and Interventions: Assessed: Dressing Dressing Interventions: CDI Wound 04/21/25 Surgical Closed Surgical Incision Leg Anterior;Left;Upper (Active) Wound Assessment Clean;Dry 04/22/25 0800 Margins Unable to assess 04/21/25 1750 Anna-Wound Assessment Dry;Clean 04/22/25 0800 Closure Unable to assess 04/21/25 1750 Dressing Dry dressing 04/21/25 2020 Dressing Status Clean;Dry;Intact 04/22/25 0800 Education: Education provided on: Dressing, Signs and symptoms of infection, Weight bearing mobility, Pain protocol/management, and Ortho trauma booklet given Plan of Care: Follow up with Robina James on 05/04/2025 at 0830. Op-Plan: Completed Contact Card Given: yes Comments: Patient in chair. Educated patient on the importance of [place] in promoting wound healing. Orthopedic team recommends post-operative patients take at least 2 packets per day of [place] for 14 days aftersurgery. Awaiting acute rehab. LLE: If bandage becomes wet, soiled, or falls off it may be replaced with a clean dry gauze dressing as needed. For medical questions or concerns after discharge, please contact the Orthopedic Transition Nurse at [phone] Saturday through Saturday 8:00 am to 2:30 pm. If you feel your concern is a medical emergency please call 911 immediately. Based upon recent changes to [place] law related to prescribing opioid pain medications, our providers will not provide more than a 14 day supply of controlled medications following a major surgery or trauma from the date of your injury or hospital discharge. [place], & 201 JUST[place] 9:260. * Care Plan - Annie Sunshine RN - 04/22/2025 9:57 AM EST Problem: Adult Inpatient Plan of Care Goal: Plan of Care Review Outcome: Ongoing, Progressing Flowsheets Taken 04/22/20255 by Robyn Pineda RN Progress: improving Plan of Care Reviewed With: patient Taken 04/21/20251746 by Mandy Benedict RN Outcome Evaluation: changes needed for testing Goal: Absence of Hospital-Acquired Illness or Injury Intervention: Identify and Manage Fall Risk Flowsheets (Taken 04/22/2025 0900) Safety Promotion/Fall Prevention: activity supervised assistive device/personal items within reach clutter-free environment maintained fall prevention program maintained lighting adjusted mobility aid in reach room organization consistent safety round/check completed Goal: Optimal Comfort and Wellbeing Intervention: Monitor Pain and Promote Comfort Flowsheets (Taken 04/22/2025 0955) Pain Management Interventions: medication (see MAR) care clustered pain management plan reviewed with patient/caregiver Intervention: Provide Person-Centered Care Flowsheets (Taken 04/22/20255 by Robyn Pineda RN) Trust Relationship/Rapport: care explained choices provided emotional support provided empathic listening provided questions answered questions encouraged reassurance provided * Progress Notes - Sean Hay MD - 04/22/2025 5:55 AM EST ORTHOPAEDIC SURGERY PROGRESS NOTE SUBJECTIVE POD#1 from ORIF periprosthetic DF fx. No acute events overnight reported by patient. Doing well. Pain controlled. Tolerating diet. No nausea, vomiting, fevers or chills. No stated concerns. OBJECTIVE Visit Vitals BP 116/73 (BP Location: Right arm, Patient Position: Lying) Pulse (!) 111 Temp 37.1 ??C (98.8 ??F) (Oral) Ht 1.6 m (5' 3 ) Wt 58.5 kg (129 lb) SpO2 96% BMI 22.85 kg/m?? Labs in last 18 hours CBC WBC 8.07 Hb 10.4 (L) Plt 224 Hct 31.2 (L) ANC ?? INR ??, PTT ??, Anti-Xa ?? BMP Na 135 (L) Cl 101 BUN 19 Glu 136 (H) K 4.2 Co2 22 Cr 0.48 (L) Ca 8.2 (L) iCa ?? Mg 1.4 (L), Phos 3.6 Lactate ?? LFT AST ?? AlkPhos ?? T Prot ?? ALK ?? Bili ?? Alb ?? D.Bili ?? PHYSICAL EXAMINATION No acute distress Non labored breathing Peripheral perfusion intact FOCUSED MUSCULOSKELETAL EXAM Left lower extremity Inspection: surgical dressings in place, minimal strikethrough Motor: Motor intact TA, GSC, FHL, EHL Sensory exam: SILT in Sural, Saphenous, Deep peroneal, Superficial peroneal, Tibial nerve distributions Vascular: Palpable DP and PT pulse, toes WWP with CR <2 sec ASSESSMENT AND PLAN Parul Leone is a 64 y.o. female patient with L periprosthetic DF fx s/p ORIF (04/21) Edited by: Toribio Hernadez MD at 04/21/2025 8455 Mobility Orders Mobility Protocol: General - Mobility Guidelines Extremity Precautions: Extremity Precautions Extremity: LLE Mobility Restrictions (LLE): Weight bear as tolerated (WBAT) Type of Brace (LLE): None Other mobility precautions: No other precautions required DVT prophylaxis Pain control per primary Nutritional optimization Bowel regimen PT/OT Follow up: With Robina James in [facility] on 05/04 Disposition: Admitted to T -- Sean Hay MD Orthopedic Surgery PGY-1 [facility] Personal Pager: [phone] Orthopaedic Trauma Service Pager: [phone] Orthopaedic Recon/Spine/Foot and Ankle Service Pager: [phone] Cosigned by Wai Motley MD at 04/24/2025 7:32 AM EST * Care Plan - Robyn Pineda RN - 04/22/2025 12:06 AM EST Problem: Adult Inpatient Plan of Care Goal: Plan of Care Review Outcome: Ongoing, Progressing Flowsheets (Taken 04/22/20255) Progress: improving Plan of Care Reviewed With: patient Goal: Patient-Specific Goal (Individualized) Outcome: Ongoing, Progressing Goal: Absence of Hospital-Acquired Illness or Injury Outcome: Ongoing, Progressing Goal: Optimal Comfort and Wellbeing Outcome: Ongoing, Progressing Intervention: Provide Person-Centered Care Flowsheets (Taken 04/22/20255) Trust Relationship/Rapport: care explained choices provided emotional support provided empathic listening provided questions answered questions encouraged reassurance provided Problem: Skin Injury Risk Increased Goal: Skin Health and Integrity Outcome: Ongoing, Progressing Problem: Infection Goal: Absence of Infection Signs and Symptoms Outcome: Ongoing, Progressing Problem: Fall Injury Risk Goal: Absence of Fall and Fall-Related Injury Outcome: Ongoing, Progressing * Significant Event - Clovis Nugent MD - 04/21/2025 9:15 PM EST Images from the original note were not included. [facility] [place] [facility] Department of Surgery Division of Acute Care / Emergency General Surgery Post Operative Check: Subjective: Procedure: L periprosthetic distal femur fracture ORIF Patient currently reports that pain is well controlled with medications. Patient has not eaten after surgery but, denies any nausea or vomiting. Patient has not ambulated and has voided since surgery. Denies any shortness of breath, chest pain, or any other acute complaints at this time. Objective: Vitals: Visit Vitals BP 128/75 Pulse 97 Temp 36.4 ??C (97.5 ??F) Resp 15 IN/Out: Intake/Output Summary (Last 24 hours) at 04/21/20252131 Last data filed at 04/21/2025 1755 Gross per 24 hour Intake 1050 ml Output -- Net 1050 ml Physical Exam: GENERAL: Well-developed, well-nourished, not in acute distress, Resting comfortably in bed. NECK: Normal range of motion, supple, no JVD CARD: Regular rate RESP: Normal pulmonary effort, symmetric expansion, non-labored, not in respiratory distress GI: Soft, appropriately tender post operatively, non-distended, no guarding or rebound. Extremities: No edema, Small amount of strikethrough on proximal dressing, firm but easily compressible anterior thigh, grossly moving toes and ankle, SILT on entire foot. SKIN: Warm, dry, and without rash, sores, or lesions NEURO: Mental status at baseline, oriented to person, place, and time Incisions: covered Labs: WBC ?? Hgb ?? PLT ?? HCT ?? INR ?? PTT ?? antiXa ?? Na ?? Cl ?? BUN ?? Gluc ?? K ?? CO2 ?? Creat ?? Ca ?? iCa ?? Mg ?? Phos ?? pH ?? pCO2 ?? pO2 ?? SPO2 ?? FIO2 ?? HCO3 ?? BE ?? Lactate ?? Assessment and Plan: Parul Leone is a 64 y.o. female admitted for Fall now s/p ORIF L periprosthetic distal femur fracture - Diet Status: regular - Anticoagulation/DVT ppx: lovenox - MMPC - Level of care: Continue Current Level of Care I have answered and addressed all issues and concerns from the patient and nursing staff. I have notified senior resident/attending director hr communications with any issues or concerns. Clovis Nugent MD Orthopaedic Surgery PGY1 [facility] Personal Pager: [phone] Orthopaedic Trauma Service Pager: [phone] Orthopaedic Recon/Spine/Foot and Ankle Service Pager: [phone] * Anesthesia PACU Signout - Antionette Rizvi MD - 04/21/2025 7:11 PM EST Patient: Parul Leone Anesthesia Type: general Vitals Value Taken Time BP 117/85 04/21/25 19:00 Temp 36.9 ??C (98.5 ??F) 04/21/25 17:50 Pulse 89 04/21/25 19:10 Resp 13 04/21/25 19:00 SpO2 95 % 04/21/25 19:10 Vitals shown include unfiled device data. Anesthesia PACU Signout Patient location during evaluation: PACU Patient participation: complete - patient participated Level of consciousness: baseline and awake Pain management: adequate (pain score 0-3) Airway patency: natural airway Hydration status: acceptable PONV: none Cardiovascular status: acceptable and hemodynamically stable Respiratory status: acceptable, spontaneous ventilation, nonlabored ventilation and nasal cannula Discharge Disposition: admit to inpatient unit Cosigned by John Mosley MD at 04/21/2025 7:29 PM EST Associated attestation - John Mosley MD - 04/21/2025 7:29 PM EST Signature only. * Assessment & Plan Note - María oTledo APRN - 04/21/2025 5:46 PM EST Associated Problem(s): Acute encephalopathy Medicine and neurology consulted Echo with bubble study negative on 04/21 Neurology state low concern for stroke, no further testing recommended Attempt to resume home medications as able and appropriate * Assessment & Plan Note - María Toledo APRN - 04/21/2025 5:46 PM EST Associated Problem(s): CAD (coronary artery disease) Resume home meds as appropriate; Lipitor Hold Plavix * Assessment & Plan Note - María Toledo APRN - 04/21/2025 5:46 PM EST Associated Problem(s): Closed fracture of left femur L periprosthetic femur fx thru distal diaphysis Ortho following, OR tentative 04/21 * Assessment & Plan Note - María Toledo APRN - 04/21/2025 5:46 PM EST Associated Problem(s): Migraines Topiramate initially held per medicine, resumed on 04/21 with improved of mental status * Assessment & Plan Note - María Toledo APRN - 04/21/2025 5:46 PM EST Associated Problem(s): Fall at home, initial encounter Admit to [facility] * Assessment & Plan Note - María Toledo APRN - 04/21/2025 5:46 PM EST Associated Problem(s): FAMILIA (generalized anxiety disorder) Resume home meds as appropriate; Effexor Hold Trazodone * Assessment & Plan Note - María Toledo APRN - 04/21/2025 5:46 PM EST Associated Problem(s): Heart failure ECHO ordered Resume home meds as appropriate: Metoprolol, Lasix * Assessment & Plan Note - María Toledo APRN - 04/21/2025 5:46 PM EST Associated Problem(s): COPD (chronic obstructive pulmonary disease) Resume home meds as appropriate PEP/PAP Pulmonary toileting * Assessment & Plan Note - María Toledo APRN - 04/21/2025 5:46 PM EST Associated Problem(s): HTN (hypertension) Resume home meds as appropriate * Assessment & Plan Note - María Toledo APRN - 04/21/2025 5:46 PM EST Associated Problem(s): GERD (gastroesophageal reflux disease) Resume home meds as appropriate: Famotidine Hold off on PPI given osteoporosis/fragility fx * Assessment & Plan Note - María Toledo APRN - 04/21/2025 5:46 PM EST Associated Problem(s): Age-related osteoporosis with current pathological fracture Fragility consulted; recs pending Reportedly on Alendronate, restart as able * Assessment & Plan Note - María Toledo APRN - 04/21/2025 5:46 PM EST Associated Problem(s): Chronic back pain Resume home Baclofen Hold home [place] in light of acute fx and additional in-patient narcotics * Assessment & Plan Note - María Toledo APRN - 04/21/2025 5:46 PM EST Associated Problem(s): IBS (irritable bowel syndrome) Hold dicyclomine/colestipol Bowel regimen as appropriate * Assessment & Plan Note - María Toledo APRN - 04/21/2025 5:46 PM EST Associated Problem(s): Urge incontinence In the setting of concern for polypharmacy, hold oxybutynin * Assessment & Plan Note - María Toledo APRN - 04/21/2025 5:46 PM EST Associated Problem(s): T2DM (type 2 diabetes mellitus) Take Metformin at home, unclear diagnosis A1c 5.3, SSI, CC2 in-patient * Progress Notes - María Toledo APRN - 04/21/2025 5:44 PM EST 04/21/25 Parul Leone HPI Parul Leone is a 64 y/o F w/ PMHx of HTN, MDD/Anxiety, Osteopenia, Arthritis, chronic pain CAD s/pPCI w/ CHF on Plavix, GERD, HLD, COPD, Migraines, asthma, Vitamin D deficiency, gastric bypass and IBS, admitted from OSH on 04/18 s/p fall on 04/17. Patient tripped in a hole in the yard and suffered a L periprosthetic femur fx. Concern at OSH for stroke d/t AMS, work up negative. ORT, Medicine and Neuro consulted. Interval: Ms Leone was seen this morning while resting in bed. She is awake and alert on RA. NAD with VSS. Answering orientation questions appropriately. Does endorse some pain, which improves with use of painmedications. She has been NPO pending OR with ortho but denies N/V. Patient endorses known history of IBS, and states she has been having diarrhea. No AM labs available for review. Discussed plan of care with patient including possible plans for OR with ortho when able and completion of echo with bubble study. Edited by: María Toledo APRN at 04/21/2025 1737 Relevant review of systems was obtained as able and is negative unless stated above in HPI. Vital signs: Vitals: 04/21/25 1347 BP: 120/72 Pulse: 78 Resp: Temp: 36.9 ??C (98.5 ??F) SpO2: 92% Physical Exam Constitutional: General: She is not in acute distress. Appearance: Normal appearance. She is normal weight. She is not ill-appearing. HENT: Head: Normocephalic and atraumatic. Mouth/Throat: Mouth: Mucous membranes are moist. Pharynx: Oropharynx is clear. Eyes: Pupils: Pupils are equal, round, and reactive to light. Cardiovascular: Rate and Rhythm: Normal rate and regular rhythm. Heart sounds: No murmur heard. Pulmonary: Effort: Pulmonary effort is normal. No respiratory distress. Breath sounds: Normal breath sounds. No stridor. Abdominal: General: Abdomen is flat. Bowel sounds are normal. Palpations: Abdomen is soft. Musculoskeletal: General: Swelling (LLE) and tenderness (LLE) present. Normal range of motion. Comments: TROM in place LLE Skin: General: Skin is warm and dry. Capillary Refill: Capillary refill takes less than 2 seconds. Neurological: General: No focal deficit present. Mental Status: Mental status is at baseline. She is disoriented and confused. GCS: GCS eye subscore is 4. GCS verbal subscore is 5. GCS motor subscore is 6. Sensory: Sensation is intact. Motor: No weakness. Psychiatric: Mood and Affect: Mood normal. Judgment: Judgment normal. Intake/Output Summary (Last 24 hours) at 04/21/2025 1745 Last data filed at 04/21/2025 1726 Gross per 24 hour Intake 1000 ml Output -- Net 1000 ml Lines/Drains/Tubes: Patient Lines/Drains/Airways Status Active Airway None Output by Drain (mL) 04/19/25 0700 - 04/19/25 1859 04/19/25 1900 - 04/20/25 0659 04/20/25 0700 - 04/20/25 1859 04/20/25 1900 - 04/21/25 0659 04/21/25 0700 - 04/21/25 1745 Patient has no LDAs of requested type attached. Labs in last 18 hours: CBC WBC ?? Hb ?? Plt ?? Hct ?? ANC ?? INR ??, PTT ??, Anti-Xa ?? MCV ?? BMP Na ?? Cl ?? BUN ?? Glu ?? K ?? Co2 ?? Cr ?? Ca ?? iCa ?? Mg ??, Phos ?? Lactate ?? LFT AST ?? AlkPhos ?? T Prot ?? ALK ?? Bili ?? Alb ?? D.Bili ?? Lab Trends: H/H Results from last 7 days Lab Units 04/20/25 0148 04/19/25 0051 HEMOGLOBIN g/dL 11.9 13.0 HEMATOCRIT % 33.8* 38.4 INR Results from last 7 days Lab Units 04/20/25 0148 04/19/25 0141 INR 1.0 1.0 Cr Results from last 7 days Lab Units 04/20/25 0148 04/19/25 1438 04/19/25 0051 CREATININE mg/dL 0.55* 0.66 0.71 Medications reviewed. Vital signs reviewed. Labs reviewed. Radiography reviewed. Assessment and Plan: Assessment & Plan Fall at home, initial encounter Present on Admission: Not Applicable Admit to [facility] Closed fracture of left femur Present on Admission: Yes L periprosthetic femur fx thru distal diaphysis Ortho following, OR tentative 04/21 Acute encephalopathy Present on Admission: Yes Medicine and neurology consulted Echo with bubble study negative on 04/21 Neurology state low concern for stroke, no further testing recommended Attempt to resume home medications as able and appropriate FAMILIA (generalized anxiety disorder) Present on Admission: Yes Resume home meds as appropriate; Effexor Hold Trazodone Migraines Present on Admission: Yes Topiramate initially held per medicine, resumed on 04/21 with improved of mental status CAD (coronary artery disease) Present on Admission: Yes Resume home meds as appropriate; Lipitor Hold Plavix Heart failure Present on Admission: Yes ECHO ordered Resume home meds as appropriate: Metoprolol, Lasix COPD (chronic obstructive pulmonary disease) Present on Admission: Yes Resume home meds as appropriate PEP/PAP Pulmonary toileting HTN (hypertension) Present on Admission: Yes Resume home meds as appropriate GERD (gastroesophageal reflux disease) Present on Admission: Yes Resume home meds as appropriate: Famotidine Hold off on PPI given osteoporosis/fragility fx Age-related osteoporosis with current pathological fracture Present on Admission: Yes Fragility consulted; recs pending Reportedly on Alendronate, restart as able Chronic back pain Present on Admission: Yes Resume home Baclofen Hold home [place] in light of acute fx and additional in-patient narcotics IBS (irritable bowel syndrome) Present on Admission: Yes Hold dicyclomine/colestipol Bowel regimen as appropriate Urge incontinence Present on Admission: Yes In the setting of concern for polypharmacy, hold oxybutynin T2DM (type 2 diabetes mellitus) Present on Admission: Yes Take Metformin at home, unclear diagnosis A1c 5.3, SSI, CC2 in-patient Plan: - ORT: OR tentative for 04/21 L femur, NWB LLE in TROM brace locked in extension - Medicine consult- acute onset of encephalopathy, now signed off - Resume home trazodone at decreased dose, and resumed home topimax - ECHO w/ bubble study completed and negative - Neurology consulted: low concern for stroke, no further testing recommended - Fragility consulted - Bowel regimen - DVT ppx - PT/OT - Resume diet post op - AM labs ordered Dispo: pending OR and PT/OT Edited by: María Toledo APRN at 04/21/2025 1744 María Toledo APRN * Clinician Note - Jennifer Sanders - 04/21/2025 3:28 PM EST Occupational Therapy Attempt Patient Name: Parul Leone Today's Date: 04/21/2025 Patient was attempted to be seen by occupational therapy 04/21/2025 for OT Treatment however (pt to OR). Occupational therapy team will follow-up when medically appropriate. Written by Jennifer Sanders on 04/21/25 at 3:28 PM. * Op Note - Wai Motley MD - 04/21/2025 3:21 PM EST Operative Note Date: 04/21/25 Location: [facility] Name: Parul Leone, : 1960, Diagnoses: Pre-op Diagnosis 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 I was present or immediately available for all parts of the procedure Tip Tester(s): * Toribio Hernadez MD - Resident - Assisting * George Morejon MD - Resident - Assisting * Aleisha Trujillo MD - Resident - Assisting Anesthesia: General ASA: III Blood Administration: Blood Product Administration History None Estimated Blood Loss: 100mL Drains: * None in log * Implants Type Name Action Serial No. K-WIRE [id number] DRILL TIP GLOBUS MED - [id number] Implanted K-WIRE [id number] DRILL TIP GLOBUS MED - [id number] Implanted PLATE LATERAL NARROW DISTAL FEMUR LT 11H GLOBUS - [id number] Implanted SCREW 5.5X70MM FULLY THREADED SS - [id number] Implanted SCREW 4.5X60MM COCR LOCKING - [id number] Implanted SCREW 4.5X70MM COCR LOCKING - [id number] Implanted SCREW 4.5X75MM COCR LOCKING GLOBUS MED - [id number] Implanted SCREW 4.5X34MM SS NON-LOCKING GLOBUS MED - [id number] Implanted SCREW 4.5X36MM SS NON-LOCKING GLOBUS MED - [id number] Implanted SCREW 4.5X64MM COCR LOCKING GLOBUS MED - [id number] Implanted Specimen: None Findings: left distal femur fracture; Indications: Parul Leone is an 64 y.o. female with previous left total knee arthroplasty who sustained a left distal femur fracture from ground level fall. In efforts to allow for early mobility to prevent the complications of immobility including pain, bed sores, poor function and ultimately mortality, the patient was indicated for fixation of their fracture. Given the patient's prior left total knee arthroplasty, she was indicated to undergo fixation using plate/screws. We discussed the risks and benefits associated with the procedure with the patient/patient care givers including pain, bleeding, infection, damage to surrounding tissues such as blood vessels and nerves, nonunion, malunion, malrotation, shortening, continued pain, lateral thigh pain, blood clots and the risks of anaesthesia including pain, bleeding, infection, damage to surrounding tissues such as the blood vessels and nerves. After discussing these risks and the potential benefits, the patient/family wished to proceed. After preoperative optimization, the patient was taken to the operating room as soon as operative time was available. Narrative: The patient was met again in the preoperative holding area where consent was affirmed. The operative extremity was marked. The patient was taken to the operating room and underwent general anesthesia. Patient was transferred to a radiolucent operating table and placed supine with all bony prominences well- padded. Thereafter, the patient was prepped and draped in the usual sterile fashion. A timeout was called with all members in the operating room in agreement regarding the identity of the patient and planned procedure including laterality. Preoperative antibiotics were administered within 1 hour of incision. We began by placing a sterile tourniquet which was insufflated to 250mmHg after limb was exsanguinated using esmarch. Next, we performed a lateral approach to the distal femur. After incising IT band, we dissected down to lateral capsule/retinaculum distally and proximally we elevated vastus lateralis from the lateral intermuscular septum. The fracture was visualized along the lateral cortex of the distal femur. We used a curette and pituitary rongeur to debride debris from fracture. Reduction was achieved via manual traction and compression across the condyles. We then selected an appropriately-sized locking distal femur plate using fluoroscopic guidance. The plate was slid under the vastus along the lateral femoral cortex. The plate position was again confirmed fluoroscopically and secured with K-wires. After ensuring the plate was seated adequately along the lateral femoral cortex proximally, we placed a cancellous non-locking screw distally to seat the plate onto bone distally. We then placed a cortical screw just proximal to the level of the fracture to seat the plate onto bone proximally. We then placed locking screws distally using fluoroscopic guidance to ensure appropriate screw length andtrajectory. We then placed two kickstand screws to ensure fixation of the medial condyle. Finally, 3 additional cortical screws were placed proximally. After all distal and proximal screws were placed, final intraoperative fluoroscopic images were obtained. Tourniquet was let down and hemostasis ach ieved. We then irrigated all wounds using copious amounts of normal saline. We placed 1g vancomycin powderinto the wound. The patient's wounds were closed using 0 vicryl, 2-0 vicryl, and nylon sutures for the skin. The wounds were dressed with xeroform, gauze and covaderm. The patient was extubated and transferred to PACU in stable condition. Post Operative Plan: The patient will be weight bearing as tolerated. The patient will receive postoperative antibiotics and DVT Prophylaxis as per institutional protocol. The patient will receive PT/OT during their stay. The patient will followup in 2 weeks time for a post operative visit and thenat 6 weeks post operatively with xrays in the trauma clinic. Complications: None; patient tolerated the procedure well. Submitted by: Toribio Hernadez MD - 04/23/2025 * Discharge Instr - Other Orders - Samina Gaytan RN - 04/21/2025 3:07 PM EST Do not take out stitches or rene. Leave the bandage on. If left leg bandage becomes wet, soiled, or falls off it may be replaced with a clean dry gauze dressing as needed. Shower at any time. Avoid soaking your wound. * Discharge Instr - Activity - Samina Gaytan RN - 04/21/2025 3:07 PM EST Move around as you are able. Do not drive while taking narcotic medications. Use assistive equipment as instructed. Weight bearing as tolerated through left leg. * Discharge Instr - AVS First Page - Samina Gaytan RN - 04/21/2025 3:07 PM EST Reasons to call: Feels warm or hot to the touch Is red or dark pink Is tight or swollen and looks shiny Becomes more tender or sore to the touch Wound smells bad Wound is draining pus, bleeding or coming open Temperature is above 101.5 F Pain is not relieved by medications * Progress Notes - Toribio Hernadez MD - 04/21/2025 2:04 PM EST Orthopaedic Surgery Progress Note SUBJECTIVE: No acute events overnight. Doing well. Pain controlled. Understands plan for OR today, all questions answered. OBJECTIVE: Vitals: 04/21/25 1347 BP: 120/72 Pulse: 78 Resp: Temp: 36.9 ??C (98.5 ??F) SpO2: 92% Left Lower Extremity: Well-healed midline incision from prior TKA. Valgus deformity to LLE 4/5 TA/GSC/EHL/FHL SILT DP/SP/Sural/Saph/Tib nerve dist. cap refill <2sec, toes wwp ASSESSMENT/PLAN: Parul Leone is a 64 y.o. F with L periprosthetic DF fx -To OR today -NPO since midnight -Marked and consented Toribio Hernadez Dept. of Orthopaedic Surgery and Sports Medicine Orthopedic Reconstructiion ([facility]) Service Pager: [phone] Orthopedic Trauma ([facility]) Service Pager: [phone] Cosigned by Wai Motley MD at 04/24/2025 7:29 AM EST * Progress Notes - Oscar Jarvis DO - 04/21/2025 1:13 PM EST Images from the original note were not included. GME Consult Progress Note 04/21/25 Subjective: -pt seen and examined at bedside this morning. She is doing well and has no concerns voiced. Pt is A&Ox4 and feels at her baseline. She is informed of her OR time for the day and that hospital medicine service is pleased with recovery of mental status and resolution of her acute encephalopathy. - pt denied chest pain, soa, headaches, nausea, fevers, chills or any other modifying factors. ROS: Constitutional: denies fevers, chills CV: denies chest pain, palpitations Resp: denies cough, SOA GI: denies nausea, vomiting Objective: Vitals: Temp: [36.6 ??C (97.9 ??F)-37.3 ??C (99.1 ??F)] 36.9 ??C (98.4 ??F) Heart Rate: [74-90] 85 Resp: [18] 18 BP: (96-111)/(66-74) 111/73 Physical Exam: General: appears stated age, no apparent distress HEENT: anicteric sclera, no conjunctival drainage CV: normal rate with regular rhythm, no appreciable MRG, no LE edema Resp: no appreciable wheezes/crackles, nonlabored breathing on RA GI: soft, no TTP, nondistended Neuro: awake and alert, no gross deficits, A&O x4 Psych: appropriate mood with congruent affect, cooperative during exam Labs and Imaging: CBC BMP WBC ?? Hb ?? Plt ?? Na ?? Cl ?? BUN ?? Glu ?? Hct ?? K ?? Co2 ?? Cr ?? Assessment and Plan: 64-year-old female W/history of HTN, MDD/anxiety/mood disorders, chronic pain (on chronic opiates and baclofen), CAD s/p PCI W/CHF (unknown EF), GERD, migraines, hyperlipidemia, IBS, T2-DM presentingwith a acutely altered mentation following fall with left sided femur fracture #Acute encephalopathy, RESOLVED - Interestingly, acute encephalopathy occurring following fall rather than preceding fall - Patient with no history of similar bouts of encephalopathy - Significant vascular risk factors including history of coronary artery disease, reportedly compliant on Lipitor; no history of TIA nor CVA - CT scans x2 of the head have revealed no evidence of stroke - On Plavix secondary to being s/p PCI - No known loss of consciousness event nor head trauma but fall technically unwitnessed - No reported seizure-like activity nor classic sequela like postictal confusion, incontinence, nortongue biting - No recent signs or symptoms of infection--minimal likely reactive leukocytosis and afebrile - Lives with the family who adamantly deny illicit substance use and alcohol use - Does has a history of sleeve gastrectomy technically putting her at risk of vitamin deficiencies - Physical exam most concerning for aphasia - Significant concerns for polypharmacy as well, though it would be atypical for patient to have a sudden onset of aphasia following a fall--Topamax noted to be able to cause aphasia particularly in the setting of polypharmacy as exhibited in this patient Recommendations: - Metabolic workup: B12, Vitamin D - No indication for further infectious workup - Guillaume's phenomenon, evolving TIA/stroke, and atypical migraine aura remain on ddx: agreed with consult to Neurology for further evaluation and potential imaging recommendations - Would hold topiramate, hold Seroquel, hold Vraylar, hold trazodone. Resume home dose Effexor, resume at least half home dose baclofen, pain control per primary (patient on chronic [place]), would limit Atarax to no more than 25mg q8 - would put in place delirium precautions post-op - with resolved mental status and neurology evaluation, hospital medicine will sign off at this time - please reach back out with new consult if any further concerns develop Other Active Conditions: #Fall with left-sided femur fracture - Management per primary; would note that patient has a home prescription for [place] which may require adjustments to multimodal pain control Chronic medical conditions: MDD/FAMILIA - Resume Effexor, hold home antipsychotics as above - Will hold trazodone Migraines - Hold topiramate - If headaches develop, would recommend treating W/migraine cocktail per neuro reccs CAD s/p PCI - Remote PCI, would hold Plavix until neuro eval; evolving bleed remains on ddx - Resume Lipitor Heart failure, known ejection fraction - Resume home dose metoprolol succinate - Resume home dose Lasix if not on day of operative intervention - Would recommend echocardiogram prior to operative intervention COPD - Resume home equivalent of fluticasone salmeterol HTN - Resuming metoprolol as above, does not appear to be on any dedicated antihypertensives GERD - Okay to resume famotidine; would hold off on PPI given osteoporosis/fragility fx Osteoporosis - Reportedly on alendronate - Would recommend consulting bone mineral density nephrology given fall W/fracture Chronic back pain - Would resume home baclofen at least a half home dose to avoid withdrawal syndrome - Pain control as above Irritable bowel syndrome - Would hold dicyclomine/colestipol - Bowel regimen per primary; should patient develop loose stools, can consider resuming colestipol and adjusting bowel regimen appropriate Urge incontinence - In the setting of concern for polypharmacy, hold oxybutynin T2DM - On metformin at home, unclear diagnosis - Would recommend A1c, SSI Recommendations discussed W/attending physician Dr. Dumont. Will discuss W/primary team. Thank you for allowing us to participate in the care of this patient. Please Secure Chat or page with any questions or concerns. GME will sign off at this time as mental status has resolved and is stable - Oscar Jarvis DO Internal Medicine PGY-2 Pager [phone]; Epic Chat preferred Cosigned by Maik Dumont MD at 04/22/2025 10:26 AM EST Associated attestation - Maik Dumont MD - 04/22/2025 10:26 AM EST I saw and evaluated the patient with the resident/fellow. I discussed the case with the resident/fellow and agree with the findings and plan as documented. Maik Dumont MD Attending Physician Internal Medicine/Pediatrics Secure Chat / Pager [phone] * Care Plan - Estela Galeano RN - 04/21/2025 11:09 AM EST Problem: Adult Inpatient Plan of Care Goal: Plan of Care Review Outcome: Ongoing, Progressing Flowsheets (Taken 04/21/2025 1109) Progress: no change Plan of Care Reviewed With: patient Goal: Patient-Specific Goal (Individualized) Outcome: Ongoing, Progressing Flowsheets (Taken 04/21/2025 0800) Patient/Family-Specific Goals (Include Timeframe): pt will remain free from injury this shift Individualized Care Needs: safety Anxieties, Fears or Concerns: none stated Goal: Absence of Hospital-Acquired Illness or Injury Outcome: Ongoing, Progressing Goal: Optimal Comfort and Wellbeing Outcome: Ongoing, Progressing Problem: Skin Injury Risk Increased Goal: Skin Health and Integrity Outcome: Ongoing, Progressing Problem: Infection Goal: Absence of Infection Signs and Symptoms Outcome: Ongoing, Progressing * Significant Event - Toribio Hernadez MD - 04/21/2025 7:04 AM EST ORTHOPAEDIC SURGERY INTERIM SUMMARY To OR today. NPO since midnight. Marked and consented. Full progress note to follow. Please page ORF with any questions: [phone] Toribio Hernadez Orthopaedic Surgery and Sports Medicine [facility] * Care Plan - Robyn Clark RN - 04/21/2025 6:53 AM EST Problem: Adult Inpatient Plan of Care Goal: Plan of Care Review Outcome: Ongoing, Progressing Flowsheets (Taken 04/21/2025 0653) Progress: no change Plan of Care Reviewed With: patient Goal: Patient-Specific Goal (Individualized) Outcome: Ongoing, Progressing Goal: Absence of Hospital-Acquired Illness or Injury Outcome: Ongoing, Progressing Goal: Optimal Comfort and Wellbeing Outcome: Ongoing, Progressing Problem: Skin Injury Risk Increased Goal: Skin Health and Integrity Outcome: Ongoing, Progressing * Assessment & Plan Note - Rupinder Villar APRN - 04/20/2025 3:54 PM EST Associated Problem(s): Acute encephalopathy Medicine and Neurology consulted, MRI Head pending MED recs: Hold topiramate, Seroquel, Vraylar, Trazodone. Resume home dose Effexor, resume at least half home dose baclofen, limit Atarax to no more than 25mg q8 * Assessment & Plan Note - Rupinder Villar APRN - 04/20/2025 3:54 PM EST Associated Problem(s): FAMILIA (generalized anxiety disorder) Resume home meds as appropriate; Effexor Hold Trazodone * Assessment & Plan Note - Rupinder Villar APRN - 04/20/2025 3:54 PM EST Associated Problem(s): Migraines Hold Topiramate per Medicine * Assessment & Plan Note - Rupinder Villar APRN - 04/20/2025 3:54 PM EST Associated Problem(s): CAD (coronary artery disease) Resume home meds as appropriate; Lipitor Hold Plavix pending Neuro eval. * Assessment & Plan Note - Rupinder Villar APRN - 04/20/2025 3:54 PM EST Associated Problem(s): Heart failure ECHO ordered Resume home meds as appropriate: Metoprolol, Lasix * Assessment & Plan Note - Rupinder Villar APRN - 04/20/2025 3:54 PM EST Associated Problem(s): COPD (chronic obstructive pulmonary disease) Resume home meds as appropriate PEP/PAP Pulmonary toileting * Assessment & Plan Note - Rupinder Villar APRN - 04/20/2025 3:54 PM EST Associated Problem(s): HTN (hypertension) Resume home meds as appropriate * Assessment & Plan Note - Rupinder Villar APRN - 04/20/2025 3:54 PM EST Associated Problem(s): GERD (gastroesophageal reflux disease) Resume home meds as appropriate: Famotidine Hold off on PPI given osteoporosis/fragility fx * Assessment & Plan Note - Rupinder Villar APRN - 04/20/2025 3:54 PM EST Associated Problem(s): Age-related osteoporosis with current pathological fracture Fragility consulted; recs pending Reportedly on Alendronate, restart as able * Assessment & Plan Note - Rupinder Villar APRN - 04/20/2025 3:54 PM EST Associated Problem(s): Chronic back pain Resume home Baclofen Hold home [place] in light of acute fx and additional in-patient narcotics * Assessment & Plan Note - Rupinder Villar APRN - 04/20/2025 3:54 PM EST Associated Problem(s): IBS (irritable bowel syndrome) Hold dicyclomine/colestipol Bowel regimen as appropriate * Assessment & Plan Note - Rupinder Villar APRN - 04/20/2025 3:54 PM EST Associated Problem(s): Urge incontinence In the setting of concern for polypharmacy, hold oxybutynin * Assessment & Plan Note - Rupinder Villar APRN - 04/20/2025 3:54 PM EST Associated Problem(s): T2DM (type 2 diabetes mellitus) Take Metformin at home, unclear diagnosis A1c 5.3, SSI, CC2 in-patient * Assessment & Plan Note - Rupinder Villar APRN - 04/20/2025 3:54 PM EST Associated Problem(s): Closed fracture of left femur L periprosthetic femur fx thru distal diaphysis Ortho following, OR tentative 04/20 * Assessment & Plan Note - Rupinder Villar APRN - 04/20/2025 3:54 PM EST Associated Problem(s): Fall at home, initial encounter Admit to [facility] * Progress Notes - Rupinder Villar APRN - 04/20/2025 3:49 PM EST TRAUMA SURGERY TERTIARY SURVEY 04/20/25 Parul Leone HPI Parul Leone is a 64 y/o F w/ PMHx of HTN, MDD/Anxiety, Osteopenia, Arthritis, chronic pain CAD s/pPCI w/ CHF on Plavix, GERD, HLD, COPD, Migraines, asthma, Vitamin D deficiency, gastric bypass and IBS, admitted from OSH on 04/18 s/p fall on 04/17. Patient tripped in a hole in the yard and suffered a L periprosthetic femur fx. Concern at OSH for stroke d/t AMS, work up negative. ORT, Medicine and Neuro consulted. Interval: Patient sitting up in bed, alert, oriented to self. Continues to have aphasia, unable to cite , current month or year. VSS. NAD. NAEON. On RA, no SOA. NPO for OR w/ ORT, no N/V, abd pain. Last BM VP RESPIRATORY, voiding spontaneously. Mobilizing as able with staff given weight bearing restrictions. Pain well controlled at this time. Neurology assessed patient and do not feel the need for an MRI, have recommended an ECHO w/ bubble study, order placed. AM labs reviewed, K 3.4, replaced. Tertiary exam completed this AM. Discussed plan of care with patient who is in understanding. Will speak with CM tomorrow regarding discharge planning. No further concerns per patient or nursing. Edited by: Rupinder Villar APRN at 04/20/2025 1506 Are there limits on this patient's care or advanced wishes/documents available? No Past Medical History: Active Ambulatory Problems Diagnosis Date Noted No Active Ambulatory Problems Resolved Ambulatory Problems Diagnosis Date Noted No Resolved Ambulatory Problems Past Medical History: Diagnosis Date Body mass index (bmi) 38.0-38.9, adult Cough Personal history of other diseases of the respiratory system Personal history of other specified conditions Past Surgical History: Surgical History[1] Home Medications: Prior to Admission medications Medication Sig Start Date End Date Taking? Authorizing Provider alendronate (Fosamax) 70 MG tablet Take 1 tablet by mouth every 7 days. Take in the morning with a full glass of water, on an empty stomach, and do not take anything else by mouth or lie down for thenext 30 min. Yes Provider, Historical atorvastatin (Lipitor) 80 MG tablet Take 1 tablet by mouth daily. Yes Provider, Historical baclofen (Lioresal) 10 MG tablet Take 1 tablet by mouth 3 times a day. Yes Provider, Historical cariprazine (Vraylar) 1.5 MG capsule Take 1 capsule by mouth daily. Yes Provider, Historical clopidogrel (Plavix) 75 MG tablet Take 1 tablet by mouth daily. Yes Provider, Historical colestipol (Colestid) 1 g tablet Take 1 tablet by mouth daily. Take at least 1 hour after or 4 hours before other medications. Yes Provider, Historical dicyclomine (Bentyl) 20 MG tablet Take 1 tablet by mouth 2 times a day. Yes Provider, Historical famotidine (Pepcid) 40 MG tablet Take 1 tablet by mouth daily. Yes Provider, Historical FLUoxetine (PROzac) 40 MG capsule Take 1 capsule by mouth 2 times a day. Yes Provider, Historical fluticasone (Flonase) 50 MCG/ACT nasal spray Administer 1 spray into each nostril daily. Shake gently. Before first use, prime pump. After use, clean tip and replace cap. Yes Provider, Historical fluticasone-salmeterol (Advair Diskus) 500-50 MCG/ACT diskus inhaler Inhale 1 puff 2 times a day. Rinse mouth with water after use to reduce aftertaste and incidence of candidiasis. Do not swallow. Yes Provider, Historical furosemide (Lasix) 80 MG tablet Take 1 tablet by mouth daily. Yes Provider, Historical galcanezumab-gnlm (Emgality) 120 MG/ML injection Inject 1 Syringe under the skin every 30 days. YesProvider, Historical HYDROcodone-acetaminophen ([place]) 5-325 MG tablet Take 1 tablet by mouth 2 times a day as needed. Yes Provider, Historical hydrOXYzine pamoate (Vistaril) 25 MG capsule Take 1 capsule by mouth 3 times a day. Yes Provider, Historical metFORMIN (Glucophage) 1000 MG tablet Take 1 tablet by mouth 2 times a day with meals. Yes Provider, Historical metoprolol succinate XL (Toprol-XL) 25 MG 24 hr tablet Take 0.5 tablets by mouth daily. Do not crush or chew. Yes Provider, Historical montelukast (Singulair) 10 MG tablet Take 1 tablet by mouth nightly. Yes Provider, Historical omeprazole (PriLOSEC) [address] capsule Take 1 capsule by mouth daily. Do not crush or chew. Yes Provider, Historical oxybutynin XL (Ditropan-XL) 10 MG 24 hr tablet Take 1 tablet by mouth daily. Do not crush, chew, orsplit. Yes Provider, Historical potassium chloride CR (Klor-Con M20) 20 MEQ ER tablet Take 1 tablet by mouth daily. Do not crush orchew. Yes Provider, Historical QUEtiapine (SEROquel) 50 MG tablet Take 1 tablet by mouth nightly. Yes Provider, Historical ranolazine (Ranexa) 500 MG 12 hr tablet Take 1 tablet by mouth 2 times a day. Do not crush, chew, or split. Yes Provider, Historical Rimegepant Sulfate (Nurtec) 75 MG orally disintegrating tablet Dissolve 1 tablet on the tongue as needed. Yes Provider, Historical rOPINIRole (Requip) 2 MG tablet Take 1 tablet by mouth nightly. Yes Provider, Historical semaglutide (Ozempic, 2 MG/DOSE,) 8 MG/3ML solution pen-injector Inject 2 mg under the skin every 7days. Yes Provider, Historical topiramate 50 MG tablet Take 1 tablet by mouth nightly. Yes Provider, Historical traZODone (Desyrel) 150 MG tablet Take 1 tablet by mouth nightly. Yes Provider, Historical venlafaxine XR (Effexor-XR) 37.5 MG 24 hr capsule Take 2 capsules by mouth daily. Do not crush or chew. Yes Provider, Historical rOPINIRole (Requip) 1 MG tablet Take 1 tablet by mouth nightly. 04/20/25 Yes Provider, Historical semaglutide 1 MG/DOSE (Ozempic, 1 MG/DOSE,) 2 MG/1.5ML solution pen-injector inj. pen Inject 2 mg under the skin 1 time per week. 04/20/25 Provider, Historical Social History: Pt has reports that she has never smoked. She does not have any smokeless tobacco history on file. She reports that she does not drink alcohol. No history on file for drug use. (details as available below) Social History Substance and Sexual Activity Alcohol Use Never Social History Substance and Sexual Activity Drug Use Not on file Tobacco Use History[2] Audit-C for Alcohol Misuse Screening Lab Results Component Value Date ETOH <10 04/19/2025 Q1: How often did you have a drink containing alcohol in the past year? Never = 0 Q2: How many drinks did you have on a typical day when you were drinking in the past year? None = 0 Q3: How often did you have six or more drinks on one occasion in the past year? Never = 0 The AUDIT-C is scored on a scale of 0-12 (scores of 0 reflect no alcohol use). In men, a score of 4or more is considered positive; in women, a score of 3 or more is considered positive. Generally, the higher the AUDIT-C score, the more likely it is that the patient's drinking is affecting his/her health and safety. If screening positive (men = 4 women = 3), proceed with referral for alcohol misuse. TOTAL SCORE: 0 Brief Intervention Performed: Not indicated Referral to Treatment Made: Not indicated Injured Trauma Survivor Screen (ITSS) for Depression / PTSD Risk Before this injury: Have you ever taken a medication for, or been given a mental health diagnosis? No = +0 Has there ever been a time in your life you have been bothered by feeling down or hopeless or lost all interest in things you usually enjoyed for more than 2 weeks? No = +0 When you were injured or right after: Did you think you were going to ? No = +0 Do you think this was done to you intentionally? No = +0 Since your injury: Have you felt emotionally detached from your loved ones? No = +0 Do you find yourself crying and are unsure why? No = +0 Have you felt more restless, tense or jumpy than usual? No = +0 Have you found yourself unable to stop worrying? No = +0 Do you find yourself thinking that the world is unsafe and that people are not to be trusted? No = +0 Total Score: 0 0-1 = teaching 2-5 = Consult to Trauma Mental Health Professional or Theatrical Variety Agent 6-9 = Psychiatry Consult Relevant review of systems was obtained as able and is negative unless stated above in HPI. Vital signs: Vitals: 04/20/25 1249 BP: 102/69 Pulse: 96 Resp: Temp: 37 ??C (98.6 ??F) SpO2: 94% Tertiary exam as documented below: Physical Exam Constitutional: General: She is not in acute distress. Appearance: Normal appearance. She is normal weight. She is not ill-appearing. HENT: Head: Normocephalic and atraumatic. Right Ear: External ear normal. Left Ear: External ear normal. Nose: Nose normal. Mouth/Throat: Mouth: Mucous membranes are moist. Pharynx: Oropharynx is clear. Eyes: Extraocular Movements: Extraocular movements intact. Conjunctiva/sclera: Conjunctivae normal. Pupils: Pupils are equal, round, and reactive to light. Neck: Comments: No cervical spinal tenderness on palpation, no step-offs noted. Cardiovascular: Rate and Rhythm: Normal rate and regular rhythm. Heart sounds: No murmur heard. Pulmonary: Effort: Pulmonary effort is normal. No respiratory distress. Breath sounds: Normal breath sounds. No stridor. Abdominal: General: Abdomen is flat. Bowel sounds are normal. Palpations: Abdomen is soft. Musculoskeletal: General: Swelling (LLE) and tenderness (LLE) present. Normal range of motion. Comments: No tenderness to palpation on bony prominences. No pelvic instability found. No spinal tenderness on palpation, no step-offs noted. TROM in place LLE Skin: General: Skin is warm and dry. Capillary Refill: Capillary refill takes less than 2 seconds. Neurological: General: No focal deficit present. Mental Status: Mental status is at baseline. She is disoriented and confused. GCS: GCS eye subscore is 4. GCS verbal subscore is 4. GCS motor subscore is 6. Sensory: Sensation is intact. Motor: No weakness. Psychiatric: Mood and Affect: Mood normal. Judgment: Judgment normal. Intake/Output Summary (Last 24 hours) at 04/20/2025 1554 Last data filed at 04/19/2025 1752 Gross per 24 hour Intake 250 ml Output -- Net 250 ml Lines/Drains/Tubes: Patient Lines/Drains/Airways Status Active Airway None Output by Drain (mL) 04/18/25 07 - 04/18/25 18504/18/25 1900 - 04/19/25 0659 04/19/25 07 - 04/19/25 1859 04/19/25 1900 - 04/20/25 0659 04/20/25 07 - 04/20/25 1554 Patient has no LDAs of requested type attached. Labs in last 18 hours: CBC WBC 10.28 Hb 11.9 Plt 232 Hct 33.8 (L) ANC ?? INR 1.0, PTT ??, Anti-Xa ?? MCV 90 BMP Na 140 Cl 107 BUN 12 Glu 105 (H) K 3.4 (L) Co2 25 Cr 0.55 (L) Ca 8.4 (L) iCa ?? Mg ??, Phos ?? Lactate ?? LFT AST ?? AlkPhos ?? T Prot ?? ALK ?? Bili ?? Alb ?? D.Bili ?? Lab Trends: H/H Results from last 7 days Lab Units 04/20/25 0148 04/19/25 0051 HEMOGLOBIN g/dL 11.9 13.0 HEMATOCRIT % 33.8* 38.4 INR Results from last 7 days Lab Units 04/20/25 0148 04/19/25 0141 INR 1.0 1.0 Cr Results from last 7 days Lab Units 04/20/25 0148 04/19/25 1438 04/19/25 0051 CREATININE mg/dL 0.55* 0.66 0.71 Radiology:All labs and imaging reviewed this AM. No additional imaging required at this time. No additional diagnosis found, no additional consults required. I performed a complete tertiary exam, reviewed patient history, lab studies and all available imaging. All traumatic or incidental findings have been documented. Assessment and Plan: Assessment & Plan Closed fracture of left femur Present on Admission: Yes L periprosthetic femur fx thru distal diaphysis Ortho following, OR tentative 04/20 Fall at home, initial encounter Present on Admission: Not Applicable Admit to [facility] Acute encephalopathy Present on Admission: Yes Medicine and Neurology consulted, MRI Head pending MED recs: Hold topiramate, Seroquel, Vraylar, Trazodone. Resume home dose Effexor, resume at least half home dose baclofen, limit Atarax to no more than 25mg q8 FAMILIA (generalized anxiety disorder) Present on Admission: Yes Resume home meds as appropriate; Effexor Hold Trazodone Migraines Present on Admission: Yes Hold Topiramate per Medicine CAD (coronary artery disease) Present on Admission: Yes Resume home meds as appropriate; Lipitor Hold Plavix pending Neuro eval. Heart failure Present on Admission: Yes ECHO ordered Resume home meds as appropriate: Metoprolol, Lasix COPD (chronic obstructive pulmonary disease) Present on Admission: Yes Resume home meds as appropriate PEP/PAP Pulmonary toileting HTN (hypertension) Present on Admission: Yes Resume home meds as appropriate GERD (gastroesophageal reflux disease) Present on Admission: Yes Resume home meds as appropriate: Famotidine Hold off on PPI given osteoporosis/fragility fx Age-related osteoporosis with current pathological fracture Present on Admission: Yes Fragility consulted; recs pending Reportedly on Alendronate, restart as able Chronic back pain Present on Admission: Yes Resume home Baclofen Hold home [place] in light of acute fx and additional in-patient narcotics IBS (irritable bowel syndrome) Present on Admission: Yes Hold dicyclomine/colestipol Bowel regimen as appropriate Urge incontinence Present on Admission: Yes In the setting of concern for polypharmacy, hold oxybutynin T2DM (type 2 diabetes mellitus) Present on Admission: Yes Take Metformin at home, unclear diagnosis A1c 5.3, SSI, CC2 in-patient Altered mental status Present on Admission: Yes 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, initial encounter Present on Admission: Not Applicable Hyperkalemia Present on Admission: No Plan: - Tertiary complete 04/20 - ORT: OR tentative for 04/20 L femur, NWB LLE in TROM brace locked in extension - Medicine consult- acute onset of encephalopathy, appreciate recs - ECHO w/ bubble study ordered - Neurology consulted recs appreciated - Fragility consulted - Bowel regimen - DVT ppx - PT/OT Dispo: pending Edited by: Rupinder Villar APRN at 04/20/2025 1554 Rupinder Villar APRN New diagnoses, need for imaging or specialty consultation identified as present on admission via tertiary survey: All labs and imaging reviewed this AM. No additional imaging required at this time. No additional diagnosis found, no additional consults required. [1] Past Surgical History: Procedure Laterality Date CATH STENT PLACEMENT/ CATH PLACEMENT OF STENT N/A Cath Stent Placement from [facility] CHOLECYSTECTOMY N/A Cholecystectomy from [facility] GASTRIC BYPASS N/A Gastric Surgery from [facility] HYSTERECTOMY N/A Hysterectomy from [facility] TUBAL LIGATION N/A Tubal Ligation from [facility] [2] Social History Tobacco Use Smoking Status Never Smokeless Tobacco Not on file * Progress Notes - Brad Mendosa MBBS - 04/20/2025 3:34 PM EST Stroke Consults Progress Note Subjective No acute events overnight. Patient was seen and examined at bedside this morning. No new complaintsreported. Patient exhibits mild word-finding difficulty, which can prove when she is given sufficient time. Findings are not consistent with an expressive aphasia. No other focal neurological deficits identified. Objective Visit Vitals BP 102/69 Pulse 96 Temp 37 ??C (98.6 ??F) SpO2 94% Physical exam GEN: ; in bed; in NAD HENT: normocephalic, non-erythematous oropharynx CV: RRR, No JVD, no LE edema PULM: airways patent, non-labored breathing ABD soft, NT, ND EXT: no clubbing, cyanosis, or erythema SKIN: no rashes or lesions NEURO: Mental Status: A&O x 3, interactive, able to follow commands Speech: Intact Articulation CN 2-12: II - PERRLA, VFs full to confrontation III, IV, - EOMI V - Facial sensation intact VII - Brow raise and smile symmetrical VIII - Auditory acuity intact IX, X - Palate elevation symmetric, uvula midline XI - SCM and Trapezius strength intact XII - Tongue protrudes midline Motor: LUE: 5/5 RUE:5/5 LLE: 5/5 RLE: 5/5 Sensory: intact light touch throughout Coordination: no ataxia with [id number] testing Gait/Station: Deferred Cortical: No Extinction Labs Labs in last 18 hours CBC WBC 10.28 Hb 11.9 Plt 232 Hct 33.8 (L) ANC ?? INR 1.0, PTT ??, Anti-Xa ?? BMP Na 140 Cl 107 BUN 12 Glu 105 (H) K 3.4 (L) Co2 25 Cr 0.55 (L) Ca 8.4 (L) iCa ?? Mg ??, Phos ?? Lactate ?? LFT AST ?? AlkPhos ?? T Prot ?? ALK ?? Bili ?? Alb ?? D.Bili ?? Imaging Imaging personally reviewed and interpreted. Assessment/Plan Parul Leone is a 64 y.o. female with medical history of HTN, MDD/anxiety/mood disorders, chronic pain (on chronic opiates and baclofen), CAD s/p PCI W/CHF (unknown EF), GERD, migraines, hyperlipidemia, IBS, T2-DM presents with AMS following L femur fracture. Neurology consulted for acute encephalopathy. #Acute encephalopathy # Word-finding difficulty - Risk factors: diabetes mellitus, hyperlipidemia, and hypertension - CTH 04/18 and 04/19 showed no acute intracranial abnormality - CTA H/N showed no LVO or significant stenosis - Home use of antiplatelets/AC/statins: is using medication: Clopidogrel with last dose 04/15 or 04/17, atorvastatin 80 mg Plan - BP goals: normotension - Na goals: normonatremia - Continue atorvastatin and clopidogrel - No focal neurological deficits identified on exam. Low concern for stroke at this point. No further testing recommended Chronic medical conditions: HTN, HLD, CAD, T2DM, mood disorder Staffed with Stroke Attending - Dr. Segura. Thank you for the opportunity to participate in the care of this patient. Please page the neurology service pager in case of any questions down the line. ROBINA Longoria Neurology Resident PGY-2 EPIC Chat preferred Cosigned by Tanesha Segura MD at 04/20/2025 5:00 PM EST Associated attestation - Tanesha Segura MD - 04/20/2025 5:00 PM EST I saw and evaluated the patient with the resident/fellow. I discussed the case with the resident/fellow and agree with the findings and plan as documented. * Care Plan - Devika Billy RN - 04/20/2025 2:01 PM EST Problem: Adult Inpatient Plan of Care Goal: Plan of Care Review 04/20/20251400 by Devika Billy RN Outcome: Ongoing, Progressing 04/20/20251400 by Devkia Billy RN Outcome: Ongoing, Progressing Flowsheets (Taken 04/20/20251400) Progress: improving Plan of Care Reviewed With: patient Goal: Patient-Specific Goal (Individualized) 04/20/20251400 by Devika Billy RN Outcome: Ongoing, Progressing 04/20/20251400 by Devika Billy RN Outcome: Ongoing, Progressing Goal: Absence of Hospital-Acquired Illness or Injury 04/20/20251400 by Devika Billy RN Outcome: Ongoing, Progressing 04/20/20251400 by Devika Billy RN Outcome: Ongoing, Progressing Goal: Optimal Comfort and Wellbeing 04/20/20251400 by Devika Billy RN Outcome: Ongoing, Progressing 04/20/20251400 by Devika Billy RN Outcome: Ongoing, Progressing Problem: Skin Injury Risk Increased Goal: Skin Health and Integrity 04/20/20251400 by Devika Billy RN Outcome: Ongoing, Progressing 04/20/20251400 by Devika Billy RN Outcome: Ongoing, Progressing * Care Plan - Robyn Clark RN - 04/20/2025 6:05 AM EST Problem: Adult Inpatient Plan of Care Goal: Plan of Care Review Outcome: Ongoing, Progressing Flowsheets (Taken 04/20/2025 0605) Progress: no change Plan of Care Reviewed With: patient Goal: Patient-Specific Goal (Individualized) Outcome: Ongoing, Progressing Goal: Absence of Hospital-Acquired Illness or Injury Outcome: Ongoing, Progressing Goal: Optimal Comfort and Wellbeing Outcome: Ongoing, Progressing Problem: Skin Injury Risk Increased Goal: Skin Health and Integrity Outcome: Ongoing, Progressing * Progress Notes - Sean Hay MD - 04/20/2025 4:05 AM EST ORTHOPAEDIC SURGERY PROGRESS NOTE SUBJECTIVE No acute events overnight reported by patient. Doing well. Pain controlled. No nausea, vomiting, fevers or chills. Plan for OR discussed with patient. To OR 04/20/25 for operative fixation of her D-xksf-gmkcilmomk distal femur fracture. NPO since midnight. Extremity marked, informed consent obtainedfor surgery. OBJECTIVE Visit Vitals BP 105/70 (BP Location: Left arm) Pulse 82 Temp 36.8 ??C (98.2 ??F) (Oral) Ht 1.6 m (5' 2.99 ) Wt 58.6 kg (129 lb 3 oz) SpO2 97% BMI 22.89 kg/m?? Labs in last 18 hours CBC WBC 10.28 Hb 11.9 Plt 232 Hct 33.8 (L) ANC ?? INR 1.0, PTT ??, Anti-Xa ?? BMP Na 140 Cl 107 BUN 12 Glu 105 (H) K 3.4 (L) Co2 25 Cr 0.55 (L) Ca 8.4 (L) iCa ?? Mg 2.0, Phos 3.3 Lactate ?? LFT AST 23 AlkPhos 108 T Prot 6.0 (L) ALK 25 Bili 0.4 Alb ?? D.Bili ?? PHYSICAL EXAMINATION No acute distress Non labored breathing Peripheral perfusion intact FOCUSED MUSCULOSKELETAL EXAM Left lower extremity Inspection: Knee immobilizer in place, clean dry and intact, knee with local swelling Motor: Motor intact TA, GSC, FHL, EHL Sensory exam: SILT in Sural, Saphenous, Deep peroneal, Superficial peroneal, Tibial nerve distributions Vascular: Palpable DP and PT pulse, toes WWP with CR <2 sec ASSESSMENT AND PLAN Parul Leone is a 64 y.o. female patient with L periprosthetic DF fx Edited by: Graciela Lawton MD at 04/19/2025 0419 Mobility Orders Mobility Protocol: General - Mobility Guidelines Extremity Precautions: Extremity Precautions Extremity: LLE Mobility Restrictions (LLE): Non-weight bear (NWB) Type of Brace (LLE): TROM Brace TROM Brace Wear Time Protocol: Remove for skin inspection and hygiene Other mobility precautions: No other precautions required To OR today for operative fixation of left periprosthetic distal femur fracture NPO DVT prophylaxis Pain control per primary Bowel regimen PT/OT Follow up: Pending clinical course Disposition: Admitted to T -- Sean Hay MD Orthopedic Surgery PGY-1 [facility] Personal Pager: [phone] Orthopaedic Trauma Service Pager: [phone] Orthopaedic Recon/Spine/Foot and Ankle Service Pager: [phone] Cosigned by Ulices Gale MD at 04/20/2025 7:39 AM EST * Nursing Note - Jazmin Joshi RN - 04/19/2025 6:40 PM EST Pt. to 7-218 from ED. Patient lying in bed. A/O x1 (to person only). VSS, no complaints from patient at this time. * Consults - Dinorah Cote MD - 04/19/2025 5:29 PM ESTAssociated Order(s): Inpatient consult to neurology Inpatient consult to neurology Consult performed by: Dinorah Cote MD Consult ordered by: Rupinder Villar APRN Stroke Consult Subjective History Of Present Illness Parul Leone is a 64 y.o. female with medical history of HTN, MDD/anxiety/mood disorders, chronic pain (on chronic opiates and baclofen), CAD s/p PCI W/CHF (unknown EF), GERD, migraines, hyperlipidemia, IBS, T2-DM presents with AMS following L femur fracture transferred from outside hospital and seen as a stroke consult. Last known normal: 04/17. The patient presented with initial deficits expressive aphasia and disorientation giving a baseline NIHSS of 5 (unable to use L leg due to femur fracture). BP was 132/80 and BG 104 (H). History was obtained from patient and chart review. Per chart review, patient reportedly is fluent at baseline, however developed aphasia after fall. Regarding the fall, she did not lose consciousness, did not experience any atypical movements at thistime, did not experience incontinence, and did not bite her tongue. She underwent CT head x2, negative for acute findings and was admitted to Trauma due to femur fracture. Neurology consulted regarding aphasia. Patient evaluated today with no family at bedside. She is oriented to self and situation, is unableto answer questions about place and time. She is able to answer simple questions with yes or no answers but is unable to provide history. Patient was able to tell me that she is here because of the fall. Home use of antiplatelets/AC: is using medication: Clopidogrel with last dose 04/17 Tpa was not administered due to patient presented outside of window Images were discussed with Neurointerventionalist director hr communications via the [employer]. Thrombectomy was not performed due to no large vessel occlusion. ROS All 14 points systems have been reviewed and negative except stated in HPI Past Medical and Surgical History Past Medical History[1] Surgical History[2] Family History Family History[3] Social History: reports that she has never smoked. She does not have any smokeless tobacco history on file. She reports that she does not drink alcohol. Allergies: Milk (cow) Home Medications No current outpatient medications Objective Vitals reviewed and are normal, afebrile and hemodynamically stable Visit Vitals BP 122/78 (BP Location: Left arm, Patient Position: Sitting) Pulse 88 Temp 37.1 ??C (98.8 ??F) (Oral) SpO2 96% Physical exam Constitutional: in no acute distress HENT: normocephalic, non-erythematous oropharynx, anicteric sclera Cardiovascular: no appreciable murmurs, gallops, or rubs Respiratory: symmetric chest expansion, non-labored breathing Gastrointestinal: abdomen is soft, not distended, non-tender Musculoskeletal: no appreciable joint swelling, no appreciable LE warmth or erythema Psychiatric: appropriate mood and affect, cooperative Neurological: Mental Status: The patient is alert and interactive, able to follow commands. Oriented to person, Speech: Expressive aphasia CN: II - PERRL, Visual garcia: full III, IV, - EOMI V - Facial sensation intact VII - Brow raise and smile symmetrical VIII - Auditory acuity intact IX, X - Palate elevation symmetric, uvula midline XI - SCM and Trapezius strength intact XII - Tongue protrudes midline Motor: Normal bulk and tone RUE: 5/5 strength LUE: 5/5 strength RLE: 5/5 strength LLE: 0/5 strength (due to pain given a fracture) Reflexes 1+ and symmetric throughout. No ankle clonus. Plantar reflex down-going Sensation to light touch in all four extremities is preserved and symmetric No limb ataxia with [id number] or [id number]-[id number] Gait: Deferred Labs Labs in last 18 hours CBC WBC 11.36 (H) Hb 13.0 Plt 256 Hct 38.4 ANC 9.27 (H) INR 1.0, PTT ??, Anti-Xa ?? BMP Na 141 Cl 105 BUN 10 Glu 104 (H) K 3.5 (L) Co2 27 Cr 0.66 Ca 9.0 iCa 4.4 (L) Mg 2.0, Phos 3.3 Lactate ?? LFT AST 23 AlkPhos 108 T Prot 6.0 (L) ALK 25 Bili 0.4 Alb ?? D.Bili ?? Imaging: CT Femur Left wo IV Contrast Result Date: 04/19/2025 Impression: Redemonstrated comminuted and mildly displaced periprosthetic fracture involving the distal left femur, better evaluated on the CT knee performed earlier same day given streak artifact onthe current exam. Intact proximal femur. CRITICAL RESULT: No. COMMUNICATION: Per this written report. Preliminary report signed by Olimpia Izaguirre MD on 04/19/2025 4:05 AM By electronically signing this report, I, the attending physician, attest that I have personally reviewed the images/data for the above examination(s) and agree with the final edited report. Drafted by Olimpia Izaguirre MD on 04/19/2025 3:53 AM Final report signed by Dennis Ibrahim MD on 04/19/2025 4:[address] Knee Left wo IV Contrast Result Date: 04/19/2025 Impression: Comminuted mildly displaced periprosthetic fracture CRITICAL RESULT: No. COMMUNICATION:Per this written report. By electronically signing this report, I, the attending physician, attest that I have personally reviewed the images/data for the above examination(s) and agree with the final edited report. Drafted by Kathryn Carr MD on 04/19/2025 2:17 AM Final report signed by Dennis Ibrahim MD on 04/19/2025 3:[address] Head wo IV Contrast Result Date: 04/19/2025 Impression: No acute intracranial abnormality. CRITICAL RESULT: No. COMMUNICATION: Per this writtenreport. Preliminary report signed by Olimpia Izaguirre MD on 04/19/2025 2:03 AM By electronically signing this report, I, the attending physician, attest that I have personally reviewed the images/datafor the above examination(s) and agree with the final edited report. Drafted by Olimpia Izaguirre MDon 04/19/2025 1:59 AM Final report signed by Dennis Ibrahim MD on 04/19/2025 2:37 AM XR Hip Left 2 or 3 Views Including Pelvis Result Date: 04/19/2025 Impression: Mildly displaced periprosthetic fracture through the distal diaphysis of the femur withoverlying soft tissue swelling and small suprapatellar effusion. CRITICAL RESULT: No. COMMUNICATION: Per this written report. Drafted by Gabriela Nelson MD on 04/19/2025 12:35 AM Final report signed by Gabriela Nelson MD on 04/19/2025 12:40 AM XR Femur Left 2+ Views Result Date: 04/19/2025 Impression: Mildly displaced periprosthetic fracture through the distal diaphysis of the femur withoverlying soft tissue swelling and small suprapatellar effusion. CRITICAL RESULT: No. COMMUNICATION: Per this written report. Drafted by Gabriela Nelson MD on 04/19/2025 12:35 AM Final report signed by Gabriela Nelson MD on 04/19/2025 12:40 AM XR Tibia Fibula Left 2+ Views Result Date: 04/19/2025 Impression: Mildly displaced periprosthetic fracture through the distal diaphysis of the femur withoverlying soft tissue swelling and small suprapatellar effusion. CRITICAL RESULT: No. COMMUNICATION: Per this written report. Drafted by Gabriela Nelson MD on 04/19/2025 12:35 AM Final report signed by Gabriela Nelson MD on 04/19/2025 12:40 AM XR Knee Left 3 Views Result Date: 04/19/2025 Impression: Mildly displaced periprosthetic fracture through the distal diaphysis of the femur withoverlying soft tissue swelling and small suprapatellar effusion. CRITICAL RESULT: No. COMMUNICATION: Per this written report. Drafted by Gabriela Nelson MD on 04/19/2025 12:35 AM Final report signed by Gabriela Nelson MD on 04/19/2025 12:40 AM Assessment/Plan Parul Leone is a 64 y.o. female with medical history of HTN, MDD/anxiety/mood disorders, chronic pain (on chronic opiates and baclofen), CAD s/p PCI W/CHF (unknown EF), GERD, migraines, hyperlipidemia, IBS, T2-DM presents with AMS following L femur fracture. Neurology consulted for new aphasia andacute encephalopathy. #Acute encephalopathy #Expressive aphasia Parul Leone is a 64 y.o. female with medical history of HTN, MDD/anxiety/mood disorders, chronic pain (on chronic opiates and baclofen), CAD s/p PCI W/CHF (unknown EF), GERD, migraines, hyperlipidemia, IBS, T2-DM presents with AMS following L femur fracture. Neurology consulted for new aphasia andacute encephalopathy. LKN: 04/17. Admit NIHSS: 5. Diagnosis - concern for acute ischemic stroke, no TNK/EVT. Mechanism - under investigation # Concern for acute ischemic stroke Complicated by # Aphasia - Risk factors: diabetes mellitus, hyperlipidemia, and hypertension - CTH 04/18 and 04/19 showed no acute intracranial abnormality - CTA H/N showed no LVO or significant stenosis - Home use of antiplatelets/AC/statins: is using medication: Clopidogrel with last dose 04/15 or 04/17, atorvastatin 80 mg - TNK was tPA: not administered due to patient presented outside of window - Thrombectomy not performed due to no LVO - Bedside dysphagia screen deferred Plan - BP goals: normotension - Na goals: normonatremia - Stroke Labs: TSH, LDL, A1c pending - UA, UDS pending - [facility] - Echo with bubble study - Secondary stroke prophylaxis: restart plavix, atorvastatin - PT/OT/VICTIM ADVOCATE Chronic medical conditions: HTN, HLD, CAD, T2DM, mood disorder Staffed with Stroke Attending - Dr. Segura. Thank you for the opportunity to participate in the care of this patient. Please page the neurology service pager with quesitons. Dinorah Cote MD PGY-2 Psychiatry NIH Stroke Scale Interval: Baseline Time: 5:29 PM Person Administering Scale: Dinorah Cote MD Administer stroke scale items in the order listed. Record performance in each category after each subscale exam. Do not go back and change scores. Follow directions provided for each exam technique. Scores should reflect what the patient does, not what the clinician thinks the patient can do. The clinician should record answers while administering the exam and work quickly. Except where indicated, the patient should not be coached (i.e., repeated requests to patient to make a special effort). 1a Level of consciousness: 0=alert; keenly responsive 1b. LOC questions: 2=Performs neither task correctly 1c. LOC commands: 0=Performs both tasks correctly 2. Best Gaze: 0=normal 3. Visual: 0=No visual loss 4. Facial Palsy: 0=Normal symmetric movement 5a. Motor left arm: 0=No drift, limb holds 90 (or 45) degrees for full 10 seconds 5b. Motor right arm: 0=No drift, limb holds 90 (or 45) degrees for full 10 seconds 6a. Motor left le=Some effort against gravity, limb cannot get to or maintain (if cured) 90 (or45) degrees, drifts down to bed, but has some effort against gravity (limited due to femur fracture) 6b Motor right le=No drift, limb holds 90 (or 45) degrees for full 10 seconds 7. Limb Ataxia: 0=Absent 8. Sensory: 0=Normal; no sensory loss 9. Best Language: 1=Mild to moderate aphasia; some obvious loss of fluency or facility of comprehension without significant limitation on ideas expressed or form of expression. 10. Dysarthria: 0=Normal 11. Extinction and Inattention: 0=No abnormality TOTAL - 5 (2 for can not use LLE due to fracture) [1] Past Medical History: Diagnosis Date Body mass index (bmi) 38.0-38.9, adult BMI 38.0-38.9,adult Cough Cough Personal history of other diseases of the respiratory system History of bronchitis Personal history of other specified conditions History of nausea [2] Past Surgical History: Procedure Laterality Date CATH STENT PLACEMENT/ CATH PLACEMENT OF STENT N/A Cath Stent Placement from [facility] CHOLECYSTECTOMY N/A Cholecystectomy from [facility] GASTRIC BYPASS N/A Gastric Surgery from [facility] HYSTERECTOMY N/A Hysterectomy from [facility] TUBAL LIGATION N/A Tubal Ligation from [facility] [3] Family History Problem Relation Name Age of Onset Bone cancer Other Bone cancer Other Alcohol abuse Other Conversions - Other Father FH: cataracts Conversions - Other Maternal Grandmother FH: cataracts Conversions - Other Other cardiovascular disease Conversions - Other Other cardiovascular disease Diabetes Other Emphysema Other Hyperlipidemia Other Hypertension Other Conversions - Other Other FH: cataracts Conversions - Other Other FH: cataracts Conversions - Other Other Lymph node cancer Cosigned by Tanesha Segura MD at 04/20/2025 5:00 PM EST Associated attestation - Tanesha Segura MD - 04/20/2025 5:00 PM EST I saw and evaluated the patient with the resident/fellow. I discussed the case with the resident/fellow and agree with the findings and plan as documented. * Consults - Olimpia Wan PA - 04/19/2025 2:05 PM ESTAssociated Order(s): Inpatient consult to Anesthesia Images from the original note were not included. Inpatient consult to Anesthesia Consult performed by: Olimpia Wan PA Consult ordered by: Rupinder Villar APRN Reason for consult: Pre anesthesia evaluation and optimization Reason For Consult Pre anesthesia evaluation and optimization Requesting Service: Ortho Requested Date/Time: 04/19/25 History Of Present Illness Parul Leone is a 64 y.o. female presenting with mechanical fall into a hole, sustaining periprosthetic fx of the LLE. Orthopedic surgery planning operative intervention 04/20/25 and anesthesia was consulted for pre anesthesia evaluation and optimization. Pt with confusions/ asphasia, history limited. PMH of HTN, migraines, osteopenia, arthritis, CAD s/p stent (on Plavix), Heart failure pEF, HLD, asthma/ COPD, urge incontinence, chronic back pain, vitD deficiency, s/p gastric bypass, depression, RLS, sleep disordered breathing, and IBS. Patient hada mechanical fall on 04/17/2025, walking to her home. She fell into a hole in the yard. She was unable to bear weight on her left leg, since her fall. She was carried into the house. Her mentation was at baseline at that time. The following day, Sister reports she was acting funny and would fall asleep prompting her to call EMS. Patient presented to OSH as a stroke alert on 04/18/2025. Patient with acute AMS with a negative stroke workup. She was found to have a femur fracture and was transferred to as a trauma for further evaluation. Pt follows with Dr. Gonzales Oncology Patient Navigator at [facility], last seen 10/2024 and had echo 06/2024 (will upload to media). She was seen 11/10/24 for cardiac clearance for colonoscopy. Hx of CAD s/p NATALIA to LAD , hx diastolic dysfunction, hx LHC 07/28/24 with Widely patent proximal LAD stent, normal EF, elevated LVEDP. At the time of eval pt demonstrated functional capacity >4 METs and was stable from a cardiovascular standpoint. Patient is considered acceptable operative risk, this risk is non modifiable at this time and is unlikely to be further mitigated by additional per-operative cardiac workup. Pt may undergo surgery without additional cardiac testing Per Dr Gonzales. No prior issues with GA reported. Medical/Surgical/Social/Family History Past Medical History[1] Surgical History[2] Social History[3] Family History[4] Allergies Milk (cow) Medications Current Medications[5] Review of Systems Review of Systems Unable to perform ROS: Mental status change Physical Exam Physical Exam Constitutional: General: She is not in acute distress. HENT: Nose: Nose normal. Mouth/Throat: Mouth: Mucous membranes are moist. Eyes: Pupils: Pupils are equal, round, and reactive to light. Cardiovascular: Rate and Rhythm: Normal rate and regular rhythm. Pulmonary: Effort: Pulmonary effort is normal. Breath sounds: Normal breath sounds. Abdominal: Palpations: Abdomen is soft. Musculoskeletal: General: Deformity present. Cervical back: Normal range of motion. Skin: General: Skin is warm and dry. Neurological: Mental Status: She is alert. She is disoriented. Comments: Expressive aphasia Psychiatric: Comments: confused Last Recorded Vitals Blood pressure 128/76, pulse 90, temperature 36.9 ??C (98.5 ??F), temperature source Oral, resp. rate 18, height 1.6 m (5' 2.99 ), weight 58.6 kg (129 lb 3 oz), SpO2 97%. Results Review I have reviewed the latest lab and imaging results with the following pertinent results: Labs in last 18 hours CBC WBC 11.36 (H) Hb 13.0 Plt 256 Hct 38.4 ANC 9.27 (H) INR 1.0, PTT ??, Anti-Xa ?? BMP Na 137 Cl 103 BUN 10 Glu 130 (H) K 4.7 Co2 24 Cr 0.71 Ca 9.1 iCa 4.4 (L) Mg ??, Phos ?? Lactate ?? LFT AST 46 (H) AlkPhos 110 T Prot 6.4 ALK 30 Bili 0.6 Alb ?? D.Bili ?? Encounter Date: 04/18/25 EKG now - STAT (adult) Result Value EKG DIAGNOSIS CLASS Normal Ventricular Rate 87 Atrial Rate 87 MI Interval 140 QRSD Interval 94 QT Interval 388 QTC Interval 466 P [place] 70 R [place] 47 T Wave [place] 69 Diagnosis Normal sinus rhythm Diagnosis Normal ECG Diagnosis Diagnosis Confirmed by Dennis Castaneda ([id number]) on 04/19/2025 9:10:21 AM *Note: Due to a large number of results and/or encounters for the requested time period, some results have not been displayed. A complete set of results can be found in Results Review. No echocardiogram results found for the past 12 months ECHO 06/2024 OSH (in media) Normal systolic function, LVEF 55%, normal diastolic function Mild RV dilation. Mild biatrial dilation. No significant valve disease. [facility] 07/28/24: (in media) Widely patent proximal LAD stent, normal EF, elevated LVEDP Plan: Risk factor modification and medical management Patient's angina pectoris may be coming from the elevated LVEDP 04/19/[address] Femur Left wo IV Contrast (Final result) View Image Impression Redemonstrated comminuted and mildly displaced periprosthetic fracture involving the distal left femur, better evaluated on the CT knee performed earlier same day given streak artifact on the currentexam. Intact proximal femur. 04/19/[address] Head wo IV Contrast (Final result) View Image Impression No acute intracranial abnormality. METS: >4 VP RESPIRATORY reported RCRI: Low risk of MACE Ariscat: Moderate risk of in hospital post operative pulmonary complications Assessment & Plan Fall at home, initial encounter Closed fracture of left femur Recommend obtaining ECHO Recommend Neuro consult given confusion/ expressive aphasia Defer anticoagulation management to primary/ surgery Recommend instructing patient on incentive spirometry use Recommend correcting and maintaining electrolytes within normal limits. Ensure current type and screen on day of surgery Further recommendations pending above Discussed with Dr. Polanco. Thank you for the consult, please call with any questions or concerns. Anesthesia will re-evaluate patient on day of procedure. Olimpia Wan PA-C Department of Anesthesia [phone] [1] Past Medical History: Diagnosis Date Body mass index (bmi) 38.0-38.9, adult BMI 38.0-38.9,adult Cough Cough Personal history of other diseases of the respiratory system History of bronchitis Personal history of other specified conditions History of nausea [2] Past Surgical History: Procedure Laterality Date CATH STENT PLACEMENT/ CATH PLACEMENT OF STENT N/A Cath Stent Placement from [facility] CHOLECYSTECTOMY N/A Cholecystectomy from [facility] GASTRIC BYPASS N/A Gastric Surgery from [facility] HYSTERECTOMY N/A Hysterectomy from [facility] TUBAL LIGATION N/A Tubal Ligation from [facility] [3] Social History Tobacco Use Smoking status: Never Substance Use Topics Alcohol use: Never [4] Family History Problem Relation Name Age of Onset Bone cancer Other Bone cancer Other Alcohol abuse Other Conversions - Other Father FH: cataracts Conversions - Other Maternal Grandmother FH: cataracts Conversions - Other Other cardiovascular disease Conversions - Other Other cardiovascular disease Diabetes Other Emphysema Other Hyperlipidemia Other Hypertension Other Conversions - Other Other FH: cataracts Conversions - Other Other FH: cataracts Conversions - Other Other Lymph node cancer [5] Current Facility-Administered Medications Medication Dose Route Frequency Provider Last Rate Last Admin acetaminophen (Tylenol) tablet 1,000 mg 1,000 mg Oral q6h OLENA Nikki Belcher MD 1,000 mg at 04/19/25 1139 folic acid (Folvite) tablet 1 mg 1 mg Oral Daily Nikki Belcher MD 1 mg at 04/19/25 0825 Kenney powder 1 packet 1 packet Oral BID Vikki Lucia MD 1 packet at 04/19/25 1439 methocarbamol (Robaxin) tablet 500 mg 500 mg Oral q8h Nikki Belcher MD 500 mg at 04/19/25 1439 oxyCODONE (Roxicodone) immediate release tablet 5 mg 5 mg Oral q6h PRN Nikki Belcher MD 5 mg at106/19/24 1137 polyethylene glycol (Miralax) packet 17 g 17 g Oral Daily Rupinder Villar APRN 17 g at 04/19/25 0825 senna-docusate (Anna-Colace) 8.6-50 MG per tablet 1 tablet 1 tablet Oral Nightly Rupinder Villar APRN sodium chloride 0.9 % flush 10 mL 10 mL Intravenous q12h Nikki Belcher MD And sodium chloride 0.9 % flush 10 mL 10 mL Intravenous PRN Nikki Belcher MD No current outpatient medications on file. * Consults - Grisel Tapia RD - 04/19/2025 1:30 PM ESTAssociated Order(s): IP CONSULT TO NUTRITION SERVICES Adult Nutrition Evaluation Note Parul Leone 64 y.o. female CSN: [id number] Room/Bed Nutrition evaluation type: assessment Reason for evaluation: provider consult; fragility fracture Hospital course: presenting with a acutely altered mentation following fall with left sided femur fracture. Past medical/ surgical history: IBS, T2DM, CHF, HLD, GERD Social history: lives with sister Additional comments: Pt in ED during time of assessment Vitals and Basic Assessment: BP: 128/76 Temp: 36.9 ??C (98.5 ??F) Oxygen Therapy: None (Room air) [place] Coma Scale Score: 14 Renaldo Scale Score: 18 Allergies: Cow Milk Medications: Current Scheduled Medications[1] Current Continuous Medications[2] Current PRN Medications[3] Meds were reviewed: Yes Labs: Lab Results Component Value Date GLUCOSE 130 (H) 04/19/2025 CALCIUM 9.1 04/19/2025 NA 137 04/19/2025 K 4.7 04/19/2025 CO2 24 04/19/2025 CL 103 04/19/2025 BUN 10 04/19/2025 CREATININE 0.71 04/19/2025 Anthropometrics: Height: 160 cm (5' 2.99 ) Weight: 58.6 kg (129 lb 3 oz) BMI (Calculated): 22.89 Weight Evaluation: Normal (BMI 18.5-24.9) [place] Body Weight (kg): 52.4 Percent [place] Body Weight: 112 Wt Readings from Last 10 Encounters: 04/18/25 58.6 kg (129 lb 3 oz) 05/18/15 104 kg (230 lb 4 oz) 01/12/15 99.9 kg (220 lb 3.1 oz) 10/13/14 101 kg (221 lb 9 oz) Estimated Needs: Metabolic Cart Study Results: Current Nutrition Intake: Diet Order: Adult Diet Diet Texture: Regular Adult Carbohydrate Restriction: Consistent CHO 2 (2341-1083 Bruna, 80 g/meal) Percent Meals Eaten (%): no intakes yet noted Diet Experience and Nutrition History: Diet Education Provided: Will monitor Pertinent home medications: none noted Nutrition Focused Physical Exam: Unable to Complete Exam: Unable to access exam locations Physical exam performed on (date): Assessment of Malnutrition: Nutrition Problem: Increased nutrient needs bruna/pro related to surgical demand as evidenced by femur fracture, plan OR04/20. Status of Nutrition Diagnosis: New Nutrition Interventions and Recommendations: Recommend CC2, 2 gm Na diet Add Kenney BID Check Hgb A1C Nutrition Monitoring and Goals: PO intakes >75% of meals Aid in wound healing A1C </=6.5 Acuity Level: [address] [1] acetaminophen, 1,000 mg, Oral, q6h OLENA folic acid, 1 mg, Oral, Daily methocarbamol, 500 mg, Oral, q8h polyethylene glycol, 17 g, Oral, Daily senna-docusate, 1 tablet, Oral, Nightly sodium chloride, 10 mL, Intravenous, q12h [2] [3] PRN medications: oxyCODONE, Insert peripheral IV AND Saline lock IV AND sodium chlorideAND sodium chloride * Progress Notes - Audrey Molina RN - 04/19/2025 1:01 PM EST Case Management Adult Initial Progress Note Parul Leone 64 y.o. female CSN: [id number] Admission: 04/18/2025 10:23 PM Primary Problem: Fall at home, initial encounter Administrative Office Specialist reviewed chart and spoke with patient's sister, Quin, to complete this Initial Case Management Assessment. PCP: Tho Bowden MD Emergency Contact: Extended Emergency Contact Information Primary Emergency Contact: Quin alves Mobile Relation: Sister Preferred language: Senegalese Varnish Filterer needed? No Secondary Emergency Contact: Yousif Leone Mobile Relation: Son Preferred language: Senegalese Varnish Filterer needed? No Insurance: Primary Visit Coverage Payer Plan Sponsor Code Group Number Group Name ANTHEM MEDICARE ANTHEM SENIOR ADVANTAGE [id number] Primary Visit Coverage Subscriber Subscriber ID Subscriber Name Subscriber N Subscriber Address [id number] VasuParul S [id number] [address] [place] [address] Patient information: Primary Caregiver: Self Support System: Immediate family Daily Living Activities: Functional Status: Independent Living Arrangements: Family (sister and nephew) Type of Residence: Private residence, Single Level [address] [place] [address] Smoker in the Home?: No Current DME: Equipment Currently Used at Home: none Current DME Provider: No DME, HH, HI, or dialysis Income Information: Income Source: Disabled Income/Expense Information: Expenses exceed income Current Resources Utilized: None Housing Circumstances-Z Codes: Housing Circumstances (select all that apply): Low Income (101-300% Federal Poverty Guidlines) - Z596 Anticipated Discharge Date: TBD Patient's Discharge Goal: Patient/Family Anticipates Transition to: inpatient rehabilitation facility, home with family Assistance Available at Discharge: Current Outpatient/Agency/Support Group: other (see comments) (none) Availability of Care Givers (#Hours): 24 hours Discharge Transport: Transportation Anticipated: family or friend will provide Follow Up Transport: Transportation Needed to Follow up Appoinments: Family/Friend will Provide Home Health / Home Infusion / Outpatient Dialysis Services: Current DME Provider: No DME, HH, HI, or dialysis Living Will/Advance Directive/Power of Carousel Operator /Guardian: Pre-existing DNR/DNI Order: No Additional Comments: Per primary provider, pt is pending OR with [facility] on 04/20. Pt will need post op PT/OT eval. Pt is currently confused but was independent with ADLs prior to admission. Pt lives withher sister, Quin, and nephew. Quin can help 07/01 and provide transportation once pt is at home.Quin stated she would only be agreeable to [facility] if pt gets therapy recs. She did not want pt to go to SNF. She would rather take pt home. CM confirmed contact information, address, and PCP were correct. Audrey Molina RN * Hospital Course - Sandy Wilks PA - 04/19/2025 12:54 PM EST Parul Leone is a 64 y/o F w/ PMHx of HTN, MDD/Anxiety, Osteopenia, Arthritis, chronic pain CAD s/pPCI w/ CHF on Plavix, GERD, HLD, Migraines, asthma, COPD, Vitamin D deficiency, gastric bypass and IBS, admitted from OSH on 04/18 s/p fall on 04/17. Patient tripped in a hole in the yard and suffered a L periprosthetic femur fx. Concern at OSH for stroke d/t AMS, work up negative. ORT, Medicine and Neuro consulted. Interval: Patient sitting up in bed A&O. VSS. KENIAEmerita TRAMMELL. On RA, no SOA. H/H this AM stable. Patient to follow up with her PCP on 05/04 to follow up her labs. Tolerating PO diet, no N/V, abd pain. Last BM yesterday. Mobilizing as able with assistance. Pain well controlled. Discussed return precautions. Discussed plan of care with patient/family, who is in understanding. No further concerns per patient or nursing. Physical therapy and occupational therapy evaluated the patient during hospitalization and recommend acute rehab. At the time of discharge the patient was hemodynamically stable, tolerating PO, voiding spontaneously, normal bowel function, mobilizing appropriately, with their pain controlled with PO medication. At this time, the patient has obtained the maximum benefit from the present hospital stay, and so will be discharged home with home PT/OT as patient declines acute rehab. DVT prophylaxis: Enoxaparin 30 BID through 05/15 Medication Changes: Decrease Metoprolol to 12.5 daily Decrease Trazodone to 50 mg nightly Start taking Folci acid 1mg daily Start taking Trinatal one tablet daily Procedures: 04/21: ORIF periprosthetic DF fx Mobility Restrictions: LLE: WBAT Wound Care: LLE: If bandage becomes wet, soiled, or falls off it may be replaced with a clean dry gauze dressing as needed. ОЛЕГ wrap should be removed 72 hours following surgery, and then re-applied daily for swelling as needed taking care not to remove the sterile OR dressing underneath. Incidental Findings: None Follow up: Primary care provider 1-2 weeks following discharge for post-hospitalization evaluation, review of incidental findings and management of chronic medical issues. This was discussed with patient, who states they do have a primary care provider that they are established with and they are understandingof follow up instructions. ORT: 05/04/28 @ 0830 with Robina James @ Orthopa[facility] Surgery [facility]; [facility], [address] [place] [address], [facility], Room [address], [place] [address], # [phone]. Neurology: Follow up with Neurology [address] [place] [address] [address], [facility], [place] [address]. The clinic will call you with an appointment. [facility] (Saturday clinic) as needed; [address] [facility] 1st [place] [address] Questions or Concerns and Appointments If there are questions or concerns after discharge from the hospital, please call [phone] and ask for [facility] Nurse. Working hours are Saturday - Saturday 8:00 AM to 4:00 PM. After hours, weekends and holidays please call [phone] and ask for the resident director hr communications for [facility]. For appointments please call [phone]. Medication requests should be made between the hours of 9:00 AM to 3:00 PM Saturday thru Saturday. Please note that based upon recent changes to [place] law related to prescribing opioid pain medications, our providers will not provide refills on controlled medications after your hospital discharge following a major surgery or trauma. [place] 218[place], [place] 201 KAR9:260. * Consults - Lorraine Red MD - 04/19/2025 12:45 PM ESTAssociated Order(s): Inpatient consult to hospitalist Inpatient consult to hospitalist Consult performed by: Lorraine Red MD Consult ordered by: Yousif Anderson DO Reason For Consult Altered mentation Requesting Service: Trauma surgery Requested Date/Time: 08, 04/19/2025 History Of Present Illness Parul Leone is a 64-year-old female W/history of HTN, MDD/anxiety/mood disorders, chronic pain (onchronic opiates and baclofen), CAD s/p PCI W/CHF (unknown EF), GERD, migraines, hyperlipidemia, IBS, T2-DM presenting with a acutely altered mentation following fall with left sided femur fracture. Patient presents W/adult son, [id number], and sister; patient lives W/her sister. Patient is able to provide minimal details regarding her presentation. She is reliably able to answer yes and no appropriately, but does not appear to be able to expound upon any questions despite apparent comprehension. Sister reports the following: On the evening of 04/17/2025 patient and her sister were walking in the dark in their yd when patient experienced a fall after ???twisting her knee . Sister confirms that has the left leg, patient reported pain immediately after the fall. The fall did occur next to a concrete step, but patient's sister did not witness the fall and cannot confirm traumatic injury to the head or not. Sister does note that patient was at baseline mental status (which is essentially normal Aox4) both prior to the fall and directly after the fall--patient was talking clearly without any evidence of aphasia, no confusion, no facial drooping, simply complaining about pain in the hip. Patient did not report head pain at this time, but family did not ascertain whether or not patient had actually had a traumatic injury to the head; she did not lose consciousness, she did not experience any atypical movements at this time, did not experience incontinence, and did not bite her tongue. Later that evening starting around 6 hours post injury, patient became progressively more sleepy and then progressively more confused and began answering questions less frequently. She then developedprofuse vomiting (which isn't typical for Pt) that led to dry heaves; patient was not able to take her nighttime medications of which there are many as detailed below. With the onset of vomiting, patient is also noted to exhibit shaking and the appearance of her ???arms giving out?? when she attempted to move herself. This constellation of symptoms progressively worsened until patient's sister was able to control vomiting W/a dose of Zofran--it then reported to [facility] ED. Patient's sister confirms that she has not extensive pharmaceutical history. The only new/recently titrated medication includes Atarax which was recently increased from daily PRN to three times a day However, she confirms that patient is currently taking all of the following: Vraylar, Seroquel, ropinirole, Topamax, trazodone, Effexor, [place], Atarax, baclofen, oxybutynin, Nurtec, Emgality In terms of review of systems/preceding symptoms: Patient has a known history of heart failure and COPD but has been compliant W/her medications (including fluticasone/salmeterol, Lasix, metoprolol) She has had no shortness of air, no chest pain, no recent palpitations; denies fever/chills, no newor worsening cough, no recent lower urinary tract symptoms. Patient denies headache Of note, patient is on Plavix following PCI several years prior. Social history: No smoker No alcohol use No illicit substances Medical/Surgical/Social/Family History I have reviewed and updated the patient history. Allergies Milk (cow) Medications Current Medications[1] Review of Systems Negative other than as noted above or below in problem focused assessment and plan; limited abilityto collected directly from patient secondary to apparent aphasia Vitals Temp: [36.6 ??C (97.9 ??F)-37.7 ??C (99.9 ??F)] 36.9 ??C (98.5 ??F) Heart Rate: [83-90] 90 Resp: [16-20] 18 BP: (126-136)/(76-84) 128/76 Physical Exam GEN/PSY: Thin middle-aged to elderly woman appearing greater than stated age in no acute distress; oriented to self alone, euthymic, cooperative; no AVH/RIS HEENT: EOMI, mmm NEURO: 10/19 strength in the bilateral upper extremities, moving lower extremities appropriately; no facial droop; speech is atypical W/apparent appropriate comprehension but with a single word answersalone--more comprehensive/detailed questions render aphasia so overall poor fluency and overall increased effort; no atypical movements or automatisms; PERRLA; adult accentuation negative, Kernig negative CV/VOL: RRR w/o fx suspicious for rubs, murmurs; Cap refill <2 seconds, BL radial and PT pulses palpable and equal; no signs of dependent edema CHEST: CTAB; no wheezes, crackles, or other appreciable adventitious auscultatory fx; Pt demonstrates no increase in WOB/no accessory muscle use on room air. ABD: No rebounding/guarding, non tender in all four quadrants. : No suprapubic abdominal pain; further examination not indicated MSK: Endorsing pain (W/ Yes ) to right lower with the movement SKN: No demonstrable rash or wounds on exposed skin; no clear traumatic injury of the scalp or otherwise Results Review I have reviewed the latest lab and imaging results. CT Femur Left wo IV Contrast Result Date: 04/19/2025 Impression: Redemonstrated comminuted and mildly displaced periprosthetic fracture involving the distal left femur, better evaluated on the CT knee performed earlier same day given streak artifact onthe current exam. Intact proximal femur. CRITICAL RESULT: No. COMMUNICATION: Per this written report. Preliminary report signed by Olimpia Izaguirre MD on 04/19/2025 4:05 AM By electronically signing this report, I, the attending physician, attest that I have personally reviewed the images/data for the above examination(s) and agree with the final edited report. Drafted by Olimpia Izaguirre MD on 04/19/2025 3:53 AM Final report signed by Dennis Ibrahim MD on 04/19/2025 4:[address] Knee Left wo IV Contrast Result Date: 04/19/2025 Impression: Comminuted mildly displaced periprosthetic fracture CRITICAL RESULT: No. COMMUNICATION:Per this written report. By electronically signing this report, I, the attending physician, attest that I have personally reviewed the images/data for the above examination(s) and agree with the final edited report. Drafted by Kathryn Carr MD on 04/19/2025 2:17 AM Final report signed by Dennis Ibrahim MD on 04/19/2025 3:[address] Head wo IV Contrast Result Date: 04/19/2025 Impression: No acute intracranial abnormality. CRITICAL RESULT: No. COMMUNICATION: Per this writtenreport. Preliminary report signed by Olimpia Izaguirre MD on 04/19/2025 2:03 AM By electronically signing this report, I, the attending physician, attest that I have personally reviewed the images/datafor the above examination(s) and agree with the final edited report. Drafted by Olimpia Izaguirre MDon 04/19/2025 1:59 AM Final report signed by Dennis Ibrahim MD on 04/19/2025 2:37 AM XR Hip Left 2 or 3 Views Including Pelvis Result Date: 04/19/2025 Impression: Mildly displaced periprosthetic fracture through the distal diaphysis of the femur withoverlying soft tissue swelling and small suprapatellar effusion. CRITICAL RESULT: No. COMMUNICATION: Per this written report. Drafted by Gabriela Nelson MD on 04/19/2025 12:35 AM Final report signed by Gabriela Nelson MD on 04/19/2025 12:40 AM XR Femur Left 2+ Views Result Date: 04/19/2025 Impression: Mildly displaced periprosthetic fracture through the distal diaphysis of the femur withoverlying soft tissue swelling and small suprapatellar effusion. CRITICAL RESULT: No. COMMUNICATION: Per this written report. Drafted by Gabriela Nelson MD on 04/19/2025 12:35 AM Final report signed by Gabriela Nelson MD on 04/19/2025 12:40 AM XR Tibia Fibula Left 2+ Views Result Date: 04/19/2025 Impression: Mildly displaced periprosthetic fracture through the distal diaphysis of the femur withoverlying soft tissue swelling and small suprapatellar effusion. CRITICAL RESULT: No. COMMUNICATION: Per this written report. Drafted by Gabriela Nelson MD on 04/19/2025 12:35 AM Final report signed by Gabriela Nelson MD on 04/19/2025 12:40 AM XR Knee Left 3 Views Result Date: 04/19/2025 Impression: Mildly displaced periprosthetic fracture through the distal diaphysis of the femur withoverlying soft tissue swelling and small suprapatellar effusion. CRITICAL RESULT: No. COMMUNICATION: Per this written report. Drafted by Gabriela Nelson MD on 04/19/2025 12:35 AM Final report signed by Gabriela Nelson MD on 04/19/2025 12:40 AM Labs in last 18 hours CBC WBC 11.36 (H) Hb 13.0 Plt 256 Hct 38.4 ANC 9.27 (H) INR 1.0, PTT ??, Anti-Xa ?? BMP Na 137 Cl 103 BUN 10 Glu 130 (H) K 4.7 Co2 24 Cr 0.71 Ca 9.1 iCa 4.4 (L) Mg ??, Phos ?? Lactate ?? LFT AST 46 (H) AlkPhos 110 T Prot 6.4 ALK 30 Bili 0.6 Alb ?? D.Bili ?? Assessment & Plan Fall at home, initial encounter Closed fracture of left femur 64-year-old female W/history of HTN, MDD/anxiety/mood disorders, chronic pain (on chronic opiates and baclofen), CAD s/p PCI W/CHF (unknown EF), GERD, migraines, hyperlipidemia, IBS, T2-DM presentingwith a acutely altered mentation following fall with left sided femur fracture Acute encephalopathy - Interestingly, acute encephalopathy occurring following fall rather than preceding fall - Patient with no history of similar bouts of encephalopathy - Significant vascular risk factors including history of coronary artery disease, reportedly compliant on Lipitor; no history of TIA nor CVA - CT scans x2 of the head have revealed no evidence of stroke - On Plavix secondary to being s/p PCI - No known loss of consciousness event nor head trauma but fall technically unwitnessed - No reported seizure-like activity nor classic sequela like postictal confusion, incontinence, nortongue biting - No recent signs or symptoms of infection--minimal likely reactive leukocytosis and afebrile - Lives with the family who adamantly deny illicit substance use and alcohol use - Does has a history of sleeve gastrectomy technically putting her at risk of vitamin deficiencies - Physical exam most concerning for aphasia -Significant concerns for polypharmacy as well, though it would be atypical for patient to have a sudden onset of aphasia following a fall--Topamax noted to be able to cause aphasia particularly in the setting of polypharmacy as exhibited in this patient Recommendations: - Metabolic workup: B12, Vitamin D - No indication for further infectious workup - Guillaume's phenomenon, evolving TIA/stroke, and atypical migraine aura remain on ddx: Would consult Neurology for further evaluation and potential imaging recommendations; personally would get MRI headwith and without contrast - Pending Neuro eval would consider EEG, seizure precautions - Would hold topiramate, hold Seroquel, hold Vraylar, hold trazodone. Resume home dose Effexor, resume at least half home dose baclofen, pain control per primary (patient on chronic [place]), would limit Atarax to no more than 25mg q8 Fall with left-sided femur fracture - Management per primary; would note that patient has a home prescription for [place] which may require adjustments to multimodal pain control Chronic medical conditions: MDD/FAMILIA - Resume Effexor, hold home antipsychotics as above - Will hold trazodone Migraines - Hold topiramate - If headaches develop, would recommend treating W/migraine cocktail per neuro reccs CAD s/p PCI - Remote PCI, would hold Plavix until neuro eval; evolving bleed remains on ddx - Resume Lipitor Heart failure, known ejection fraction - Resume home dose metoprolol succinate - Resume home dose Lasix if not on day of operative intervention - Would recommend echocardiogram prior to operative intervention COPD - Resume home equivalent of fluticasone salmeterol HTN - Resuming metoprolol as above, does not appear to be on any dedicated antihypertensives GERD - Okay to resume famotidine; would hold off on PPI given osteoporosis/fragility fx Osteoporosis - Reportedly on alendronate - Would recommend consulting bone mineral density nephrology given fall W/fracture Chronic back pain - Would resume home baclofen at least a half home dose to avoid withdrawal syndrome - Pain control as above Irritable bowel syndrome - Would hold dicyclomine/colestipol - Bowel regimen per primary; should patient develop loose stools, can consider resuming colestipol and adjusting bowel regimen appropriate Urge incontinence - In the setting of concern for polypharmacy, hold oxybutynin T2 DM - On metformin at home, unclear diagnosis - Would recommend A1c, SSI Recommendations discussed W/attending physician Dr. Ivory Rodriguez. Will discuss W/primary team. Lorraine Red MD PGY-3, IM-PCT Secure Chat/Pager: [phone] [1] Current Facility-Administered Medications Medication Dose Route Frequency Provider Last Rate Last Admin acetaminophen (Tylenol) tablet 1,000 mg 1,000 mg Oral q6h OLENA Nikki Belcher MD 1,000 mg at 04/19/25 1139 folic acid (Folvite) tablet 1 mg 1 mg Oral Daily Nikki Belcher MD 1 mg at 04/19/25 0825 methocarbamol (Robaxin) tablet 500 mg 500 mg Oral q8h Nikki Belcher MD oxyCODONE (Roxicodone) immediate release tablet 5 mg 5 mg Oral q6h PRN Nikki Belcher MD 5 mg at106/19/24 1137 polyethylene glycol (Miralax) packet 17 g 17 g Oral Daily Rupinder Villar APRN 17 g at 04/19/25 0825 senna-docusate (Anna-Colace) 8.6-50 MG per tablet 1 tablet 1 tablet Oral Nightly Rupinder Villar PLANT MAINTENANCE TECHNICIAN sodium chloride 0.9 % flush 10 mL 10 mL Intravenous q12h Nikki Belcher MD And sodium chloride 0.9 % flush 10 mL 10 mL Intravenous PRN Nikki Belcher MD No current outpatient medications on file. Cosigned by Quique Rodriguez MD at 04/19/2025 5:18 PM EST Associated attestation - Quique Rodriguez MD - 04/19/2025 5:18 PM EST I saw and evaluated the patient. I discussed the case with the resident/fellow and agree with the findings and plan as documented. Once brain bleed ruled out and okay from neurology standpoint, will need to resume plavix. If no clear neurological reason found, would recommend consulting psych as they can help guide outpatient treatment plan for her chronic psych issues so as to avoid polypharmacy. * Nursing Note - Samina Gaytan RN - 04/19/2025 12:45 PM EST Orthopedic Transition Nurse Note General: Spoke with: Patient, Bedside RN, and Primary Team Assessment and Interventions: Assessed: Brace Brace Intervention: Properly fitting and LLE TROM brace locked Education: Education provided on: Brace, Pain protocol/management, and Ortho trauma booklet given Plan of Care: Follow up with TBD. Op-Plan: Awaiting OR on 04/20/2025 for fixation of L periprosthetic distal femur fx. Contact Card Given: no Comments: Patient in chair. Discussed OR plans with patient. Patient verbalized understanding. LLE: Remove TROM brace at least once daily for skin check and hygiene. While brace is removed, keeplimb in neutral (flat) position. For medical questions or concerns after discharge, please contact the Orthopedic Transition Nurse at [phone] Saturday through Saturday 8:00 am to 2:30 pm. If you feel your concern is a medical emergency please call 911 immediately. Based upon recent changes to [place] law related to prescribing opioid pain medications, our providers will not provide more than a 14 day supply of controlled medications following a major surgery or trauma from the date of your injury or hospital discharge. [place], [place] 201 [place] 9:260. * Care Plan - Semaj Nix RN - 04/19/2025 12:43 PM EST Problem: Adult Inpatient Plan of Care Goal: Plan of Care Review Outcome: Ongoing, Progressing Flowsheets (Taken 04/19/2025 1200) Progress: improving Plan of Care Reviewed With: patient Goal: Patient-Specific Goal (Individualized) Outcome: Ongoing, Progressing Goal: Absence of Hospital-Acquired Illness or Injury Outcome: Ongoing, Progressing Intervention: Identify and Manage Fall Risk Flowsheets (Taken 04/19/2025 1200) Safety Promotion/Fall Prevention: activity supervised Intervention: Prevent Skin Injury Flowsheets (Taken 04/19/2025 1200) Body Position: weight shifting Skin Protection: pulse oximeter probe site changed Goal: Optimal Comfort and Wellbeing Outcome: Ongoing, Progressing Intervention: Monitor Pain and Promote Comfort Flowsheets (Taken 04/19/2025 1200) Pain Management Interventions: medication (see MAR) Problem: Skin Injury Risk Increased Goal: Skin Health and Integrity Outcome: Ongoing, Progressing Intervention: Optimize Skin Protection Flowsheets (Taken 04/19/2025 1200) Activity Management: activity adjusted per tolerance Pressure Reduction Techniques: frequent weight shift encouraged heels elevated off bed pressure points protected Skin Protection: pulse oximeter probe site changed Head of Bed (HOB) Positioning: HOB elevated Intervention: Promote and Optimize Oral Intake Flowsheets (Taken 04/19/2025 1200) Nutrition Interventions: diet adjusted * Progress Notes - Chel Pearson - 04/19/2025 9:37 AM EST OCCUPATIONAL THERAPY ASSESSMENT PATIENT DATA Patient Name Parul Leone Session Date 04/19/2025 OT Discharge Recommendations Acute rehab Equipment Recommendations Defer to facility HISTORY Parul Leone is 64 y.o. female admitted 04/18/2025 for work-up of Fall at home, initial encounter. Hospital Course 1. Altered mental status, unspecified altered mental status type 2. 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, initial encounter 3. Fall, initial encounter 4. Polypharmacy Procedures (if applicable) Past Medical History Patient has a past medical history of Body mass index (bmi) 38.0-38.9, adult, Cough, Personal history of other diseases of the respiratory system, and Personal history of other specified conditions. Past Surgical History Patient has a past surgical history that includes Gastric bypass (N/A); Cholecystectomy (N/A); Tubal ligation (N/A); cath stent placement/ cath placement of stent (N/A); and Hysterectomy (N/A). MOBILITY GUIDELINES Mobility Protocol: General - Mobility Guidelines Extremity Precautions: Extremity Precautions Extremity: LLE Mobility Restrictions (LLE): Non-weight bear (NWB) Type of Brace (LLE): TROM Brace TROM Brace Wear Time Protocol: Remove for skin inspection and hygiene Other mobility precautions: No other precautions required PRECAUTIONS Medical Precautions Medical Precautions: Fall precautions SUBJECTIVE PARTICIPANTS IN CARE Patient/Caregiver Comments Patient participates throughout session. Visitors Present No Varnish Filterer (if applicable) PRESENTATION Oxygen None (Room air) Telemetry No Lines and Tubes Peripheral IV 04/18/25 Anterior;Right Forearm (Active) Peripheral IV 04/19/25 Anterior;Left;Proximal Forearm (Active) Pre-Session Supine, Head of bed elevated RN and pt agreeable to session. Post-Session Sitting in chair, RN notified, Call light in reach No chair alarm available for use. RN aware. All needs met. Bracing (if applicable) Orthoses: TROM - Left TROM - Left: Locked HOME LIVING/SET-UP Lives With Alone Home Type House Home Equipment None Home Layout One level Bathroom Layout (unable to obtain due to altered cognition) Bathroom: Toilet: (unable to obtain dueto altered cognition) (unable to obtain due to altered cognition.) Additional Comments Unable to obtain information due to altered mentation. No family present on evaluation, some information via CM note with sister contacted this admission. PRIOR LEVEL OF FUNCTION Receives help from No assist required prior to admission Level of Mobility Ambulatory- community Mobility [place] Independent gait without device History of Falls ADL Performance ADL Performance: Independent (Patient sister provided prior function information.) PATIENT/FAMILY GOALS No goals stated on this date. OBJECTIVE PAIN Pt endorses pain in LLE, no numerical rating given. Pt positioned for comfort in chair with pillowsfor offloading. RN aware. DELIRIUM SCREENING RASS: Drowsy Confusion Assessment Method-ICU (CAM-ICU/PCAM-ICU) Feature 3: Altered Level of Consciousness: Positive COGNITION Overall Cognitive Status Impaired Arousal/Alertness Delayed responses to stimuli Mood/Behavior Flat affect, Confused, Lethargic Orientation Oriented to person, Disoriented to situation, Disoriented to time, Disoriented to place Command Following Single Step Commands: With repetition, With increased time, 50% of the time Multi-Step Commands: Unable to follow commands Method of Communication Verbal Additional Observations Attention Span: Difficulty dividing attention, Impaired sustained attention, Difficulty attending to directions Problem Solving: Assistance required to identify errors made, Assistance required to generate solutions, Assistance required to implement solutions Cognitive Skill Development Pt impairments include inattention, confusion, and decreased alertness.Pt benefits from frequent reorientation and simple, clear commands, and increased time/verbal cues. When cued for orientation questions, pt perseverates on prior response, cannot process new questionand respond appropriately. (ex: cued for month and year, pt repeats year with choices. When cued for location, pt reports x2). Pt responds well to interventions, presents with increased attention and alertness by end of session VISION Baseline Vision Unable to assess due to altered cognition . Current Vision (if different) RIGHT UPPER EXTREMITY EXAMINATION Range of Motion Within Functional Limits Manual Muscle Testing Within functional limits Light Touch Sensation (Unable to assess due to altered cognition) LEFT UPPER EXTREMITY EXAMINATION Range of Motion Within Functional Limits Manual Muscle Testing Within functional limits Light Touch Sensation (Unable to assess due to altered cognition) RIGHT LOWER EXTREMITY EXAMINATION Range of Motion Within Functional Limits Manual Muscle Testing Within functional limits Light Touch Sensation (Unable to assess due to altered cognition) LEFT LOWER EXTREMITY EXAMINATION Range of Motion Exceptions to WFL (Patient in TROM brace locked in extension) Manual Muscle Testing (Patient unable to bear weight at this time) Light Touch Sensation (Unable to assess due to altered cognition) INTERVENTIONS SELF-CARE Treatment Minutes (if applicable) 26 Comments Skilled services provided via: Environmental preparation for safe access to treatment area, to reduce risk for falls and adverse reactions. Pacing and grading of tasks to promote functional independence and just right challenge. Pt requires increased time throughout session due to cognitive deficits, pain, rapid fatigue LLE TROM adjusted to fit properly. Pt educated on LLE NWB status. Pt limited by cognitive deficits, pain, and generalized weakness. Ptdoes not adhere to WB precautions. Pt endorses dizziness with transition to EOB. Vital signs monitored throughout session. BP as follows: 125/86 (97) EOB 127/82 (95) up to chair Pt performs initial sit to stand with RW, clears buttock 50% off EOB. Limited by pain and cognitivestatus on this date. Second sit to stand clearance performed with MAX A and SUPERVISOR RECEIVING AND PROCESSING x2 and able to pivot to chair with MAX VC for sequencing. Level of Ford Adaptive Equipment Utilized Interventions Grooming Minimum assistance Chair level Pt provided with wet washcloth to complete face washing andpromote alertness and attention. Pt requires MOD verbal cues for thoroughness. Lower Body Dressing Sock Level of Assistance: Dependent Pt limited by pain, impaired balance, and cognitive status on this date. Pt cannot attain compensatory position with RLE despite cues for attempting figure 4. Health Management Pt educated on role of skilled occupational therapy services including frequency of session and discharge planning to promote carryover of care. Pt receptive of information and verbalizes understanding. Pt educated on the importance of remaining upright in chair for 1-2 hours 3x per day to reduce riskfor deconditioning, pressure sores, and pneumonia. Pt receptive to information and verbalizes understanding. BED MOBILITY Level of Ford Physical/Non- physical Assist Adaptive Equipment Utilized Scooting/ Bridging Minimum assist (75% patient's effort) Set-up required, Verbal Cues, Additional assist utilized for safety Bed rails Supine to Sit Maximum assist (25% patient's effort) Set-up required, Verbal Cues, Additional assistutilized for safety, HOB elevated TRANSFERS Level of Ford Physical/Non- physical Assist Adaptive Equipment Utilized Sit to Stand Maximum assist (25% patient's effort) Nonverbal cues (demo/gestures), Verbal Cues Walker, rolling Stand to sit Maximum assist (25% patient's effort) Verbal Cues, Nonverbal cues (demo/gestures), Maximal cues, Set-up required, Additional assist utilized for safety Hand held assist Bed to Chair Maximum assist (25% patient's effort) Stand-pivot Nonverbal cues (demo/gestures), Verbal Cues, Maximal cues, Set-up required, Additional assist utilized for safety Hand held assist STANDARDIZED ASSESSMENTS [facility] 6-Click Daily Activities Help from Other: Don/Doff Regular Lower Body Clothings: A lot Help From Other: Bathing: A lot Help From Other: Toileting: A lot Help From Other: Don/Doff Upper Body Clothings: A lot Help From Other: Grooming: A lot Help From Other: Eating Meals: A lot [facility] 6 Click - Daily Activities Score: 12 ASSESSMENT OT FINDINGS Total treatment time: 41 minutes Pt tolerates session with stable vital signs and no adverse reactions. Upon occupational therapy assessment and evaluation of ADLs, coordination, cognition, strength, balance, and functional mobility, pt requires skilled services. Although pt is a poor historian and further verification is required, pt reports prior to admission, she was independent in self-care and navigated the community without AD. Currently, pt is DEP for lower body self-care tasks and cannot navigate household distances with AD, placing pt at a significant risk for falls and readmission. Pt limitations include rapid fatigue, impaired cognition, pain, impaired balance, and generalized weakness. Pt is most appropriate for acute rehab upon discharge from current setting, as she requires access to frequent medical supervision, 24/ nursing access, and intensive OT/PT/VICTIM ADVOCATE services. It is expected that with this support pt will make significant functional gains. Functional impairments: Impaired ADL performance, Impaired IADL performance, Impaired judgment during ADL, Impaired cognition, Impaired attention, Decreased endurance/ventilation/gas exchange, Impaired executive function, Impaired functional mobility, Impaired balance, Impaired postural/trunk control Evaluation/ Treatment Tolerance (if identified) Patient limited by fatigue, Patient limited by pain Rehab Potential (if identified) Fair, will monitor progress closely Barriers to Discharge (if identified) Ability to acquire knowledge EVAL COMPLEXITY Occupational Profile Expanded review of medical/therapy records and additional review of physical, cognitive, or psychosocial history Performance Deficits Activities of daily living (ADLs), Instrumental activities of daily living (IADLs), Rest and sleep, Leisure, Social participation, Process skills, Social interaction skills, Habits, Routines, Roles Clinical Decision Making Moderate Overall Eval Complexity Moderate OT RECOMMENDATIONS Discharge Destination Acute rehab Discharge Equipment Defer to facility Recommendations for Referral to Another Service (if applicable) Demonstrates Need for Referral to Another Service: Social work PLAN Planned OT Interventions ADL retraining, IADL retraining, Balance training, Bed mobility Training, Joint mobilization, Orthotic fitting/training, ROM, Strengthening, Stretching, Transfer training, Functional mobility, Cognitive retraining, Caregiver education OT Frequency 2 - 5 times per week OT Duration 2 weeks OT Goals OT GOAL DETAILS Time Frame OT Goal 1: Pt will complete BSC transfer with MIN A and LRAD. 2 weeks OT Goal 2: Pt will be oriented x4 in 3/3 sessions. 2 weeks OT Goal 3: Pt will complete lower body dressing with MIN A, LRAD and AE prn. 2 weeks OT Goal 4: Pt will be IND with BUE HEP. 2 weeks Written by Chel Pearson on 04/19/25 at 4:24 PM. Cosigned by Jennifer Sanders at 04/19/2025 4:56 PM EST Associated attestation - Jennifer Sanders - 04/19/2025 4:56 PM EST As the supervising therapist, I have reviewed and agree with this document written by the student therapist for this patient on this date/time. I was present for the intervention and was immediately available for assistance had it been needed. Jennifer Sanders, OTR/L * Progress Notes - Robyn Bowman - 04/19/2025 8:59 AM EST Physical Therapy Evaluation Patient Name: Parul Leone Today's Date: 04/19/2025 PT Discharge Recommendations: Acute rehab Treatment Time: 39 minutes History Parul Leone is 64 y.o. female admitted 04/18/2025 for work-up of Fall at home, initial encounter. Problem List Active Hospital Problems Diagnosis Date Noted Closed fracture of left femur 04/19/2025 Fall at home, initial encounter 04/19/2025 Procedures Past Medical History Patient has a past medical history of Body mass index (bmi) 38.0-38.9, adult, Cough, Personal history of other diseases of the respiratory system, and Personal history of other specified conditions. Past Surgical History Patient has a past surgical history that includes Gastric bypass (N/A); Cholecystectomy (N/A); Tubal ligation (N/A); cath stent placement/ cath placement of stent (N/A); and Hysterectomy (N/A). Precautions Left Lower Extremity Weight Bearing Status: Non-Weight Bearing ROM Precautions: LLE NWB Medical Precautions: Fall precautions TROM AAT LLE locked in extension. Subjective Patient was asleep on entry to the room. Participants in Care Family/Caregiver Present: No Varnish Filterer: Not Applicable Presentation Oxygen Therapy: None (Room air) Lines and Tubes: Intravenous access Pre-Session: Supine, Head of bed elevated, TROM donned. Pre-Session Comments: RN and pt agreeable to session. Post-Session: Sitting in chair, RN notified, Call light in reach Post-Session Comments: No chair alarm available for use. RN aware of session details. All needs met. TROM donned. Orthoses: TROM - Left TROM - Left: Locked Home Living/Set-up Lives With: Family Home Type: House Home Adaptive Equipment: None Home Layout: One level Bathroom: Tub/Shower: (unable to obtain due to altered cognition) Bathroom: Toilet: (unable to obtain due to altered cognition) Bathroom: Accessibility: (unable to obtain due to altered cognition.) Home Living Comments: Unable to obtain information due to altered mentation. Information gathered was from sister, who patient lives with. Prior Level of Function Receives Help From: No assist required prior to admission Level of Mobility: Ambulatory- community Mobility Ford: Independent gait without device ADL Performance: Independent (Patient sister provided prior function information.) Patient/Family Goals Unable to obtain for patient at this time and no family present at time of evaluation. Objective Vital Signs Sitting EOB Post-Session Blood Pressure (mmHg) 125/86 127 / 82 Pain Patient rated pain as a 10/10 in her LLE. RN aware. Delirium Screening RASS: Drowsy Confusion Assessment Method-ICU (CAM-ICU/PCAM-ICU) Feature 3: Altered Level of Consciousness: Positive Cognition Overall Cognitive Status: Impaired Arousal/Alertness: Delayed responses to stimuli Mood/Behavior: Flat affect, Confused, Lethargic Orientation Level: Oriented to name but not birthday, despite cues, Disoriented to situation, Disoriented to time, Disoriented to place Single Step Commands: With repetition, With increased time, 50% of the time Multi-Step Commands: Unable to follow commands Method of Communication: Verbal Right Upper Extremity Examination RUE Assessment: Within Functional Limits Manual Muscle Testing - RUE: Within functional limits Sensation Light Touch: Right Upper Extremity: (Unable to assess due to altered cognition) Left Upper Extremity Examination LUE ROM Assessment LUE Assessment: Within Functional Limits Manual Muscle Testing - LUE Manual Muscle Testing - LUE: Within functional limits Sensation Light Touch: Left Upper Extremity: (Unable to assess due to altered cognition) Right Lower Extremity Examination RLE ROM Assessment RLE Assessment: Within Functional Limits Manual Muscle Testing - RLE Manual Muscle Testing - RLE: Within functional limits Sensation Light Touch: Right Lower Extremity: (Unable to assess due to altered cognition) Left Lower Extremity Examination LLE Assessment: Exceptions to WFL (Patient in TROM brace locked in extension) Manual Muscle Testing: (Patient unable to bear weight at this time) Sensation Light Touch: Left Lower Extremity: (Unable to assess due to altered cognition) Therapeutic Activity (24 minutes) Patient participated in PT interventions targeting functional strength and endurance to improve mobility. See bed mobility, transfers, and balance sections for details. Additional time required for repeated patient instruction, management of patient vitals, and room set-up for safe mobility. Bed Mobility Bed Mobility Exam: Scooting/Bridging Level of Ford: Minimum assist (75% patient's effort) Physical/Nonphysical Assist: Set-up required, Verbal Cues, Additional assist utilized for safety (Extra time needed for scooting- possibly because of pain) Assistive Device: Bed rails Bed Mobility Exam: Supine to Sit Level of Ford: Maximum assist (25% patient's effort) Physical/Nonphysical Assist: Set-up required, Verbal Cues, Additional assist utilized for safety, HOB elevated Transfers Transfer Exam: Sit to stand Level of Ford: Maximum assist (25% patient's effort) Physical/Nonphysical Assist: Nonverbal cues (demo/gestures), Verbal Cues (cues for positioning and precautions for NWB of LLE) Assistive Device: Walker, rolling Transfer Exam: Bed to Chair/Chair to Bed Level of Ford: Maximum assist (25% patient's effort) Physical/Nonphysical Assist: Nonverbal cues (demo/gestures), Verbal Cues, Maximal cues, Set-up required, Additional assist utilized for safety. (Assist with LLE held off ground to maintain NWB status. Chair arm dropped to assist in safe transfer. Patient transferred to right side.) Type of Transfer: Stand-pivot Assistive Device: Hand held assist Balance Static Sitting Balance Static Sitting-Balance Support: Feet supported, Left upper extremity support, Right upper extremitysupport Static Sitting-Level of Assistance: Minimum assistance (Cued patient to keep eyes open and asked questions to help patient stay alert) Static Standing Balance Static Standing-Balance Support: Right upper extremity support, Left upper extremity support (RW) Static Standing-Level of Assistance: Moderate assistance Dynamic Standing Balance Dynamic Standing-Balance Support: Right upper extremity support, Left upper extremity support (SUPERVISOR RECEIVING AND PROCESSING X2) Dynamic Standing-Balance: Lateral weight shifts Dynamic Standing Level of Assistance: Maximum assistance Standardized Assessments Standardized Assessments Standardized Assessments: AMPA 6-Clicks Mobility Assessment AMPA 6-Clicks Mobility Assessment Difficulty patient has turning over in bed (including adjusting bedclothes, sheets, and blankets)?:A little Difficulty patient has sitting down on and standing up from a chair with arms (wheelchair, bedside commode, etc.)?: A lot Difficulty patient has moving from lying on back to sitting on the side of the bed?: A lot How much help does the patient need moving to and from a bed to a chair (including a wheelchair)?: A lot How much help does the patient need to walk in hospital room?: Unable How much help does the patient need climbing 3-5 steps with a railing?: Unable [facility] 6-Clicks Mobility Assessment Total : 11 Assessment Patient presented as very confused and was unable to answer orientation questions and answer questions about tolerance to activities. However, patient became less lethargic once transferred to chair and was able to keep her eyes open. Due to patients lethargy, BP was taken twice. Both BPs were within normal ranges. TROM brace on LLE was also adjusted to increase patient comfort. Patient would benefit from continued therapy in order to address impairments and participation restrictions below. Patient would be unsafe to return home at this time due to being unable to change positions safely andwithout maximal cueing. Patient still pending possible surgical fixation on LLE. Patient may benefit from IRF for the following reasons: Pt remains as a high fall risk with transfers and unable to ambulate or maintain weightbearing restriction and thus is unsafe for discharge to home. Pt would benefit from further instruction improving functional transfers and ambulation. PT anticipates pt would benefit from a short IRF stay where patient could become more independent performing transfers and ambulating. PT anticipates pt would benefit more greatly from IRF than other rehab services due to pt's medicalacuity, level of immobility, and need for improved safety prior to returning home. Impairments: Decreased endurance, ventilation, and/or gas exchange, Impaired attention/alertness, Impaired cognition/safety awareness, Impaired gait dynamics/performance, Impaired functional mobility/transfers, Impaired balance, Impaired postural/trunk control, Impaired motor planning, Decreased strength, Decreased range of motion, Pain Activity Limitations: Inability to sit independently, Impaired attention/alertness, Inability to ambulate independently, Inability to ambulate community distances, Inability to ambulate household distances, Inability to transfer independently, Inability to complete ADLs independently Participation Restrictions: Self-care, Home management Activity Tolerance: Tolerates less than 10 min activity, no significant change in vital signs Evaluation/Treatment Tolerance: Patient limited by fatigue, Patient limited by pain Diagnosis: Decreased endurance and functional mobility. Rehab Potential: Fair, will monitor progress closely Barriers to Discharge: Comorbidities, Ability to acquire knowledge, Limited financial resources Eval Complexity History Profile: 3 or more personal factors and/or comorbidities Clinical Presentation: Evolving clinical presentation with changing characteristics Clinical Decision Making: Moderate complexity PT Recommendations Discharge Destination: Acute rehab Discharge Equipment: Defer to facility Demonstrates Need for Referral to Another Service: Speech language pathology Plan Planned PT Interventions Balance training, Bed mobility training, Transfer training, Wheelchair management/propulsion training, ROM, Strengthening, Functional Mobility PT Frequency 2 - 5 times per week PT Duration 2 weeks Goals PT GOAL DETAILS Time Frame PT Goal 1: Patient will be able to scoot to the EOB with SBA in order to decrease caregiver burden.2 weeks PT Goal 2: Patient will be able to transition supine <> sit with minimal assistance to increase functional capacity. 2 weeks PT Goal 3: Patient will transition sit <> stand with minimal assistance to increase functional mobility. 2 weeks PT Goal 4: Patient will be able to transition bed <> chair with minimal assistance to increase functional participation. 2 weeks PT Goal 5: Patient will be able to propel a wheelchair 100 feet, with rest breaks as needed, to increase functional independence. 2 weeks Written by Robyn Bowman on 04/19/25 at 4:24 PM. Cosigned by Bobbi Alves, PT at 04/19/2025 4:32 PM EST Associated attestation - Bobbi Alves PT - 04/19/2025 4:32 PM EST Read and reviewed. I agree with below PT evaluation/assessment, plan of care, and discharge recommendations. Janae Alves, PT * Assessment & Plan Note - Nikki Belcher MD - 04/19/2025 8:32 AM EST Associated Problem(s): Fall at home, initial encounter Admit to [facility] * Progress Notes - Gabriel Salamanca MD - 04/19/2025 6:30 AM EST ORTHOPAEDIC SURGERY PROGRESS NOTE INTERVAL Comfortable in bed. Discussed that she will go to OR tomorrow (04/20) for operative management of her LEFT periprosthetic distal femur fracture. OK for diet today from othropedic standpoint. Orthopedic Surgery Tertiary Exam Completed 04/19/25 No additional areas of tenderness or deformity noted upon palpation and ROM of upper and lower extremities (excluding known injuries). EXAM General Constitutional No acute distress Head Normocephalic Cardiovascular Perfused Extremities Pulmonary/Chest Symmetric chest expansion Left Lower Extremity: TROM brace in place. Moves TA/GSC/EHL/FHL SILT DP/SP/Sural/Saph/Tib nerve dist. cap refill <2sec, toes wwp ASSESSMENT AND PLAN Parul Leone is a 64 y.o. female patient with L periprosthetic DF fx NPO 12 AM for operative fixation of LEFT distal femur fracture Weight-bearing restrictions: Mobility Orders Mobility Protocol: General - Mobility Guidelines Extremity Precautions: Extremity Precautions Extremity: LLE Mobility Restrictions (LLE): Non-weight bear (NWB) Type of Brace (LLE): TROM Brace TROM Brace Wear Time Protocol: Remove for skin inspection and hygiene Other mobility precautions: No other precautions required Gabriel Salamanca MD Orthopaedic Surgery Resident [facility] Orthopaedic Trauma Service Pager: [phone] Orthopaedic Recon/Spine/Foot and Ankle Service Pager: [phone] Personal Pager: [phone] Cosigned by Ulices Gale MD at 04/19/2025 3:11 PM EST * Assessment & Plan Note - Nikki Belcher MD - 04/19/2025 4:32 AM EST Associated Problem(s): Closed fracture of left femur L periprosthetic femur fx thru distal diaphysis Ortho following * H&P - Nikki Belcher MD - 04/19/2025 4:22 AM ESTAssociated Order(s): Consult to Trauma Surgery Trauma Alert? No Consult to Trauma Surgery Consult performed by: Nikki Belcher MD Consult ordered by: Julia Jacobson APRN Time of Consultation: 419 Time of Trauma Evaluation: 0500 ED Arrival Date: 04/18/2025 ED Arrival Time: 10:10 PM Referring Hospital: [facility] Injury Date: 04/19/2025 Injury Time: unknown Transport Mode: Mode of Arrival: Ambulance Mechanism of Injury Fall Distance from standing Farm Related Injury: no Work Related Injury: no History Of Present Illness Parul Leone is a 64 y.o. female presenting following fall from standing. History limited in setting of patient's mental status, as she is alert and oriented x1 at time of trauma evalution. Per chartreview patient was walking and slipped in a pot hole. She was brought to OSH where she was initially stroke alerted in setting of AMS and slurred speech. However, stroke workup was negative. She alsowas noted to have weakness of her lower extremties, prompting workup. She was found to have a periprosthetic fx of the LLE and was transferred to . At , she continued to be altered, receiving narcan with no improvement of mental status. She was evaluated by ortho. Trauma consulted for eval for a dmission. Pmhx T2DM, migraines, CAD, neuropathy, MDD, FAMILIA, RLS Old Chart Reviewed: no Total fluids given prior to arrival 0 ml. Loss of Consciousness: unknown Past Medical History She has a past medical history of Body mass index (bmi) 38.0-38.9, adult, Cough, Personal history of other diseases of the respiratory system, and Personal history of other specified conditions. Unable to obtain Surgical History She has a past surgical history that includes Gastric bypass (N/A); Cholecystectomy (N/A); Tubal ligation (N/A); cath stent placement/ cath placement of stent (N/A); and Hysterectomy (N/A). Unable to obtain Family History Family History[1] Unable to obtain Social History She reports that she has never smoked. She does not have any smokeless tobacco history on file. No history on file for alcohol use and drug use. Unable to obtain Allergies Milk (cow) Unable to obtain Medications Current Medications[2] Unable to obtain Occupational History Occupational history[3] Employer: No address on file. Unable to obtain Immunizations not reviewed VACCINE / DOSE Flu Tetanus Pneumovax Shingles Review of Systems Relevant review of systems was obtained as able and is negative unless stated above in HPI. Physical Exam Physical exam GENERAL: Patient was in no acute distress. Awake and alert. Only oriented to self. Repeats words, cannot answer most questions appropriately. GCS 14 HEENT: Atraumatic, normocephalic. Pupils were equally round and reactive to light with extraocular movements intact. No hemotympanum. MAXILLOFACIAL: Midface stable, no malocclusion. NECK: No C-spine tenderness, trachea midline, no penetrating injuries or lacerations CHEST: Symmetric expansion, non labored; no crepitus; chest nontender to palpation, no penetrating wounds PULM: Clear to auscultation bilaterally. CV: Regular rate and rhythm without obvious murmur ABD: soft, non-tender, non-distended, no penetrating wounds, no abrasions, no seat belt sign. No rebound or guarding. PELVIS: Stable to anterior-posterior and lateral compression, no tenderness to palpation Musculoskeletal: Strength equivalent in 3/4 extremities, good ROM, sensation intact. No obvious deformities of trunk or limbs, no active bleeding. LLE in knee immobilizer, TTP. VASCULAR: Strongly palpable radial/ulnar/femoral/DP/PT pulses bilaterally with brisk less than 2 second capillary refill. NEURO: CN 2-12 grossly intact and symmetrical bilaterally. No focal neurological defects. BACK: No tenderness, step offs, hematoma, or deformities to the C,T,L spine Rectal exam was deferred. Last Recorded Vitals Blood pressure 136/83, pulse 85, temperature 37.7 ??C (99.9 ??F), temperature source Oral, resp. rate 18, weight 58.6 kg (129 lb 3 oz), SpO2 97%. Angie [place] Coma Scale Best Eye Response: Spontaneous Best Verbal Response: Confused Best Motor Response: Follows commands Angie Coma Scale Score: 14 Intubated No Recent Results Labs in last 18 hours CBC WBC 11.36 (H) Hb 13.0 Plt 256 Hct 38.4 ANC 9.27 (H) INR 1.0, PTT ??, Anti-Xa ?? BMP Na 137 Cl 103 BUN 10 Glu 130 (H) K 4.7 Co2 24 Cr 0.71 Ca 9.1 iCa 4.4 (L) Mg ??, Phos ?? Lactate ?? LFT AST 46 (H) AlkPhos 110 T Prot 6.4 ALK 30 Bili 0.6 Alb ?? D.Bili ?? Radiology FAST not performed / unindicated Images personally reviewed and consistent with the following: Plain Films: XR left knee, right knee XR L femur, tib fib, knee, hip: CT Scans: CT head CT L knee, Femur Angiography: CTA H/N, CTA C/A/P Impression: OSH XR left knee: Comminuted complete transverse fracture of the distal left femoral metaphysis. XR right knee: Right total knee arthroplasty CTA neck home no stenosis or occlusion CTA head: No acute intracranial findings CT head: No acute intracranial findings CTA chest: No acute findings, no pneumothorax or rib fractures CTA abdomen pelvis: no acute findings, history of hysterectomy, gastric bypass and cholecystectomy XR L femur, tib fib, knee, hip: Mildly displaced periprosthetic fracture through the distal diaphysis of the femur with overlying soft tissue swelling and small suprapatellar effusion. CT L Knee: Comminuted mildly displaced periprosthetic fracture CT L Femur: Redemonstrated comminuted and mildly displaced periprosthetic fracture involving the distal left femur, better evaluated on the CT knee performed earlier same day given streak artifact onthe current exam. Intact proximal femur. Assessment & Plan Closed fracture of left femur Present on Admission: Yes L periprosthetic femur fx thru distal diaphysis Ortho following Fall at home, initial encounter Present on Admission: Not Applicable Admit to [facility] patient with AMS in addition to traumatic left femur fx. Ortho following. Will plan to admit with medicine consult for AMS. Disposition: admit to [facility] Nikki Belcher MD [1] Family History Problem Relation Name Age of Onset Bone cancer Other Bone cancer Other Alcohol abuse Other Conversions - Other Father FH: cataracts Conversions - Other Maternal Grandmother FH: cataracts Conversions - Other Other cardiovascular disease Conversions - Other Other cardiovascular disease Diabetes Other Emphysema Other Hyperlipidemia Other Hypertension Other Conversions - Other Other FH: cataracts Conversions - Other Other FH: cataracts Conversions - Other Other Lymph node cancer [2] Current Facility-Administered Medications Medication Dose Route Frequency Provider Last Rate Last Admin acetaminophen (Tylenol) tablet 1,000 mg 1,000 mg Oral q6h OLENA Nikki Belcher MD folic acid (Folvite) tablet 1 mg 1 mg Oral Daily Nikki Belcher MD 1 mg at 04/19/25 0825 methocarbamol (Robaxin) tablet 500 mg 500 mg Oral q8h Nikki Belcher MD oxyCODONE (Roxicodone) immediate release tablet 5 mg 5 mg Oral q6h PRN Nikki Belcher MD polyethylene glycol (Miralax) packet 17 g 17 g Oral Daily Rupinder Villar APRN 17 g at 04/19/25 0825 senna-docusate (Anna-Colace) 8.6-50 MG per tablet 1 tablet 1 tablet Oral Nightly Rupinder Villar APRN sodium chloride 0.9 % flush 10 mL 10 mL Intravenous q12h Nikki Belcher MD And sodium chloride 0.9 % flush 10 mL 10 mL Intravenous PRN Nikki Belcher MD No current outpatient medications on file. [3] Cosigned by Yaneli Trimble MD at 04/25/2025 9:32 AM EST Associated attestation - Yaneli Trimble MD - 04/25/2025 9:32 AM EST I saw and evaluated the patient with the resident/fellow. I discussed the case with the resident/fellow and agree with the findings and plan as documented. * Consults - Arturo Acuna MD - 04/18/2025 11:23 PM ESTAssociated Order(s): IP CONSULT TO ORTHOPAEDICS ORTHOPAEDIC SURGERY TRAUMA CONSULT NOTE Consult Received: 0903 Patient Examined: 2932 CHIEF COMPLAINT AND REASON FOR VISIT Left leg pain HISTORY OF PRESENT ILLNESS Parul Leone is a 64 y.o. female with history of L-TKA performed at an unknown date presents to [facility] as a transfer from OSH for periprosthetic L distal femur fracture. HPI is significantly limited bypatient only stating her first and last name. Per chart review the patient stepped in a pothole andfell on 04/17, presented to an OSH as a stroke alert due to slurred speech and altered mental statuswith negative stroke work-up, transferred to [facility] for her femur fracture. Positive loss of consciousness, on plavix. Unable to obtain further information at this time. Per report, there was concern that patient was intoxicated at time of injury and presentation to OSH. Last PO Intake: unable to obtain Reactions to Metal: unable to obtain MRSA Hx: unable to obtain Prior DVT/PE: unable to obtain Anticoagulants: unable to obtain PAST MEDICAL HISTORY Past Medical History[1] MEDICATIONS Current Medications[2] ALLERGIES Allergies[3] PAST SURGICAL HISTORY Surgical History[4] FAMILY HISTORY Reviewed, Noncontributory. SOCIAL HISTORY Tobacco: unable to obtain EtOH: unable to obtain Illicits: unable to obtain Lives: LETICIA Dooley Employment: unable to obtain REVIEW OF SYSTEMS 14 point review of systems conducted and was otherwise negative except for mentioned in HPI PHYSICAL EXAMINATION General Physical Exam Constitutional No acute distress, Vitals as below Head Normocephalic and atraumatic Cardiovascular Peripheral perfusion intact, pulses as below Pulmonary/Chest Good respiratory effort, symmetric chest expansion, no respiratory difficulty appreciated Neurological Alert and oriented to person, place, and time Psychiatric Normal mood and affect, behavior and judgment Skin No rashes or lesions except as mentioned below, no masses Eyes EOMI, Sclera anicteric Body mass index is 22.88 kg/m??. VITALS: Visit Vitals BP 126/77 Pulse 83 Temp 36.8 ??C (98.3 ??F) (Oral) Resp 20 Wt 58.6 kg (129 lb 3 oz) SpO2 94% BMI 22.88 kg/m?? Smoking Status Never BSA 1.61 m?? FOCUSED MUSCULOSKELETAL EXAM: Clavicles non-tender to palpation bilaterally without crepitus Pelvis stable to AP and lateral compression RIGHT UPPER EXTREMITY Inspection: skin intact, no deformity, non-tender to palpation Range of motion: Full/painless/stable at shoulder, elbow, and wrist Motor: Motor intact ER/IR, Deltoid, Biceps, Triceps, Wrist flexion, Wrist extension, Finger flexion, Finger extension, Finger abduction, EPL, FPL Sensation: Sensation intact to light touch in axillary, radial, median, and ulnar nerve distributions Vascular: Palpable radial pulse, capillary refill <2 seconds, digits warm and well perfused LEFT UPPER EXTREMITY Inspection: skin intact, no deformity, non-tender to palpation Range of motion: Full/painless/stable at shoulder, elbow, and wrist Motor: Motor intact ER/IR, Deltoid, Biceps, Triceps, Wrist flexion, Wrist extension, Finger flexion, Finger extension, Finger abduction, EPL, FPL Sensation: Sensation intact to light touch in axillary, radial, median, and ulnar nerve distributions Vascular: Palpable radial pulse, capillary refill <2 seconds, digits warm and well perfused RIGHT LOWER EXTREMITY Inspection: skin intact, no deformity, non-tender to palpation Range of motion: Full/painless/stable at hip, knee, and ankle Motor: Motor intact HAbd, HF, KE, KF, TA, GSC, EHL, FHL Sensation: Sensation intact to light touch in superficial and deep peroneal, saphenous, sural, and tibial nerve distributions Vascular: Palpable dorsalis pedis and posterior tibialis pulses, capillary refill <2 seconds, digits warm and well perfused LEFT LOWER EXTREMITY Inspection: skin intact, no deformity, tender to palpation about distal femur Range of motion: Limited due to pain/patient participation Motor: Motor intact TA, GSC, EHL, FHL Sensation: Sensation intact to light touch in superficial and deep peroneal, saphenous, sural, and tibial nerve distributions Vascular: Palpable dorsalis pedis and posterior tibialis pulses, capillary refill <2 seconds, digits warm and well perfused IMAGING - Acute, traumatic, left nondisplaced periprosthetic distal femur fracture ASSESSMENT AND PLAN Parul Leone is a 64 y.o. female patient with Acute, traumatic, closed left periprosthetic distal femur fracture Weight bearing restrictions: NWB LLE in TROM brace locked in extension Recommend PTOT evaluation L knee CT scan ordered Ok for diet today Plan for OR 04/20/2025 for ORIF of L periprosthetic distal femur fracture Arturo Acuna MD Orthopedic Surgery PGY-2 [facility] Orthopaedic Trauma Service Pager: [phone] Orthopaedic Recon/Spine/Foot and Ankle Service Pager: [phone] [1] Past Medical History: Diagnosis Date Body mass index (bmi) 38.0-38.9, adult BMI 38.0-38.9,adult Cough Cough Personal history of other diseases of the respiratory system History of bronchitis Personal history of other specified conditions History of nausea [2] No current facility-administered medications for this encounter. No current outpatient medications on file. [3] Allergies Allergen Reactions Milk (Cow) Nausea [4] Past Surgical History: Procedure Laterality Date CATH STENT PLACEMENT/ CATH PLACEMENT OF STENT N/A Cath Stent Placement from [facility] CHOLECYSTECTOMY N/A Cholecystectomy from [facility] GASTRIC BYPASS N/A Gastric Surgery from [facility] HYSTERECTOMY N/A Hysterectomy from [facility] TUBAL LIGATION N/A Tubal Ligation from [facility] Cosigned by Graciela Chauhan MD at 04/19/2025 8:43 AM EST Associated attestation - Graciela Chauhan MD - 04/19/2025 8:43 AM EST Signature only. * ED Provider Notes - Julia Jacobson APRN - 04/18/2025 10:10 PM EST Images from the original note were not included. HPI Chief Complaint Patient presents with Fall Leg Pain Altered Mental Status 64 year old female pmh Essential hypertension,Osteopenia, Arthritis, CAD , hypercholesterolemia, asthma, Back pain, Vitamin D deficiency, S/P gastric bypass, IBS who presents to ED from [facility] for further evaluation by ortho for Left Distal Femur fracture. Patient had a mechanical fall on 04/17/2025, walking to her home. She fell into a hole in the yard.She was unable to bear weight on her left leg, since her fall. She was carried into the house. Her mentation was at baseline at that time. The following day, Sister reports she was acting funny and would fall asleep prompting her to call EMS. Patient presented to OSH as a stroke alert on 04/18/2025. Patient with acute AMS with a negative stroke workup. She was found to have a femur fracture and was transferred to as a trauma for further evaluation. History provided by: Medical records and relative History limited by: Mental status change site interpreter used: No Patient History Past Medical History[1] Surgical History[2] Family History[3] Social History[4] Allergies: Allergies[5] Physical Exam ED Triage Vitals Temp Pulse Resp BP -- -- -- -- SpO2 Temp src Heart Rate Source Patient Position -- -- -- -- BP Location FiO2 (%) -- -- Physical Exam Vitals and nursing note reviewed. Constitutional: Appearance: She is well-developed. HENT: Head: Normocephalic and atraumatic. Eyes: Conjunctiva/sclera: Conjunctivae normal. Cardiovascular: Rate and Rhythm: Normal rate and regular rhythm. Heart sounds: No murmur heard. Pulmonary: Effort: Pulmonary effort is normal. No respiratory distress. Breath sounds: Normal breath sounds. Abdominal: Palpations: Abdomen is soft. Tenderness: There is no abdominal tenderness. Musculoskeletal: General: No swelling. Cervical back: Neck supple. Left lower leg: Bony tenderness present. Skin: General: Skin is warm and dry. Capillary Refill: Capillary refill takes less than 2 seconds. Neurological: Mental Status: She is confused. GCS: GCS eye subscore is 3. GCS verbal subscore is 3. GCS motor subscore is 4. Cranial Nerves: Cranial nerves 2-12 are intact. Sensory: Sensation is intact. Psychiatric: Speech: Speech is delayed. Behavior: Behavior is slowed. Cognition and Memory: Cognition is impaired. Angie Coma Scale Score: 14 ED Course & MDM - 64-year-old female presents to the emergency department from an outside hospital for evaluation of left periprosthetic distal femur fracture sustained from a mechanical fall transferred to ER for orthopedic evaluation. No acute surgical intervention. Outside hospital records reviewed, as patient was sent there for initially for a stroke alert, workup negative. On arrival patient with alteredmental status, patient will open eyes, moves all extremities, responds to pain and oriented to self. She received 2 of IV Narcan without any improvement in symptoms. Additional CT head without contrast ordered no acute findings. Labs unremarkable, no evidence of infectious findings. Cardiac workup negative UA negative drug screen positive for opioids, patient with chronic opioid use. Patient doeshave multiple other drugs on med rec that can be contributing to her altered state. Venous blood gas shows no hypercapnia or hypoxia. No acute surgical intervention by ortho, patient will require admission for altered mental state, Trauma surgery was consulted for admission given patient was transferred as a traumatic fall resulting in Left periprosthetic distal femur fracture. Assessment: 64 y.o. female presents to ED with complaint of femur fracture from fall, AMS . It should be noted that the chronic conditions includes as listed above , which currently is not at goal therapy. This complicates the clinical picture because it Comorbidities: may be exacerbating symptoms, increases the amount and complexity of data to be reviewed, complicates the clinical workup, and increases the risk for morbidity Differential Diagnosis: Femur fracture, ICH, encephalopathy, polypharmacy, UTI, infection, ACS, Acute among others In order to fully explore the differential diagnosis the following treatments and tests were ordered: ED Medication Administration from 04/18/20252029 to 04/19/202527 Date/Time Order Dose Route Action 04/19/2025 0045 EST lactated Ringer's infusion 1,000 mL -- Intravenous Canceled Entry 04/19/2025 0051 EST lactated Ringer's infusion 500 mL 500 mL Intravenous New Bag 04/19/2025 0052 EST naloxone (Narcan) injection 0.4 mg 0.4 mg Intravenous Given 04/19/2025 0116 EST lactated Ringer's infusion 500 mL 0 mL Intravenous Stopped All Other Orders Ordered Status Ordering Provider 04/19/25 0514 ED to floor bed request Once Acknowledged JULIA JACOBSON 04/19/25 0420 Mobility Orders Until discontinued Acknowledged INDIA ABREU 04/19/25 0423 Mobility Orders Until discontinued Acknowledged GRACIELA LAWTON 04/19/25 0417 Consult to Trauma Surgery Once Specialty: Trauma Surgery Provider: (Not yet assigned) Acknowledged JULIA JACOBSON 04/19/25 0225 Troponin T, High Sensitivity, 2 Hour, Plasma PROCEDURE ONCE Final result YOUSIF ANDERSON 04/19/25 0334 Opiates Confirm Urine Once In process JULIA JACOBSON P 04/19/[address] Femur Left wo IV Contrast Once Final result ARTURO ACUNA 04/19/25 0249 NPO diet Diet effective now Acknowledged ARTURO ACUNA 04/19/25 0128 Type and screen Start now Final result YOUSIF ANDERSON 04/19/25 0128 Anti Xa Level Unfractionated Heparin STAT Final result YOUSIF ANDERSON 04/19/25 0128 PT-INR STAT Final result YOUSIF ANDERSON 04/19/25 0128 Acetaminophen, Quantitative, Plasma STAT Final result YOUSIF ANDERSON 04/19/25 0128 Salicylate level STAT Final result YOUSIF ANDERSON 04/19/25 0128 Urinalysis with reflex microscopic (Culture NOT Included) STAT Final result YOUSIF ANDERSON 04/19/25 0128 EKG now - STAT (adult) Once Preliminary result YOUSIF ANDERSON 04/19/25 0128 Troponin now and 120 min STAT Final result YOUSIF ANDERSON 04/19/25 0128 Thyroid Stimulating Hormone, Plasma STAT Final result YOUSIF ANDERSON 04/19/25 0128 Free T4, Plasma STAT Final result YOUSIF ANDERSON 04/19/25 0043 Hepatitis C Antibody - ED Once Final result JULIA JACOBSON P 04/19/25 0043 ED Protocol - HIV 1/2 Antibody/Antigen Screen Once Final result JULIA JACOBSON P 04/19/25 0043 ED HIV 1/2 Antibody/Antigen Screen w/Reflex to HIV 1/2 Differentiation PROCEDURE ONCE Final result BONIFACIO JACOBSONA P 04/19/25 0043 Drug abuse screen STAT Final result BONIFACIO JACOBSONA P 04/19/25 0043 Insert peripheral IV Once Acknowledged JULIA JACOBSON P 04/19/[address] Head wo IV Contrast Once Final result BONIFACIO JACOBSONA P 04/19/25 0043 CMP STAT Final result BONIFACIO JACOBSONA P 04/19/25 0043 CBC w/diff STAT Final result BONIFACIO JACOBSONA P 04/19/25 0043 Blood gas panel, venous STAT Final result BONIFACIO JACOBSONA P 04/19/25 0043 Ethyl Alcohol Plasma STAT Final result BONIFACIO JACOBSONA P 04/18/[address] Knee Left wo IV Contrast Once Final result ARTURO ACUNA 04/18/25 2327 POCT glucose meter PROCEDURE ONCE Final result POCT, GENERIC PROVIDER 04/18/25 2256 Consult to Orthopaedic Surgery Once Comments: Distal Left Femoral fx- Transfer from [facility] Specialty: Orthopaedic Surgery Provider: (Not yet assigned) Completed JULIA JACOBSON P 04/18/25 2254 XR Tibia Fibula Left 2+ Views Once Final result JULIA JACOBSON P 04/18/25 2254 XR Knee Left 3 Views Once Final result JULIA JACOBSON P 04/18/25 2254 XR Hip Left 2 or 3 Views Including Pelvis Once Final result JULIA JACOBSON P 04/18/25 2254 XR Femur Left 2+ Views Once Final result JULIA JACOBSON Kei ED Course as of 04/19/25 0653 Sun Apr 18, [id number] Urinalysis negative for bacteria, urine drug screen positive for opioids CBC unremarkable BMP no actionable metabolic disturbances, alcohol level less than 10, [GG] 224 OSH- CT imaging outside hospitals reviewed CT cervical spine without contrast negative CT headwithout contrast negative, CT angio chest PE negative, CT abdomen and pelvis with contrast any acute findings CTA of neck without any acute findings CTA of head without any acute finding [GG] 2248 Left knee comminuted complete transfers fracture of the distal left femoral metaphysis- transferred to for trauma, fall. [GG] Mon Apr 19, 2025 0122 Re-evaluated patient at bedside, she will open her eyes, oriented to self, she is moving all extremities, however, no improvements to mental status, despite Narcan administration. Will repeat CThead w/o contrast. [GG] 0210 CT Head wo IV Contrast No acute intracranial abnormality. No evidence of acute hemorrhage or ischemia. No mass, mass effect, or midline displacement of structures. Normal ventricular size and configuration. Patent basal cisterns. No displaced or depressed calvarial fractures. The visualized paranasal sinuses and mastoid air cells are clear. IMPRESSION: No acute intracranial abnormality. [GG] 0210 Mildly displaced periprosthetic fracture through the distal diaphysis of the femur with overlying soft tissue swelling and small suprapatellar effusion. [GG] 0211 XR Tibia Fibula Left 2+ Views No acute fracture the tib-fib. [GG] 0211 XR Femur Left 2+ Views [GG] 0212 XR Hip Left 2 or 3 Views Including Pelvis Limited evaluation of the sacrum secondary to overlying bowel gas and stool. No acute pelvic fractures are identified. [GG] 0233 Acetaminophen(!): <5.0 [GG] 0233 Troponin T, High Sensitivity, 0 Hour: 8 [GG] 0233 TSH: 3.08 [GG] 0233 Ethanol Plasma: <10 [GG] 0310 Blood, Urine: Negative [GG] 0310 Leukocytes, Urine: Negative [GG] 0310 Nitrite, Urine: Negative [GG] 0310 Salicylate, Quantitative, Plasma: <1.0 [GG] 0322 Trauma paged [GG] [phone] Consulted Trauma to discuss admissions, patient is transferred from OSH to ER for traumaticfall resulting in Left periprosthetic distal femur fracture, no acute operative intervention by ortho, patient will require admission given AMS. [GG] 0540 CT Femur Left wo IV Contrast Redemonstrated comminuted and mildly displaced periprosthetic fracture involving the distal left femur, better evaluated on the CT knee performed earlier same day given streak artifact on the currentexam. Intact proximal femur. [GG] ED Course User Index [GG] Julia Jacobson APRN Clinical Impressions as of 04/19/25 0653 Altered mental status, unspecified altered mental status type 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, initial encounter Fall, initial encounter Polypharmacy Social Determinates of Health Risks (including Economic Stability, Education and level of understanding, Healthcare access and quality and concerning social factors): Acute or chronic drug and alcohol use Ultimately, this patient was Was admitted (Admission) The primary encounter diagnosis was Altered mental status, unspecified altered mental status type. Diagnoses of 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, initial encounter and Fall, initial encounter were also pertinent to this visit.. Patient believed to require admission for the listed diagnoses. The Trauma Surgery service was consulted for admission and was agreeable to admit to Acute Floor (Med/Surg). ED Prescriptions None Disposition Admit Requested Location: [facility] [[id number]] - [1] Past Medical History: Diagnosis Date Body mass index (bmi) 38.0-38.9, adult BMI 38.0-38.9,adult Cough Cough Personal history of other diseases of the respiratory system History of bronchitis Personal history of other specified conditions History of nausea [2] Past Surgical History: Procedure Laterality Date CATH STENT PLACEMENT/ CATH PLACEMENT OF STENT N/A Cath Stent Placement from [facility] CHOLECYSTECTOMY N/A Cholecystectomy from [facility] GASTRIC BYPASS N/A Gastric Surgery from [facility] HYSTERECTOMY N/A Hysterectomy from [facility] TUBAL LIGATION N/A Tubal Ligation from [facility] [3] Family History Problem Relation Name Age of Onset Bone cancer Other Bone cancer Other Alcohol abuse Other Conversions - Other Father FH: cataracts Conversions - Other Maternal Grandmother FH: cataracts Conversions - Other Other cardiovascular disease Conversions - Other Other cardiovascular disease Diabetes Other Emphysema Other Hyperlipidemia Other Hypertension Other Conversions - Other Other FH: cataracts Conversions - Other Other FH: cataracts Conversions - Other Other Lymph node cancer [4] Tobacco Use Smoking status: Never [5] Allergies Allergen Reactions Milk (Cow) Nausea Julia Jacobson APRN 04/19/25 0653 Cosigned by Yousif Anderson DO at 04/22/2025 10:06 AM EST Associated attestation - Yousif Anderson DO - 04/22/2025 10:06 AM EST I attest to being involved in providing substantive part of the medical decision making in patient care. * ED Triage Notes - Sean Recinos RN - 04/18/2025 10:10 PM EST Pt arrives via EMS from OSH for Left femur fracture after stepping in pothole and falling on 04/17. Pt initially arrived to OSH as SA with LKN 1100 04/17 due to slurred speech, AMS. 2 mg narcan given at OSH with improved symptoms. Reports having taken too many of my norcos because my leg was hurting VP RESPIRATORY at OSH. GCS 14 on arrival. LOC/BT+ (plavix) documented in this encounter Plan of Treatment Upcoming Encounters Date Type Department Care Team (Late st Contact Info) Description 06/21/2025 9:30 AM EST Appointment [facility] Radiology [address], [address] [place] [address] 06/21/2025 10:10 AM EST Office Visit [facility] Orthopaedic Surgery & Sports Medicine [address] [place] [address] Wai Motley MD [address] [place] [address] Pending Results Name Type Priority Associated Diagnoses Date /Time Prepare Leukocyte Reduced RBC: 2 Units, Leukocyte reduced (CMV reduced risk) Blood Bank Routine 04/19/2025 11:42 AM EST Scheduled Referrals Name Type Priority Associated Diagnoses Order Schedule Discharge Ambulatory referral to [facility] Outpatient Referral Routine Altered mental status, unspecified altered mental status type Fall, initial encounter 1 Occurrences starting 04/24/2025 until 10/26/2026 Discharge Ambulatory referral to [facility] Physical Therapy Outpatient Referral Routine 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, initial encounter 1 Occurrences starting 04/26/2025 until 10/28/2026 Discharge Ambulatory referral to [facility] Occupational Therapy Outpatient Referral Routine 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, initial encounter 1 Occurrences starting 04/26/2025 until 10/28/2026 documented as of this encounter Procedures Procedure Name Priority Date/Time Associated Diagnosis Comments HEMOGLOBIN AND HEMATOCRIT, BLOOD Routine 04/26/2025 7:29 AM EST HEMOGLOBIN AND HEMATOCRIT, BLOOD Routine 04/25/2025 1:37 PM EST TRANSFUSE RED BLOOD CELLS Routine 04/25/2025 9:15 AM EST TYPE AND SCREEN Routine 04/25/2025 7:46 AM EST PREPARE RBC Routine 04/25/2025 7:34 AM EST EXTRA TUBE LIGHT GREEN TOP Routine 04/25/2025 5:35 AM EST EXTRA TUBES Routine 04/25/2025 5:35 AM EST HEMOGLOBIN AND HEMATOCRIT, BLOOD Routine 04/25/2025 5:35 AM EST HEMOGLOBIN AND HEMATOCRIT, BLOOD Routine 04/24/2025 5:20 AM EST MAGNESIUM, PLASMA Routine 04/24/2025 5:2 0 AM EST BASIC METABOLIC PANEL, PLASMA Routine 04/24/2025 5:20 AM EST CBC W/O DIFFERENTIAL Routine 04/22/2025 3:25 AM EST PHOSPHORUS, PLASMA Routine 04/22/2025 3: 25 AM EST MAGNESIUM, PLASMA Routine 04/22/2025 3:2 5 AM EST BASIC METABOLIC PANEL, PLASMA Routine 04/22/2025 3:25 AM EST XR KNEE LEFT 3 VIEWS Routine 04/21/2025 6:08 PM EST XR FEMUR LEFT 2+ VIEWS Routine 6:08 PM EST FL LESS THAN 1 HOUR (NON-REPORTABLE) Routine 04/21/2025 5:10 PM EST MI OPEN TX FEMORAL FRACTURE DISTAL MED/LAT CONDYLE 04/21/2025 2:23 PM EST 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, initial encounter Special Needs Supine, pancho, sterile traction avail, triangles avail, c-arm, ortho trauma tool box, ortho soft tissue, globus distal femur plates POCT GLUCOSE METER UNSOLICITED RESULTS Routine 04/21/2025 2:15 PM EST METHICILLIN RESISTANT STAPHYLOCOCCUS AUREUS (MRSA) BY PCR Routine 04/21/2025 12:57 PM EST ECHO, ADULT TRANSTHORACIC LIMITED Routine 04/21/2025 10:51 AM EST ECHO, ADULT TRANSTHORACIC COMPLETE Routine 04/20/2025 8:00 AM EST PROTHROMBIN TIME(PT) / INR STAT 04/20/2025 1:48 AM EST CBC W/O DIFFERENTIAL STAT 04/20/2025 1:48 AM EST BASIC METABOLIC PANEL, PLASMA STAT 04/20/2025 1:48 AM EST BONE SPECIFIC ALKALINE PHOSPHATASE Routine 04/19/2025 2:38 PM EST TOTAL PROTEIN, SERUM Routine 04/19/2025 2:38 PM EST PROTEIN ELECTROPHORESIS, SERUM Routine 04/19/2025 2:38 PM EST PROTEIN ELECTROPHORESIS, PATHOLOGIST INTERPRETATION Routine 04/19/2025 2:38 PM EST IONIZED CALCIUM, SERUM Routine 2:38 PM EST PTH PANEL 1 Routine 04/19/2025 2:38 PM EST VITAMIN D 25 HYDROXY Routine 04/19/2025 2:38 PM EST PROTEIN ELECTROPHORESIS, SERUM Routine 04/19/2025 2:38 PM EST PHOSPHORUS, PLASMA Routine 04/19/2025 2: 38 PM EST PTH INTACT TOTAL Routine 04/19/2025 2:38 PM EST MAGNESIUM, PLASMA Routine 04/19/2025 2:3 8 PM EST LDL CHOLESTEROL DIRECT Add-On 2:38 PM EST HEMOGLOBIN A1C Routine 04/19/2025 2:38 PM EST VITAMIN B12, SERUM Routine 04/19/2025 2: 38 PM EST COMPREHENSIVE METABOLIC PANEL, PLASMA Routine 04/19/2025 2:38 PM EST PREPARE RBC Routine 04/19/2025 11:42 AM EST TROPONIN T, HIGH SENSITIVITY, 2 HOUR, PLASMA Timed 04/19/2025 4:[address] FEMUR LEFT WO IV CONTRAST STAT 04/19/2025 3:23 AM EST TYPE AND SCREEN STAT 04/19/2025 2:53 AM EST OPIATES, LCMSMS, URINE STAT 2:47 AM EST DRUG ABUSE SCREEN, URINE STAT 04/19/2025 2:47 AM EST URINALYSIS WITH REFLEX MICROSCOPIC STAT 04/19/2025 2:47 AM EST TROPONIN T, HIGH SENSITIVITY, 0 HOUR, PLASMA, REFLEX TO 2 HOUR STAT 04/19/2025 1:41 AM EST PROTHROMBIN TIME(PT) / INR STAT 04/19/2025 1:41 AM EST ANTI XA LEVEL UNFRACTIONATED HEPARIN STAT 04/19/2025 1:41 AM EST ECG ADULT STAT 04/19/2025 1:[address] KNEE LEFT WO IV CONTRAST STAT 04/19/2025 1:[address] HEAD WO IV CONTRAST STAT 1:25 AM EST ED HIV 1/2 ANTIBODY/ANTIGEN SCREEN WITH REFLEX TO HIV I/II DIFFERENTIATION STAT 04/19/2025 12:51 AM EST ED PROTOCOL HIV 1/2 ANTIBODY/ANTIGEN SCREEN W/REFLEX TO HIV 1/2 ANTIBODY DIFFERENTIATION STAT 04/19/2025 12:51 AM EST ETHYL ALCOHOL PLASMA STAT 04/19/2025 12:51 AM EST ACETAMINOPHEN, QUANTATATIVE, PLASMA STAT Add-on 04/19/2025 12:51 AM EST HEPATITIS C ANTIBODY - ED W/REFLEX TO HCV QUANT PCR STAT 04/19/2025 12:51 AM EST CBC WITH AUTO DIFFERENTIAL STAT 04/19/2025 12:51 AM EST TSH STAT Add-on 04/19/2025 12:51 AM EST FREE T4, PLASMA STAT Add-on 04/19/2025 12:51 AM EST BLOOD GAS PANEL, VENOUS STAT 04/19/2025 12:51 AM EST SALICYLATE, QUANTITATIVE, PLASMA STAT Add-on 04/19/2025 12:51 AM EST COMPREHENSIVE METABOLIC PANEL, PLASMA STAT 04/19/2025 12:51 AM EST XR TIBIA FIBULA LEFT 2+ VIEWS STAT 04/19/2025 12:16 AM EST XR KNEE LEFT 3 VIEWS STAT 04/19/2025 12:16 AM EST XR FEMUR LEFT 2+ VIEWS STAT 12:16 AM EST XR HIP LEFT 2 OR 3 VIEWS STAT 04/19/2025 12:16 AM EST POCT GLUCOSE METER UNSOLICITED RESULTS Routine 04/18/2025 11:27 PM EST documented in this encounter Results * (ABNORMAL) Hemoglobin and hematocrit, blood (04/26/2025 7:29 AM EST) HGB 7.9(L) 11.2 - 15.7 g/dL LAB HEMATOLOGY METHOD 04/26/2025 7:41 AM EST [facility] HCT 23.4(L) 34.0 - 45.0 % LAB HEMATOLOGY METHOD 04/26/2025 7:41 AM EST [facility] Blood Venous blood specimen / Unknown Venipuncture / Unknown 04/26/2025 7:29 AM EST 04/26/2025 7:33 AM EST Sandy Wilks PA LAB BLOOD ORDERABLES Final Result Performing Organization Address City/[facility]/[place] [address] * (ABNORMAL) Hemoglobin and Hematocrit, Blood (04/25/2025 1:37 PM EST) HGB 8.3(L) 11.2 - 15.7 g/dL LAB HEMATOLOGY METHOD 04/25/2025 1:58 PM EST [facility] HCT 24.7(L) 34.0 - 45.0 % LAB HEMATOLOGY METHOD 04/25/2025 1:58 PM EST [facility] Blood Venous blood specimen / Unknown Venipuncture / Unknown 04/25/2025 1:37 PM EST 04/25/2025 1:49 PM EST Maryjane Moore APRN LAB BLOOD ORDERABLES Final Re sult Performing Organization Address City/[facility]/[place] [address] * Transfuse RBC (04/25/2025 11:02 AM EST) Maryjane Moore APRN BLOOD TRANSFUSION ORDERABLES Final Result * Transfuse RBC: 1 Units (04/25/2025 11:02 AM EST) Maryjane Moore APRN BLOOD TRANSFUSION ORDERABLES Final Result * Type and screen (04/25/2025 7:46 AM EST) ABO/Rh O Positive 04/25/2025 7:50 AM EST [facility] BLOOD BANK Antibody Screen Negative 04/25/2025 7:50 AM EST [facility] BANK Specimen Expiration 04/28/2025 23:59 04/25/2025 7:50 AM EST [facility] B[facility] Blood Venous blood specimen / Unknown Venipuncture / Unknown 04/25/2025 7:46 AM EST 04/25/2025 7:50 AM EST Maryjane Moore APRN LAB BLOOD BANK TEST ORDERABLE S Final Result Performing Organization Address City/[facility]/ZIP Co de Phone Number BLOOD BANK [address] [place] [address], * Prepare Leukocyte Reduced RBC: 1 Units (04/25/2025 7:34 AM EST) Product Code [id number] CH BLOO D BANK Dispense Status Transfused BLOOD BANK Blood Expiration Date BLOOD BANK Unit Number [id number] CH B LOOD BANK Product Blood Type 5100 BLOOD BANK Blood Type O+ CH BLOOD BANK Crossmatch Compatible BLOOD BANK Other Maryjane Moore APRN BLOOD BANK PRODUCT ORDERABLES Final Result Performing Organization Address [facility] Co de Phone Number BLOOD BANK [address] [place] [address], * Light Green Top (04/25/2025 5:35 AM EST) Pathologist [facility] Extra Hold for add-ons 04/25/2025 8:01 AM EST [facility] Comment:Auto resulted. Blood Venous blood specimen / Unknown 04/25/2025 5:35 AM EST 04/25/2025 5:45 AM EST Bell Tang MD LAB BLOOD ORDERABLES Amy l Result Performing Organization Address City/[facility]/ZIP Co de Phone Number [facility] [address] [place] [address] * (ABNORMAL) Hemoglobin and Hematocrit, Blood (04/25/2025 5:35 AM EST) HGB 6.8(L) 11.2 - 15.7 g/dL LAB HEMATOLOGY METHOD 04/25/2025 5:58 AM EST [facility] HCT 20.1(L) 34.0 - 45.0 % LAB HEMATOLOGY METHOD 04/25/2025 5:58 AM EST [facility] Blood Venous blood specimen / Unknown Venipuncture / Unknown 04/25/2025 5:35 AM EST 04/25/2025 5:45 AM EST us Etta Bryant Jimenez PLANT MAINTENANCE TECHNICIAN LAB BLOOD ORDERABLES Final Re sult [facility] [address] [place] [address] * (ABNORMAL) Basic metabolic panel (04/24/2025 5:20 AM EST) Glucose, Plasma 120(H) 74 - 99 mg/dL 04/24/2025 5:55 AM EST [facility] BUN, Plasma 20 8 - 23 mg/dL 04/24/2025 5:55 AM EST [facility] Creatinine, Plasma 0.51(L) 0.60 - 1.10 mg/dL 04/24/2025 5:55 AM EST [facility] BUN/Creatinine Ratio 39 04/24/2025 5:55 AM EST [facility] Sodium, Plasma 136 136 - 145 mmol/L 04/24/2025 5:55 AM EST [facility] Potassium, Plasma 3.6 3.6 - 4.9 mmol/L 04/24/2025 5:55 AM EST [facility] Chloride, Plasma 103 97 - 107 mmol/L 04/24/2025 5:55 AM EST [facility] CO2, Plasma 25 22 - 29 mmol/L 04/24/2025 5:55 AM EST [facility] Anion Gap 8 6 - 16 mmol/L 04/24/2025 5:55 AM EST [facility] Total Calcium, Plasma 8.2(L) 8.9 - 10.2 mg/dL 04/24/2025 5:55 AM EST [facility] eGFRcr 105.0 mL/min/1.7 3m*2 04/24/2025 5:55 AM EST [facility] Comment:Reported eGFRcr in m L/min/1.73m2 is based the CKD-EPI 2020 equation that does not use a race coefficient. Blood Venous blood specimen / Unknown Venipuncture / Unknown 04/24/2025 5:20 AM EST 04/24/2025 5:26 AM EST us Etta Bryant Jimenez PLANT MAINTENANCE TECHNICIAN LAB BLOOD ORDERABLES Final Re sult [facility] [address] [place] [address] * (ABNORMAL) Magnesium (04/24/2025 5:20 AM EST) Magnesium, Plasma 1.7(L) 1.9 - 2.4 mg/dL 04/24/2025 5:55 AM EST [facility] Blood Venous blood specimen / Unknown Venipuncture / Unknown 04/24/2025 5:20 AM EST 04/24/2025 5:26 AM EST Etta Jimenez PLANT MAINTENANCE TECHNICIAN LAB BLOOD ORDERABLES Final Re sult Performing Organization Address City/[facility]/ZIP Co de Phone Number [facility] [address] [place] [address] * (ABNORMAL) Hemoglobin and Hematocrit, Blood (04/24/2025 5:20 AM EST) HGB 7.3(L) 11.2 - 15.7 g/dL LAB HEMATOLOGY METHOD 04/24/2025 5:33 AM EST [facility] HCT 21.4(L) 34.0 - 45.0 % LAB HEMATOLOGY METHOD 04/24/2025 5:33 AM EST [facility] Blood Venous blood specimen / Unknown Venipuncture / Unknown 04/24/2025 5:20 AM EST 04/24/2025 5:26 AM EST Etta Jimenez PLANT MAINTENANCE TECHNICIAN LAB BLOOD ORDERABLES Final Re sult [facility] [address] [place] [address] * Phosphorus, Plasma (04/22/2025 3:25 AM EST) Phosphorus, Plasma 3.6 2.5 - 4.5 mg/dL 04/22/2025 4:00 AM EST [facility] Blood Venous blood specimen / Unknown Venipuncture / Unknown 04/22/2025 3:25 AM EST 04/22/2025 3:31 AM EST María Toledo APRN LAB BLOOD ORDERABLES Final Result [facility] [address] [place] [address] * (ABNORMAL) Magnesium, Plasma (04/22/2025 3:25 AM EST) Magnesium, Plasma 1.4(L) 1.9 - 2.4 mg/dL 04/22/2025 4:00 AM EST [facility] Blood Venous blood specimen / Unknown Venipuncture / Unknown 04/22/2025 3:25 AM EST 04/22/2025 3:31 AM EST María Toledo APRN LAB BLOOD ORDERABLES Final Result Performing Organization Address City/[facility]/ZIP Co de Phone Number [facility] [address] [place] [address] * (ABNORMAL) Basic metabolic panel (04/22/2025 3:25 AM EST) Glucose, Plasma 136(H) 74 - 99 mg/dL 04/22/2025 4:00 AM EST [facility] BUN, Plasma 19 8 - 23 mg/dL 04/22/2025 4:00 AM EST [facility] Creatinine, Plasma 0.48(L) 0.60 - 1.10 mg/dL 04/22/2025 4:00 AM EST [facility] BUN/Creatinine Ratio 40 04/22/2025 4:00 AM EST [facility] Sodium, Plasma 135(L) 136 - 145 mmol/L 04/22/2025 4:00 AM EST [facility] Potassium, Plasma 4.2 3.6 - 4.9 mmol/L 04/22/2025 4:00 AM EST [facility] Chloride, Plasma 101 97 - 107 mmol/L 04/22/2025 4:00 AM EST [facility] CO2, Plasma 22 22 - 29 mmol/L 04/22/2025 4:00 AM EST [facility] Anion Gap 12 6 - 16 mmol/L 04/22/2025 4:00 AM EST [facility] Total Calcium, Plasma 8.2(L) 8.9 - 10.2 mg/dL 04/22/2025 4:00 AM EST [facility] eGFRcr 106.6 mL/min/1.7 3m*2 04/22/2025 4:00 AM EST [facility] Comment:Reported eGFRcr in m L/min/1.73m2 is based the CKD-EPI 2020 equation that does not use a race coefficient. Blood Venous blood specimen / Unknown Venipuncture / Unknown 04/22/2025 3:25 AM EST 04/22/2025 3:31 AM EST María Toledo APRN LAB BLOOD ORDERABLES Final Result [facility] [address] [place] [address] * (ABNORMAL) CBC W/O Differential (04/22/2025 3:25 AM EST) WBC Count 8.07 3.70 - 10.30 10*3/uL LAB HEMATOLOGY METHOD 04/22/2025 3:42 AM EST [facility] RBC Count 3.46(L) 3.90 - 5.20 10*6/uL LAB HEMATOLOGY METHOD 04/22/2025 3:42 AM EST [facility] HGB 10.4(L) 11.2 - 15.7 g/dL LAB HEMATOLOGY METHOD 04/22/2025 3:42 AM EST [facility] HCT 31.2(L) 34.0 - 45.0 % LAB HEMATOLOGY METHOD 04/22/2025 3:42 AM EST [facility] Platelet Count 224 155 - 369 10*3/uL LAB HEMATOLOGY METHOD 04/22/2025 3:42 AM EST [facility] MCV 90 79 - 98 fL LAB HEMATOLOGY METHOD 04/22/2025 3:42 AM EST [facility] MCH 30.1 26.0 - 32.0 pg LAB HEMATOLOGY METHOD 04/22/2025 3:42 AM EST [facility] MCHC 33.3 30.7 - 35.5 g/dL LAB HEMATOLOGY METHOD 04/22/2025 3:42 AM EST [facility] RDW 12.2 11.5 - 14.5 % LAB HEMATOLOGY METHOD 04/22/2025 3:42 AM EST [facility] MPV 9.0 8.8 - 12.5 fL LAB HEMATOLOGY METHOD 04/22/2025 3:42 AM EST [facility] nRBC 0.0 <=0.0 per 100 WBCs LAB HEMATOLOGY METHOD 04/22/2025 3:42 AM EST [facility] Blood Venous blood specimen / Unknown Venipuncture / Unknown 04/22/2025 3:25 AM EST 04/22/2025 3:31 AM EST us María Toledo PLANT MAINTENANCE TECHNICIAN LAB BLOOD ORDERABLES Final Result [facility] [address] [place] [address] * XR Knee Left 3 Views (04/21/2025 6:08 PM EST) Anatomical Region Laterality Modality Lower Extremities, Knee Left Digital Radiography Impressions 04/22/2025 6:36 AM EST Postsurgical changes as above described, without obvious hardware complications. CRITICAL RESULT: No. COMMUNICATION: Per this written report. Drafted by Poli Palacio MD on 04/22/2025 6:32 AM Final report signed by Poli Palacio MD on 04/22/2025 6:36 AM Narrative 04/22/2025 6:36 AM EST CLINICAL INDICATION: s/p ORIF TECHNIQUE: XR KNEE LEFT 3 VIEWS, XR FEMUR LEFT 2+ VIEWS COMPARISON: April 19, 2025 FINDINGS: Diffuse osteopenia Interval ORIF in the mid and distal femur. No hardware complications. There is expected soft tissue swelling and foci of gas formations. Redemonstration of total knee replacement and distal femoral periprosthetic fracture, with near anatomic alignment of the fracture. Moderate to large joint effusion in the knee. Unchanged degenerative changes in the hip. The rest of the findings are grossly unchanged. Procedure Note Poli Fontana MD - 04/22/2025 CLINICAL INDICATION: s/p ORIF TECHNIQUE: XR KNEE LEFT 3 VIEWS, XR FEMUR LEFT 2+ VIEWS COMPARISON: April 19, 2025 FINDINGS: Diffuse osteopenia Interval ORIF in the mid and distal femur. No hardware complications.There is expected soft tissue swelling and foci of gas formations. Redemonstration of total knee replacement and distal femoralperiprosthetic fracture, with near anatomic alignment of the fracture. Moderate to large joint effusion in the knee. Unchanged degenerative changes in the hip. The rest of the findings are grossly unchanged. IMPRESSION: Postsurgical changes as above described, without obvious hardwarecomplications. CRITICAL RESULT: No. COMMUNICATION: Per this written report. Drafted by Poli Palacio MD on 04/22/2025 6:32 AM Final report signed by Poli Palacio MD on 56:36 AM us Vikki Lucia MD IMG XR PROCEDURES Final Re sult * XR Femur Left 2+ Views (04/21/2025 6:08 PM EST) Anatomical Region Laterality Modality Lower Extremities, Femur Left Digital Radiography Impressions 04/22/2025 6:36 AM EST Postsurgical changes as above described, without obvious hardware complications. CRITICAL RESULT: No. COMMUNICATION: Per this written report. Drafted by Poli Palacio MD on 04/22/2025 6:32 AM Final report signed by Poli Palacio MD on 04/22/2025 6:36 AM Narrative 04/22/2025 6:36 AM EST CLINICAL INDICATION: s/p ORIF TECHNIQUE: XR KNEE LEFT 3 VIEWS, XR FEMUR LEFT 2+ VIEWS COMPARISON: April 19, 2025 FINDINGS: Diffuse osteopenia Interval ORIF in the mid and distal femur. No hardware complications. There is expected soft tissue swelling and foci of gas formations. Redemonstration of total knee replacement and distal femoral periprosthetic fracture, with near anatomic alignment of the fracture. Moderate to large joint effusion in the knee. Unchanged degenerative changes in the hip. The rest of the findings are grossly unchanged. Procedure Note Poli Fontana MD - 04/22/2025 CLINICAL INDICATION: s/p ORIF TECHNIQUE: XR KNEE LEFT 3 VIEWS, XR FEMUR LEFT 2+ VIEWS COMPARISON: April 19, 2025 FINDINGS: Diffuse osteopenia Interval ORIF in the mid and distal femur. No hardware complications.There is expected soft tissue swelling and foci of gas formations. Redemonstration of total knee replacement and distal femoralperiprosthetic fracture, with near anatomic alignment of the fracture. Moderate to large joint effusion in the knee. Unchanged degenerative changes in the hip. The rest of the findings are grossly unchanged. IMPRESSION: Postsurgical changes as above described, without obvious hardwarecomplications. CRITICAL RESULT: No. COMMUNICATION: Per this written report. Drafted by Poli Palacio MD on 04/22/2025 6:32 AM Final report signed by Poli Palacio MD on 56:36 AM Vikki Lucia MD IMG XR PROCEDURES Final Re sult * FL Less than 1 Hour Intraoperative (04/21/2025 5:10 PM EST) Narrative IMAGING - 04/21/2025 5:24 PM EST Images were obtained for surgical purposes. See Wai Motley's surgical note in the patient's chart for the findings. Wai Motley MD IMG FLUOROSCOPY PROCEDURES Fi nal Result IMAGING * POCT glucose meter (04/21/2025 2:15 PM EST) POCT Glucose 93 74 - 99 mg/dL 04/21/2025 2:17 PM EST [email or web address] Comment:Accuracy of a glucos e result obtained from a capillary whole blood specimen relies upon adequate, non-compromised capillary blood flow. If the capillary glucose result is not consistent with the patient's clinical signs and symptoms, glucose testing should be repeated with either an arterial or venous sample on the glucometer or sent to the main labortory for testing. Comment 04/21/2025 2:17 PM EST [email or web address] Alcoholism Worker ID Veronica [email or web address] 04/21/2025 2:17 PM EST [email or web address] Device ID [id number] 04/21/2025 2:17 PM EST [facility] Specimen Type POC Capillary 04/21/2025 2:17 PM EST [facility] Blood Capillary blood specimen / Unknown 04/21/2025 2:15 PM EST 04/21/2025 2:17 PM EST Vikki Lucia MD LAB POINT OF CARE TEST DOCKED DEVICE UNSOLICITED RESULTS Final Result Performing Organization Address City/[facility] Co de Phone Number [facility] [address] [place] [id number] * Methicillin Resistant Staphylococcus aureus (MRSA) by PCR (04/21/2025 12:57 PM EST) Methicillin Resistant Staphylococcus aureus (MRSA) by PCR Not Detected Not Detected 04/21/2025 3:35 PM EST [facility] Swab Both anterior nares / Unknown Non-blood Collection / Unknown 04/21/2025 12:57 PM EST 04/21/2025 1:34 PM EST Narrative [facility] - 04/21/2025 3:35 PM EST This test is FDA approved for use with nares swab specimens using the eSwabs. This test is used for clinical purposes. It should not be regarded as investigational or for research. This laboratory is certified under the Clinical Laboratory improvement Amendments of 1988 (CLIA-88 as qualified to perform high complexity clinical laboratory testing. Vikki Lucia MD LAB MICROBIOLOGY - GENERAL ORDERABLES Final Result Performing Organization Address City/[facility] Co de Phone Number [address] [address] * ECHO, ADULT TRANSTHORACIC LIMITED (04/21/2025 10:51 AM EST) BSA 1.61 m2 MAAME ISCV Height 160.0 MAAME ISCV Weight 58.5 MAAME ISCV Anatomical Region Laterality Modality Echocardiography Narrative 04/21/2025 11:25 AM EST Left Atrium: The interatrial septum is intact with no evidence for an atrial septal defect. Intravenous injection of agitated saline demonstrates no evidence of intracardiac or intrapulmonary shunt. Compared to the most recently available prior study, and allowing for differences in image quality and technique, there is no significant interval change noted. Left Atrium The interatrial septum is intact with no evidence for an atrial septal defect. Intravenous injection of agitated saline demonstrates no evidence of intracardiac or intrapulmonary shunt. Study Details A limited transthoracic echocardiogram using limited 2D imaging was performed. Saline (bubble) contrast was used during the study. Overall the study quality was adequate. Heart rate was normal. Height: 160.0 cm. Weight: 58.5 kg. BSA: 1.61 m2. The heart rhythm during this exam was most suggestive of a sinus rhythm. Study Recommendation Compared to the most recently available prior study, and allowing for differences in image quality and technique, there is no significant interval change noted. us Rupinder Villar APRN CV ECHO PROCEDURES Final Resul t * ECHO, ADULT TRANSTHORACIC COMPLETE (04/20/2025 8:00 AM EST) BSA 1.61 m2 MAAME ISCV Height 160.0 MAAME ISCV Weight 58.5 MAAME ISCV LVIDd 42 mm MAAME ISCV LVIDs 22 mm MAAME ISCV IVSd 7 mm MAAME ISCV LVPWd 9 mm MAAME ISCV LV MASS(C)D 101 g MAAME ISCV UK CV ECHO LV MASS INDEX 63 g/m2 MAAME ISCV LV RWT 0.38 mm MAAME ISCV LV EDV(MOD-4ch) 68 mL MAAME ISCV LV ESV(MOD4ch) 25 mL MAAME ISCV EF(MOD-sp4) 63 % MAAME ISCV LV EDV(MOD-2ch) 62 mL MAAME ISCV LV ESV(MOD2ch) 22 mL MAAME ISCV EF(MOD-sp2) 65 % MAAME ISCV EDV(MOD-bp) 65 mL MAAME ISCV ESV(MOD-bp) 24 mL MAAME ISCV EF(MOD-bp) 64 % MAAME ISCV LVOT diam 21 mm MAAME ISCV LVOT AREA 3.5 cm2 MAAME ISCV LV V1 VTI 17.9 cm MAAME ISCV SV(LVOT) 62 mL MAAME ISCV MV E Vmax 63.7 cm/s MAAME ISCV MV A Vmax 83.6 cm/s MAAME ISCV MV E/A 0.8 cm/s MAAME ISCV LA dimension 32 mm MAAME ISCV RV base 33 mm MAAME ISCV RV Mid 26 mm MAAME ISCV RV Length 61 mm MAAME ISCV RV s' German 22.0 cm/s MAAME ISCV TAPSE 25 mm MAAME ISCV PA acc time 90 msec MAAME ISCV mean PAP 39 mmHg MAAME ISCV LV V1 Vmax 98.4 cm/s MAAME ISCV Ao V2 VTI 22.3 cm MAAME ISCV Ao mean PG 3 mmHg MAAME ISCV Ao V2 Vmax 129.0 cm/s MAAME ISCV Ao max PG 7 mmHg MAAME ISCV AV VTI Index 0.80 MAAME ISCV JUDE(I,D) 2.8 cm2 MAAME ISCV JUDE(VTI)/BSA_ph l 1.7 cm2/m2 MAAME ISCV MV V2 VTI 15.8 cm MAAME ISCV MV MG 2 mmHg MAAME ISCV MV V2 max 88.2 cm/s MAAME ISCV MV max PG 3 mmHg MAAME ISCV MV dec slope 427 cm/s2 MAAME ISCV MV dec time 110 ms MAAME ISCV MV P1/2t 32 ms MAAME ISCV MVA(P1/2t) 6.9 cm2 MAAME ISCV Ao Root Diam 29 mm MAAME ISCV Asc Ao Diam 36 mm MAAME ISCV PA MI(ACCEL) 39.8 mmHg MAAME ISCV LV mean PG 2.0 mmHG MAAME ISCV LV V1 mean 61.7 cm/sec MAAME ISCV LV max PG 3.9 mmHg MAAME ISCV LVLs ap2 5.0 mm MAAME ISCV AV-pr VR 0.8 MAAME ISCV Ao V2 mean 83.7 cm/s MAAME ISCV LAV(MOD-4ch) 39 mL MAAME ISCV RA MOD 4Ch 24 mL MAAME ISCV SAPPHIRE 15 mL/m2 MAAME ISCV LAV(MOD-bp) Indexed 27 mL/m2 MAAME ISCV LAV(MOD-2ch) 47 mL MAAME ISCV LV Lat e' Velocity 12.3 cm/s MAAME ISCV LV Sept e' German 8.3 cm/s MAAME ISCV Lat E/e' 5.2 MAAME ISCV Sep E/e' 7.7 MAAME ISCV Avg E/e' 6.4 MAAME ISCV Anatomical Region Laterality Modality Echocardiography Narrative 04/20/2025 9:51 AM EST Left Ventricle: Based on the linear dimension and/or 2D volumes, the left ventricle is normal in size. There is normal left ventricular myocardial thickness and mass. The left ventricular systolic function is normal. The LVEF as measured by biplane volume is 64%. The diastolic function is normal. The left ventricular filling pressure is normal. No regional wall motion abnormalities are seen. Right Ventricle: The right ventricle is normal in size. The right ventricular systolic function is normal. The spectral Doppler envelope of TR is not adequate for calculating the right ventricular systolic pressure (RVSP). Based upon other 2D and Doppler features, the RVSP is probably normal or at most mildly elevated. All cardiac valves were reasonably well interrogated with 2D imaging and/or Doppler assessment and no significant valve regurgitation or stenosis is seen. Pericardium: No pericardial effusion. There is no recent study available for direct [id number] comparison. Left Ventricle Based on the linear dimension and/or 2D volumes, the left ventricle is normal in size. There is normal left ventricular myocardial thickness and mass. The left ventricular systolic function is normal. The LVEF as measured by biplane volume is 64%. The diastolic function is normal. The left ventricular filling pressure is normal. No regional wall motion abnormalities are seen. Right Ventricle The right ventricle is normal in size. The right ventricular systolic function is normal. The spectral Doppler envelope of TR is not adequate for calculating the right ventricular systolic pressure (RVSP). Based upon other 2D and Doppler features, the RVSP is probably normal or at most mildly elevated. Left Atrium The left atrial size is normal with an indexed volume of 16-34 mL/m2. The interatrial septum is intact with no evidence for an atrial septal defect. Right Atrium The right atrial volume index is normal (<30mL/m2). IVC/SVC Based on the IVC size and respiratory variation, the estimated right atrial pressure is 3mmHg. Mitral Valve The mitral valve leaflets are normal in appearance with no evidence of mitral valve prolapse. There is no mitral regurgitation. There is no mitral stenosis. Tricuspid Valve The tricuspid valve is normal in appearance. There is trace tricuspid regurgitation. There is no tricuspid stenosis. Aortic Valve The aortic valve appears to be trileaflet. There is no valvular regurgitation. There is no hemodynamically significant valvular aortic stenosis. Pulmonic Valve The pulmonic valve is normal in appearance. There is trace pulmonic regurgitation. There is no pulmonic stenosis. Pericardium No pericardial effusion. Great Vessels The aortic root is normal in size. The sinus of Valsalva (aortic root) diameter is 29 mm by leading edge to leading edge method. In the maximally visualized portion, the ascending aorta appears normal in size. The main pulmonary artery is not well visualized. Study Details A complete transthoracic echocardiogram using two-dimensional (2D), m-mode, color and spectral flow Doppler imaging was performed. During the study the apical, parasternal, subcostal and suprasternal view was captured. Overall the study quality was adequate. Heart rate was normal. Height: 160.0 cm. Weight: 58.5 kg. BSA: 1.61 m2. The heart rhythm during this exam was most suggestive of a sinus rhythm. Study Recommendation All cardiac valves were reasonably well interrogated with 2D imaging and/or Doppler assessment and no significant valve regurgitation or stenosis is seen. There is no recent study available for direct [id number] comparison. us Rupinder Villar APRN CV ECHO PROCEDURES Final Resul t * Prothrombin Time/INR (04/20/2025 1:48 AM EST) Prothrombin Time 13.7 12.0 - 14.3 sec LAB COAGULATION METHOD 04/20/2025 2:26 AM EST [facility] INR 1.0 0.9 - 1.1 LAB COAGULATION METHOD 04/20/2025 2:26 AM EST [facility] Blood Venous blood specimen / Unknown Venipuncture / Unknown 04/20/2025 1:48 AM EST 04/20/2025 1:56 AM EST Narrative [facility] - 04/20/2025 2:26 AM EST OPTIMAL INR RANGES FOR PATIENT ON ORAL ANTICOAGULANT THERAPY Prevention of venous thromboembolism INR 2.0 to 3.0 In patients with heart disease: Atrial fibrillation INR 2.0 to 3.0 Valvular heart disease INR 2.0 to 3.0 Tissue heart valves INR 2.0 to 3.0 Mechanical prosthetic valves INR 2.5 to 3.5 Prevention of recurrent CA INR 2.5 to 3.5 us Vikki Lucia MD LAB BLOOD ORDERABLES Final Result [facility] [address] [place] [address] * (ABNORMAL) Basic Metabolic Panel, Plasma (04/20/2025 1:48 AM EST) Glucose, Plasma 105(H) 74 - 99 mg/dL 04/20/2025 2:25 AM EST [facility] BUN, Plasma 12 8 - 23 mg/dL 04/20/2025 2:25 AM EST [facility] Creatinine, Plasma 0.55(L) 0.60 - 1.10 mg/dL 04/20/2025 2:25 AM EST [facility] BUN/Creatinine Ratio 22 04/20/2025 2:25 AM EST [facility] Sodium, Plasma 140 136 - 145 mmol/L 04/20/2025 2:25 AM EST [facility] Potassium, Plasma 3.4(L) 3.6 - 4.9 mmol/L 04/20/2025 2:25 AM EST [facility] Chloride, Plasma 107 97 - 107 mmol/L 04/20/2025 2:25 AM EST [facility] CO2, Plasma 25 22 - 29 mmol/L 04/20/2025 2:25 AM EST [facility] Anion Gap 8 6 - 16 mmol/L 04/20/2025 2:25 AM EST [facility] Total Calcium, Plasma 8.4(L) 8.9 - 10.2 mg/dL 04/20/2025 2:25 AM EST [facility] eGFRcr 103.1 mL/min/1.7 3m*2 04/20/2025 2:25 AM EST [facility] Comment:Reported eGFRcr in m L/min/1.73m2 is based the CKD-EPI 2020 equation that does not use a race coefficient. Blood Venous blood specimen / Unknown Venipuncture / Unknown 04/20/2025 1:48 AM EST 04/20/2025 1:56 AM EST us Vikki Lucia MD LAB BLOOD ORDERABLES Final Result [facility] [address] [place] [address] * (ABNORMAL) CBC W/O Differential (04/20/2025 1:48 AM EST) WBC Count 10.28 3.70 - 10.30 10*3/uL LAB HEMATOLOGY METHOD 04/20/2025 2:08 AM EST [facility] RBC Count 3.77(L) 3.90 - 5.20 10*6/uL LAB HEMATOLOGY METHOD 04/20/2025 2:08 AM EST [facility] HGB 11.9 11.2 - 15.7 g/dL LAB HEMATOLOGY METHOD 04/20/2025 2:08 AM EST [facility] HCT 33.8(L) 34.0 - 45.0 % LAB HEMATOLOGY METHOD 04/20/2025 2:08 AM EST [facility] Platelet Count 232 155 - 369 10*3/uL LAB HEMATOLOGY METHOD 04/20/2025 2:08 AM EST [facility] MCV 90 79 - 98 fL LAB HEMATOLOGY METHOD 04/20/2025 2:08 AM EST [facility] MCH 31.6 26.0 - 32.0 pg LAB HEMATOLOGY METHOD 04/20/2025 2:08 AM EST [facility] MCHC 35.2 30.7 - 35.5 g/dL LAB HEMATOLOGY METHOD 04/20/2025 2:08 AM EST [facility] RDW 12.4 11.5 - 14.5 % LAB HEMATOLOGY METHOD 04/20/2025 2:08 AM EST [facility] MPV 9.1 8.8 - 12.5 fL LAB HEMATOLOGY METHOD 04/20/2025 2:08 AM EST [facility] nRBC 0.0 <=0.0 per 100 WBCs LAB HEMATOLOGY METHOD 04/20/2025 2:08 AM EST [facility] Blood Venous blood specimen / Unknown Venipuncture / Unknown 04/20/2025 1:48 AM EST 04/20/2025 1:56 AM EST us Vikki Lucia MD LAB BLOOD ORDERABLES Final Result [facility] [address] [place] [address] * Protein electrophoresis serum, pathologist interpretation (04/19/2025 2:38 PM EST) Clinical Diagnosis, SPEP Pathologic fracture ISO osteoporosis 04/20/2025 2:44 PM EST [facility] Interpretation , SPEP The protein electrophoresis pattern reveals a low albumin concentration. The low total protein and albumin might suggest albumin loss (renal or GI loss; formation of exudates or edema), or deficient albumin synthesis (malnutrition; malabsorption). A resident was involved in the service. I attest I examined the relevant preparations for the specimens and confirmed the diagnosis or interpretation. 04/20/2025 2:44 PM EST [facility] Pathologist Signature, SPEP Reviewed by: Randy Torres MD 04/20/2025 2:44 PM EST [facility] LAB CP ASR DISCLAIMER Yes 04/20/2025 2:44 PM EST [facility] Blood Venous blood specimen / Unknown Venipuncture / Unknown 04/19/2025 2:38 PM EST 04/19/2025 3:14 PM EST us Rupinder Villar APRN LAB PATHOLOGY ORDERABLES Final Result Performing Organization Address City/[facility]/ZIP Co de Phone Number [facility] [address] [place] [address] * LDL cholesterol, direct (04/19/2025 2:38 PM EST) Direct LDL Cholesterol 38 <100 mg/dL 04/20/2025 1:47 AM EST [facility] Comment: LDL Cholesterol reference range (age >17 years): Optimal: <100 mg/dL Near or above optimal: 100 to 129 mg/dL Borderline high: 130 to 159 mg/dL High: 160 to 189 mg/dL Very high: >189 mg/dL Fasting greater than or equal to 8 hours? unknown 04/20/2025 1:47 AM EST [facility] Blood Venous blood specimen / Unknown Venipuncture / Unknown 04/19/2025 2:38 PM EST 04/19/2025 2:47 PM EST us Vikki Lucia MD LAB BLOOD ORDERABLES Final Result Performing Organization Address [facility]/ZIP Co de Phone Number [facility] [address] [place] [address] * Vitamin B12 (04/19/2025 2:38 PM EST) Vitamin B12, Serum 573 210 - 1,033 pg/mL 04/19/2025 3:58 PM EST [facility] Blood Venous blood specimen / Unknown Venipuncture / Unknown 04/19/2025 2:38 PM EST 04/19/2025 3:14 PM EST Rupinder Villar PLANT MAINTENANCE TECHNICIAN LAB BLOOD ORDERABLES Final Res ult [facility] [address] [place] [address] * Hemoglobin A1c (04/19/2025 2:38 PM EST) Hemoglobin A1c 5.3 <5.7 % 04/19/2025 7:47 PM EST [facility] Blood Venous blood specimen / Unknown Venipuncture / Unknown 04/19/2025 2:38 PM EST 04/19/2025 3:16 PM EST Narrative [facility] - 04/19/2025 7:47 PM EST [facility] Interpretive Data: Diagnosis of Diabetes: Diabetic > or = 6.5% Pre-diabetic 5.7 to 6.4% Non-diabetic < or = 5.6% Glycemic Targets for Type I and Type II Diabetics: Non- Adults <7.0% Adults <6.0% Children and Adolescents <7.5% Source: [place] [employer]. Standards of medical care in diabetes,2017. Diabetes Care.2017:40 (suppl 1):S1-S135. Rupinder Valdez Jian PLANT MAINTENANCE TECHNICIAN LAB BLOOD ORDERABLES Final Res ult Performing Organization Address City/[facility]/ZIP Co de Phone Number [facility] [address] [place] [address] * (ABNORMAL) Total Protein, Serum (04/19/2025 2:38 PM EST) Total Protein 5.7(L) 6.2 - 7.7 g/dL 04/19/2025 3:43 PM EST [facility] Blood Venous blood specimen / Unknown Venipuncture / Unknown 04/19/2025 2:38 PM EST 04/19/2025 3:14 PM EST us Rupinder Villar APRN LAB BLOOD ORDERABLES Final Res ult Performing Organization Address [facility] Co de Phone Number [facility] [address] [place] [address] * (ABNORMAL) Protein Electrophoresis, Serum (04/19/2025 2:38 PM EST) Albumin Electrophoresis, Serum 3.4(L) 3.6 - 4.7 g/dL 04/20/2025 4:04 AM EST [facility] Alpha 1 Globulin Electrophoresis, Serum 0.3 0.2 - 0.4 g/dL 04/20/2025 4:04 AM EST [facility] Alpha 2 Globulin Electrophoresis, Serum 0.7 0.5 - 0.9 g/dL 04/20/2025 4:04 AM EST [facility] Beta 1 Globulin Electrophoresis, Serum 0.4 0.3 - 0.5 g/dL 04/20/2025 4:04 AM EST [facility] Beta 2 Globulin Electrophoresis, Serum 0.3 0.2 - 0.5 g/dL 04/20/2025 4:04 AM EST [facility] Gamma Globulin Electrophoresis, Serum 0.6 0.6 - 1.5 g/dL 04/20/2025 4:04 AM EST [facility] Interpretation, Serum Protein Electrophoresis Pathology report to follow. 04/20/2025 4:04 AM EST [facility] Blood Venous blood specimen / Unknown Venipuncture / Unknown 04/19/2025 2:38 PM EST 04/19/2025 3:14 PM EST us Rupinder Villar APRN LAB BLOOD ORDERABLES Final Res ult Performing Organization Address City/[facility]/ZIP Co de Phone Number [facility] [address] [place] [address] * Ionized calcium, serum (04/19/2025 2:38 PM EST) Ionized Calcium, Serum 4.9 4.6 - 5.3 mg/dL LAB HEMATOLOGY METHOD 04/19/2025 4:10 PM EST [facility] Blood Venous blood specimen / Unknown Venipuncture / Unknown 04/19/2025 2:38 PM EST 04/19/2025 3:14 PM EST us Rupinder Villar PLANT MAINTENANCE TECHNICIAN LAB BLOOD ORDERABLES Final Res ult Performing Organization Address City/[facility]/ZIP Co de Phone Number [facility] [address] [place] [address] * PTH Intact Total (04/19/2025 2:38 PM EST) PTH Intact Total 72 9 - 77 pg/mL 04/19/2025 4:53 PM EST [facility] Blood Venous blood specimen / Unknown Venipuncture / Unknown 04/19/2025 2:38 PM EST 04/19/2025 3:19 PM EST Narrative [facility] - 04/19/2025 4:53 PM EST Assay performed by immunoassay at the [facility]. Performed on [employer] chemiluminescent immunoassay, tractable to the World Health Organization's first international standard for PTH from the [facility], Code 79/500. Results obtained from different test methods or kits cannot be used interchangeably. us Rupinder Valdez Jian GARCIAN LAB BLOOD ORDERABLES Final Res ult Performing Organization Address [facility] Co de Phone Number [facility] [address] [place] [address] * Magnesium, Plasma (04/19/2025 2:38 PM EST) Magnesium, Plasma 2.0 1.9 - 2.4 mg/dL 04/19/2025 3:15 PM EST [facility] Blood Venous blood specimen / Unknown Venipuncture / Unknown 04/19/2025 2:38 PM EST 04/19/2025 2:47 PM EST us Rupinder Villar PLANT MAINTENANCE TECHNICIAN LAB BLOOD ORDERABLES Final Res ult Performing Organization Address City/[facility]/ZIP Co de Phone Number [facility] [address] [place] [address] * Phosphorus, Plasma (04/19/2025 2:38 PM EST) Phosphorus, Plasma 3.3 2.5 - 4.5 mg/dL 04/19/2025 3:15 PM EST [facility] Blood Venous blood specimen / Unknown Venipuncture / Unknown 04/19/2025 2:38 PM EST 04/19/2025 2:47 PM EST us Rupinder Villar APRN LAB BLOOD ORDERABLES Final Res ult [facility] [address] [place] [address] * (ABNORMAL) Comprehensive Metabolic Panel, Plasma (04/19/2025 2:38 PM EST) Glucose, Plasma 104(H) 74 - 99 mg/dL 04/19/2025 3:15 PM EST [facility] BUN, Plasma 10 8 - 23 mg/dL 04/19/2025 3:15 PM EST [facility] Creatinine, Plasma 0.66 0.60 - 1.10 mg/dL 04/19/2025 3:15 PM EST [facility] BUN/Creatinine Ratio 15 04/19/2025 3:15 PM EST [facility] Sodium, Plasma 141 136 - 145 mmol/L 04/19/2025 3:15 PM EST [facility] Potassium, Plasma 3.5(L) 3.6 - 4.9 mmol/L 04/19/2025 3:15 PM EST [facility] Chloride, Plasma 105 97 - 107 mmol/L 04/19/2025 3:15 PM EST [facility] CO2, Plasma 27 22 - 29 mmol/L 04/19/2025 3:15 PM EST [facility] Anion Gap 9 6 - 16 mmol/L 04/19/2025 3:15 PM EST [facility] Total Calcium, Plasma 9.0 8.9 - 10.2 mg/dL 04/19/2025 3:15 PM EST [facility] Total Protein 6.0(L) 6.3 - 7.9 g/dL 04/19/2025 3:15 PM EST [facility] Albumin, Plasma 3.8 3.5 - 5.2 g/dL 04/19/2025 3:15 PM EST [facility] AST, Plasma 23 10 - 35 U/L 04/19/2025 3:15 PM EST [facility] ALT, Plasma 25 10 - 35 U/L 04/19/2025 3:15 PM EST [facility] Alkaline Phosphatase, Plasma 108 46 - 142 U/L 04/19/2025 3:15 PM EST [facility] Total Bilirubin, Plasma 0.4 0.2 - 1.1 mg/dL 04/19/2025 3:15 PM EST [facility] eGFRcr 98.7 mL/min/1.7 3m*2 04/19/2025 3:15 PM EST [facility] Comment:Reported eGFRcr in m L/min/1.73m2 is based the CKD-EPI 2020 equation that does not use a race coefficient. Blood Venous blood specimen / Unknown Venipuncture / Unknown 04/19/2025 2:38 PM EST 04/19/2025 2:47 PM EST us Rupinder Villar APRN LAB BLOOD ORDERABLES Final Res ult [facility] [address] [place] [address] * Bone Specific Alkaline Phosphatase (04/19/2025 2:38 PM EST) Bone Specific Alkaline Phosphatase 13.3 ug/L 04/19/2025 4:58 PM EST [facility] Comment: BSAP (Ostase) Reference Values, Female, age 18 years and up: Premenopausal: 4.5 to 16.9 ug/L Postmenopausal: 7.0 to 22.4 ug/L Blood Venous blood specimen / Unknown Venipuncture / Unknown 04/19/2025 2:38 PM EST 04/19/2025 3:14 PM EST us Rupinder Villar APRN LAB REF LAB BLOOD AND FLUID OR D Final Result [facility] [address] [place] [address] * Vitamin D 25 hydroxy (04/19/2025 2:38 PM EST) Vitamin D 25 Hydroxy 24.7 20.0 - 80.0 ng/mL 04/19/2025 5:10 PM EST [facility] Blood Venous blood specimen / Unknown Venipuncture / Unknown 04/19/2025 2:38 PM EST 04/19/2025 3:15 PM EST Narrative [facility] - 04/19/2025 5:10 PM EST Testing performed on [employer], standardized against NIST SRM 2972. When testing samples from patients whose predominant form of vitamin D is vitamin D2, such as patients receiving vitamin D2 supplementation, results that are subtherapeutic should be confirmed with another method, such as LC-MS/MS, before being used for patient management. Vitamin D, 25-Hydroxy reference range, age 18 years and up: Deficiency: <12 ng/mL Insufficiency: 12 to 19 ng/mL Sufficiency: 20 to 80 ng/mL Possible toxicity: >100 ng/mL us Rupinder Villar APRN LAB BLOOD ORDERABLES Final Res ult Performing Organization Address [facility] Co de Phone Number [facility] [address] [place] [address] * Troponin T, High Sensitivity, 2 Hour, Plasma (04/19/2025 4:28 AM EST) Troponin T, High Sensitivity, 2 Hour 8 <14 ng/L 04/19/2025 5:17 AM EST [facility] Blood Venous blood specimen / Unknown Venipuncture / Unknown 04/19/2025 4:28 AM EST 04/19/2025 4:47 AM EST us Yousif Anderson DO LAB BLOOD ORDERABLES Final R esult Performing Organization Address City/[facility]/ZIP Co de Phone Number [facility] [address] [place] [address] * CT Femur Left wo IV Contrast (04/19/2025 3:23 AM EST) Anatomical Region Laterality Modality Lower Extremities, Femur Left Compute d Tomography Impressions 04/19/2025 4:24 AM EST Redemonstrated comminuted and mildly displaced periprosthetic fracture involving the distal left femur, better evaluated on the CT knee performed earlier same day given streak artifact on the current exam. Intact proximal femur. CRITICAL RESULT: No. COMMUNICATION: Per this written report. Preliminary report signed by Olimpia Izaguirre MD on 04/19/2025 4:05 AM By electronically signing this report, I, the attending physician, attest that I have personally reviewed the images/data for the above examination(s) and agree with the final edited report. Drafted by Olimpia Izaguirre MD on 04/19/2025 3:53 AM Final report signed by Dennis Ibrahim MD on 04/19/2025 4:24 AM Narrative 04/19/2025 4:24 AM EST CLINICAL INDICATION: fx TECHNIQUE: Multiple axial CT images of the left femur were obtained without contrast administration. Reformatted images in the coronal and/or sagittal plane(s) were generated from the axial data set to facilitate diagnostic accuracy and/or surgical planning. Total DLP (Dose-Length Product): 174.59 mGy.cm. Please note: The reported value represents the total of one or more individual components during the CT acquisition on this date and at this time, and as such, the same value may appear in more than one CT report depending on the interpreting/reporting physicians. COMPARISON: CT left knee performed earlier same day Left femur radiographs 04/18/2025 FINDINGS: The proximal femur is intact. The femoroacetabular joint is well approximated. Redemonstration of comminuted and mildly displaced periprosthetic fracture involving the distal femoral diaphysis and lateral condyle. There is limited evaluation of the distal femur and knee given streak artifact. Soft tissue swelling of the distal femur. Procedure Note Dennis Ibrahim MD - 04/19/2025 CLINICAL INDICATION: fx TECHNIQUE: Multiple axial CT images of the left femur were obtained without contrastadministration. Reformatted images in the coronal and/or sagittal plane(s)were generated from the axial data set to facilitate diagnostic accuracyand/or surgical planning. Total DLP (Dose-Length Product): 174.59 mGy.cm. Please note: The reportedvalue represents the total of one or more individual components during theCT acquisition on this date and at this time, and as such, the same valuemay appear in more than one CT report depending on theinterpreting/reporting physicians. COMPARISON: CT left knee performed earlier same day Left femur radiographs 04/18/2025 FINDINGS: The proximal femur is intact. The femoroacetabular joint is wellapproximated. Redemonstration of comminuted and mildly displacedperiprosthetic fracture involving the distal femoral diaphysis and lateralcondyle. There is limited evaluation of the distal femur and knee givenstreak artifact. Soft tissue swelling of the distal femur. IMPRESSION: Redemonstrated comminuted and mildly displaced periprosthetic fractureinvolving the distal left femur, better evaluated on the CT knee performedearlier same day given streak artifact on the current exam. Intact proximal femur. CRITICAL RESULT: No. COMMUNICATION: Per this written report. Preliminary report signed by Olimpia Izaguirre MD on 04/19/2025 4:05 AM By electronically signing this report, I, the attending physician, attestthat I have personally reviewed the images/data for the aboveexamination(s) and agree with the final edited report. Drafted by Olimpia Izaguirre MD on 04/19/2025 3:53 AM Final report signed by Dennis Ibrahim MD on 04/19/2025 4:24 AM Graciela Chauhan MD IMG CT PROCEDURES Final R esult * Type and screen (04/19/2025 2:53 AM EST) ABO/Rh O Positive 04/19/2025 2:57 AM EST [facility] Antibody Screen Negative 04/19/2025 2:57 AM EST [facility] Specimen Expiration 04/22/2025 23:59 04/19/2025 2:57 AM [facility] Blood Venous blood specimen / Unknown Venipuncture / Unknown 04/19/2025 2:53 AM EST 04/19/2025 2:57 AM EST Yousif Anderson DO LAB BLOOD BANK TEST ORDERABL ES Final Result [facility] [address] [place] [address], * (ABNORMAL) Opiates Confirm Urine (04/19/2025 2:47 AM EST) Codeine <50 <50 ng/mL 04/22/2025 4:18 AM EST [facility] Codeine Glucuronide <50 <50 ng/mL 04/22/2025 4:18 AM EST [facility] Desmethyl Tramadol <50 <50 ng/mL 04/22/2025 4:18 AM EST [facility] EDDP - Methadone Metabolite <50 <50 ng/mL 04/22/2025 4:18 AM [facility] Hydrocodone 302(H) <50 ng/mL 04/22/2025 4:18 AM EST [facility] Hydromorphone <50 <50 ng/mL 04/22/2025 4:18 AM [facility] Hydromorphone Glucuronide 357(H) <50 ng/mL 04/22/2025 4:18 AM EST [facility] Comment:Metabolite of Hydrom orphone Meperidine <50 <50 ng/mL 04/22/2025 4:18 AM [facility] Methadone <50 <50 ng/mL 04/22/2025 4:18 AM [facility] 6 Monoacetyl morphine <10 <10 ng/mL 04/22/2025 4:18 AM [facility] Morphine <50 <50 ng/mL 04/22/2025 4:18 AM [facility] Morphine Glucuronide <50 <50 ng/mL 04/22/2025 4:18 AM [facility] Comment:Metabolite of Morphi ne Naloxone <50 <50 ng/mL 04/22/2025 4:18 AM [facility] Naloxone Glucuronide >1,000(H) <50 ng/mL 04/22/2025 4:18 AM [facility] Comment:Metabolite of Naloxo ne Normeperidine <50 <50 ng/mL 04/22/2025 4:18 AM EST [facility] Tramadol <50 <50 ng/mL 04/22/2025 4:18 AM EST [facility] Urine Urine specimen obtained by clean catch procedure / Unknown Non-blood Collection / Unknown 04/19/2025 2:47 AM EST 04/19/2025 3:04 AM EST Narrative [facility] - 04/22/2025 4:18 AM EST Drug analysis is confirmed by LC-MS/MS (LC Tandem Mass Spectrometry) on Urine specimens. This test was developed and its performance characteristics determined by [facility]. It has not been cleared or approved by the FDA. The laboratory is regulated under CLIA as qualified to perform high-complexity testing. This test is used for clinical purposes. Testing is performed at the [facility], [facility]. Julia Jacobson APRN LAB URINE ORDERABLES Final Result [facility] [address] [place] [address] * (ABNORMAL) Urinalysis with reflex microscopic (Culture NOT Included) (04/19/2025 2:47 AM EST) Color, Urine Yellow LAB URINALYSIS - AUTOMATED METHOD 04/19/2025 3:00 AM EST [facility] Clarity, Urine Clear LAB URINALYSIS - AUTOMATED METHOD 04/19/2025 3:00 AM EST [facility] Spec [place], Urine >1.030(H) 1.005 - 1.030 LAB URINALYSIS - AUTOMATED METHOD 04/19/2025 3:00 AM EST [facility] pH, Urine 7.5 5.0 - 8.0 LAB URINALYSIS - AUTOMATED METHOD 04/19/2025 3:00 AM EST [facility] Protein, Urine Negative Negative mg/dL LAB URINALYSIS - AUTOMATED METHOD 04/19/2025 3:00 AM EST [facility] Glucose, Urine Negative Negative mg/dL LAB URINALYSIS - AUTOMATED METHOD 04/19/2025 3:00 AM EST [facility] Ketones, Urine Negative Negative mg/dL LAB URINALYSIS - AUTOMATED METHOD 04/19/2025 3:00 AM EST [facility] Blood, Urine Negative Negative LAB URINALYSIS - AUTOMATED METHOD 04/19/2025 3:00 AM EST [facility] Bilirubin, Urine Negative Negative LAB URINALYSIS - AUTOMATED METHOD 04/19/2025 3:00 AM [facility] Urobilinogen, Urine 1.0 0.2 to 1.0 mg/dL LAB URINALYSIS - AUTOMATED METHOD 04/19/2025 3:00 AM EST [facility] Leukocytes, Urine Negative Negative LAB URINALYSIS - AUTOMATED METHOD 04/19/2025 3:00 AM [facility] Nitrite, Urine Negative Negative LAB URINALYSIS - AUTOMATED METHOD 04/19/2025 3:00 AM EST [facility] Urine Urine specimen obtained by clean catch procedure / Unknown Non-blood Collection / Unknown 04/19/2025 2:47 AM EST 04/19/2025 2:58 AM EST Yousif Anderson DO LAB URINE ORDERABLES Final R esult Performing Organization Address City/State/[facility] Co de Phone Number [facility] [address] [place] [address] * Drug abuse screen (04/19/2025 2:47 AM EST) Amphetamine Screen Urine Negative Cutoff: 500 ng/mL 04/19/2025 3:35 AM [facility] Benzodiazepines Screen Urine Negative Cutoff: 200 ng/mL 04/19/2025 3:35 AM [facility] Cannabinoid Screen Urine Negative Cutoff: 50 ng/mL 04/19/2025 3:35 AM EST [facility] Cocaine Screen Urine Negative Cutoff: 300 ng/mL 04/19/2025 3:35 AM EST [facility] Barbiturate Screen Urine Negative Cutoff: 200 ng/mL 04/19/2025 3:35 AM [facility] Opiate Screen Urine Presumptive positive. Confirmation by LC-MS/MS to follow. Cutoff: 300 ng/mL 04/19/2025 3:35 AM EST [facility] Methadone Screen Urine Negative Cutoff: 300 ng/mL 04/19/2025 3:35 AM EST [facility] Buprenorphine Screen Urine Negative Cutoff: 10 ng/mL 04/19/2025 3:35 AM [facility] Fentanyl Screen Urine Negative Cutoff: 1 ng/mL 04/19/2025 3:35 AM EST [facility] Oxycodone Screen Urine Negative Cutoff: 100 ng/mL 04/19/2025 3:35 AM EST [facility] Urine Urine specimen obtained by clean catch procedure / Unknown Non-blood Collection / Unknown 04/19/2025 2:47 AM EST 04/19/2025 3:04 AM EST us Julia Jacobson APRN LAB URINE ORDERABLES Final Result Performing Organization Address [facility] Co de Phone Number [facility] [address] [place] [address] * PT-INR (04/19/2025 1:41 AM EST) Prothrombin Time 13.3 12.0 - 14.3 sec 04/19/2025 2:04 AM EST [facility] INR 1.0 0.9 - 1.1 04/19/2025 2:04 AM EST [facility] Blood Venous blood specimen / Unknown Venipuncture / Unknown 04/19/2025 1:41 AM EST 04/19/2025 1:52 AM EST Narrative [facility] - 04/19/2025 2:04 AM EST OPTIMAL INR RANGES FOR PATIENT ON ORAL ANTICOAGULANT THERAPY Prevention of venous thromboembolism INR 2.0 to 3.0 In patients with heart disease: Atrial fibrillation INR 2.0 to 3.0 Valvular heart disease INR 2.0 to 3.0 Tissue heart valves INR 2.0 to 3.0 Mechanical prosthetic valves INR 2.5 to 3.5 Prevention of recurrent CA INR 2.5 to 3.5 us Yousif Anderson DO LAB BLOOD ORDERABLES Final R esult [facility] [address] [place] [address] * Anti Xa Level Unfractionated Heparin (04/19/2025 1:41 AM EST) Anti Xa Level Unfractionated Heparin <0.11 <1.00 IU/mL 04/19/2025 2:06 AM EST [facility] Blood Venous blood specimen / Unknown Venipuncture / Unknown 04/19/2025 1:41 AM EST 04/19/2025 1:52 AM EST Narrative [facility] - 04/19/2025 2:06 AM EST Therapeutic Range: UFH Full Dose and ACS/CA protocols*: 0.30 - 0.70 IU/mL UFH Low Dose protocol*: 0.25 - 0.50 IU/mL UFH prophylaxis: Not established Yousif Archie Anderson DO LAB BLOOD ORDERABLES Final R esult Performing Organization Address City/[facility]/ZIP Co de Phone Number [facility] [address] [place] [address] * Troponin now and 120 min (04/19/2025 1:41 AM EST) Pathologist [facility] Troponin T, High Sensitivity, 0 Hour 8 <14 ng/L 04/19/2025 2:25 AM EST [facility] Blood Venous blood specimen / Unknown Venipuncture / Unknown 04/19/2025 1:41 AM EST 04/19/2025 1:58 AM EST Yousif Archie Anderson DO LAB BLOOD [place] [address] * EKG now - STAT (adult) (04/19/2025 1:32 AM EST) EKG DIAGNOSIS CLASS Normal MUSE ECG Ventricular Rate 87 BPM MUSE ECG Atrial Rate 87 BPM MUSE ECG MI Interval 140 ms MUSE ECG QRSD Interval 94 ms MUSE ECG QT Interval 388 ms MUSE ECG QTC Interval 466 ms MUSE ECG P [place] 70 degrees MUSE ECG R [place] 47 degrees MUSE ECG T Wave [place] 69 degrees MUSE ECG Diagnosis Normal sinus rhythm MUSE ECG Diagnosis Normal ECG MUSE ECG Diagnosis MUSE ECG Diagnosis Confirmed by Dennis Castaneda ([id number]) on 04/19/2025 9:10:21 AM MUSE ECG 04/19/2025 1:32 AM EST 04/19/2025 9:10 AM EST us Yosuif Anderson DO ECG ORDERABLES Final Result MUSE ECG * CT Head wo IV Contrast (04/19/2025 1:25 AM EST) Anatomical Region Laterality Modality Head Computed Tomogra phy Impressions 04/19/2025 2:37 AM EST No acute intracranial abnormality. CRITICAL RESULT: No. COMMUNICATION: Per this written report. Preliminary report signed by Olimpia Izaguirre MD on 04/19/2025 2:03 AM By electronically signing this report, I, the attending physician, attest that I have personally reviewed the images/data for the above examination(s) and agree with the final edited report. Drafted by Olimpia Izaguirre MD on 04/19/2025 1:59 AM Final report signed by Dennis Ibrahim MD on 04/19/2025 2:37 AM Narrative 04/19/2025 2:37 AM EST CLINICAL INDICATION: Mental status change, persistent or worsening TECHNIQUE: Routine contiguous axial CT images of the head were obtained without contrast administration. Total DLP (Dose-Length Product): 1075.36 mGy.cm. Please note: The reported value represents the total of one or more individual components during the CT acquisition on this date and at this time, and as such, the same value may appear in more than one CT report depending on the interpreting/reporting physicians. COMPARISON: CT head 04/18/2025 from outside facility FINDINGS: No acute intracranial abnormality. No evidence of acute hemorrhage or ischemia. No mass, mass effect, or midline displacement of structures. Normal ventricular size and configuration. Patent basal cisterns. No displaced or depressed calvarial fractures. The visualized paranasal sinuses and mastoid air cells are clear. Procedure Note Dennis Ibrahim MD - 04/19/2025 CLINICAL INDICATION: Mental status change, persistent or worsening TECHNIQUE: Routine contiguous axial CT images of the head were obtained withoutcontrast administration. Total DLP (Dose-Length Product): 1075.36 mGy.cm. Please note: The reportedvalue represents the total of one or more individual components during theCT acquisition on this date and at this time, and as such, the same valuemay appear in more than one CT report depending on theinterpreting/reporting physicians. COMPARISON: CT head 04/18/2025 from outside facility FINDINGS: No acute intracranial abnormality. No evidence of acute hemorrhage orischemia. No mass, mass effect, or midline displacement of structures.Normal ventricular size and configuration. Patent basal cisterns. No displaced or depressed calvarial fractures. The visualized paranasalsinuses and mastoid air cells are clear. IMPRESSION: No acute intracranial abnormality. CRITICAL RESULT: No. COMMUNICATION: Per this written report. Preliminary report signed by Olimpia Izaguirre MD on 04/19/2025 2:03 AM By electronically signing this report, I, the attending physician, attestthat I have personally reviewed the images/data for the aboveexamination(s) and agree with the final edited report. Drafted by Olimpia Izaguirre MD on 04/19/2025 1:59 AM Final report signed by Dennis Ibrahim MD on 04/19/2025 2:37 AM us Julia Jacobson PLANT MAINTENANCE TECHNICIAN IMG CT PROCEDURES Final Res ult * CT Knee Left wo IV Contrast (04/19/2025 1:25 AM EST) Anatomical Region Laterality Modality Knee Left Computed Tomogra phy Impressions 04/19/2025 3:23 AM EST Comminuted mildly displaced periprosthetic fracture CRITICAL RESULT: No. COMMUNICATION: Per this written report. By electronically signing this report, I, the attending physician, attest that I have personally reviewed the images/data for the above examination(s) and agree with the final edited report. Drafted by Kathryn Carr MD on 04/19/2025 2:17 AM Final report signed by Dennis Ibrahim MD on 04/19/2025 3:23 AM Narrative 04/19/2025 3:23 AM EST CLINICAL INDICATION: fx TECHNIQUE: Multiple axial CT images were obtained through the left knee without contrast. The axial CT data set was used to generate high resolution reformatted images in the coronal and sagittal planes to facilitate diagnostic accuracy and treatment planning. Total DLP (Dose-Length Product): 1075.36 mGy.cm. Please note: The reported value represents the total of one or more individual components during the CT acquisition on this date and at this time, and as such, the same value may appear in more than one CT report depending on the interpreting/reporting physicians. COMPARISON: Same-day radiographs FINDINGS: Comminuted periprosthetic fracture mildly displaced along the lateral distal femur diaphysis and condyle. Overlying soft tissue swelling. Small suprapatellar joint effusion. No soft tissue fluid collection or destructive osseous lesion. No malalignment. Procedure Note Dennis Ibrhaim MD - 04/19/2025 CLINICAL INDICATION: fx TECHNIQUE: Multiple axial CT images were obtained through the left knee withoutcontrast. The axial CT data set was used to generate high resolutionreformatted images in the coronal and sagittal planes to facilitatediagnostic accuracy and treatment planning. Total DLP (Dose-Length Product): 1075.36 mGy.cm. Please note: The reportedvalue represents the total of one or more individual components during theCT acquisition on this date and at this time, and as such, the same valuemay appear in more than one CT report depending on theinterpreting/reporting physicians. COMPARISON: Same-day radiographs FINDINGS: Comminuted periprosthetic fracture mildly displaced along the lateraldistal femur diaphysis and condyle. Overlying soft tissue swelling. Smallsuprapatellar joint effusion. No soft tissue fluid collection ordestructive osseous lesion. No malalignment. IMPRESSION: Comminuted mildly displaced periprosthetic fracture CRITICAL RESULT: No. COMMUNICATION: Per this written report. By electronically signing this report, I, the attending physician, cassia I have personally reviewed the images/data for the aboveexamination(s) and agree with the final edited report. Drafted by Kathryn Carr MD on 04/19/2025 2:17 AM Final report signed by Dennis Ibrahim MD on 04/19/2025 3:23 AM us Graciela Chauhan MD IMG CT PROCEDURES Final R esult * Salicylate level (04/19/2025 12:51 AM EST) Salicylate, Quantitative, Plasma <1.0 <25 mg/dL mg/dL 04/19/2025 2:29 AM EST [facility] Blood Venous blood specimen / Unknown Venipuncture / Unknown 04/19/2025 12:51 AM EST 04/19/2025 1:00 AM EST Narrative [facility] - 04/19/2025 2:29 AM EST Therapeutic Range: <25 mg/dL Supratherapeutic Level: >30 mg/dL Yousif Almanza [place] DO LAB BLOOD ORDERABLES Final R esult Performing Organization Address City/[facility]/[place] [address] * (ABNORMAL) Acetaminophen, Quantitative, Plasma (04/19/2025 12:51 AM EST) Acetaminophen <5.0(L) 10.0 - 30.0 g/mL 04/19/2025 2:29 AM EST [facility] Blood Venous blood specimen / Unknown Venipuncture / Unknown 04/19/2025 12:51 AM EST 04/19/2025 1:00 AM EST Narrative [facility] - 04/19/2025 2:29 AM EST Therapeutic: 10 to 30 ug/mL Supratherapeutic: >35 ug/mL us Yousif Almanza [place] DO LAB BLOOD ORDERABLES Final R esult Performing Organization Address City/[facility]/ZIP Co de Phone Number [facility] [address] [place] [address] * Free T4, Plasma (04/19/2025 12:51 AM EST) Free T4, Plasma 1.4 0.8 - 1.7 ng/dL 04/19/2025 2:29 AM EST [facility] Blood Venous blood specimen / Unknown Venipuncture / Unknown 04/19/2025 12:51 AM EST 04/19/2025 1:00 AM EST Yousif Almanza [place] DO LAB BLOOD ORDERABLES Final R esult Performing Organization Address City/[facility]/ZIP Co de Phone Number [facility] [address] [place] [address] * Thyroid Stimulating Hormone, Plasma (04/19/2025 12:51 AM EST) Thyroid Stimulating Hormone, Plasma 3.08 0.40 - 4.20 uIU/mL 04/19/2025 2:29 AM EST [facility] Blood Venous blood specimen / Unknown Venipuncture / Unknown 04/19/2025 12:51 AM EST 04/19/2025 1:00 AM EST Yousif Anderson DO LAB BLOOD ORDERABLES Final R esult Performing Organization Address City/[facility] Co de Phone Number [facility] [address] [place] [address] * ED HIV 1/2 Antibody/Antigen Screen w/Reflex to HIV 1/2 Differentiation (04/19/2025 12:51 AM EST) Pathologist [facility] HIV 1 & 2 Antibody/Antigen Screen Non Reactive Non Reactive 04/19/2025 1:50 AM EST [facility] Comment:Screening for HIV 1 & 2 antibodies, and P24 antigen is NONREACTIVE. No confirmatory testing is required. Blood Venous blood specimen / Unknown Venipuncture / Unknown 04/19/2025 12:51 AM EST 04/19/2025 1:11 AM EST Julia Jacobson APRN LAB BLOOD ORDERABLES Final Result Performing Organization Address City/[facility]/ZIP Co de Phone Number [facility] [address] [place] [address] * Hepatitis C Antibody - ED (04/19/2025 12:51 AM EST) Hepatitis C Antibody Negative Negative 04/19/2025 1:50 AM EST [facility] Blood Venous blood specimen / Unknown Venipuncture / Unknown 04/19/2025 12:51 AM EST 04/19/2025 1:10 AM EST Julia P Gramig PLANT MAINTENANCE TECHNICIAN LAB BLOOD ORDERABLES Final Result [facility] [address] [place] [address] * Ethyl Alcohol Plasma (04/19/2025 12:51 AM EST) Pathologist [facility] Ethanol Plasma <10 <10 mg/dL 04/19/2025 1:30 AM EST [facility] Blood Venous blood specimen / Unknown Venipuncture / Unknown 04/19/2025 12:51 AM EST 04/19/2025 1:00 AM EST Narrative [facility] - 04/19/2025 1:30 AM EST Enzymatic Assay: Performed on [employer]. us Julia Jacobson APRN LAB BLOOD ORDERABLES Final Result Performing Organization Address [facility] Co de Phone Number [facility] [address] [place] [address] * (ABNORMAL) Blood gas panel, venous (04/19/2025 12:51 AM EST) pH, Venous 7.34 7.32 - 7.43 LAB HEMATOLOGY METHOD 04/19/2025 1:06 AM EST [facility] pCO2, Venous 50 37 - 52 mmHg LAB HEMATOLOGY METHOD 04/19/2025 1:06 AM EST [facility] pO2, Venous 40 25 - 40 mmHg LAB HEMATOLOGY METHOD 04/19/2025 1:06 AM EST [facility] SO2, Measured, Venous 73 65 - 80 % LAB HEMATOLOGY METHOD 04/19/2025 1:06 AM EST [facility] Base Excess, Venous 0.3 -2.0 - 3.0 mmol/L LAB HEMATOLOGY METHOD 04/19/2025 1:06 AM EST [facility] Bicarbonate, Calculated, Venous 27(H) 22 - 26 mmol/L LAB HEMATOLOGY METHOD 04/19/2025 1:06 AM EST [facility] Hematocrit, Whole Blood 41.6 34.0 - 45.0 % LAB HEMATOLOGY METHOD 04/19/2025 1:06 AM EST [facility] Sodium, Whole Blood 141 136 - 145 mmol/L LAB HEMATOLOGY METHOD 04/19/2025 1:06 AM EST [facility] Potassium, Whole Blood 3.7 3.6 - 4.9 mmol/L LAB HEMATOLOGY METHOD 04/19/2025 1:06 AM EST [facility] Chloride, Whole Blood 106 97 - 107 mmol/L LAB HEMATOLOGY METHOD 04/19/2025 1:06 AM EST [facility] Glucose, Whole Blood 116(H) 74 - 99 mg/dL LAB HEMATOLOGY METHOD 04/19/2025 1:06 AM EST [facility] Lactate, Venous, Whole Blood 1.7 0.5 - 2.2 mmol/L LAB HEMATOLOGY METHOD 04/19/2025 1:06 AM EST [facility] Ionized Calcium, Whole Blood 4.4(L) 4.6 - 5.1 mg/dL LAB HEMATOLOGY METHOD 04/19/2025 1:06 AM EST [facility] Blood Venous blood specimen / Unknown Venipuncture / Unknown 04/19/2025 12:51 AM EST 04/19/2025 1:04 AM EST Julia Jacobson PLANT MAINTENANCE TECHNICIAN LAB BLOOD ORDERABLES Final Result [facility] [address] [place] [address] * (ABNORMAL) CBC w/diff (04/19/2025 12:51 AM EST) WBC Count 11.36(H) 3.70 - 10.30 10*3/uL LAB HEMATOLOGY METHOD 04/19/2025 1:04 AM EST [facility] RBC Count 4.30 3.90 - 5.20 10*6/uL LAB HEMATOLOGY METHOD 04/19/2025 1:04 AM EST [facility] HGB 13.0 11.2 - 15.7 g/dL LAB HEMATOLOGY METHOD 04/19/2025 1:04 AM EST [facility] HCT 38.4 34.0 - 45.0 % LAB HEMATOLOGY METHOD 04/19/2025 1:04 AM EST [facility] Platelet Count 256 155 - 369 10*3/uL LAB HEMATOLOGY METHOD 04/19/2025 1:04 AM EST [facility] MCV 89 79 - 98 fL LAB HEMATOLOGY METHOD 04/19/2025 1:04 AM EST [facility] MCH 30.2 26.0 - 32.0 pg LAB HEMATOLOGY METHOD 04/19/2025 1:04 AM [facility] MCHC 33.9 30.7 - 35.5 g/dL LAB HEMATOLOGY METHOD 04/19/2025 1:04 AM [facility] RDW 12.1 11.5 - 14.5 % LAB HEMATOLOGY METHOD 04/19/2025 1:04 AM [facility] MPV 9.0 8.8 - 12.5 fL LAB HEMATOLOGY METHOD 04/19/2025 1:04 AM [facility] nRBC 0.0 <=0.0 per 100 WBCs LAB HEMATOLOGY METHOD 04/19/2025 1:04 AM [facility] Differential Type Automated LAB HEMATOLOGY METHOD 04/19/2025 1:04 AM [facility] Neutrophils % 83 % LAB HEMATOLOGY METHOD 04/19/2025 1:04 AM [facility] Lymphocytes % 11 % LAB HEMATOLOGY METHOD 04/19/2025 1:04 AM [facility] Monocytes % 6 % LAB HEMATOLOGY METHOD 04/19/2025 1:04 AM [facility] Eosinophils % 0 % LAB HEMATOLOGY METHOD 04/19/2025 1:04 AM [facility] Basophils % 0 % LAB HEMATOLOGY METHOD 04/19/2025 1:04 AM [facility] Immature Granulocytes % 0 % LAB HEMATOLOGY METHOD 04/19/2025 1:04 AM [facility] Neutrophils Absolute 9.27(H) 1.60 - 6.10 10*3/uL LAB HEMATOLOGY METHOD 04/19/2025 1:04 AM [facility] Lymphocytes Absolute 1.27 1.20 - 3.90 10*3/uL LAB HEMATOLOGY METHOD 04/19/2025 1:04 AM [facility] Monocytes Absolute 0.72 0.30 - 0.90 10*3/uL LAB HEMATOLOGY METHOD 04/19/2025 1:04 AM [facility] Eosinophils Absolute 0.03 0.00 - 0.50 10*3/uL LAB HEMATOLOGY METHOD 04/19/2025 1:04 AM [facility] Basophils Absolute 0.03 0.00 - 0.10 10*3/uL LAB HEMATOLOGY METHOD 04/19/2025 1:04 AM [facility] Immature Granulocytes Absolute 0.04 0.00 - 0.06 10*3/uL LAB HEMATOLOGY METHOD 04/19/2025 1:04 AM EST [facility] Blood Venous blood specimen / Unknown Venipuncture / Unknown 04/19/2025 12:51 AM EST 04/19/2025 1:01 AM EST Narrative [facility] - 04/19/2025 1:04 AM EST Therapeutic decision making should be based on absolute values, rather than percentages. us Julia Jacobson PLANT MAINTENANCE TECHNICIAN LAB BLOOD ORDERABLES Final Result [facility] [address] [place] [address] * (ABNORMAL) CMP (04/19/2025 12:51 AM EST) Glucose, Plasma 130(H) 74 - 99 mg/dL 04/19/2025 1:31 AM EST [facility] BUN, Plasma 10 8 - 23 mg/dL 04/19/2025 1:31 AM EST [facility] Creatinine, Plasma 0.71 0.60 - 1.10 mg/dL 04/19/2025 1:31 AM EST [facility] BUN/Creatinine Ratio 14 04/19/2025 1:31 AM EST [facility] Sodium, Plasma 137 136 - 145 mmol/L 04/19/2025 1:31 AM EST [facility] Potassium, Plasma 4.7 3.6 - 4.9 mmol/L 04/19/2025 1:31 AM EST [facility] Comment:Hemolyzed - Potassiu m may be falsely elevated by approximately 0.8-1.7 mmol/L. Chloride, Plasma 103 97 - 107 mmol/L 04/19/2025 1:31 AM EST [facility] CO2, Plasma 24 22 - 29 mmol/L 04/19/2025 1:31 AM EST [facility] Anion Gap 10 6 - 16 mmol/L 04/19/2025 1:31 AM EST [facility] Total Calcium, Plasma 9.1 8.9 - 10.2 mg/dL 04/19/2025 1:31 AM EST [facility] Total Protein 6.4 6.3 - 7.9 g/dL 04/19/2025 1:31 AM EST [facility] Albumin, Plasma 4.0 3.5 - 5.2 g/dL 04/19/2025 1:31 AM EST [facility] AST, Plasma 46(H) 10 - 35 U/L 04/19/2025 1:31 AM EST [facility] Comment:Hemolyzed, result ma y be falsely increased. ALT, Plasma 30 10 - 35 U/L 04/19/2025 1:31 AM EST [facility] Comment:Hemolyzed, result ma y be falsely increased or decreased. Alkaline Phosphatase, Plasma 110 46 - 142 U/L 04/19/2025 1:31 AM EST [facility] Total Bilirubin, Plasma 0.6 0.2 - 1.1 mg/dL 04/19/2025 1:31 AM EST [facility] eGFRcr 95.7 mL/min/1.7 3m*2 04/19/2025 1:31 AM EST [facility] Comment:Reported eGFRcr in m L/min/1.73m2 is based the CKD-EPI 2020 equation that does not use a race coefficient. Blood Venous blood specimen / Unknown Venipuncture / Unknown 04/19/2025 12:51 AM EST 04/19/2025 1:00 AM EST us Julia Jacobson PLANT MAINTENANCE TECHNICIAN LAB BLOOD ORDERABLES Final Result Performing Organization Address City/State/[facility] Co de Phone Number [facility] [address] [place] [address] * XR Knee Left 3 Views (04/19/2025 12:16 AM EST) Anatomical Region Laterality Modality Lower Extremities, Knee Left Computed Radiography Impressions 04/19/2025 12:40 AM EST Mildly displaced periprosthetic fracture through the distal diaphysis of the femur with overlying soft tissue swelling and small suprapatellar effusion. CRITICAL RESULT: No. COMMUNICATION: Per this written report. Drafted by Gabriela Nelson MD on 04/19/2025 12:35 AM Final report signed by Gabriela Nelson MD on 04/19/2025 12:40 AM Narrative 04/19/2025 12:40 AM EST CLINICAL INDICATION: Distal Left Femoral fx TECHNIQUE: XR HIP LEFT 2 OR 3 VIEWS, XR TIBIA FIBULA LEFT 2+ VIEWS, XR FEMUR LEFT 2+ VIEWS, XR KNEE LEFT 3 VIEWS COMPARISON: None. FINDINGS: Contrast material is present within the distended urinary bladder. Limited evaluation of the sacrum secondary to overlying bowel gas and stool. No acute pelvic fractures are identified. No acute fracture of the proximal femur. Patient status post prior knee arthroplasty. There is a mildly displaced periprosthetic fracture through the distal femur small suprapatellar effusion. Mild soft tissue swelling of the knee. No acute fracture the tib-fib. Procedure Note Gabriela Nelson MD - 04/19/2025 CLINICAL INDICATION: Distal Left Femoral fx TECHNIQUE: XR HIP LEFT 2 OR 3 VIEWS, XR TIBIA FIBULA LEFT 2+ VIEWS, XR FEMUR LEFT 2+VIEWS, XR KNEE LEFT 3 VIEWS COMPARISON: None. FINDINGS: Contrast material is present within the distended urinary bladder. Limitedevaluation of the sacrum secondary to overlying bowel gas and stool. Noacute pelvic fractures are identified. No acute fracture of the proximal femur. Patient status post prior knee arthroplasty. There is a mildly displacedperiprosthetic fracture through the distal femur small suprapatellareffusion. Mild soft tissue swelling of the knee. No acute fracture the tib-fib. IMPRESSION: Mildly displaced periprosthetic fracture through the distal diaphysis ofthe femur with overlying soft tissue swelling and small suprapatellareffusion. CRITICAL RESULT: No. COMMUNICATION: Per this written report. Drafted by Gabriela Nelson MD on 04/19/2025 12:35 AM Final report signed by Gabriela Nelson MD on 04/19/2025 12:40 AM us Julia Jacobson PLANT MAINTENANCE TECHNICIAN IMG XR PROCEDURES Final Res ult * XR Tibia Fibula Left 2+ Views (04/19/2025 12:16 AM EST) Anatomical Region Laterality Modality Lower Extremities, Lower Leg Left Com puted Radiography Impressions 04/19/2025 12:40 AM EST Mildly displaced periprosthetic fracture through the distal diaphysis of the femur with overlying soft tissue swelling and small suprapatellar effusion. CRITICAL RESULT: No. COMMUNICATION: Per this written report. Drafted by Gabriela Nelson MD on 04/19/2025 12:35 AM Final report signed by Gabriela Nelson MD on 04/19/2025 12:40 AM Narrative 04/19/2025 12:40 AM EST CLINICAL INDICATION: Distal Left Femoral fx TECHNIQUE: XR HIP LEFT 2 OR 3 VIEWS, XR TIBIA FIBULA LEFT 2+ VIEWS, XR FEMUR LEFT 2+ VIEWS, XR KNEE LEFT 3 VIEWS COMPARISON: None. FINDINGS: Contrast material is present within the distended urinary bladder. Limited evaluation of the sacrum secondary to overlying bowel gas and stool. No acute pelvic fractures are identified. No acute fracture of the proximal femur. Patient status post prior knee arthroplasty. There is a mildly displaced periprosthetic fracture through the distal femur small suprapatellar effusion. Mild soft tissue swelling of the knee. No acute fracture the tib-fib. Procedure Note Gabriela Nelson MD - 04/19/2025 CLINICAL INDICATION: Distal Left Femoral fx TECHNIQUE: XR HIP LEFT 2 OR 3 VIEWS, XR TIBIA FIBULA LEFT 2+ VIEWS, XR FEMUR LEFT 2+VIEWS, XR KNEE LEFT 3 VIEWS COMPARISON: None. FINDINGS: Contrast material is present within the distended urinary bladder. Limitedevaluation of the sacrum secondary to overlying bowel gas and stool. Noacute pelvic fractures are identified. No acute fracture of the proximal femur. Patient status post prior knee arthroplasty. There is a mildly displacedperiprosthetic fracture through the distal femur small suprapatellareffusion. Mild soft tissue swelling of the knee. No acute fracture the tib-fib. IMPRESSION: Mildly displaced periprosthetic fracture through the distal diaphysis ofthe femur with overlying soft tissue swelling and small suprapatellareffusion. CRITICAL RESULT: No. COMMUNICATION: Per this written report. Drafted by Gabriela Nelson MD on 04/19/2025 12:35 AM Final report signed by Gabriela Nelson MD on 04/19/2025 12:40 AM us Julia Jacobson PLANT MAINTENANCE TECHNICIAN IMG XR PROCEDURES Final Res ult * XR Femur Left 2+ Views (04/19/2025 12:16 AM EST) Anatomical Region Laterality Modality Lower Extremities, Femur Left Compute d Radiography Impressions 04/19/2025 12:40 AM EST Mildly displaced periprosthetic fracture through the distal diaphysis of the femur with overlying soft tissue swelling and small suprapatellar effusion. CRITICAL RESULT: No. COMMUNICATION: Per this written report. Drafted by Gabriela Nelson MD on 04/19/2025 12:35 AM Final report signed by Gabriela Nelson MD on 04/19/2025 12:40 AM Narrative 04/19/2025 12:40 AM EST CLINICAL INDICATION: Distal Left Femoral fx TECHNIQUE: XR HIP LEFT 2 OR 3 VIEWS, XR TIBIA FIBULA LEFT 2+ VIEWS, XR FEMUR LEFT 2+ VIEWS, XR KNEE LEFT 3 VIEWS COMPARISON: None. FINDINGS: Contrast material is present within the distended urinary bladder. Limited evaluation of the sacrum secondary to overlying bowel gas and stool. No acute pelvic fractures are identified. No acute fracture of the proximal femur. Patient status post prior knee arthroplasty. There is a mildly displaced periprosthetic fracture through the distal femur small suprapatellar effusion. Mild soft tissue swelling of the knee. No acute fracture the tib-fib. Procedure Note Gabriela Nelson MD - 04/19/2025 CLINICAL INDICATION: Distal Left Femoral fx TECHNIQUE: XR HIP LEFT 2 OR 3 VIEWS, XR TIBIA FIBULA LEFT 2+ VIEWS, XR FEMUR LEFT 2+VIEWS, XR KNEE LEFT 3 VIEWS COMPARISON: None. FINDINGS: Contrast material is present within the distended urinary bladder. Limitedevaluation of the sacrum secondary to overlying bowel gas and stool. Noacute pelvic fractures are identified. No acute fracture of the proximal femur. Patient status post prior knee arthroplasty. There is a mildly displacedperiprosthetic fracture through the distal femur small suprapatellareffusion. Mild soft tissue swelling of the knee. No acute fracture the tib-fib. IMPRESSION: Mildly displaced periprosthetic fracture through the distal diaphysis ofthe femur with overlying soft tissue swelling and small suprapatellareffusion. CRITICAL RESULT: No. COMMUNICATION: Per this written report. Drafted by Gabriela Nelson MD on 04/19/2025 12:35 AM Final report signed by Gabriela Nelson MD on 04/19/2025 12:40 AM us Julia Jacobson PLANT MAINTENANCE TECHNICIAN IMG XR PROCEDURES Final Res ult * XR Hip Left 2 or 3 Views Including Pelvis (04/19/2025 12:16 AM EST) Anatomical Region Laterality Modality Lower Extremities, Hip Left Computed Radiography Impressions 04/19/2025 12:40 AM EST Mildly displaced periprosthetic fracture through the distal diaphysis of the femur with overlying soft tissue swelling and small suprapatellar effusion. CRITICAL RESULT: No. COMMUNICATION: Per this written report. Drafted by Gabriela Nelson MD on 04/19/2025 12:35 AM Final report signed by Gabriela Nelson MD on 04/19/2025 12:40 AM Narrative 04/19/2025 12:40 AM EST CLINICAL INDICATION: Distal Left Femoral fx TECHNIQUE: XR HIP LEFT 2 OR 3 VIEWS, XR TIBIA FIBULA LEFT 2+ VIEWS, XR FEMUR LEFT 2+ VIEWS, XR KNEE LEFT 3 VIEWS COMPARISON: None. FINDINGS: Contrast material is present within the distended urinary bladder. Limited evaluation of the sacrum secondary to overlying bowel gas and stool. No acute pelvic fractures are identified. No acute fracture of the proximal femur. Patient status post prior knee arthroplasty. There is a mildly displaced periprosthetic fracture through the distal femur small suprapatellar effusion. Mild soft tissue swelling of the knee. No acute fracture the tib-fib. Procedure Note Gabriela Nelson MD - 04/19/2025 CLINICAL INDICATION: Distal Left Femoral fx TECHNIQUE: XR HIP LEFT 2 OR 3 VIEWS, XR TIBIA FIBULA LEFT 2+ VIEWS, XR FEMUR LEFT 2+VIEWS, XR KNEE LEFT 3 VIEWS COMPARISON: None. FINDINGS: Contrast material is present within the distended urinary bladder. Limitedevaluation of the sacrum secondary to overlying bowel gas and stool. Noacute pelvic fractures are identified. No acute fracture of the proximal femur. Patient status post prior knee arthroplasty. There is a mildly displacedperiprosthetic fracture through the distal femur small suprapatellareffusion. Mild soft tissue swelling of the knee. No acute fracture the tib-fib. IMPRESSION: Mildly displaced periprosthetic fracture through the distal diaphysis ofthe femur with overlying soft tissue swelling and small suprapatellareffusion. CRITICAL RESULT: No. COMMUNICATION: Per this written report. Drafted by Gabriela Nelson MD on 04/19/2025 12:35 AM Final report signed by Gabriela Nelson MD on 04/19/2025 12:40 AM us Julia P Gramig PLANT MAINTENANCE TECHNICIAN IMG XR PROCEDURES Final Res ult * (ABNORMAL) POCT glucose meter (04/18/2025 11:27 PM EST) POCT Glucose 133(H) 74 - 99 mg/dL 04/18/2025 11:28 PM EST [email or web address] Comment:Accuracy of a glucos e result obtained from a capillary whole blood specimen relies upon adequate, non-compromised capillary blood flow. If the capillary glucose result is not consistent with the patient's clinical signs and symptoms, glucose testing should be repeated with either an arterial or venous sample on the glucometer or sent to the main labortory for testing. Comment 04/18/2025 11:28 PM EST [facility] Alcoholism Worker ID [email or web address] 04/18/2025 11:28 PM EST [facility] Device ID [id number] 04/18/2025 11:28 PM EST [facility] Specimen Type POC Capillary 04/18/2025 11:28 PM EST [facility] Blood Capillary blood specimen / Unknown 04/18/2025 11:27 PM EST 04/18/2025 11:28 PM EST us Generic Provider Po[facility] LAB POINT OF CARE TEST DOCKED DEVICE UNSOLICITED RESULTS Final Result [facility] [address] [place] [address] documented in this encounter Visit Diagnoses Diagnosis Fall at home, initial encounter- Primary Altered mental status, unspecified altered mental status type 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, initial encounter Fall, initial encounter Polypharmacy Issue of repeat prescriptions Closed fracture of left femur Acute encephalopathy FAMILIA (generalized anxiety disorder) Generalized anxiety disorder Migraines Migraine, unspecified, without mention of intractable migraine without mention of status migrainosus CAD (coronary artery disease) Coronary atherosclerosis of unspecified type of vessel, [place] river or graft Heart failure Unspecified heart failure COPD (chronic obstructive pulmonary disease) Chronic airway obstruction, not elsewhere classified HTN (hypertension) Unspecified essential hypertension GERD (gastroesophageal reflux disease) Esophageal reflux Age-related osteoporosis with current pathological fracture Chronic back pain Unspecified backache IBS (irritable bowel syndrome) Irritable bowel syndrome Urge incontinence T2DM (type 2 diabetes mellitus) Type II or unspecified type diabetes mellitus without mention of complication, not stated as uncontrolled Altered mental status 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, initial encounter Hyperkalemia Hyperpotassemia Fall, initial encounter Mood disorder (CMS/HCC) Unspecified episodic mood disorder Hypomagnesemia Disorders of magnesium metabolism Acute blood loss anemia (ABLA) documented in this encounter Admitting Diagnoses Diagnosis Fall at home, initial encounter 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, initial encounter Fall, initial encounter documented in this encounter Administered Medications Inactive Administered Medications - up to 3 most recent administrations Medication Order MAR Action Action Date Dose Rate Site acetaminophen (Tylenol) tablet 1,000 mg 1,000 mg, Oral, Every 6 hours scheduled, First dose on Sat04/19/25 at 0650, Until Discontinued, Routine Given 04/26/2025 11:58 AM EST 1,000 mg Given 04/26/2025 7:00 AM EST 1,000 mg Given 04/26/2025 12:06 AM EST 1,000 mg atorvastatin (Lipitor) tablet 80 mg 80 mg, Oral, Daily, First dose on Sat04/20/25 at 1300, Until Discontinued Given 04/26/2025 9:15 AM EST 80 mg Given 04/25/2025 9:01 AM EST 80 mg Given 04/24/2025 8:10 AM EST 80 mg baclofen (Lioresal) tablet 10 mg 10 mg, Oral, 3 times daily, First dose (after last modification) on Sat04/22/25 at 0900, Until Discontinued, Routine Given 04/26/2025 9:15 AM EST 10 mg Given 04/25/2025 9:20 PM EST 10 mg Given 04/25/2025 3:44 PM EST 10 mg baclofen (Lioresal) tablet 5 mg 5 mg, Oral, 3 times daily, First dose on Sat04/20/25 at 1600, Until Discontinued, Routine Given 04/21/2025 10:21 PM EST 5 mg Given 04/21/2025 10:16 AM EST 5 mg Given 04/20/2025 9:49 PM EST 5 mg cariprazine (Vraylar) capsule 1.5 mg 1.5 mg, Oral, Daily, First dose on Sat04/22/25 at 1100, Until Discontinued, Routine Given 04/26/2025 9:17 AM EST 1.5 mg Given 04/25/2025 9:02 AM EST 1.5 mg Given 04/24/2025 8:11 AM EST 1.5 mg ceFAZolin (Ancef) injection 2 g 2 g, Intravenous, Every 8 hours, 3 doses, First dose on Sat04/21/25 at 2300, Last dose on Sat04/22/25 at 1500, Routine, Recovery(Phase II-Outpatient)/On Unit(Inpatient) Given 04/22/2025 4:12 PM EST 2 g Given 04/22/2025 6:00 AM EST 2 g Given 04/21/2025 10:23 PM EST 2 g dicyclomine (Bentyl) tablet 20 mg 20 mg, Oral, 2 times daily, First dose on Sat04/21/25 at 1230, Until Discontinued, Routine Given 04/26/2025 9:16 AM EST 20 mg Given 04/25/2025 9:29 PM EST 20 mg Given 04/25/2025 9:01 AM EST 20 mg enoxaparin (Lovenox) syringe 30 mg 30 mg, Subcutaneous, 2 times daily, 50 doses, First dose on Sat04/21/25 at 1200, Last dose on Sat05/15/25 at 2100, Routine Given 04/26/2025 9:17 AM EST 30 mg Righ t Lower Abdomen Given 04/25/2025 9:22 PM EST 30 mg Le ft Lower Abdomen Given 04/25/2025 9:01 AM EST 30 mg Le ft Lower Abdomen famotidine (Pepcid) tablet 20 mg 20 mg, Oral, 2 times daily, First dose on Sat04/20/25 at 1300, Until Discontinued Given 04/26/2025 9:16 AM EST 20 mg Given 04/25/2025 9:20 PM EST 20 mg Given 04/25/2025 9:02 AM EST 20 mg fentaNYL (Sublimaze) injection 50 mcg 50 mcg, Intravenous, Every 5 min PRN, 2 doses, Starting on Sat04/21/25 at 1711, Until Sat04/21/25 at 1820, Routine, Recovery (Phase I only), DVPRS >/= 5, CPOT >/= 3, FLACC >/= 4, PAINAD >/= 4 Given 04/21/2025 6:20 PM EST 50 mcg Given 04/21/2025 6:05 PM EST 50 mcg folic acid (Folvite) tablet 1 mg 1 mg, Oral, Daily, First dose on Sat04/19/25 at 0810, Until Discontinued, Routine Given 04/26/2025 9:15 AM EST 1 mg Given 04/25/2025 9:02 AM EST 1 mg Given 04/24/2025 8:11 AM EST 1 mg HYDROmorphone (Dilaudid) injection 0.25 mg 0.25 mg, Intravenous, Once, 1 dose, On Sat04/21/25 at 2130, Routine Given 04/21/2025 8:56 PM EST 0.25 mg HYDROmorphone (Dilaudid) injection 0.5 mg 0.5 mg, Intravenous, Every 10 min PRN, 3 doses, Starting on Sat04/21/25 at 1711, Until Sat04/21/25 at 2016, Routine, Recovery (Phase I only), DVPRS >/= 5, CPOT >/= 3, FLACC >/= 4, PAINAD >/= 4 Given 04/21/2025 6:38 PM EST 0.5 mg hydrOXYzine pamoate (Vistaril) capsule 25 mg 25 mg, Oral, Every 8 hours PRN, Starting on Sat04/20/25 at 1152, Until Sat04/26/25 at 1514, Routine, anxiety Given 04/25/2025 9:20 PM EST 25 mg Kenney powder 1 packet 1 packet, Oral, 2 times daily, First dose on Sat04/19/25 at 1430, Until Discontinued, Routine Given 04/26/2025 9:17 AM EST 1 packet Given 04/25/2025 9:07 AM EST 1 packet Given 04/24/2025 8:11 AM EST 1 packet lactated Ringer's infusion 500 mL 500 mL, Intravenous, Once (Bolus), 1 dose, On Sat04/19/25 at 0050, STAT New Bag 04/19/2025 12:51 AM EST 500 mL magnesium sulfate IVPB 2 g 2 g, Intravenous, Once, 1 dose, On 04/24/25 at 0715, Routine New Bag 04/24/2025 8:15 AM EST 2 g 25 mL/hr magnesium sulfate IVPB 4 g 4 g, Intravenous, Once, 1 dose, On Rosalie 04/22/25 at 0900, Routine New Bag 04/22/2025 9:20 AM EST 4 g 25 mL/hr methocarbamol (Robaxin) tablet 500 mg 500 mg, Oral, Every 8 hours, First dose on Sat04/19/25 at 0650, Until Discontinued, Routine Given 04/19/2025 10:34 PM EST 500 mg Given 04/19/2025 2:39 PM EST 500 mg metoprolol succinate XL (Toprol-XL) 24 hr tablet 12.5 mg 12.5 mg, Oral, Daily, First dose on Sat04/20/25 at 1300, Until Discontinued, Routine Given 04/26/2025 9:15 AM EST 12.5 mg Given 04/25/2025 9:01 AM EST 12.5 mg Given 04/24/2025 8:10 AM EST 12.5 mg mometasone-formoterol (Dulera 200) 200-5 MCG/ACT inhaler 2 puff 2 puff, Inhalation, 2 times daily, First dose on Sat04/20/25 at 1300, Until Discontinued Given 04/26/2025 9:17 AM EST 2 puffs Given 04/25/2025 9:26 PM EST 2 puffs Given 04/25/2025 9:02 AM EST 2 puffs montelukast (Singulair) tablet 10 mg 10 mg, Oral, Nightly, First dose on Sat04/20/25 at 2100, Until Discontinued, Routine Given 04/25/2025 9:20 PM EST 10 mg Given 04/24/2025 9:42 PM EST 10 mg Given 04/23/2025 8:35 PM EST 10 mg multivitamin tablet 1 tablet 1 tablet, Oral, Daily, First dose on 04/24/25 at 1115, Until Discontinued, Routine Given 04/26/2025 9:16 AM EST 1 tablet Given 04/25/2025 9:02 AM EST 1 tablet Given 04/24/2025 11:37 AM EST 1 tablet mupirocin (Bactroban) 2 % ointment 1 Application Each Nostril, 2 times daily, 10 doses, First dose on Sat04/21/25 at 0900, Last dose on Sat04/25/25 at 2100, RoutineIndications:Methicillin-Resista nt S. Aureus Nasal Colonization Given 04/25/2025 9:20 PM EST 1 Applicatio n Given 04/25/2025 9:08 AM EST 1 Application Given 04/24/2025 9:42 PM EST 1 Application naloxone (Narcan) injection 0.4 mg 0.4 mg, Intravenous, Once, 1 dose, On Sat04/19/25 at 0045, STAT Given 04/19/2025 12:52 AM EST 0.4 mg ondansetron ODT (Zofran-ODT) disintegrating tablet 4 mg 4 mg, Oral, Every 6 hours PRN, Starting on Rosalie 04/22/25 at 1159, Until Sat04/26/25 at 1514, Routine, nausea, vomiting Given 04/22/2025 12:29 PM EST 4 mg oxyCODONE (Roxicodone) immediate release tablet 10 mg 10 mg, Oral, Every 4 hours PRN, Starting on Sat04/21/25 at 2128, Until Sat04/26/25 at 1514, Routine, severe pain Given 04/26/2025 12:15 PM EST 10 mg Given 04/25/2025 9:20 PM EST 10 mg Given 04/22/2025 12:29 PM EST 10 mg oxyCODONE (Roxicodone) immediate release tablet 5 mg 5 mg, Oral, Every 6 hours PRN, Starting on Sat04/19/25 at 0649, Until Sat04/21/25 at 2128, Routine, severe pain, Moderate/Severe Pain > or =3: CPOT; > or =4: FLACC, PAINAD, NPASS, NRS, Marin-Menendez Faces; > or =5: DVPRS, NIPS Given 04/21/2025 10:16 AM EST 5 mg Given 04/20/2025 9:27 AM EST 5 mg Given 04/20/2025 12:41 AM EST 5 mg oxyCODONE (Roxicodone) immediate release tablet 5 mg 5 mg, Oral, Every 30 min PRN, 2 doses, Starting on Sat04/21/25 at 1711, Until Sat04/21/25 at 2016, Routine, Recovery (Phase I only), DVPRS >/= 5, CPOT >/= 3, FLACC >/= 4, PAINAD >/= 4 Given 04/21/2025 6:55 PM EST 5 mg oxyCODONE (Roxicodone) immediate release tablet 5 mg 5 mg, Oral, Every 4 hours PRN, Starting on Sat04/21/25 at 2128, Until Sat04/26/25 at 1514, Routine, Moderate/Severe Pain > or =3: CPOT; > or =4: FLACC, PAINAD, NPASS, NRS, Marin-Menendez Faces; > or =5: DVPRS, NIPS Given 04/24/2025 11:18 PM EST 5 mg Given 04/24/2025 1:52 PM EST 5 mg Given 04/23/2025 5:34 AM EST 5 mg polyethylene glycol (Miralax) packet 17 g 17 g, Oral, Daily, First dose on Sat04/19/25 at 0900, Until Discontinued, Routine Given 04/24/2025 8:11 AM EST 17 g Given 04/23/2025 8:41 AM EST 17 g Given 04/22/2025 8:34 AM EST 17 g polyethylene glycol (Miralax) packet 17 g 17 g, Oral, 2 times daily, First dose (after last modification) on Sat04/24/25 at 2100, Until Discontinued, Routine potassium chloride CR (Klor-Con) ER tablet 20 mEq 20 mEq, Oral, Once, 1 dose, On Sat04/20/25 at 0930, Routine Given 04/20/2025 11:00 AM EST 20 mEq potassium chloride CR (Klor-Con) ER tablet 40 mEq 40 mEq, Oral, Once, 1 dose, On Sat04/20/25 at 0815, Routine Given 04/20/2025 9:24 AM EST 40 mEq Povidone-Iodine 5 % swab solution 1 Application Nasal, Once, 1 dose, On Sat04/21/25 at 1415, Routine Given 04/21/2025 2:06 PM EST 1 Application QUEtiapine (SEROquel) tablet 75 mg 75 mg, Oral, Nightly, First dose on Sat04/23/25 at 2100, Until Discontinued, Routine Given 04/25/2025 9:21 PM EST 75 mg Given 04/24/2025 9:41 PM EST 75 mg Given 04/23/2025 8:35 PM EST 75 mg ranolazine (Ranexa) 12 hr tablet 500 mg 500 mg, Oral, 2 times daily, First dose on Sat04/20/25 at 1300, Until Discontinued, Routine Given 04/26/2025 9:16 AM EST 500 mg Given 04/25/2025 9:29 PM EST 500 mg Given 04/25/2025 9:01 AM EST 500 mg rOPINIRole (Requip) tablet 2 mg 2 mg, Oral, Nightly, First dose on Sat04/20/25 at 2100, Until Discontinued Given 04/25/2025 9:20 PM EST 2 mg Given 04/24/2025 9:42 PM EST 2 mg Given 04/23/2025 8:35 PM EST 2 mg senna-docusate (Anna-Colace) 8.6-50 MG per tablet 1 tablet 1 tablet, Oral, Nightly, First dose on Sat04/19/25 at 2100, Until Discontinued, Routine Given 04/23/2025 8:35 PM EST 1 tablet Given 04/22/2025 8:52 PM EST 1 tablet Given 04/21/2025 10:22 PM EST 1 tablet senna-docusate (Anna-Colace) 8.6-50 MG per tablet 1 tablet 1 tablet, Oral, 2 times daily, First dose (after last modification) on Sat04/24/25 at 2100, Until Discontinued, Routine Given 04/26/2025 9:16 AM EST 1 tablet Given 04/25/2025 9:20 PM EST 1 tablet sodium chloride 0.9 % flush 10 mL 10 mL, Intravenous, Every 12 hours, First dose on Sat04/19/25 at 0650, Until Discontinued, Routine Given 04/26/2025 7:20 AM EST 10 mL Given 04/25/2025 5:59 PM EST 10 mL Given 04/25/2025 6:30 AM EST 10 mL sodium chloride 0.9 % flush 10 mL 10 mL, Intravenous, As needed, Starting on Sat04/19/25 at 0648, Until Sat04/26/25 at 1514, Routine, line care sodium chloride 0.9 % flush 10 mL 10 mL, Intravenous, Every 12 hours, First dose on Sat04/21/25 at 1415, Until Discontinued, Routine, Holding - Preprocedure Given 04/21/2025 2:0 6 PM EST 10 mL thiamine (Vitamin B-1) tablet 100 mg 100 mg, Oral, Daily, First dose on Sat04/23/25 at 0900, Until Discontinued, Routine Given 04/26/2025 9:15 AM EST 100 mg Given 04/25/2025 9:02 AM EST 100 mg Given 04/24/2025 8:11 AM EST 100 mg thiamine (Vitamin B-1) tablet 200 mg 200 mg, Oral, Every 8 hours, 6 doses, First dose on Sat04/20/25 at 1300, Last dose on Sat04/22/25 at 0500, STAT Given 04/22/2025 5:59 AM EST 200 mg Given 04/21/2025 10:20 PM EST 200 mg Given 04/21/2025 12:57 PM EST 200 mg topiramate (Topamax) tablet 50 mg 50 mg, Oral, Daily, First dose on Sat04/21/25 at 1230, Until Discontinued, Routine Given 04/26/2025 9:15 AM EST 50 mg Given 04/25/2025 9:01 AM EST 50 mg Given 04/24/2025 8:11 AM EST 50 mg traZODone (Desyrel) tablet 50 mg 50 mg, Oral, Nightly, First dose on Sat04/21/25 at 2100, Until Discontinued, Routine Given 04/25/2025 9:20 PM EST 50 mg Given 04/24/2025 9:42 PM EST 50 mg Given 04/23/2025 8:35 PM EST 50 mg Vancomycin HCl in NaCl (Vancocin) IVPB 1,000 mg 1,000 mg (rounded from 879 mg = 15 mg/kg 58.6 kg), Intravenous, Once, 1 dose, On Sat04/21/25 at 1415, at 250 mL/hr, STAT Given 04/21/2025 2:03 PM EST 1,000 mg 250 mL/hr venlafaxine XR (Effexor-XR) 24 hr capsule 75 mg 75 mg, Oral, Daily, First dose on Sat04/20/25 at 1300, Until Discontinued, Routine Given 04/26/2025 9:16 AM EST 75 mg Given 04/25/2025 9:01 AM EST 75 mg Given 04/24/2025 8:11 AM EST 75 mg documented in this encounter Active and Recently Administered Medications Times are shown in EST. Scheduled Medication Order 04/24/2025 04/25/2025 04/26/2025 acetaminophen (Tylenol) tablet 1,000 mg 1,000 mg, Oral, Every 6 hours scheduled, First dose on Sat04/19/25 at 0650, Until Discontinued, Routine 0512 (Given - Provider: David Reyes RN)1137 (Given - Provider: Doreen Villalobos RN)1706 (Given - Provider: Doreen Villalobos RN)2316 (Given - Provider: Robyn Clark RN) 0537 (Given - Provider: Robyn Clark, MAGDALENO)1112 (Given - Provider: Doreen Villalobos RN)1705 (Given - Provider: Doreen Villalobos RN) 0006 (Given - Provider: Robyn Clark RN)0700 (Given - Provider: Robyn Clark, MAGDALENO)1158 (Given - Provider: Shonda Pearson RN) atorvastatin (Lipitor) tablet 80 mg 80 mg, Oral, Daily, First dose on Sat04/20/25 at 1300, Until Discontinued 0810 (Given - Provider: Doreen Villalobos RN) 0901 (Given - Provider: Doreen Villalobos RN) 0915 (Given - Provider: Shonda Pearson RN) baclofen (Lioresal) tablet 10 mg 10 mg, Oral, 3 times daily, First dose (after last modification) on Sat04/22/25 at 0900, Until Discontinued, Routine 0811 (Given - Provider: Doreen Villalobos RN)1706 (Given - Provider: Doreen Villalobos RN)2142 (Given - Provider: Robyn Clark RN) 0902 (Given - Provider: Doreen Villalobos RN)1544 (Given - Provider: Doreen Villalobos RN)2120 (Given - Provider: Robyn Clark RN) 0915 (Given - Provider: Shonda Pearson RN) cariprazine (Vraylar) capsule 1.5 mg 1.5 mg, Oral, Daily, First dose on Sat04/22/25 at 1100, Until Discontinued, Routine 0811 (Given - Provider: Doreen Villalobos RN) 901 (Given - Provider: Doreen Villalobos RN) 09 (Given - Provider: Shonda Pearson RN) dicyclomine (Bentyl) tablet 20 mg 20 mg, Oral, 2 times daily, First dose on Sat04/21/25 at 1230, Until Discontinued, Routine 0810 (Given - Provider: Doreen Villalobos RN)2100 (Given - Provider: Robyn Clark RN) 900 (Given - Provider: Doreen Villalobos RN)2128 (Given - Provider: Robyn Clark RN) 915 (Given - Provider: Shonda Pearson RN) enoxaparin (Lovenox) syringe 30 mg 30 mg, Subcutaneous, 2 times daily, 50 doses, First dose on Sat04/21/25 at 1200, Last dose on Sat05/15/25 at 2100, Routine 0810 (Given - Provider: Doreen Villalobos RN)2141 (Given - Provider: Robyn Clark RN) 900 (Given - Provider: Doreen Villalobos RN)2121 (Given - Provider: Robyn Clark RN) 916 (Given - Provider: Shonda Pearson RN) famotidine (Pepcid) tablet 20 mg 20 mg, Oral, 2 times daily, First dose on Sat04/20/25 at 1300, Until Discontinued 0810 (Given - Provider: Doreen Villalobos RN)2141 (Given - Provider: Robyn Clark RN) 901 (Given - Provider: Doreen Villalobos RN)2119 (Given - Provider: Robyn Clark RN) 0916 (Given - Provider: Shonda Pearson RN) folic acid (Folvite) tablet 1 mg 1 mg, Oral, Daily, First dose on Sat04/19/25 at 0810, Until Discontinued, Routine 0811 (Given - Provider: Doreen Villalobos RN) 09 (Given - Provider: Doreen Villalobos RN) 0915 (Given - Provider: Shonda Pearson, MAGDALENO) Kenney powder 1 packet 1 packet, Oral, 2 times daily, First dose on Sat04/19/25 at 1430, Until Discontinued, Routine 0811 (Given - Provider: Doreen Villalobos RN)2100 (Not Given - Provider: Robyn Clark RN - Reason: Patient/family refused) 09 (Given - Provider: Doreen Villalobos RN)2099 (Not Given - Provider: Robyn Clark RN - Reason: Patient/family refused) 09 (Given - Provider: Shonda Pearson, MAGDALENO) magnesium sulfate IVPB 2 g (COMPLETED) 2 g, Intravenous, Once, 1 dose, On 04/24/25 at 0715, Routine 0815 (New Bag - Provider: Doreen Villalobos RN) metoprolol succinate XL (Toprol-XL) 24 hr tablet 12.5 mg 12.5 mg, Oral, Daily, First dose on Sat04/20/25 at 1300, Until Discontinued, Routine 0810 (Given - Provider: Doreen Villalobos RN) 09 (Given - Provider: Doreen Villalobos RN) 0915 (Given - Provider: Shonda Pearson RN) mometasone-formoterol (Dulera 200) 200-5 MCG/ACT inhaler 2 puff 2 puff, Inhalation, 2 times daily, First dose on Sat04/20/25 at 1300, Until Discontinued 0811 (Given - Provider: Doreen Villalobos RN)2099 (Given - Provider: Robyn Clark RN) 09 (Given - Provider: Doreen Villalobos RN)2125 (Given - Provider: Robyn Clark RN) 0917 (Given - Provider: Shonda Pearson, MAGDALENO) montelukast (Singulair) tablet 10 mg 10 mg, Oral, Nightly, First dose on Sat04/20/25 at 2100, Until Discontinued, Routine 2141 (Given - Provider: Robyn Clark RN) 2119 (Given - Provider: Robyn Clark RN) multivitamin tablet 1 tablet 1 tablet, Oral, Daily, First dose on 04/24/25 at 1115, Until Discontinued, Routine 1137 (Given - Provider: Doreen Villalobos RN) 09 (Given - Provider: Doreen Villalobos RN) 09 (Given - Provider: Shonda Pearson, MAGDALENO) mupirocin (Bactroban) 2 % ointment 1 Application (COMPLETED) Each Nostril, 2 times daily, 10 doses, First dose on Sat04/21/25 at 0900, Last dose on Sat04/25/25 at 2100, Routine 0811 (Given - Provider: Doreen Villalobos RN)2141 (Given - Provider: Robyn Clark RN) 907 (Given - Provider: Doreen Villalobos RN)2119 (Given - Provider: Robyn Clark RN) polyethylene glycol (Miralax) packet 17 g (CANCELED) 17 g, Oral, Daily, First dose on Sat04/19/25 at 0900, Until Discontinued, Routine 08 (Given - Provider: Doreen Villalobos RN) polyethylene glycol (Miralax) packet 17 g 17 g, Oral, 2 times daily, First dose (after last modification) on 04/24/25 at 2100, Until Discontinued, Routine 2099 (Not Given - Provider: Robyn Clark RN - Reason: Patient/family refused) 09 (Not Given - Provider: Doreen Villalobos RN - Reason: Hold for condition: must add comment - Comment: recent bms)2099 (Not Given - Provider: Robyn Clark RN - Reason: Patient/family refused) 09 (Not Given - Provider: Shonda Pearson RN - Reason: Patient/family refused) QUEtiapine (SEROquel) tablet 75 mg 75 mg, Oral, Nightly, First dose on Sat04/23/25 at 2100, Until Discontinued, Routine 2140 (Given - Provider: Robyn Clark RN) 2120 (Given - Provider: Robyn Clark RN) ranolazine (Ranexa) 12 hr tablet 500 mg 500 mg, Oral, 2 times daily, First dose on Sat04/20/25 at 1300, Until Discontinued, Routine 0811 (Given - Provider: Doreen Villalobos RN)2100 (Given - Provider: Robyn Clark RN) 09 (Given - Provider: Doreen Villalobos RN)2128 (Given - Provider: Robyn Clark RN) 0916 (Given - Provider: Shonda Pearson, MAGDALENO) rOPINIRole (Requip) tablet 2 mg 2 mg, Oral, Nightly, First dose on Sat04/20/25 at 2100, Until Discontinued 2141 (Given - Provider: Robyn Clark RN) 2119 (Given - Provider: Robyn Clark RN) senna-docusate (Anna-Colace) 8.6-50 MG per tablet 1 tablet 1 tablet, Oral, 2 times daily, First dose (after last modification) on Sat04/24/25 at 2100, Until Discontinued, Routine 2099 (Not Given - Provider: Robyn Clark RN - Reason: Patient/family refused) 09 (Not Given - Provider: Doreen Villalobos RN - Reason: Hold for condition: must add comment - Comment: recent bms)2119 (Given - Provider: Robyn Clark RN) 0916 (Given - Provider: Shonda Pearson RN) sodium chloride 0.9 % flush 10 mL(Linked Group 1) 10 mL, Intravenous, Every 12 hours, First dose on Sat04/19/25 at 0650, Until Discontinued, Routine 0625 (Not Given - Provider: David Reyes RN - Reason: Hold for condition: must add comment - Comment: IV flushed at 0520)184 (Given - Provider: Doreen Villalobos RN) 0630 (Given - Provider: Robyn Clark RN)1759 (Given - Provider: Doreen Villalobos RN) 0720 (Given - Provider: Shonda Pearson RN) thiamine (Vitamin B-1) tablet 100 mg 100 mg, Oral, Daily, First dose on Sat04/23/25 at 0900, Until Discontinued, Routine 0811 (Given - Provider: Doreen Villalobos RN) 09 (Given - Provider: Doreen Villalobos RN) 0915 (Given - Provider: Shonda Pearson RN) topiramate (Topamax) tablet 50 mg 50 mg, Oral, Daily, First dose on Sat04/21/25 at 1230, Until Discontinued, Routine 0811 (Given - Provider: Doreen Villalobos RN) 09 (Given - Provider: Doreen Villalobos RN) 0915 (Given - Provider: Shonda Pearson RN) traZODone (Desyrel) tablet 50 mg 50 mg, Oral, Nightly, First dose on Sat04/21/25 at 2100, Until Discontinued, Routine 2141 (Given - Provider: Robyn Clark RN) 2119 (Given - Provider: Robyn Clark RN) venlafaxine XR (Effexor-XR) 24 hr capsule 75 mg 75 mg, Oral, Daily, First dose on Sat04/20/25 at 1300, Until Discontinued, Routine 08 (Given - Provider: Doreen Villalobos RN) 900 (Given - Provider: Doreen Villalobos RN) 0916 (Given - Provider: Shonda Pearson RN) PRN Medication Order 04/24/2025 04/25/2025 04/26/2025 hydrOXYzine pamoate (Vistaril) capsule 25 mg 25 mg, Oral, Every 8 hours PRN, Starting on Sat04/20/25 at 1152, Until Sat04/26/25 at 1514, Routine, anxiety 2119 (Given - Provider: Robyn Clark RN) ondansetron ODT (Zofran-ODT) disintegrating tablet 4 mg 4 mg, Oral, Every 6 hours PRN, Starting on Rosalie 04/22/25 at 1159, Until Sat04/26/25 at 1514, Routine, nausea, vomiting oxyCODONE (Roxicodone) immediate release tablet 10 mg(Linked Group 2) 10 mg, Oral, Every 4 hours PRN, Starting on Sat04/21/25 at 2128, Until Sat04/26/25 at 1514, Routine, severe pain 1352 (See Alternative - Provider: Doreen Villalobos RN)2318 (See Alternative - Provider: Robyn Clark RN) 2119 (Given - Provider: Robyn Clark RN) 1215 (Given - Provider: Shonda Pearson RN - Comment: or hour long transport home) oxyCODONE (Roxicodone) immediate release tablet 5 mg(Linked Group 2) 5 mg, Oral, Every 4 hours PRN, Starting on Sat04/21/25 at 2128, Until Sat04/26/25 at 1514, Routine, Moderate/Severe Pain > or =3: CPOT; > or =4: FLACC, PAINAD, NPASS, NRS, Marin-Menendez Faces; > or =5: DVPRS, NIPS 1352 (Given - Provider: Doreen Villalobos RN)2318 (Given - Provider: Robyn Clark RN) 2119 (See Alternative - Provider: Robyn Clark RN) 1215 (See Alternative - Provider: Shonda Pearson RN) sodium chloride 0.9 % flush 10 mL(Linked Group 1) 10 mL, Intravenous, As needed, Starting on Sat04/19/25 at 0648, Until Sat04/26/25 at 1514, Routine, line care Linked Groups Order Group 1: Insert peripheral IV (CANCELED) Once, On Sat04/19/25 at 0649, For 1 occurrence And Saline lock IV (CANCELED) Once, On Sat04/19/25 at 0649, For 1 occurrence And sodium chloride 0.9 % flush 10 mLJump to med 10 mL, Intravenous, Every 12 hours, First dose on Sat04/19/25 at 0650, Until Discontinued, Routine And sodium chloride 0.9 % flush 10 mLJump to med 10 mL, Intravenous, As needed, Starting on Sat04/19/25 at 0648, Until Sat04/26/25 at 1514, Routine, line care Group 2: oxyCODONE (Roxicodone) immediate release tablet 5 mgJump to med 5 mg, Oral, Every 4 hours PRN, Starting on Sat04/21/25 at 2128, Until Sat04/26/25 at 1514, Routine, Moderate/Severe Pain > or =3: CPOT; > or =4: FLACC, PAINAD, NPASS, NRS, Marin-Menendez Faces; > or =5: DVPRS, NIPS Or oxyCODONE (Roxicodone) immediate release tablet 10 mgJump to med 10 mg, Oral, Every 4 hours PRN, Starting on Sat04/21/25 at 2128, Until Sat04/26/25 at 1514, Routine, severe pain documented in this encounter Additional Health Concerns Assessment Noted Time A Body Mass Index follow-up plan has been documented for the patient 04/26/2025 11:27 AM EST documented as of this encounter Care Teams Band Builder Relationship Specialty Start Date End Date Tho Bowden MD [address] [place] [id number] PCP - General 10/28/20 documented as of this encounter
--- OUTSIDE RECORDS SUMMARY | 2025-04-20 23:59 | XMS_ITS | Encounter Summary ---
Author Organization Healthcare Address [address] [place] [address] Care Team Providers Care Trousseau Consultant Name Role Phone Tho Bowden MD Primary Care Provider [phone] Reason for Visit * Auth/Cert (Routine) Specialty Diagnoses / Procedures Referred By Contac t Referred To Contact Diagnoses Polypharmacy Fall, initial encounter 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, initial encounter Fall at home, initial encounter Altered mental status, unspecified altered mental status type fall, periprosthetic left distal femur fracture Yaneli Trimble MD [address] [facility] [address] [place] [address] Phone: tel: fax: [facility] [address] [place] [address] Phone: tel: Referral ID Status Reason Start Date Expiration Date Visits Re quested Visits Authorized [id number] 1 1 Encounter Details Date Type Department Care Team (Late st Contact Info) Description 04/20/2025 11:59 PM EST Anesthesia Event [facility] [address] [place] [id number] Olimpia Wan PA [address] [place] [address] Yasir Juarez MD [address] [place] [address] Anesthesia Record Procedure Summary Procedure Name Responsible Anesthesiologist Anesthesia Start Time Anesthesia Stop Time ORIF, FRACTURE, FEMUR, DISTAL (Left: Leg Upper) Events No events on file. Meds * Agents No agents on file. * Blood No blood administrations on file. Lines, Drains, and Airways Type Details Placement Removal Wound 04/21/25; 153; Yes; Surgical; Closed Surgi; Leg; Anterior, Left, Upper 04/21/25 1530 by Mandy Benedict RN documented in this encounter Social History Tobacco Use Types Packs/Day Years Used Date Smoking Tobacco: Never Alcohol Use Standard Drinks/Week Comments Never 0 [...] any time in the past 12 m [facility], were you homeless or living in a usp (including now)? No 04/19/2025 [facility] Utilities Answer Date Recorded In the past 12 months has th e electric, gas, oil, or water company threatened to shut off services in your home? No 04/19/2025 Comments Unknown Sex and Gender Information Value Date Recorded Sex Assigned at Not on file Legal Sex Female 6:39 PM EDT Gender Identity Not on file Sexual Orientation Not on file documented as of this encounter Functional Status * Calculated C-SSRS Risk Score (Lifetime/Recent) Answer Date of Assessment Author No Risk Indicated 04/20/2025 9:15 AM Devika Godfrey RN * Question Answer Date of Assessment Author 1. Wish to be (Past 1 Month) No 025 9:15 AM Devika Godfrey, MAGDALENO 2. Non-Specific Active Suici sangita Thoughts (Past 1 Month) No 04/20/2025 9:15 AM Devika Godfrey , MAGDALENO 6. Suicidal Behavior (Lifetime) No 9:15 AM Devika Godfrey, MAGDALENO documented as of this encounter Miscellaneous Notes * Anesthesia Preprocedure Evaluation - Olimpia Wan PA - 04/20/2025 6:34 AM EST Images from the original note were not included. Procedure Information Date/Time: 04/20/25 1320 Procedure: ORIF, FRACTURE, FEMUR, DISTAL (Left: Leg Upper) - Supine, pancho, sterile traction avail, c-arm, ortho trauma tool box, ortho soft tissue, styker distal femur plates Location: [facility] Surgeons: Ulices Gale MD HPI Parul Leone is a 64 y.o. female with body mass index is 22.89 kg/m??. who presents with Fall at home, initial encounter (mechanical fall on 04/17/2025, walking to her home. She fell into a hole in the yard), presented also with new aphasia, concerning for stroke. Neuro consulted, MRI pending. Nowfor above procedure PMH: HTN, migraines, osteopenia, arthritis, CAD s/p stent (on Plavix), Heart failure pEF, HLD, asthma/ COPD, urge incontinence, chronic back pain, vit D deficiency, s/p gastric bypass, depression, RLS, sleep disordered breathing, IBS ECHO 04/20: LVEF 64%, no significant valvular abnormalities. 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 Type & Screen Expires: 04/22 Lab Results Component Value Date ABO O Positive 04/19/2025 ALLERGIES Allergies[1] MEDICATIONS Outpatient Current Outpatient Medications Medication Instructions alendronate (FOSAMAX) 70 mg, Every 7 days atorvastatin (LIPITOR) 80 mg, Daily baclofen (LIORESAL) 10 mg, 3 times daily cariprazine (VRAYLAR) 1.5 mg, Daily clopidogrel (PLAVIX) 75 mg, Daily colestipol (COLESTID) 1 g, Daily dicyclomine (BENTYL) 20 mg, 2 times daily Emgality 120 mg, Every 30 days famotidine (PEPCID) 40 mg, Daily FLUoxetine (PROZAC) 40 mg, 2 times daily fluticasone (Flonase) 50 MCG/ACT nasal spray 1 spray, Daily fluticasone-salmeterol (Advair Diskus) 500-50 MCG/ACT diskus inhaler 1 puff, 2 times daily furosemide (LASIX) 80 mg, Daily HYDROcodone-acetaminophen (Cambridge) 5-325 MG tablet 5 mg of hydrocodone, Oral, 2 times daily PRN hydrOXYzine pamoate (VISTARIL) 25 mg, 3 times daily metFORMIN (GLUCOPHAGE) 1,000 mg, 2 times daily with meals metoprolol succinate XL (TOPROL-XL) 12.5 mg, Daily montelukast (SINGULAIR) 10 mg, Nightly Nurtec 75 mg, As needed omeprazole (PRILOSEC) 40 mg, Daily oxybutynin XL (DITROPAN-XL) 10 mg, Daily Ozempic (2 MG/DOSE) 2 mg, Every 7 days potassium chloride CR (Klor-Con M20) 20 MEQ ER tablet 20 mEq, Daily QUEtiapine (SEROQUEL) 50 mg, Nightly ranolazine (RANEXA) 500 mg, 2 times daily rOPINIRole (REQUIP) 2 mg, Nightly topiramate 50 mg, Nightly traZODone (DESYREL) 150 mg, Nightly venlafaxine XR (EFFEXOR-XR) 75 mg, Daily Scheduled Current Scheduled Medications[2] PRNs Current PRN Medications[3] SURGICAL HX: Surgical History[4] SOCIAL HX: Social History[5] OBJECTIVE DATA Blood pressure 103/70, pulse 96, temperature 36.8 ??C (98.2 ??F), resp. rate 16, height 1.6 m (5' 2.99 ), weight 58.6 kg (129 lb 3 oz), SpO2 99%. LABS Lab Results Component Value Date WBC 10.28 04/20/2025 HGB 11.9 04/20/2025 HCT 33.8 (L) 04/20/2025 MCV 90 04/20/2025 PLT 232 04/20/2025 Lab Results Component Value Date CALCIUM 8.4 (L) 04/20/2025 BUN 12 04/20/2025 CREATININE 0.55 (L) 04/20/2025 BCR 22 04/20/2025 NA 140 04/20/2025 K 3.4 (L) 04/20/2025 CL 107 04/20/2025 CO2 25 04/20/2025 ANIONGAP 8 04/20/2025 INR Date Value Ref Range Status 04/20/2025 1.0 0.9 - 1.1 Final Lab Results Component Value Date HGBA1C 5.3 04/19/2025 GLUCOSE 105 (H) 04/20/2025 ABG No results found for: PHART , FZX5COB , PO2ART , SO2ART , BEART , VUC5CJF , HCTART , SODIUMART , POTASSIUMART , POCTCL , POCGLU , IONCALART , LACTATE No results found for: PH , PCO2 , PO2 , C2AHICYD , BASEEXC , HCTSYR , KSYR , CLSYR , GLUSYR , CAION , LACTATE EKG Encounter Date: 04/18/25 EKG now - STAT (adult) Result Value EKG DIAGNOSIS CLASS Normal Ventricular Rate 87 Atrial Rate 87 OR Interval 140 QRSD Interval 94 QT Interval 388 QTC Interval 466 P [place] 70 R [place] 47 T Wave [place] 69 Diagnosis Normal sinus rhythm Diagnosis Normal ECG Diagnosis Diagnosis Confirmed by Dennis Castaneda ([id number]) on 04/19/2025 9:10:21 AM *Note: Due to a large number of results and/or encounters for the requested time period, some results have not been displayed. A complete set of results can be found in Results Review. ECHO Echo, Adult Transthoracic Complete Result Date: 04/20/2025 Left Ventricle: Based on the linear dimension [...] reasonably well interrogated with 2D imaging and/or Dopplerassessment and no significant valve regurgitation or stenosis is seen. Pericardium: No pericardial effusion. There is no recent study available for direct [id number] comparison. ECHO 06/2024 OSH (in media) Normal systolic function, LVEF 55%, normal diastolic function Mild RV dilation. Mild biatrial dilation. No significant valve disease. [facility] 07/28/24: (in media) Widely patent proximal [...] View Image Impression No acute intracranial abnormality. Physical Exam Airway Mallampati: I Mouth opening: normal TM distance: >3 FB Cardiovascular Rhythm: regular Rate: normal Dental Pulmonary Breath sounds clear to auscultation Neurological (+) altered mental status Skin Musculoskeletal (+) fracture Extremities Anesthesia Plan ROS Anesthesia: history of previous anesthesia. Does not have a history of anesthetic complications and PONV. Anesthesia ROS additional comments: sleep disordered breathing Cardiovascular: CAD, CHF and hyperlipidemia. hypertension: Cardio additional comments: Pt follows with Dr. Gonzales Maintenance Supervisor [facility] at [facility], last seen 10/2024 and had echo 06/2024 (will upload to [employer]). She was seen 11/10/24 for cardiac clearance forcolonoscopy. Hx of CAD s/p NATALIA to LAD , hx diastolic dysfunction, hx LHC 07/28/24 with Widely patentproximal LAD stent, normal EF, elevated LVEDP. At the time of eval pt demonstrated functional capacity >4 METs and was stable from a cardiovascular standpoint. Patient is considered acceptable operative risk, this risk is non modifiable at this time and is unlikely to be further mitigated by additional per-operative cardiac workup. Pt may undergo surgery without additional cardiac testing Per Dr Gonzales. . Respiratory: asthma: COPD: Neurological: headaches. Neuro additional comments: Aphasia Gastrointestinal: GERD:Does not have cirrhosis. GI/ additional comments: vit D deficiency, s/p gastric bypass [1] Allergies Allergen Reactions Lactose Intolerance (Gi) Diarrhea and Vomiting [2] acetaminophen, 1,000 mg, Oral, q6h OLENA folic acid, 1 mg, Oral, Daily Kenney, 1 packet, Oral, BID methocarbamol, 500 mg, Oral, q8h polyethylene glycol, 17 g, Oral, Daily senna-docusate, 1 tablet, Oral, Nightly Insert peripheral IV, , , Once AND Saline lock IV, , , Once AND sodium chloride, 10 mL, Intravenous, q12h AND sodium chloride, 10 mL, Intravenous, PRN [3] PRN medications: oxyCODONE, Insert peripheral IV AND Saline lock IV AND sodium chlorideAND sodium chloride [4] Past Surgical History: Procedure Laterality Date CATH STENT PLACEMENT/ CATH PLACEMENT OF STENT N/A Cath Stent Placement from [facility] CHOLECYSTECTOMY N/A Cholecystectomy from [facility] GASTRIC BYPASS N/A Gastric Surgery from [facility] HYSTERECTOMY N/A Hysterectomy from [facility] TUBAL LIGATION N/A Tubal Ligation from [facility] [5] Social History Tobacco Use Smoking status: Never Substance Use Topics Alcohol use: Never documented in this encounter Plan of Treatment Upcoming Encounters Date Type Department Care Team (Late st Contact Info) Description 06/21/2025 9:30 AM EST Appointment [facility] Radiology [address] [place] [address] 06/21/2025 10:10 AM EST Office Visit [facility] Orthopaedic Surgery & Sports Medicine [address] [place] [address] Wai Motley MD [address] [place] [address] documented as of this encounter Visit Diagnoses Not on filedocumented in this encounter Additional Health Concerns Assessment Noted Time A Body Mass Index follow-up plan has been documented for the patient 04/26/2025 11:27 AM EST documented as of this encounter Care Teams Trousseau Consultant Relationship Specialty Start Date End Date Tho Bowden MD [address] [place] [address] PCP - General 10/28/20 documented as of this encounter
--- OUTSIDE RECORDS SUMMARY | 2025-04-21 14:10 | XMS_ITS | Encounter Summary ---
Author Organization Healthcare Address [address] [place] [address] Care Team Providers Care Charge Preparation Technician Name Role Phone Tho Bowden MD Primary Care Provider [phone]- [phone] Reason for Visit * Reason Comments Fall [...] femur fracture Yaneli Trimble MD [address] [facility] [address] [place] [address] Phone: tel: fax: P[facility] A Inpatient [address] [place] [address] Phone: tel: Referral ID Status Reason Start Date Expiration Date Visits Re quested Visits Authorized [id number] 1 1 Encounter Details Date Type Department Care Team (Late st Contact Info) Description 04/21/2025 2:10 PM EST - 04/21/2025 6:20 PM EST Surgery [facility] A OPERATING ROOM [address] [place] [address] Wai Motley MD [address] [facility] [address] [place] [address] ORIF, FRACTURE, FEMUR, DISTAL [05119 (CPT )] Surgery Details Date/Time Status Location OR Service Patient Class Case Class Case Type Trauma Case? 04/21/2025 2:10 PM Posted [facility] OR Orthopedic Surgery Inpatient E-Electi ve Panel 1 Procedure LRB Anes Op Region Wound Class Comments ORIF, FRACTURE, FEMUR, DISTAL Left General Leg Upper Class I/ Clean Supine, pancho, sterile traction avail, triangles avail, c-arm, ortho trauma tool box, ortho soft tissue, globus distal femur plates Surgeon Surgeon Role Service Panel Toribio Hernadez MD Resident - Assisting 1 Wai Motley MD Primary Orthopedic Surgery 1 Aleisha Trujillo MD Resident - Assisting 1 George Morejon MD Resident - Assisting 1 Special Needs Supine, pancho, sterile traction avail, triangles avail, c-arm, ortho trauma tool box, ortho soft tissue, globus distal femur plates documented in this encounter Social History Tobacco [...] any time in the past 12 m [facility], were you homeless or living in a intermediate (including now)? No 04/19/2025 [facility] Utilities Answer Date Recorded In [...] Sign Reading Time Taken Comments Blood Pressure 113/85 04/21/2025 6:15 PM EST Pulse 89 04/21/2025 6:15 PM EST Temperature 36.9 C (98.5 F) 04/21/2025 5:50 PM EST Respiratory Rate 15 04/21/2025 6:15 PM EST Oxygen Saturation 96% 04/21/2025 6:15 PM EST Inhaled Oxygen Concentration - - Weight 58.5 kg (129 lb) 04/21/2025 1:47 PM EST Height 160 cm (5' 3 ) 04/21/2025 1:47 PM EST Body Mass Index 24.76 04/21/2025 1:47 PM EST documented in this encounter Functional Status * AUDIT-C Score Answer Date of Assessment Author 0 04/19/2025 12:59 PM EST Audrey Molina RN * Question Answer Date of Assessment [...] 1 Month) No 025 9:15 AM Devika Godfrey RN 2. Non-Specific Active Suici sangita Thoughts (Past 1 Month) No 04/20/2025 9:15 AM Devika Godfrey RN 6. Suicidal Behavior (Lifetime) No 9:15 AM Devika Godfrey RN documented as of this encounter Discharge [...] James @ Orthopaedic Surgery & Sports Medicine; [facility], [address] [facility], First Floor, Wing C, [address], [place] [address], # [phone]. Neurology: Follow up with Neurology [address] [place] [address] [address], First Floor, [place] [address]. The clinic will call you with an appointment. [facility] (Saturday clinic) as needed; [address] [place] [address] Clinic 1st [place] [address] Questions or Concerns and Appointments If there are questions or concerns after discharge from the hospital, please call [phone] and ask for Blue Surgery Nurse. Working hours are Saturday - Saturday 8:00 AM to 4:00 PM. After hours, weekends and holidays please call [phone] and ask for the resident chaperone for Blue Surgery. For appointments please call [phone]. Medication requests should be made between the [...] the skin every 30 days. HYDROcodone-acetami nophen ([place]) 5-325 MG tablet Take 1 tablet by [...] day for 40 doses. 12 mL 04/26/2025 oxyCODONE (Roxicodone) 5 MG immediate release tablet Take 1 tablet by mouth every 6 hours as needed for severe pain for up to 3 days. 10 tablet 04/26/2025 5 documented as of this encounter Miscellaneous Notes * Shonda Redman, RN - 04/26/2025 11:26 AM EST Images [...] the dressing ? Dressing feels too loose Shonda Myers RN - 04/26/2025 11:26 AM EST Images from the original note were not included. [address] Discharge Instructions: Internal Fixation of a Fractured [...] rash. Last Reviewed Date: 2024 00:00:00 ?? [id number] [employer]. All rights reserved. This information is not intended as a substitute for professional medical care. Always follow your healthcare professional's instructions. * Ashley Almodovar - Shonda Pearson RN - 04/26/2025 11:26 AM EST Images from the original note were not included. [id number] Enoxaparin Injection IMPORTANT WARNING: If you have [...] be awakened, immediately call emergency services at [phone]. What OTHER INFORMATION should I know? Keep [...] of all of the prescription and nonprescription (dnua-kig-eedfftz) medicines, vitamins, minerals, and dietary supplements you [...] or pharmacist about specific clinical use. The [employer] represents that the information provided hereunder was formulated with a reasonable standard of care, and in conformity with professional standards in the field. The [employer] makes no representations or warranties, express or implied, including, but not limited to, any implied warranty of merchantability and/or fitness for a particular purpose, with respect to such information and specifically disclaims all such warranties. Users are advised that decisions regarding drug therapy are complex medical decisions requiring the independent, informed decision of an appropriate health adult live in caregiver, and the information is provided for informational purposes only. The entire monograph for a drug should be reviewed for a thorough understanding of the drug's actions, uses and side effects. The [employer] does not endorse or recommend the use of any drug.The information is not a substitute for medical care. AHFS?? Patient Medication Information?. ?? Copyright, 2023. The [employer]??, [address] [facility], [address], [place], [place]. All Rights Reserved. Duplication for commercial use must be authorized by [facility]. Selected Revisions: January 04, 2024. AHFS?? Patient Medication Information?. ?? Copyright, 2024 * [facility] - Shonda Pearson RN - 04/26/2025 11:26 AM EST Images from the original note were not included. 18013 Femur Fracture What is a femur fracture? [...] more detailed imaging of a specific fracture. H * Ashley MartinezRENAE - Shonda Pearson RN - 04/26/2025 11:26 AM EST Images from the original note were not included. 1087 Oxycodone Oral Tablet, Immediate Release Brand Names: Oxaydo, Roxicodone What is this medicine? Oxycodone (oa-w-CKI-done) is an opioid pain reliever. It is used to treat moderate to severe pain. What should I tell my health care provider before I take this medicine? They need to know if you have any of these conditions: ? Falls's disease ? Brain tumor or head injury [...] a special medication guide each time you turkey picker this medicine. ? Overdosage: Taking too much [...] should report to your doctor or health adult live in caregiver as soon as possible: ? allergic reactions [...] attention (report to your doctor or health adult live in caregiver if they continue or are bothersome): ? constipation ? dry mouth ? itching ? nausea, vomiting ? upset stomach This list may not describe all possible side effects. Call your doctor for medical advice about side effects. You may report side effects to FDA at 4-648-HKC-2381. Where should I keep my medicine? This [...] location. To find a disposal location, visit [employer]/[facility] / [facility]/[place]. If you cannot take unused medicine to a proper location, you can mix the medicine with coffee grounds or margo litter and dispose of in the normal trash. Your doctor may also give you a special disposal pouch for this medicine. You can also flush the medicine down the toilet. * [facility] - Shonda Pearson RN - 04/26/2025 11:26 [...] to dispose of used syringes. * [facility] - Shonda Pearson RN - 04/26/2025 11:25 [...] controlled substances: ? Drug Enforcement Agency (KATHY): http://www.deadiversion.FireDrillMeoCardiac Insight.gov/drug_disposal/takeback/index.htm ? National Association of Drug Diversion Investigators (NADDI): http://rxdrugdropbox.org/ ? [place] Office of Drug Control Policy: http://odcp.va.gov/Prescription+Drug+Drop+Box+Sites.htm Are there concerns about or ? ? [...] look blue or purple What is a [facility] report? TERELL is a system that tracks [...] the dispenser who reported the information to [facility]. If the dispenser agrees that the information [...] back pain Resume home Baclofen Hold home [place] in light of acute fx and additional [...] name and Address: Tho Bowden MD [address] [facility] / [place] [address] Referring provider name and address: Emerson Mai MD [address] [place] [address] Chief Concern, Brief History of Present Illness, [...] James @ Orthopaedic Surgery & Sports Medicine; [facility], [address] [place] [address], First Floor, Wing C, [address], [place] [address], # [phone]. Neurology: Follow up with Neurology [address] [place] [address] [address], [facility], [place] [address]. The clinic will call you with an appointment. [facility] (Saturday clinic) as needed; [address] [place] [address] 1st [place] [address] Questions or Concerns and Appointments If there are questions or concerns after discharge from the hospital, please call [phone] and ask for Blue Surgery Nurse. Working hours are Saturday - Saturday 8:00 AM to 4:00 PM. After hours, weekends and holidays please call [phone] and ask for the resident chaperone for Blue Surgery. For appointments please call [phone]. Medication requests should be made between the [...] you to start again. Commonly known as: [place] Take 1 tablet by mouth 2 times [...] Your Medications These medications were sent to [facility] - [place], [place] - [address], [facility] [address] acetaminophen 500 MG tablet enoxaparin 30 MG/0.3ML [...] Admission: Not Applicable Admit to [facility] Closed fracture of left femur Present [...] Admission: Yes Resume home Baclofen Hold home [place] in light of acute fx and additional [...] Provider Department Center 05/04/2025 8:30 AM Robina James, [facility] Pertinent Physical Exam At Time of Discharge [...] Flowsheets (Taken 04/25/2025 1218 by Doreen Villalobos, MAGDALENO) Progress: improving Plan of Care Reviewed With: [...] back pain Resume home Baclofen Hold home [place] in light of acute fx and additional [...] days Lab Units 04/25/25 0535 04/24/25 0520 04/22/25 0325 HEMOGLOBIN g/dL 6.8* 7.3* 10.4* HEMATOCRIT % [...] Admission: Not Applicable Admit to [facility] Closed fracture of left femur Present [...] Admission: Yes Resume home Baclofen Hold home [place] in light of acute fx and additional in-patient narcotics IBS (irritable bowel syndrome) Present on Admission: Yes Resuming home medications as able Bowel regimen as appropriate Urge incontinence Present on Admission: Yes In the setting of concern for polypharmacy, hold oxybutynin T2DM (type 2 diabetes mellitus) Present on Admission: Yes Take Metformin at home, unclear diagnosis A1c 5.3, SSI, CC2 in-patient Mood disorder ([facility]) Present on Admission: Yes Known history continue [...] appropriate * Assessment & Plan Note - Etat Jimenez APRN - 04/24/2025 12:59 PM EST [...] back pain Resume home Baclofen Hold home [place] in light of acute fx and additional [...] 12:59 PM EST Associated Problem(s): Mood disorder (CMS/HCC) [...] - 04/24/2025 12:48 PM EST 04/24/25 Parul Meyerp is a 64 y/o F w/ PMHx [...] Airway None Output by Drain (mL) 04/22/25 07 - 04/22/25 18504/22/25 1900 - 04/23/25 0659 04/23/25 07 - 04/23/25 18504/23/25 1900 - 04/24/25 0659 04/24/25 07 - 04/24/25 1248 Patient has no LDAs [...] from last 7 days Lab Units 04/24/25 0504/22/2532404/20/25147 HEMOGLOBIN g/dL 7.3* 10.4* 11.9 HEMATOCRIT % 21.4* 31.2* 33.8* INR Results from last 7 days Lab Units 04/20/25 0148 04/19/25 014 INR 1.0 1.0 Cr Results from last 7 days Lab Units 04/24/25 0504/22/2532404/20/25147 CREATININE mg/dL 0.51* 0.48* 0.55* Medications reviewed. Vital signs reviewed. Labs reviewed. Radiography reviewed. Assessment & Plan Fall at home, initial encounter Present on Admission: Not Applicable Admit to [facility] Closed fracture of left femur Present on [...] Admission: Yes Resume home Baclofen Hold home [place] in light of acute fx and additional [...] Note Parul Leone 64 y.o. female CSN: [id number] Admission: 04/18/2025 10:23 PM Primary Problem: Fall at home, initial encounter Anticipated Discharge Date: tbd Medically Ready for Discharge: Anticipated Today Additional Comments CM contacted to assist with discharge HHPT/OT and DME. Referral sent to [facility] for RW to be delivered to the bedside before discharge. [facility] accepted and will call patient to start [...] * Assessment & Plan Note - Etta Jimenze APRN - 04/23/2025 4:02 PM EST Associated [...] back pain Resume home Baclofen Hold home [place] in light of acute fx and additional [...] 4:02 PM EST Associated Problem(s): Mood disorder ([facility]) Known history 04/23: re-start home Seroquel @ [...] Edited by: Etta Jimenez APRN at 04/23/2025 7909 Relevant review of systems was obtained as [...] by Drain (mL) 04/21/25 0700 - 04/21/25 18504/21/25 1900 - 04/22/25 0659 04/22/25 07 - 04/22/25 1859 04/22/25 1900 - 04/23/25 [...] Present on Admission: Not Applicable Admit to [facility]5 Closed fracture of left femur Present on [...] Admission: Yes Resume home Baclofen Hold home [place] in light of acute fx and additional [...] Trauma Clinic on 05/04 Disposition: Admitted to [facility] -- Sean Hay MD Orthopedic Surgery PGY-1 [facility] Personal Pager: [phone] Orthopaedic Trauma Service Pager: [phone] Orthopaedic Recon/Spine/Foot and Ankle Service Pager: [phone] Cosigned by Wai Motley MD at 04/24/2025 [...] Note Parul Leone 64 y.o. female CSN: [id number] Admission: 04/18/2025 10:23 PM Primary Problem: Fall [...] acute rehab, and has been referred to [facility]. SILVIO spoke with liaison Jing this date, who will assess the pt. Pt pending post-op PT/OT updates. No further SW concerns identified [...] back pain Resume home Baclofen Hold home [place] in light of acute fx and additional [...] Present on Admission: Not Applicable Admit to T5 Closed fracture of left femur Present on [...] Admission: Yes Resume home Baclofen Hold home [place] in light of acute fx and additional [...] ED. Participants in Care Family/Caregiver Present: No [employer]: Not Applicable Presentation Oxygen Therapy: None (Room air) Lines and Tubes: Intravenous access Pre-Session: Supine, Head of bed elevated, Lines intact Pre-Session Comments: RN and pt agreeable to session. Post-Session: Sitting in chair, RN notified, Call light in reach, Chair alarm, Lines intact Post-Session Comments: All needs within immediate reach. Left with all source analyst. Precautions Left Lower Extremity Weight Bearing [...] Mobility Bed Mobility Exam: Scooting/Bridging Level of [place]: Contact guard Physical/Nonphysical Assist: Set-up required, Verbal Cues Assistive Device: Bed rails Bed Mobility Exam: Supine to Sit Level of [place]: Contact guard (Patient denied adamently when asked if she needed support forLLE. Patient required extra time due to pain and wanting to move herself. Used RLE to move LLE.) Physical/Nonphysical Assist: Set-up required, Verbal Cues, HOB elevated Transfers Transfer Exam: Sit to stand Level of [place]: Maximum assist (25% patient's effort) (Patient mentioned being nauseous after sit to stand.) Physical/Nonphysical Assist: Set-up required, Nonverbal cues (demo/gestures), Verbal Cues Assistive Device: Hand held assist Transfer Exam: Stand to Sit Level of [place]: Maximum assist (25% patient's effort) Physical/Nonphysical Assist: Set-up required, Nonverbal cues (demo/gestures), Verbal Cues, Additional assist utilized for safety Assistive Device: Hand held assist Transfer Exam: Bed to Chair/Chair to Bed Level of [place]: Maximum assist (25% patient's effort) (Patient needed [...] upper extremity support, Left upper extremity support (BIG DATA ENGINEER) Static Standing-Level of Assistance: Maximum assistance (due to pain and fatigue) Static Standing - Interventions: Patient unable to stand >10secs due to pain. Dynamic Standing Balance Dynamic Standing-Balance Support: Right upper extremity support, Left upper extremity support (BIG DATA ENGINEER X2) Dynamic Standing-Balance: Lateral weight shifts Dynamic Standing Level of Assistance: Maximum assistance Assessment Patient now s/p ORIF LLE (11/5) with updated WBAT LLE precautions. Patient seemed [...] 04/22/25 at 3:29 PM. Cosigned by Bobbi Alves PT at 04/22/2025 4:13 PM EST Associated attestation - Bobbi Alves, PT - 04/22/2025 4:13 PM EST I [...] admission Level of Mobility Ambulatory- community Mobility [place] Independent gait without device History of Falls [...] All needs within immediate reach. Left with all source analyst. Bracing (if applicable) N/a SUBJECTIVE PARTICIPANTS IN CARE Patient/Caregiver Comments Pt participates throughout session. Visitors Present No [employer] (if applicable) N/a OBJECTIVE PAIN Pt initially [...] lead with unaffectedlower extremity, requiring MAX A BIG DATA ENGINEER x2 due to LLE pain, fatigue and impaired balance. Pt requires step by step verbal, tactile sequencing for body positioning for functional transfers to promote independence, safety Pt educated on role of skilled occupational therapy services including frequency of session and discharge planning to promote carryover of care. Pt receptive of information and verbalizes understanding Level of [place] Adaptive Equipment Utilized Interventions Feeding Independent Edge [...] ROM and impaired balance. Sock aid and screw machine tool setter brought with intention to educate pt and utilize this session, but deferred due to pain and nausea. Health Management Pt educated on the importance of remaining upright in chair for 1-2 hours 3x per day to reduce risk for deconditioning, pressure sores, and pneumonia. Pt receptive to information and verbalizes understanding. BED MOBILITY Level of [place] Physical/Non- physical Assist Adaptive Equipment Utilized Scooting/ Bridging Contact guard Set-up required, Verbal Cues Supine to Sit Contact guard (Patient denied adamently when asked if she needed support for LLE. Patient required extra time due to pain and wanting to move herself. Used RLE to move LLE.) Set-up required, Verbal Cues, HOB elevated TRANSFERS Level of [place] Physical/Non- physical Assist Adaptive Equipment Utilized Sit [...] supervision, 24/7 nursing access, and daily intensive OT/PT/AUDIT ASSOCIATE services. It is expected that with this [...] it been needed. Jennifer Sanders, OTR/L * Nursing Note - Samina Gaytan, RN - 04/22/2025 11:40 AM EST Orthopedic Transition Nurse Note General: Spoke with: Patient, Bedside RN, and Primary Team Assessment and Interventions: Assessed: Dressing Dressing Interventions: CDI Wound 04/21/25 Surgical Closed Surgical Incision Leg Anterior;Left;Upper (Active) Wound Assessment Clean;Dry 04/22/25 0800 Margins Unable to assess 04/21/25 1750 Anna-Wound Assessment Dry;Clean 04/22/25 08 Closure Unable to assess 04/21/25 1750 Dressing Dry dressing 04/21/252019 Dressing Status Clean;Dry;Intact 04/22/25 0800 Education: Education [...] please contact the Orthopedic Transition Nurse at [phone] Saturday through Saturday 8:00 am to 2:30 [...] Care Review Outcome: Ongoing, Progressing Flowsheets Taken 04/22/2025 000 by Robyn Pineda, MAGDALENO Progress: improving Plan of Care Reviewed With: [...] Person-Centered Care Flowsheets (Taken 04/22/20255 by Robyn Pineda, MAGDALENO) Trust Relationship/Rapport: care explained choices provided emotional [...] -- Sean Hay MD Orthopedic Surgery PGY-1 [facility] Personal Pager: [phone] Orthopaedic Trauma Service Pager: [phone] Orthopaedic Recon/Spine/Foot and Ankle Service Pager: [phone] Cosigned by Wai Motley MD at 04/24/2025 [...] from the original note were not included. [facility] Department of Surgery Division of Acute Care [...] nursing staff. I have notified senior resident/attending chaperone with any issues or concerns. Clovis Nugent MD Orthopaedic Surgery PGY1 [facility] Personal Pager: [phone] Orthopaedic Trauma Service Pager: [phone] Orthopaedic Recon/Spine/Foot and Ankle Service Pager: [phone] * Anesthesia PACU Signout - Antionette Rizvi [...] back pain Resume home Baclofen Hold home [place] in light of acute fx and additional [...] Edited by: María Toledo APRN at 04/21/2025 9683 Relevant review of systems was obtained as [...] Admission: Not Applicable Admit to [facility] Closed fracture of left femur Present [...] Admission: Yes Resume home Baclofen Hold home [place] in light of acute fx and additional [...] PM EST Operative Note Date: 04/21/25 Location: [facility] Name: Parul Leone, : 1960, Diagnoses: Pre-op Diagnosis 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 I was present or immediately available for all parts of the procedure Animal Husbandry Technician(s): * Toribio Hernadez MD - Resident - Assisting * George Morejon MD - Resident - Assisting * Aleisha Trujillo MD - Resident - Assisting Anesthesia: General ASA: III Blood Administration: Blood Product Administration History None Estimated Blood Loss: 100mL Drains: * None in log * Implants Type Name Action Serial No. K-WIRE [id number] DRILL TIP GLOBUS MED - [id number] Implanted K-WIRE [id number] DRILL TIP GLOBUS MED - [id number] Implanted PLATE LATERAL NARROW DISTAL FEMUR LT 11H GLOBUS - [id number] Implanted SCREW 5.5X70MM FULLY THREADED SS - [id number] Implanted SCREW 4.5X60MM COCR LOCKING - [id number] Implanted SCREW 4.5X70MM COCR LOCKING - [id number] Implanted SCREW 4.5X75MM COCR LOCKING GLOBUS MED - [id number] Implanted SCREW 4.5X34MM SS NON-LOCKING GLOBUS MED - [id number] Implanted SCREW 4.5X36MM SS NON-LOCKING GLOBUS MED - [id number] Implanted SCREW 4.5X64MM COCR LOCKING GLOBUS MED - [id number] Implanted Specimen: None Findings: left distal femur [...] Sports Medicine Orthopedic Reconstructiion ([facility]) Service Pager: [phone] Orthopedic Trauma ([facility]) Service Pager: [phone] Cosigned by Wai Motley MD at 04/24/2025 [...] pain control per primary (patient on chronic [place]), would limit Atarax to no more than [...] that patient has a home prescription for [place] which may require adjustments to multimodal pain [...] Oscar Jarvis DO Internal Medicine PGY-2 Pager [phone]; Epic Chat preferred Cosigned by Maik Dumont MD at 04/22/2025 10:26 AM EST Associated attestation - Maik Dumont MD - 04/22/2025 10:26 AM EST I saw and evaluated the patient with the resident/fellow. I discussed the case with the resident/fellow and agree with the findings and plan as documented. Maik Dumont MD Attending Physician Internal Medicine/Pediatrics Secure Chat / Pager [phone] * Care Plan - Estela Galeano RN [...] follow. Please page ORF with any questions: [phone] Toribio Hernadez Orthopaedic Surgery and Sports Medicine [facility] * Care Plan - Robyn Clark RN [...] back pain Resume home Baclofen Hold home [place] in light of acute fx and additional [...] ORT, no N/V, abd pain. 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 Mobilizing as able with staff [...] Edited by: Rupinder Villar APRN at 04/20/2025 2196 Are there limits on this patient's care [...] skin every 30 days. YesProvider, Historical HYDROcodone-acetaminophen ([place]) 5-325 MG tablet Take 1 tablet by [...] Consult to Trauma Mental Health Professional or Senior It Assistant 6-9 = Psychiatry Consult Relevant review of [...] 04/20/2025 1554 Last data filed at 04/19/2025 175 Gross per 24 hour Intake 250 ml Output -- Net 250 ml Lines/Drains/Tubes: Patient Lines/Drains/Airways Status Active Airway None Output by Drain (mL) 04/18/25 0700 - 04/18/25 1859 04/18/25 1900 - 04/19/25 0659 04/19/25 0700 - 04/19/25 1859 04/19/25 1900 - 04/20/25 0659 04/20/25 0700 - 04/20/25 1554 Patient has no LDAs [...] Admission: Not Applicable Admit to [facility] Acute encephalopathy Present on Admission: Yes [...] Admission: Yes Resume home Baclofen Hold home [place] in light of acute fx and additional [...] Rupinder Villar APRN at 04/20/2025 1554 Rupinder M Jian, VETERANS SERVICE REPRESENTATIVE New diagnoses, need for imaging or specialty consultation identified as present on admission via tertiary survey: All labs and imaging reviewed this AM. No additional imaging required at this time. No additional diagnosis found, no additional consults required. [1] Past Surgical History: Procedure Laterality Date CATH STENT PLACEMENT/ CATH PLACEMENT OF STENT N/A Cath Stent Placement from [employer] CHOLECYSTECTOMY N/A Cholecystectomy from [facility] GASTRIC BYPASS N/A Gastric Surgery from [employer] HYSTERECTOMY N/A Hysterectomy from [employer] TUBAL LIGATION N/A Tubal Ligation from [employer] [2] Social History Tobacco Use Smoking Status [...] light touch throughout Coordination: no ataxia with fgwdzw-kl-wuop testing Gait/Station: Deferred Cortical: No Extinction Labs [...] of Care Goal: Plan of Care Review 04/20/2025 140 by Devika Billy RN Outcome: Ongoing, Progressing 04/20/2025 140 by Devika Billy RN Outcome: Ongoing, Progressing Flowsheets (Taken 04/20/2025 140) Progress: improving Plan of Care Reviewed With: patient Goal: Patient-Specific Goal (Individualized) 04/20/20251400 by Devika Billy RN Outcome: Ongoing, Progressing 04/20/2025 140 by Devika Billy RN Outcome: Ongoing, Progressing Goal: Absence of Hospital-Acquired Illness or Injury 04/20/2025 140 by Devika Billy RN Outcome: Ongoing, Progressing 04/20/2025 140 by Devika Billy RN Outcome: Ongoing, Progressing [...] OR 04/20/25 for operative fixation of her F-ptbn-ldxdzdhodp distal femur fracture. NPO since midnight. Extremity [...] up: Pending clinical course Disposition: Admitted to [facility] -- Sean Hay MD Orthopedic Surgery PGY-1 [facility] Personal Pager: [phone] Orthopaedic Trauma Service Pager: [phone] Orthopaedic Recon/Spine/Foot and Ankle Service Pager: [phone] Cosigned by Ulices Gale MD at 04/20/2025 [...] of window Images were discussed with Neurointerventionalist chaperone via the Buzzni sundeep. Thrombectomy was not performed due to [...] preserved and symmetric No limb ataxia with fibvqk-ru-zdqk or crzf-nw-nbdz Gait: Deferred Labs Labs in last 18 [...] Secondary stroke prophylaxis: restart plavix, atorvastatin - PT/OT/AUDIT ASSOCIATE Chronic medical conditions: HTN, HLD, CAD, T2DM, [...] further evaluation. Pt follows with Dr. Gonzales Television Announcer at [facility], last seen 10/2024 and had echo [...] Normal Ventricular Rate 87 Atrial Rate 87 HI Interval 140 QRSD Interval 94 QT Interval 388 QTC Interval 466 P [place] 70 R [place] 47 T Wave [place] 69 Diagnosis Normal sinus rhythm Diagnosis Normal [...] Mild biatrial dilation. No significant valve disease. [facility] 07/28/24: (in media) Widely patent proximal [...] Impression No acute intracranial abnormality. METS: >4 INTELLIGENT SYSTEMS ENGINEER reported RCRI: Low risk of MACE Ariscat: [...] procedure. Olimpia Wan PA-C Department of Anesthesia [phone] [1] Past Medical History: Diagnosis Date Body [...] tablet 1,000 mg 1,000 mg Oral q6h Nikki Martin MD 1,000 mg at 04/19/25 1139 folic [...] 17 g 17 g Oral Daily Rupinder Villar, VETERANS SERVICE REPRESENTATIVE 17 g at 04/19/25 0825 senna-docusate (Anna-Colace) 8.6-50 MG per tablet 1 tablet 1 tablet Oral Nightly Jian, Rupinder M, VETERANS SERVICE REPRESENTATIVE sodium chloride 0.9 % flush 10 mL 10 mL Intravenous q12h Nikki Belcher MD And sodium chloride 0.9 % flush 10 mL 10 mL Intravenous PRN Nikki Belcher MD No current outpatient medications on file. * Consults - Grisel Tapia RD - 04/19/2025 1:30 PM ESTAssociated Order(s): IP CONSULT TO NUTRITION SERVICES Adult Nutrition Evaluation Note Parul Leone 64 y.o. female CSN: [id number] Room/Bed Nutrition evaluation type: assessment Reason for [...] (98.5 ??F) Oxygen Therapy: None (Room air) Angie Coma Scale Score: 14 Renaldo Scale Score: [...] (Calculated): 22.89 Weight Evaluation: Normal (BMI 18.5-24.9) [place] Body Weight (kg): 52.4 Percent [place] Body Weight: 112 Wt Readings from Last 10 Encounters: 04/18/25 58.6 kg (129 lb 3 oz) 05/18/15 104 kg (230 lb 4 oz) 01/12/15 99.9 kg (220 lb 3.1 oz) 10/13/14 101 kg (221 lb 9 oz) Estimated Needs: Metabolic Cart Study Results: Current Nutrition Intake: Diet Order: Adult Diet Diet Texture: Regular Adult Carbohydrate Restriction: Consistent CHO 2 (5019-7215 Bruna, 80 g/meal) Percent Meals Eaten (%): [...] healing A1C </=6.5 Acuity Level: 2 Grisel Tapia, SHALOM [1] acetaminophen, 1,000 mg, Oral, q6h OLENA [...] Note Parul Leone 64 y.o. female CSN: [id number] Admission: 04/18/2025 10:23 PM Primary Problem: Fall at home, initial encounter Installer Inspector Final reviewed chart and spoke with patient's sister, Quin, to complete this Initial Case Management Assessment. PCP: Tho Bowden MD Emergency Contact: Extended Emergency Contact Information Primary Emergency Contact: Quin alves kenney Mobile Relation: Sister Preferred language: Nauruan [employer] [place] needed? No Secondary Emergency Contact: VasuYousif Mobile Relation: Son Preferred language: Nauruan [employer] [place] needed? No Insurance: Primary Visit Coverage Payer Plan Sponsor Code Group Number Group Name ANTHEM MEDICARE ANTHEM SENIOR ADVANTAGE [id number] Primary Visit Coverage Subscriber Subscriber ID Subscriber Name Subscriber SSN Subscriber Address [id number] Parul Leone [id number] [address] [place] [address] Patient information: Primary Caregiver: Self Support System: Immediate family Daily Living Activities: Functional Status: Independent Living Arrangements: Family (sister and nephew) Type of Residence: Private residence, Single Level [address] [place] [address] Smoker in the Home?: No Current DME: [...] HI, or dialysis Living Will/Advance Directive/Power of Blister Packaging Machine Operator /Guardian: Pre-existing DNR/DNI Order: No Additional [...] understandingof follow up instructions. ORT: 05/04/28 @ 3930 with Robina James @ Orthopaedic Surgery & Sports Medicine; [facility], [address] [place] [address], [address], [address], [place] [address], # [phone]. Neurology: Follow up with Neurology [address] [place] [address] [address], [facility], [place] [address]. The clinic will call you with an appointment. [facility] (Saturday clinic) as needed; [address] [place] [address] 1st [place] [address] Questions or Concerns and Appointments If there are questions or concerns after discharge from the hospital, please call [phone] and ask for Blue Surgery Nurse. Working hours are Saturday - Saturday 8:00 AM to 4:00 PM. After hours, weekends and holidays please call [phone] and ask for the resident chaperone for Blue Surgery. For appointments please call [phone]. Medication requests should be made between the [...] mentation Requesting Service: Trauma surgery Requested Date/Time: 799, 04/19/2025 History Of Present Illness Parul Leone is a 64-year-old female W/history of HTN, MDD/anxiety/mood disorders, chronic pain (onchronic opiates and baclofen), CAD s/p PCI W/CHF (unknown EF), GERD, migraines, hyperlipidemia, IBS, T2-DM presenting with a acutely altered mentation following fall with left sided femur fracture. Patient presents W/adult son, cetxyejs-wf-rhf, and sister; patient lives W/her sister. Patient [...] following: Vraylar, Seroquel, ropinirole, Topamax, trazodone, Effexor, [place], Atarax, baclofen, oxybutynin, Nurtec, Emgality In terms [...] cooperative; no AVH/RIS HEENT: EOMI, mmm NEURO: 5/5 strength in the bilateral upper extremities, moving [...] pain control per primary (patient on chronic [place]), would limit Atarax to no more than 25mg q8 Fall with left-sided femur fracture - Management per primary; would note that patient has a home prescription for [place] which may require adjustments to multimodal pain [...] Lorraine Red MD PGY-3, IM-PCT Secure Chat/Pager: [phone] [1] Current Facility-Administered Medications Medication Dose Route Frequency Provider Last Rate Last Admin acetaminophen (Tylenol) tablet 1,000 mg 1,000 mg Oral q6h [facility] Nikki Belcher MD 1,000 mg at 04/19/25 [...] 17 g 17 g Oral Daily Rupinder Villar, VETERANS SERVICE REPRESENTATIVE 17 g at 04/19/25 0825 senna-docusate (Anna-Colace) 8.6-50 MG per tablet 1 tablet 1 tablet Oral Nightly JianRosemary solera M, VETERANS SERVICE REPRESENTATIVE sodium chloride 0.9 % flush 10 mL [...] avoid polypharmacy. * Nursing Note - Samina Gaytan, RN - 04/19/2025 12:45 PM EST Orthopedic [...] please contact the Orthopedic Transition Nurse at [phone] Saturday through Saturday 8:00 am to 2:30 [...] Monitor Pain and Promote Comfort Flowsheets (Taken 04/19/20251199) Pain Management Interventions: medication (see MAR) Problem: [...] Patient participates throughout session. Visitors Present No [employer] [place] (if applicable) PRESENTATION Oxygen None (Room air) [...] admission Level of Mobility Ambulatory- community Mobility [place] Independent gait without device History of Falls [...] stand clearance performed with MAX A and BIG DATA ENGINEER x2 and able to pivot to chair with MAX VC for sequencing. Level of [place] Adaptive Equipment Utilized Interventions Grooming Minimum assistance [...] and verbalizes understanding. BED MOBILITY Level of [place] Physical/Non- physical Assist Adaptive Equipment Utilized Scooting/ Bridging Minimum assist (75% patient's effort) Set-up required, Verbal Cues, Additional assist utilized for safety Bed rails Supine to Sit Maximum assist (25% patient's effort) Set-up required, Verbal Cues, Additional assistutilized for safety, HOB elevated TRANSFERS Level of [place] Physical/Non- physical Assist Adaptive Equipment Utilized Sit [...] for safety Hand held assist STANDARDIZED ASSESSMENTS [facility] 6-Click Daily Activities Help from Other: Don/Doff Regular Lower Body Clothings: A lot Help From Other: Bathing: A lot Help From Other: Toileting: A lot Help From Other: Don/Doff Upper Body Clothings: A lot Help From Other: Grooming: A lot Help From Other: Eating Meals: A lot [facility] 6 Click - Daily Activities Score: 12 [...] frequent medical supervision, 24/7 nursing access, and intensive OT/PT/AUDIT ASSOCIATE services. It is expected that with this [...] available for assistance had it been needed. SHEA Golden/Bryant * Progress Notes - Colby Robyn Vanda - 04/19/2025 8:59 AM EST Physical Therapy [...] room. Participants in Care Family/Caregiver Present: No [employer] [place]: Not Applicable Presentation Oxygen Therapy: None (Room [...] admission Level of Mobility: Ambulatory- community Mobility [place]: Independent gait without device ADL Performance: Independent [...] Mobility Bed Mobility Exam: Scooting/Bridging Level of [place]: Minimum assist (75% patient's effort) Physical/Nonphysical Assist: Set-up required, Verbal Cues, Additional assist utilized for safety (Extra time needed for scooting- possibly because of pain) Assistive Device: Bed rails Bed Mobility Exam: Supine to Sit Level of [place]: Maximum assist (25% patient's effort) Physical/Nonphysical Assist: Set-up required, Verbal Cues, Additional assist utilized for safety, HOB elevated Transfers Transfer Exam: Sit to stand Level of [place]: Maximum assist (25% patient's effort) Physical/Nonphysical Assist: Nonverbal cues (demo/gestures), Verbal Cues (cues for positioning and precautions for NWB of LLE) Assistive Device: Walker, rolling Transfer Exam: Bed to Chair/Chair to Bed Level of [place]: Maximum assist (25% patient's effort) Physical/Nonphysical Assist: [...] upper extremity support, Left upper extremity support (BIG DATA ENGINEER X2) Dynamic Standing-Balance: Lateral weight shifts Dynamic Standing Level of Assistance: Maximum assistance Standardized Assessments Standardized Assessments Standardized Assessments: [facility] 6-Clicks Mobility Assessment [facility] 6-Clicks Mobility Assessment Difficulty patient has turning [...] climbing 3-5 steps with a railing?: Unable [facility] 6-Clicks Mobility Assessment Total : 11 [...] 4:32 PM EST Associated attestation - Bobbi Alves, PT - 04/19/2025 4:32 PM EST Read [...] required Gabriel Salamanca MD Orthopaedic Surgery Resident [facility] Orthopaedic Trauma Service Pager: [phone] Orthopaedic Recon/Spine/Foot and Ankle Service Pager: [phone] Personal Pager: [phone] Cosigned by Ulices Gale MD at 04/19/2025 [...] of Consultation: 419 Time of Trauma Evaluation: 050 ED Arrival Date: 04/18/2025 ED Arrival Time: 10:10 PM Referring Hospital: [facility] Injury Date: 04/19/2025 Injury Time: unknown Transport [...] (129 lb 3 oz), SpO2 97%. Angie Angie Coma Scale Best Eye Response: Spontaneous Best [...] Admission: Not Applicable Admit to [facility] patient with AMS in addition to traumatic left femur fx. Ortho following. Will plan to admit with medicine consult for AMS. Disposition: admit to [facility] Nikki Belcher MD [1] Family History Problem [...] tablet 1,000 mg 1,000 mg Oral q6h [facility] Nikki Beclher MD folic acid (Folvite) tablet 1 mg [...] ORTHOPAEDIC SURGERY TRAUMA CONSULT NOTE Consult Received: 3012 Patient Examined: 2315 CHIEF COMPLAINT AND REASON FOR VISIT Left leg pain HISTORY OF PRESENT ILLNESS Parul Leone is a 64 y.o. female with history of L-TKA performed at an unknown date presents to [facility] as a transfer from OSH for periprosthetic L distal femur fracture. HPI is significantly limited bypatient only stating her first and last name. Per chart review the patient stepped in a pothole andfell on 04/17, presented to an OSH as a stroke alert due to slurred speech and altered mental statuswith negative stroke work-up, transferred to [facility] for her femur fracture. Positive loss of [...] fracture Arturo Acuna MD Orthopedic Surgery PGY-2 [facility] Orthopaedic Trauma Service Pager: [phone] Orthopaedic Recon/Spine/Foot and Ankle Service Pager: [phone] [1] Past Medical History: Diagnosis Date Body [...] OF STENT N/A Cath Stent Placement from [employer] CHOLECYSTECTOMY N/A Cholecystectomy from [employer] GASTRIC BYPASS N/A Gastric Surgery from [employer] HYSTERECTOMY N/A Hysterectomy from [employer] TUBAL LIGATION N/A Tubal Ligation from [employer] [...] bypass, IBS who presents to ED from [facility] for further evaluation by ortho for [...] relative History limited by: Mental status change spanish interpreter/translator used: No Patient History Past Medical History[1] [...] ordered: ED Medication Administration from 04/18/20252029 to 04/19/2025 0627 Date/Time Order Dose Route Action 04/19/2025 0045 [...] Confirm Urine Once In process JULIA JACOBSON 04/19/[address] Femur Left wo IV [...] C Antibody - ED Once Final result DOV JULIA P 04/19/25 0043 ED Protocol - HIV 1/2 Antibody/Antigen Screen Once Final result DOV JULIA P 04/19/25 0043 ED HIV 1/2 Antibody/Antigen Screen w/Reflex to HIV 1/2 Differentiation PROCEDURE ONCE Final result BONIFACIO JACOBSONA P 04/19/25 0043 Drug abuse screen STAT Final result ALISONNEIL JULIA P 04/19/25 0043 Insert peripheral IV Once Acknowledged BONIFACIO JACOBSONA P 04/19/[address] Head wo IV Contrast Once Final result BONIFACIO JACOBSONA P 04/19/25 0043 CMP STAT Final result DOV JULIA P 04/19/25 0043 CBC w/diff STAT Final result ALISONNEIL JULIA P 04/19/25 0043 Blood gas panel, venous STAT Final result ALISONNEIL JULIA P 04/19/25 0043 Ethyl Alcohol Plasma STAT Final result ALISONNEIL JULIA P 04/18/[address] Knee Left wo IV Contrast Once Final result ARTURO ACUNA 04/18/25 2327 POCT glucose meter PROCEDURE ONCE Final result POCT, GENERIC PROVIDER 04/18/25 2256 Consult to Orthopaedic Surgery Once Comments: Distal Left Femoral fx- Transfer from [facility] Specialty: Orthopaedic Surgery Provider: (Not yet assigned) Completed JULIA JACOBSON P 04/18/25 2254 XR Tibia Fibula Left 2+ Views Once Final result BONIFACIO JACOBSONA P 04/18/25 2254 XR Knee Left 3 Views Once Final result BONIFACIO JACOBSONA P 04/18/25 2254 XR Hip Left 2 or 3 Views Including Pelvis Once Final result BONIFACIO JACOBSONA P 04/18/25 2254 XR Femur Left 2+ Views Once Final result JULIA JACOBSON P ED Course as of 04/19/25 0653 Sun Apr 18, 2025 2239 Urinalysis negative for bacteria, urine drug screen positive for opioids CBC unremarkable BMP no actionable metabolic disturbances, alcohol level less than 10, [GG] 2245 OSH- CT imaging outside hospitals reviewed CT cervical spine without contrast negative CT headwithout contrast negative, CT angio chest PE negative, CT abdomen and pelvis with contrast any acute findings CTA of neck without any acute findings CTA of head without any acute finding [GG] 224 Left knee comminuted complete transfers fracture of the distal left femoral metaphysis- transferred to for trauma, fall. [GG] SatApr 19, 2025 0122 Re-evaluated patient at bedside, [...] Plasma: <1.0 [GG] 0322 Trauma paged [GG] [phone] Consulted Trauma to discuss admissions, patient is [...] [GG] ED Course User Index [GG] Julia Jacobson, VETERANS SERVICE REPRESENTATIVE Clinical Impressions as of 04/19/25 0653 Altered [...] ED Prescriptions None Disposition Admit Requested Location: [facility] [[id number]] - [1] Past Medical History: Diagnosis Date [...] [5] Allergies Allergen Reactions Milk (Cow) Nausea GramigJulia APRN 04/19/25 0653 Cosigned by Yousif Anderson DO at 04/22/2025 10:06 AM EST Associated attestation - Yousif Anderson DO - 04/22/2025 10:06 AM EST I attest to being involved in providing substantive part of the medical decision making in patient care. * ED Triage Notes - Sean Recinos, RN - 04/18/2025 10:10 PM EST Pt arrives via EMS from OSH for Left femur fracture after stepping in pothole and falling on 04/17. Pt initially arrived to OSH as SA with LKN 1100 04/17 due to slurred speech, AMS. 2 mg narcan given at OSH with improved symptoms. Reports having taken too many of my norcos because my leg was hurting INTELLIGENT SYSTEMS ENGINEER at OSH. GCS 14 on arrival. LOC/BT+ (plavix) documented in this encounter Plan of Treatment Upcoming Encounters Date Type Department Care Team (Late st Contact Info) Description 06/21/2025 9:30 AM EST Appointment [facility] Radiology [address] [place] [address] 06/21/2025 10:10 AM EST Office Visit [facility] Orthopaedic Surgery & Sports Medicine [address] [place] [address] Wai Motley MD [address] [place] [address] Pending Results Name Type Priority Associated Diagnoses Date /Time Prepare Leukocyte Reduced RBC: 2 Units, Leukocyte reduced (CMV reduced risk) Blood Bank Routine 04/19/2025 11:42 AM EST Scheduled Referrals Name Type Priority Associated Diagnoses Order Schedule Discharge Ambulatory referral to [facility] Home Health Outpatient Referral Routine Altered mental status, unspecified altered mental status type Fall, initial encounter 1 Occurrences starting 04/24/2025 until 10/26/2026 Discharge Ambulatory referral to [facility] Physical Therapy Outpatient Referral Routine 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, initial encounter 1 Occurrences starting 04/26/2025 until 10/28/2026 Discharge Ambulatory referral to [facility] Occupational Therapy Outpatient Referral Routine Anna-prosthetic femur [...] HOUR (NON-REPORTABLE) Routine 04/21/2025 5:10 PM EST HI OPEN TX FEMORAL FRACTURE DISTAL MED/LAT CONDYLE [...] LAB HEMATOLOGY METHOD 04/26/2025 7:41 AM EST [facility] HCT 23.4(L) 34.0 - 45.0 % LAB HEMATOLOGY METHOD 04/26/2025 7:41 AM EST [facility] Blood Venous blood specimen / Unknown Venipuncture / Unknown 04/26/2025 7:29 AM EST 04/26/2025 7:33 AM EST us Sandy DOTY LAB BLOOD ORDERABLES Final Result [facility] [address] [place] [address] * (ABNORMAL) Hemoglobin and Hematocrit, Blood (04/25/2025 1:37 PM EST) HGB 8.3(L) 11.2 - 15.7 g/dL LAB HEMATOLOGY METHOD 04/25/2025 1:58 PM EST [facility] HCT 24.7(L) 34.0 - 45.0 % LAB HEMATOLOGY METHOD 04/25/2025 1:58 PM EST [facility] Blood Venous blood specimen / Unknown Venipuncture / Unknown 04/25/2025 1:37 PM EST 04/25/2025 1:49 PM EST Maryjane Moore APRN LAB BLOOD ORDERABLES Final Re sult [facility] [address] [place] [address] * Transfuse RBC (04/25/2025 11:02 AM EST) Maryjane Moore APRN BLOOD TRANSFUSION ORDERABLES Final Result * Transfuse RBC: 1 Units (04/25/2025 11:02 AM EST) Maryjane Moore APRN BLOOD TRANSFUSION ORDERABLES Final Result * Type and screen (04/25/2025 7:46 AM EST) ABO/Rh O Positive 04/25/2025 7:50 AM EST BLOOD BANK Antibody Screen Negative 04/25/2025 7:50 AM EST [facility]LO[facility] Specimen Expiration 04/28/2025 23:59 04/25/2025 7:50 AM EST [facility]LO[facility] Blood Venous blood specimen / Unknown Venipuncture / Unknown 04/25/2025 7:46 AM EST 04/25/2025 7:50 AM EST Maryjane Moore APRN LAB BLOOD BANK TEST ORDERABLE S Final Result Performing Organization Address City/[facility]/ZIP Co de Phone Number BLOOD BANK [address] [place] [address], * Prepare Leukocyte Reduced RBC: 1 Units (04/25/2025 7:34 AM EST) Product Code [id number] CH BLOO D BANK Dispense Status Transfused BLOOD BANK Blood Expiration Date [id number] BLOOD BANK Unit Number [id number] B LOOD BANK Product Blood Type 5100 BLOOD BANK Blood Type O+ BLOOD BANK Crossmatch Compatible BLOOD BANK Other us Maryjane Moore VETERANS SERVICE REPRESENTATIVE BLOOD BANK PRODUCT ORDERABLES Final Result Performing Organization Address [facility]/ZIP Co de Phone Number BLOOD BANK [address] [place] [address], [place] * Light Green Top (04/25/2025 5:35 AM EST) Extra Hold for add-ons 04/25/2025 8:01 AM EST [facility] Comment:Auto resulted. Blood Venous blood specimen / Unknown 04/25/2025 5:35 AM EST 04/25/2025 5:45 AM EST Bell Tang MD LAB BLOOD ORDERABLES Amy l Result Performing Organization Address [facility]/ZIP Co de Phone Number [facility] [address] [place] [address] * (ABNORMAL) Hemoglobin and Hematocrit, Blood (04/25/2025 5:35 AM EST) HGB 6.8(L) 11.2 - 15.7 g/dL LAB HEMATOLOGY METHOD 04/25/2025 5:58 AM EST [facility] HCT 20.1(L) 34.0 - 45.0 % LAB HEMATOLOGY METHOD 04/25/2025 5:58 AM EST [facility] Blood Venous blood specimen / Unknown Venipuncture / Unknown 04/25/2025 5:35 AM EST 04/25/2025 5:45 AM EST us Etta Jimenez APRN LAB BLOOD ORDERABLES Final Re sult Performing Organization Address City/[facility]/ZIP Co de Phone Number [facility] [address] [place] [address] * (ABNORMAL) Basic metabolic panel (04/24/2025 5:20 AM EST) Glucose, Plasma 120(H) 74 - 99 mg/dL 04/24/2025 5:55 AM EST [facility] BUN, Plasma 20 8 - 23 mg/dL 04/24/2025 5:55 AM EST [facility] Creatinine, Plasma 0.51(L) 0.60 - 1.10 mg/dL 04/24/2025 5:55 AM EST [facility] BUN/Creatinine Ratio 39 04/24/2025 5:55 AM EST [facility] Sodium, Plasma 136 136 - 145 mmol/L 04/24/2025 5:55 AM EST [facility] Potassium, Plasma 3.6 3.6 - 4.9 mmol/L 04/24/2025 5:55 AM EST [facility] Chloride, Plasma 103 97 - 107 mmol/L 04/24/2025 5:55 AM EST [facility] CO2, Plasma 25 22 - 29 mmol/L 04/24/2025 5:55 AM EST [facility] Anion Gap 8 6 - 16 mmol/L 04/24/2025 5:55 AM EST [facility] Total Calcium, Plasma 8.2(L) 8.9 - 10.2 mg/dL 04/24/2025 5:55 AM EST [facility] eGFRcr 105.0 mL/min/1.7 3m*2 04/24/2025 5:55 AM EST [facility] Comment:Reported eGFRcr in m L/min/1.73m2 is based the CKD-EPI 2020 equation that does not use a race coefficient. Blood Venous blood specimen / Unknown Venipuncture / Unknown 04/24/2025 5:20 AM EST 04/24/2025 5:26 AM EST us Etta Jimenez APRN LAB BLOOD ORDERABLES Final Re sult [facility] [address] [place] [address] * (ABNORMAL) Magnesium (04/24/2025 5:20 AM EST) Magnesium, Plasma 1.7(L) 1.9 - 2.4 mg/dL 04/24/2025 5:55 AM EST [facility] Blood Venous blood specimen / Unknown Venipuncture / Unknown 04/24/2025 5:20 AM EST 04/24/2025 5:26 AM EST us Etta Jimenez VETERANS SERVICE REPRESENTATIVE LAB BLOOD ORDERABLES Final Re sult Performing Organization Address City/[facility]/ZIP Co de Phone Number [facility] [address] [place] [address] * (ABNORMAL) Hemoglobin and Hematocrit, Blood (04/24/2025 5:20 AM EST) HGB 7.3(L) 11.2 - 15.7 g/dL LAB HEMATOLOGY METHOD 04/24/2025 5:33 AM EST [facility] HCT 21.4(L) 34.0 - 45.0 % LAB HEMATOLOGY METHOD 04/24/2025 5:33 AM EST [facility] Blood Venous blood specimen / Unknown Venipuncture / Unknown 04/24/2025 5:20 AM EST 04/24/2025 5:26 AM EST Etta Jimenez VETERANS SERVICE REPRESENTATIVE LAB BLOOD ORDERABLES Final Re sult Performing Organization Address City/[facility]/ZIP Co de Phone Number [facility] [address] [place] [address] * Phosphorus, Plasma (04/22/2025 3:25 AM EST) Phosphorus, Plasma 3.6 2.5 - 4.5 mg/dL 04/22/2025 4:00 AM EST [facility] Blood Venous blood specimen / Unknown Venipuncture / Unknown 04/22/2025 3:25 AM EST 04/22/2025 3:31 AM EST María Toledo VETERANS SERVICE REPRESENTATIVE LAB BLOOD ORDERABLES Final Result [facility] [address] [place] [address] * (ABNORMAL) Magnesium, Plasma (04/22/2025 3:25 AM EST) Magnesium, Plasma 1.4(L) 1.9 - 2.4 mg/dL 04/22/2025 4:00 AM EST [facility] Blood Venous blood specimen / Unknown Venipuncture / Unknown 04/22/2025 3:25 AM EST 04/22/2025 3:31 AM EST María Toledo APRN LAB BLOOD ORDERABLES Final Result [facility] [address] [place] [address] * (ABNORMAL) Basic metabolic panel (04/22/2025 3:25 AM EST) Glucose, Plasma 136(H) 74 - 99 mg/dL 04/22/2025 4:00 AM EST [facility] BUN, Plasma 19 8 - 23 mg/dL 04/22/2025 4:00 AM EST [facility] Creatinine, Plasma 0.48(L) 0.60 - 1.10 mg/dL 04/22/2025 4:00 AM EST [facility] BUN/Creatinine Ratio 40 04/22/2025 4:00 AM EST [facility] Sodium, Plasma 135(L) 136 - 145 mmol/L 04/22/2025 4:00 AM EST [facility] Potassium, Plasma 4.2 3.6 - 4.9 mmol/L 04/22/2025 4:00 AM EST [facility] Chloride, Plasma 101 97 - 107 mmol/L 04/22/2025 4:00 AM EST [facility] CO2, Plasma 22 22 - 29 mmol/L 04/22/2025 4:00 AM EST [facility] Anion Gap 12 6 - 16 mmol/L 04/22/2025 4:00 AM EST [facility] Total Calcium, Plasma 8.2(L) 8.9 - 10.2 mg/dL 04/22/2025 4:00 AM EST [facility] eGFRcr 106.6 mL/min/1.7 3m*2 04/22/2025 4:00 AM EST [facility] Comment:Reported eGFRcr in m L/min/1.73m2 is based the CKD-EPI 2020 equation that does not use a race coefficient. Blood Venous blood specimen / Unknown Venipuncture / Unknown 04/22/2025 3:25 AM EST 04/22/2025 3:31 AM EST María Toledo VETERANS SERVICE REPRESENTATIVE LAB BLOOD ORDERABLES Final Result [facility] [address] [place] [address] * (ABNORMAL) CBC W/O Differential (04/22/2025 3:25 AM EST) WBC Count 8.07 3.70 - 10.30 10*3/uL LAB HEMATOLOGY METHOD 04/22/2025 3:42 AM EST [facility] RBC Count 3.46(L) 3.90 - 5.20 10*6/uL LAB HEMATOLOGY METHOD 04/22/2025 3:42 AM EST [facility] HGB 10.4(L) 11.2 - 15.7 g/dL LAB HEMATOLOGY METHOD 04/22/2025 3:42 AM EST [facility] HCT 31.2(L) 34.0 - 45.0 % LAB HEMATOLOGY METHOD 04/22/2025 3:42 AM EST [facility] Platelet Count 224 155 - 369 10*3/uL LAB HEMATOLOGY METHOD 04/22/2025 3:42 AM EST [facility] MCV 90 79 - 98 fL LAB HEMATOLOGY METHOD 04/22/2025 3:42 AM EST [facility] MCH 30.1 26.0 - 32.0 pg LAB HEMATOLOGY METHOD 04/22/2025 3:42 AM EST [facility] MCHC 33.3 30.7 - 35.5 g/dL LAB HEMATOLOGY METHOD 04/22/2025 3:42 AM EST [facility] RDW 12.2 11.5 - 14.5 % LAB HEMATOLOGY METHOD 04/22/2025 3:42 AM EST [facility] MPV 9.0 8.8 - 12.5 fL LAB HEMATOLOGY METHOD 04/22/2025 3:42 AM EST [facility] nRBC 0.0 <=0.0 per 100 WBCs LAB HEMATOLOGY METHOD 04/22/2025 3:42 AM EST [facility] Blood Venous blood specimen / Unknown Venipuncture / Unknown 04/22/2025 3:25 AM EST 04/22/2025 3:31 AM EST María Toledo APRN LAB BLOOD ORDERABLES Final Result [facility] [address] [place] [address] * XR Knee Left 3 Views (04/21/2025 [...] - 99 mg/dL 04/21/2025 2:17 PM EST [facility] Comment:Accuracy of a glucos e result [...] for testing. Comment 04/21/2025 2:17 PM EST [facility] Customer Business Manager ID Veronica Trevino 04/21/2025 2:17 PM EST [facility] Device ID [id number] 04/21/2025 2:17 PM EST [facility] Specimen Type POC Capillary 04/21/2025 2:17 PM EST [facility] Blood Capillary blood specimen / Unknown 04/21/2025 2:15 PM EST 04/21/2025 2:17 PM EST Vikki Lucia MD LAB POINT OF CARE TEST DOCKED DEVICE UNSOLICITED RESULTS Final Result [facility] [address] [place] [address] * Methicillin Resistant Staphylococcus aureus (MRSA) by PCR (04/21/2025 12:57 PM EST) Methicillin Resistant Staphylococcus aureus (MRSA) by PCR Not Detected Not Detected 04/21/2025 3:35 PM EST [facility] Swab Both anterior nares / Unknown Non-blood Collection / Unknown 04/21/2025 12:57 PM EST 04/21/2025 1:34 PM EST Narrative [facility] - 04/21/2025 3:35 PM EST This test is FDA approved for use with nares swab specimens using the eSwabs. This test is used for clinical purposes. It should not be regarded as investigational or for research. This laboratory is certified under the Clinical Laboratory improvement Amendments of 1988 (CLIA-88 as qualified to perform high complexity clinical laboratory testing. us Vikki Lucia MD LAB MICROBIOLOGY - GENERAL ORDERABLES Final Result [address] [address] * ECHO, ADULT TRANSTHORACIC LIMITED (04/21/2025 10:51 [...] there is no significant interval change noted. Rupinder Valdez Jian NICOLE CV ECHO PROCEDURES Final Resul t * [...] 65 mL MAAME ISCV ESV(MOD-bp) 24 mL MAAEM ISCV EF(MOD-bp) 64 % MAAME ISCV LVOT [...] Ao Diam 36 mm MAAME ISCV PA HI(ACCEL) 39.8 mmHg MAAME ISCV LV mean PG [...] is no recent study available for direct [id number]-[id number] comparison. Left Ventricle Based on the linear [...] is no recent study available for direct hjng-pd-[id number] comparison. us Rupinder Villar VETERANS SERVICE REPRESENTATIVE CV ECHO PROCEDURES Final Resul t * Prothrombin Time/INR (04/20/2025 1:48 AM EST) Prothrombin Time 13.7 12.0 - 14.3 sec LAB COAGULATION METHOD 04/20/2025 2:26 AM EST [facility] INR 1.0 0.9 - 1.1 LAB COAGULATION METHOD 04/20/2025 2:26 AM EST [facility] Blood Venous blood specimen / Unknown Venipuncture / Unknown 04/20/2025 1:48 AM EST 04/20/2025 1:56 AM EST Narrative [facility] - 04/20/2025 2:26 AM EST OPTIMAL INR RANGES FOR PATIENT ON ORAL ANTICOAGULANT THERAPY Prevention of venous thromboembolism INR 2.0 to 3.0 In patients with heart disease: Atrial fibrillation INR 2.0 to 3.0 Valvular heart disease INR 2.0 to 3.0 Tissue heart valves INR 2.0 to 3.0 Mechanical prosthetic valves INR 2.5 to 3.5 Prevention of recurrent [place] INR 2.5 to 3.5 us Vikki Lucia MD LAB BLOOD ORDERABLES Final Result [facility] [address] [place] [address] * (ABNORMAL) Basic Metabolic Panel, Plasma (04/20/2025 1:48 AM EST) Glucose, Plasma 105(H) 74 - 99 mg/dL 04/20/2025 2:25 AM EST [facility] BUN, Plasma 12 8 - 23 mg/dL 04/20/2025 2:25 AM EST [facility] Creatinine, Plasma 0.55(L) 0.60 - 1.10 mg/dL 04/20/2025 2:25 AM EST [facility] BUN/Creatinine Ratio 22 04/20/2025 2:25 AM EST [facility] Sodium, Plasma 140 136 - 145 mmol/L 04/20/2025 2:25 AM EST [facility] Potassium, Plasma 3.4(L) 3.6 - 4.9 mmol/L 04/20/2025 2:25 AM EST [facility] Chloride, Plasma 107 97 - 107 mmol/L 04/20/2025 2:25 AM EST [facility] CO2, Plasma 25 22 - 29 mmol/L 04/20/2025 2:25 AM EST [facility] Anion Gap 8 6 - 16 mmol/L 04/20/2025 2:25 AM EST [facility] Total Calcium, Plasma 8.4(L) 8.9 - 10.2 mg/dL 04/20/2025 2:25 AM EST [facility] eGFRcr 103.1 mL/min/1.7 3m*2 04/20/2025 2:25 AM EST [facility] Comment:Reported eGFRcr in m L/min/1.73m2 is based the CKD-EPI 2020 equation that does not use a race coefficient. Blood Venous blood specimen / Unknown Venipuncture / Unknown 04/20/2025 1:48 AM EST 04/20/2025 1:56 AM EST us Vikki Lucia MD LAB BLOOD ORDERABLES Final Result [facility] [address] [place] [address] * (ABNORMAL) CBC W/O Differential (04/20/2025 1:48 AM EST) WBC Count 10.28 3.70 - 10.30 10*3/uL LAB HEMATOLOGY METHOD 04/20/2025 2:08 AM EST [facility] RBC Count 3.77(L) 3.90 - 5.20 10*6/uL LAB HEMATOLOGY METHOD 04/20/2025 2:08 AM EST [facility] HGB 11.9 11.2 - 15.7 g/dL LAB HEMATOLOGY METHOD 04/20/2025 2:08 AM EST [facility] HCT 33.8(L) 34.0 - 45.0 % LAB HEMATOLOGY METHOD 04/20/2025 2:08 AM EST [facility] Platelet Count 232 155 - 369 10*3/uL LAB HEMATOLOGY METHOD 04/20/2025 2:08 AM EST [facility] MCV 90 79 - 98 fL LAB HEMATOLOGY METHOD 04/20/2025 2:08 AM EST [facility] MCH 31.6 26.0 - 32.0 pg LAB HEMATOLOGY METHOD 04/20/2025 2:08 AM EST [facility] MCHC 35.2 30.7 - 35.5 g/dL LAB HEMATOLOGY METHOD 04/20/2025 2:08 AM EST [facility] RDW 12.4 11.5 - 14.5 % LAB HEMATOLOGY METHOD 04/20/2025 2:08 AM EST [facility] MPV 9.1 8.8 - 12.5 fL LAB HEMATOLOGY METHOD 04/20/2025 2:08 AM EST [facility] nRBC 0.0 <=0.0 per 100 WBCs LAB HEMATOLOGY METHOD 04/20/2025 2:08 AM EST [facility] Blood Venous blood specimen / Unknown Venipuncture / Unknown 04/20/2025 1:48 AM EST 04/20/2025 1:56 AM EST us Vikki Lucia MD LAB BLOOD ORDERABLES Final Result [facility] [address] [place] [address] * Protein electrophoresis serum, pathologist interpretation (04/19/2025 2:38 PM EST) Clinical Diagnosis, SPEP Pathologic fracture ISO osteoporosis 04/20/2025 2:44 PM EST [facility] Interpretation , SPEP The protein [...] diagnosis or interpretation. 04/20/2025 2:44 PM EST [facility] Pathologist Signature, SPEP Reviewed by: Randy Torres MD 04/20/2025 2:44 PM EST [facility] CP ASR DISCLAIMER Yes 04/20/2025 2:44 PM EST [facility] Blood Venous blood specimen / Unknown Venipuncture / Unknown 04/19/2025 2:38 PM EST 04/19/2025 3:14 PM EST us Rupinder Villar APRN LAB PATHOLOGY ORDERABLES Final Result Performing Organization Address [facility] Phone Number [facility] [address] [place] [address] * LDL cholesterol, direct (04/19/2025 2:38 PM EST) Direct LDL Cholesterol 38 <100 mg/dL 04/20/2025 1:47 AM EST [facility] Comment: LDL Cholesterol reference range (age >17 years): Optimal: <100 mg/dL Near or above optimal: 100 to 129 mg/dL Borderline high: 130 to 159 mg/dL High: 160 to 189 mg/dL Very high: >189 mg/dL Fasting greater than or equal to 8 hours? unknown 04/20/2025 1:47 AM EST [facility] Blood Venous blood specimen / Unknown Venipuncture / Unknown 04/19/2025 2:38 PM EST 04/19/2025 2:47 PM EST us Vikki Lucia MD LAB BLOOD ORDERABLES Final Result Performing Organization Address City/[facility] Co de Phone Number [facility] [address] [place] [address] * Vitamin B12 (04/19/2025 2:38 PM EST) Vitamin B12, Serum 573 210 - 1,033 pg/mL 04/19/2025 3:58 PM EST [facility] Blood Venous blood specimen / Unknown Venipuncture / Unknown 04/19/2025 2:38 PM EST 04/19/2025 3:14 PM EST Rupinder Villar APRN LAB BLOOD ORDERABLES Final Res ult Performing Organization Address [facility]/ZIP Co de Phone Number [facility] [address] [place] [address] * Hemoglobin A1c (04/19/2025 2:38 PM EST) Hemoglobin A1c 5.3 <5.7 % 04/19/2025 7:47 PM EST [facility] Blood Venous blood specimen / Unknown Venipuncture / Unknown 04/19/2025 2:38 PM EST 04/19/2025 3:16 PM EST Narrative [facility] - 04/19/2025 7:47 PM EST [facility] Interpretive Data: Diagnosis of Diabetes: Diabetic > or = 6.5% Pre-diabetic 5.7 to 6.4% Non-diabetic < or = 5.6% Glycemic Targets for Type I and Type II Diabetics: Non- Adults <7.0% Adults <6.0% Children and Adolescents <7.5% Source: [place] [employer]. Standards of medical care in diabetes,2017. Diabetes Care.2017:40 (suppl 1):S1-S135. Rupinder Villar VETERANS SERVICE REPRESENTATIVE LAB BLOOD ORDERABLES Final Res ult Performing Organization Address [facility] Co de Phone Number [facility] [address] [place] [address] * (ABNORMAL) Total Protein, Serum (04/19/2025 2:38 PM EST) Total Protein 5.7(L) 6.2 - 7.7 g/dL 04/19/2025 3:43 PM EST [facility] Blood Venous blood specimen / Unknown Venipuncture / Unknown 04/19/2025 2:38 PM EST 04/19/2025 3:14 PM EST Rupinder Villar VETERANS SERVICE REPRESENTATIVE LAB BLOOD ORDERABLES Final Res ult Performing Organization Address [facility] Co de Phone Number [facility] [address] [place] [address] * (ABNORMAL) Protein Electrophoresis, Serum (04/19/2025 2:38 PM EST) Albumin Electrophoresis, Serum 3.4(L) 3.6 - 4.7 g/dL 04/20/2025 4:04 AM EST [facility] Alpha 1 Globulin Electrophoresis, Serum 0.3 0.2 - 0.4 g/dL 04/20/2025 4:04 AM EST [facility] Alpha 2 Globulin Electrophoresis, Serum 0.7 0.5 - 0.9 g/dL 04/20/2025 4:04 AM EST [facility] Beta 1 Globulin Electrophoresis, Serum 0.4 0.3 - 0.5 g/dL 04/20/2025 4:04 AM EST [facility] Beta 2 Globulin Electrophoresis, Serum 0.3 0.2 - 0.5 g/dL 04/20/2025 4:04 AM EST [facility] Gamma Globulin Electrophoresis, Serum 0.6 0.6 - 1.5 g/dL 04/20/2025 4:04 AM EST [facility] Interpretation, Serum Protein Electrophoresis Pathology report to follow. 04/20/2025 4:04 AM EST [facility] Blood Venous blood specimen / Unknown Venipuncture / Unknown 04/19/2025 2:38 PM EST 04/19/2025 3:14 PM EST Rupinder Villar APRN LAB BLOOD ORDERABLES Final Res ult Performing Organization Address City/[facility]/ZIP Co de Phone Number [facility] [address] [place] [address] * Ionized calcium, serum (04/19/2025 2:38 PM EST) Pathologist [facility] Ionized Calcium, Serum 4.9 4.6 - 5.3 mg/dL LAB HEMATOLOGY METHOD 04/19/2025 4:10 PM EST [facility] Blood Venous blood specimen / Unknown Venipuncture / Unknown 04/19/2025 2:38 PM EST 04/19/2025 3:14 PM EST Rupinder Villar VETERANS SERVICE REPRESENTATIVE LAB BLOOD ORDERABLES Final Res ult Performing Organization Address City/[facility]/ZIP Co de Phone Number [facility] [address] [place] [address] * PTH Intact Total (04/19/2025 2:38 PM EST) PTH Intact Total 72 9 - 77 pg/mL 04/19/2025 4:53 PM EST [facility] Blood Venous blood specimen / Unknown Venipuncture / Unknown 04/19/2025 2:38 PM EST 04/19/2025 3:19 PM EST Narrative [facility] - 04/19/2025 4:53 PM EST Assay performed by immunoassay at the [facility]. Performed on [employer] chemiluminescent immunoassay, tractable to the World Health Organization's first international standard for PTH from the [facility], Code 79/500. Results obtained from different test methods or kits cannot be used interchangeably. Rupinder Villar APRN LAB BLOOD ORDERABLES Final Res ult [facility] [address] [place] [address] * Magnesium, Plasma (04/19/2025 2:38 PM EST) Magnesium, Plasma 2.0 1.9 - 2.4 mg/dL 04/19/2025 3:15 PM EST [facility] Blood Venous blood specimen / Unknown Venipuncture / Unknown 04/19/2025 2:38 PM EST 04/19/2025 2:47 PM EST Rupinder Villar VETERANS SERVICE REPRESENTATIVE LAB BLOOD ORDERABLES Final Res ult [facility] [address] [place] [address] * Phosphorus, Plasma (04/19/2025 2:38 PM EST) Phosphorus, Plasma 3.3 2.5 - 4.5 mg/dL 04/19/2025 3:15 PM EST [facility] Blood Venous blood specimen / Unknown Venipuncture / Unknown 04/19/2025 2:38 PM EST 04/19/2025 2:47 PM EST us Rupinder José Miguel Villar VETERANS SERVICE REPRESENTATIVE LAB BLOOD ORDERABLES Final Res ult [facility] [address] [place] [address] * (ABNORMAL) Comprehensive Metabolic Panel, Plasma (04/19/2025 2:38 PM EST) Glucose, Plasma 104(H) 74 - 99 mg/dL 04/19/2025 3:15 PM EST [facility] BUN, Plasma 10 8 - 23 mg/dL 04/19/2025 3:15 PM EST [facility] Creatinine, Plasma 0.66 0.60 - 1.10 mg/dL 04/19/2025 3:15 PM EST [facility] BUN/Creatinine Ratio 15 04/19/2025 3:15 PM EST [facility] Sodium, Plasma 141 136 - 145 mmol/L 04/19/2025 3:15 PM EST [facility] Potassium, Plasma 3.5(L) 3.6 - 4.9 mmol/L 04/19/2025 3:15 PM EST [facility] Chloride, Plasma 105 97 - 107 mmol/L 04/19/2025 3:15 PM EST [facility] CO2, Plasma 27 22 - 29 mmol/L 04/19/2025 3:15 PM EST [facility] Anion Gap 9 6 - 16 mmol/L 04/19/2025 3:15 PM EST [facility] Total Calcium, Plasma 9.0 8.9 - 10.2 mg/dL 04/19/2025 3:15 PM EST [facility] Total Protein 6.0(L) 6.3 - 7.9 g/dL 04/19/2025 3:15 PM EST [facility] Albumin, Plasma 3.8 3.5 - 5.2 g/dL 04/19/2025 3:15 PM EST [facility] AST, Plasma 23 10 - 35 U/L 04/19/2025 3:15 PM EST [facility] ALT, Plasma 25 10 - 35 U/L 04/19/2025 3:15 PM EST [facility] Alkaline Phosphatase, Plasma 108 46 - 142 U/L 04/19/2025 3:15 PM EST [facility] Total Bilirubin, Plasma 0.4 0.2 - 1.1 mg/dL 04/19/2025 3:15 PM EST [facility] eGFRcr 98.7 mL/min/1.7 3m*2 04/19/2025 3:15 PM EST [facility] Comment:Reported eGFRcr in m L/min/1.73m2 is based the CKD-EPI 2020 equation that does not use a race coefficient. Blood Venous blood specimen / Unknown Venipuncture / Unknown 04/19/2025 2:38 PM EST 04/19/2025 2:47 PM EST Rupinder Villar APRN LAB BLOOD ORDERABLES Final Res ult Performing Organization Address City/[facility]/ZIP Co de Phone Number [facility] [address] [place] [address] * Bone Specific Alkaline Phosphatase (04/19/2025 2:38 PM EST) Bone Specific Alkaline Phosphatase 13.3 ug/L 04/19/2025 4:58 PM EST [facility] Comment: BSAP (Ostase) Reference Values, Female, age 18 years and up: Premenopausal: 4.5 to 16.9 ug/L Postmenopausal: 7.0 to 22.4 ug/L Blood Venous blood specimen / Unknown Venipuncture / Unknown 04/19/2025 2:38 PM EST 04/19/2025 3:14 PM EST Rupinder Villar APRN LAB REF LAB BLOOD AND FLUID OR D Final Result [facility] [address] [place] [address] * Vitamin D 25 hydroxy (04/19/2025 2:38 PM EST) Vitamin D 25 Hydroxy 24.7 20.0 - 80.0 ng/mL 04/19/2025 5:10 PM EST [facility] Blood Venous blood specimen / Unknown Venipuncture / Unknown 04/19/2025 2:38 PM EST 04/19/2025 3:15 PM EST Narrative [facility] - 04/19/2025 5:10 PM EST Testing performed on [employer], standardized against NIST SRM 2972. When testing [...] to 80 ng/mL Possible toxicity: >100 ng/mL Rupinder Villar APRN LAB BLOOD ORDERABLES Final Res ult Performing Organization Address City/[facility]/ZIP Co de Phone Number [facility] [address] [place] [address] * Troponin T, High Sensitivity, 2 Hour, Plasma (04/19/2025 4:28 AM EST) Troponin T, High Sensitivity, 2 Hour 8 <14 ng/L 04/19/2025 5:17 AM EST [facility] Blood Venous blood specimen / Unknown Venipuncture / Unknown 04/19/2025 4:28 AM EST 04/19/2025 4:47 AM EST Yousif Anderson DO LAB BLOOD ORDERABLES Final R esult Performing Organization Address [facility]/ZIP Co de Phone Number [facility] [address] [place] [address] * CT Femur Left wo IV Contrast [...] ABO/Rh O Positive 04/19/2025 2:57 AM EST [facility] Antibody Screen Negative 04/19/2025 2:57 AM EST [facility] Specimen Expiration 04/22/2025 23:59 04/19/2025 2:57 AM EST [facility] Blood Venous blood specimen / Unknown Venipuncture / Unknown 04/19/2025 2:53 AM EST 04/19/2025 2:57 AM EST Yousif Anderson DO LAB BLOOD BANK TEST ORDERABL ES Final Result [facility] [address] [place] [address], * (ABNORMAL) Opiates Confirm Urine (04/19/2025 2:47 AM EST) Codeine <50 <50 ng/mL 04/22/2025 4:18 AM EST [facility] Codeine Glucuronide <50 <50 ng/mL 04/22/2025 4:18 AM [facility] Desmethyl Tramadol <50 <50 ng/mL 04/22/2025 4:18 AM [facility] EDDP - Methadone Metabolite <50 <50 ng/mL 04/22/2025 4:18 AM [facility] Hydrocodone 302(H) <50 ng/mL 04/22/2025 4:18 AM [facility] Hydromorphone <50 <50 ng/mL 04/22/2025 4:18 AM [facility] Hydromorphone Glucuronide 357(H) <50 ng/mL 04/22/2025 4:18 AM [facility] Comment:Metabolite of Hydrom orphone Meperidine <50 <50 ng/mL 04/22/2025 4:18 AM [facility] Methadone <50 <50 ng/mL 04/22/2025 4:18 AM [facility] 6 Monoacetyl morphine <10 <10 ng/mL 04/22/2025 4:18 AM [facility] Morphine <50 <50 ng/mL 04/22/2025 4:18 AM [facility] Morphine Glucuronide <50 <50 ng/mL 04/22/2025 4:18 AM [facility] Comment:Metabolite of Morphi ne Naloxone <50 <50 ng/mL 04/22/2025 4:18 AM [facility] Naloxone Glucuronide >1,000(H) <50 ng/mL 04/22/2025 4:18 AM [facility] Comment:Metabolite of Naloxo ne Normeperidine <50 <50 ng/mL 04/22/2025 4:18 AM [facility] Tramadol <50 <50 ng/mL 04/22/2025 4:18 AM [facility] Urine Urine specimen obtained by clean catch procedure / Unknown Non-blood Collection / Unknown 04/19/2025 2:47 AM EST 04/19/2025 3:04 AM EST [facility] - 04/22/2025 4:18 AM EST Drug analysis is confirmed by LC-MS/MS (LC Tandem Mass Spectrometry) on Urine specimens. This test was developed and its performance characteristics determined by [facility]. It has not been cleared or approved by the FDA. The laboratory is regulated under CLIA as qualified to perform high-complexity testing. This test is used for clinical purposes. Testing is performed at the [facility]. Julia Choudhury Alisonniel [facility] URINE ORDERABLES Final Result [facility] [address] [place] [address] * (ABNORMAL) Urinalysis with reflex microscopic (Culture NOT Included) (04/19/2025 2:47 AM EST) Color, Urine Yellow LAB URINALYSIS - AUTOMATED METHOD 04/19/2025 3:00 AM [facility] Clarity, Urine Clear LAB URINALYSIS - AUTOMATED METHOD 04/19/2025 3:00 AM EST [facility] Spec [place], Urine >1.030(H) 1.005 - 1.030 LAB URINALYSIS - AUTOMATED METHOD 04/19/2025 3:00 AM EST [facility] pH, Urine 7.5 5.0 - 8.0 LAB URINALYSIS - AUTOMATED METHOD 04/19/2025 3:00 AM [facility] Protein, Urine Negative Negative mg/dL LAB URINALYSIS - AUTOMATED METHOD 04/19/2025 3:00 AM [facility] Glucose, Urine Negative Negative mg/dL LAB URINALYSIS - AUTOMATED METHOD 04/19/2025 3:00 AM [facility] Ketones, Urine Negative Negative mg/dL LAB URINALYSIS - AUTOMATED METHOD 04/19/2025 3:00 AM [facility] Blood, Urine Negative Negative LAB URINALYSIS - AUTOMATED METHOD 04/19/2025 3:00 AM [facility] Bilirubin, Urine Negative Negative LAB URINALYSIS - AUTOMATED METHOD 04/19/2025 3:00 AM [facility] Urobilinogen, Urine 1.0 0.2 to 1.0 mg/dL LAB URINALYSIS - AUTOMATED METHOD 04/19/2025 3:00 AM [facility] Leukocytes, Urine Negative Negative LAB URINALYSIS - AUTOMATED METHOD 04/19/2025 3:00 AM [facility] Nitrite, Urine Negative Negative LAB URINALYSIS - AUTOMATED METHOD 04/19/2025 3:00 AM EST [facility] Urine Urine specimen obtained by clean catch procedure / Unknown Non-blood Collection / Unknown 04/19/2025 2:47 AM EST 04/19/2025 2:58 AM EST Yousif Anderson DO LAB URINE ORDERABLES Final R esult [facility] [address] [place] [address] * Drug abuse screen (04/19/2025 2:47 AM EST) Amphetamine Screen Urine Negative Cutoff: 500 ng/mL 04/19/2025 3:35 AM [facility] Benzodiazepines Screen Urine Negative Cutoff: 200 ng/mL 04/19/2025 3:35 AM [facility] Cannabinoid Screen Urine Negative Cutoff: 50 ng/mL 04/19/2025 3:35 AM [facility] Cocaine Screen Urine Negative Cutoff: 300 ng/mL 04/19/2025 3:35 AM [facility] Barbiturate Screen Urine Negative Cutoff: 200 ng/mL 04/19/2025 3:35 AM [facility] Opiate Screen Urine Presumptive positive. Confirmation by LC-MS/MS to follow. Cutoff: 300 ng/mL 04/19/2025 3:35 AM [facility] Methadone Screen Urine Negative Cutoff: 300 ng/mL 04/19/2025 3:35 AM [facility] Buprenorphine Screen Urine Negative Cutoff: 10 ng/mL 04/19/2025 3:35 AM [facility] Fentanyl Screen Urine Negative Cutoff: 1 ng/mL 04/19/2025 3:35 AM [facility] Oxycodone Screen Urine Negative Cutoff: 100 ng/mL 04/19/2025 3:35 AM [facility] Urine Urine specimen obtained by clean catch procedure / Unknown Non-blood Collection / Unknown 04/19/2025 2:47 AM EST 04/19/2025 3:04 AM EST us Julia Jacobson VETER[employer] SERVICE REPRESENTATIVE LAB URINE ORDERABLES Final Result [facility] [address] [place] [address] * PT-INR (04/19/2025 1:41 AM EST) Prothrombin Time 13.3 12.0 - 14.3 sec 04/19/2025 2:04 AM EST [facility] INR 1.0 0.9 - 1.1 04/19/2025 2:04 AM EST [facility] Blood Venous blood specimen / Unknown Venipuncture / Unknown 04/19/2025 1:41 AM EST 04/19/2025 1:52 AM EST Narrative [facility] - 04/19/2025 2:04 AM EST OPTIMAL INR RANGES FOR PATIENT ON ORAL ANTICOAGULANT THERAPY Prevention of venous thromboembolism INR 2.0 to 3.0 In patients with heart disease: Atrial fibrillation INR 2.0 to 3.0 Valvular heart disease INR 2.0 to 3.0 Tissue heart valves INR 2.0 to 3.0 Mechanical prosthetic valves INR 2.5 to 3.5 Prevention of recurrent [place] INR 2.5 to 3.5 us Yousif Anderson DO LAB BLOOD ORDERABLES Final R esult [facility] [address] [place] [address] * Anti Xa Level Unfractionated Heparin (04/19/2025 1:41 AM EST) Anti Xa Level Unfractionated Heparin <0.11 <1.00 IU/mL 04/19/2025 2:06 AM EST [facility] Blood Venous blood specimen / Unknown Venipuncture / Unknown 04/19/2025 1:41 AM EST 04/19/2025 1:52 AM EST Narrative [facility] - 04/19/2025 2:06 AM EST Therapeutic Range: UFH Full Dose and ACS/[place] protocols*: 0.30 - 0.70 IU/mL UFH Low Dose protocol*: 0.25 - 0.50 IU/mL UFH prophylaxis: Not established Yousif Freitasman DO LAB BLOOD ORDERABLES Final R esult Performing Organization Address [facility] Co de Phone Number [facility] [address] [place] [address] * Troponin now and 120 min (04/19/2025 1:41 AM EST) Troponin T, High Sensitivity, 0 Hour 8 <14 ng/L 04/19/2025 2:25 AM EST [facility] Blood Venous blood specimen / Unknown Venipuncture / Unknown 04/19/2025 1:41 AM EST 04/19/2025 1:58 AM EST us Yousif Freitasman DO LAB BLOOD ORDERABLES Final R esult Performing Organization Address [facility] Phone Number [facility] [address] [place] [address] * EKG now - STAT (adult) (04/19/2025 1:32 AM EST) EKG DIAGNOSIS CLASS Normal MUSE ECG Ventricular Rate 87 BPM MUSE ECG Atrial Rate 87 BPM MUSE ECG HI Interval 140 ms MUSE ECG QRSD Interval 94 ms MUSE ECG QT Interval 388 ms MUSE ECG QTC Interval 466 ms MUSE ECG P [place] 70 degrees MUSE ECG R [place] 47 degrees MUSE ECG T Wave [place] 69 degrees MUSE ECG Diagnosis Normal sinus rhythm MUSE ECG Diagnosis Normal ECG MUSE ECG Diagnosis MUSE ECG Diagnosis Confirmed by Dennis Castaneda ([id number]) on 04/19/2025 9:10:21 AM MUSE ECG 04/19/2025 1:32 AM EST 04/19/2025 9:10 AM EST Yousifleelee Freitasman DO ECG ORDERABLES Final Result Performing Organization Address [facility] Co ri Phone Number MUSE ECG * CT Head wo IV [...] MD on 04/19/2025 2:37 AM us Julia P Gramig V[employer] SERVICE REPRESENTATIVE IMG CT PROCEDURES Final Res ult * [...] osseous lesion. No malalignment. Procedure Note Dennis Ibrahim MD - 04/19/2025 [...] 04/19/2025 3:23 AM us Graciela Chauhan MD IM CT PROCEDURES Final R esult * Salicylate level (04/19/2025 12:51 AM EST) Salicylate, Quantitative, Plasma <1.0 <25 mg/dL mg/dL 04/19/2025 2:29 AM EST [facility] Blood Venous blood specimen / Unknown Venipuncture / Unknown 04/19/2025 12:51 AM EST 04/19/2025 1:00 AM EST Narrative [facility] - 04/19/2025 2:29 AM EST Therapeutic Range: <25 mg/dL Supratherapeutic Level: >30 mg/dL Yousif Almanza [place] DO LAB BLOOD ORDERABLES Final R esult [facility] [address] [place] [address] * (ABNORMAL) Acetaminophen, Quantitative, Plasma (04/19/2025 12:51 AM EST) Acetaminophen <5.0(L) 10.0 - 30.0 g/mL 04/19/2025 2:29 AM EST [facility] Blood Venous blood specimen / Unknown Venipuncture / Unknown 04/19/2025 12:51 AM EST 04/19/2025 1:00 AM EST Narrative [facility] - 04/19/2025 2:29 AM EST Therapeutic: 10 to 30 ug/mL Supratherapeutic: >35 ug/mL Yousif Almanza Anderson DO LAB BLOOD ORDERABLES Final R esult Performing Organization Address City/[facility]/[place] [address] * Free T4, Plasma (04/19/2025 12:51 AM EST) Free T4, Plasma 1.4 0.8 - 1.7 ng/dL 04/19/2025 2:29 AM EST [facility] Blood Venous blood specimen / Unknown Venipuncture / Unknown 04/19/2025 12:51 AM EST 04/19/2025 1:00 AM EST Yousif Almanza [place] DO LAB BLOOD [place] [address] * Thyroid Stimulating Hormone, Plasma (04/19/2025 12:51 AM EST) Thyroid Stimulating Hormone, Plasma 3.08 0.40 - 4.20 uIU/mL 04/19/2025 2:29 AM EST [facility] Blood Venous blood specimen / Unknown Venipuncture / Unknown 04/19/2025 12:51 AM EST 04/19/2025 1:00 AM EST Yousif Anderson DO LAB BLOOD ORDERABLES Final R esult [facility] [address] [place] [address] * ED HIV 1/2 Antibody/Antigen Screen w/Reflex to HIV 1/2 Differentiation (04/19/2025 12:51 AM EST) Pathologist [facility] HIV 1 & 2 Antibody/Antigen Screen Non Reactive Non Reactive 04/19/2025 1:50 AM EST [facility] Comment:Screening for HIV 1 & 2 antibodies, and P24 antigen is NONREACTIVE. No confirmatory testing is required. Blood Venous blood specimen / Unknown Venipuncture / Unknown 04/19/2025 12:51 AM EST 04/19/2025 1:11 AM EST Julia Jacobson APRN LAB BLOOD ORDERABLES Final Result Performing Organization Address City/[facility]/ZIP Co de Phone Number [facility] [address] [place] [address] * Hepatitis C Antibody - ED (04/19/2025 12:51 AM EST) [facility] Hepatitis C Antibody Negative Negative 04/19/2025 1:50 AM EST [facility] Blood Venous blood specimen / Unknown Venipuncture / Unknown 04/19/2025 12:51 AM EST 04/19/2025 1:10 AM EST Julia Jacobosn APRN LAB BLOOD ORDERABLES Final Result [facility] [address] [place] [address] * Ethyl Alcohol Plasma (04/19/2025 12:51 AM EST) [facility] Ethanol Plasma <10 <10 mg/dL 04/19/2025 1:30 AM EST [facility] Blood Venous blood specimen / Unknown Venipuncture / Unknown 04/19/2025 12:51 AM EST 04/19/2025 1:00 AM EST Narrative [facility] - 04/19/2025 1:30 AM EST Enzymatic Assay: Performed on Andrae Jo Ann. us Julia Kei Jacobson APRN LAB BLOOD ORDERABLES Final Result [facility] [address] [place] [address] * (ABNORMAL) Blood gas panel, venous (04/19/2025 12:51 AM EST) pH, Venous 7.34 7.32 - 7.43 LAB HEMATOLOGY METHOD 04/19/2025 1:06 AM EST [facility] pCO2, Venous 50 37 - 52 mmHg LAB HEMATOLOGY METHOD 04/19/2025 1:06 AM EST [facility] pO2, Venous 40 25 - 40 mmHg LAB HEMATOLOGY METHOD 04/19/2025 1:06 AM EST [facility] SO2, Measured, Venous 73 65 - 80 % LAB HEMATOLOGY METHOD 04/19/2025 1:06 AM EST [facility] Base Excess, Venous 0.3 -2.0 - 3.0 mmol/L LAB HEMATOLOGY METHOD 04/19/2025 1:06 AM EST [facility] Bicarbonate, Calculated, Venous 27(H) 22 - 26 mmol/L LAB HEMATOLOGY METHOD 04/19/2025 1:06 AM EST [facility] Hematocrit, Whole Blood 41.6 34.0 - 45.0 % LAB HEMATOLOGY METHOD 04/19/2025 1:06 AM EST [facility] Sodium, Whole Blood 141 136 - 145 mmol/L LAB HEMATOLOGY METHOD 04/19/2025 1:06 AM EST [facility] Potassium, Whole Blood 3.7 3.6 - 4.9 mmol/L LAB HEMATOLOGY METHOD 04/19/2025 1:06 AM EST [facility] Chloride, Whole Blood 106 97 - 107 mmol/L LAB HEMATOLOGY METHOD 04/19/2025 1:06 AM EST [facility] Glucose, Whole Blood 116(H) 74 - 99 mg/dL LAB HEMATOLOGY METHOD 04/19/2025 1:06 AM EST [facility] Lactate, Venous, Whole Blood 1.7 0.5 - 2.2 mmol/L LAB HEMATOLOGY METHOD 04/19/2025 1:06 AM EST [facility] Ionized Calcium, Whole Blood 4.4(L) 4.6 - 5.1 mg/dL LAB HEMATOLOGY METHOD 04/19/2025 1:06 AM EST [facility] Blood Venous blood specimen / Unknown Venipuncture / Unknown 04/19/2025 12:51 AM EST 04/19/2025 1:04 AM EST us Julia Jacobson [employer] SERV[employer] REPRESENTATIVE LAB BLOOD ORDERABLES Final Result [facility] [address] [place] [address] * (ABNORMAL) CBC w/diff (04/19/2025 12:51 AM EST) WBC Count 11.36(H) 3.70 - 10.30 10*3/uL LAB HEMATOLOGY METHOD 04/19/2025 1:04 AM EST [facility] RBC Count 4.30 3.90 - 5.20 10*6/uL LAB HEMATOLOGY METHOD 04/19/2025 1:04 AM EST [facility] HGB 13.0 11.2 - 15.7 g/dL LAB HEMATOLOGY METHOD 04/19/2025 1:04 AM EST [facility] HCT 38.4 34.0 - 45.0 % LAB HEMATOLOGY METHOD 04/19/2025 1:04 AM EST [facility] Platelet Count 256 155 - 369 10*3/uL LAB HEMATOLOGY METHOD 04/19/2025 1:04 AM EST [facility] MCV 89 79 - 98 fL LAB HEMATOLOGY METHOD 04/19/2025 1:04 AM EST [facility] MCH 30.2 26.0 - 32.0 pg LAB HEMATOLOGY METHOD 04/19/2025 1:04 AM EST [facility] MCHC 33.9 30.7 - 35.5 g/dL LAB HEMATOLOGY METHOD 04/19/2025 1:04 AM EST [facility] RDW 12.1 11.5 - 14.5 % LAB HEMATOLOGY METHOD 04/19/2025 1:04 AM EST [facility] MPV 9.0 8.8 - 12.5 fL LAB HEMATOLOGY METHOD 04/19/2025 1:04 AM EST [facility] nRBC 0.0 <=0.0 per 100 WBCs LAB HEMATOLOGY METHOD 04/19/2025 1:04 AM EST [facility] Differential Type Automated LAB HEMATOLOGY METHOD 04/19/2025 1:04 AM [facility] Neutrophils % 83 % LAB HEMATOLOGY METHOD 04/19/2025 1:04 AM EST [facility] Lymphocytes % 11 % LAB HEMATOLOGY METHOD 04/19/2025 1:04 AM EST [facility] Monocytes % 6 % LAB HEMATOLOGY METHOD 04/19/2025 1:04 AM EST [facility] Eosinophils % 0 % LAB HEMATOLOGY METHOD 04/19/2025 1:04 AM EST [facility] Basophils % 0 % LAB HEMATOLOGY METHOD 04/19/2025 1:04 AM [facility] Immature Granulocytes % 0 % LAB HEMATOLOGY METHOD 04/19/2025 1:04 AM EST [facility] Neutrophils Absolute 9.27(H) 1.60 - 6.10 10*3/uL LAB HEMATOLOGY METHOD 04/19/2025 1:04 AM EST [facility] Lymphocytes Absolute 1.27 1.20 - 3.90 10*3/uL LAB HEMATOLOGY METHOD 04/19/2025 1:04 AM EST [facility] Monocytes Absolute 0.72 0.30 - 0.90 10*3/uL LAB HEMATOLOGY METHOD 04/19/2025 1:04 AM [facility] Eosinophils Absolute 0.03 0.00 - 0.50 10*3/uL LAB HEMATOLOGY METHOD 04/19/2025 1:04 AM EST [facility] Basophils Absolute 0.03 0.00 - 0.10 10*3/uL LAB HEMATOLOGY METHOD 04/19/2025 1:04 AM [facility] Immature Granulocytes Absolute 0.04 0.00 - 0.06 10*3/uL LAB HEMATOLOGY METHOD 04/19/2025 1:04 AM [facility] Blood Venous blood specimen / Unknown Venipuncture / Unknown 04/19/2025 12:51 AM EST 04/19/2025 1:01 AM EST [facility] - 04/19/2025 1:04 AM EST Therapeutic decision making should be based on absolute values, rather than percentages. us Julia Jacobson VETER[employer] SERVICE REPRESENTATIVE LAB BLOOD ORDERABLES Final Result [facility] [address] [place] [address] * (ABNORMAL) CMP (04/19/2025 12:51 AM EST) Glucose, Plasma 130(H) 74 - 99 mg/dL 04/19/2025 1:31 AM EST [facility] BUN, Plasma 10 8 - 23 mg/dL 04/19/2025 1:31 AM EST [facility] Creatinine, Plasma 0.71 0.60 - 1.10 mg/dL 04/19/2025 1:31 AM EST [facility] BUN/Creatinine Ratio 14 04/19/2025 1:31 AM EST [facility] Sodium, Plasma 137 136 - 145 mmol/L 04/19/2025 1:31 AM EST [facility] Potassium, Plasma 4.7 3.6 - 4.9 mmol/L 04/19/2025 1:31 AM EST [facility] Comment:Hemolyzed - Potassiu m may be falsely elevated by approximately 0.8-1.7 mmol/L. Chloride, Plasma 103 97 - 107 mmol/L 04/19/2025 1:31 AM EST [facility] CO2, Plasma 24 22 - 29 mmol/L 04/19/2025 1:31 AM EST [facility] Anion Gap 10 6 - 16 mmol/L 04/19/2025 1:31 AM EST [facility] Total Calcium, Plasma 9.1 8.9 - 10.2 mg/dL 04/19/2025 1:31 AM EST [facility] Total Protein 6.4 6.3 - 7.9 g/dL 04/19/2025 1:31 AM EST [facility] Albumin, Plasma 4.0 3.5 - 5.2 g/dL 04/19/2025 1:31 AM EST [facility] AST, Plasma 46(H) 10 - 35 U/L 04/19/2025 1:31 AM EST [facility] Comment:Hemolyzed, result ma y be falsely increased. ALT, Plasma 30 10 - 35 U/L 04/19/2025 1:31 AM EST [facility] Comment:Hemolyzed, result ma y be falsely increased or decreased. Alkaline Phosphatase, Plasma 110 46 - 142 U/L 04/19/2025 1:31 AM EST [facility] Total Bilirubin, Plasma 0.6 0.2 - 1.1 mg/dL 04/19/2025 1:31 AM EST [facility] eGFRcr 95.7 mL/min/1.7 3m*2 04/19/2025 1:31 AM EST [facility] Comment:Reported eGFRcr in m L/min/1.73m2 is based the CKD-EPI 2020 equation that does not use a race coefficient. Blood Venous blood specimen / Unknown Venipuncture / Unknown 04/19/2025 12:51 AM EST 04/19/2025 1:00 AM EST Julia Jacobson APRN LAB BLOOD ORDERABLES Final Result [facility] [address] [place] [address] * XR Knee Left 3 Views (04/19/2025 [...] Gabriela Nelson MD on 04/19/2025 12:40 AM Julia Jacobson VETER[employer] SERVICE REPRESENTATIVE IMG XR PROCEDURES Final Res ult * [...] Gabriela Nelson MD on 04/19/2025 12:40 AM Julia Jacobson VETER[employer] SERVICE REPRESENTATIVE IMG XR PROCEDURES Final Res ult * [...] on 04/19/2025 12:40 AM us Julia Jacobson VETER[employer] SERVICE REPRESENTATIVE IMG XR PROCEDURES Final Res ult * [...] on 04/19/2025 12:40 AM us Julia Jacobson VETER[employer] SERVICE REPRESENTATIVE IMG XR PROCEDURES Final Res ult * (ABNORMAL) POCT glucose meter (04/18/2025 11:27 PM EST) POCT Glucose 133(H) 74 - 99 mg/dL 04/18/2025 11:28 PM EST [facility] Comment:Accuracy of a glucos e result [...] for testing. Comment 04/18/2025 11:28 PM EST [facility] Customer Business Manager ID Kiara Dobbs 04/18/2025 11:28 PM EST [facility] Device ID [id number] 04/18/2025 11:28 PM EST [facility] Specimen Type POC Capillary 04/18/2025 11:28 PM EST [facility] Blood Capillary blood specimen / Unknown 04/18/2025 11:27 PM EST 04/18/2025 11:28 PM EST us Generic Provider Poct LAB POINT OF CARE TEST DOCKED DEVICE UNSOLICITED RESULTS Final Result Performing Organization Address City/State/[facility] Co de Phone Number [facility] [address] [place] [id number] documented in this encounter Visit Diagnoses Diagnosis [...] Coronary atherosclerosis of unspecified type of vessel, [place] or graft Heart failure Unspecified heart failure [...] initial encounter Hyperkalemia Hyperpotassemia Fall, initial encounter 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, initial encounter documented in this encounter Admitting Diagnoses Diagnosis [...] Given 04/25/2025 3:44 PM EST 10 mg cariprazine (Vraylar) capsule 1.5 mg 1.5 mg, Oral, Daily, First dose on Sat04/22/25 at 1100, Until Discontinued, Routine Given 04/26/2025 9:17 AM EST 1.5 mg Given 04/25/2025 9:02 AM EST 1.5 mg Given 04/24/2025 8:11 AM EST 1.5 mg dicyclomine (Bentyl) tablet 20 mg 20 mg, [...] Given 04/25/2025 9:02 AM EST 20 mg folic acid (Folvite) tablet 1 mg 1 mg, Oral, Daily, First dose on Sat04/19/25 at 0810, Until Discontinued, Routine Given 04/26/2025 9:15 AM EST 1 mg Given 04/25/2025 9:02 AM EST 1 mg Given 04/24/2025 8:11 AM EST 1 mg hydrOXYzine pamoate (Vistaril) capsule 25 mg [...] Given 04/24/2025 8:11 AM EST 1 packet metoprolol succinate XL (Toprol-XL) 24 hr tablet [...] 1 tablet, Oral, Daily, First dose on Sat04/24/25 at 1115, Until Discontinued, Routine Given 04/26/2025 9:16 AM EST 1 tablet Given 04/25/2025 9:02 AM EST 1 tablet Given 04/24/2025 11:37 AM EST 1 tablet ondansetron ODT (Zofran-ODT) disintegrating tablet 4 mg 4 mg, Oral, Every 6 hours PRN, Starting on Sat04/22/25 at 1159, Until Sat04/26/25 at 1514, Routine, [...] on Sat04/24/25 at 2100, Until Discontinued, Routine QUEtiapine (SEROquel) tablet 75 mg 75 mg, [...] Until Sat04/26/25 at 1514, Routine, line care thiamine (Vitamin B-1) tablet 100 mg 100 mg, Oral, Daily, First dose on Sat04/23/25 at 0900, Until Discontinued, Routine Given 04/26/2025 9:15 AM EST 100 mg Given 04/25/2025 9:02 AM EST 100 mg Given 04/24/2025 8:11 AM EST 100 mg topiramate (Topamax) tablet 50 mg 50 [...] Given 04/23/2025 8:35 PM EST 50 mg venlafaxine XR (Effexor-XR) 24 hr capsule 75 [...] Doreen Villalobos RN)2316 (Given - Provider: Robyn Clark, MAGDALENO) 0537 (Given - Provider: Robyn Clark RN)1112 (Given - Provider: Doreen Villalobos RN)1705 (Given - Provider: Doreen Villalobos RN) 0006 (Given - Provider: Robyn Clark RN)0700 (Given - Provider: Robyn Clark RN)1158 (Given - Provider: Shonda Pearson RN) atorvastatin [...] 0811 (Given - Provider: Doreen Villalobos RN) 0902 (Given - Provider: Doreen Villalobos RN) 0917 (Given - Provider: Shonda Pearson RN) dicyclomine (Bentyl) tablet 20 mg 20 mg, Oral, 2 times daily, First dose on Sat04/21/25 at 1230, Until Discontinued, Routine 0810 (Given - Provider: Doreen Villalobos RN)2100 (Given - Provider: Robyn Clark RN) 0901 (Given - Provider: Doreen Villalobos RN)2129 (Given - Provider: Robyn Clark RN) 0916 (Given - Provider: Shonda Pearson RN) enoxaparin (Lovenox) syringe 30 mg 30 mg, Subcutaneous, 2 times daily, 50 doses, First dose on Sat04/21/25 at 1200, Last dose on Sat05/15/25 at 2100, Routine 0810 (Given - Provider: Doreen Villalobos RN)2141 (Given - Provider: Robyn Clark RN) 900 (Given - Provider: Doreen Villalobos RN)2121 (Given - Provider: Robyn Clark RN) 09 (Given - Provider: Shonda Pearson RN) famotidine [...] 09 (Given - Provider: Shonda Pearson RN) [place] powder 1 packet 1 packet, Oral, 2 times daily, First dose on Sat04/19/25 at 1430, Until Discontinued, Routine 08 (Given - Provider: Doreen Villalobos RN)2099 (Not Given - Provider: Robyn Clark RN - Reason: Patient/family refused) 09 (Given - Provider: Doreen Villalobos RN)2099 (Not Given - Provider: Robyn Clark RN - Reason: Patient/family refused) 09 (Given - Provider: Shonda Pearson RN) magnesium sulfate IVPB 2 g (COMPLETED) 2 [...] RN)2099 (Given - Provider: Robyn Clark RN) 901 (Given - Provider: Doreen Villalobos RN)2125 (Given - Provider: Robyn Clark RN) 916 (Given - Provider: Shonda Pearson, MAGDALENO) montelukast (Singulair) tablet 10 mg 10 mg, Oral, Nightly, First dose on Sat04/20/25 at 2100, Until Discontinued, Routine 2141 (Given - Provider: Robyn Clark RN) 2119 (Given - Provider: Robyn Clark, MAGDALENO) multivitamin tablet 1 tablet 1 tablet, Oral, Daily, First dose on Sat04/24/25 at 1115, Until Discontinued, Routine 1137 (Given - Provider: Doreen Villalobos RN) 901 (Given - Provider: Doreen Villalobos RN) 0916 (Given - Provider: Shonda Pearson RN) mupirocin (Bactroban) 2 % ointment 1 Application [...] Robyn Clark RN - Reason: Patient/family refused) 916 (Not Given - Provider: Shonda Pearson RN [...] Routine 08 (Given - Provider: Doreen Villalobos RN)2099 (Given - Provider: Robyn Clark RN) 09 (Given - Provider: Doreen Villalobos RN)2128 (Given - Provider: Robyn Clark RN) 09 (Given - Provider: Shonda Pearson RN) rOPINIRole (Requip) tablet 2 mg 2 mg, [...] 0811 (Given - Provider: Doreen Villalobos RN) 0902 (Given - Provider: Doreen Villalobos RN) 0915 (Given - Provider: Shonda Peasron RN) topiramate (Topamax) tablet 50 mg 50 mg, Oral, Daily, First dose on Sat04/21/25 at 1230, Until Discontinued, Routine 0811 (Given - Provider: Doreen Villalobos RN) 0901 [...] 0811 (Given - Provider: Doreen Villalobos RN) 0901 (Given - Provider: Doreen Villalobos RN) 0916 (Given - Provider: Shonda Pearson, MAGDALENO) PRN Medication Order 04/24/2025 04/25/2025 04/26/2025 hydrOXYzine pamoate (Vistaril) capsule 25 mg 25 mg, Oral, Every 8 hours PRN, Starting on Tu04/20/25 at 1152, Until Sat04/26/25 at 1514, Routine, anxiety 2119 (Given - Provider: Robyn Clark, MAGDALENO) ondansetron ODT (Zofran-ODT) disintegrating tablet 4 mg 4 mg, Oral, Every 6 hours PRN, Starting on Rosalie 04/22/25 at 1159, Until Sat04/26/25 at 1514, Routine, nausea, vomiting oxyCODONE (Roxicodone) immediate release tablet 10 mg(Linked Group 2) 10 mg, Oral, Every 4 hours PRN, Starting on Sat04/21/25 at 2128, Until Sat04/26/25 at 1514, Routine, severe pain 1352 (See Alternative - Provider: Doreen Villalobos RN)2317 (See Alternative - Provider: Robyn Clark, MAGDALENO) 2119 (Given - Provider: Robyn Clark, MAGDALENO) 1215 (Given - Provider: Shonda Pearson, MAGDALENO - Comment: or hour long transport home) [...] Doreen Villalobos RN)2318 (Given - Provider: Robyn Clark, MAGDALENO) 2119 (See Alternative - Provider: Robyn Clark RN) 1215 (See Alternative - Provider: Shonda Pearson, MAGDALENO) sodium chloride 0.9 % flush 10 mL(Linked [...] documented as of this encounter Care Teams Charge Preparation Technician Relationship Specialty Start Date End Date Tho Bowden MD [address] [place] [address] PCP - General 10/28/20 documented as of this encounter
--- OUTSIDE RECORDS SUMMARY | 2025-04-21 14:38 | XMS_ITS | Encounter Summary ---
Author Organization Healthcare Address [address] [place] [address] Care Team Providers Care Contract Specialist Name Role Phone Tho Bowden MD Primary Care Provider [phone] Reason for Visit * Auth/Cert (Routine) Specialty Diagnoses / Procedures Referred By Contac t Referred To Contact Diagnoses Polypharmacy Fall, initial encounter 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, initial encounter Fall at home, initial encounter Altered mental status, unspecified altered mental status type fall, periprosthetic left distal femur fracture Yaneli Trimble MD [address] [place] [address] Phone: tel: fax: [facility] [address] [place] [address] Phone: tel: Referral ID Status Reason Start Date Expiration Date Visits Re quested Visits Authorized [id number] 1 1 Encounter Details Date Type Department Care Team (Late st Contact Info) Description 04/21/2025 2:38 PM EST Anesthesia Event [facility] [address] [place] [address] Yasir Juarez MD [address] [place] [address] Olimpia Wan PA [address] [place] [address] Anesthesia Record Procedure Summary Procedure Name Responsible Anesthesiologist Anesthesia Start Time Anesthesia Stop Time ORIF, FRACTURE, FEMUR, DISTAL (Left: Leg Upper) Yasir Juarez MD 04/21/25 1438 04/21/25 1754 Events Date Time Event Comment 04/21/2025 1338 1438 In Room 1438 An Start The patient was reevaluated immediately before sedation and remains eligible for anesthesia plan. 1438 An Start Data 1446 An Induction The patient was reevaluated immediately before moderate or deep sedation use and before anesthesia induction. 1449 An Intubation 1502 Anesthesia Ready 1520 An Tourn Inflated 1521 Proc Start 1710 An Tourn Deflated 1719 Alveolar Recruitment Maneuve r Alveolar recruitment maneuver performed with 35 cm H2O 30 seconds Performed Once 1723 Alveolar Recruitment Maneuve r Alveolar recruitment maneuver performed with 35 cm H2O 30 seconds Performed Once 1732 Proc Fin 1743 An Extubation 1743 an stop data 1746 Out of Room 1754 Handoff to Receiving I compl eted my handoff to the receiving clinician during which we: 1. Identified the patient 2. Identified the responsible provider 3. Reviewed the pertinent medical history 4. Discussed the surgical course 5. Reviewed intra-op anesthesia management and issues during anesthesia 6. Set expectations for post-procedure period 7. Allowed opportunity for questions and acknowledgement of understanding. 175 An Stop Meds Name Total fentaNYL (Sublimaze) injection 50 mcg/mL 200 mcg propofol (Diprivan) injection 10 mg/mL 1 10 mg rocuronium (ZeMuron) injection 10 mg/mL 100 mg ondansetron (Zofran) injection 2 mg/mL 4 mg sugammadex (Bridion) injection 100 mg/mL 200 mg HYDROmorphone 1 MG/ML 1 mg Lidocaine HCl 100 MG/5ML 60 mg ceFAZolin (Ancef) vial 1 g 2 g lactated Ringer's infusion 1,050 mL * Agents Name O2 N2O Air Sevoflurane Isoflurane Desflurane Inspired Desflurane Inspired Isoflurane Inspired Sevoflurane N2O Inspired N2O * Blood No blood administrations on file. Lines, Drains, and Airways Type Details Placement Removal Wound 04/21/25; 1530; Yes; Surgical; Closed Surgi; Leg; Anterior, Left, Upper 04/21/25 1530 by Mandy Benedict RN Peripheral IV Placement Date: 09/08; Placement Time: 1614; Catheter Size: 20 G; Orientation: Anterior, Left, Proximal; Location: Forearm; Technique: Anatomical landmarks; Inserted by: PALMER RN; Removal Date: 04/26/25; Removal Time: 1044 04/19/25 1614 by Semaj Nix RN 04/26/25 1044 by Shonda Pearson RN ETT Placement Date: 11/08; Placement Time: 1449 (created via procedure documentation); Mask Ventilation: 0; Technique: Direct laryngoscopy; Type: ETT - single; Single Lumen Tube Size: 7 mm; Cuffed: Yes; Laryngoscope: Bullard; Blade Size: 2; Location: Oral; Grade View: Grade I; Insertion Attempts: 1; Placed by: XUAN; Removal Date: 04/21/25; Removal Time: 17404/21/25 1449 by Aishwarya Manzano CRNA 04/21/25 1743 by Amauri Quinn MD Peripheral IV Placement Date: 11/08; Placement Time: 1455 (created via procedure documentation); Catheter Size: 18 G; Orientation: Right; Location: Arm; Technique: Anatomical landmarks; Inserted by: Aishwarya Manzano CRNA; Insertion Attempts: 1; Removal Date: 04/25/25; Removal Time: 0600; Removal Reason: Leaking 04/21/25 145 by Aishwarya Manzano CRNA 04/25/25 0600 by Doreen Villalobos RN documented in this encounter Social History Tobacco Use Types Packs/Day Years Used Date Smoking Tobacco: Never Smokeless Tobacco: Never Alcohol Use Standard Drinks/Week Comments [...] any time in the past 12 m ont, were you homeless or living in a skilled nursing (including now)? No 04/19/2025 [facility] Utilities Answer Date Recorded In the past 12 months has th e [employer], gas, oil, or water [employer] threatened to shut off services in your home? No 04/19/2025 Comments No Sex and Gender Information Value Date Recorded Sex Assigned at Not on file Legal Sex Female 6:39 PM EDT Gender Identity Not on file Sexual Orientation Not on file documented as of this encounter Functional Status * Calculated C-SSRS Risk Score (Lifetime/Recent) Answer Date of Assessment Author No Risk Indicated 04/22/2025 9:00 AM Erasmo Carson RN * Question Answer Date of Assessment Author 1. Wish to be (Past 1 Month) No 025 9:00 AM Annie Carson RN 2. Non-Specific Active Suici sangita Thoughts (Past 1 Month) No 04/22/2025 9:00 AM Annie Carson RN 6. Suicidal Behavior (Lifetime) No 9:00 AM Annie Carson RN documented as of this encounter Miscellaneous Notes * Anesthesia Postprocedure Evaluation - Amauri Quinn MD - 04/21/2025 5:54 PM EST Patient: Parul Leone Anesthesia Type: general Vitals Value Taken Time BP 134/86 04/21/25 17:50 Temp 98.9 04/21/25 17:54 Pulse 97 04/21/25 17:53 Resp 13 04/21/25 17:54 SpO2 95 % 04/21/25 17:53 Vitals shown include unfiled device data. Anesthesia Post Evaluation Patient location during evaluation: PACU Patient participation: complete - patient participated Level of consciousness: awake Pain management: adequate (pain score 0-3) Airway patency: natural airway Cardiovascular status: acceptable and hemodynamically stable Respiratory status: acceptable, face mask, nonlabored ventilation and spontaneous ventilation Hydration status: acceptable Nausea/Vomiting: No No notable events documented. Cosigned by Matt Merritt MD at 04/22/2025 8:57 AM EST Associated attestation - Matt Merritt MD - 04/22/2025 8:57 AM EST I agree with the findings and care plan documented in the postprocedure evaluation note. * Anesthesia Procedure Notes - Aishwarya Manzano CRNA - 04/21/2025 3:04 PM EST Associated Order(s): Peripheral IV Peripheral IV Date/Time: 04/21/2025 2:55 PM Inserted by: Aishwarya Manzano CRNA Placement Needle size: 18 G Location: arm Site prep: alcohol Technique: anatomical landmarks Attempts: 1 * Anesthesia Procedure Notes - Aishwarya Manzano CRNA - 04/21/2025 3:04 PM EST Associated Order(s): Airway Airway Date/Time: 04/21/2025 2:49 PM Reason: elective Airway not difficult General Information and Staff Patient location during procedure: OR BACON DE RINDER: Aishwarya Manzano CRNA Performed: BACON DE RINDER Patient Condition Indications for airway management: anesthesia Final Airway Details Final airway type: endotracheal airway Successful airway: ETT Cuffed: yes Successful intubation technique: direct laryngoscopy Adjuncts used in placement: intubating stylet Endotracheal tube insertion site: oral Blade: Bullard Blade size: #2 ETT size (mm): 7.0 Cormack-Lehane Classification: grade I - full view of glottis Measured from: lips * Anesthesia Preprocedure Evaluation - Yasir Juarez MD - 04/21/2025 8:24 AM EST Images from the original note were not included. Procedure Information Date/Time: 04/21/25 1535 Procedure: ORIF, FRACTURE, FEMUR, DISTAL (Left: Leg Upper) - Supine, pancho, sterile traction avail, triangles avail, c-arm, ortho trauma tool box, ortho soft tissue, globus distal femur plates Location: [facility] / [facility] Surgeons: Wai Motley MD HPI Parul Leone is a 64 y.o. female with body mass index is 22.89 kg/m??. who presents with Fall at home, initial encounter (mechanical fall on 04/17/2025, walking to her home. She fell into a hole in the yard), presented also with new aphasia, concerning for stroke. Neuro consulted, initially recommended MRI head but on subsequent eval did not recommend further neuro workup, low concern for stroke.Did recommend ECHO bubble study completed - no sign of shunt. Now for above procedure PMH: HTN, migraines, osteopenia, arthritis, CAD s/p stent (on Plavix), Heart failure pEF, HLD, asthma/ COPD, urge incontinence, chronic back pain, vit D deficiency, s/p gastric bypass, depression, RLS, sleep disordered breathing, IBS ECHO 04/20: LVEF 64%, no significant valvular abnormalities. 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 rate 18, height 1.6 m (5' 2.99 ), weight 58.6 kg (129 lb 3 oz), SpO2 97%. LABS Lab Results Component Value Date WBC [...] HGBA1C 5.3 04/19/2025 GLUCOSE 105 (H) 04/20/2025 EKG Encounter Date: 04/18/25 EKG now - STAT (adult) Result Value EKG DIAGNOSIS CLASS Normal Ventricular Rate 87 Atrial Rate 87 ME Interval 140 QRSD Interval 94 QT Interval 388 QTC Interval 466 P Fombell 70 R Fombell 47 T Wave Fombell 69 Diagnosis Normal sinus rhythm Diagnosis Normal ECG Diagnosis Diagnosis Confirmed by Dennis Castaneda ([id number]) on 04/19/2025 9:10:21 AM *Note: Due to a large number of results and/or encounters for the requested time period, some results have not been displayed. A complete set of results can be found in Results Review. ECHO Echo, Adult Transthoracic (TTE) Limited Result Date: 04/21/2025 Left Atrium: The interatrial septum is intact with no evidence for an atrial septal defect. Intravenous injection of agitated saline demonstrates no evidence of intracardiac or intrapulmonary shunt. Compared to the most recently available prior study, and allowing for differences in image quality and technique, there is no significant interval change noted. Echo, Adult Transthoracic Complete Result Date: 04/20/2025 [...] is no recent study available for direct [id number]-yz-[id number] comparison. ECHO 06/2024 OSH (in media) Normal systolic function, LVEF 55%, normal diastolic function Mild RV dilation. Mild biatrial dilation. No significant valve disease. [facility] 07/28/24: (in media) Widely patent proximal [...] Mouth opening: normal TM distance: >3 FB Neck ROM: full Cardiovascular Rhythm: regular Rate: normal Dental (+) upper dentures, edentulous Pulmonary Breath sounds clear to auscultation Neurological Oriented: normal to time, normal to place and normal to person Skin Musculoskeletal (+) fracture Extremities Anesthesia Plan ASA 3 Plan was reviewed with: BACON DE RINDER Anesthesia technique(s) discussed with the patient/family: general Anesthesia plan agreed upon was: general Anesthetic plan and risks discussed with patient. Use of blood products discussed with patient who consented to blood products. ROS Anesthesia: history of previous anesthesia. Does not have a history of anesthetic complications and PONV. Anesthesia ROS additional comments: sleep disordered breathing Cardiovascular: CAD, CHF and hyperlipidemia. hypertension: Cardio additional comments: Pt follows with Dr. Gonzales Church Warden at [facility], last seen 10/2024 and had echo 06/2024 [...] [2] acetaminophen, 1,000 mg, Oral, q6h OLENA atorvastatin, 80 mg, Oral, Daily baclofen, 5 mg, Oral, TID dicyclomine, 20 mg, Oral, BID enoxaparin, 30 mg, Subcutaneous, BID famotidine, 20 mg, Oral, BID folic acid, 1 mg, Oral, Daily Kenney, 1 packet, Oral, BID metoprolol succinate XL, 12.5 mg, Oral, Daily mometasone-formoterol, 2 puff, Inhalation, BID montelukast, 10 mg, Oral, Nightly mupirocin, 1 Application, Each Nostril, BID polyethylene glycol, 17 g, Oral, Daily ranolazine, 500 mg, Oral, BID rOPINIRole, 2 mg, Oral, Nightly senna-docusate, 1 tablet, Oral, Nightly Insert peripheral IV, , , Once AND Saline lock IV, , , Once AND sodium chloride, 10 mL, Intravenous, q12h AND sodium chloride, 10 mL, Intravenous, PRN [START ON 04/23/2025] thiamine, 100 mg, Oral, Daily thiamine, 200 mg, Oral, q8h topiramate, 50 mg, Oral, Daily traZODone, 50 mg, Oral, Nightly venlafaxine XR, 75 mg, Oral, Daily [3] PRN medications: hydrOXYzine pamoate, oxyCODONE, Insert peripheral IV AND Saline lock IV AND sodium chloride AND sodium chloride [4] Past Surgical History: Procedure Laterality Date CATH STENT PLACEMENT/ CATH PLACEMENT OF STENT N/A Cath Stent Placement from [facility] CHOLECYSTECTOMY N/A Cholecystectomy from [facility] GASTRIC BYPASS N/A Gastric Surgery from [facility] HYSTERECTOMY N/A Hysterectomy from [facility] TUBAL LIGATION N/A Tubal Ligation from [employer] [5] Social History Tobacco Use Smoking status: Never Substance Use Topics Alcohol use: Never documented in this encounter Plan of Treatment Upcoming Encounters Date Type Department Care Team (Late st Contact Info) Description 06/21/2025 9:30 AM EST Appointment [facility] Radiology [address] [place] [address] 06/21/2025 10:10 AM EST Office Visit [facility] Orthopaedic Surgery & Sports Medicine [address] [place] [address] [place] [address] Wai Motley MD [address] [facility] [address] [place] [address] documented as of this encounter Procedures Procedure Name Priority Date/Time Associated Diagnosis Comments ANESTHESIA PERIPHERAL IV PLACEMENT Routine 04/21/2025 2:55 PM EST PB ANESTHESIA PLACEHOLDER Routine 04/21/2025 2:49 PM EST ME AN ELECTIVE ENDOTRACHEAL AIRWAY Routine 04/21/2025 2:49 PM EST documented in this encounter Results * Peripheral IV (04/21/2025 2:55 PM EST) Narrative Aishwarya Manzano CRNA - 04/21/2025 2:55 PM EST Aishwarya Manzano CRNA 04/21/2025 3:04 PM Peripheral IV Date/Time: 04/21/2025 2:55 PM Inserted by: Aishwarya Manzano CRNA Placement Needle size: 18 G Location: arm Site prep: alcohol Technique: anatomical landmarks Attempts: 1 Yasir Juarez MD ANESTHESIA ORDERABLES Final R esult * ME AN ELECTIVE ENDOTRACHEAL AIRWAY, PB ANESTHESIA PLACEHOLDER (04/21/2025 2:49 PM EST) Narrative Aishwarya Manzano CRNA - 04/21/2025 2:49 PM EST Aishwarya Manzano CRNA 04/21/2025 3:04 PM Airway Date/Time: 04/21/2025 2:49 PM Reason: elective Airway not difficult General Information and Staff Patient location during procedure: OR BACON [place] RINDER: Aishwarya Manzano CRNA Performed: XUAN Patient Condition Indications for airway management: anesthesia Final Airway Details Final airway type: endotracheal airway Successful airway: ETT Cuffed: yes Successful intubation technique: direct laryngoscopy Adjuncts used in placement: intubating stylet Endotracheal tube insertion site: oral Blade: Bullard Blade size: #2 ETT size (mm): 7.0 Cormack-Lehane Classification: grade I - full view of glottis Measured from: lips us Yasir Juarez MD ANESTHESIA ORDERABLES Final R esult documented in this encounter Visit Diagnoses Not on filedocumented in this encounter Administered Medications Inactive Administered Medications - up to 3 most recent administrations Medication Order MAR Action Action Date Dose Rate Site ceFAZolin (Ancef) injection Intravenous, As needed, Starting on Sat04/21/25 at 1507, Until Sat04/21/25 at 1754, Routine, Anesthesia Intraprocedure Given 04/21/2025 3:07 PM EST 2 g fentaNYL (Sublimaze) injection Intravenous, As needed, Starting on Sat04/21/25 at 1443, Until Sat04/21/25 at 1754, Routine, Anesthesia Intraprocedure Given 04/21/2025 4:49 PM EST 50 mcg Given 04/21/2025 4:40 PM EST 50 mcg Given 04/21/2025 3:26 PM EST 50 mcg HYDROmorphone (Dilaudid) injection Intravenous, As needed, Starting on Sat04/21/25 at 1515, Until Sat04/21/25 at 1754, Routine, Anesthesia Intraprocedure Given 04/21/2025 3:15 PM EST 1 mg lactated Ringer's infusion Intravenous, Continuous PRN, Starting on Sat04/21/25 at 1438, Until Sat04/21/25 at 1754, Routine New Bag 04/21/2025 5:26 PM EST New Bag 04/21/2025 2:38 PM EST Lidocaine HCl prefilled syringe Buccal, As needed, Starting on Sat04/21/25 at 1446, Anesthesia Intraprocedure Given 04/21/2025 2:46 PM EST 60 mg ondansetron (Zofran) injection Intravenous, As needed, Starting on Sat04/21/25 at 1714, Until Sat04/21/25 at 1754, Routine, Anesthesia Intraprocedure Given 04/21/2025 5:14 PM EST 4 mg propofol (Diprivan) injection Intravenous, As needed, Starting on Sat04/21/25 at 1446, Until Sat04/21/25 at 1754, Routine, Anesthesia Intraprocedure Given 04/21/2025 4:49 PM EST 30 mg Given 04/21/2025 2:46 PM EST 80 mg rocuronium (ZeMuron) injection Intravenous, As needed, Starting on Sat04/21/25 at 1446, Until Sat04/21/25 at 1754, Routine, Anesthesia Intraprocedure Given 04/21/2025 4:49 PM EST 15 mg Given 04/21/2025 4:39 PM EST 10 mg Given 04/21/2025 3:59 PM EST 10 mg sugammadex (Bridion) 100 MG/ML injection Intravenous, As needed, Starting on Sat04/21/25 at 1735, Until Sat04/21/25 at 1754, Routine, Anesthesia Intraprocedure Given 04/21/2025 5:41 PM EST 100 mg Given 04/21/2025 5:35 PM EST 100 mg documented in this encounter Additional Health Concerns Assessment Noted Time A Body Mass Index follow-up plan has been documented for the patient 04/26/2025 11:27 AM EST documented as of this encounter Care Teams Contract Specialist Relationship Specialty Start Date End Date Tho Bowden MD [address] [place] [address] PCP - General 10/28/20 documented as of this encounter
--- OUTSIDE RECORDS SUMMARY | 2025-05-11 11:50 | XMS_ITS | Encounter Summary ---
Author Organization Healthcare Address [address] [place] [address] Care Team Providers Care Carport Erector Name Role Phone Tho Bowden MD Primary Care Provider [phone] Reason for Visit * Reason Comments Post-op Encounter Details Date Type Department Care Team (Late st Contact Info) Description 05/11/2025 11:50 AM EST Office Visit [facility] Orthopaedic Surgery & [facility] Medicine [address] [place] [address] Robina James N, BEHAVIORAL HEALTH CASE MANAGER [address] [place] [address] Closed fracture of distal end of left femur with routine healing, unspecified fracture morphology, subsequent encounter (Primary Dx) Social History Tobacco Use Types Packs/Day Years [...] any time in the past 12 m [facility], were you homeless or living in a penitentiary (including now)? No 04/19/2025 [facility] Utilities Answer Date Recorded In the past 12 months has th e [employer], gas, oil, or water company threatened to shut off services in your home? No 04/19/2025 Comments No Sex and Gender Information Value Date Recorded Sex Assigned at Not on file Legal Sex Female 6:39 PM EDT Gender Identity Not on file Sexual Orientation Not on file documented as of this encounter Last Filed Vital Signs Vital Sign Reading Time Taken Comments Blood Pressure 106/73 05/11/2025 11:05 AM EST Pulse 93 05/11/2025 11:05 AM EST Temperature 36.8 C (98.3 F) 05/11/2025 11:05 AM EST Respiratory Rate - - Oxygen Saturation 95% 05/11/2025 11:05 AM EST Inhaled Oxygen Concentration - - Weight - - Height - - Body Mass Index - - documented in this encounter Miscellaneous Notes * Progress Notes - Robina James APRN - 05/11/2025 11:50 AM EST CC: L adrianne-prosthetic distal femur fx s/p ORIF on 04/21/[address] Motley HPI: Parul Leone is a 64 y.o. female with multiple chronic medical co- morbidities who presents to clinic for evaluation from the above injury/and or procedure. The patient sustained a fall on 04/17 and was taken to an OSH for a stroke work up that end up being negative however she was found to havethe above fracture. She was transferred to on 04/18 for a higher level of Orthopedic care. Today she reports she is doing well ambulating with a walker and is getting ready to start PT at [facility]. Physical Assessment: No acute distress Non labored breathing Peripheral perfusion intact Focused MSK exam: Left lower extremity: Well-healed surgical incisions Minimal edema to knee Knee ROM 15-90 degrees of flexion Fires EHL/FHL/GSC/TA SILT s/s/sp/dp/t Toes WWP Vitals: 05/11/25 1105 BP: 106/73 Pulse: 93 Temp: 36.8 ??C (98.3 ??F) SpO2: 95% XRAY: no imaging ordered today Assessment: Parul Leone is a 64 y.o. female with a L adrianne-prosthetic distal femur fx s/p ORIF on 04/21/[address] Motley Plan: -sutures removed -WB Status: WBAT LLE ROMAT -Continue PT as scheduled for gait training and strengthening -Follow up in 1 month with imaging with Dr. Motley -The patient was given an opportunity to ask questions and all their questions were answered to their satisfaction. Robina James APRN Orthopedic Trauma Nurse Practitioner Department of Orthopedic Surgery and Sports Medicine documented in this encounter Plan of Treatment Upcoming Encounters Date Type Department Care Team (Late st Contact Info) Description 06/21/2025 9:30 AM EST Appointment [facility] Radiology [address] [place] [address] 06/21/2025 10:10 AM EST Office Visit [facility] Orthopaedic Surgery & Sports Medicine [address] [place] [address] Wai Motley MD [address] [place] [address] Scheduled Orders Name Type Priority Associated Diagnoses Orde r Schedule XR Femur Left 2+ Views Imaging Routine Closed fracture of distal end of left femur with routine healing, unspecified fracture morphology, subsequent encounter 1 Occurrences starting 05/11/2025 until 11/12/2026 documented as of this encounter Visit Diagnoses Diagnosis Closed fracture of distal end of left femur with routine healing, unspecified fracture morphology, subsequent encounter- Primary documented in this encounter Additional Health Concerns Assessment Noted Time A fall risk assessment has been complete d for the patient 05/11/2025 11:07 AM EST A Body Mass Index follow-up plan has been documented for the patient 05/11/2025 12:02 PM EST documented as of this encounter Care Teams Carport Erector Relationship Specialty Start Date End Date Tho Bowden MD [address] [place] [id number] PCP - General 10/28/20 documented as of this encounter
--- OUTSIDE RECORDS SUMMARY | 2025-05-17 10:21 | XMS_ITS | Encounter Summary ---
Author Organization Healthcare Address [address] [place] [address] Care Team Providers Care Bindery Helper Name Role Phone Tho Bowden MD Primary Care Provider +1 [phone] Encounter Details Date Type Department Care Team (Latest Contact Info) Description 05/11/2025 Travel Social History Tobacco Use Types Packs/Day Years [...] any time in the past 12 m [facility], were you homeless or living in a correction (including now)? No 04/19/[address] [facility] Utilities Answer Date Recorded In the [...] on file documented as of this encounter Plan of Treatment Upcoming Encounters Date Type Department Care Team (Late st Contact Info) Description 06/21/2025 9:30 AM EST Appointment [facility] Radiology [address], 1st [place] [address] 06/21/2025 10:10 AM EST Office Visit [facility] Orthopaedic Surgery & Sports Medicine [address], [address] [place] [address] Wai Motley MD [address] [place] [address] documented as of this encounter Visit Diagnoses Not on filedocumented in this encounter Additional Health Concerns Assessment Noted Time A fall risk assessment has been complete d for the patient 05/11/2025 11:07 AM EST A Body Mass Index follow-up plan has been documented for the patient 05/11/2025 12:02 PM EST documented as of this encounter Care Teams Bindery Helper Relationship Specialty Start Date End Date Tho Bowden MD [address] [place] [address] PCP - General 10/28/20 documented as of this encounter
--- OUTSIDE RECORDS SUMMARY | 2025-05-17 10:22 | XMS_ITS | Encounter Summary ---
Author Organization Healthcare Address [address] [place] [address] Care Team Providers Care Photo Checker And Assembler Name Role Phone Tho Bowden MD Primary Care Provider +1- [phone] Encounter Details Date Type Department Care Team (Late st Contact Info) Description 04/18/2025 Orders Only External Location [address] [place] [address] Provider, External Social History Tobacco Use Types Packs/Day Years Used Date Smoking Tobacco: Never Humiliation, Afraid, Rape, and Kick questionnair e [...] any time in the past 12 m [facility], were you homeless or living in a residential (including now)? No 04/19/2025 [facility] Utilities Answer Date Recorded In the [...] as of this encounter Functional Status * AUDIT-C Score [...] Date of Assessment Author No Risk Indicated 04/21/2025 8:20 PM EST Robyn Pineda RN * Question Answer Date of Assessment Author 1. Wish to be (Past 1 Month) No 025 8:20 PM Robyn Vogel RN 2. Non-Specific Active Suici sangita Thoughts (Past 1 Month) No 04/21/2025 8:20 PM Robyn Vogel, MAGDALENO 6. Suicidal Behavior (Lifetime) No 8:20 PM Robyn Vogel RN documented as of this encounter Plan of Treatment Upcoming Encounters Date Type Department Care Team (Late st Contact Info) Description 06/21/2025 9:30 AM EST Appointment [facility] Radiology [address], [address] [place] [address] 06/21/2025 10:10 AM EST Office Visit [facility] Orthopaedic Surgery & Sports Medicine [address], [address] [place] [address] Wai Motley MD [address] [place] [address] documented as of this encounter Procedures Procedure Name Priority Date/Time Associated Diagnosis Comments CT OUTSIDE IMAGES 04/18/2025 7:36 PM EST documented in this encounter Results * CT OUTSIDE IMAGES (04/18/2025 7:36 PM EST) Anatomical Region Laterality Modality Computed Tomogra phy 04/18/2025 7:36 PM EST us External Provider IMG CT PROCEDURES Edited Resul t - Final documented in this encounter Visit Diagnoses Not on filedocumented in this encounter Additional Health Concerns Assessment Noted Time A Body Mass Index follow-up plan has been documented for the patient 04/26/2025 11:27 AM EST documented as of this encounter Care Teams Photo Checker And Assembler Relationship Specialty Start Date End Date Tho Bodwen MD [address] [place] [address] PCP - General 10/28/20 documented as of this encounter
--- OUTSIDE RECORDS SUMMARY | 2025-05-17 10:22 | XMS_ITS | Encounter Summary ---
Author Organization Healthcare Address [address] [place] [address] Care Team Providers Care Pepper Picker Name Role Phone Tho Bowden MD Primary Care Provider +1- [phone] Reason for Visit * Reason Onset Date Comments HCN Clinical Concern/Question 05/11/2025 Encounter Details Date Type Department Care Team (Late st Contact Info) Description 05/11/2025 Telephone [facility] Orthopaedic Surgery & Sports Medicine [address], [address] [place] [address] Wai Motley MD [address] [place] [address] HCN Clinical Concern/Question Social History Tobacco Use Types Packs/Day Years [...] were you homeless or living in a mcc (including now)? No 04/19/2025 [facility] Utilities Answer Date Recorded In the past 12 months has th e [employer], gas, oil, or water [employer] threatened to shut off services in your home? No 04/19/2025 Comments No Sex and Gender Information Value Date Recorded Sex Assigned at Not on file Legal Sex Female 6:39 PM EDT Gender Identity Not on file Sexual Orientation Not on file documented as of this encounter Miscellaneous Notes * Telephone Encounter - Hawa Quintana RN - 05/12/2025 8:29 AM EST Spoke with pt. She states that her steri strips have all fallen off since yesterday. Pt might have had some residue from xeroform. She will go to local pharmacy and get some to replace them [place] no further questions. * Telephone Encounter - Ольга Trejo - 05/11/2025 3:51 PM EST Clinical Concern/Question Reason for Call: post op patient is requesting a call back angel regarding her steri- strips coming off. She stastes she had sutures removed and replaced with strips today, but they have all now come off Best contact number: [phone] (mobile) Optimal time of day to reach caller: ANYTIME Additional comments/information from caller: None Note: Please do not reply to this message. Follow-up communication and further actions as a result of this message need to be communicated with the patient directly, if the patient is not active onMyChart. If the patient is active on MyChart, they will receive notification of the communication/outcome via [employer]. documented in this encounter Plan of Treatment Upcoming Encounters Date Type Department Care Team (Late st Contact Info) Description 06/21/2025 9:30 AM EST Appointment [facility] Radiology [address], [address] [place] [address] 06/21/2025 10:10 AM EST Office Visit [facility] Orthopaedic Surgery & Sports Medicine [address], [address] [place] [address] Wai Motley MD [address] [place] [address] documented as of this encounter Visit Diagnoses Not on filedocumented in this encounter Additional Health Concerns Assessment Noted Time A fall risk assessment has been complete d for the patient 05/11/2025 11:07 AM EST A Body Mass Index follow-up plan has been documented for the patient 05/11/2025 12:02 PM EST documented as of this encounter Care Teams Pepper Picker Relationship Specialty Start Date End Date Tho Bowden MD [address] [place] [address] PCP - General 10/28/20 documented as of this encounter
--- OUTSIDE RECORDS SUMMARY | 2025-05-17 10:22 | XMS_ITS | Data Portability ---
Author Organization [facility] SELMA Martinez WINNIE CLOSED Address [address] [facility] [address] [place] [address] Assessment No assessment recorded. Plan of Treatment [...] Time 04/16/2022 Audiogram completed GONZALO ASTUDILLO [address] [place], [address], [facility] 04/16/2022 10:34:33 Imaging Results None recorded. [...] ICD10 Code Diagnosis IMO Codes Diagnosis Note [id number] GONZALO ASTUDILLO [place] [facility] CL[facility] [address] N[address],MISTY E LETICIA FERRARI [address] 04/16/2022 09:56:34 04/16/2022 10:55:04 Sensorineural hearing loss of bilateral ears [id number] H90.3 Bilateral tinnitus [id number] H93.13 Health Concerns Section Related Observation LastModified by Organization Detai ls LastModified Time None Recorded Concern Status LastModified by Organization Details LastModified Time None Recorded Advance Directives Directive None Recorded Payers Insurance Date Sequence Insurance Name Policy Number Policy Fitzgerald Covered Member ID Fitzgerald Member ID Guarantor Name 04/16/2022 1 [employer] (MEDICARE REPLACEMENT/A DVANTAGE - PPO) Parul Leone [id number] Parul Leone OBGyn Episode No OBEpisode recorded.
--- OUTSIDE RECORDS SUMMARY | 2025-05-17 10:23 | XMS_ITS | Encounter Summary ---
Author Organization [facility] Address [address] [place] [address] Care Team Providers Care Director Of Front Office Name Role Phone Tho Bowden MD Primary Care Provider [phone] Encounter Details Date Type Department Care Team (Latest Contact Info) Description 04/18/2025 Travel Social History Tobacco Use Types Packs/Day [...] any time in the past [address] [facility], were you homeless or living in a correction (including now)? No 04/19/2025 [facility] Utilities Answer Date Recorded In the past [...] Info) Description 06/21/2025 9:30 AM EST Appointment [facility] Radiology [address], [address] [place] [address] 06/21/2025 10:10 AM EST Office Visit [facility] Orthopaedic Surgery & Sports Medicine [address], [address] [place] [address] Wai Motley MD [address] [place] [address] documented as of this encounter Visit Diagnoses Not on filedocumented in this encounter Additional Health Concerns Assessment Noted Time A Body Mass Index follow-up plan has been documented for the patient 04/26/2025 11:27 AM EST documented as of this encounter Care Teams Director Of Front Office Relationship Specialty Start Date End Date Tho Bowden MD [address] [place] [address] PCP - General 10/28/20 documented as of this encounter
--- OUTSIDE RECORDS SUMMARY | 2025-05-17 10:23 | XMS_ITS | Encounter Summary ---
Author Organization Healthcare Address [address] [place] [address] Care Team Providers Care Shovel Log Loader Operator Name Role Phone Tho Bowden MD Primary Care Provider [phone] Reason for Visit * Reason Onset Date Comments TEST CLAIM 04/19/2025 Encounter Details Date Type Department Care Team ([facility] Contact Info) Description 04/19/2025 Telephone [facility] [address] [place] [phone] Jovanni Lopez, hot oiler None None TEST CLAIM Social History Tobacco Use Types Packs/Day Years [...] time in the past 12 m [facility], were you homeless or living in a retirement (including now)? No 04/19/2025 [facility] Utilities Answer Date Recorded In the [...] encounter Miscellaneous Notes * Telephone Encounter - Jovanni Lopez CPhT - 04/19/2025 9:56 AM EST Inpatient PA Pod Test Claim: Drug Name: ENOXAPARIN 30MG Day Supply: 30 DAYS Estimated Copay: $0 documented in this encounter Plan of Treatment Upcoming Encounters Date Type Department Care Team (Late st Contact Info) Description 06/21/2025 9:30 AM EST Appointment [facility] Radiology [address], 1st [place] [address] 06/21/2025 10:10 AM EST Office Visit [facility] Orthopaedic Surgery & Sports Medicine [address], [address] [place] [address] Wai Motley MD [address] [place] [address] documented as of this encounter Visit Diagnoses Not on filedocumented in this encounter Additional Health Concerns Assessment Noted Time A Body Mass Index follow-up plan has been documented for the patient 04/26/2025 11:27 AM EST documented as of this encounter Care Teams Shovel Log Loader Operator Relationship Specialty Start Date End Date Tho Bowden MD [address] [place] [address] PCP - General 10/28/20 documented as of this encounter
--- OUTSIDE RECORDS SUMMARY | 2025-05-17 10:23 | XMS_ITS | Encounter Summary ---
Author Organization Healthcare Address [address] [place] [address] Care Team Providers Care Licensed Esthetician Name Role Phone Tho Bowden MD Primary Care Provider [phone] Encounter Details Date Type Department Care Team (Latest Contact Info) Description 04/20/2025 Travel Social History Tobacco Use Types Packs/Day [...] any time in the past 12 m [facility], were you homeless or living in a senior care (including now)? No 04/19/[address] [facility] Utilities Answer Date Recorded In the [...] No Risk Indicated 04/20/2025 9:15 AM Devika Godfrey, MAGDALENO * Question Answer Date of Assessment Author 1. Wish to be (Past 1 Month) No 025 9:15 AM Devika Godfrey, MAGDALENO 2. Non-Specific Active Suici sangita Thoughts (Past 1 Month) No 04/20/2025 9:15 AM Devika Godfrey , MAGDALENO 6. Suicidal Behavior (Lifetime) No 9:15 AM Devika Godfrey, RN documented as of this encounter Plan of Treatment Upcoming Encounters Date Type Department Care Team (Late st Contact Info) Description 06/21/2025 9:30 AM EST Appointment [facility]iology [address], [address]st [place] [address] 06/21/2025 10:10 AM EST Office Visit [facility] Orthopaedic Surgery [facility] Medicine [address], [address] [place] [address] Wai Motley MD [address] [place] [address] documented as of this encounter Visit Diagnoses Not on filedocumented in this encounter Additional Health Concerns Assessment Noted Time A Body Mass Index follow-up plan has been documented for the patient 04/26/2025 11:27 AM EST documented as of this encounter Care Teams Licensed Esthetician Relationship Specialty Start Date End Date Tho Bowden MD [address] [place] [address] PCP - General 10/28/20 documented as of this encounter
--- OUTSIDE RECORDS SUMMARY | 2025-05-17 10:23 | XMS_ITS | Encounter Summary ---
Author Organization Healthcare Address [address] [place] [address] Care Team Providers Care Newspaper Editor Name Role Phone Tho Bowden MD Primary Care Provider +1 [phone] Encounter Details Date Type Department Care Team (Latest Contact Info) Description 04/21/2025 Travel Social History Tobacco Use Types Packs/Day [...] any time in the past 12 m [facility], were you homeless or living in a skilled nursing (including now)? No 04/19/2025 [facility] Utilities Answer Date Recorded In the [...] Author No Risk Indicated 04/21/2025 8:20 PM Robyn Vogel, MAGDALENO * Question Answer Date of Assessment Author 1. Wish to be (Past 1 Month) No 025 8:20 PM Robyn Vogel, RN 2. Non-Specific Active Suici sangita Thoughts (Past 1 Month) No 04/21/2025 8:20 PM Robyn Vogel, RN 6. Suicidal Behavior (Lifetime) No 8:20 PM Robyn Vogel, RN documented as of this encounter Plan of Treatment Upcoming Encounters Date Type Department Care Team (Late st Contact Info) Description 06/21/2025 9:30 AM EST Appointment [facility] Radiology [address], [address] [place] [address] 06/21/2025 10:10 AM EST Office Visit [facility] Orthopaedic Surgery & Sports Medicine [address], [address] [place] [address] Wai Motley MD [address] [place] [address] documented as of this encounter Visit Diagnoses Not on filedocumented in this encounter Additional Health Concerns Assessment Noted Time A Body Mass Index follow-up plan has been documented for the patient 04/26/2025 11:27 AM EST documented as of this encounter Care Teams Newspaper Editor Relationship Specialty Start Date End Date Tho Bowden MD [address] [place] [address] PCP - General 10/28/20 documented as of this encounter
--- OUTSIDE RECORDS SUMMARY | 2025-05-17 10:23 | XMS_ITS | Encounter Summary ---
Author Organization Healthcare Address [address] [place] [address] Care Team Providers Care Senior Systems Administrator Name Role Phone Tho Bowden MD Primary Care Provider +1- [phone] Encounter Details Date Type Department Care Team (Late st Contact Info) Description 04/18/2025 Orders Only External Location [address] [place] [address] Provider, External Social History Tobacco Use Types [...] any time in the past 12 m [facility], were you homeless or living in a mcc (including now)? No 04/19/2025 [facility] Utilities Answer Date Recorded In the [...] 6. Suicidal Behavior (Lifetime) No 8:20 PM EST Robyn Pineda RN documented as of this encounter Plan of Treatment Upcoming Encounters Date Type Department Care Team (Late st Contact Info) Description 06/21/2025 9:30 AM EST Appointment [facility] Radiology [address], [address] [place] [address] 06/21/2025 10:10 AM EST Office Visit [facility] Orthopaedic Surgery & Sports Medicine [address], [address] [place] [address] Wai Motley MD [address] [place] [address] documented as of this encounter Procedures Procedure Name Priority Date/Time Associated Diagnosis Comments CT OUTSIDE IMAGES 04/18/2025 7:30 PM EST documented in this encounter Results * CT OUTSIDE IMAGES (04/18/2025 7:30 PM EST) Anatomical Region Laterality Modality Computed Tomogra phy 04/18/2025 7:30 PM EST us External Provider IMG CT PROCEDURES Edited Resul t - Final documented in this encounter Visit Diagnoses Not on filedocumented in this encounter Additional Health Concerns Assessment Noted Time A Body Mass Index follow-up plan has been documented for the patient 04/26/2025 11:27 AM EST documented as of this encounter Care Teams Senior Systems Administrator Relationship Specialty Start Date End Date Tho Bowden MD [address] [place] [address] PCP - General 10/28/20 documented as of this encounter
--- OUTSIDE RECORDS SUMMARY | 2025-05-17 10:23 | XMS_ITS | Encounter Summary ---
Author Organization Healthcare Address [address] [place] [address] Care Team Providers Care Senior Electrical Design Engineer Name Role Phone Tho Bowden MD Primary Care Provider +1 [phone] Encounter Details Date Type Department Care Team (Latest Contact Info) Description 04/19/2025 Travel Social History Tobacco Use Types Packs/Day [...] any time in the past 12 m [facility], were you homeless or living in a [facility] (including now)? No 04/19/2025 [facility] Utilities Answer Date Recorded In [...] Date of Assessment Author No Risk Indicated 04/19/2025 8:00 PM EST Robyn Rubio RN * Question Answer Date of Assessment Author 1. Wish to be (Past 1 Month) No 04/19/2025 8:00 PM Robyn Beck RN 2. Non-Specific Active Suicidal Thoughts (Past 1 Month) No 04/19/2025 8:00 PM Robyn Beck RN 6. Suicidal Behavior (Lifetime) No 04/19/2025 8:00 PM Robyn Beck RN documented as of this encounter Plan of Treatment Upcoming Encounters Date Type Department Care Team (Late st Contact Info) Description 06/21/2025 9:30 AM EST Appointment [facility] Radiology [address], [address] [place] [address] 06/21/2025 10:10 AM EST Office Visit [facility] Orthopaedic Surgery & Sports Medicine [address], [address] [place] [address] Wai Motley MD [address] [place] [address] documented as of this encounter Visit Diagnoses Not on filedocumented in this encounter Additional Health Concerns Assessment Noted Time A Body Mass Index follow-up plan has been documented for the patient 04/26/2025 11:27 AM EST documented as of this encounter Care Teams Senior Electrical Design Engineer Relationship Specialty Start Date End Date Tho Bowden MD [address] [place], [place] [id number] PCP - General 10/28/20 documented as of this encounter
--- OUTSIDE RECORDS SUMMARY | 2025-05-17 10:24 | XMS_ITS | Clinical Summary ---
Author Organization [facility] Address [address] [place] [address] Care Team Providers Care Kitchen Designer Name Role Phone Tho Bowden MD Primary Care Provider Allergies Active Allergy Reactions Criticality Noted Date Comments Lactose Intolerance (Gi) Diarrhea,Vomiting Low 11/0 09/2024 Milk (Cow) Nausea Low 07/22/2024 Medications alendronate (Fosamax) 70 MG tablet Take 1 tablet by mouth every 7 days. Take in the morning with a full glass of water, on an empty stomach, and do not take anything else by mouth or lie down for the next 30 min. Active atorvastatin (Lipitor) 80 MG tablet Take 1 tablet by mouth daily. Active baclofen (Lioresal) 10 MG tablet Take 1 tablet by mouth 3 times a day. Active cariprazine (Vraylar) 1.5 MG capsule Take 1 capsule by mouth daily. Active clopidogrel (Plavix) 75 MG tablet Take 1 tablet by mouth daily. Active colestipol (Colestid) 1 g tablet Take 1 tablet by mouth daily. Take at least 1 hour after or 4 hours before other medications. Active dicyclomine (Bentyl) 20 MG tablet Take 1 tablet by mouth 2 times a day. Active fluticasone (Flonase) 50 MCG/ACT nasal spray Administer 1 spray into each nostril daily. Shake gently. Before first use, prime pump. After use, clean tip and replace cap. Active fluticasone-salmet misa (Advair Diskus) 500-50 MCG/ACT diskus inhaler Inhale 1 puff 2 times a day. Rinse mouth with water after use to reduce aftertaste and incidence of candidiasis. Do not swallow. Active furosemide (Lasix) 80 MG tablet Take 1 tablet by mouth daily. Active galcanezumab-gnlm (Emgality) 120 MG/ML injection Inject 1 Syringe under the skin every 30 days. Active HYDROcodone-acetam inophen (Langdon) 5-325 MG tablet Take 1 tablet by mouth 2 times a day as needed. Active hydrOXYzine pamoate (Vistaril) 25 MG capsule Take 1 capsule by mouth 3 times a day. Active metFORMIN (Glucophage) 1000 MG tablet Take 1 tablet by mouth 2 times a day with meals. Active montelukast (Singulair) 10 MG tablet Take 1 tablet by mouth nightly. Active omeprazole (PriLOSEC) [address] capsule Take 1 capsule by mouth daily. Do not crush or chew. Active oxybutynin XL (Ditropan-XL) 10 MG 24 hr tablet Take 1 tablet by mouth daily. Do not crush, chew, or split. Active potassium chloride CR (Klor-Con M20) 20 MEQ ER tablet Take 1 tablet by mouth daily. Do not crush or chew. Active QUEtiapine (SEROquel) 50 MG tablet Take 1 tablet by mouth nightly. Active ranolazine (Ranexa) 500 MG 12 hr tablet Take 1 tablet by mouth 2 times a day. Do not crush, chew, or split. Active rOPINIRole (Requip) 2 MG tablet Take 1 tablet by mouth nightly. Active Rimegepant Sulfate (Nurtec) 75 MG orally disintegrating tablet Dissolve 1 tablet on the tongue as needed. Active topiramate 50 MG tablet Take 1 tablet by mouth nightly. Active semaglutide (Ozempic, 2 MG/DOSE,) 8 MG/3ML solution pen-injector Inject 2 mg under the skin every 7 days. Active FLUoxetine (PROzac) 40 MG capsule Take 1 capsule by mouth 2 times a day. Active metoprolol succinate XL (Toprol-XL) 25 MG 24 hr tablet Take 0.5 tablets by mouth daily. Do not crush or chew. 15 tablet 04/27/20 25 Active traZODone (Desyrel) 50 MG tablet Take 1 tablet by mouth nightly. 30 tablet 11/10/20 25 Active venlafaxine XR (Effexor-XR) 75 MG 24 hr capsule Take 1 capsule by mouth daily. Do not crush or chew. 30 capsule 04/27/20 Active acetaminophen (Tylenol) 500 MG tablet Take 2 tablets by mouth every 6 hours. 240 tablet 04/26/20 25 Active folic acid (Folvite) 1 MG tablet Take 1 tablet by mouth daily. 30 tablet 04/27/20 25 Active multivitamin (Trinatal Rx 1) 60-1 MG tablet tablet Take 1 tablet by mouth daily. 30 tablet 04/26/20 25 Active polyethylene glycol (Miralax) 17 g packet Take 17 g by mouth 2 times a day. 10 each 04/26/20 25 Active senna-docusate (Anna-Colace) 8.6-50 MG tablet Take 1 tablet by mouth 2 times a day. 10 tablet 04/26/20 25 Active famotidine (Pepcid) 20 MG tablet Take 1 tablet by mouth 2 times a day. 60 tablet 04/26/20 25 Active naloxone (Narcan) 4 mg/0.1 mL nasal spray 1. Give 1 spray in nostril for no/slow breathing or cannot wake after opioid use 2. Call 911 3. Repeat in other nostril if symptoms continue 1 each 04/26/20 Active famotidine (Pepcid) 40 MG tablet Take 1 tablet by mouth daily. Discontinu ed(Stop Taking at Discharge) metoprolol succinate XL (Toprol-XL) 25 MG 24 hr tablet Take 0.5 tablets by mouth daily. Do not crush or chew. Discontinu ed(Stop Taking at Discharge) rOPINIRole (Requip) 1 MG tablet Take 1 tablet by mouth nightly. Discontinu ed(Entered in Error) semaglutide 1 MG/DOSE (Ozempic, 1 MG/DOSE,) 2 MG/1.5ML solution pen-injector inj. pen Inject 2 mg under the skin 1 time per week. Discontinu ed(Entered in Error) venlafaxine XR (Effexor-XR) 37.5 MG 24 hr capsule Take 2 capsules by mouth daily. Do not crush or chew. Discontinu ed(Stop Taking at Discharge) traZODone (Desyrel) 150 MG tablet Take 1 tablet by mouth nightly. 025 Discontinu ed(Stop Taking at Discharge) enoxaparin (Lovenox) 30 MG/0.3ML solution prefilled syringe Inject 0.3 mL under the skin 2 times a day for 40 doses. 12 mL 04/26/20 025 oxyCODONE (Roxicodone) 5 MG immediate release tablet Take 1 tablet by mouth every 6 hours as needed for severe pain for up to 3 days. 10 tablet 04/26/20 025 Active Problems Problem Noted Date Diagnosed Date Acute blood loss anemia (ABLA) 04/24/2025 Assessment & Plan (04/26/2025 10:51 AM EST): -Continue to monitor -Transfuse for hgb < 7 -Add vitamin daily -04/25: HGB: 6.8 --> 1 unit PRBCs. Assessment & Plan (04/25/2025 1:35 PM EST): -Continue to monitor -Transfuse for hgb < 7 -Add vitamin daily -04/25: HGB: 6.8 --> 1 unit PRBCs. Assessment & Plan (04/24/2025 12:59 PM EST): -Continue to monitor -Transfuse for hgb < 7 -Add vitamin daily Hypomagnesemia 04/23/2025 Assessment & Plan (04/26/2025 10:51 AM EST): -Continue to monitor -Replete as needed Assessment & Plan (04/25/2025 1:35 PM EST): -Continue to monitor -Replete as needed Assessment & Plan (04/24/2025 12:59 PM EST): -Continue to monitor -Replete as needed Assessment & Plan (04/23/2025 4:02 PM EST): -Continue to monitor -Replete as needed Mood disorder 04/22/2025 Assessment & Plan (04/26/2025 10:51 AM EST): Known history continue home Seroquel @ 75 mg nightly Assessment & Plan (04/25/2025 1:35 PM EST): Known history continue home Seroquel @ 75 mg nightly Assessment & Plan (04/24/2025 12:59 PM EST): Known history continue home Seroquel @ 75 mg nightly Assessment & Plan (04/23/2025 4:02 PM EST): Known history 04/23: re-start home Seroquel @ 75 mg nightly Assessment & Plan (04/22/2025 1:00 PM EST): Known history Resume home medications as able Closed fracture of left femur 04/19/2025 Assessment & Plan (04/26/2025 10:51 AM EST): L periprosthetic femur fx thru distal diaphysis 04/21: ORIF periprosthetic DF fx Assessment & Plan (04/25/2025 1:35 PM EST): L periprosthetic femur fx thru distal diaphysis 04/21: ORIF periprosthetic DF fx Assessment & Plan (04/24/2025 12:59 PM EST): L periprosthetic femur fx thru distal diaphysis 04/21: ORIF periprosthetic DF fx Assessment & Plan (04/23/2025 4:02 PM EST): L periprosthetic femur fx thru distal diaphysis 5: ORIF periprosthetic DF fx Assessment & Plan (04/22/2025 1:00 PM EST): L periprosthetic femur fx thru distal diaphysis 04/21: ORIF periprosthetic DF fx Assessment & Plan (04/21/2025 5:46 PM EST): L periprosthetic femur fx thru distal diaphysis Ortho following, OR tentative 04/21 Assessment & Plan (04/20/2025 3:54 PM EST): L periprosthetic femur fx thru distal diaphysis Ortho following, OR tentative 04/20 Assessment & Plan (04/19/2025 4:32 AM EST): L periprosthetic femur fx thru distal diaphysis Ortho following Fall at home, initial encounter 04/19/2025 Assessment & Plan (04/26/2025 10:51 AM EST): Admit to SGT5 Assessment & Plan (04/25/2025 1:35 PM EST): Admit to SGT5 Assessment & Plan (04/24/2025 12:59 PM EST): Admit to SGT5 Assessment & Plan (04/23/2025 4:02 PM EST): Admit to SGT5 Assessment & Plan (04/22/2025 1:00 PM EST): Admit to SGT5 Assessment & Plan (04/21/2025 5:46 PM EST): Admit to SGT5 Assessment & Plan (04/20/2025 3:54 PM EST): Admit to SGT5 Assessment & Plan (04/19/2025 8:32 AM EST): Admit to SGT5 Acute encephalopathy 04/19/2025 Assessment & Plan (04/26/2025 10:51 AM EST): Medicine and neurology consulted Echo with bubble study negative on 04/21 Neurology state low concern for stroke, no further testing recommended Attempt to resume home medications as able and appropriate Assessment & Plan (04/25/2025 1:35 PM EST): Medicine and neurology consulted Echo with bubble study negative on 04/21 Neurology state low concern for stroke, no further testing recommended Attempt to resume home medications as able and appropriate Assessment & Plan (04/24/2025 12:59 PM EST): Medicine and neurology consulted Echo with bubble study negative on 04/21 Neurology state low concern for stroke, no further testing recommended Attempt to resume home medications as able and appropriate Assessment & Plan (04/23/2025 4:02 PM EST): Medicine and neurology consulted Echo with bubble study negative on 04/21 Neurology state low concern for stroke, no further testing recommended Attempt to resume home medications as able and appropriate Assessment & Plan (04/22/2025 1:00 PM EST): Medicine and neurology consulted Echo with bubble study negative on 04/21 Neurology state low concern for stroke, no further testing recommended Attempt to resume home medications as able and appropriate Assessment & Plan (04/21/2025 5:46 PM EST): Medicine and neurology consulted Echo with bubble study negative on 04/21 Neurology state low concern for stroke, no further testing recommended Attempt to resume home medications as able and appropriate Assessment & Plan (04/20/2025 3:54 PM EST): Medicine and Neurology consulted, MRI Head pending MED recs: Hold topiramate, Seroquel, Vraylar, Trazodone. Resume home dose Effexor, resume at least half home dose baclofen, limit Atarax to no more than 25mg q8 FAMILIA (generalized anxiety disorder) 04/19/2025 Assessment & Plan (04/26/2025 10:51 AM EST): Resume home meds as appropriate; Effexor and Trazodone Assessment & Plan (04/25/2025 1:35 PM EST): Resume home meds as appropriate; Effexor and Trazodone Assessment & Plan (04/24/2025 12:59 PM EST): Resume home meds as appropriate; Effexor and Trazodone Assessment & Plan (04/23/2025 4:02 PM EST): Resume home meds as appropriate; Effexor Hold Trazodone Assessment & Plan (04/22/2025 1:00 PM EST): Resume home meds as appropriate; Effexor Hold Trazodone Assessment & Plan (04/21/2025 5:46 PM EST): Resume home meds as appropriate; Effexor Hold Trazodone Assessment & Plan (04/20/2025 3:54 PM EST): Resume home meds as appropriate; Effexor Hold Trazodone Migraines 04/19/2025 Assessment & Plan (04/26/2025 10:51 AM EST): Topiramate initially held per medicine, resumed on 04/21 with improved mental status Assessment & Plan (04/25/2025 1:35 PM EST): Topiramate initially held per medicine, resumed on 04/21 with improved mental status Assessment & Plan (04/24/2025 12:59 PM EST): Topiramate initially held per medicine, resumed on 04/21 with improved mental status Assessment & Plan (04/23/2025 4:02 PM EST): Topiramate initially held per medicine, resumed on 04/21 with improved mental status Assessment & Plan (04/22/2025 1:00 PM EST): Topiramate initially held per medicine, resumed on 04/21 with improved mental status Assessment & Plan (04/21/2025 5:46 PM EST): Topiramate initially held per medicine, resumed on 04/21 with improved of mental status Assessment & Plan (04/20/2025 3:54 PM EST): Hold Topiramate per Medicine CAD (coronary artery disease) 04/19/2025 Assessment & Plan (04/26/2025 10:51 AM EST): Resume home meds as appropriate; Lipitor Hold Plavix Assessment & Plan (04/25/2025 1:35 PM EST): Resume home meds as appropriate; Lipitor Hold Plavix Assessment & Plan (04/24/2025 12:59 PM EST): Resume home meds as appropriate; Lipitor Hold Plavix Assessment & Plan (04/23/2025 4:02 PM EST): Resume home meds as appropriate; Lipitor Hold Plavix Assessment & Plan (04/22/2025 1:00 PM EST): Resume home meds as appropriate; Lipitor Hold Plavix Assessment & Plan (04/21/2025 5:46 PM EST): Resume home meds as appropriate; Lipitor Hold Plavix Assessment & Plan (04/20/2025 3:54 PM EST): Resume home meds as appropriate; Lipitor Hold Plavix pending Neuro eval. Heart failure 04/19/2025 Assessment & Plan (04/26/2025 10:51 AM EST): 04/21: ECHO: EF 64%. Normal diastolic function. Resume home meds as appropriate: Metoprolol, Lasix Assessment & Plan (04/25/2025 1:35 PM EST): 04/21: ECHO: EF 64%. Normal diastolic function. Resume home meds as appropriate: Metoprolol, Lasix Assessment & Plan (04/24/2025 12:59 PM EST): 04/21: ECHO: EF 64%. Normal diastolic function. Resume home meds as appropriate: Metoprolol, Lasix Assessment & Plan (04/23/2025 4:02 PM EST): ECHO ordered Resume home meds as appropriate: Metoprolol, Lasix Assessment & Plan (04/22/2025 1:00 PM EST): ECHO ordered Resume home meds as appropriate: Metoprolol, Lasix Assessment & Plan (04/21/2025 5:46 PM EST): ECHO ordered Resume home meds as appropriate: Metoprolol, Lasix Assessment & Plan (04/20/2025 3:54 PM EST): ECHO ordered Resume home meds as appropriate: Metoprolol, Lasix COPD (chronic obstructive pulmonary disease) 08/2024 Assessment & Plan (04/26/2025 10:51 AM EST): Resume home meds as appropriate PEP/PAP Pulmonary toileting Assessment & Plan (04/25/2025 1:35 PM EST): Resume home meds as appropriate PEP/PAP Pulmonary toileting Assessment & Plan (04/24/2025 12:59 PM EST): Resume home meds as appropriate PEP/PAP Pulmonary toileting Assessment & Plan (04/23/2025 4:02 PM EST): Resume home meds as appropriate PEP/PAP Pulmonary toileting Assessment & Plan (04/22/2025 1:00 PM EST): Resume home meds as appropriate PEP/PAP Pulmonary toileting Assessment & Plan (04/21/2025 5:46 PM EST): Resume home meds as appropriate PEP/PAP Pulmonary toileting Assessment & Plan (04/20/2025 3:54 PM EST): Resume home meds as appropriate PEP/PAP Pulmonary toileting HTN (hypertension) 04/19/2025 Assessment & Plan (04/26/2025 10:51 AM EST): Resume home meds as appropriate Assessment & Plan (04/25/2025 1:35 PM EST): Resume home meds as appropriate Assessment & Plan (04/24/2025 12:59 PM EST): Resume home meds as appropriate Assessment & Plan (04/23/2025 4:02 PM EST): Resume home meds as appropriate Assessment & Plan (04/22/2025 1:00 PM EST): Resume home meds as appropriate Assessment & Plan (04/21/2025 5:46 PM EST): Resume home meds as appropriate Assessment & Plan (04/20/2025 3:54 PM EST): Resume home meds as appropriate GERD (gastroesophageal reflux disease) Assessment & Plan (04/26/2025 10:51 AM EST): Resume home meds as appropriate: Famotidine Hold off on PPI given osteoporosis/fragility fx Assessment & Plan (04/25/2025 1:35 PM EST): Resume home meds as appropriate: Famotidine Hold off on PPI given osteoporosis/fragility fx Assessment & Plan (04/24/2025 12:59 PM EST): Resume home meds as appropriate: Famotidine Hold off on PPI given osteoporosis/fragility fx Assessment & Plan (04/23/2025 4:02 PM EST): Resume home meds as appropriate: Famotidine Hold off on PPI given osteoporosis/fragility fx Assessment & Plan (04/22/2025 1:00 PM EST): Resume home meds as appropriate: Famotidine Hold off on PPI given osteoporosis/fragility fx Assessment & Plan (04/21/2025 5:46 PM EST): Resume home meds as appropriate: Famotidine Hold off on PPI given osteoporosis/fragility fx Assessment & Plan (04/20/2025 3:54 PM EST): Resume home meds as appropriate: Famotidine Hold off on PPI given osteoporosis/fragility fx Age-related osteoporosis with current pathologic al fracture 04/19/2025 Assessment & Plan (04/26/2025 10:51 AM EST): Fragility consulted; recs pending Reportedly on Alendronate, restart as able Assessment & Plan (04/25/2025 1:35 PM EST): Fragility consulted; recs pending Reportedly on Alendronate, restart as able Assessment & Plan (04/24/2025 12:59 PM EST): Fragility consulted; recs pending Reportedly on Alendronate, restart as able Assessment & Plan (04/23/2025 4:02 PM EST): Fragility consulted; recs pending Reportedly on Alendronate, restart as able Assessment & Plan (04/22/2025 1:00 PM EST): Fragility consulted; recs pending Reportedly on Alendronate, restart as able Assessment & Plan (04/21/2025 5:46 PM EST): Fragility consulted; recs pending Reportedly on Alendronate, restart as able Assessment & Plan (04/20/2025 3:54 PM EST): Fragility consulted; recs pending Reportedly on Alendronate, restart as able Chronic back pain 04/19/2025 Assessment & Plan (04/26/2025 10:51 AM EST): Resume home Baclofen Hold home Langdon in light of acute fx and additional in-patient narcotics Assessment & Plan (04/25/2025 1:35 PM EST): Resume home Baclofen Hold home Langdon in light of acute fx and additional in-patient narcotics Assessment & Plan (04/24/2025 12:59 PM EST): Resume home Baclofen Hold home Langdon in light of acute fx and additional in-patient narcotics Assessment & Plan (04/23/2025 4:02 PM EST): Resume home Baclofen Hold home Langdon in light of acute fx and additional in-patient narcotics Assessment & Plan (04/22/2025 1:00 PM EST): Resume home Baclofen Hold home Langdon in light of acute fx and additional in-patient narcotics Assessment & Plan (04/21/2025 5:46 PM EST): Resume home Baclofen Hold home Langdon in light of acute fx and additional in-patient narcotics Assessment & Plan (04/20/2025 3:54 PM EST): Resume home Baclofen Hold home Langdon in light of acute fx and additional in-patient narcotics IBS (irritable bowel syndrome) 04/19/2025 Assessment & Plan (04/26/2025 10:51 AM EST): Resuming home medications as able Bowel regimen as appropriate Assessment & Plan (04/25/2025 1:35 PM EST): Resuming home medications as able Bowel regimen as appropriate Assessment & Plan (04/24/2025 12:59 PM EST): Resuming home medications as able Bowel regimen as appropriate Assessment & Plan (04/23/2025 4:02 PM EST): Resuming home medications as able Bowel regimen as appropriate Assessment & Plan (04/22/2025 1:00 PM EST): Resuming home medications as able Bowel regimen as appropriate Assessment & Plan (04/21/2025 5:46 PM EST): Hold dicyclomine/colestipol Bowel regimen as appropriate Assessment & Plan (04/20/2025 3:54 PM EST): Hold dicyclomine/colestipol Bowel regimen as appropriate Urge incontinence 04/19/2025 Assessment & Plan (04/26/2025 10:51 AM EST): In the setting of concern for polypharmacy, hold oxybutynin Assessment & Plan (04/25/2025 1:35 PM EST): In the setting of concern for polypharmacy, hold oxybutynin Assessment & Plan (04/24/2025 12:59 PM EST): In the setting of concern for polypharmacy, hold oxybutynin Assessment & Plan (04/23/2025 4:02 PM EST): In the setting of concern for polypharmacy, hold oxybutynin Assessment & Plan (04/22/2025 1:00 PM EST): In the setting of concern for polypharmacy, hold oxybutynin Assessment & Plan (04/21/2025 5:46 PM EST): In the setting of concern for polypharmacy, hold oxybutynin Assessment & Plan (04/20/2025 3:54 PM EST): In the setting of concern for polypharmacy, hold oxybutynin T2DM (type 2 diabetes mellitus) 04/19/2025 Assessment & Plan (04/26/2025 10:51 AM EST): Take Metformin at home, unclear diagnosis A1c 5.3, SSI, CC2 in-patient Assessment & Plan (04/25/2025 1:35 PM EST): Take Metformin at home, unclear diagnosis A1c 5.3, SSI, CC2 in-patient Assessment & Plan (04/24/2025 12:59 PM EST): Take Metformin at home, unclear diagnosis A1c 5.3, SSI, CC2 in-patient Assessment & Plan (04/23/2025 4:02 PM EST): Take Metformin at home, unclear diagnosis A1c 5.3, SSI, CC2 in-patient Assessment & Plan (04/22/2025 1:00 PM EST): Take Metformin at home, unclear diagnosis A1c 5.3, SSI, CC2 in-patient Assessment & Plan (04/21/2025 5:46 PM EST): Take Metformin at home, unclear diagnosis A1c 5.3, SSI, CC2 in-patient Assessment & Plan (04/20/2025 3:54 PM EST): Take Metformin at home, unclear diagnosis A1c 5.3, SSI, CC2 in-patient Resolved Problems Problem Noted Date Diagnosed Date Resolved Date Hyperkalemia 04/20/2025 04/22/2025 Fall, initial encounter 04/20/202510/2024 Altered mental status 04/19/20252024 Anna-prosthetic femur fractu re at tip of prosthesis, initial encounter 04/18/2025 04/21/2025 Encounters Date Type Department Care Team Description 05/11/2025 11:50 AM EST Office Visit [facility] [address] [place] [address] Robina James, FACILITY EXAMINER Closed fracture of distal end of left femur with routine healing, unspecified fracture morphology, subsequent encounter (Primary Dx) 05/11/2025 Telephone [facility] [address] [place] [id number] Wai Motley MD HCN Clinical Concern/Question 05/11/2025 Travel 04/21/2025 2:38 PM EST Anesthesia Event [facility] [address] [place] [id number] Yasir Juarez MD Rock, Holly R, PA 04/21/2025 2:10 PM EST - 04/21/2025 6:20 PM EST Surgery [facility] [address] [place] [id number] Wai Motley MD ORIF, FRACTURE, FEMUR, DISTAL [[id number] (CPT )] 04/21/2025 Travel 04/20/2025 11:59 PM EST Anesthesia Event [facility] [address] [place] [address] Olimpia Wan PA Dauer, Douglas M, MD 04/20/2025 Travel 04/19/2025 Telephone [facility] [address] [place] [address] Jovanni Lopez, sheet metal duct installer helper TEST CLAIM 04/19/2025 Travel 04/18/2025 10:23 PM EST - 04/26/2025 1:14 PM EST Hospital Encounter [facility] [address] [place] [id number] Jarett Anderson DO Detelich, Danielle M, MD Rodriguez, MD Abram Ordonez Helen S, MD Bernard, Andrew C, MD Griffen, Margaret M, MD Wheelock, Brittany N, MD Altered mental status, unspecified altered mental status type (Primary Dx); 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, initial encounter; Fall, initial encounter; Polypharmacy Discharge Disposition: Home-Health Care c 04/18/2025 Travel 04/18/2025 Orders Only External Location [address] [place] [id number] Provider, External 04/18/2025 Orders Only External Location [address] [place] [address] Provider, External 04/18/2025 Orders Only External Location [address] [place] [id number] Provider, External 04/18/2025 Orders Only External Location [address] [place] [id number] Provider, External 04/18/2025 Orders Only External Location [address] [place] [address] Provider, External 04/18/2025 Orders Only External Location [address] [place] [address] Provider, External 04/18/2025 Orders Only External Location [address] [place] [address] Provider, External from Last 3 Months Family History Medical History Relation Name Comments Conversions - Other Father FH: charla racts Conversions - Other Maternal Grandmother FH: cataracts Bone cancer Other 1 Bone cancer Other 2 Alcohol abuse Other 3 Conversions - Other Other 4 cardiova scular disease Conversions - Other Other 5 cardiova scular disease Diabetes Other 6 Emphysema Other 7 Hyperlipidemia Other 8 Hypertension Other 9 Conversions - Other Other 10 FH: charla racts Conversions - Other Other 11 FH: charla racts Conversions - Other Other 12 Lymph no de cancer Relation Name Status Comments Father Maternal Grandmother Other 1 Other 2 Other 3 Other 4 Other 5 Other 6 Other 7 Other 8 Other 9 Other 10 Other 11 Other 12 Social History Tobacco Use Types Packs/Day Years [...] any time in the past 12 m [facility], were you homeless or living in a long-term (including now)? No 04/19/2025 [facility] Utilities Answer Date Recorded In the past 12 months has th e electric, gas, oil, or water company threatened to shut off services in your home? No 04/19/2025 Comments No Sex and Gender Information Value Date Recorded Sex Assigned at Not on file Legal Sex Female 6:39 PM EDT Gender Identity Not on file Sexual Orientation Not on file Last Filed Vital Signs Vital Sign Reading Time Taken Comments Blood Pressure 106/73 05/11/2025 11:05 AM EST Pulse 93 05/11/2025 11:05 AM EST Temperature 36.8 C (98.3 F) 05/11/2025 11:05 AM EST Respiratory Rate 16 04/26/2025 9:03 AM EST Oxygen Saturation 95% 05/11/2025 11: 05 AM EST Inhaled Oxygen Concentration - - Weight 63.4 kg (139 lb 12.4 oz) 04/26/2025 3:24 AM EST Height 160 cm (5' 3 ) 04/21/2025 1:47 PM EST Body Mass Index 24.76 04/21/2025 1:47 PM EST Plan of Treatment Upcoming Encounters Date Type Department Care Team (Late st Contact Info) Description 06/21/2025 9:30 AM EST Appointment [facility] [address] [place] [address] 06/21/2025 10:10 AM EST Office Visit [facility] [address] [place] [address] Wai Motley MD [address] [place] [address] Health Maintenance Due Date Last Done Comments [facility]-Bone Density Scan 1961 [facility]-Depression Screening 1961 [facility]-Medicare Annual Wellness (AWV) 1961 [facility]-Infant/Child/Adol SDOH Screenings 1961 Diabetes: Dental Exam 12/03/1971 CT Colonography 2006 Colonoscopy 2006 FIT-DNA 2006 FIT 2006 FOBT 2006 Sigmoidoscopy 2006 [facility]-Colorectal Cancer Screening 2006 [facility]-Breast Cancer Screening 04/08/2017 04/08/2015 [facility]-Zoster Vaccines (2 of 2) 05/20/2020 03/25/2020 [facility]- SDOH Screenings 10/17/2025 [facility]-Adult SDOH Screenings 10/17/2025 04/19/2025 [facility]-Diabetes: Hemoglobin A1C 10/17/2025 04/19/2025 [facility]-DTaP,Tdap,and Td Vaccines (3 - Td or Tdap) 04/08/2034 04/08/2024, 03/01/2014 [facility]-Pneumococcal Vaccine: 50+ Years Completed 04/05/2023, 03/20/2017 [facility]-RSV Vaccine: 60+ Years or Completed 04/08/2024 [facility]-HIV Screening Completed 04/19/2025 [facility]-Hepatitis C Screening Completed 04/19/2025 [id number] Vaccine Completed 05/06/2025, 04/08/2024, 06/21/2023, Additional history exists [facility]-Influenza Vaccine Completed 05/06/2025 , 04/01/2024, 06/21/2023, Additional history exists HPV Vaccines Aged Out No longer eligi ble based on patient's age to complete this topic [facility]-HIB Vaccines Aged Out No longer e ligible based on patient's age to complete this topic [facility]-Hepatitis A Vaccines Aged Out No longer eligible based on patient's age to complete this topic [facility]-IPV Vaccines Aged Out No longer e ligible based on patient's age to complete this topic [facility]-Rotavirus Vaccines Aged Out No lo nger eligible based on patient's age to complete this topic Medical Devices Implanted Type Area Glass Forming Engineer Device Identifier Shelf Expiration Date Model / Serial / Lot K-Wire [id number] Drill Tip [employer] - [id number] Implanted:Qty: 4 on 04/21/2025 by Wai Motley MD at [facility] Left: Femur [employer]-[id number] / / Screw 4.5x64mm Cocr Locking [employer] - [id number] Implanted:Qty: 1 on 04/21/2025 by Wai Motley MD at [facility] Left: Femur [employer]-[id number] 04/21/2026 [id number] / / K-Wire [id number] Drill Tip [employer] - [id number] Implanted:Qty: 1 on 04/21/2025 by Wai Motley MD at [facility] Left: Femur [employer]-[id number] / / Plate Lateral Narrow Distal Femur Lt 11h [employer]us - [id number] Implanted:Qty: 1 on 04/21/2025 by Wai Motley MD at [facility] Left: Femur [employer]-[id number] / / Screw 5.5x70mm Fully Threaded Ss - [id number] Implanted:Qty: 1 on 04/21/2025 by Wai Motley MD at [facility] Left: Femur [employer]-[id number] / / Screw 4.5x60mm Cocr Locking - [id number] Implanted:Qty: 1 on 04/21/2025 by Wai Motley MD at [facility] Left: Femur [employer]-[id number] / / Screw 4.5x70mm Cocr Locking - [id number] Implanted:Qty: 3 on 04/21/2025 by Wai Motley MD at [facility] Left: Femur [employer]-[id number] / / Screw 4.5x75mm Cocr Locking [employer] - [id number] Implanted:Qty: 1 on 04/21/2025 by Wai Motley MD at [facility] Left: Femur [employer]-[id number] / / Screw 4.5x34mm Ss Non-Locking [employer] - [id number] Implanted:Qty: 2 on 04/21/2025 by Wai Motley MD at [facility] Left: Femur [employer]-[id number] / / Screw 4.5x36mm Ss Non-Locking [employer] - [id number] Implanted:Qty: 2 on 04/21/2025 by Wai Motley MD at [facility] Left: Femur [employer]-[id number] / / Procedures Procedure Name Priority Date/Time Associated Diagnosis [...] HEMATOCRIT, BLOOD Routine 04/25/2025 5:35 AM EST BASIC METABOLIC PANEL, PLASMA Routine 04/24/2025 5:20 AM EST MAGNESIUM, PLASMA Routine 04/24/2025 5:2 0 AM EST HEMOGLOBIN AND HEMATOCRIT, BLOOD Routine 04/24/2025 5:20 AM EST PHOSPHORUS, PLASMA Routine 04/22/2025 3: 25 AM EST MAGNESIUM, PLASMA Routine 04/22/2025 3:2 5 AM EST BASIC METABOLIC PANEL, PLASMA Routine 04/22/2025 3:25 AM EST CBC W/O DIFFERENTIAL Routine 04/22/2025 3:25 AM EST XR KNEE LEFT 3 VIEWS Routine 04/21/2025 6:08 PM EST XR FEMUR LEFT 2+ VIEWS Routine 6:08 PM EST FL LESS THAN 1 HOUR (NON-REPORTABLE) Routine 04/21/2025 5:10 PM EST ANESTHESIA PERIPHERAL IV PLACEMENT Routine 04/21/2025 2:55 PM EST PB ANESTHESIA PLACEHOLDER Routine 04/21/2025 2:[address] AN ELECTIVE ENDOTRACHEAL AIRWAY Routine 04/21/2025 2:[address] OPEN TX FEMORAL FRACTURE DISTAL MED/LAT CONDYLE [...] / INR STAT 04/20/2025 1:48 AM EST BASIC METABOLIC PANEL, PLASMA STAT 04/20/2025 1:48 AM EST CBC W/O DIFFERENTIAL STAT 04/20/2025 1:48 AM EST PROTEIN ELECTROPHORESIS, PATHOLOGIST INTERPRETATION Routine 04/19/2025 2:38 PM EST LDL CHOLESTEROL DIRECT Add-On 2:38 PM EST VITAMIN B12, SERUM Routine 04/19/2025 2: 38 PM EST HEMOGLOBIN A1C Routine 04/19/2025 2:38 PM EST TOTAL PROTEIN, SERUM Routine 04/19/2025 2:38 PM EST PROTEIN ELECTROPHORESIS, SERUM Routine 04/19/2025 2:38 PM EST IONIZED CALCIUM, SERUM Routine 2:38 PM EST PTH INTACT TOTAL Routine 04/19/2025 2:38 PM EST MAGNESIUM, PLASMA Routine 04/19/2025 2:3 8 PM EST PHOSPHORUS, PLASMA Routine 04/19/2025 2: 38 PM EST COMPREHENSIVE METABOLIC PANEL, PLASMA Routine 04/19/2025 2:38 PM EST BONE SPECIFIC ALKALINE PHOSPHATASE Routine 04/19/2025 2:38 PM EST PROTEIN ELECTROPHORESIS, SERUM Routine 04/19/2025 2:38 PM EST PTH PANEL 1 Routine 04/19/2025 2:38 PM EST VITAMIN D 25 HYDROXY Routine 04/19/2025 2:38 PM EST PREPARE RBC Routine 04/19/2025 11:42 AM EST TROPONIN T, HIGH SENSITIVITY, 2 HOUR, PLASMA Timed 04/19/2025 4:[address] FEMUR LEFT WO IV CONTRAST STAT 04/19/2025 3:23 AM EST TYPE AND SCREEN STAT 04/19/2025 2:53 AM EST OPIATES, LCMSMS, URINE STAT 2:47 AM EST URINALYSIS WITH REFLEX MICROSCOPIC STAT 04/19/2025 2:47 AM EST DRUG ABUSE SCREEN, URINE STAT 04/19/2025 2:47 AM EST PROTHROMBIN TIME(PT) / INR STAT 04/19/2025 1:41 AM EST ANTI XA LEVEL UNFRACTIONATED HEPARIN STAT 04/19/2025 1:41 AM EST TROPONIN T, HIGH SENSITIVITY, 0 HOUR, PLASMA, REFLEX TO 2 HOUR STAT 04/19/2025 1:41 AM EST ECG ADULT STAT 04/19/2025 1:[address] HEAD WO IV CONTRAST STAT 1:[address] KNEE LEFT WO IV CONTRAST STAT 04/19/2025 1:25 AM EST SALICYLATE, QUANTITATIVE, PLASMA STAT Add-on 04/19/2025 12:51 AM EST ACETAMINOPHEN, QUANTATATIVE, PLASMA STAT Add-on 04/19/2025 12:51 AM EST FREE T4, PLASMA STAT Add-on 04/19/2025 12:51 AM EST TSH STAT Add-on 04/19/2025 12:51 AM EST ED HIV 1/2 ANTIBODY/ANTIGEN SCREEN WITH REFLEX TO HIV I/II DIFFERENTIATION STAT 04/19/2025 12:51 AM EST ED PROTOCOL HIV 1/2 ANTIBODY/ANTIGEN SCREEN W/REFLEX TO HIV 1/2 ANTIBODY DIFFERENTIATION STAT 04/19/2025 12:51 AM EST HEPATITIS C ANTIBODY - ED W/REFLEX TO HCV QUANT PCR STAT 04/19/2025 12:51 AM EST ETHYL ALCOHOL PLASMA STAT 04/19/2025 12:51 AM EST BLOOD GAS PANEL, VENOUS STAT 04/19/2025 12:51 AM EST CBC WITH AUTO DIFFERENTIAL STAT 04/19/2025 12:51 AM EST COMPREHENSIVE METABOLIC PANEL, PLASMA STAT 04/19/2025 12:51 AM EST XR KNEE LEFT 3 VIEWS STAT 04/19/2025 12:16 AM EST XR TIBIA FIBULA LEFT 2+ VIEWS STAT 04/19/2025 12:16 AM EST XR FEMUR LEFT 2+ VIEWS STAT 12:16 AM EST XR HIP LEFT 2 OR 3 VIEWS STAT 04/19/2025 12:16 AM EST POCT GLUCOSE METER UNSOLICITED RESULTS Routine 04/18/2025 11:[address] OUTSIDE IMAGES 04/18/2025 7:[address] OUTSIDE IMAGES 04/18/2025 7:[address] OUTSIDE IMAGES 04/18/2025 7:[address] OUTSIDE IMAGES 04/18/2025 7:[address] OUTSIDE IMAGES 04/18/2025 7:2 8 PM EST XR OUTSIDE IMAGES 04/18/2025 6:3 8 PM EST XR OUTSIDE IMAGES 04/18/2025 6:3 8 PM EST from Last 3 Months Results * (ABNORMAL) Hemoglobin and hematocrit, blood (04/26/2025 7:29 AM EST) Only the most recent of4 resultswithin the time period is included. HGB 7.9(L) 11.2 - 15.7 g/dL LAB HEMATOLOGY METHOD 04/26/2025 7:41 AM EST [facility] HCT 23.4(L) 34.0 - 45.0 % LAB HEMATOLOGY METHOD 04/26/2025 7:41 AM EST [facility] Blood Venous blood specimen / Unknown Venipuncture / Unknown 04/26/2025 7:29 AM EST 04/26/2025 7:33 AM EST us Sandy Wilks PA LAB BLOOD ORDERABLES Final Result Performing Organization Address City/State/[facility] Co de Phone Number [facility] [address] [place] [address] * Transfuse RBC (04/25/2025 11:02 AM EST) us Maryjane Moore FACILITY EXAMINER BLOOD TRANSFUSION ORDERABLES Final Result * Type and screen (04/25/2025 7:46 AM EST) Only the most recent of2 resultswithin the time period is included. ABO/Rh O Positive 04/25/2025 7:50 AM EST BLOOD BANK Antibody Screen Negative 04/25/2025 7:50 AM EST BLOOD BANK Specimen Expiration 04/28/2025 23:59 04/25/2025 7:50 AM EST BLOOD BANK Blood Venous blood specimen / Unknown Venipuncture / Unknown 04/25/2025 7:46 AM EST 04/25/2025 7:50 AM EST Maryjane Moore APRN LAB BLOOD BANK TEST ORDERABLE S Final Result Performing Organization Address [facility]/ZIP Co de Phone Number BLOOD BANK [address] [place] [address], * Prepare Leukocyte Reduced RBC: 1 Units (04/25/2025 7:34 AM EST) Product Code [id number] CH BLOO D BANK Dispense Status Transfused BLOOD BANK Blood Expiration Date [id number] BLOOD BANK Unit Number [id number] B LOOD BANK Product Blood Type 5100 BLOOD BANK Blood Type O+ BLOOD BANK Crossmatch Compatible BLOOD BANK Other Maryjane Almanza Oscar FACILITY EXAMINER BLOOD BANK PRODUCT ORDERABLES Final Result Performing Organization Address [facility] Co de Phone Number BLOOD BANK [address] [place] [address], * Light Green Top (04/25/2025 5:35 AM EST) Extra Hold for add-ons 04/25/2025 8:01 AM EST [facility] Comment:Auto resulted. Blood Venous blood specimen / Unknown 04/25/2025 5:35 AM EST 04/25/2025 5:45 AM EST Bell Tang MD LAB BLOOD ORDERABLES Amy l Result Performing Organization Address City/[facility] Co de Phone Number [facility] [address] [place] [address] * (ABNORMAL) Magnesium (04/24/2025 5:20 AM EST) Only the most recent of3 resultswithin the time period is included. Magnesium, Plasma 1.7(L) 1.9 - 2.4 mg/dL 04/24/2025 5:55 AM EST [facility] Blood Venous blood specimen / Unknown Venipuncture / Unknown 04/24/2025 5:20 AM EST 04/24/2025 5:26 AM EST us Etta Jimenez FACILITY EXAMINER LAB BLOOD ORDERABLES Final Re sult [facility] [address] [place] [address] * (ABNORMAL) Basic metabolic panel (04/24/2025 5:20 AM EST) Only the most recent of3 resultswithin the time period is included. Glucose, Plasma 120(H) 74 - 99 mg/dL 04/24/2025 5:55 AM EST [facility] BUN, Plasma 20 8 - 23 mg/dL 04/24/2025 5:55 AM EST [facility] Creatinine, Plasma 0.51(L) 0.60 - 1.10 mg/dL 04/24/2025 5:55 AM EST [facility] BUN/Creatinine Ratio 39 04/24/2025 5:55 AM EST [facility] Sodium, Plasma 136 136 - 145 mmol/L 04/24/2025 5:55 AM EST [facility] Potassium, Plasma 3.6 3.6 - 4.9 mmol/L 04/24/2025 5:55 AM EST [facility] Chloride, Plasma 103 97 - 107 mmol/L 04/24/2025 5:55 AM EST [facility] CO2, Plasma 25 22 - 29 mmol/L 04/24/2025 5:55 AM EST [facility] Anion Gap 8 6 - 16 mmol/L 04/24/2025 5:55 AM EST [facility] Total Calcium, Plasma 8.2(L) 8.9 - 10.2 mg/dL 04/24/2025 5:55 AM EST [facility] eGFRcr 105.0 mL/min/1.7 3m*2 04/24/2025 5:55 AM EST [facility] Comment:Reported eGFRcr in m L/min/1.73m2 is based the CKD-EPI 2020 equation that does not use a race coefficient. Blood Venous blood specimen / Unknown Venipuncture / Unknown 04/24/2025 5:20 AM EST 04/24/2025 5:26 AM EST us Etta Jimenez NICOLE LAB BLOOD ORDERABLES Final Re sult [facility] [address] [place] [address] * (ABNORMAL) CBC W/O Differential (04/22/2025 3:25 AM EST) Only the most recent of2 resultswithin the time period is included. WBC Count 8.07 3.70 - 10.30 10*3/uL LAB HEMATOLOGY METHOD 04/22/2025 3:42 AM EST [facility] RBC Count 3.46(L) 3.90 - 5.20 10*6/uL LAB HEMATOLOGY METHOD 04/22/2025 3:42 AM EST [facility] HGB 10.4(L) 11.2 - 15.7 g/dL LAB HEMATOLOGY METHOD 04/22/2025 3:42 AM EST [facility] HCT 31.2(L) 34.0 - 45.0 % LAB HEMATOLOGY METHOD 04/22/2025 3:42 AM EST [facility] Platelet Count 224 155 - 369 10*3/uL LAB HEMATOLOGY METHOD 04/22/2025 3:42 AM EST [facility] MCV 90 79 - 98 fL LAB HEMATOLOGY METHOD 04/22/2025 3:42 AM EST [facility] MCH 30.1 26.0 - 32.0 pg LAB HEMATOLOGY METHOD 04/22/2025 3:42 AM EST [facility] MCHC 33.3 30.7 - 35.5 g/dL LAB HEMATOLOGY METHOD 04/22/2025 3:42 AM EST [facility] RDW 12.2 11.5 - 14.5 % LAB HEMATOLOGY METHOD 04/22/2025 3:42 AM EST [facility] MPV 9.0 8.8 - 12.5 fL LAB HEMATOLOGY METHOD 04/22/2025 3:42 AM EST [facility] nRBC 0.0 <=0.0 per 100 WBCs LAB HEMATOLOGY METHOD 04/22/2025 3:42 AM EST [facility] Blood Venous blood specimen / Unknown Venipuncture / Unknown 04/22/2025 3:25 AM EST 04/22/2025 3:31 AM EST [facility] FACILITY EXAMINER LAB BLOOD ORDERABLES Final Result Performing Organization Address City/[facility] Co de Phone Number [facility] [address] [place] [address] * Phosphorus, Plasma (04/22/2025 3:25 AM EST) Only the most recent of2 resultswithin the time period is included. Phosphorus, Plasma 3.6 2.5 - 4.5 mg/dL 04/22/2025 4:00 AM EST [facility] Blood Venous blood specimen / Unknown Venipuncture / Unknown 04/22/2025 3:25 AM EST 04/22/2025 3:31 AM EST [facility] Final Result Performing Organization Address City/[facility] de Phone Number [facility] [address] [place] [address] * XR Knee Left 3 Views (04/21/2025 6:08 PM EST) Only the most recent of2 resultswithin the time period is included. Anatomical Region Laterality Modality Lower Extremities, Knee [...] Left 2+ Views (04/21/2025 6:08 PM EST) Only the most recent of2 resultswithin the time period is included. Anatomical Region Laterality Modality Lower Extremities, Femur [...] Per this written report. Drafted by Poli aPlacio MD on 04/22/2025 6:32 AM Final report signed by Poli Palacio MD on 56:36 AM us Vikki Lucia MD IMG XR PROCEDURES Final Re sult * FL Less than 1 Hour Intraoperative (04/21/2025 5:10 PM EST) Narrative IMAGING - 04/21/2025 5:24 PM EST Images were obtained for surgical purposes. See Wai Motley's surgical note in the patient's chart for the findings. us Wai Motley MD IMG FLUOROSCOPY PROCEDURES Fi nal Result IMAGING * Peripheral IV (04/21/2025 2:55 PM EST) Narrative Aishwarya Manzano CRNA - 04/21/2025 2:55 PM EST Aishwarya Manzano CRNA 04/21/2025 3:04 PM Peripheral IV Date/Time: 04/21/2025 2:55 PM Inserted by: Aishwarya Manzano CRNA Placement Needle size: 18 G Location: arm Site prep: alcohol Technique: anatomical landmarks Attempts: 1 Yasir Juarez MD ANESTHESIA ORDERABLES Final R esult * CT AN ELECTIVE ENDOTRACHEAL AIRWAY, PB ANESTHESIA PLACEHOLDER (04/21/2025 2:49 PM EST) Narrative Aishwarya Manzano CRNA - 04/21/2025 2:49 PM EST Aishwarya Manzano CRNA 04/21/2025 3:04 PM Airway Date/Time: 04/21/2025 2:49 PM Reason: elective Airway not difficult General Information and Staff Patient location during procedure: OR CAR SALTER: Aishwarya Manzano CRNA Performed: XUAN Patient Condition Indications for airway management: anesthesia Final Airway Details Final airway type: endotracheal airway Successful airway: ETT Cuffed: yes Successful intubation technique: direct laryngoscopy Adjuncts used in placement: intubating stylet Endotracheal tube insertion site: oral Blade: Bullard Blade size: #2 ETT size (mm): 7.0 Cormack-Lehane Classification: grade I - full view of glottis Measured from: lips Yasir Juarez MD ANESTHESIA ORDERABLES Final R esult * POCT glucose meter (04/21/2025 2:15 PM EST) Only the most recent of2 resultswithin the time period is included. POCT Glucose 93 74 - 99 mg/dL 04/21/2025 2:17 PM EST [facility] Comment:Accuracy of a glucos e result [...] for testing. Comment 04/21/2025 2:17 PM EST [facility] Rand Maker ID Veronica Trevion 04/21/2025 2:17 PM EST [facility] Device ID [id number] 04/21/2025 2:17 PM EST [facility] Specimen Type POC Capillary 04/21/2025 2:17 PM EST [facility] Blood Capillary blood specimen / Unknown 04/21/2025 2:15 PM EST 04/21/2025 2:17 PM EST Vikki Lucia MD LAB POINT OF CARE TEST DOCKED DEVICE UNSOLICITED RESULTS Final Result Performing Organization Address [facility] de Phone Number [facility] [address] [place] [address] * Methicillin Resistant Staphylococcus aureus (MRSA) by PCR (04/21/2025 12:57 PM EST) Pathologist [facility] Methicillin Resistant Staphylococcus aureus (MRSA) by PCR Not Detected Not Detected 04/21/2025 3:[address] [facility] Swab Both anterior nares / Unknown Non-blood Collection / Unknown 04/21/2025 12:57 PM EST 04/21/2025 1:34 PM EST Narrative [facility] - 04/21/2025 3:35 PM EST [...] GENERAL ORDERABLES Final Result Performing Organization Address [facility] [place] [address] * ECHO, ADULT TRANSTHORACIC LIMITED (04/21/2025 10:51 AM EST) Pathologist [facility] BSA 1.61 m2 MAAME ISCV Height 160.0 [...] Ao Diam 36 [address] MAAME I[address]V PA CT(ACCEL) 39.8 mmHg MAAME ISCV LV mean PG [...] is no recent study available for direct ukwx-aa-nhis comparison. Left Ventricle Based on the linear [...] is no recent study available for direct [id number]-zhbi comparison. us Rupinder Villar APRN CV ECHO PROCEDURES Final Resul t * Prothrombin Time/INR (04/20/2025 1:48 AM EST) Only the most recent of2 resultswithin the time period is included. Prothrombin Time 13.7 12.0 - 14.3 sec LAB COAGULATION METHOD 04/20/2025 2:26 AM EST [facility] INR 1.0 0.9 - 1.1 LAB COAGULATION METHOD 04/20/2025 2:26 AM EST [facility] Blood Venous blood specimen / Unknown Venipuncture / Unknown 04/20/2025 1:48 AM EST 04/20/2025 1:56 AM EST Narrative [facility] - 04/20/2025 2:26 AM EST OPTIMAL INR RANGES FOR PATIENT ON ORAL ANTICOAGULANT THERAPY Prevention of venous thromboembolism INR 2.0 to 3.0 In patients with heart disease: Atrial fibrillation INR 2.0 to 3.0 Valvular heart disease INR 2.0 to 3.0 Tissue heart valves INR 2.0 to 3.0 Mechanical prosthetic valves INR 2.5 to 3.5 Prevention of recurrent UT INR 2.5 to 3.5 us Vikki Lucia MD LAB BLOOD ORDERABLES Final Result [facility] [address] [place] [address] * Bone Specific Alkaline Phosphatase (04/19/2025 2:38 PM EST) Bone Specific Alkaline Phosphatase 13.3 ug/L 04/19/2025 4:58 PM EST [facility] Comment: BSAP (Ostase) Reference Values, Female, age 18 years and up: Premenopausal: 4.5 to 16.9 ug/L Postmenopausal: 7.0 to 22.4 ug/L Blood Venous blood specimen / Unknown Venipuncture / Unknown 04/19/2025 2:38 PM EST 04/19/2025 3:14 PM EST Rupinder Villar APRN LAB REF LAB BLOOD AND FLUID OR D Final Result Performing Organization Address [facility]/ZIP Co de Phone Number [facility] [address] [place] [address] * (ABNORMAL) Total Protein, Serum (04/19/2025 2:38 PM EST) Pathologist [facility] Total Protein 5.7(L) 6.2 - 7.7 g/dL 04/19/2025 3:43 PM EST [facility] Blood Venous blood specimen / Unknown Venipuncture / Unknown 04/19/2025 2:38 PM EST 04/19/2025 3:14 PM EST Rupinder Villar APRN LAB BLOOD ORDERABLES Final Res ult Performing Organization Address City/[facility]/ZIP Co de Phone Number [facility] [address] [place] [address] * (ABNORMAL) Protein Electrophoresis, Serum (04/19/2025 2:38 PM EST) Pathologist [facility] Albumin Electrophoresis, Serum 3.4(L) 3.6 - 4.7 g/dL 04/20/2025 4:04 AM EST [facility] Alpha 1 Globulin Electrophoresis, Serum 0.3 0.2 - 0.4 g/dL 04/20/2025 4:04 AM EST [facility] Alpha 2 Globulin Electrophoresis, Serum 0.7 0.5 - 0.9 g/dL 04/20/2025 4:04 AM EST [facility] Beta 1 Globulin Electrophoresis, Serum 0.4 0.3 - 0.5 g/dL 04/20/2025 4:04 AM EST [facility] Beta 2 Globulin Electrophoresis, Serum 0.3 0.2 - 0.5 g/dL 04/20/2025 4:04 AM EST [facility] Gamma Globulin Electrophoresis, Serum 0.6 0.6 - 1.5 g/dL 04/20/2025 4:04 AM EST [facility] Interpretation, Serum Protein Electrophoresis Pathology report to follow. 04/20/2025 4:04 AM EST [facility] Blood Venous blood specimen / Unknown Venipuncture / Unknown 04/19/2025 2:38 PM EST 04/19/2025 3:14 PM EST Rupinder Villar APRN LAB BLOOD ORDERABLES Final Res ult Performing Organization Address [facility]/ZIP Co de Phone Number [facility] [address] [place] [address] * Protein electrophoresis serum, pathologist interpretation (04/19/2025 2:38 PM EST) Clinical Diagnosis, SPEP Pathologic fracture ISO osteoporosis 04/20/2025 2:44 PM EST [facility] Interpretation , SPEP The protein [...] diagnosis or interpretation. 04/20/2025 2:44 PM EST [facility] Pathologist Signature, SPEP Reviewed by: Randy Torres MD 04/20/2025 2:44 PM EST [facility] LAB CP ASR DISCLAIMER Yes 04/20/2025 2:44 PM EST [facility] Blood Venous blood specimen / Unknown Venipuncture / Unknown 04/19/2025 2:38 PM EST 04/19/2025 3:14 PM EST Rupinder Villar APRN LAB PATHOLOGY ORDERABLES Final Result Performing Organization Address City/[facility] [address]/ZIP Co de Phone Number [facility] [address] [place] [address] * Ionized calcium, serum (04/19/2025 2:38 PM EST) Ionized Calcium, Serum 4.9 4.6 - 5.3 mg/dL LAB HEMATOLOGY METHOD 04/19/2025 4:[address] [facility] Blood Venous blood specimen / Unknown Venipuncture / Unknown 04/19/2025 2:38 PM EST 04/19/2025 3:14 PM EST Rupinder Villar APRN LAB BLOOD ORDERABLES Final Res ult [facility] [address] [place] [address] * Vitamin D 25 hydroxy (04/19/2025 2:38 PM EST) Vitamin D 25 Hydroxy 24.7 20.0 - 80.0 ng/mL 04/19/2025 5:[address] [facility] Blood Venous blood specimen / Unknown Venipuncture / Unknown 04/19/2025 2:38 PM EST 04/19/2025 3:15 PM EST Narrative [facility] - 04/19/2025 5:10 PM EST Testing performed on [employer], standardized against NIST SRM [id number]. When testing [...] APRN LAB BLOOD [place] [address] * PTH Intact Total (04/19/2025 2:38 PM EST) PTH Intact Total 72 9 - 77 pg/mL 04/19/2025 4:53 PM EST [facility] Blood Venous blood specimen / Unknown Venipuncture / Unknown 04/19/2025 2:38 PM EST 04/19/2025 3:19 PM EST Narrative [facility] - 04/19/2025 4:53 PM EST Assay performed by immunoassay at the [facility]. Performed on [employer] chemiluminescent immunoassay, tractable to the World Health Organization's first international standard for PTH from the [facility], Code 79/500. Results obtained from different test methods or kits cannot be used interchangeably. us Rupinder Villar APRN LAB BLOOD ORDERABLES Final Res ult [facility] [address] [place] [address] * LDL cholesterol, direct (04/19/2025 2:38 PM EST) Direct LDL Cholesterol 38 <100 mg/dL 04/20/2025 1:47 AM EST [facility] Comment: LDL Cholesterol reference range (age >17 years): Optimal: <100 mg/dL Near or above optimal: 100 to 129 mg/dL Borderline high: 130 to 159 mg/dL High: 160 to 189 mg/dL Very high: >189 mg/dL Fasting greater than or equal to 8 hours? unknown 04/20/2025 1:47 AM EST [facility] Blood Venous blood specimen / Unknown Venipuncture / Unknown 04/19/2025 2:38 PM EST 04/19/2025 2:47 PM EST us Vikki Lucia MD LAB BLOOD ORDERABLES Final Result [facility] [address] [place] [address] * Hemoglobin A1c (04/19/2025 2:38 PM EST) Hemoglobin A1c 5.3 <5.7 % 04/19/2025 7:47 PM EST [facility] Blood Venous blood specimen / Unknown Venipuncture / Unknown 04/19/2025 2:38 PM EST 04/19/2025 3:16 PM EST Narrative [facility] - 04/19/2025 7:47 PM EST HA1C Interpretive Data: Diagnosis of Diabetes: Diabetic > or = 6.5% Pre-diabetic 5.7 to 6.4% Non-diabetic < or = 5.6% Glycemic Targets for Type I and Type II Diabetics: Non- Adults <7.0% Adults <6.0% Children and Adolescents <7.5% Source: Citizen Of [place] Diabetes Association. Standards of medical care in diabetes,2017. Diabetes Care.2017:40 (suppl 1):S1-S135. Rupinder Villar APRN LAB BLOOD ORDERABLES Final Res ult Performing Organization Address [facility] Co de Phone Number [facility] [address] [place] [address] * Vitamin B12 (04/19/2025 2:38 PM EST) Vitamin B12, Serum 573 210 - 1,033 pg/mL 04/19/2025 3:58 PM EST [facility] Blood Venous blood specimen / Unknown Venipuncture / Unknown 04/19/2025 2:38 PM EST 04/19/2025 3:14 PM EST Rupinder Villar APRN LAB BLOOD ORDERABLES Final Res ult Performing Organization Address [facility] Co de Phone Number [facility] [address] [place] [address] * (ABNORMAL) Comprehensive Metabolic Panel, Plasma (04/19/2025 2:38 PM EST) Only the most recent of2 resultswithin the time period is included. Glucose, Plasma 104(H) 74 - 99 mg/dL 04/19/2025 3:15 PM EST [facility] BUN, Plasma 10 8 - 23 mg/dL 04/19/2025 3:15 PM EST [facility] Creatinine, Plasma 0.66 0.60 - 1.10 mg/dL 04/19/2025 3:15 PM EST [facility] BUN/Creatinine Ratio 15 04/19/2025 3:15 PM EST [facility] Sodium, Plasma 141 136 - 145 mmol/L 04/19/2025 3:15 PM EST [facility] Potassium, Plasma 3.5(L) 3.6 - 4.9 mmol/L 04/19/2025 3:15 PM EST [facility] Chloride, Plasma 105 97 - 107 mmol/L 04/19/2025 3:15 PM EST [facility] CO2, Plasma 27 22 - 29 mmol/L 04/19/2025 3:15 PM EST [facility] Anion Gap 9 6 - 16 mmol/L 04/19/2025 3:15 PM EST [facility] Total Calcium, Plasma 9.0 8.9 - 10.2 mg/dL 04/19/2025 3:15 PM EST [facility] Total Protein 6.0(L) 6.3 - 7.9 g/dL 04/19/2025 3:15 PM EST [facility] Albumin, Plasma 3.8 3.5 - 5.2 g/dL 04/19/2025 3:15 PM EST [facility] AST, Plasma 23 10 - 35 U/L 04/19/2025 3:15 PM EST [facility] ALT, Plasma 25 10 - 35 U/L 04/19/2025 3:15 PM EST [facility] Alkaline Phosphatase, Plasma 108 46 - 142 U/L 04/19/2025 3:15 PM EST [facility] Total Bilirubin, Plasma 0.4 0.2 - 1.1 mg/dL 04/19/2025 3:15 PM EST [facility] eGFRcr 98.7 mL/min/1.7 3m*2 04/19/2025 3:15 PM EST [facility] Comment:Reported eGFRcr in m L/min/1.73m2 is based the CKD-EPI 2020 equation that does not use a race coefficient. Blood Venous blood specimen / Unknown Venipuncture / Unknown 04/19/2025 2:38 PM EST 04/19/2025 2:47 PM EST us Rupinder Villar FACILITY EXAMINER LAB BLOOD ORDERABLES Final Res ult Performing Organization Address [facility]/ZIP Co de Phone Number [facility] [address] [place] [address] * Troponin T, High Sensitivity, 2 Hour, Plasma (04/19/2025 4:28 AM EST) Troponin T, High Sensitivity, 2 Hour 8 <14 ng/L 04/19/2025 5:[address] [facility] Blood Venous blood specimen / Unknown Venipuncture / Unknown 04/19/2025 4:28 AM EST 04/19/2025 4:47 AM EST us Jarett Anderson DO LAB BLOOD ORDERABLES Final R esult Performing Organization Address [facility]/ZIP Co de Phone Number [facility] [address] [place] [address] * CT Femur Left wo IV Contrast [...] Dennis Ibrahim MD on 04/19/2025 4:24 AM us Cecil Chauhan MD IMG CT PROCEDURES Final R esult * (ABNORMAL) Opiates Confirm Urine (04/19/2025 2:47 AM EST) Codeine <50 <50 ng/mL 04/22/2025 4:18 AM [facility] Codeine Glucuronide <50 <50 ng/mL 04/22/2025 4:18 AM [facility] Desmethyl Tramadol <50 <50 ng/mL 04/22/2025 4:18 AM [facility] EDDP - Methadone Metabolite <50 <50 ng/mL 04/22/2025 4:18 AM [facility] Hydrocodone 302(H) <50 ng/mL 04/22/2025 4:18 AM [facility] Hydromorphone <50 <50 ng/mL 04/22/2025 4:18 AM [facility] Hydromorphone Glucuronide 357(H) <50 ng/mL 04/22/2025 4:18 AM [facility] Comment:Metabolite of Hydrom orphone Meperidine <50 <50 ng/mL 04/22/2025 4:18 AM [facility] Methadone <50 <50 ng/mL 04/22/2025 4:18 AM [facility] 6 Monoacetyl morphine <10 <10 ng/mL 04/22/2025 4:18 AM [facility] Morphine <50 <50 ng/mL 04/22/2025 4:18 AM [facility] Morphine Glucuronide <50 <50 ng/mL 04/22/2025 4:18 AM [facility] Comment:Metabolite of Morphi ne Naloxone <50 <50 ng/mL 04/22/2025 4:18 AM [facility] Naloxone Glucuronide >1,000(H) <50 ng/mL 04/22/2025 4:18 AM [facility] Comment:Metabolite of Naloxo ne Normeperidine <50 <50 ng/mL 04/22/2025 4:18 AM EST [facility] Tramadol <50 <50 ng/mL 04/22/2025 4:18 AM EST [facility] Urine Urine specimen obtained by clean catch procedure / Unknown Non-blood Collection / Unknown 04/19/2025 2:47 AM EST 04/19/2025 3:04 AM EST Narrative [facility] - 04/22/2025 4:18 AM EST Drug analysis is confirmed by LC-MS/MS (LC Tandem Mass Spectrometry) on Urine specimens. This test was developed and its performance characteristics determined by [facility]. It has not been cleared or approved by the FDA. The laboratory is regulated under CLIA as qualified to perform high-complexity testing. This test is used for clinical purposes. Testing is performed at the [facility]. Julia Jacobson APRN LAB URINE ORDERABLES Final Result [facility] [address] [place] [address] * Drug abuse screen (04/19/2025 2:47 AM EST) Amphetamine Screen Urine Negative Cutoff: 500 ng/mL 04/19/2025 3:35 AM EST [facility] Benzodiazepines Screen Urine Negative Cutoff: 200 ng/mL 04/19/2025 3:35 AM EST [facility] Cannabinoid Screen Urine Negative Cutoff: 50 ng/mL 04/19/2025 3:35 AM EST [facility] Cocaine Screen Urine Negative Cutoff: 300 ng/mL 04/19/2025 3:35 AM EST [facility] Barbiturate Screen Urine Negative Cutoff: 200 ng/mL 04/19/2025 3:35 AM EST [facility] Opiate Screen Urine Presumptive positive. Confirmation by LC-MS/MS to follow. Cutoff: 300 ng/mL 04/19/2025 3:35 AM EST [facility] Methadone Screen Urine Negative Cutoff: 300 ng/mL 04/19/2025 3:35 AM EST [facility] Buprenorphine Screen Urine Negative Cutoff: 10 ng/mL 04/19/2025 3:35 AM [facility] Fentanyl Screen Urine Negative Cutoff: 1 ng/mL 04/19/2025 3:35 AM EST [facility] Oxycodone Screen Urine Negative Cutoff: 100 ng/mL 04/19/2025 3:35 AM EST [facility] Urine Urine specimen obtained by clean catch procedure / Unknown Non-blood Collection / Unknown 04/19/2025 2:47 AM EST 04/19/2025 3:04 AM EST us Julia Jacobson APRN LAB URINE ORDERABLES Final Result [facility] [address] [place] [address] * (ABNORMAL) Urinalysis with reflex microscopic (Culture NOT Included) (04/19/2025 2:47 AM EST) Color, Urine Yellow LAB URINALYSIS - AUTOMATED METHOD 04/19/2025 3:00 AM [facility] Clarity, Urine Clear LAB URINALYSIS - AUTOMATED METHOD 04/19/2025 3:00 AM [facility] Spec [place], Urine >1.030(H) 1.005 - 1.030 LAB URINALYSIS - AUTOMATED METHOD 04/19/2025 3:00 AM [facility] pH, Urine 7.5 5.0 - 8.0 LAB URINALYSIS - AUTOMATED METHOD 04/19/2025 3:00 AM [facility] Protein, Urine Negative Negative mg/dL LAB URINALYSIS - AUTOMATED METHOD 04/19/2025 3:00 AM [facility] Glucose, Urine Negative Negative mg/dL LAB URINALYSIS - AUTOMATED METHOD 04/19/2025 3:00 AM [facility] Ketones, Urine Negative Negative mg/dL LAB URINALYSIS - AUTOMATED METHOD 04/19/2025 3:00 AM [facility] Blood, Urine Negative Negative LAB URINALYSIS - AUTOMATED METHOD 04/19/2025 3:00 AM [facility] Bilirubin, Urine Negative Negative LAB URINALYSIS - AUTOMATED METHOD 04/19/2025 3:00 AM [facility] Urobilinogen, Urine 1.0 0.2 to 1.0 mg/dL LAB URINALYSIS - AUTOMATED METHOD 04/19/2025 3:00 AM EST [facility] Leukocytes, Urine Negative Negative LAB URINALYSIS - AUTOMATED METHOD 04/19/2025 3:00 AM EST [facility] Nitrite, Urine Negative Negative LAB URINALYSIS - AUTOMATED METHOD 04/19/2025 3:00 AM EST [facility] Urine Urine specimen obtained by clean catch procedure / Unknown Non-blood Collection / Unknown 04/19/2025 2:47 AM EST 04/19/2025 2:58 AM EST Jarett Almanza [facility] LAB URINE ORDERABLES Final R esult Performing Organization Address City/[facility] [address]/ZIP Co de Phone Number [facility] [address] [place] [address] * Troponin now and 120 min (04/19/2025 1:41 AM EST) Troponin T, High Sensitivity, 0 Hour 8 <14 ng/L 04/19/2025 2:25 AM EST [facility] Blood Venous blood specimen / Unknown Venipuncture / Unknown 04/19/2025 1:41 AM EST 04/19/2025 1:58 AM EST Jarett Almanza [facility] LAB [facility]LOOD [facility]ABLES [facility] Performing Organization Address City/[facility] [address]/ZIP Co de Phone Number [facility] [address] [place] [address] * Anti Xa Level Unfractionated Heparin (04/19/2025 1:41 AM EST) Anti Xa Level Unfractionated Heparin <0.11 <1.00 IU/mL 04/19/2025 2:06 AM EST [facility] Blood Venous blood specimen / Unknown Venipuncture / Unknown 04/19/2025 1:41 AM EST 04/19/2025 1:52 AM EST Narrative [facility] - 04/19/2025 2:06 AM EST Therapeutic Range: UFH Full Dose and ACS/UT protocols*: 0.30 - 0.70 IU/mL UFH Low Dose protocol*: 0.25 - 0.50 IU/mL UFH prophylaxis: Not established Jarettleelee Anderson DO LAB BLOOD ORDERABLES Final R esult Performing Organization Address City/[facility] [address]/[facility] Co de Phone Number [facility] [address] [place] [address] * EKG now - STAT (adult) (04/19/2025 1:32 AM EST) EKG DIAGNOSIS CLASS Normal MUSE ECG Ventricular Rate 87 BPM MUSE ECG Atrial Rate [address] Interval 140 ms MUSE ECG QRSD Interval 94 ms MUSE ECG QT Interval 388 ms MUSE ECG QTC Interval 466 ms MUSE ECG P [place] 70 degrees MUSE ECG R [place] 47 degrees MUSE ECG T Wave [place] 69 degrees MUSE ECG Diagnosis Normal sinus rhythm MUSE ECG Diagnosis Normal ECG MUSE ECG Diagnosis MUSE ECG Diagnosis Confirmed by Dennis Castaneda ([id number]) on 04/19/2025 9:10:21 AM MUSE ECG 04/19/2025 1:32 AM EST 04/19/2025 9:10 AM EST Jarett Anderson DO ECG ORDERABLES Final Result Performing Organization Address [facility] de Phone Number MUSE ECG * CT Knee Left wo IV Contrast [...] Ibrahim MD on 04/19/2025 3:23 AM us Cecil Chauhan MD IMG CT PROCEDURES Final R esult * CT Head wo IV Contrast (04/19/2025 [...] Dennis Ibrahim MD on 04/19/2025 2:37 AM Julia Jacobson APRN IMG CT PROCEDURES Final Res ult * ED HIV 1/2 Antibody/Antigen Screen w/Reflex to HIV 1/2 Differentiation (04/19/2025 12:51 AM EST) Pathologist [facility] HIV 1 & 2 Antibody/Antigen Screen Non Reactive Non Reactive 04/19/2025 1:50 AM EST [facility] Comment:Screening for HIV 1 & 2 antibodies, and P24 antigen is NONREACTIVE. No confirmatory testing is required. Blood Venous blood specimen / Unknown Venipuncture / Unknown 04/19/2025 12:51 AM EST 04/19/2025 1:11 AM EST Julia Jacobson APRN LAB BLOOD ORDERABLES Final Result [facility] [address] [place] [address] * Ethyl Alcohol Plasma (04/19/2025 12:51 AM EST) Ethanol Plasma <10 <10 mg/dL 04/19/2025 1:30 AM EST [facility] Blood Venous blood specimen / Unknown Venipuncture / Unknown 04/19/2025 12:51 AM EST 04/19/2025 1:00 AM EST Narrative [facility] - 04/19/2025 1:30 AM EST Enzymatic Assay: Performed on [employer]. Julia Jacobson APRN LAB BLOOD ORDERABLES Final Result Performing Organization Address City/[facility] [address]/ZIP Co de Phone Number [facility] [address] [place] [address] * (ABNORMAL) Acetaminophen, Quantitative, Plasma (04/19/2025 12:51 AM EST) Pathologist [facility] Acetaminophen <5.0(L) 10.0 - 30.0 g/mL 04/19/2025 2:29 AM EST [facility] Blood Venous blood specimen / Unknown Venipuncture / Unknown 04/19/2025 12:51 AM EST 04/19/2025 1:00 AM EST Narrative [facility] - 04/19/2025 2:29 AM EST Therapeutic: 10 to 30 ug/mL Supratherapeutic: >35 ug/mL Jarett Anderson DO LAB BLOOD ORDERABLES Final R esult Performing Organization Address City/[facility] [address]/ZIP Co de Phone Number [facility] [address] [place] [address] * Hepatitis C Antibody - ED (04/19/2025 12:51 AM EST) Pathologist [facility] Hepatitis C Antibody Negative Negative 04/19/2025 1:50 AM EST [facility] Blood Venous blood specimen / Unknown Venipuncture / Unknown 04/19/2025 12:51 AM EST 04/19/2025 1:10 AM EST Julia Jacobson APRN LAB BLOOD ORDERABLES Final Result Performing Organization Address City/[facility] [address]/ZIP Co de Phone Number [facility] [address] [place] [address] * (ABNORMAL) CBC w/diff (04/19/2025 12:51 AM EST) Pathologist [facility] WBC Count 11.36(H) 3.70 - 10.30 10*3/uL LAB HEMATOLOGY METHOD 04/19/2025 1:04 AM [facility] RBC Count 4.30 3.90 - 5.20 10*6/uL LAB HEMATOLOGY METHOD 04/19/2025 1:04 AM [facility] HGB 13.0 11.2 - 15.7 g/dL LAB HEMATOLOGY METHOD 04/19/2025 1:04 AM [facility] HCT 38.4 34.0 - 45.0 % LAB HEMATOLOGY METHOD 04/19/2025 1:04 AM [facility] Platelet Count 256 155 - 369 10*3/uL LAB HEMATOLOGY METHOD 04/19/2025 1:04 AM [facility] MCV 89 79 - 98 fL LAB HEMATOLOGY METHOD 04/19/2025 1:04 AM [facility] MCH 30.2 26.0 - 32.0 pg LAB HEMATOLOGY METHOD 04/19/2025 1:04 AM [facility] MCHC 33.9 30.7 - 35.5 g/dL LAB HEMATOLOGY METHOD 04/19/2025 1:04 AM [facility] RDW 12.1 11.5 - 14.5 % LAB HEMATOLOGY METHOD 04/19/2025 1:04 AM [facility] MPV 9.0 8.8 - 12.5 fL LAB HEMATOLOGY METHOD 04/19/2025 1:04 AM [facility] nRBC 0.0 <=0.0 per 100 WBCs LAB HEMATOLOGY METHOD 04/19/2025 1:04 AM [facility] Differential Type Automated LAB HEMATOLOGY METHOD 04/19/2025 1:04 AM [facility] Neutrophils % 83 % LAB HEMATOLOGY METHOD 04/19/2025 1:04 AM [facility] Lymphocytes % 11 % LAB HEMATOLOGY METHOD 04/19/2025 1:04 AM [facility] Monocytes % 6 % LAB HEMATOLOGY METHOD 04/19/2025 1:04 AM [facility] Eosinophils % 0 % LAB HEMATOLOGY METHOD 04/19/2025 1:04 AM [facility] Basophils % 0 % LAB HEMATOLOGY METHOD 04/19/2025 1:04 AM [facility] Immature Granulocytes % 0 % LAB HEMATOLOGY METHOD 04/19/2025 1:04 AM [facility] Neutrophils Absolute 9.27(H) 1.60 - 6.10 10*3/uL LAB HEMATOLOGY METHOD 04/19/2025 1:04 AM EST [facility] Lymphocytes Absolute 1.27 1.20 - 3.90 10*3/uL LAB HEMATOLOGY METHOD 04/19/2025 1:04 AM EST [facility] Monocytes Absolute 0.72 0.30 - 0.90 10*3/uL LAB HEMATOLOGY METHOD 04/19/2025 1:04 AM EST [facility] Eosinophils Absolute 0.03 0.00 - 0.50 10*3/uL LAB HEMATOLOGY METHOD 04/19/2025 1:04 AM EST [facility] Basophils Absolute 0.03 0.00 - 0.10 10*3/uL LAB HEMATOLOGY METHOD 04/19/2025 1:04 AM EST [facility] Immature Granulocytes Absolute 0.04 0.00 - 0.06 10*3/uL LAB HEMATOLOGY METHOD 04/19/2025 1:04 AM EST [facility] Blood Venous blood specimen / Unknown Venipuncture / Unknown 04/19/2025 12:51 AM EST 04/19/2025 1:01 AM EST Narrative [facility] - 04/19/2025 1:04 AM EST Therapeutic decision making should be based on absolute values, rather than percentages. us Julia Jacobson APRN LAB BLOOD ORDERABLES Final Result [facility] [address] [place] [address] * Thyroid Stimulating Hormone, Plasma (04/19/2025 12:51 AM EST) Thyroid Stimulating Hormone, Plasma 3.08 0.40 - 4.20 uIU/mL 04/19/2025 2:29 AM EST [facility] Blood Venous blood specimen / Unknown Venipuncture / Unknown 04/19/2025 12:51 AM EST 04/19/2025 1:00 AM EST us Jarett Anderson DO LAB BLOOD ORDERABLES Final R esult [facility] [address] [place] [address] * Free T4, Plasma (04/19/2025 12:51 AM EST) Free T4, Plasma 1.4 0.8 - 1.7 ng/dL 04/19/2025 2:29 AM EST [facility] Blood Venous blood specimen / Unknown Venipuncture / Unknown 04/19/2025 12:51 AM EST 04/19/2025 1:00 AM EST Jarett Anderson DO LAB BLOOD ORDERABLES Final R esult [facility] [address] [place] [address] * (ABNORMAL) Blood gas panel, venous (04/19/2025 12:51 AM EST) pH, Venous 7.34 7.32 - 7.43 LAB HEMATOLOGY METHOD 04/19/2025 1:06 AM EST [facility] pCO2, Venous 50 37 - 52 mmHg LAB HEMATOLOGY METHOD 04/19/2025 1:06 AM EST [facility] pO2, Venous 40 25 - 40 mmHg LAB HEMATOLOGY METHOD 04/19/2025 1:06 AM EST [facility] SO2, Measured, Venous 73 65 - 80 % LAB HEMATOLOGY METHOD 04/19/2025 1:06 AM [facility] Base Excess, Venous 0.3 -2.0 - 3.0 mmol/L LAB HEMATOLOGY METHOD 04/19/2025 1:06 AM EST [facility] Bicarbonate, Calculated, Venous 27(H) 22 - 26 mmol/L LAB HEMATOLOGY METHOD 04/19/2025 1:06 AM EST [facility] Hematocrit, Whole Blood 41.6 34.0 - 45.0 % LAB HEMATOLOGY METHOD 04/19/2025 1:06 AM EST [facility] Sodium, Whole Blood 141 136 - 145 mmol/L LAB HEMATOLOGY METHOD 04/19/2025 1:06 AM [facility] Potassium, Whole Blood 3.7 3.6 - 4.9 mmol/L LAB HEMATOLOGY METHOD 04/19/2025 1:06 AM EST [facility] Chloride, Whole Blood 106 97 - 107 mmol/L LAB HEMATOLOGY METHOD 04/19/2025 1:06 AM EST [facility] Glucose, Whole Blood 116(H) 74 - 99 mg/dL LAB HEMATOLOGY METHOD 04/19/2025 1:06 AM EST [facility] Lactate, Venous, Whole Blood 1.7 0.5 - 2.2 mmol/L LAB HEMATOLOGY METHOD 04/19/2025 1:06 AM EST [facility] Ionized Calcium, Whole Blood 4.4(L) 4.6 - 5.1 mg/dL LAB HEMATOLOGY METHOD 04/19/2025 1:06 AM EST [facility] Blood Venous blood specimen / Unknown Venipuncture / Unknown 04/19/2025 12:51 AM EST 04/19/2025 1:04 AM EST us Julia Jacobson APRN LAB BLOOD ORDERABLES Final Result Performing Organization Address City/[facility] [address]/ZIP Co de Phone Number [facility] [address] [place] [address] * Salicylate level (04/19/2025 12:51 AM EST) Salicylate, Quantitative, Plasma <1.0 <25 mg/dL mg/dL 04/19/2025 2:29 AM EST [facility] Blood Venous blood specimen / Unknown Venipuncture / Unknown 04/19/2025 12:51 AM EST 04/19/2025 1:00 AM EST Narrative [facility] - 04/19/2025 2:29 AM EST Therapeutic Range: <25 mg/dL Supratherapeutic Level: >30 mg/dL us Jarett Anderson DO LAB BLOOD ORDERABLES Final R esult [facility] [address] [place] [address] * XR Tibia Fibula Left 2+ Views [...] on 04/19/2025 12:40 AM us Julia Jacobson FACILITY EXAMINER IMG XR PROCEDURES Final Res ult * [...] on 04/19/2025 12:40 AM us Julia Jacobson FACILITY EXAMINER IMG XR PROCEDURES Final Res ult * CT OUTSIDE IMAGES (04/18/2025 7:36 PM EST) Only the most recent of5 resultswithin the time period is included. Anatomical Region Laterality Modality Computed Tomogra phy 04/18/2025 7:36 PM EST us External Provider IMG CT PROCEDURES Edited Resul t - Final * XR OUTSIDE IMAGES (04/18/2025 6:38 PM EST) Only the most recent of2 resultswithin the time period is included. Anatomical Region Laterality Modality Radiographic Bekah ging 04/18/2025 6:38 PM EST us External Provider IMG XR PROCEDURES Edited Resul t - Final from Last 3 Months Insurance [employer] MEDICARE Advance Directives * Full Code (Latest Code Status on File) Date Activated Date Inactivated Comments 04/20/2025 3:47 PM 04/26/2025 3:20 PM Question Answer Comments I have reviewed the capacity from the link above and, if needed, have updated to appropriate status: Yes Care Teams Kitchen Designer Relationship Specialty Start Date End Date Tho Bowden MD [address] [place] [id number] [facility] - General 10/28/20
--- OUTSIDE RECORDS SUMMARY | 2025-05-17 10:24 | XMS_ITS | Clinical Summary ---
[facility] Address [address] [place] [id number] Care Team Providers Care Technician Chemical Cleaning Name Role Phone Provider, No Known Primary [...] SCREENING 06/23/2018 INFLUENZA VACCINE 01/15/2025 Care Teams Technician Chemical Cleaning Relationship Specialty Start Date End Date Provider, No Known [facility] [place] [address] PCP - General 06/23/18
--- OUTSIDE RECORDS SUMMARY | 2025-05-17 10:25 | XMS_ITS | Encounter Summary ---
Author Organization Healthcare Address [address] [place] [address] Care Team Providers Care Parts Expediter Name Role Phone Tho Bowden MD Primary Care Provider +1- [phone] Encounter Details Date Type Department Care Team (Late st Contact Info) Description 04/18/2025 Orders Only External Location [address] [place] [address] Provider, External Social History Tobacco Use Types [...] time in the past 12 m [facility], were you homeless or living in a mcfp (including now)? No 04/19/2025 [facility] Utilities Answer Date Recorded In the past [...] Info) Description 06/21/2025 9:30 AM EST Appointment [facility] Radiology [address] [place] [address] 06/21/2025 10:10 AM EST Office Visit [facility] Orthopaedic Surgery & Sports Medicine [address] [place] [address] Wai Motley MD [address] [place] [phone] documented as of this encounter Procedures Procedure Name Priority Date/Time Associated Diagnosis Comments XR OUTSIDE IMAGES 04/18/2025 6:38 PM EST documented in this encounter Results * XR OUTSIDE IMAGES (04/18/2025 6:38 PM EST) Anatomical Region Laterality Modality Radiographic Bekah ging 04/18/2025 6:38 PM EST us External Provider IMG XR PROCEDURES Edited Resul t - Final documented in this encounter Visit Diagnoses Not on filedocumented in this encounter Additional Health Concerns Assessment Noted Time A Body Mass Index follow-up plan has been documented for the patient 04/26/2025 11:27 AM EST documented as of this encounter Care Teams Parts Expediter Relationship Specialty Start Date End Date Tho Bowden MD [address] [place] [address] PCP - General 10/28/20 documented as of this encounter
--- OUTSIDE RECORDS SUMMARY | 2025-05-17 10:25 | XMS_ITS | Encounter Summary ---
Author Organization Healthcare Address [address] [place] [address] Care Team Providers Care Mortarman Name Role Phone Tho Bowden MD Primary Care Provider +1- [phone] Encounter Details Date Type Department Care Team (Late st Contact Info) Description 04/18/2025 Orders Only External Location [address] [place] [address] Provider, External Social History Tobacco Use Types [...] were you homeless or living in a detention (including now)? No 04/19/2025 [facility] Utilities Answer Date Recorded In the [...] Appointment [facility] Radiology [address], [address] [place] [address] 06/21/2025 10:10 AM EST Office Visit [facility] Orthopaedic Surgery & Sports Medicine [address] [place] [address] Wai Motley MD [address] [place] [phone] documented as of this encounter Procedures Procedure [...] documented as of this encounter Care Teams Mortarman Relationship Specialty Start Date End Date Tho Bowden MD [address] [place] [address] PCP - General 10/28/20 documented as of this encounter
--- OUTSIDE RECORDS SUMMARY | 2025-05-17 10:25 | XMS_ITS | Encounter Summary ---
Author Organization Healthcare Address [address] [place] [address] Care Team Providers Care Glass Furnace Tender Name Role Phone Tho Bowden MD Primary Care Provider +1- [phone] Encounter Details Date Type Department Care Team (Late st Contact Info) Description 04/18/2025 Orders Only External Location [address] [place] [address] Provider, External Social History Tobacco Use Types [...] in a retirement (including now)? No 04/19/2025 [facility] Utilities Answer Date Recorded In the [...] Info) Description 06/21/2025 9:30 AM EST Appointment [facility] Radiology [address] [place] [address] 06/21/2025 10:10 AM EST Office Visit [facility] Orthopaedic Surgery & Sports Medicine [address] [place] [address] Wai Motley MD [address] [place] [phone] documented as of this encounter Procedures Procedure [...] documented as of this encounter Care Teams Glass Furnace Tender Relationship Specialty Start Date End Date Tho Bowden MD [address] [place] [address] PCP - General 10/28/20 documented as of this encounter
--- OUTSIDE RECORDS SUMMARY | 2025-05-17 10:25 | XMS_ITS | Encounter Summary ---
Author Organization Healthcare Address [address] [place] [address] Care Team Providers Care Seismic Prospecting Supervisor Name Role Phone Tho Bowden MD Primary Care Provider +1- [phone] Encounter Details Date Type Department Care Team (Late st Contact Info) Description 04/18/2025 Orders Only External Location [address] [place] [address] Provider, External Social History Tobacco Use Types [...] any time in the past 12 m [facility], were you homeless or living in a mcfp (including now)? No 04/19/2025 [facility] Utilities Answer Date Recorded In the [...] Info) Description 06/21/2025 9:30 AM EST Appointment [facility] Radiology [address], [address] [place] [address] 06/21/2025 10:10 AM EST Office Visit [facility] Orthopaedic Surgery & Sports Medicine [address] [place] [address] Wai Motley MD [address] [place] [phone] documented as of this encounter Procedures Procedure [...] documented as of this encounter Care Teams Seismic Prospecting Supervisor Relationship Specialty Start Date End Date Tho Bowden MD [address] [place] [address] PCP - General 10/28/20 documented as of this encounter
--- OUTSIDE RECORDS SUMMARY | 2025-05-17 10:25 | XMS_ITS | Encounter Summary ---
Author Organization Healthcare Address [address] [place] [address] Care Team Providers Care Photography Instructor Name Role Phone Tho Bowden MD Primary Care Provider +1- [phone] Encounter Details Date Type Department Care Team (Late st Contact Info) Description 04/18/2025 Orders Only External Location [address] [place] [address] Provider, External Social History Tobacco Use Types [...] a skilled nursing (including now)? No 04/19/2025 [facility] Utilities Answer Date Recorded In the [...] Info) Description 06/21/2025 9:[address] [facility] Radiology [address] [place] [address] 06/21/2025 10:10 AM EST Office Visit [facility] Orthopaedic Surgery & Sports Medicine [address] [place] [address] Wai Motley MD [address] [place] [phone] documented as of this encounter Procedures Procedure Name Priority Date/Time Associated Diagnosis Comments CT OUTSIDE IMAGES 04/18/2025 7:28 PM EST documented in this encounter Results * CT OUTSIDE IMAGES (04/18/2025 7:28 PM EST) Anatomical Region Laterality Modality Computed Tomogra phy 04/18/2025 7:28 PM EST us External Provider IMG CT PROCEDURES Edited Resul t - Final documented in this encounter Visit Diagnoses Not on filedocumented in this encounter Additional Health Concerns Assessment Noted Time A Body Mass Index follow-up plan has been documented for the patient 04/26/2025 11:27 AM EST documented as of this encounter Care Teams Photography Instructor Relationship Specialty Start Date End Date Tho Bowden MD [address] [place] [address] PCP - General 10/28/20 documented as of this encounter
--- NOTE | 2025-05-17 10:30 | MM_ITS ---
PROCEDURE INFORMATION: Exam: MG Bilateral Screening 3D Mammography Exam date and time: 05/17/2025 10:18 AM Age: 64 years old Clinical indication: Screening mammogram TECHNIQUE: Imaging protocol: Bilateral Screening tomosynthesis and 2D mammography including computer-aided detection (CAD) when performed. COMPARISON: 1. MG MM DIG SCREENING MAMM BI W/CAD 03/31/2024 7:52 AM 2. MG MM DIG MAMM BI DX W/CAD 12/01/2021 1:52 PM 3. MG MM DIG MAMM BI DX W/CAD 06/01/2021 1:01 PM 4. MG MM DIG SCREENING MAMM BI W/CAD 04/03/2021 1:26 PM FINDINGS: MAMMOGRAPHY: Breast composition: There are scattered areas of fibroglandular density. Mass: None. Architectural distortion: No new or suspicious architectural distortion. Calcifications: No new or suspicious calcifications are present Asymmetric density: No new or suspicious asymmetric density is present Skin thickening: None. Axillary adenopathy: None. IMPRESSION: No mammographic evidence of malignancy. Recommend annual screening mammography unless otherwise clinically indicated. ASSESSMENT: BI-RADS category 1: Negative.
== END 2025-05-17 23:59 | disposition home or self-care (01) ==
LOC: RAD 10:03
PROVIDERS: PCP Nurse Practitioner Family; Visit Provider Nurse Practitioner Family
DX: Z12.31 Encounter for screening mammogram for malignant neoplasm of breast (principal); R92.323 Mammographic fibroglandular density, bilateral breasts
CPT/HCPCS: 77063; 77067

== ENCOUNTER 2025-06-14 08:00 | Outpatient (RCR) | payer MEDICARE, SELFPAY ==
--- NOTE | 2025-05-24 11:12 | HMH.PTOPEV ---
PT Evaluation Rehab PT Outpatient Evaluation Start: 05/24/25 10:03 Freq: Status: Active Protocol: Document 05/24/25 10:04 LANI (Rec: 05/24/25 11:11 LANI [id number]) E-signed By Stefanie Ricks, PT Outpatient Therapy Subjective History Subjective History Pt is a 64 y/o female referred to PT for personal history of (healed) traumatic fracture. Pt reports she fell in a hole and fractured her left leg on 04/18/25. Pt reports she presented to [facility] ER and had multiple imaging modalities with knee xray findings of Comminuted complete transverse fracture of the distal left femoral metaphysis. Pt reports she was transferred to and underwent L ORIF on 04/20/25 without complications. Pt reports she was in the hospital for 2 weeks, denies being seen by PT or being provided with a HEP during hospitalization. Pt reports she has 4 steps with HR to enter her home she is traversing without issues leading with the right leg although is unable to lead with the left leg. Pt reports she is having trouble transferring over her bath tub so she is currently sponge bathing. Pt reports she is WBAT and using a rolling walker for community ambulation. Pt states she is typically not using an AD for household ambulation but sometimes uses a SPC. Pt reports she feels like her left leg is weak and feels like it will buckle and causes her to almost fall, denies actual falls. Pt reports pain is located along the incision and her knee aggravated by prolonged standing, walking, and traversing stairs leading with the left leg. Pt states she has had one follow-up visit with her surgeon so far to have stitches removed, states her next follow-up visit is on 06/21/25 and is supposed to have radiographs then. Pt reports she is taking Hydrocodone 3x/day, a prescribed muscle relaxer and OTC Tylenol which she states assists with pain. Pt reports she continues to have swelling of the LLE that is worse at the end of the day. Pt denies wear of a compression sock or elevating her leg to assist with swelling. Pt denies numbness/tingling, redness, warmth or calf pain of the LLE. Medical History: Hx of R & L TKA, Hypertension, Type II Diabetes, Asthma, COPD, Hyperlipidemia New diagnosis of No cancer in past 12 months? Chief Complaint Pain,Stiff,Swelling,Gives out/Unstable,Weakness Symptom Type Ache,Sharp,Dull Symptoms Relieved By Rest/Positioning,OTC Meds,Prescription Meds Symptoms Aggravated Sitting,Standing,Physical Activity,Walking By Current Functional Housework,Standing,Sitting,Recreation Activity,Walking, Limitations Stairs,Balance Symptom Description Constant but Variable Level of pain today 5 (0-10) Pain scale - at its 3 best (0-10) Pain scale - at its 9 worst (0-10) Hip/Knee Eval Gait Observation General Gait Pattern Antalgic Gait,Decrease Weight Bear (L),Decrease Stride Observation Lngth (L) Assistive Device Assistive Devices Rolling / Wheeled Walker MMT left Hip Flexion Strength 3+ Fair+ Grade Hip Abduction 4- Good- Strength Grade Hip Adduction 4- Good- Strength Grade Hip Extension 3+ Fair+ Strength Grade Knee Extension 3 Fair Strength Grade Knee Flexion 4- Good- Strength Grade ROM Hip Flexion w/Knee 112 Flexed Active Range of Motion (degrees) Hip External 35 Rotation Active Range of Motion ( degrees) Hip Internal 35 Rotation Active Range of Motion ( degrees) Knee Extension 9 Active Range of Motion (degrees) Knee Flexion Active 87 Range of Motion ( degrees) Lower Extremity Functional Index Activities Today, do you or would you have any difficulty at all with: a.Any of your usual Moderate difficulty work, housework or school activities b. Your usual A little bit of difficulty hobbies, recreational or sporting activities c. Getting into or Quite a bit of difficulty out of the bath d. Walking between A little bit of difficulty rooms e. Putting on your A little bit of difficulty shoes or socks f. Squatting Moderate difficulty g. Lifting an object Moderate difficulty , like a bag of groceries from the floor h. Performing light Moderate difficulty activities around your home i. Performing heavy Quite a bit of difficulty activities around your home j. Getting into or Moderate difficulty out of a car k. Walking 2 blocks Quite a bit of difficulty l. Walking a mile Quite a bit of difficulty m. Going up or down Quite a bit of difficulty 10 stairs (about 1 flight of stairs) n. Standing for 1 Moderate difficulty hour o. Sitting for 1 Moderate difficulty hour p. Running on even Extreme difficulty or unable to perform activity ground q. Running on uneven Extreme difficulty or unable to perform activity ground r. Making sharp Extreme difficulty or unable to perform activity turns while running fast s. Hopping Extreme difficulty or unable to perform activity t. Rolling over in Moderate difficulty bed LEFI Score Lower Extremity 30 Functional Index Score Miscellaneous Dx PT Eval Objective Objective Observation: L knee valgus noted in standing and walking; incision well healing without SOI 5x sit to stand: 15 *unable to perform SLR without noted extension lag Outpatient Therapy Assessment Impairments Problems/ Palpation Tenderness,Impaired Range of Motion,Impaired Impairmments Strength,Impaired Transfers,Impaired Gait Pattern, Impaired Walking,Impaired Standing,Impaired Shower/ Bathing,Impaired Household Care,Impaired Stair Climbing ,Impaired Incline Stepping,Impaired Stepping on Uneven Surface,Impaired Squatting,Impaired Recreational Activities,Impaired Balance,Increased Edema,Lymphedema Present,Wound Care Needs,Subjective C/O Pain,Impaired Self Care/Self Management Prognosis Rehab Potential Good Comment Pt provided with written/illustrated HEP instruction to perform 2-3x/day of: quad sets, SAQ, AAROM heel slides , gastroc stretch with towel, knee extension prop and sit to stands which were reviewed and performed this date to ensure proper form with good tolerance. Clinical Impression Consistent with Yes Diagnosis PT Patient Goals PT Patient Goals PT Short Term 3 weeks: Patient Goals 1. Verbalize compliance with HEP to assist with overall progress. 2. Improve L knee AROM to at least 0-5-100 to assist with gait mechanics and knee mobility. 3. Improve L knee MMT to at least 4-/5 grossly to assist with function. 4. Improve LEFS score to 40/80 to improve overall QOL/ function. 5. Improve pain at worst to at least 7/10 on VAS to improve overall QOL/function. 6. Improve 5x sit to stand to 12 or less to decrease fall risk. PT Retirement Patient 6 weeks: Goals 1. Improve L knee AROM to at least 0-110 to assist with gait and function. 2. Improve LLE MMT to 4-4+/5 grossly to assist with function. 3. Report ability to transfer in/out of bath tub I to assist with safe transfers and self care. 4. Demonstrate proper gait mechanics with LRD to decrease fall risk. 5. Improve LEFS score to 50/80 to improve overall QOL/ function. 6. Improve pain at worst to 5/10 on VAS to improve overall QOL/function. Outpatient Therapy Plan of Care Treatment Plan May Include Therapeutic Exercise Yes Including Home Exercise Program Manual Therapy Yes Techniques Neuromuscular Re- Yes education Therapeutic Yes Activities to Return to Previous Functional/Work Level Gait Training Yes ADL/Self Care Yes Education Thermal Modalities Yes Electrical Yes Stimulation Orthotics/Bracing/ Yes Splinting Vasopneumatic Yes Compression Pump Massage Yes Manual Lymphatic Yes Drainage Group Therapy for Yes Medicare Eval/Re-Eval Yes Frequency Times per week 2-3 Duration Number of Weeks 6 Addendums This patient is a No candidate for social or vocational rehab ? Patient/Guardian Yes verbally acknowledges understanding of treatment program and consents to further treatment? Patient/Guardian Yes verbally acknowledges understanding of diagnosis, prognosis and goals for treatment? Eval Complexity PT Charges 17415 - Moderate Complexity Shoulder/Elbow Eval Shoulder Objective Measurements Elbow Objective Measurements PHYSICIAN CERTIFICATION: I certify the specified therapy services for Parul Leone are required, authorized, and reviewed every 30 days.
== END 2025-06-14 23:59 | disposition home or self-care (01) ==
LOC: PT 08:00
PROVIDERS: PCP Nurse Practitioner Family; Visit Provider Nurse Practitioner Family
DX: Z87.81 Personal history of (healed) traumatic fracture (principal)
CPT/HCPCS: 97110; 97162; 97530